=== PATIENT | male | born 1945 | race Caucasian/White ===

== ENCOUNTER → 2016-09-30 | Outpatient (CLI) | payer OTHER ==
[~2016-09-30] MED LIST: ACET-1311 PO; ALBU1.257 NEB; ALBU2SYP9 INH; AMPI500C9 PO; ASCO10003 PO; ATOR-26 PO; CETI10TA84 PO; CIPR1TAB11 PO; CLOP1TAB15 PO; CYAN500T13 PO; FINA5TAB PO; HYT/2 PO; KFL500 PO; LISI-461 PO; METO25TA56 PO; NITR1CAP32 PO; OXYC-57 PO; PYRI100T4 PO; SPRIN/30 INH; SULF800T23 PO; SYMIN/8045 INH; SYMIN160 INH; VNTHFA/IN INH
== END | disposition home or self-care (01) ==
LOC: C.LABSPEC 17:16
PROVIDERS: ATTEND Urology
DX: C67.9 Malignant neoplasm of bladder, unspecified (principal)

== ENCOUNTER 2016-11-27 04:55 | Observation (INO) | payer OTHER ==
[2016-11-17 11:00] VITALS: BMI 39.0
--- NOTE | 2016-11-17 11:49 | PAT Medication Instructions ---
Service Date Nov 17, 2016. Current Home Medication List Albuterol Sulf (Ventolin), 2 PUFF INH Q4 PRN for Shortness of Breath Ascorbic Acid (Vitamin C), 1 TAB PO QAM Atorvastatin (Lipitor), 80 MG PO QPM Budesonide/Formoterol Fumarate (Symbicort 80/4.5 Inhaler), 1 PUFFS INH BID Cetirizine (Zyrtec), 10 MG PO QAM Clopidogrel (Plavix), 75 MG PO QAM Cyanocobalamin (Vitamin B12 500MCG), 500 MCG PO QAM Finasteride (Proscar), 5 MG PO QAM Lisinopril (Zestril), 10 MG PO QAM Metoprolol Tartrate (Lopressor) (Lopressor), 12.5 MG PO BID Pyridoxine (Vitamin B6), 100 MG PO QAM Terazosin Hcl (Hytrin), 2 MG PO QPM Tiotropium [place] (Spiriva Handihaler), 1 CAP INH QAM Medication Instructions For Your Scheduled Surgery - Check with surgeon/prescribing physician for instructions; Clopidogrel (Plavix), 75 MG PO QAM - Hold the following medications the morning of surgery: Pyridoxine (Vitamin B6), 100 MG PO QAM Lisinopril (Zestril), 10 MG PO QAM Cyanocobalamin (Vitamin B12 500MCG), 500 MCG PO QAM Finasteride (Proscar), 5 MG PO QAM Cetirizine (Zyrtec), 10 MG PO QAM Ascorbic Acid (Vitamin C), 1 TAB PO QAM - Take the following medications the morning of surgery with a sip of water: Tiotropium [place] (Spiriva Handihaler), 1 CAP INH QAM Metoprolol Tartrate (Lopressor) (Lopressor), 12.5 MG PO BID Budesonide/Formoterol Fumarate (Symbicort 80/4.5 Inhaler), 1 PUFFS INH BID Albuterol Sulf (Ventolin), 2 PUFF INH Q4 PRN for Shortness of Breath (if needed) - Take the following medications as scheduled the night before surgery: Terazosin Hcl (Hytrin), 2 MG PO QPM Metoprolol Tartrate (Lopressor) (Lopressor), 12.5 MG PO BID Budesonide/Formoterol Fumarate (Symbicort 80/4.5 Inhaler), 1 PUFFS INH BID Albuterol Sulf (Ventolin), 2 PUFF INH Q4 PRN for Shortness of Breath (if needed ) Atorvastatin (Lipitor), 80 MG PO QPM If you have any questions please call us at [phone] or [phone] or [phone]
--- NOTE | 2016-11-17 12:20 | DIAGNOSTIC IMAGING REPORT ---
CHEST 2 VIEWS ROUTINE HISTORY: 71-year-old male resents for preoperative exam. History of COPD. COMPARISON: PET CT 07/18/2015. TECHNIQUE: Frontal and lateral views of the chest FINDINGS: The cardiac silhouette is within normal limits. Calcified granuloma of the right upper lobe laterally is unchanged. There is no pneumothorax or pleural effusion. Lungs are hyperinflated and hyper lucent with diaphragmatic flattening. Masslike opacity of the lingula measures 2.8 x 2.7 cm, likely correlating with the previously described hypermetabolic nodule seen on PET/CT dated 07/18/2015 at which time it measured approximately 2.0 x 2.1 cm. Additionally, there is an ill-defined opacity overlying the spine on lateral view which may correlate with the previously described right lower lobe nodule. Multiple remote appearing right lateral rib fractures are seen. IMPRESSION: 1. Masslike opacity of the lingula likely represents the previously described hypermetabolic nodule seen on PET/CT dated 07/18/2015. Further evaluation with CT of the chest is recommended to assess for progression of disease. 2. Masslike opacity overlying the spine on the lateral view may represent the previously described suspicious nodule of the right lower lobe. 3. Emphysema. 4. Prior granulomatous disease. Electronically signed by: Mauricio Andre 11/17/2016 12:19 PM Dictated Date/Time: 11/17/2016 12:13 PM
[2016-11-17 12:33] LABS: BASO % 0.2 %; BASO ABS # 0.03 K/uL (0-0.2); COMPLETE YES; EOS % 0.8 %; HEMATOCRIT 44.6 % (42-52); LYMPH % 15.8 %; LYMPH ABS # 2.19 K/uL (1.2-3.4); MEAN CELL VOLUME 94.5 fL (80-100); MEAN CORPUSCULAR HEMOGLOBIN 31.6 pg (25-34); MEAN CORPUSCULAR HGB CONC 33.4 g/dl (32-36); MEAN PLATELET VOLUME 10.2 fL (7.4-10.4); MONO % 8.4 %; NEUT % 73.8 %; PLATELET COUNT 255 K/uL (130-400); RED BLOOD COUNT 4.72 M/uL (4.7-6.1); WHITE BLOOD COUNT 13.83 K/uL (4.8-10.8)
[2016-11-17 12:34] LABS: URINE APPEARANCE CLEAR (CLEAR); URINE BILIRUBIN NEG (NEG); URINE COLOR YELLOW; URINE EPITHELIAL CELL AUTO 20-30 /lpf (0-5); URINE NITRITE NEG (NEG); URINE PH 5.5 (4.5-7.5); URINE SPECIFIC GRAVITY 1.009 (1.000-1.030); UROBILINOGEN NEG (NEG)
[2016-11-17 12:37] LABS: MANUAL MICROSCOPIC REQUIRED? NO; REVIEW REQ? NO
[2016-11-17 13:44] LABS: BUN/CREATININE RATIO 11.4 (10-20); CALCIUM 9.5 mg/dl (8.5-10.1); CREATININE 1.1 mg/dl (0.60-1.40); POTASSIUM 4.6 mmol/L (3.5-5.1)
[~2016-11-27] VITALS: Ht 172.7 cm; Wt 114.9 kg
[2016-11-27] VITALS (9 sets, daily range): BP systolic 113–153; BP diastolic 64–94; PULSE 67–95; TEMP 36.6–37; O2SAT 92–97; Ht 172.7 cm; Wt 114.9 kg
[~2016-11-27 04:55] MED LIST changes: -ACET-1311 PO; -ALBU1.257 NEB; -AMPI500C9 PO; -CIPR1TAB11 PO; -KFL500 PO; -NITR1CAP32 PO; -OXYC-57 PO; -SULF800T23 PO; -SYMIN160 INH; -VNTHFA/IN INH
[2016-11-27] MEDS ORDERED: LACTATED RINGER'S 1000ML 1,000 ML IV SCH (06:00)
[2016-11-27] MEDS ORDERED: CIPROFLOXACIN / D5W 400 MG IV SCH (06:00)
[2016-11-27] MEDS ORDERED: CIPR1TAB11 PO (06:10)
[2016-11-27] MEDS ORDERED: PROPOFOL IV EMULSION 10 MG/ML 20 ML VIAL IV ONE (06:55)
[2016-11-27] MEDS ORDERED: LIDOCAINE HCL 2% 2 ML VIAL (20MG/ML) ONE (06:55)
[2016-11-27] MEDS ORDERED: ONDANSETRON INJ 2 MG/ML 2 ML VIAL ONE (06:55)
[2016-11-27] MEDS ORDERED: DEXAMETHASONE SOD INJ 4 MG/ML VIAL ONE (06:55)
[2016-11-27] MEDS ORDERED: FENTANYL CITRATE INJ 50 MCG/1 ML 2 ML VIAL ONE (06:56)
[2016-11-27] MEDS ORDERED: MIDAZOLAM HCL 1 MG/ML 2ML VIAL ONE (06:56)
[2016-11-27] MEDS ORDERED: ATROPINE SULFATE 0.1 MG/ML 5ML SYR IV PRN (07:00)
[2016-11-27] MEDS ORDERED: EpHEDrine SULFATE INJ 50 MG/ML AMP IV PRN (07:00)
[2016-11-27] MEDS ORDERED: FENTANYL CITRATE INJ 50 MCG/1 ML 2 ML VIAL IV PRN (07:00)
[2016-11-27] MEDS ORDERED: ONDANSETRON INJ 2 MG/ML 2 ML VIAL IV PRN (07:00)
--- NOTE | 2016-11-27 07:15 | History & Physical Bridge Note ---
H&P Re-Evaluation Bridge Note: I have examined the patient, reviewed the History & Physical and in the interval since the performance of the History & Physical I have noted the following changes of clinical significance: No changes noted
--- NOTE | 2016-11-27 09:51 | [facility] Post Operative Brief Note ---
Immediate Operative Summary Operative Date Nov 27, 2016. Pre-Operative Diagnosis Bladder Tumor, Elevated Prostatic Specific Antigen Post-Operative Diagnosis Bladder Tumor, Elevated Prostatic Specific Antigen Procedure(s) Performed Transuretheral Resection Bladder Tumor, Prostatic Needle Biopsy, Partial Resection of Prostate Surgeon Dr. Paula Roof Cement And Paint Maker Helper Surgeon(s) none Estimated Blood Loss 50 cc Findings large obstructing prostae w large median lobe that reqired partial resction to access r bladder neck bladder tumor 4 cm tumor r bladder neck l lateral wall several smaller superficial tumorws several small tumors 1 cm or less posterior wall behind trigone Specimens A: Left Lateral Wall Bladder Biopsy B: Right Anterior Wall Bladder Biopsy C: Median Lobe of Prostate/ Right Lateral Lobe at Base D: Large Bladder Tumor Right Bladder Neck E: Base of Bladder Tumor F: Base of Right Prostate Biopsy G: Mid Prostate Biopsy Right H: [place] of Right Prostate Biopsy I: Anterior Prostate Biopsy Right J: Base of Left Prostate Biopsy K: Mid Prostate Biopsy Left L: [place] of Prostate Biopsy Left Complication(s) None
[2016-11-27] MEDS ORDERED: OXYCODONE/ACETAMINOPHEN 5-325 TAB PO PRN (10:00)
[2016-11-27] MEDS ORDERED: MoRPHine SULFATE 2 MG/ML CARP IV PRN (10:00)
--- NOTE | 2016-11-27 10:13 | [facility] Operative Report ---
Operative Report Operative Date Nov 27, 2016. Pre-Operative Diagnosis Bladder Tumor, Elevated Prostatic Specific Antigen Post-Operative Diagnosis Bladder Tumor, Elevated Prostatic Specific Antigen Procedure(s) Performed Transuretheral Resection Bladder Tumor, Prostatic Needle Biopsy, Partial Resection of Prostate Surgeon Dr. Paula Training Program Developer Surgeon(s) none Estimated Blood Loss 50 cc Findings Patient had a large prostate with a large median lobe which made access to the largest bladder tumor at the right bladder neck impossible. Resection was necessary of the right base prostate and median lobe to get access to the bladder tumor. Patient had several 1 cm or less bladder tumors on the posterior wall Patient had some superficial tumors lateral and posterior to the left ureteral orifice that was biopsied and fulgurated Specimens A: Left Lateral Wall Bladder Biopsy B: Right Anterior Wall Bladder Biopsy C: Median Lobe of Prostate/ Right Lateral Lobe at Base D: Large Bladder Tumor Right Bladder Neck E: Base of Bladder Tumor F: Base of Right Prostate Biopsy G: Mid Prostate Biopsy Right H: [place] of Right Prostate Biopsy I: Anterior Prostate Biopsy Right J: Base of Left Prostate Biopsy K: Mid Prostate Biopsy Left L: [place] of Prostate Biopsy Left Description of Procedure The patient was taken to the cystoscopy suite he being given preoperative antibiotics he been off Plavix for 5 days. He had Venodyne stockings on. He was placed in the dorsal lithotomy position and prepped and draped in the usual sterile fashion. A 22 Portuguese cystoscope was passed with a 30 mL lens and the bladder was carefully examined with the 30 and the 7910 lens. Patient had a large median lobe and a large obstructing prostate which made access to the largest tumor which was inferior lateral to the right ureteral orifice difficult. Patient also had several smaller 1 cm or less tumors on the posterior wall behind the trigone and on the left lateral wall posterior lateral to the trigone. Initially the tumors were resected with cup biopsy forceps and the Bovie catheter on the left side and the smaller tumors were biopsied with the cup biopsy forceps and fulgurated with the Bugbee as well. At this juncture I was unable to access the 45 cm tumor near the bladder neck inferior to the right ureteral orifice without resecting part of the prostate and this was done. Approximately 5-6 g of tissue was resected at the median lobe and the right entrance to the bladder. At this point was able to access the large 4-5 cm bladder tumor with the resectoscope and it was resected down to the base. 2 cup biopsy of the base of the tumor were taken. The base of the tumor was broadly fulgurated. At this point the scope was removed. There was no evidence of bleeding from the prostate of the bladder prior to this. The ultrasound was taken from the operative field and a probe was placed in the rectum. Images were taken and the prostate was well over 60-70 g. Biopsies were taken from right base to the right middle part of the prostate to the right apex 2 and the right anterior portion 1. Moderate bleeding this point the left gail prostate tissue were taken at the base to taken from the mid aspect of the prostate in 2 taken from the apex. The patient was then transferred to the recovery room after Sharma catheter was placed in stable condition this. Again operative report on Maikol Shetty. I attest to the content of the Intraoperative Record and any orders documented therein. Any exceptions are noted below.
[2016-11-27] MEDS ORDERED: ALBUT/IPRATROP 3MG/0.5MG NEB 3 ML VIAL INH PRN (11:45)
[2016-11-27] MEDS: D5W AND 1/2NSS 1,000 ML IV SCH ×2 (11:47→23:22)
--- NOTE | 2016-11-27 11:51 | Anesthesiology Progress Note ---
Anesthesia Post Op Note Date & Time Nov 27, 2016 at 11:51 Vital Signs Pain Intensity: 0.0 Vital Signs Past 12 Hours Date Time Temp Pulse Resp B/P (MAP) Pulse Ox O2 Delivery O2 Flow Rate FiO2 11/27/16 10:45 Nasal Cannula 2.0 11/27/16 10:45 36.7 80 16 153/81 (105) 97 Nasal Cannula 2.0 11/27/16 10:45 Nasal Cannula 2.0 11/27/16 10:25 36.1 72 18 128/83 95 Nasal Cannula 2 11/27/16 10:15 77 18 146/82 94 Nasal Cannula 2 11/27/16 10:05 76 20 159/89 95 Nasal Cannula 2 11/27/16 09:55 85 20 159/81 98 Oxymask 10 11/27/16 09:45 94 20 173/82 98 Oxymask 10 11/27/16 09:34 36 106 24 133/70 98 Oxymask 10 11/27/16 05:51 36.7 88 22 131/65 (87) 94 Room Air Notes Mental Status: alert / awake / arousable, participated in evaluation Pt Amnestic to Procedure: Yes Nausea / Vomiting: adequately controlled Pain: adequately controlled Airway Patency, RR, SpO2: stable & adequate BP & HR: stable & adequate Hydration State: stable & adequate Anesthetic Complications: no major complications apparent
--- NOTE | 2016-11-27 12:28 | Medical Consult ---
Consultation Date of Consultation: Nov 27, 2016. Attending Physician: Richard Paula M.D. History of Present Illness This is a 71 year old male with a PMH of a L occipital CVA, COPD and ongoing tobacco abuse, HTN, hx. of non-invasive bladder CA s/p BCG immunotherapy, presents for a TURBT procedure. States he goes to the [facility] in [place] - had a routine cystoscopy and they mentioned that he had recurrence of bladder tumors - recommended to go to [place], but patient refused and is now here for TURBT procedure. No issues after the procedure, denies any symptoms. Social History Smoking Status: Current Every Day Smoker Allergies Coded Allergies: Aspirin (Verified Allergy, Unknown, ITCHY, 11/27/16) Uncoded Allergies: ADHESUVE TAPE (Allergy, Unknown, RASH, 11/17/16) YELLOW MUSTARD (Allergy, Unknown, HIVES, SOB, ITCHY, 11/17/16) Current Inpatient Medications Current Inpatient Medications Medications (Trade) Dose Ordered Sig/Mckenna Route Start Time Stop Time Status Last Admin Dose Admin Ciprofloxacin/ Dextrose 200 ml @ 100 mls/hr PREOP IV 11/27/16 06:00 11/27/16 18:00 11/27/16 07:16 100 MLS/HR Fentanyl Citrate (Fentanyl Inj) 50 mcg Q5M PRN IV 11/27/16 07:00 11/27/16 12:00 11/27/16 10:08 50 MCG Ondansetron HCl (Zofran Inj) 4 mg ONE PRN IV 11/27/16 07:00 11/27/16 12:00 Ephedrine Sulfate (EpHEDrine SULFATE INJ) 5 mg Q5M PRN IV 11/27/16 07:00 11/27/16 12:00 Atropine Sulfate (Atropine Sulfate 0.1MG/Ml Inj) 0.5 mg Q1M PRN IV 11/27/16 07:00 11/27/16 12:00 Dextrose/Sodium Chloride 1,000 ml @ 75 mls/hr [id number] IV 11/27/16 09:51 12/27/16 09:50 Morphine Sulfate (MoRPHine SULFATE INJ) 2 mg Q1H PRN IV 11/27/16 10:00 12/11/16 09:59 Oxycodone/ Acetaminophen (Percocet 5-325mg Tab) 1 tab Q4H PRN PO 11/27/16 10:00 12/11/16 09:59 Albuterol Sulfate (Ventolin Syrup) 4 mg Q4 PRN PO 11/27/16 10:00 12/27/16 09:59 UNV Atorvastatin Calcium (Lipitor Tab) 80 mg QPM PO 11/27/16 21:00 12/27/16 20:59 Budesonide/ Formoterol Fumarate (Symbicort 80/ 4.5 Inh) 1 puffs BID INH 11/27/16 21:00 12/27/16 20:59 Cetirizine HCl (zyrTEC TAB) 10 mg QAM PO 11/28/16 09:00 12/28/16 08:59 Ciprofloxacin (Ciprofloxacin Tab) 500 mg BID PO 11/27/16 21:00 12/07/16 20:59 Finasteride (Proscar Tab) 5 mg QAM PO 11/28/16 09:00 12/28/16 08:59 Lisinopril (Zestril Tab) 10 mg QAM PO 11/28/16 09:00 12/28/16 08:59 Metoprolol Tartrate (Lopressor Tab) 12.5 mg BID PO 11/27/16 21:00 12/27/16 20:59 Pyridoxine HCl (Vitamin B-6 Tab) 100 mg QAM PO 11/28/16 09:00 12/28/16 08:59 Terazosin HCl (Hytrin Cap) 2 mg QPM PO 11/27/16 21:00 12/27/16 20:59 Tiotropium [place] (Spiriva Handihaler Inhaler) 1 puff QAM INH 11/28/16 09:00 12/28/16 08:59 Review of Systems Constitutional: No fever, No chills, No weakness Eyes: + problem reported (chronic R peripheral vision issues) Respiratory: No cough, No sputum, No wheezing, No shortness of breath, No dyspnea on exertion Cardiovascular: No chest pain Abdomen: No pain, No nausea, No vomiting, No diarrhea Genitourinary - Male: + urinary frequency, + urinary hesitancy, No hematuria, No dysuria, No urinary urgency, No urinary retention, No urinary incontinence Neurologic: No weakness, No vertigo, No balance problems Psychiatric: No depression symptoms, No anxiety, No insomnia Endocrine: No fatigue Hematologic / Lymphatic: No abnormal bleeding/bruising Integumentary: No rash Allergic / Immunologic: No environmental allergies, No seasonal allergies Physical Exam Date Time Temp Pulse Resp B/P (MAP) Pulse Ox O2 Delivery O2 Flow Rate FiO2 11/27/16 10:45 Nasal Cannula 2.0 11/27/16 10:45 36.7 80 16 153/81 (105) 97 Nasal Cannula 2.0 11/27/16 10:45 Nasal Cannula 2.0 11/27/16 10:25 36.1 72 18 128/83 95 Nasal Cannula 2 11/27/16 10:15 77 18 146/82 94 Nasal Cannula 2 11/27/16 10:05 76 20 159/89 95 Nasal Cannula 2 11/27/16 09:55 85 20 159/81 98 Oxymask 10 11/27/16 09:45 94 20 173/82 98 Oxymask 10 11/27/16 09:34 36 106 24 133/70 98 Oxymask 10 11/27/16 05:51 36.7 88 22 131/65 (87) 94 Room Air General Appearance: no apparent distress, + obese Head: normocephalic, atraumatic Eyes: normal inspection ENT: hearing grossly normal Respiratory/Chest: chest non-tender, lungs clear, normal breath sounds, no respiratory distress, no accessory muscle use Cardiovascular: regular rate, rhythm, no edema, no murmur Abdomen/GI: normal bowel sounds, non tender, soft, + hernia (reducible, non- tender inguinal hernia) Extremities/Musculoskelatal: normal capillary refill, no pedal edema Neurologic/Psych: no motor/sensory deficits, alert, normal mood/affect Skin: normal color Lymphatic: no adenopathy Assessment & Plan This is a 71 year old male with a PMH of a L occipital CVA, COPD and ongoing tobacco abuse, HTN, hx. of non-invasive bladder CA s/p BCG immunotherapy presents for TURP procedure Bladder Tumor s/p TURBT resected bladder tumor, prostate biopsy secondary to elevated PSA management as per urology, including Cipro, Proscar doing well post-operatively check CBC and PRP Hx. of L occipital CVA hold Plavix for now, restart 5-7 days after procedure, when okay with urology continue high-intensity statin therapy COPD continue inhalers nebs as needed wean O2 as tolerated, does not use oxygen at home ambulation Lung Masses in the setting of Ongoing Tobacco Use patient has had multiple lung masses states he's had a biopsy of R lung, but was not sure of the results; resulted in R pneumothorax at that time CXR on 11/17 suggests multiple masses including lingula and R lower lobe recommend outpatient CT or PET scan HTN blood pressure stable continue Lisinopril and metoprolol DVT ppx as per urology FULL CODE
[2016-11-27 12:49] LABS: HEMATOCRIT 42.7 % (42-52); MEAN CELL VOLUME 94.9 fL (80-100); MEAN CORPUSCULAR HEMOGLOBIN 31.6 pg (25-34); MEAN CORPUSCULAR HGB CONC 33.3 g/dl (32-36); MEAN PLATELET VOLUME 10.4 fL (7.4-10.4); PLATELET COUNT 198 K/uL (130-400); WHITE BLOOD COUNT 10.02 K/uL (4.8-10.8)
[2016-11-27] MEDS ORDERED: IV FLUIDS COMPLETED PRN (13:00)
[2016-11-27 13:16] LABS: BUN/CREATININE RATIO 15.1 (10-20); CALCIUM 8.6 mg/dl (8.5-10.1); CREATININE 1.1 mg/dl (0.60-1.40); POTASSIUM 4.4 mmol/L (3.5-5.1)
[2016-11-27] MEDS: BUDESONIDE/FORMOTEROL FUMARATE 80/4.5 60 PUFFS/INHALER INH SCH (20:45)
[2016-11-27] MEDS: METOPROLOL TARTRATE 25 MG TAB PO SCH (20:47)
[2016-11-27] MEDS: CIPROFLOXACIN 250 MG TAB PO SCH (20:48)
[2016-11-27] MEDS ORDERED: ATORVASTATIN 40 MG TAB PO SCH (21:00)
[2016-11-28 03:00] VITALS: BP 115/78; PULSE 68; TEMP 36.6; O2SAT 93
[2016-11-28 07:15] VITALS: BP 130/74; PULSE 72; TEMP 36.6; O2SAT 92
--- NOTE | 2016-11-28 07:57 | Anesthesiology Progress Note ---
Anesthesia Post Op Note Date & Time Nov 28, 2016 at 07:56 Vital Signs Vital Signs Past 12 Hours Date Time Temp Pulse Resp B/P (MAP) Pulse Ox O2 Delivery O2 Flow Rate FiO2 11/28/16 07:15 36.6 72 16 130/74 (92) 92 Room Air 11/28/16 07:15 Room Air 11/28/16 03:00 36.6 68 16 115/78 (90) 93 Room Air 11/27/16 23:25 Room Air 11/27/16 22:50 36.6 77 16 118/64 (82) 92 Room Air 11/27/16 20:25 37.0 81 19 113/69 (84) 92 Room Air Notes Mental Status: alert / awake / arousable, participated in evaluation Pt Amnestic to Procedure: Yes Nausea / Vomiting: adequately controlled Pain: adequately controlled Airway Patency, RR, SpO2: stable & adequate BP & HR: stable & adequate Hydration State: stable & adequate Anesthetic Complications: no major complications apparent
--- NOTE | 2016-11-28 08:07 | Progress Note ---
Subjective Date of Service: Nov 28, 2016. Subjective Pt evaluation today including: conversation w/ patient, physical exam, chart review, lab review, review of studies Pain: none Voiding: luis catheter in place Objective Vital Signs Date Time Temp Pulse Resp B/P (MAP) Pulse Ox O2 Delivery O2 Flow Rate FiO2 11/28/16 07:15 36.6 72 16 130/74 (92) 92 Room Air 11/28/16 07:15 Room Air 11/28/16 03:00 36.6 68 16 115/78 (90) 93 Room Air 11/27/16 23:25 Room Air 11/27/16 22:50 36.6 77 16 118/64 (82) 92 Room Air 11/27/16 20:25 37.0 81 19 113/69 (84) 92 Room Air 11/27/16 15:20 Nasal Cannula 2.0 11/27/16 15:17 36.8 91 19 132/94 (107) 94 Nasal Cannula 3.0 11/27/16 13:47 95 16 147/71 (96) 92 Room Air 11/27/16 12:45 87 17 137/82 (100) 95 Nasal Cannula 2.0 11/27/16 12:10 67 16 152/75 (100) 97 11/27/16 11:15 36.7 72 16 150/80 (103) 97 Nasal Cannula 2.0 11/27/16 10:45 Nasal Cannula 2.0 11/27/16 10:45 36.7 80 16 153/81 (105) 97 Nasal Cannula 2.0 11/27/16 10:45 Nasal Cannula 2.0 11/27/16 10:25 36.1 72 18 128/83 95 Nasal Cannula 2 11/27/16 10:15 77 18 146/82 94 Nasal Cannula 2 11/27/16 10:05 76 20 159/89 95 Nasal Cannula 2 11/27/16 09:55 85 20 159/81 98 Oxymask 10 11/27/16 09:45 94 20 173/82 98 Oxymask 10 11/27/16 09:34 36 106 24 133/70 98 Oxymask 10 Physical Exam Comments: urine pink Laboratory Results Last 24 Hours Test 11/27/16 12:27 White Blood Count 10.02 K/uL Red Blood Count 4.50 M/uL Hemoglobin 14.2 g/dL Hematocrit 42.7 % Mean Corpuscular Volume 94.9 fL Mean Corpuscular Hemoglobin 31.6 pg Mean Corpuscular Hemoglobin Concent 33.3 g/dl RDW Standard Deviation 46.3 fL RDW Coefficient of Variation 13.3 % Platelet Count 198 K/uL Mean Platelet Volume 10.4 fL Sodium Level 137 mmol/L Potassium Level 4.4 mmol/L Chloride Level 104 mmol/L Carbon Dioxide Level 25 mmol/L Anion Gap 8.0 mmol/L Blood Urea Nitrogen 17 mg/dl Creatinine 1.10 mg/dl Est Creatinine Clear Calc Drug Dose 78.0 ml/min Estimated GFR () 79.0 Estimated GFR (Non- 68.1 BUN/Creatinine Ratio 15.1 Random Glucose 158 mg/dl Calcium Level 8.6 mg/dl Assessment and Plan Catheter removed voiding trial ok to d/c to home if able to void and urine remains pink or clear Pt understands to finish cipro he has at home Pt has f/u with a pulmonary doctor in [place] Pt to start plavix after hematuria resolves f/u as needed
--- NOTE | 2016-11-28 08:11 | Discharge Instructions ---
Discharge Instructions Date of Service Nov 28, 2016. Admission Reason for Admission: Bladder Tumor, Elevated Psa Discharge Discharge Diagnosis / Problem: s/p turbt and partial turp Discharge Goals Goal(s): Decrease discomfort, Increase independence, Improve disease control Activity Recommendations Activity Limitations: per Instructions/Follow-up section (light activity) Exercise/Sports Limitations: gradually increase as tolerated . Current Hospital Diet Patient's current hospital diet: Regular Diet Discharge Diet Recommended Diet: Regular Diet Procedures Procedures Performed: Transuretheral Resection Bladder Tumor, Prostatic Needle Biopsy, Partial Resection of Prostate Pending Studies Studies pending at discharge: no Medical Emergencies . Who to Call and When: Medical Emergencies: If at any time you feel your situation is an emergency, please call 911 immediately. . Non-Emergent Contact Non-Emergency issues call your: Neurologist, Urologist Call Non-Emergent contact if: your pain is not controlled you are having blood with clots in urine and difficuly voiding go to ER for symptoms of stroke . . "Provider Documentation" section prepared by Richard Paula. . VTE Core Measure Inpt VTE Proph given/why not?: SCD's
[2016-11-28] MEDS: BUDESONIDE/FORMOTEROL FUMARATE 80/4.5 60 PUFFS/INHALER INH SCH (08:14)
[2016-11-28] MEDS: METOPROLOL TARTRATE 25 MG TAB PO SCH (08:16)
[2016-11-28] MEDS: CIPROFLOXACIN 250 MG TAB PO SCH (08:16)
[2016-11-28] MEDS ORDERED: PYRIDOXINE HCL 50 MG TAB PO SCH (09:00)
[2016-11-28] MEDS ORDERED: FINASTERIDE 5 MG TAB PO SCH (09:00)
[2016-11-28] MEDS ORDERED: CETIRIZINE HCL 10 MG TAB PO SCH (09:00)
[2016-11-28] MEDS ORDERED: TIOTROPIUM BROMIDE 5 PUFF/90 MCG INH INH SCH (09:00)
[2016-11-28] MEDS ORDERED: LISINOPRIL 10 MG TAB PO SCH (09:00)
[2016-11-28 10:04] VITALS: BP 130/74; PULSE 72; TEMP 36.6; O2SAT 92
--- NOTE | 2016-11-28 14:43 | Progress Note ---
Medicine Progress Note Date & Time of Visit: Nov 28, 2016 at 14:13. (Tabitha Kothari, P.A.-C.) Subjective Pt is doing well on POD#1s/p transurethral resection of bladder tumor. States that his catheter had been removed earlier that same morning and that he was experiencing minimal pain with urination. Was told by urology that as long as he did not pass any blood clots through urine, that he could be discharged home. No urinary hesitancy or mary blood in urine. Denied fever, chills, nausea or vomiting. (Tabitha Kothari, P.A.-C.) Objective Last 8 Hrs Date Time Temp Pulse Resp B/P (MAP) Pulse Ox O2 Delivery O2 Flow Rate FiO2 11/28/16 10:04 36.6 72 16 92 Room Air 11/28/16 07:15 36.6 72 16 130/74 (92) 92 Room Air 11/28/16 07:15 Room Air Physical Exam: General-alert, no apparent distress, conversational Eyes-normal inspection Neck-supple, no adenopathy Lungs-clear breath sounds bilaterally. No wheezing, rales or rhonchi. Heart-Regular rate and rhythm. No murmur. Abdomen-normoactive bowel sounds. Soft, non-tender to palpation. Extremities- Normal capillary refill. No edema observed in extremities. Neuro- A&Ox3; motor/sensory function intact. Skin- warm and dry. (Tabitha Kothari, P.A.-C.) Assessment & Plan This is a 71 year old male with a PMH of non-invasive bladder CA (s/p BCG immunotherapy), L occipital CVA, COPD and HTN who is POD#1 s/p transurethral resection of a bladder tumor (TURBT). Bladder Tumor s/p TURBT: -Resected bladder tumor; doing well in postop -Vital signs and CBC WNL following procedure -Prostate biopsy secondary to elevated PSA; pathology is pending -Management per Dr. Paula, including Cipro, Proscar -Per Dr. Paula's note, pt is to be discharged after catheter removal test as long has he does not pass blood clots Hx. of L occipital CVA: -Continue holding Plavix for now with plans to restart in a few days once pt is no longer experiencing pink urine -Will follow up with urology -Continue high-intensity statin therapy COPD: -Plan to continue home meds (inhalers and nebs as needed) -Is satting well on RA (92%). Does not use oxygen at home -To follow up with out-patient truck packer later this month Lung Masses: -Patient has had multiple lung masses in the setting of ongoing tobacco use. CXR on 11/17 suggests multiple masses including lingula and R lower lobe. -Discussed hx of these masses and pt expressed that his last lung biopsy resulted in complication of a R pneumothorax and therefore he has no interest in further investigation of lung masses. Recommend outpatient CT or PET scan. HTN: stable -Continue Lisinopril and metoprolol DVT ppx: as per urology Dispo: per urology (Tabitha Kothari, P.A.-C.) patient was discharged before I was able to evaluated him. Pantera Carlos MD (Pantera Carlos MD)
--- NOTE | 2016-12-16 23:26 | DISCHARGE SUMMARY ---
REASON FOR THE ADMISSION: The patient had a history of bladder cancer and an elevated PSA. The patient has been followed by the [facility], previously had BCG and many years ago, presented to me after being diagnosed with bladder cancer earlier in the fall, but did not want to go to [place] for his treatment. It took quite some time for him to be referred to me and then after was referred, for him to come back and be scheduled, also, for a transrectal ultrasound and biopsy at the same time, because he has history of an elevated PSA. The patient was taken and admitted on the November 27. Please refer to the operative report for a description of this procedure. Postoperatively, he had a Sharma catheter placed. He did well. The next morning he had relatively clear urine. Because of his medical problems, a medical consultation was obtained, but nothing was added at that time. He was discharged to home without a Sharma catheter, able to void, the following day, with antibiotics and instructions to follow up in my office. YASEMIN
== END 2016-11-28 11:22 | disposition home or self-care (01) ==
LOC: C.ACU 04:55 → C.MSW 09:57 → ENRESERV 10:17
PROVIDERS: ADMIT Urology; ATTEND Urology
DX: C67.5 Malignant neoplasm of bladder neck (principal); C61 Malignant neoplasm of prostate; J44.9 Chronic obstructive pulmonary disease, unspecified; E66.9 Obesity, unspecified; F17.200 Nicotine dependence, unspecified, uncomplicated; I10 Essential (primary) hypertension; Z87.440 Personal history of urinary (tract) infections; E78.5 Hyperlipidemia, unspecified; Z86.73 Personal history of transient ischemic attack (TIA), and cerebral infarction without residual deficits; Z82.49 Family history of ischemic heart disease and other diseases of the circulatory system; Z83.3 Family history of diabetes mellitus; Z80.8 Family history of malignant neoplasm of other organs or systems; Z80.1 Family history of malignant neoplasm of trachea, bronchus and lung; Z80.6 Family history of leukemia

== ENCOUNTER → 2016-12-09 | Outpatient (CLI) | payer OTHER ==
[~2016-12-09] MED LIST changes: +CIPR1TAB11 PO; -CLOP1TAB15 PO
== END | disposition home or self-care (01) ==
LOC: C.LABSPEC 16:50
PROVIDERS: ATTEND Urology
DX: C67.9 Malignant neoplasm of bladder, unspecified (principal); D49.4 Neoplasm of unspecified behavior of bladder

== ENCOUNTER → 2017-03-16 | Outpatient (CLI) | payer OTHER ==
[~2017-03-16] MED LIST changes: +ACET-1311 PO; -ALBU2SYP9 INH; +AMPI500C9 PO; -CIPR1TAB11 PO; +CLOP1TAB15 PO; +NITR1CAP32 PO; +OPTIRAY 320 IV PRN; +OXYC-57 PO; -SYMIN/8045 INH; +SYMIN160 INH; +VNTHFA/IN INH
--- NOTE | 2017-03-16 11:55 | DIAGNOSTIC IMAGING REPORT ---
CT SCAN OF THE CHEST WITH IV CONTRAST CLINICAL HISTORY: Metastatic bladder cancer. COMPARISON STUDY: Chest x-ray dated 11/17/2016 and PET/CT dated 07/18/15/ TECHNIQUE: Following the IV administration of 93 cc of Optiray 320, CT scan of the thorax was performed from the thoracic inlet to the upper abdomen. Images are reviewed in the axial, sagittal, and coronal planes. IV contrast was administered without complication. A dose lowering technique was utilized adhering to the principles of ALARA. CT DOSE: 537.62 mGycm FINDINGS: Thyroid: Imaged portions of the thyroid gland are normal in size and attenuation. A subcentimeter low-attenuation nodule is suggested in the right lobe. Thoracic aorta: There is mild atherosclerotic calcification of the thoracic aorta, which is normal in caliber and demonstrates 5-vessel variant arch anatomy. 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 No dissection is seen. Pulmonary vasculature: The pulmonary trunk is normal in caliber. There are no filling defects identified in the central pulmonary vessels to indicate pulmonary embolus. Note that this examination was not protocoled for evaluation of the pulmonary arteries. Heart: The heart is normal in size and there is trace pericardial effusion. The coronary arteries are densely calcified. Lungs and pleural spaces: Advanced emphysema is observed. There is no airspace consolidation typical for pneumonia or pleural effusion. Pulmonary metastases are again seen and have enlarged from 07/18/2015. The largest lesion is present in the superior segment of the right lower lobe on image #134 and measuring 4.5 x 2.9 cm (previously measuring 2.3 x 1.5 cm on 07/18/2015). A lesion in the lingula on image #181 measures 3.4 x 2.6 cm (previously measuring 2.1 x 2.0 cm). Large calcified lesions/granuloma in the right upper lobe seen image #121 the the paramediastinal right lower lobe on image #133 are unchanged. A lesion in the right lung base image #204 is also now densely calcified. An indeterminant 3 mm pulmonary nodules at the left lung base image #194. This was not clearly seen previously. Layering secretions are noted in the trachea. Mediastinum: There are numerous subcentimeter prominent mediastinal lymph nodes. These were FDG avid on the 2016 PET examination. The largest nodes are present in the AP window and measure up to 10 mm short axis. Jasmina: Clear. Axillae: There is no axillary lymphadenopathy. Upper abdomen: Numerous cysts are present in the upper poles of the partially imaged kidneys. A subcentimeter hypodensity in the right lobe of the liver seen on image #221 likely represents a cyst but is too small for definitive characterization. There is glandular atrophy of the partially visualized pancreas. Skeletal structures: The skeletal structures are osteopenic. There are healed bilateral rib fractures. There are mild and age indeterminant superior endplate compression deformities of T5 and T6. No lytic or blastic bony lesions are seen. IMPRESSION: 1. Advanced emphysema. 2. Large pulmonary metastases are again seen. These have increased in size from 07/18/2015. 3. Large calcified granulomas are similar to previous. 4. Mildly enlarged mediastinal lymph nodes are similar to previous. These likely represent metastatic disease as these were FDG avid by PET on 07/18/2015. 5. There is no airspace consolidation typical for pneumonia or pleural effusion. Electronically signed by: Reinaldo Monge M.D. 03/16/2017 11:54 AM Dictated Date/Time: 03/16/2017 11:43 AM
== END | disposition home or self-care (01) ==
LOC: C.CTS 03-13 11:43
PROVIDERS: ATTEND Urology
DX: C67.9 Malignant neoplasm of bladder, unspecified (principal); C78.00 Secondary malignant neoplasm of unspecified lung; J43.9 Emphysema, unspecified; J84.10 Pulmonary fibrosis, unspecified

== ENCOUNTER → 2017-04-06 | Outpatient (CLI) | payer OTHER ==
[~2017-04-06] MED LIST changes: -AMPI500C9 PO; -CLOP1TAB15 PO; -NITR1CAP32 PO; -OPTIRAY 320 IV PRN; -OXYC-57 PO; +SULF800T23 PO
--- NOTE | 2017-04-06 15:27 | DIAGNOSTIC IMAGING REPORT ---
PET/CT CLINICAL HISTORY: Bladder cancer. TECHNIQUE: A PET/CT was performed from the skull base through the upper thighs following intravenous injection of 11.13 mCi of F 18 FDG IV. The injection was performed at 11:39 AM on April 06, 2017 and imaging began at 12:34 PM on April 06, 2017. Unenhanced CT was performed for attenuation correction purposes and anatomic localization. COMPARISON STUDY: PET/CT July 18, 2015, CT of the abdomen and pelvis January 08, [address] January 14, 2017. FINDINGS: Head and neck: No abnormal FDG uptake is identified within the neck. There is no cervical lymphadenopathy. Chest: Mildly enlarged mediastinal lymph nodes shown on PET/CT of July 18, 2015 have slightly decreased in size. AP window lymph node shown on image 89 measures 9 mm. SUV max for this lymph node is now 3. The SUV max previously measured 4. Moderate emphysema is noted. There are several calcified granulomas within the lungs. A irregular subpleural mass within the right lower lobe measures 4.5 x 2.9 cm. It previously measured 2.3 x 1.5 cm on PET/CT of July 18, 2015. This is similar in size to chest CT of March 16, 2017. The SUV max of this mass is 12.6. A 3.4 x 2.4 cm spiculated lingular nodule has increased in size since CT of July 18, 2015 when it measured 2.1 x 2 cm. The SUV max of this lesion is 3. This is unchanged since prior chest CT. Abdomen and Pelvis: A right ureteral stent is in place. Mild right collecting system dilatation is noted. The extensive urothelial lesion within the right collecting system is better depicted on CT of January 08, 2017. Water attenuation bilateral renal lesions reflect cysts. No enlarged abdominal or pelvic lymph nodes are present. Nonobstructing right renal calculi are present. Bladder wall thickening is noted. Prostate is moderately enlarged. Musculoskeletal: Mild multifocal radiotracer uptake is identified, most evident within the thoracic and lumbar spines. No corresponding abnormality is identified by CT. IMPRESSION: 1. Moderate increase in size of the FDG avid right lower lobe and lingular lesions since PET/CT of July 18, 2015 consistent with a neoplastic process. The imaging appearance favors primary lung malignancy and these could reflect synchronous lung carcinomas. However, metastatic disease could appear similar. 2. Mild decrease in size and FDG activity of the previously described mediastinal lymph nodes since PET/CT of July 18, 2015. These remain indeterminate. 3. No evidence of metastatic disease within the abdomen or pelvis. The known extensive urothelial malignancy within the right collecting system is better depicted on contrast-enhanced CT of January 08, 2017 and is obscured on this PET/CT. 4. Mild multifocal uptake within the thoracic and lumbar spine without CT correlate. This uptake is nonspecific although likely benign. This should be assessed on subsequent imaging studies. Electronically signed by: Giovanny Milian M.D. 04/06/2017 3:25 PM Dictated Date/Time: 04/06/2017 2:32 PM
== END | disposition home or self-care (01) ==
LOC: C.PET 10:12
PROVIDERS: ATTEND Physician Assistant
DX: C67.9 Malignant neoplasm of bladder, unspecified (principal); J98.4 Other disorders of lung

== ENCOUNTER → 2017-04-08 | Outpatient (CLI) | payer OTHER ==
[~2017-04-08] MED LIST changes: +KFL500 PO
== END | disposition home or self-care (01) ==
LOC: C.LABSPEC 17:22
PROVIDERS: ATTEND Urology
DX: N39.0 Urinary tract infection, site not specified (principal)

== ENCOUNTER 2017-04-10 13:22 | Observation (INO) | payer OTHER ==
[~2017-04-10] VITALS: Ht 170.2 cm; Wt 108.4 kg
[~2017-04-10 13:22] MED LIST changes: -KFL500 PO; -SULF800T23 PO
[2017-04-10] MEDS ORDERED: METHYLPREDNISOLONE 125 MG VIAL IV STA (14:00)
[2017-04-10] MEDS ORDERED: FAMOTIDINE 20MG/5ML IV PUSH IV STA (14:00)
[2017-04-10] MEDS ORDERED: DiphenhydrAMINE HCL 50 MG/ML VIAL IV STA (14:00)
[2017-04-10 14:20] LABS: BASO % 0.3 %; BASO ABS # 0.04 K/uL (0-0.2); COMPLETE YES; EOS % 2.1 %; HEMATOCRIT 38.9 % (42-52); IG% 4.1 %; LYMPH % 16.5 %; LYMPH ABS # 2.56 K/uL (1.2-3.4); MEAN CELL VOLUME 95.6 fL (80-100); MEAN CORPUSCULAR HEMOGLOBIN 31.4 pg (25-34); MEAN CORPUSCULAR HGB CONC 32.9 g/dl (32-36); MEAN PLATELET VOLUME 9.7 fL (7.4-10.4); PLATELET COUNT 421 K/uL (130-400); RED BLOOD COUNT 4.07 M/uL (4.7-6.1); WHITE BLOOD COUNT 15.47 K/uL (4.8-10.8)
[2017-04-10 14:27] LABS: BLOOD UREA NITROGEN 17 mg/dl (7-18); BUN/CREATININE RATIO 13.7 (10-20); CALCIUM 9.1 mg/dl (8.5-10.1); CARBON DIOXIDE 21 mmol/L (21-32); CHLORIDE 104 mmol/L (98-107); CREATININE 1.21 mg/dl (0.60-1.40); GLUCOSE 104 mg/dl (70-99); POTASSIUM 3.9 mmol/L (3.5-5.1); SODIUM 135 mmol/L (136-145)
[2017-04-10 14:30] LABS: ALKALINE PHOSPHATASE 101 U/L (45-117); ALT/SGPT 37 U/L (12-78); AST/SGOT 21 U/L (15-37)
[2017-04-10] MEDS ORDERED: SULF800T23 PO (15:23)
[2017-04-10] MEDS ORDERED: HydrALAZINE HCL 20 MG/ML VIAL IV. PRN (18:15)
[2017-04-10] MEDS ORDERED: ALBUTEROL HFA 8 GM INHALER INH PRN (18:15)
[2017-04-10] MEDS ORDERED: CETIRIZINE HCL 10 MG TAB PO PRN (18:15)
[2017-04-10] MEDS ORDERED: ACETAMINOPHEN 325 MG TAB PO PRN (18:15)
--- NOTE | 2017-04-10 18:58 | History and Physical ---
History & Physical Date & Time of Service: Apr 10, 2017 at 18:26 Chief Complaint: Swollen Tongue Headache Primary Care Physician: Kathy Del Cid History of Present Illness Source: patient Patient is a 72-year-old male that presents with a one-day history of left sided tongue swelling. The patient woke up this morning and took his morning medications and went to sleep, and when he woke up at approximately 9:30 AM he noticed that the left side of his tongue was significantly enlarged. The patient has a past medical history of hypertension, hyperlipidemia, latter cancer, metastases to the lungs, BPH, COPD. The patient was recently treated with Bactrim starting 2 days ago when a urinary tract infection was discovered after his stent removal from his right side. The patient follows with Dr. Paula for his bladder cancer, and it was recently discovered that he has metastasis to the right kidney and may require kidney removal. He also follows with Dr. Dodge for the lung metastasis, and will be undergoing a bronchoscopy on the 14 of April. The patient denies any previous history of allergic reactions to any of his current medications, or any previous history of tongue swelling. The patient has been on his lisinopril since 2008. The patient states that his tongue has not changed in size since he first noticed the swelling this morning. He also states that there is discomfort in his tongue that feels like he bit down on it. He currently denies any fever, chills, shortness of breath, difficulty breathing, difficulty swallowing, difficulty drinking, or any other acute complaints other than the acute tongue swelling. Past Medical/Surgical History Medical Problems: (1) Bladder cancer Status: Chronic (2) Essential (primary) hypertension Status: Chronic Surgical Problems: (1) History of ureter stent Status: Resolved Family History Cancer Diabetes mellitus Social History Smoking Status: Former Smoker Housing status: lives alone Allergies Coded Allergies: Iodinated Diagnostic Agents (Verified Allergy, Severe, HIVES, 03/31/17) PT REQUIRES PRE-MEDICATION Sulfamethoxazole w/Trimethoprim (Verified Allergy, Severe, TONGUE SWELLS/ FONG, 04/10/17) Lisinopril (Verified Allergy, Intermediate, Tongue Swelling, 04/10/17) Mustard (Verified Allergy, Intermediate, Hives, SOB, Itchy, 03/31/17) Adhesives (Verified Allergy, Unknown, Tape - Rash, 03/31/17) Aspirin (Verified Allergy, Unknown, ITCHY, 03/31/17) Home Medications Scheduled Acetaminophen (Tylenol), 325 MG PO PRN Ascorbic Acid (Vitamin C), 1 TAB PO QAM Atorvastatin (Lipitor), 80 MG PO QPM Budesonide/Formoterol Fumarate (Symbicort 160/4.5 Inhaler ), 2 PUFFS INH BID Cyanocobalamin (Vitamin B12 500MCG), 500 MCG PO QAM Finasteride (Proscar), 5 MG PO QAM Lisinopril (Zestril), 10 MG PO QAM Metoprolol Tartrate (Lopressor) (Lopressor), 12.5 MG PO BID Pyridoxine (Vitamin B6), 100 MG PO QAM Sulfa/Trimethoprim (Bactrim Ds 800MG/160MG), 1 TAB PO BID Terazosin Hcl (Hytrin), 2 MG PO QPM Tiotropium [place] (Spiriva [place]), 1 CAP INH QAM Scheduled PRN Albuterol Hfa (Ventolin Hfa), 1-2 PUFFS INH Q4H PRN for RN Cetirizine (Zyrtec), 10 MG PO QAM PRN for PRN Review of Systems Constitutional: + fatigue, No fever, No chills Respiratory: No cough, No shortness of breath Cardiovascular: No chest pain, No palpitations Abdomen: No pain, No nausea, No vomiting, No diarrhea Genitourinary - Male: No dysuria Neurologic: No paralysis, No weakness, No numbness/tingling Physical Exam Vital Signs Date Time Temp Pulse Resp B/P (MAP) Pulse Ox O2 Delivery O2 Flow Rate FiO2 04/10/17 17:48 76 04/10/17 17:39 80 26 128/76 92 Room Air 04/10/17 16:31 131/90 04/10/17 16:30 74 16 92 Room Air 04/10/17 16:00 78 17 142/88 94 Room Air 04/10/17 15:30 67 19 133/75 93 Room Air 04/10/17 15:00 77 19 141/91 92 Room Air 04/10/17 14:30 79 18 135/83 94 Room Air 04/10/17 14:12 93 Room Air 04/10/17 14:02 76 21 116/74 92 Room Air 04/10/17 13:55 92 Room Air 04/10/17 13:48 89 04/10/17 13:26 36.9 96 18 93/58 92 Room Air General Appearance: WD/WN, no apparent distress Head: normocephalic, atraumatic Eyes: normal inspection, PERRL, EOMI, sclerae normal ENT: pharynx normal, + pertinent finding (Patient voice unaffected, able to move tongue without difficulty, left side of tongue is moderately swollen, no change in color of the tongue, normal papillae and pink color, no trauma to the tongue, pharynx appears unobstructed, breathing unlabored) Neck: supple, no carotid bruits Respiratory/Chest: chest non-tender, lungs clear, normal breath sounds, no respiratory distress, no accessory muscle use Cardiovascular: regular rate, rhythm, no edema, no gallop Abdomen/GI: normal bowel sounds, non tender, soft Neurologic/Psych: group director experience II-XII nml as tested, no motor/sensory deficits, alert, oriented x 3 Diagnostics Laboratory Results Results Past 24 Hours Test 04/10/17 13:45 Range/Units White Blood Count 15.47 4.8-10.8 K/uL Red Blood Count 4.07 4.7-6.1 M/uL Hemoglobin 12.8 14.0-18.0 g/dL Hematocrit 38.9 42-52 % Mean Corpuscular Volume 95.6 80-100 fL Mean Corpuscular Hemoglobin 31.4 25-34 pg Mean Corpuscular Hemoglobin Concent 32.9 32-36 g/dl Platelet Count 421 130-400 K/uL Mean Platelet Volume 9.7 7.4-10.4 fL Neutrophils (%) (Auto) 71.0 % Lymphocytes (%) (Auto) 16.5 % Monocytes (%) (Auto) 6.0 % Eosinophils (%) (Auto) 2.1 % Basophils (%) (Auto) 0.3 % Neutrophils # (Auto) 10.98 1.4-6.5 K/uL Lymphocytes # (Auto) 2.56 1.2-3.4 K/uL Monocytes # (Auto) 0.93 0.11-0.59 K/uL Eosinophils # (Auto) 0.33 0-0.5 K/uL Basophils # (Auto) 0.04 0-0.2 K/uL RDW Standard Deviation 47.2 36.4-46.3 fL RDW Coefficient of Variation 13.6 11.5-14.5 % Immature Granulocyte % (Auto) 4.1 % Immature Granulocyte # (Auto) 0.63 0.00-0.02 K/uL Sodium Level 135 136-145 mmol/L Potassium Level 3.9 3.5-5.1 mmol/L Chloride Level 104 98-107 mmol/L Carbon Dioxide Level 21 21-32 mmol/L Anion Gap 10.0 3-11 mmol/L Blood Urea Nitrogen 17 7-18 mg/dl Creatinine 1.21 0.60-1.40 mg/dl Est Creatinine Clear Calc Drug Dose 66.7 ml/min Estimated GFR () 69.9 Estimated GFR (Non- 60.3 BUN/Creatinine Ratio 13.7 10-20 Random Glucose 104 70-99 mg/dl Calcium Level 9.1 8.5-10.1 mg/dl Total Bilirubin 0.1 0.2-1 mg/dl Direct Bilirubin < 0.1 0-0.2 mg/dl Aspartate Amino Transf (AST/SGOT) 21 15-37 U/L Alanine Aminotransferase (ALT/SGPT) 37 12-78 U/L Alkaline Phosphatase 101 45-117 U/L Total Protein 7.4 6.4-8.2 gm/dl Albumin 2.8 3.4-5.0 gm/dl Normal EKG Impression Assessment and Plan Patient is a 72-year-old male that presents with a 1 day history of allergic reaction with tongue swelling secondary to perceived allergic reaction 1) Allergic Reaction with tongue swelling - Improved with dose of methylprednisolone and Benadryl in the ED - Believed to be secondary to either Lisinopril or recent Bactrim use - Prednisone 40mg BID - Make sure on discharge patient provided with EpiPen - Leukocytosis of 15.47 (Recent records show chronic leukocytosis in 13 range) 2) UTI - Awaiting Urine Cultures --> Currently growing Strep but awaiting sensitivities - Holding Bactrim at this time due to concerns over allergic reaction - Keflex 500mg QID - Recent removal of stent from right kidney due to hematuria 3) HTN - Hold home Lisinopril - Resume home Lopressor - Hydralazine 20mg Q8H PRN for SBP > 180 4) Bladder Cancer - Recent PET scan evaluated due to new onset right sided head pain --> significant for enlarging lung masses that may be a primary lung neoplasm - Following with Dr. Paula and Dr. Anand - Ongoing hematuria was reason for stent removal so already holding home Plavix - Decrease in Hgb over last few days based on records from 14.6-12.8 - No anticoagulation at this time due to acute bleed 5) Hyperlipidemia - Lipitor 6) COPD - Well controlled at this time on current regimen of inhalers - Continue home Symbicort, Spiriva, and Ventolin 7) BPH - Continue home Terazosin and Proscar 8) DVT Prophylaxis -SCD 9) Code Status - Full Resuscitation Level of Care Med/Surg Advanced Directives Existing Advance Directive: No Existing Living Will: No Existing Power of Patroller: No Existing Health Care Proxy: No Resuscitation Status FULL RESUSCITATION VTE Prophylaxis VTE Risk Assessment Done? Y/N: Yes Risk Level: Moderate Given or contraindicated: SCD's Resident Tracking Resident Involvement: Resident Care Provided Care Provided: Adult Hospital Medicine
[2017-04-10] MEDS ORDERED: IV FLUIDS COMPLETED PRN (19:30)
[2017-04-10 20:46] VITALS: BP 105/66; PULSE 94; TEMP 36.4; O2SAT 93
--- NOTE | 2017-04-10 20:49 | EMERGENCY ROOM VISIT NOTE ---
History Report prepared by Gabriel: Norma Delgado Under the Supervision of: Dr. Abhinav Yanez M.D. First contact with patient: 13:53 Chief Complaint: HEADACHE Stated Complaint: SWOLLEN TONGUE HEADACHE History of Present Illness The patient is a 72 year old male who presents to the Emergency Room with complaints of an episode of a left sided headache beginning this morning. The patient states the left side of his tongue began to swell up around the same time his headache began. He reports pain with swallowing but denies any difficulty breathing. The patient has a history of renal cancer. The patient had kidney stents taken out two days ago and was put on antibiotics. He reports he has never taken these specific antibiotics before. Pt denies LOC, fevers, chills, diaphoresis, visual changes, neck pain, chest pain, breathing difficulties, nausea, vomiting, lymphadenopathy, rash, or other complaints. The patient takes Lisinopril. Source of History: patient Onset: this morning Position: head Quality: ache Timing: other (episode) Modifying Factors (Worsening): other (swallowing) Associated Symptoms: + headache Note: The patient notes left sided tongue swelling Review of Systems See HPI for pertinent positives and negatives. A total of ten systems were reviewed and were otherwise negative. Past Medical & Surgical Medical Problems: (1) Bladder cancer (2) Essential (primary) hypertension (3) Macroglossia Surgical Problems: (1) History of ureter stent Family History Cancer Diabetes mellitus Social History Smoking Status: Former Smoker Marital Status: Current/Historical Medications Scheduled Acetaminophen (Tylenol), 325 MG PO PRN Ascorbic Acid (Vitamin C), 1 TAB PO QAM Atorvastatin (Lipitor), 80 MG PO QPM Budesonide/Formoterol Fumarate (Symbicort 160/4.5 Inhaler ), 2 PUFFS INH BID Cyanocobalamin (Vitamin B12 500MCG), 500 MCG PO QAM Finasteride (Proscar), 5 MG PO QAM Lisinopril (Zestril), 10 MG PO QAM Metoprolol Tartrate (Lopressor) (Lopressor), 12.5 MG PO BID Pyridoxine (Vitamin B6), 100 MG PO QAM Sulfa/Trimethoprim (Bactrim Ds 800MG/160MG), 1 TAB PO BID Terazosin Hcl (Hytrin), 2 MG PO QPM Tiotropium Aurora (Spiriva Handihaler), 1 CAP INH QAM Scheduled PRN Albuterol Hfa (Ventolin Hfa), 1-2 PUFFS INH Q4H PRN for RN Cetirizine (Zyrtec), 10 MG PO QAM PRN for PRN Allergies Coded Allergies: Iodinated Diagnostic Agents (Verified Allergy, Severe, HIVES, 03/31/17) PT REQUIRES PRE-MEDICATION Sulfamethoxazole w/Trimethoprim (Verified Allergy, Severe, TONGUE SWELLS/ FONG, 04/10/17) Lisinopril (Verified Allergy, Intermediate, Tongue Swelling, 04/10/17) Mustard (Verified Allergy, Intermediate, Hives, SOB, Itchy, 03/31/17) Adhesives (Verified Allergy, Unknown, Tape - Rash, 03/31/17) Aspirin (Verified Allergy, Unknown, ITCHY, 03/31/17) Physical Exam Vital Signs Date Time Temp Pulse Resp B/P (MAP) Pulse Ox O2 Delivery O2 Flow Rate FiO2 04/10/17 18:01 83 15 138/75 04/10/17 17:48 76 04/10/17 17:39 80 26 128/76 92 Room Air 04/10/17 16:31 131/90 04/10/17 16:30 74 16 92 Room Air 04/10/17 16:00 78 17 142/88 94 Room Air 04/10/17 15:30 67 19 133/75 93 Room Air 04/10/17 15:00 77 19 141/91 92 Room Air 04/10/17 14:30 79 18 135/83 94 Room Air 04/10/17 14:12 93 Room Air 04/10/17 14:02 76 21 116/74 92 Room Air 04/10/17 13:55 92 Room Air 04/10/17 13:48 89 04/10/17 13:26 36.9 96 18 93/58 92 Room Air Physical Exam GENERAL: Awake, alert, well-appearing, in no distress HENT: Normocephalic, atraumatic. Left side of tongue edematous, right side of tongue appears normal, posterior oropharynx appears normal. EYES: Normal conjunctiva. Sclera non-icteric. NECK: Supple. No nuchal rigidity. FROM. No JVD. RESPIRATORY: Clear to auscultation. CARDIAC: Regular rate, normal rhythm. Extremities warm and well perfused. Pulses equal. ABDOMEN: Soft, non-distended. No tenderness to palpation. No rebound or guarding. No masses. RECTAL: Deferred. MUSCULOSKELETAL: Chest examination reveals no tenderness. The back is symmetrical on inspection without obvious abnormality. There is no CVA tenderness to palpation. No joint edema. LOWER EXTREMITIES: Calves are equal size bilaterally and non-tender. No edema. No discoloration. NEURO: Normal sensorium. No sensory or motor deficits noted. SKIN: No rash or jaundice noted. Medical Decision & Procedures Laboratory Results 04/10/17 13:45 Red Blood Count 4.07, Mean Corpuscular Volume 95.6, Mean Corpuscular Hemoglobin 31.4, Mean Corpuscular Hemoglobin Concent 32.9, Mean Platelet Volume 9.7, Neutrophils (%) (Auto) 71.0, Lymphocytes (%) (Auto) 16.5, Monocytes (%) (Auto) 6.0, Eosinophils (%) (Auto) 2.1, Basophils (%) (Auto) 0.3, Neutrophils # (Auto) 10.98, Lymphocytes # (Auto) 2.56, Monocytes # (Auto) 0.93, Eosinophils # (Auto) 0.33, Basophils # (Auto) 0.04 04/10/17 13:45 Test 04/10/17 13:45 White Blood Count 15.47 K/uL (4.8-10.8) Red Blood Count 4.07 M/uL (4.7-6.1) Hemoglobin 12.8 g/dL (14.0-18.0) Hematocrit 38.9 % (42-52) Mean Corpuscular Volume 95.6 fL (80-100) Mean Corpuscular Hemoglobin 31.4 pg (25-34) Mean Corpuscular Hemoglobin Concent 32.9 g/dl (32-36) Platelet Count 421 K/uL (130-400) Mean Platelet Volume 9.7 fL (7.4-10.4) Neutrophils (%) (Auto) 71.0 % Lymphocytes (%) (Auto) 16.5 % Monocytes (%) (Auto) 6.0 % Eosinophils (%) (Auto) 2.1 % Basophils (%) (Auto) 0.3 % Neutrophils # (Auto) 10.98 K/uL (1.4-6.5) Lymphocytes # (Auto) 2.56 K/uL (1.2-3.4) Monocytes # (Auto) 0.93 K/uL (0.11-0.59) Eosinophils # (Auto) 0.33 K/uL (0-0.5) Basophils # (Auto) 0.04 K/uL (0-0.2) RDW Standard Deviation 47.2 fL (36.4-46.3) RDW Coefficient of Variation 13.6 % (11.5-14.5) Immature Granulocyte % (Auto) 4.1 % Immature Granulocyte # (Auto) 0.63 K/uL (0.00-0.02) Anion Gap 10.0 mmol/L (3-11) Est Creatinine Clear Calc Drug Dose 66.7 ml/min Estimated GFR () 69.9 Estimated GFR (Non- 60.3 BUN/Creatinine Ratio 13.7 (10-20) Calcium Level 9.1 mg/dl (8.5-10.1) Total Bilirubin 0.1 mg/dl (0.2-1) Direct Bilirubin < 0.1 mg/dl (0-0.2) Aspartate Amino Transf (AST/SGOT) 21 U/L (15-37) Alanine Aminotransferase (ALT/SGPT) 37 U/L (12-78) Alkaline Phosphatase 101 U/L (45-117) Total Protein 7.4 gm/dl (6.4-8.2) Albumin 2.8 gm/dl (3.4-5.0) Laboratory results reviewed by me Medications Administered Medications (Trade) Dose Ordered Sig/Mckenna Route Start Time Stop Time Status Last Admin Dose Admin Methylprednisolone Sodium Succinate (Solu-Medrol IV) 125 mg NOW STAT IV 04/10/17 14:00 04/10/17 14:02 DC 04/10/17 14:10 125 MG Diphenhydramine HCl (Benadryl Inj) 25 mg NOW STAT IV 04/10/17 14:00 04/10/17 14:02 DC 04/10/17 14:10 25 MG Famotidine (Pepcid 20mg Iv Push) 20 mg ONE STAT IV 04/10/17 14:00 04/10/17 14:02 DC 04/10/17 14:10 20 MG ECG Indication: other (headache) Rate (beats per minute): 80 Rhythm: normal sinus Findings: no ectopy, other (early repolarization) Comparison ECG Date: 11/17/16 Change: Early repolarization more present in new. ED Course 1356: The patient was evaluated in room A11A. A complete history and physical exam was performed. 1400: Ordered Famotidine 20 mg IV, Benadryl Inj 25 mg IV, Solu-Medrol IV 125 mg IV. 1553: The patient is feeling better but still has swelling to his left tongue. 1637: The patient's tongue is still swollen. 1705: Discussed the patient's case Dr. Singh. The patient will be evaluated for further treatment and disposition. Medical Decision Triage Nursing notes reviewed. The patient's presentation and history were concerning for tongue swelling. Etiologies such as injury edema, allergic reaction, metabolic, infection, toxicologic, airway issues, as well as others were entertained. The patient was evaluated. He had what appeared to be angioedema of the left side of his tongue and floor of the mouth. There was no gum issues or lip swelling. His posterior oropharynx and airway appeared normal. The patient was recently started on Bactrim but has been on lisinopril for many years. He notes no prior history of the same. He was treated with IV Solu-Medrol, Pepcid , and Benadryl. On reassessment he was doing well as far symptoms however his swelling was about the same. He was noted to have a mild leukocytosis. Chemistries unremarkable. The patient was observed for an extended period and due to the left-sided oral edema he will need to be observed in the hospital in order to monitor his airway closely. I did discuss the case with the patient as well as the hospitalist service. The patient was evaluated in the Emergency Room for further management. Blood Pressure Screening Patient's blood pressure: Elevated blood pressure Blood pressure disposition: Referred to PCP (evaluated by hospitalist) Consults Time Called: 1704 Consulting Physician: Dr. Singh Returned Call: [phone] Discussed the patient's case Dr. Singh. The patient will be evaluated for further treatment and disposition. Impression Primary Impression: Angioedema Scribe Attestation The scribe's documentation has been prepared under my direction and personally reviewed by me in its entirety. I confirm that the note above accurately reflects all work, treatment, procedures, and medical decision making performed by me. Departure Information Dispostion Being Evaluated By Hospitalist Referrals Kathy Del Cid (PCP) Patient Instructions My [facility]
[2017-04-10] MEDS ORDERED: ENOXAPARIN 30 MG/0.3 ML SYR SQ SCH (21:00)
[2017-04-10] MEDS ORDERED: ATORVASTATIN 40 MG TAB PO SCH (21:00)
[2017-04-10] MEDS: BUDESONIDE/FORMOTEROL FUMARATE 160/4.5 60 PUFFS/INHALER INH SCH (21:55)
[2017-04-10] MEDS: CEPHALEXIN MONOHYDRATE 500 MG CAP PO SCH (21:56)
[2017-04-10] MEDS: METOPROLOL TARTRATE 25 MG TAB PO SCH (21:59)
[2017-04-10 23:19] VITALS: BP 104/65; PULSE 91; TEMP 36.3; O2SAT 95
[2017-04-11 02:16] VITALS: BP 104/65; PULSE 91; TEMP 36.3; Ht 170.2 cm; Wt 108.4 kg
[2017-04-11 07:22] VITALS: BP 118/69; PULSE 90; TEMP 36.3; O2SAT 93
[2017-04-11] MEDS: METOPROLOL TARTRATE 25 MG TAB PO SCH (07:52)
[2017-04-11] MEDS: CEPHALEXIN MONOHYDRATE 500 MG CAP PO SCH ×2 (07:54→11:41)
[2017-04-11] MEDS: BUDESONIDE/FORMOTEROL FUMARATE 160/4.5 60 PUFFS/INHALER INH SCH (07:55)
[2017-04-11 08:00] VITALS: O2SAT 93
[2017-04-11] MEDS ORDERED: PYRIDOXINE HCL 50 MG TAB PO SCH (08:00)
[2017-04-11] MEDS ORDERED: CYANOCOBALAMIN 500 MCG TAB (VIT B-12) PO SCH (08:00)
[2017-04-11] MEDS ORDERED: TIOTROPIUM BROMIDE 5 PUFF/90 MCG INH INH SCH (08:00)
[2017-04-11] MEDS ORDERED: FINASTERIDE 5 MG TAB PO SCH (08:00)
[2017-04-11 09:28] LABS: BASO ABS # 0.01 K/uL (0-0.2); COMPLETE YES; IG% 2.1 %; LYMPH % 6.8 %; LYMPH ABS # 1.38 K/uL (1.2-3.4); MEAN CELL VOLUME 94.4 fL (80-100); MEAN CORPUSCULAR HEMOGLOBIN 31.7 pg (25-34); MEAN CORPUSCULAR HGB CONC 33.6 g/dl (32-36); MEAN PLATELET VOLUME 10.1 fL (7.4-10.4); MONO % 1.3 %; NEUT % 89.8 %; PLATELET COUNT 337 K/uL (130-400); RED BLOOD COUNT 4.13 M/uL (4.7-6.1); WHITE BLOOD COUNT 20.44 K/uL (4.8-10.8)
[2017-04-11] MEDS ORDERED: KFL500 PO (11:35)
--- NOTE | 2017-04-11 11:42 | Discharge Instructions ---
Discharge Instructions Date of Service Apr 11, 2017. Admission Reason for Admission: Macroglossia Discharge Discharge Diagnosis / Problem: Allergic Reaction Discharge Goals Goal(s): Decrease discomfort, Therapeutic intervention Activity Recommendations Activity Limitations: resume your previous activity Lifting Limitations: none Exercise/Sports Limitations: none Shower/Bathe: no limitations Driving or Machine Use: no limitations . Instructions / Follow-Up Instructions / Follow-Up You were treated in the hospital for a presumed allergic reaction that resulted in an enlarged tongue and discomfort to the tongue. The 2 medications that we are concerned to have cause the allergy are Lisinopril (Zesteril) and Bactrim. Both of these medications have caused these symptoms so we plan to have you stop taking them. Your symptoms completely resolved in the hospital after treatment with steroids and Benadryl. We will change the antibiotic you are taking to Cephalexin that you will take for another 5 days. Medications: - STOP TAKING Bactrim and Lisinopril (Zesteril) - Take Cephalexin 500mg tablet - 1 tablet by mouth four times per day - This is an antibiotic for your urinary tract infection Follow Ups: - Please follow up with your primary care doctor in 2-3 days for follow up and blood pressure check If you present with any concerning symptoms including difficulty breath, difficulty swallowing, worsening tongue enlargement or pain, rash, or any other symptoms concerning for worsening fo your condition or allergic reaction please return to the hospital or be evaluated by a doctor immediately. Current Hospital Diet Patient's current hospital diet: Regular Diet Discharge Diet Recommended Diet: AHA Diet (Heart Healthy) Pending Studies Studies pending at discharge: no Medical Emergencies . Who to Call and When: Medical Emergencies: If at any time you feel your situation is an emergency, please call 911 immediately. . Non-Emergent Contact Non-Emergency issues call your: Primary Care Provider . . "Provider Documentation" section prepared by Vinayak Chan. . VTE Core Measure Inpt VTE Proph given/why not?: SCD's Resident Tracking Resident Involvement: Resident Care Provided Care Provided: Adult Hospital Medicine
[2017-04-11 11:47] VITALS: BP 118/69; PULSE 90; TEMP 36.3; O2SAT 93
--- NOTE | 2017-04-11 16:22 | Discharge Summary ---
Discharge Summary Date of Service Apr 11, 2017. (Vinayak Chan MD) Discharge Summary Admission Date: Apr 10, 2017 at 18:26 Discharge Date: Apr 11, 2017 Discharge Disposition: Home Principal Diagnosis: acute allergic reaction Problems/Secondary Diagnoses: Macroglossia, UTI, bladder cancer, hypertension (Vinayak Chan MD) Medication Reconciliation New Medications: Cephalexin Monohydrate (Cephalexin) 500 Mg Cap 500 MG PO QID for 5 Days, #20 CAP Continued Medications: Acetaminophen (Tylenol) 325 Mg Tab 325 MG PO PRN, TAB Albuterol Hfa (Ventolin Hfa) 200 Puffs/31689 Mcg Aers 1-2 PUFFS INH Q4H PRN for RN, #1 INHALER Ascorbic Acid (Vitamin C) 1,000 Mg Tab 1 TAB PO QAM Atorvastatin (Lipitor) 80 Mg Tab 80 MG PO QPM, TAB Budesonide/Formoterol Fumarate (Symbicort 160/4.5 Inhaler ) Aero 2 PUFFS INH BID, INHALER Cetirizine (Zyrtec) 10 Mg Tab 10 MG PO QAM PRN for PRN, TAB Cyanocobalamin (Vitamin B12 500MCG) 500 Mcg Tab 500 MCG PO QAM, TAB Finasteride (Proscar) 5 Mg Tab 5 MG PO QAM, TAB Metoprolol Tartrate (Lopressor) (Lopressor) 25 Mg Tab 12.5 MG PO BID, TAB Pyridoxine (Vitamin B6) 100 Mg Tab 100 MG PO QAM, TAB Terazosin Hcl (Hytrin) 2 Mg Cap 2 MG PO QPM, CAP Tiotropium Success (Spiriva Handihaler) 30 Puff/540 Mcg Aerp 1 CAP INH QAM Discontinued Medications: Lisinopril (Zestril) 10 Mg Tab 10 MG PO QAM, TAB Sulfa/Trimethoprim (Bactrim Ds 800MG/160MG) Tab 1 TAB PO BID, #6 TAB Discharge Exam Review of Systems: Constitutional: No fever, No chills, No sweats, No weight loss Eyes: No eye pain, No redness ENT: No sore throat, No trouble swallowing Respiratory: No cough, No wheezing, No shortness of breath Abdomen: No pain, No nausea, No vomiting, No diarrhea Musculoskeletal: No muscle pain, No swelling Neurologic: No numbness/tingling Integumentary: No rash, No new/changing skin lesions Physical Exam: General Appearance: WD/WN, no apparent distress Eyes: normal inspection, sclerae normal ENT: normal ENT inspection, pharynx normal, + pertinent finding (normal papillae over the tongue, light pink color of the tongue. No macroglossia visualized with good inspection of the pharynx.) Neck: supple Respiratory/Chest: chest non-tender, lungs clear, normal breath sounds Cardiovascular: regular rate, rhythm, no edema, no gallop Abdomen / GI: normal bowel sounds, non tender, soft Neurologic/Psychiatric: alert, normal mood/affect, oriented x 3 Skin: no rash (Vinayak Chan MD) Hospital Course The patient is a 72-year-old male that presents with a one-day history of tongue swelling believed to be due to medications. The patient was taking Bactrim that was prescribed 2 days prior for a UTI that was described erred on urine culture. The patient is also taking lisinopril, and despite its prolonged used has been known to cause similar symptoms. For this reason both of the Bactrim and the lisinopril were held in ED. The patient was also given IV Benadryl and methylprednisolone that caused minor improvement in the size of his tongue and therefore was admitted to the hospital. The patient denied any other acute complaints at that time including rash, wheezing, shortness of breath, abdominal pain, difficulty swallowing, or any other acute complaints. The patient was also started on 40 mg of prednisone by mouth daily. Overnight the patient experienced no other acute events. This morning the patient woke up and stated that he would no longer had any tongue swelling and was at his baseline. We changed the patient's medication to Keflex 500 mg 4 times a day that he will complete for his urinary tract infection for a total of 7 days of antibiotic treatment. At the some we will also hold the patient's lisinopril, although his blood pressure has been stable and we will not start another blood pressure medication on discharge. We encourage the patient to follow-up with his PCP in the next 2-3 days in order to recheck his blood pressure and consider starting another blood pressure medication. Total Time Spent: Greater than 30 minutes This includes examination of the patient, discharge planning, medication reconciliation, and communication with other providers. (Vinayak Chan MD) I agree with resident assessment and plan and have seen and examined pt myself VSS Labs reviewed Pt allergic rxn, unknown if related to lisinopril or bactrim UTI - switch to keflex No worsening sob, tongue swelling OK to DC (Ang Holden D.O.) Discharge Instructions Please refer to the electronic Patient Visit Report (Discharge Instructions) for additional information. (Vinayak Chan MD) Additional Copies To Kathy Del Cid Resident Tracking Resident Involvement: Resident Care Provided Care Provided: Adult Hospital Medicine (Vinayak Chan MD)
== END 2017-04-11 13:23 | disposition home or self-care (01) ==
LOC: C.EDB 13:23 → C.4E 18:26 → ENRESERV 19:00
PROVIDERS: ADMIT Student in an Organized Health Care Education/Training Program; ATTEND Hospitalist
DX: T78.3XXA Angioneurotic edema, initial encounter (principal); I10 Essential (primary) hypertension; Q38.2 Macroglossia; N39.0 Urinary tract infection, site not specified; C67.9 Malignant neoplasm of bladder, unspecified; Z87.891 Personal history of nicotine dependence; Z79.899 Other long term (current) drug therapy; X58.XXXA Exposure to other specified factors, initial encounter

== ENCOUNTER 2017-04-14 04:59 | Day surgery (SDC) | payer OTHER ==
[2017-03-31 08:18] VITALS: BMI 38.0
[~2017-04-14] VITALS: Ht 170.2 cm; Wt 112.2 kg
[~2017-04-14 04:59] MED LIST changes: +KFL500 PO; -LISI-461 PO
[2017-04-14 05:38] VITALS: BMI 38.0
[2017-04-14 05:39] VITALS: BP 141/80; PULSE 83; TEMP 36.7; O2SAT 96; Ht 170.2 cm; Wt 112.2 kg
[2017-04-14] MEDS ORDERED: LACTATED RINGER'S 1000ML 1,000 ML IV SCH (06:00)
[2017-04-14] MEDS ORDERED: LIDOCAINE HCL 2% 2 ML VIAL (20MG/ML) ONE (06:52)
[2017-04-14] MEDS ORDERED: GLYCOPYRROLATE INJ 0.2 MG/ML VIAL ONE (06:52)
[2017-04-14] MEDS ORDERED: DEXAMETHASONE SOD INJ 4 MG/ML VIAL ONE (06:52)
[2017-04-14] MEDS ORDERED: ONDANSETRON INJ 2 MG/ML 2 ML VIAL ONE (06:52)
[2017-04-14] MEDS ORDERED: PROPOFOL IV EMULSION 10 MG/ML 20 ML VIAL IV ONE (06:52)
[2017-04-14] MEDS ORDERED: MIDAZOLAM HCL 1 MG/ML 2ML VIAL ONE (06:52)
[2017-04-14] MEDS ORDERED: NEOSTIGMINE METHYLSULFATE 5 MG/5 ML SYR ONE (06:52)
[2017-04-14] MEDS ORDERED: FENTANYL CITRATE INJ 50 MCG/1 ML 2 ML VIAL ONE (06:52)
--- NOTE | 2017-04-14 07:02 | History and Physical ---
History & Physical Date of Service Apr 14, 2017. History & Physical Reason for visit: EBUS w/ENB History of present illness: Patient is a 72-year-old male presenting to the hospital today for EBUS w/ENB. The patient initially saw Dr. Dodge as an outpatient for concerns of a lung mass. The patient follows with Dr. Paula for bladder cancer. He moved back from [place] to [place] in 2014 to be with his family. The patient recently had a TURBTby Dr. 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 When the patient lived in [place], he had instillation of BCG into the bladder for presumptively carcinoma in situ. He also underwent percutaneous needle biopsy of a lesion of the lung and developed a pneumothorax requiring closed tube thoracostomy at that time. Neoplasm was not discovered at that time. 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 At that time, he also had a chest x-ray which suggested a mass in July 2015. Patient followed up with a puncher in [place] who prescribed him Symbicort, but did not comment on the lung mass. He had no further workup at that time. More recently, the patient was recommended to have a CT scan of the chest and pulmonary evaluation for concerns of possible lung mass. It is uncertain at this time whether the patient has metastatic disease to his lungs from his bladder carcinoma or lung primary disease. The patient does have history of long standing tobacco smoking. He continues to smoke approximately 1 and half packs per day. When he was younger, he smoked 2-1/2 to [address] scan of the chest on 03/16/2017 was reviewed and showed signs of advanced emphysema. Calcified granulomas were noted with enlarged mediastinal lymph nodes as there were PET avid on 07/18/2015 no airspace consolidation or pleural effusion was seen and comparison from 07/18/2015 the superior segment right lower lobe shows a mass measuring 4.5 x 2.9 centimeters(previously 2.3 x 1.5 centimeters on 07/18/2015) and a lesion in the lingula now measuring 3.4 x 2.6 centimeters(previously measuring 2.1 x 2 centimeters) 3 millimeter pulmonary nodule at the left lower lobe and secretions in the trachea were noted. There are numerous subcentimeter prominent mediastinal lymph nodes. The largest measures 10 millimeters in the AP window. The PET scan from July of 2015 showed that the right lower lobe nodule/mass was markedly FDG avid in the lingular nodule was moderately FDG avid. The mediastinal lymph nodes were mildly FDG avid. PFTs on 03/06/2016 revealed a forced vital capacity 4.27 liters or 107 percent of predicted with an FEV1 of 0.92 liters with 34 percent of predicted with a ratio of 22 percent there was a good response to bronchodilator. Marked reduction in diffusion capacity noted. The patient does also have history of a was felt to be a left occipital stroke on 07/11/2009 at which time he was started on Plavix 75 mg p.o. daily. Past medical history: Bladder cancer metastasized to pelvic region, BPH, COPD, elevated PSA, hyperlipidemia, hypertension, lung mass, obesity, UTI, stroke Past surgical history: Bladder surgery, hand surgery, hernia repair, prostate biopsy Family Hx: Cardiac disorder, hypertension, diabetes, malignant neoplasm of the kidney, basal cell carcinoma, lung cancer, leukemia Social history: Alcohol use, current every day smoker, , retired Allergies: Aspirin, ionized contrast Current medications: Albuterol nebulizer p.r.n., ampicillin 500 mg, atorvastatin 80 mg, cetirizine 10 mg, finasteride 5 mg, lisinopril 10 mg, metoprolol 25 mg, Spiriva 1.25, Symbicort 160/4.5, terazosin 2 mg, vitamin-B, vitamin-C, vitamin B6 Physical exam: General: Patient is awake, alert, cooperative, and in no acute distress. Head: Normocephalic, Atraumatic. ENT: PERRLA, No discharge, EOMI, Sclera normal Neck: Normal ROM. Trachea midline. No stridor Respiratory: No respiratory distress. No accessory muscle use. Cardiovascular: Regular rate and rhythm. Extremities: Normal ROM Neuro: Alert, Oriented x 3. CN II-XII grossly intact. Sensation and motor function grossly intact. Psych: Mood and affect are normal. Assessment and plan: Multiple lung masses, metastatic bladder cancer Plan for evaluation with EBUS w/ENB to diagnose whether this is metastatic bladder cancer or primary bronchogenic carcinoma.
[2017-04-14] MEDS ORDERED: FENTANYL CITRATE INJ 50 MCG/1 ML 2 ML VIAL IV PRN (08:30)
[2017-04-14] MEDS ORDERED: EpHEDrine SULFATE INJ 50 MG/ML AMP IV PRN (08:30)
[2017-04-14] MEDS ORDERED: ATROPINE SULFATE 0.1 MG/ML 5ML SYR IV PRN (08:30)
[2017-04-14] MEDS ORDERED: ONDANSETRON INJ 2 MG/ML 2 ML VIAL IV PRN (08:30)
[2017-04-14] MEDS ORDERED: ROCURONIUM BROMIDE 10 MG/ML 5 ML VIAL IV ONE (08:31)
--- NOTE | 2017-04-14 09:26 | Bronchoscopy Procedure Note ---
Bronchoscopy Procedure Note Procedure: Flexible-Bronchoscopy, EBUS, ENB, FNA, Tbbx, Cytology Brushing, BAL Consent: Obtained through the patient placed into the chart Pre-Procedural Dx: RLL mass & Lingular nodule Post-Procedural Dx: RLL mass & Lingular nodule (NSCLCa) Analgesia: GETA Sedation: GETA Procedure: The Olympus video bronchoscope and EBUS scope were used for this procedure Initially the flexible bronchoscope was used for evaluation of the airways. The ET tube was notably 4cm above the level of the uma. Trachea: Visualized portion of the trachea was anatomically within normal limits Uma: Anatomically within normal limits Right bronchial tree: Right mainstem bronchus: Anatomically within normal limits Right upper lobe: Anatomically within normal limits Bronchus intermedius: Anatomically within normal limits Right middle lobe: Anatomically within normal limits Right lower lobe: Anatomically within normal limits Findings: No significant findings noted Left bronchial tree: Left mainstem bronchus: Anatomically within normal limits Left upper lobe: Anatomically within normal limits Lingula: Anatomically within normal limits Left lower lobe: Anatomically within normal limits Findings: No significant findings noted EBUS/SHYAM: FNA Good Stations: 7: # of passes 3 11R: # of passes 4 12L: # of passes ENB: RLL (RB6): FNA, Tbbx, Cytology brushing, BAL Lingula : FNA, Tbbx, BAL EBL: none Complications: None Follow-up: PACU
--- NOTE | 2017-04-14 09:27 | DIAGNOSTIC IMAGING REPORT ---
CHEST 1 VIEW FRONTAL HISTORY: 72 years-old Male NAVIGATIONAL BRONCH pulmonary nodules COMPARISON: PET CT 04/06/2017 TECHNIQUE: 2 spot fluoroscopic images of the chest were obtained during navigational bronchoscopy utilizing 479.1 seconds fluoroscopy time FINDINGS: First image demonstrates a bronchoscope within the region of the right mainstem bronchus with catheter sheath extending into the right upper lobe bronchus. Second image demonstrates a bronchoscope in the left mainstem bronchus with distal catheter sheath within the distribution of the inferior segment lingula. IMPRESSION: Fluoroscopic assistance as above. Please see procedural report for further details. The above report was generated using voice recognition software. It may contain grammatical, syntax or spelling errors. Electronically signed by: Mauricio Andre M.D. 04/14/2017 9:25 AM Dictated Date/Time: 04/14/2017 9:23 AM
--- NOTE | 2017-04-14 09:52 | Anesthesiology Progress Note ---
Anesthesia Post Op Note Date & Time Apr 14, 2017 at 09:51 Vital Signs Pain Intensity: 0 Vital Signs Past 12 Hours Date Time Temp Pulse Resp B/P (MAP) Pulse Ox O2 Delivery O2 Flow Rate FiO2 04/14/17 09:40 81 17 148/80 100 Oxymask 10 04/14/17 09:32 36.5 95 16 180/79 98 Oxymask 10 04/14/17 05:39 36.7 83 24 141/80 (100) 96 Room Air Notes Mental Status: alert / awake / arousable, participated in evaluation Pt Amnestic to Procedure: Yes Nausea / Vomiting: adequately controlled Pain: adequately controlled Airway Patency, RR, SpO2: stable & adequate BP & HR: stable & adequate Hydration State: stable & adequate Anesthetic Complications: no major complications apparent
--- NOTE | 2017-04-14 10:03 | DIAGNOSTIC IMAGING REPORT ---
CHEST ONE VIEW PORTABLE HISTORY: Status post bronchoscopy. Lung mass. COMPARISON: Chest CT 03/16/2017. FINDINGS: No pneumothorax. No pleural effusions. Left basilar linear densities favor scarring or atelectasis. The heart is normal in size. Old, healed bilateral rib fractures. Emphysema. Calcified granuloma within the right midlung zone. Bilateral lower lobe pulmonary masses are again noted. IMPRESSION: 1. No pneumothorax. 2. Bilateral lower lobe pulmonary masses are again noted. 3. Emphysema. Electronically signed by: Cameron Lee M.D. 04/14/2017 10:01 AM Dictated Date/Time: 04/14/2017 9:59 AM
[2017-04-14 10:15] VITALS: BP 175/82; PULSE 77; TEMP 36.5; O2SAT 96
--- NOTE | 2017-04-14 10:21 | Discharge Instructions ---
Discharge Instructions Date of Service Apr 14, 2017. Admission Reason for Admission: Lung Mass Discharge Discharge Diagnosis / Problem: Lung mass in the right lower lobe and a lung nodule in the Lingula Discharge Goals Goal(s): Diagnostic testing Activity Recommendations Activity Limitations: resume your previous activity . Instructions / Follow-Up Instructions / Follow-Up With the [facility] Current Hospital Diet Patient's current hospital diet: Regular Diet Discharge Diet Recommended Diet: Regular Diet Procedures Procedures Performed: Flexible Bronchoscopy Endobronchial ultrasound, Electronavigational bronchoscopy, Trans-Tracheal/bronchial Needle Aspiratin, Transbronchial Forcep-Biopsy, Bronchial Lavage, Cytology Brushing, Flouroscopy Pending Studies Studies pending at discharge: no Medical Emergencies . Who to Call and When: Medical Emergencies: If at any time you feel your situation is an emergency, please call 911 immediately. . Non-Emergent Contact Non-Emergency issues call your: Reservoir Caretaker . . "Provider Documentation" section prepared by Jayro Obrien. . VTE Core Measure Inpt VTE Proph given/why not?: Other Anticoagulation
[2017-04-14 10:43] VITALS: BP 175/82; PULSE 75; O2SAT 95
[2017-04-14 11:15] VITALS: BP 162/80; PULSE 76; TEMP 36.3; O2SAT 95
== END 2017-04-14 11:19 | disposition home or self-care (01) ==
LOC: C.ACU 04:59
PROVIDERS: ATTEND Internal Medicine Critical Care Medicine
DX: C34.12 Malignant neoplasm of upper lobe, left bronchus or lung (principal); I10 Essential (primary) hypertension; E78.5 Hyperlipidemia, unspecified; J44.9 Chronic obstructive pulmonary disease, unspecified; C67.9 Malignant neoplasm of bladder, unspecified; N40.0 Benign prostatic hyperplasia without lower urinary tract symptoms; E66.9 Obesity, unspecified; F17.200 Nicotine dependence, unspecified, uncomplicated; Z86.73 Personal history of transient ischemic attack (TIA), and cerebral infarction without residual deficits; Z87.440 Personal history of urinary (tract) infections; Z79.899 Other long term (current) drug therapy

== ENCOUNTER → 2017-04-22 | Outpatient (CLI) | payer OTHER ==
[~2017-04-22] MED LIST changes: -KFL500 PO
== END | disposition home or self-care (01) ==
LOC: C.LABSPEC 17:03
PROVIDERS: ATTEND Urology
DX: C67.9 Malignant neoplasm of bladder, unspecified (principal); N39.0 Urinary tract infection, site not specified

== ENCOUNTER → 2017-06-04 | Outpatient (CLI) | payer OTHER | END | disposition home or self-care (01) | LOC: C.LABSPEC 17:07 | DX: R31.9 Hematuria, unspecified (principal) ==

== ENCOUNTER → 2017-06-11 | Outpatient (CLI) | payer OTHER ==
--- NOTE | 2017-06-12 11:54 | PULMONARY FUNCTION TEST ---
Pre-bronchodilator spirometry reveals a severe obstructive ventilatory defect. There was an excellent response to bronchodilator suggesting a reversible airways component. Lung volumes demonstrate evidence for significant hyperinflation and air trapping. Diffusion capacity was significantly reduced. Clinical correlation is needed.
== END | disposition home or self-care (01) ==
LOC: C.RC 10:41
PROVIDERS: ATTEND Internal Medicine Pulmonary Disease
DX: R91.8 Other nonspecific abnormal finding of lung field (principal)

== ENCOUNTER 2017-06-25 08:40 | Day surgery (SDC) | payer OTHER ==
[2017-06-23 08:21] VITALS: BMI 38.0
[~2017-06-25] VITALS: Ht 170.2 cm; Wt 110.5 kg
[~2017-06-25 08:40] MED LIST changes: +BCTCR/30 EXT; +CEFAZOLIN 2000MG IV PUSH 15 ML IV SCH; +CLOP1TAB15 PO; +LACTATED RINGER'S 1000ML 1,000 ML IV SCH
[2017-06-25] MEDS ORDERED: BUPIVACAINE 0.5 % 5 MG/1 ML MPF 30ML VIAL ONE (08:52)
[2017-06-25] MEDS ORDERED: HEPARIN SOD (PORCINE) 1000 UNIT/ML 10 ML VIAL ONE (08:53)
[2017-06-25 09:21] VITALS: BP_SYST 70; PULSE 67; TEMP 36.4; O2SAT 94; Ht 170.2 cm; Wt 110.5 kg
[2017-06-25 09:39] LABS: PTT PATIENT 23.3 SECONDS (21.0-31.0)
[2017-06-25] MEDS ORDERED: FENTANYL CITRATE INJ 50 MCG/1 ML 2 ML VIAL ONE (09:39)
[2017-06-25] MEDS ORDERED: MIDAZOLAM HCL 1 MG/ML 2ML VIAL ONE (09:39)
--- NOTE | 2017-06-25 09:59 | History & Physical Bridge Note ---
H&P Re-Evaluation Bridge Note: I have examined the patient, reviewed the History & Physical and in the interval since the performance of the History & Physical I have noted the following changes of clinical significance: Plan for placement of mediport with fluoroscopy, also known as port placement. coags normal, No other changes noted
[2017-06-25] MEDS ORDERED: PROPOFOL IV EMULSION 10 MG/ML 20 ML VIAL IV ONE (10:43)
[2017-06-25] MEDS ORDERED: LIDOCAINE HCL 2% 2 ML VIAL (20MG/ML) ONE (10:43)
[2017-06-25] MEDS ORDERED: KETOROLAC TROMETHAMINE 30 MG/ML VIAL ONE (10:43)
--- NOTE | 2017-06-25 10:56 | [facility] Post Operative Brief Note ---
Immediate Operative Summary Operative Date Jun 25, 2017. Pre-Operative Diagnosis needed for IV access use, cancer Post-Operative Diagnosis needed for IV access use, cancer Procedure(s) Performed Insertion of Mediport with Fluoroscopy Left Internal Jugular Vein Surgeon Dr. Domenico Lindsay Leather Colorer Surgeon(s) Carissa Barraza PA-C Estimated Blood Loss 4ml Findings Consistent with Post-Op Diagnosis LIJ, good placement on fluoroscopy Specimens no specimens as per surgeon Drains None Anesthesia Type MAC Complication(s) none Disposition Accompanied Pt To Recover: no Disposition: Recovery Room / PACU
[2017-06-25] MEDS ORDERED: SODIUM CHLORIDE 0.9% 1000ML 1,000 ML IV SCH (11:03)
--- NOTE | 2017-06-25 11:07 | [facility] Operative Report ---
Operative Report Operative Date Jun 25, 2017. Pre-Operative Diagnosis needed for IV access use, cancer Post-Operative Diagnosis same Procedure(s) Performed Insertion of Left internal jugular vein port with fluoroscopy Surgeon Dr. Domenico Lindsay Bindery Operator Surgeon(s) Carissa Barraza PA-C Estimated Blood Loss 4ml Findings Left internal jugular vein accessed on first attempt using real-time ultrasound guidance. Left internal jugular vein power port placed, good placement on fluoroscopy. Draws and flushes easily. Specimens no specimens as per surgeon Drains none Anesthesia MAC/local Complication(s) None Disposition Recovery Room / PACU Indications 72-year-old male with bladder and lung cancer, he has need for permanent IV access for chemotherapy. Plan for insertion of Mediport with fluoroscopy. The risks of the procedure were discussed, all questions were answered, and the patient agreed to proceed with surgery as planned. Description of Procedure The patient was properly identified, consented, and taken to the operating room where he was placed in the supine position with both arms tucked and a shoulder roll placed vertically. Monitored anesthesia care was induced. SCDs and a safety belt were placed. Preoperative antibiotics were administered. The patient's chest and neck was prepped and draped in the standard sterile fashion. Surgical timeout was performed and all parties were in agreement that this was the correct patient and procedure to be performed and we continued as planned. The patient was placed in Trendelenburg position. Local anesthetic was injected along the skin incision. Using real-time ultrasound guidance, the left internal jugular vein was accessed on the first attempt using the access needle. The wire was placed the needle was removed. Fluoroscopy confirmed placement into the subclavian vein extending into the superior vena cava. A transverse skin incision was made in the left chest and a pocket was created for the port. The tunneling device was used to bring the catheter through the chest incision and into the neck incision. The dilator and peel-away sheath were inserted over the wire. The catheter was then inserted through the peel- away sheath and fluoroscopy confirmed placement into the superior vena cava. The catheter was cut at the 14 cm nahum and attached to the port. The port was secured into place with 3-0 Prolene sutures. A final fluoroscopic image revealed good placement of the port. The wound was irrigated and hemostasis was confirmed. The skin was closed with interrupted 3-0 Vicryl deep dermal sutures, followed by 4-0 Monocryl running subcuticular suture. Dermabond was placed over the wounds. The port was accessed and hilary blood easily and flushed easily. It was flushed with heparinized saline. The patient taken to the PACU where he recovered without apparent incident. All sponge, instrument and needle counts were correct at the conclusion of the procedure. The patient tolerated the procedure well. The physician's compounding assistant was present and scrubbed for the entire case. She was essential in positioning the patient, prepping and draping, retraction and exposure, closure of the skin, and placement of the dressings. I attest to the content of the Intraoperative Record and any orders documented therein. Any exceptions are noted below.
[2017-06-25] MEDS ORDERED: OXYC-57 PO (11:10)
--- NOTE | 2017-06-25 11:13 | Discharge Instructions ---
Discharge Instructions Date of Service Jun 25, 2017. Admission Reason for Admission: Bladder Cancer, Bronchogenic Cancer Discharge Discharge Diagnosis / Problem: Bladder Cancer, Bronchogenic Cancer Discharge Goals Goal(s): Decrease discomfort, Improve function Activity Recommendations Activity Limitations: as noted below Lifting Limitations: no more than 10 pounds Exercise/Sports Limitations: until after follow-up appointment May Resume Sexual Activity: after follow-up appointment Shower/Bathe: tomorrow Driving or Machine Use: resume 1 day after discharge . Instructions / Follow-Up Instructions / Follow-Up Please follow-up with Dr. Lindsay in 1-2 weeks for wound check. Please call the office at [phone] to make an appointment if you do not have one already. Please call the office with any questions or concerns. Current Hospital Diet Patient's current hospital diet: Discharge Diet Recommended Diet: Regular Diet Procedures Procedures Performed: Insertion of Mediport with Fluoroscopy Left Internal Jugular Vein Pending Studies Studies pending at discharge: no Medical Emergencies . Who to Call and When: Medical Emergencies: If at any time you feel your situation is an emergency, please call 911 immediately. . Non-Emergent Contact Non-Emergency issues call your: Primary Care Provider, Surgeon Call Non-Emergent contact if: temperature is above 101.5, your pain is not controlled, wound has increased drainage, wound has increased redness . "Provider Documentation" section prepared by Carissa Barraza. . VTE Core Measure Inpt VTE Proph given/why not?: SCD's [place] Drug Monitoring Program Search Results: patient reviewed within database, no issues identified
[2017-06-25] MEDS ORDERED: ONDANSETRON INJ 2 MG/ML 2 ML VIAL IV PRN ×2 (11:15→11:30)
[2017-06-25] MEDS ORDERED: OXYCODONE/ACETAMINOPHEN 5-325 TAB PO PRN ×2 (11:15)
--- NOTE | 2017-06-25 11:29 | DIAGNOSTIC IMAGING REPORT ---
CHEST ONE VIEW PORTABLE CLINICAL HISTORY: s/p port placement COMPARISON STUDY: 04/14/2017 FINDINGS: The heart is mildly enlarged. There is a left-sided A-Port catheter. The tip projects at the superior vena cava. No pneumothorax is visualized. There are multiple old rib fractures. Bilateral residual thickening persists. There is no lobar consolidation. A left lower lobe pulmonary nodule is again suspected. The previously identified right lower lobe pulmonary mass is not clearly visualized[ IMPRESSION: No evidence of pneumothorax status post placement of a left-sided A-Port catheter Electronically signed by: Shen Orona M.D. 06/25/2017 11:27 AM Dictated Date/Time: 06/25/2017 11:26 AM
[2017-06-25] MEDS ORDERED: FENTANYL CITRATE INJ 50 MCG/1 ML 2 ML VIAL IV PRN (11:30)
[2017-06-25] MEDS ORDERED: ATROPINE SULFATE 0.1 MG/ML 5ML SYR IV PRN (11:30)
[2017-06-25] MEDS ORDERED: EpHEDrine SULFATE INJ 50 MG/ML AMP IV PRN (11:30)
[2017-06-25 11:35] VITALS: BP 134/74; PULSE 59; TEMP 36.4; O2SAT 98
--- NOTE | 2017-06-25 11:41 | [facility] Operative Report ---
Operative Report Operative Date Jun 25, 2017. Pre-Operative Diagnosis needed for IV access use, cancer Surgeon Dr. Domenico Lindsay Findings Real-time ultrasound guidance was used for accessing the left internal jugular vein and interpreted by the surgeon. Fluoroscopy was utilized and interpreted by the surgeon for placement of the port. A total of 13 seconds of fluoroscopy time was utilized during this procedure. I attest to the content of the Intraoperative Record and any orders documented therein. Any exceptions are noted below.
[2017-06-25 12:07] VITALS: BP 123/68; PULSE 58; TEMP 36.3; O2SAT 97
--- NOTE | 2017-06-25 13:44 | Anesthesiology Progress Note ---
Anesthesia Post Op Note Date & Time Jun 25, 2017 at 13:44 Vital Signs Pain Intensity: 0 Vital Signs Past 12 Hours Date Time Temp Pulse Resp B/P (MAP) Pulse Ox O2 Delivery O2 Flow Rate FiO2 06/25/17 12:07 36.3 58 18 123/68 97 Room Air 06/25/17 11:35 36.4 59 18 134/74 98 Room Air 06/25/17 11:30 36.1 55 12 145/76 96 Room Air 06/25/17 11:20 54 16 138/79 100 Room Air 06/25/17 11:10 57 13 143/80 100 Oxymask 10 06/25/17 11:04 36.3 64 16 148/85 100 Oxymask 10 06/25/17 09:21 36.4 67 20 70/ (23) 94 Room Air Notes Mental Status: alert / awake / arousable, participated in evaluation Pt Amnestic to Procedure: Yes Nausea / Vomiting: adequately controlled Pain: adequately controlled Airway Patency, RR, SpO2: stable & adequate BP & HR: stable & adequate Hydration State: stable & adequate Anesthetic Complications: no major complications apparent
== END 2017-06-25 12:22 | disposition home or self-care (01) ==
LOC: C.ACU 08:40
PROVIDERS: ATTEND Surgery
DX: C67.9 Malignant neoplasm of bladder, unspecified (principal); C34.90 Malignant neoplasm of unspecified part of unspecified bronchus or lung; C79.89 Secondary malignant neoplasm of other specified sites; J44.9 Chronic obstructive pulmonary disease, unspecified; I10 Essential (primary) hypertension; N40.1 Benign prostatic hyperplasia with lower urinary tract symptoms; N13.8 Other obstructive and reflux uropathy; E78.5 Hyperlipidemia, unspecified; E66.9 Obesity, unspecified; F17.200 Nicotine dependence, unspecified, uncomplicated; Z88.6 Allergy status to analgesic agent; Z91.041 Radiographic dye allergy status; Z86.73 Personal history of transient ischemic attack (TIA), and cerebral infarction without residual deficits; Z82.49 Family history of ischemic heart disease and other diseases of the circulatory system; Z83.3 Family history of diabetes mellitus; Z80.51 Family history of malignant neoplasm of kidney; Z80.8 Family history of malignant neoplasm of other organs or systems; Z80.6 Family history of leukemia

== ENCOUNTER → 2017-07-28 | Outpatient (CLI) | payer OTHER ==
[~2017-07-28] MED LIST changes: -CEFAZOLIN 2000MG IV PUSH 15 ML IV SCH; -LACTATED RINGER'S 1000ML 1,000 ML IV SCH
== END | disposition home or self-care (01) ==
LOC: C.LABSPEC 17:19
PROVIDERS: ATTEND Urology
DX: C68.9 Malignant neoplasm of urinary organ, unspecified (principal)

== ENCOUNTER → 2017-08-12 | Outpatient (CLI) | payer OTHER ==
--- NOTE | 2017-08-12 14:44 | DIAGNOSTIC IMAGING REPORT ---
L SHOULDER MIN 2 VIEWS ROUTINE CLINICAL HISTORY: NEOPLASM OF BLADDER, NON SMALL CELL CA pain COMPARISON: None. DISCUSSION: Moderate degenerative change of the acromioclavicular as well as glenohumeral joint. No evidence for a true lytic lytic or blastic process. No evidence for fracture or dislocation. There is no evidence for soft tissue swelling. IMPRESSION: Moderate degenerative change. No acute process. The above report was generated using voice recognition software. It may contain grammatical, syntax or spelling errors. Electronically signed by: Amaury Sanchez M.D. 08/12/2017 2:43 PM Dictated Date/Time: 08/12/2017 2:41 PM
--- NOTE | 2017-08-12 14:56 | DIAGNOSTIC IMAGING REPORT ---
LEFT HUMERUS 2 VIEWS CLINICAL HISTORY: Left arm pain. FINDINGS: AP and lateral views of the left humerus are obtained. No prior studies are available for comparison at the time of dictation. The skeletal structures are osteopenic. There is no radiographic evidence of left humeral fracture. No destructive bony lesion is suggested. The shoulder and elbow joints are grossly maintained. There are healed left-sided rib fractures. The partially imaged left lung parenchyma appears clear. The hub of an infusion port is noted in the left chest wall. IMPRESSION: Osteopenia with no acute bony abnormality seen in the left humerus. Electronically signed by: Reinaldo Monge M.D. 08/12/2017 2:55 PM Dictated Date/Time: 08/12/2017 2:54 PM
== END | disposition home or self-care (01) ==
LOC: C.RAD 14:00
PROVIDERS: ATTEND Nurse Practitioner Family
DX: M85.822 Other specified disorders of bone density and structure, left upper arm (principal); M79.602 Pain in left arm; C67.9 Malignant neoplasm of bladder, unspecified

== ENCOUNTER → 2017-08-27 | Outpatient (CLI) | payer OTHER ==
[~2017-08-27] MED LIST changes: +OPTIRAY 320 IV PRN
--- NOTE | 2017-08-27 17:25 | DIAGNOSTIC IMAGING REPORT ---
ABDOMEN AND PELVIS CT WITH IV AND ORAL CONTRAST CT DOSE: 2350.33 mGy.cm HISTORY: Lung cancer. Bladder cancer. TECHNIQUE: Multiaxial CT images of the abdomen and pelvis were performed following the use of intravenous and oral contrast. A dose lowering technique was utilized adhering to the principles of ALARA. COMPARISON STUDY: PET CT 04/06/2017. Abdomen and pelvis CT 01/08/2017 outside hospital. FINDINGS: Emphysema. Spiculated mass within the lingula is better appreciated on the same day chest CT. No pleural effusions. No pneumothorax. Old, healed bilateral rib fractures. No suspicious lytic or blastic osseous lesions. Stable 6 mm hypodense lesion within the right hepatic dome. This is too small to characterize. The gallbladder, adrenal glands, and spleen are unremarkable. There are few punctate calcified granulomas within the pancreas consistent with chronic pancreatitis. No retroperitoneal lymphadenopathy. Mildly ectatic abdominal aorta, unchanged. Multiple stable bilateral renal hypodense lesions. Right-sided nephrolithiasis, unchanged. No hydronephrosis. Stable 8 mm exophytic hyperdense lesion within the lower pole the right kidney. This is incompletely characterize on this single phase study. Urothelial thickening within the right upper pole collecting system, right renal pelvis, and proximal right ureter has improved compared to the [address] The bladder is mildly distended. The prostate is enlarged. Bilateral fat-containing inguinal hernias, right greater than left. No pelvic lymphadenopathy. Fat-containing right lateral abdominal wall intramuscular mass is again noted. This measures tiny fat-containing umbilical hernia. No bowel wall thickening or obstruction. Normal appendix. IMPRESSION: 1. The spiculated lingular mass is better appreciated on the same day chest CT. 2. Interval improvement in the abnormal urothelial thickening within the right renal collecting system, right renal pelvis, and proximal right ureter. This is consistent with improvement in the patient's known urothelial malignancy. No hydronephrosis. 3. No new sites of metastatic disease within the abdomen or pelvis. 4. Additional findings as described above. Electronically signed by: Cameron Lee M.D. 08/27/2017 5:24 PM Dictated Date/Time: 08/27/2017 5:11 PM
--- NOTE | 2017-08-27 18:45 | DIAGNOSTIC IMAGING REPORT ---
CT OF THE CHEST WITH IV CONTRAST CLINICAL HISTORY: Non-small cell lung cancer. Bladder neoplasm. COMPARISON STUDY: Chest CT March 16, 2017 and PET/CT April 06, 2017. TECHNIQUE: Following IV administration of 115 mL of Optiray-320, helical axial images of the chest were obtained. Sagittal and coronal reconstructions were viewed as well as maximal intensity projections on an independent 3-D workstation. A dose lowering technique was utilized adhering to the principles of ALARA. FINDINGS: A few prominent mediastinal lymph nodes are similar to prior PET/CT of April 06, 2017. The size of the heart is normal. There is no pericardial effusion. A left sided Hgzefp-k-Denu is in place. There is no pneumothorax or pleural effusion. There is severe emphysema. A few calcified pulmonary nodules are noted. These are benign. A 2.2 x 2 cm spiculated lingular lesion has decreased in size since PET/CT of April 06, 2017 when it measured 3.4 x 2.4 cm. A 3.4 x 2.4 cm subpleural mass within the superior segment of the right lower lobe decreased in size since prior PET/CT when it measured 4.5 x 2.9 cm. There are no new lung lesions. No suspicious osseous lesions are present. There are multiple old rib fractures. There is an old sternal fracture. The abdomen and pelvis will be reported separately. IMPRESSION: 1. Moderate decrease in size of the right lower lobe and lingular lesions since PET/CT of April 06, 2017 consistent with a partial treatment response. The appearance favors synchronous bilateral lung cancers. Metastatic disease could appear similar although is considered less likely. 2. No evidence for progressive metastatic disease within the chest. 3. Severe emphysema. Electronically signed by: Giovanny Milian M.D. 08/27/2017 6:43 PM Dictated Date/Time: 08/27/2017 5:10 PM
== END | disposition home or self-care (01) ==
LOC: C.CTS 15:57
PROVIDERS: ATTEND Nurse Practitioner Family
DX: C67.9 Malignant neoplasm of bladder, unspecified (principal); C34.90 Malignant neoplasm of unspecified part of unspecified bronchus or lung; J43.9 Emphysema, unspecified

== ENCOUNTER → 2017-09-02 | Outpatient (CLI) | payer OTHER ==
[~2017-09-02] MED LIST changes: -OPTIRAY 320 IV PRN
== END | disposition home or self-care (01) ==
LOC: C.LABSPEC 16:58
PROVIDERS: ATTEND Urology
DX: N39.0 Urinary tract infection, site not specified (principal); C68.9 Malignant neoplasm of urinary organ, unspecified

== ENCOUNTER → 2017-09-15 | Outpatient (CLI) | payer OTHER | END | disposition home or self-care (01) | LOC: C.LAB 17:19 | PROVIDERS: ATTEND Urology | DX: R97.20 Elevated prostate specific antigen [PSA] (principal) ==

== ENCOUNTER → 2017-12-18 | Day surgery (SDC) | payer OTHER ==
[2017-12-02 08:23] VITALS: BMI 33.0
[~2017-12-18] VITALS: Ht 170.2 cm; Wt 95.9 kg
[~2017-12-18] MED LIST changes: -ACET-1311 PO; -ASCO10003 PO; +ASCO500T16 PO; +ATROPINE SULFATE 0.1 MG/ML 5ML SYR IV PRN; -BCTCR/30 EXT; +CEFAZOLIN 2000MG IV PUSH 15 ML IV SCH; +CHOL400T PO; +CLC100 PO; -CLOP1TAB15 PO; +EpHEDrine SULFATE INJ 50 MG/ML AMP IV PRN; +FENTANYL CITRATE INJ 50 MCG/1 ML 2 ML VIAL IV PRN; +FENTANYL CITRATE INJ 50 MCG/1 ML 2 ML VIAL ONE; +FLR/1 PO; +IPRA-64 INH; +IPRA1AER2 INH; +LACTATED RINGER'S 1000ML 1,000 ML IV SCH; +LIDOCAINE/EPINEPHRINE 1% 20 ML VIAL ONE; -METO25TA56 PO; +MGNO400 PO; +MIDAZOLAM HCL 1 MG/ML 2ML VIAL ONE; +MoRPHine SULFATE 2 MG/ML CARP IV PRN; +ONDA-170 PO; +ONDANSETRON INJ 2 MG/ML 2 ML VIAL IV PRN; +OXYC-57 PO; +OXYCODONE/ACETAMINOPHEN 5-325 TAB ONE; +OXYCODONE/ACETAMINOPHEN 5-325 TAB PO PRN; +PHENYLEPHRINE 100MCG/ML 5ML SYR IV PRN; +PROMETHAZINE HCL INJ 12.5 MG in SODIUM CHLORIDE 0.9% 50ML 50 ML IV PRN; +PROPOFOL IV EMULSION 10 MG/ML 20 ML VIAL ONE; +SENN-61 PO
[2017-12-18 06:30] VITALS: BP 170/87; PULSE 71; TEMP 36.7; O2SAT 94; Ht 170.2 cm; Wt 95.9 kg
--- NOTE | 2017-12-18 08:52 | Discharge Instructions ---
Discharge Instructions Date of Service Dec 18, 2017. Visit Reason for Visit: Bladder Cancer, Dehiscence Of Operative Wound Discharge Discharge Diagnosis / Problem: A-port removal Discharge Goals Goal(s): Specific goals Activity Recommendations Activity Limitations: as noted below Shower/Bathe: no limitations Driving or Machine Use: resume 1 day after discharge Anesthesia . Post Anesthesia Instructions: If you have had General Anesthesia or IV Sedation: * Do not drive today. * Resume driving when surgeon permits. * Do not make important decisions or sign legal documents today. * Call surgeon for: 1. Temperature elevations greater than 101 degrees F. 2. Uncontrollable pain. 3. Excessive bleeding. 4. Persistent nausea and vomiting. 5. Medication intolerance (nausea, vomiting or rash). * For nausea and vomiting use only clear liquids such as: tea, soda, bouillon until nausea subsides, then gradually increase diet as tolerated. * If you have any concerns or questions, call your surgeon's office. If physician is unavailable and it is an emergency, call 911 or go to the nearest emergency room. . Instructions / Follow-Up Instructions / Follow-Up Dr. Lindsay in 1-2 weeks as planned, call [phone] if you have any questions Diet Recommendations Recommended Home Diet: no limitations Procedures Procedures Performed: Removal of Mediport Pending Studies Studies pending at discharge: no Medical Emergencies . Who to Call and When: Medical Emergencies: If at any time you feel your situation is an emergency, please call 911 immediately. . Non-Emergent Contact Non-Emergency issues call your: Surgeon Call Non-Emergent contact if: you have a fever, temperature is above 101.5, your pain is not controlled, wound has increased drainage, wound has increased redness . . "Provider Documentation" section prepared by Dain Chino. .
--- NOTE | 2017-12-18 08:55 | [facility] Post Operative Brief Note ---
Immediate Operative Summary Operative Date Dec 18, 2017. Pre-Operative Diagnosis metastatic bladder cancer, Unwanted Mediport Post-Operative Diagnosis metastatic bladder Cancer, Unwanted Mediport Procedure(s) Performed Removal of Mediport Surgeon Dr Lindsay Associate Quality Engineer Surgeon(s) None Estimated Blood Loss 2CC Findings Consistent with Post-Op Diagnosis Specimens A: Explanted Mediport Drains None Anesthesia Type MAC Complication(s) none Disposition Accompanied Pt To Recover: no Disposition: Recovery Room / PACU
--- NOTE | 2017-12-18 09:02 | [facility] Operative Report ---
Operative Report Operative Date Dec 18, 2017. Pre-Operative Diagnosis metastatic bladder cancer, Unwanted Mediport Post-Operative Diagnosis Same Procedure(s) Performed Removal of Mediport with wound debridement and closure Surgeon Dr Lindsay Automotive Production Worker Surgeon(s) None Estimated Blood Loss 2CC Findings Mediport removed intact without issue. Capsule excised. Skin debrided to clean edges, closed in layers. Specimens A: Explanted Mediport Drains None Anesthesia MAC/local Complication(s) None Disposition Recovery Room / PACU Indications 72-year-old male with metastatic bladder cancer status post port placement several months ago. He is on Avastin and his wound broke down and his port is exposed, therefore plan for port removal. The risks of the procedure were discussed, all questions were answered, and the patient agreed to proceed with surgery as planned. Description of Procedure The patient was properly identified, consented, and taken to the operating room where he was placed in the supine position. Monitored anesthesia care was induced. SCDs and a safety belt were placed. Preoperative antibiotics were administered. The patient's left chest was prepped and draped in the standard sterile fashion. Surgical timeout was performed and all parties were in agreement that this was the correct patient and procedure to be performed and we continued as planned. Local anesthetic was injected along the skin incision and around the port. A incision was made through the old incision overlying the port and deepened down through the subcutaneous tissue with electrocautery. The sutures holding the port in place were removed and the port was removed and pressure held on his neck for several minutes. Hemostasis appeared good. The capsule surrounding the port was excised. The wound was irrigated and hemostasis was confirmed. The skin edges were debrided back to healthy skin. The skin was closed in layers with interrupted 3-0 Vicryl deep dermal sutures, followed by 3-0 nylon interrupted simple sutures. A sterile dressing was placed over the wound. The patient was extubated in the operating room and taken to the PACU where he recovered without apparent incident. All sponge, instrument and needle counts were correct at the conclusion of the procedure. The patient tolerated the procedure well. I attest to the content of the Intraoperative Record and any orders documented therein. Any exceptions are noted below.
[2017-12-18 09:39] VITALS: BP 162/83; PULSE 89; TEMP 37.3; O2SAT 97
--- NOTE | 2017-12-18 09:47 | Anesthesiology Progress Note ---
Anesthesia Post Op Note Date & Time Dec 18, 2017 at 09:47 Vital Signs Pain Intensity: 4 Vital Signs Past 12 Hours Date Time Temp Pulse Resp B/P (MAP) Pulse Ox O2 Delivery O2 Flow Rate FiO2 12/18/17 09:25 37.4 90 18 138/95 96 Room Air 12/18/17 09:15 94 16 141/85 96 Room Air 12/18/17 09:05 92 16 161/83 100 Mask 10 12/18/17 08:59 36 90 20 155/83 99 Mask 10 12/18/17 06:30 36.7 71 24 170/87 (114) 94 Room Air Notes Mental Status: alert / awake / arousable, participated in evaluation Pt Amnestic to Procedure: Yes Nausea / Vomiting: adequately controlled Pain: adequately controlled Airway Patency, RR, SpO2: stable & adequate BP & HR: stable & adequate Hydration State: stable & adequate Anesthetic Complications: no major complications apparent
[2017-12-18 10:09] VITALS: BP 160/78; PULSE 80; TEMP 37; O2SAT 98
== END | disposition home or self-care (01) ==
LOC: C.ACU 05:49
PROVIDERS: ATTEND Surgery
DX: T81.31XD Disruption of external operation (surgical) wound, not elsewhere classified, subsequent encounter (principal); Y83.8 Other surgical procedures as the cause of abnormal reaction of the patient, or of later complication, without mention of misadventure at the time of the procedure; C67.9 Malignant neoplasm of bladder, unspecified; C79.89 Secondary malignant neoplasm of other specified sites; J44.9 Chronic obstructive pulmonary disease, unspecified; I10 Essential (primary) hypertension; E11.9 Type 2 diabetes mellitus without complications; F17.200 Nicotine dependence, unspecified, uncomplicated; E66.9 Obesity, unspecified; Z68.33 Body mass index [BMI] 33.0-33.9, adult; Z86.73 Personal history of transient ischemic attack (TIA), and cerebral infarction without residual deficits

== ENCOUNTER → 2018-01-05 | Outpatient (CLI) | payer OTHER ==
[~2018-01-05] MED LIST changes: -ATROPINE SULFATE 0.1 MG/ML 5ML SYR IV PRN; -CEFAZOLIN 2000MG IV PUSH 15 ML IV SCH; -EpHEDrine SULFATE INJ 50 MG/ML AMP IV PRN; -FENTANYL CITRATE INJ 50 MCG/1 ML 2 ML VIAL IV PRN; -FENTANYL CITRATE INJ 50 MCG/1 ML 2 ML VIAL ONE; -LACTATED RINGER'S 1000ML 1,000 ML IV SCH; -LIDOCAINE/EPINEPHRINE 1% 20 ML VIAL ONE; -MIDAZOLAM HCL 1 MG/ML 2ML VIAL ONE; -MoRPHine SULFATE 2 MG/ML CARP IV PRN; -ONDANSETRON INJ 2 MG/ML 2 ML VIAL IV PRN; -OXYCODONE/ACETAMINOPHEN 5-325 TAB ONE; -OXYCODONE/ACETAMINOPHEN 5-325 TAB PO PRN; -PHENYLEPHRINE 100MCG/ML 5ML SYR IV PRN; -PROMETHAZINE HCL INJ 12.5 MG in SODIUM CHLORIDE 0.9% 50ML 50 ML IV PRN; -PROPOFOL IV EMULSION 10 MG/ML 20 ML VIAL ONE
[2018-01-05 14:01] LABS: BASO % 0.1 %; BASO ABS # 0.01 K/uL (0-0.2); EOS % 0.9 %; EOS ABS # 0.08 K/uL (0-0.5); HEMATOCRIT 42.1 % (42-52); HEMOGLOBIN 13.6 g/dL (14.0-18.0); IG# 0.02 K/uL (0.00-0.02); LYMPH % 25.2 %; LYMPH ABS # 2.17 K/uL (1.2-3.4); MEAN CORPUSCULAR HEMOGLOBIN 31.3 pg (25-34); MEAN CORPUSCULAR HGB CONC 32.3 g/dl (32-36); MEAN PLATELET VOLUME 9.9 fL (7.4-10.4); MONO % 7.9 %; MONO ABS # 0.68 K/uL (0.11-0.59); NEUT % 65.7 %; NEUT ABS # 5.65 K/uL (1.4-6.5); PLATELET COUNT 193 K/uL (130-400); RED CELL DISTRIBUTION WIDTH CV 18.8 % (11.5-14.5); RED CELL DISTRIBUTION WIDTH SD 67.9 fL (36.4-46.3); WHITE BLOOD COUNT 8.61 K/uL (4.8-10.8)
[2018-01-05 14:27] LABS: ALKALINE PHOSPHATASE 113 U/L (45-117); ALT/SGPT 21 U/L (12-78); AST/SGOT 24 U/L (15-37); BLOOD UREA NITROGEN 7 mg/dl (7-18); CALCIUM 10.3 mg/dl (8.5-10.1); CARBON DIOXIDE 26 mmol/L (21-32); CREATININE 0.86 mg/dl (0.60-1.40); GLUCOSE 111 mg/dl (70-99); POTASSIUM 3.9 mmol/L (3.5-5.1); SODIUM 137 mmol/L (136-145); TOTAL PROTEIN 7.9 gm/dl (6.4-8.2)
== END | disposition home or self-care (01) ==
LOC: C.LABSPEC 13:34
PROVIDERS: ATTEND Nurse Practitioner Family
DX: D49.4 Neoplasm of unspecified behavior of bladder (principal)

== ENCOUNTER 2018-06-16 04:47 | Inpatient (IN) ==
[2018-06-16] MEDS ORDERED: MoRPHine SULFATE 10 MG/ML CARP/VIAL IV STA ×2 (04:53→05:56)
[2018-06-16] MEDS ORDERED: ALBUT/IPRATROP 3MG/0.5MG NEB 3 ML VIAL NEB STA ×2 (04:53→05:56)
[2018-06-16] MEDS ORDERED: ONDANSETRON INJ 2 MG/ML 2 ML VIAL IV STA ×2 (04:53→05:56)
--- NOTE | 2018-06-16 04:56 | Emergency Department Note ---
ED Provider Note Name: Maikol Shetty Age: 73 M Arrives Via: EMS Informant: Pt, EMS CC: Shortness of Breath HPI: 73 male arrives for evaluation of shortness of breath. Notes gradually worsening over last few hours shob. Associated with wet productive cough as well as nausea, body aches and left chest pain. Admits several days increasing leg edema as well. Notes chest pain started over last half hour, worse with movement. Notes chronic pain from cancer and is on methadone. Ran out of medications a few days ago and worsening symptoms since then. Has been using inhaler with mild improvement. He has chronic left neck/arm pain and chronic diffuse abdominal pain of which these are unchanged. He has known Lung CA as well as Bladder CA for which he is chemo. He denies syncope, headache, fevers, vomiting, urinary/bowel changes, nor other symptoms. Exertion makes symptoms worse, rest makes better. Notes normal BM earlier this evening. ROS: See above HPI for pertinent positives & negatives. A total of 10 systems reviewed and were otherwise negative. 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 EYES: No scleral icterus, unremarkable pupils. ENT: Mucous membranes moist, no nasal congestion. NECK: No masses appreciated, no meningismus, trachea is midline. RESPIRATORY: Junky cough, Wet bilaterally with wheezing. Equal bilaterally CARDIOVASCULAR: Regular rate and rhythm. No murmurs, rubs, gallops appreciated. GASTROINTESTINAL: Vague diffuse TTP (states this is normal), no peritonitis. Bowel sounds positive. No masses appreciated. BACK: No midline tenderness, no CVA tenderness EXTREMITIES: Normal motion all extremities, no cyanosis. 2+ bilateral lower leg edema. Tatoos bilateral arms NEUROLOGIC: Alert and oriented, no acute motor or sensory deficits, no focal weakness, cranial nerves grossly intact. SKIN: No rash, no jaundice, no diaphoresis. ED Course: Prior Medical Record, Triage/Nursing Notes, Medications, Allergies reviewed by Me Vital Signs: reviewed and remarkable for HTN Labs: Reviewed and remarkable for Elevated Ph, low mag, mild wbc elevation Interventions: Saline lock, duoneb x 2, solumedrol 80mg IV, Zofran 4mg IV x 2, Hydralazine 10mg IV x 2, Doxy 100mg IV, Mag 1 gm IV Imaging: X ray results are stated below per my interpretation: Chest: 1 view: No infiltrate, no effusion, normal cardiac border. Multiple opacities similar to previous cxr consistent with lung ca nodules. Aortic ectasia similar EKG: Per my interpretation: NSR without ectopy nor ischemia. 82 bpm. qtc 446. No previous for comparison Consults: Hospitalist 6:20am Reassessments/Times: 04:50 - Initial Evaluation 05:30: Lungs clear, coughing up yellow/green sputum. Notes improved pain though still short of breath 05:50: Notes shob worsening again. Persistent cough, mild wheeze noted. SBP 188. Nausea returned. 06:15: Mild improvement. Continued SHOB. 06:20: Hospitalist paged 06:45: Mild hypoxia now on NC o2. Notes symptoms starting to resolve. Blood pressure: Elevated - Referred to hospitalist Disposition: Hospitalization. Prescriptions: none. Differentials: Pna, acs, pe, chf, flu, gi related, copd amongst other pathologies. Medical Decision Making: Unwell 73 yr old male with worsening shortness of breath and associated nausea and chest pains. He does have left chest chest pain on arrival which resolved with morphine and with normal trop/ekg I doubt this is acs though he is clearly increased risk. He is allergic to asa. BP is quite elevated requiring 2 rounds hydralazine before improvement. He was given multiple duonebs with only mild improvement in shob. Given history he was given empiric solu-medrol though wheezing is not very impressive. For lung coverage will start doxy though no evidence of sepsis/bactermia thus I do not feel that Blood Cultures indicated. Prolonged time to return of labs revealing elevated pH though pCO2 actually a bit low. Suspect that much of his symptoms may be attributable to narcotic withdrawal as well given off methadone a few days and symptoms improving with morphine. His abdominal discomfort he notes as chronic and given soft abdomen without peritonitis I do not feel that emergent imaging acutely indicated. Flu negative. CXR without clear evidence of pneumonia. Mag low consistent with his weakness issue and thus 1 gm IV ordered. Eventually patient improving though mildly hypoxic. With fact he has no meds at home, has had chest pains, and his severe HTN on arrival seems reasonable consulting hospitalist for further management. Impression: Hypertensive Emergency Left Sided Chest Pain Hypomagnesemia Generalized weakness Ubaldo Duong MD Impression & Plan Hypertensive emergency, Left sided chest pain, Hypomagnesemia, Generalized weakness, Acute narcotic withdrawal Past Med/Surg History Social History marital status: marital status details: 1 son and 3 daughters Current Living Situation: Alone Current Living Situation Comment: lives in [place] current occupational status: retired current occupation: [employer] Feels Safe at Home: Yes Safety Concerns: Feels Safe At This Time Smoking Status: Current some day smoker Tobacco Type: cigarettes Cigarettes per Day: 1 ppd x 60 years; quit 1 month ago Hx Alcohol Use: Yes (quit 2017) Hx Substance Use: No Beliefs That Will Affect Care: None Preferred Language: Maltese Communication Ability: Effective well-balanced diet: other caffeine: Yes (3 cups/day) during the past year weight has: decreased > 10 lbs Results & Data Vital Signs Vital Signs - 24 hr 06/16/18 04:56 06/16/18 05:26 06/16/18 05:44 Temperature 36.5 C Temperature Source Oral Sepsis Recent Fever Within 48 Hours No Sepsis New/Unexplained Change in Mental Status No Sepsis Action Taken by Nursing No Action Required Pulse Rate 83 Pulse Rate [Right Finger] 80 80 Pulse Rhythm [Right Finger] Pulse Strength [Right Finger] Respiratory Rate 20 20 20 Respiratory Effort / Characteristics Non-Labored Spontaneous Non-Labored Spontaneous Non-Labored Spontaneous Respiratory Depth Normal Normal Normal Respiratory Pattern Regular Blood Pressure 222/104 H Blood Pressure [Left Arm] 184/93 H 188/88 H Blood Pressure Mean 143 Blood Pressure Mean [Left Arm] 123 121 Blood Pressure Position [Left Arm] Pulse Oximetry 94 96 97 Oxygen Delivery Method Room Air Room Air Room Air Oxygen Flow Rate 06/16/18 06:24 06/16/18 06:40 06/16/18 07:00 Temperature Temperature Source Sepsis Recent Fever Within 48 Hours Sepsis New/Unexplained Change in Mental Status Sepsis Action Taken by Nursing Pulse Rate Pulse Rate [Right Finger] 75 80 Pulse Rhythm [Right Finger] Pulse Strength [Right Finger] Respiratory Rate 20 Respiratory Effort / Characteristics Respiratory Depth Respiratory Pattern Blood Pressure Blood Pressure [Left Arm] 166/81 H 146/72 H Blood Pressure Mean Blood Pressure Mean [Left Arm] 109 96 Blood Pressure Position [Left Arm] Pulse Oximetry 97 88 L 96 Oxygen Delivery Method Room Air Room Air Nasal Cannula Oxygen Flow Rate 0 2 06/16/18 07:25 06/16/18 07:31 06/16/18 08:01 Temperature Temperature Source Sepsis Recent Fever Within 48 Hours Sepsis New/Unexplained Change in Mental Status Sepsis Action Taken by Nursing Pulse Rate 77 80 Pulse Rate [Right Finger] Pulse Rhythm [Right Finger] Pulse Strength [Right Finger] Respiratory Rate 26 H 21 Respiratory Effort / Characteristics Short of Breath SOB on Exertion Respiratory Depth Shallow Respiratory Pattern Irregular Blood Pressure 156/81 H 134/75 Blood Pressure [Left Arm] Blood Pressure Mean 106 94 Blood Pressure Mean [Left Arm] Blood Pressure Position [Left Arm] Pulse Oximetry 97 97 Oxygen Delivery Method Nasal Cannula Oxygen Flow Rate 2 06/16/18 08:31 06/16/18 09:20 06/16/18 09:31 Temperature Temperature Source Sepsis Recent Fever Within 48 Hours Sepsis New/Unexplained Change in Mental Status Sepsis Action Taken by Nursing Pulse Rate 82 90 96 H Pulse Rate [Right Finger] Pulse Rhythm [Right Finger] Pulse Strength [Right Finger] Respiratory Rate 27 H 30 H 24 Respiratory Effort / Characteristics Respiratory Depth Respiratory Pattern Blood Pressure 159/75 H 153/77 H 150/75 H Blood Pressure [Left Arm] Blood Pressure Mean 103 102 100 Blood Pressure Mean [Left Arm] Blood Pressure Position [Left Arm] Pulse Oximetry 94 92 94 Oxygen Delivery Method Oxygen Flow Rate 06/16/18 09:50 06/16/18 11:01 06/16/18 11:06 Temperature 36.6 C 36.4 C L Temperature Source Oral Oral Sepsis Recent Fever Within 48 Hours Sepsis New/Unexplained Change in Mental Status Sepsis Action Taken by Nursing Pulse Rate 83 Pulse Rate [Right Finger] 80 93 H 91 H Pulse Rhythm [Right Finger] Regular Pulse Strength [Right Finger] Normal Respiratory Rate 18 20 18 Respiratory Effort / Characteristics Non-Labored Spontaneous Non-Labored Spontaneous Respiratory Depth Normal Respiratory Pattern Regular Blood Pressure Blood Pressure [Left Arm] 171/78 H 163/84 H Blood Pressure Mean Blood Pressure Mean [Left Arm] 109 110 Blood Pressure Position [Left Arm] Lying Sitting Pulse Oximetry 98 98 98 Oxygen Delivery Method Nasal Cannula Nasal Cannula Nasal Cannula Oxygen Flow Rate 2 2 2 06/16/18 12:00 Temperature Temperature Source Sepsis Recent Fever Within 48 Hours Sepsis New/Unexplained Change in Mental Status Sepsis Action Taken by Nursing Pulse Rate Pulse Rate [Right Finger] Pulse Rhythm [Right Finger] Pulse Strength [Right Finger] Respiratory Rate Respiratory Effort / Characteristics Non-Labored Spontaneous Respiratory Depth Normal Respiratory Pattern Regular Blood Pressure Blood Pressure [Left Arm] Blood Pressure Mean Blood Pressure Mean [Left Arm] Blood Pressure Position [Left Arm] Pulse Oximetry Oxygen Delivery Method Nasal Cannula Oxygen Flow Rate 2 Laboratory Data Result diagrams: 06/16/18 05:41 06/16/18 05:41 Lab Results 06/16/18 06/16/18 06/16/18 Range/Units 05:24 05:41 05:41 WBC 12.87 H (4.8-10.8) K/uL RBC 4.91 (4.7-6.1) M/uL Hgb 13.9 L (14.0-18.0) g/dL Hct 42.4 (42-52) % MCV 86.4 (80-100) fL MCH 28.3 (25-34) pg MCHC 32.8 (32-36) g/dL RDW Std Deviation 64.5 H (36.4-46.3) fL RDW Coeff of James 20.5 H (11.5-14.5) % Plt Count 168 (130-400) K/uL MPV 9.2 (7.4-10.4) fL Immature Gran % (Auto) 0.5 % Neut % (Auto) 78.6 % Lymph % (Auto) 13.8 % Nolan % (Auto) 6.6 % Eos % (Auto) 0.4 % Baso % (Auto) 0.1 % Immature Gran # (Auto) 0.06 H (0.00-0.02) K/uL Neut # (Auto) 10.12 H (1.4-6.5) K/uL Lymph # (Auto) 1.78 (1.2-3.4) K/uL Nolan # (Auto) 0.85 H (0.11-0.59) K/uL Eos # (Auto) 0.05 (0-0.5) K/uL Baso # (Auto) 0.01 (0-0.2) K/uL RBC Morphology Unremarkable PT (9.0-12.0) Seconds INR (0.9-1.1) ABG pH 7.53 H* (7.35-7.45) ABG pCO2 29 L (35-46) mmHg ABG pO2 76 L (80-95) mm/Hg ABG HCO3 24 (19-24) mmol/L ABG O2 Saturation 96.5 H (90-95) % ABG Base Excess 2.0 H (-9-1.8) mEq/L Doe Test Pos (Pos) Barometric Pressure 726.8 mm/Hg Oxygen Given RA Sodium (136-145) mmol/L Potassium (3.5-5.1) mmol/L Chloride (98-107) mmol/L Carbon Dioxide (21-32) mmol/L Anion Gap (3-11) BUN (7-18) mg/dl Creatinine (0.6-1.4) mg/dl Est Cr Clr Drug Dosing ml/min Est GFR ( Amer) Est GFR (Non-Af Amer) BUN/Creatinine Ratio (10-20) Glucose (70-99) mg/dl Calcium (8.5-10.1) mg/dl Magnesium (1.8-2.4) mg/dl Total Bilirubin (0.2-1) mg/dl Direct Bilirubin (0-0.2) mg/dl AST (15-37) U/L ALT (12-78) U/L Alkaline Phosphatase (45-117) U/L Troponin I (0-0.045) ng/ml NT-Pro-B Natriuret Pep (0-900) pg/ml Total Protein (6.4-8.2) gm/dl Albumin (3.4-5.0) gm/dl Lipase (73-393) U/L Influenza Type A (PCR) Neg for Influ A (Neg) Influenza Type B (PCR) Neg for Influ B (Neg) 06/16/18 06/16/18 06/16/18 Range/Units 05:41 11:29 11:29 WBC (4.8-10.8) K/uL RBC (4.7-6.1) M/uL Hgb (14.0-18.0) g/dL Hct (42-52) % MCV (80-100) fL MCH (25-34) pg MCHC (32-36) g/dL RDW Std Deviation (36.4-46.3) fL RDW Coeff of James (11.5-14.5) % Plt Count (130-400) K/uL MPV (7.4-10.4) fL Immature Gran % (Auto) % Neut % (Auto) % Lymph % (Auto) % Nolan % (Auto) % Eos % (Auto) % Baso % (Auto) % Immature Gran # (Auto) (0.00-0.02) K/uL Neut # (Auto) (1.4-6.5) K/uL Lymph # (Auto) (1.2-3.4) K/uL Nolan # (Auto) (0.11-0.59) K/uL Eos # (Auto) (0-0.5) K/uL Baso # (Auto) (0-0.2) K/uL RBC Morphology PT 10.7 (9.0-12.0) Seconds INR 1.1 (0.9-1.1) ABG pH (7.35-7.45) ABG pCO2 (35-46) mmHg ABG pO2 (80-95) mm/Hg ABG HCO3 (19-24) mmol/L ABG O2 Saturation (90-95) % ABG Base Excess (-9-1.8) mEq/L Doe Test (Pos) Barometric Pressure mm/Hg Oxygen Given Sodium 136 (136-145) mmol/L Potassium 3.5 (3.5-5.1) mmol/L Chloride 103 (98-107) mmol/L Carbon Dioxide 26 (21-32) mmol/L Anion Gap 7.0 (3-11) BUN 13 (7-18) mg/dl Creatinine 0.85 (0.6-1.4) mg/dl Est Cr Clr Drug Dosing 89.9 ml/min Est GFR ( Amer) 101.6 Est GFR (Non-Af Amer) 87.7 BUN/Creatinine Ratio 15.3 (10-20) Glucose 142 H (70-99) mg/dl Calcium 9.1 (8.5-10.1) mg/dl Magnesium 1.6 L (1.8-2.4) mg/dl Total Bilirubin 0.5 (0.2-1) mg/dl Direct Bilirubin 0.2 (0-0.2) mg/dl AST 22 (15-37) U/L ALT 39 (12-78) U/L Alkaline Phosphatase 86 (45-117) U/L Troponin I < 0.015 < 0.015 (0-0.045) ng/ml NT-Pro-B Natriuret Pep 91 (0-900) pg/ml Total Protein 6.9 (6.4-8.2) gm/dl Albumin 3.2 L (3.4-5.0) gm/dl Lipase 156 (73-393) U/L Influenza Type A (PCR) (Neg) Influenza Type B (PCR) (Neg) Administered Medications Albuterol (Duoneb) 3 ml NEB QIDR [facility] Stop: 07/16/18 11:59 Last Admin: 06/16/18 11:04 Dose: 3 ml Ascorbic Acid (Vitamin C) [facility] [place]: 07/16/18 09:50 Last Admin: 06/16/18 11:47 Dose: 1,000 mg Budesonide/Formoterol Fumarate (Symbicort 160mcg/4.5mcg) 2 puffs INH BID [facility] Stop: 07/16/18 09:50 Last Admin: 06/16/18 11:49 Dose: 2 puffs Cetirizine HCl (Zyrtec) 5 mg PO QAM [facility] Stop: 07/16/18 09:50 Last Admin: 06/16/18 11:47 Dose: 5 mg Cyanocobalamin (Vitamin B-12) 100 mcg PO QAM [facility] Stop: 07/16/18 09:50 Last Admin: 06/16/18 11:48 Dose: 100 mcg Docusate Sodium (Colace) 100 mg PO BID [facility] Stop: 07/16/18 09:50 Last Admin: 06/16/18 11:42 Dose: Not Given Enoxaparin Sodium (Lovenox) 40 mg SQ Q24H [facility] Stop: 07/16/18 12:59 Last Admin: 06/16/18 13:37 Dose: 40 mg Finasteride (Proscar) 5 mg PO QAM [facility] Stop: 07/16/18 09:50 Last Admin: 06/16/18 11:46 Dose: 5 mg Fludrocortisone Acetate (Florinef) 0.1 mg PO QAM [facility] Stop: 07/16/18 09:50 Last Admin: 06/16/18 11:47 Dose: 0.1 mg Sodium Chloride (Nss 1000ml) 1,000 mls @ 100 mls/hr IV .Q10H [facility] Stop: 06/16/18 19:50 Last Admin: 06/16/18 11:28 Dose: 100 mls/hr Magnesium Oxide (Mag-Ox) 400 mg PO BID [facility] Stop: 07/16/18 09:50 Last Admin: 06/16/18 11:50 Dose: 400 mg Methadone HCl (Dolophine) 10 mg PO QID [facility] Stop: 06/30/18 12:59 Last Admin: 06/16/18 12:54 Dose: 10 mg Ondansetron HCl (Zofran) 4 mg IV Q6H PRN PRN Reason: Nausea Stop: 07/16/18 09:50 Last Admin: 06/16/18 11:44 Dose: 4 mg Potassium Chloride (Klor-Con M20) 20 meq PO DAILY [facility] Stop: 07/16/18 09:50 Last Admin: 06/16/18 11:49 Dose: 20 meq Prednisone (Prednisone) 50 mg PO Q6H [facility] Stop: 06/16/18 18:01 Last Admin: 06/16/18 12:54 Dose: 50 mg Pyridoxine HCl (Vitamin B-6) 100 mg PO QAM [facility] Stop: 07/16/18 09:50 Last Admin: 06/16/18 11:49 Dose: 100 mg Sennosides (Senokot) 17.2 mg PO BID [facility] Stop: 07/16/18 09:50 Last Admin: 06/16/18 11:42 Dose: Not Given Tiotropium [place] (Spiriva) 1 puffs INH [facility] Stop: 07/16/18 09:50 Last Admin: 06/16/18 11:51 Dose: 1 puffs Vitamin D (Vitamin D3) 400 units PO QAM [facility] Stop: 07/16/18 09:50 Last Admin: 06/16/18 11:47 Dose: 400 units Discontinued Medications Albuterol (Duoneb) 3 ml NEB NOW STA Stop: 06/16/18 04:54 Last Admin: 06/16/18 05:11 Dose: 3 ml Albuterol (Duoneb) 3 ml NEB NOW STA Stop: 06/16/18 05:57 Last Admin: 06/16/18 06:13 Dose: 3 ml Hydralazine HCl (Hydralazine Hcl) 10 mg IV NOW STA Stop: 06/16/18 05:08 Last Admin: 06/16/18 05:18 Dose: 10 mg Hydralazine HCl (Hydralazine Hcl) 10 mg IV NOW STA Stop: 06/16/18 05:57 Last Admin: 06/16/18 06:05 Dose: 10 mg Magnesium Sulfate/Dextrose (Magnesium Sulfate / D5w) 1 gm in 100 mls @ 100 mls/ hr IV ONE ONE Stop: 06/16/18 07:42 Last Infusion: 06/16/18 07:55 Dose: 0 mls/hr Admin: 06/16/18 06:55 Dose: 100 mls/hr Doxycycline Hyclate 100 mg/ (Dextrose) 110 mls @ 50 mls/hr IV NOW STA Stop: 06/16/18 08:54 Last Infusion: 06/16/18 09:19 Dose: 0 mls/hr Admin: 06/16/18 07:07 Dose: 50 mls/hr Magnesium Sulfate/Dextrose (Magnesium Sulfate / D5w) 1 gm in 100 mls @ 100 mls/ hr IV ONE ONE Stop: 06/16/18 08:45 Last Infusion: 06/16/18 09:20 Dose: 0 mls/hr Admin: 06/16/18 08:20 Dose: 100 mls/hr Methadone HCl (Dolophine) 10 mg PO NOW STA Stop: 06/16/18 08:37 Last Admin: 06/16/18 09:06 Dose: 10 mg Methylprednisolone (Solumedrol) 80 mg IV NOW STA Stop: 06/16/18 05:57 Last Admin: 06/16/18 06:04 Dose: 80 mg Morphine Sulfate (Morphine Sulfate) 6 mg IV NOW STA Stop: 06/16/18 04:54 Last Admin: 06/16/18 05:11 Dose: 6 mg Morphine Sulfate (Morphine Sulfate) 8 mg IV NOW STA Stop: 06/16/18 05:57 Last Admin: 06/16/18 06:04 Dose: 8 mg Ondansetron HCl (Zofran) 4 mg IV NOW STA Stop: 06/16/18 04:54 Last Admin: 06/16/18 05:11 Dose: 4 mg Ondansetron HCl (Zofran) 4 mg IV NOW STA Stop: 06/16/18 05:57 Last Admin: 06/16/18 06:13 Dose: 4 mg Discharge Plan Visit Data *Final* Discharge Date/Time: 06/16/18 09:39 Chief Complaint: Shortness of Breath/Dyspnea ED Provider: Ubaldo Duong Discharge Problem: Hypertensive emergency, Left sided chest pain, Hypomagnesemia, Generalized weakness, Acute narcotic withdrawal Patient Disposition: Admitted As Inpatient Discharge Instructions Interventions: ED Discharge Assessment Last Done: 06/16/18 09:39
[2018-06-16] MEDS ORDERED: HydrALAZINE HCL 20 MG/ML VIAL IV STA ×2 (05:07→05:56)
[2018-06-16 05:53] LABS: Basophils # (auto) 0.01 K/uL (0-0.2); Basophils % (auto) 0.1 %; Eosinophils # (auto) 0.05 K/uL (0-0.5); Eosinophils % (auto) 0.4 %; Hematocrit (blood only) 42.4 % (42-52); Hemoglobin 13.9 g/dL (14.0-18.0); Immature Granulocytes # (auto) 0.06 K/uL (0.00-0.02); Immature Granulocytes % (auto) 0.5 %; Lymphocytes # (auto) 1.78 K/uL (1.2-3.4); Lymphocytes % (auto) 13.8 %; Mean Corpuscular Hgb Conc 32.8 g/dL (32-36); Mean Corpuscular Volume 86.4 fL (80-100); Mean Platelet Volume 9.2 fL (7.4-10.4); Monocytes # (auto) 0.85 K/uL (0.11-0.59); Monocytes % (auto) 6.6 %; Neutrophils # (auto) 10.12 K/uL (1.4-6.5); Neutrophils % (auto) 78.6 %; Platelet Count 168 K/uL (130-400); RDW Coefficient of Variation 20.5 % (11.5-14.5); RDW Standard Deviation 64.5 fL (36.4-46.3); Red Blood Count 4.91 M/uL (4.7-6.1); White Blood Count 12.87 K/uL (4.8-10.8)
[2018-06-16] MEDS ORDERED: methylPREDNISolone 125 MG/2 ML VIAL IV STA (05:56)
[2018-06-16 06:08] LABS: HCO3 ABG 24 mmol/L (19-24); Oxygen Saturation ABG 96.5 % (90-95); PCO2 ABG 29 mmHg (35-46); PO2 ABG 76 mm/Hg (80-95)
[2018-06-16 06:09] LABS: Allen Test Pos (Pos)
[2018-06-16 06:10] LABS: Alanine Aminotransferase 39 U/L (12-78); Albumin Level 3.2 gm/dl (3.4-5.0); BUN Creatinine Ratio 15.3 (10-20); Bilirubin Direct 0.2 mg/dl (0-0.2); Blood Urea Nitrogen 13 mg/dl (7-18); Calcium 9.1 mg/dl (8.5-10.1); Carbon Dioxide 26 mmol/L (21-32); Chloride 103 mmol/L (98-107); Creatinine Clr Calc Pharmacy 89.9 ml/min; Est GFR (African American) 101.6; Est GFR (Non-African American) 87.7; Glucose 142 mg/dl (70-99); Magnesium 1.6 mg/dl (1.8-2.4); Potassium 3.5 mmol/L (3.5-5.1); Sodium 136 mmol/L (136-145)
[2018-06-16 06:12] LABS: pH ABG 7.53 (7.35-7.45)
[2018-06-16 06:15] LABS: Influenza A virus by PCR Neg for Influ A (Neg); Influenza B virus by PCR Neg for Influ B (Neg)
[2018-06-16 06:16] LABS: Alkaline Phosphatase 86 U/L (45-117); Aspartate Aminotransferase 22 U/L (15-37); Bilirubin,Total 0.5 mg/dl (0.2-1); NT Pro B Type Natriuretic Pept 91 pg/ml (0-900); Total Protein 6.9 gm/dl (6.4-8.2); Troponin I < 0.015 ng/ml (0-0.045)
[2018-06-16] MEDS ORDERED: DOXYCYCLINE HYCLATE 100 MG in DEXTROSE 5% 100 ML IV STA (06:43)
[2018-06-16] MEDS ORDERED: MAGNESIUM SULFATE / D5W 1 GM/100 ML BAG IV ONE ×2 (06:43→07:46)
--- NOTE | 2018-06-16 07:01 | XRay Report ---
XR chest 1V portable CLINICAL HISTORY: 73 years-old Male presenting with Worsening SHOB/Cough. TECHNIQUE: Portable upright AP view of the chest was obtained. COMPARISON: 11/08/[address] from 08/27/2017. FINDINGS: The left internal jugular Mediport has been removed. Atherosclerosis and tortuosity of the thoracic a chepe. Cardiac silhouette normal in size. Calcified granuloma in the periphery of the right mid lung a gain noted. Left basilar nodule remains present. The known nodule in the superior segment of the righ t lower lobe in a paramediastinal location is also noted. No new focal opacity. Heterogeneity of lung parenchyma with mild hyperinflation. No large effusion or pneumothorax. Degenerative changes of the thoracic spine. Multiple old right rib fractures evident. IMPRESSION: 1. Findings suggest emphysema. No focal infiltrate to suggest pneumonia. 2. Redemonstration of the paramediastinal right lower lobe and left lingular nodules consistent with the known sites of treated disease. Electronically signed by: Bobby Luna M.D. 06/16/2018 7:00 AM
[2018-06-16 07:14] LABS: RBC Morphology Unremarkable
--- NOTE | 2018-06-16 07:47 | History & Physical Report ---
Date of Service June 16, 2018 Assessment & Plan (1) Acute narcotic withdrawal: Patient was taking his methadone 4 times/day up until about 1 week ago, then cut it to once daily as his supply was running low. He did not call the heme/onc office because of lack of finances to get a refill. He then completely ran out 3 days ago. I believe some of his symptoms are likely due to narcotic withdrawal. He has received IV morphine in the ER. Will give him a dose of his methadone NOW, then resume QID dosing as previous. Allow oxycodone q4h prn for breakthrough; adjust as needed. He denies diarrhea thus will defer on immodium therapy for now. Present on Admission?: Yes (2) Generalized weakness: Unclear if he is coming down with an illness, if this is due to his narcotic withdrawal, if low magnesium is contributing, or a combination of factors. * place back on methadone for narcotic withdrawal * check blood cultures * check u/a and urine culture * flu PCR noted to be negative * replace low magnesium * CT chest/abd/pelvis to r/o PE, advancing lung ca, etc * if any fever consider empiric treatment of influenza despite negative testing Patient also seems depressed - consider Rx of such. Present on Admission?: Yes (3) Hypertensive urgency: BPs already improved s/p hydralazine in the ER as well as pain meds. Place on telemetry. Serial troponins due to chest pain. EKG is stable. High BPs could be due to pain, withdrawal from narcotics, etc. Present on Admission?: Yes (4) Left sided chest pain: No known h/o CAD. No prior h/o VTE but at high risk of such. Has had LE edema. Check dopplers of legs, r/o DVT. CT PE protocol TONIGHT AT 1900 after prednisone/benadryl pre-contrast protocol. Serial troponins. Telemetry. Some pain could be narcotic withdrawal as well. Present on Admission?: Yes (5) Hypomagnesemia: Give additional IV magnesium now. BMP with mag levels in AM tomorrow. Likely due to poor oral intake at home. Present on Admission?: Yes (6) Essential (primary) hypertension: This is in his medical record but he is not on meds for such, perhaps due to severe weight loss. With that said he presented markedly hypertensive. Follow BPs carefully. (7) COPD (chronic obstructive pulmonary disease): Does not appear to be in exacerbation. Lungs are quite clear at time of my exam although he did receive bronchodilators prior to my arrival. Follow for now. Cont symbicort, spiriva, and he will be receiving prednisone but this is mainly for the pre-CT contrast protocol. (8) Stage 4 lung cancer: Followed by Dr. Anand, receiving Opdivo treatment. Last PET/CT in Jan 2018 showed progressive stage 4 disease. He has continued to lose weight since then suggesting advancing disease. CTs later today. Present on Admission?: Yes (9) Bladder cancer: history of such s/p TURBT multiple times. check u/a and urine cx, r/o UTI. (10) Severe protein-calorie malnutrition: 50+ pound weight loss in the last few months due to stage 4 cancer MVI, boost, etc (11) Abdominal pain: could be constipation-related OR due to metastatic disease. LFTs, lipase normal. check u/a and urine cx. CT abd/pelvis with po/IV contrast for further delineation. (12) DVT prophylaxis: lovenox daily total time spent on admission activities - 75 minutes History of Present Illness Chief Complaint: nausea, emesis, illness Primary Care Provider: Aylin Broderick PA-C 73yo male with history of lung cancer, currently on Opdivo therapy, as well as bladder cancer and COPD - presents with acute onset of nausea, emesis, subjective fever, chills, and shortness of breath beginning about 0230 this am. Feels very tired/fatigued. No myalgias. Minimal cough. Reports chronic abdominal pain and b/l shoulder pain. He is on methadone for chronic pain related to his cancer and ran out of it on 06/13/18. He typically takes it QID but started "rationing" it on 06/08/18 by taking it just once daily. No sick contacts. No recent travel. Last chemo was on 06/08/18. He denies any dyspnea earlier this week at home. Denies any pain in his legs. When asked what his main complaint(s) is/are he states "my throat" then says it is chest and his breathing. Allergies Allergy/AdvReac Type Severity Reaction Status Date / Time Bactrim Allergy Severe TONGUE Verified 12/02/17 08:11 SWELLS/FONG mupirocin Allergy Severe ANAPHYLAXIS Verified 06/16/18 06:02 sulfamethoxazole Allergy Severe TONGUE Verified 06/16/18 06:02 SWELLS/FONG trimethoprim Allergy Severe TONGUE Verified 06/16/18 06:02 SWELLS/FONG Iodinated Contrast- Oral and Allergy Intermediate HIVES/ITCHI Verified 06/16/18 06:02 IV Dye NG lisinopril Allergy Intermediate Tongue Verified 06/16/18 06:02 Swelling mustard Allergy Intermediate Hives, Verified 06/16/18 06:02 SOB, Itchy aspirin Allergy Mild ITCHY Verified 06/16/18 06:02 adhesive AdvReac Intermediate Tape - Rash Verified 06/16/18 06:02 Home Medications Home Medications Medication Instructions Recorded Confirmed Type Nebulizer Treatments 1 dose INHALATION QID 03/30/18 06/16/18 History albuterol sulfate 2 puff INHALATION Q4H PRN 03/30/18 06/16/18 History ascorbic acid (vitamin C) [Vitamin 1 g PO QAM 03/30/18 06/16/18 History C] atorvastatin 80 mg PO PM 03/30/18 06/16/18 History budesonide-formoterol [Symbicort] 2 puff INHALATION BID 03/30/18 06/16/18 History cetirizine 5 mg PO QAM 03/30/18 06/16/18 History cholecalciferol (vitamin D3) 400 unit PO QAM 03/30/18 06/16/18 History [Vitamin D3] cyanocobalamin (vitamin B-12) 100 mcg PO QAM 03/30/18 06/16/18 History [Vitamin B-12] docusate sodium 100 mg PO BID 03/30/18 06/16/18 History finasteride 5 mg PO QAM 03/30/18 06/16/18 History fludrocortisone 0.1 mg PO QAM 03/30/18 06/16/18 History magnesium oxide 420 mg PO BID 03/30/18 06/16/18 History methadone 10 mg PO QID 03/30/18 06/16/18 History pyridoxine (vitamin B6) [Vitamin 100 mg PO QAM 03/30/18 06/16/18 History B-6] sennosides 2 tabs PO BID PRN 03/30/18 06/16/18 History terazosin 2 mg PO QPM 03/30/18 06/16/18 History tiotropium bromide [Spiriva with 1 cap INHALATION QAM 03/30/18 06/16/18 History HandiHaler] potassium chloride 20 meq PO DAILY 06/16/18 06/16/18 History Past Med/Surg History Social History marital status: marital status details: 1 son and 3 daughters Current Living Situation: Alone Current Living Situation Comment: lives in [place] current occupational status: retired current occupation: [employer] Feels Safe at Home: Yes Safety Concerns: Feels Safe At This Time Smoking Status: Current some day smoker Tobacco Type: cigarettes Cigarettes per Day: 1 ppd x 60 years; quit 1 month ago Hx Alcohol Use: Yes (quit 2017) Hx Substance Use: No Beliefs That Will Affect Care: None Preferred Language: [place] Communication Ability: Effective well-balanced diet: other caffeine: Yes (3 cups/day) during the past year weight has: decreased > 10 lbs Review of Systems Constitutional: + fever, + chills, + fatigue, + malaise, + weakness, + anorexia and + weight loss (65 pounds over several months ); no body aches Eyes: no worsening vision Ear, Nose, Mouth, Throat: + nasal congestion and + dry mouth; no dysphagia Respiratory: + pain on inspiration (started this AM); no hemoptysis and no wheezing Cardiovascular: + chest pain and + edema (x 1 week); no orthopnea and no paroxysmal nocturnal dyspnea Gastrointestinal: + abdominal pain, + nausea, + vomiting and + constipation; no diarrhea/loose stools Genitourinary (Male): + hematuria (occasional/ "great while"); no dysuria Musculoskeletal: + back pain and + joint pain Integumentary: no rash Neurologic: no numbness Psychiatric: no depression no diabetes Hematologic / Lymphatic: no easy bleeding and no easy bruising Physical Exam 2 Vital Signs (Past 24 Hours): Last Vital Signs Temp 36.5 C 06/16/18 04:56 Pulse 80 06/16/18 07:00 Resp 20 06/16/18 07:00 BP 146/72 H 06/16/18 07:00 Pulse Ox 96 06/16/18 07:00 Constitutional: + ill appearing and average body habitus; no acute distress and no altered mental status Eyes: PERRL ENMT: Ears: + external ear abnormality (deformed right ear but TM is wnl; left TM also wnl) Mouth: + oral mucosal abnormality (MM very dry) Throat: no posterior oropharynx abnormality Neck: trachea midline, no thyromegaly Respiratory: normal respiratory effort, lungs clear to auscultation no respiratory distress Cardiovascular: Rate/Rhythm: regular rate and regular rhythm Heart Sounds: normal S1 and normal S2; no murmur Vessels: posterior tibial pulses present and dorsalis pedis pulses present; no JVD Extremities: + edema (trace b/l ) Gastrointestinal (Abdomen): Inspection/Auscultation: + abdomen distended and normal bowel sounds Percussion/Palpation: + abdomen tender (mild, mainly right side of abdomen); no guarding, abdomen not rigid, no hepatosplenomegaly and no abdominal mass Musculoskeletal: Extremities: strength 5/5 throughout and + clubbing ( fingernails); no cyanosis Skin: no rashes, warm and dry tattoos on arms Neurologic: deep tendon reflexes 2+ bilaterally and moves all extremities; no focal motor deficits Psychiatric: Orientation: alert and oriented x 3 Affect: + depressed affect Lymphatic: no cervical lymphadenopathy Results & Data Laboratory Results Laboratory Results - last 24 hr 06/16/18 06/16/18 06/16/18 05:24 05:41 05:41 WBC 12.87 H RBC 4.91 Hgb 13.9 L Hct 42.4 MCV 86.4 MCH 28.3 MCHC 32.8 RDW Std Deviation 64.5 H RDW Coeff of James 20.5 H Plt Count 168 MPV 9.2 Immature Gran % (Auto) 0.5 Neut % (Auto) 78.6 Lymph % (Auto) 13.8 [place] % (Auto) 6.6 Eos % (Auto) 0.4 Baso % (Auto) 0.1 Immature Gran # (Auto) 0.06 H Neut # (Auto) 10.12 H Lymph # (Auto) 1.78 [place] # (Auto) 0.85 H Eos # (Auto) 0.05 Baso # (Auto) 0.01 RBC Morphology Unremarkable ABG pH 7.53 H* ABG pCO2 29 L ABG pO2 76 L ABG HCO3 24 ABG O2 Saturation 96.5 H ABG Base Excess 2.0 H Doe Test Pos Barometric Pressure 726.8 Oxygen Given RA Sodium Potassium Chloride Carbon Dioxide Anion Gap BUN Creatinine Est Cr Clr Drug Dosing Est GFR ( Amer) Est GFR (Non-Af Amer) BUN/Creatinine Ratio Glucose Calcium Magnesium Total Bilirubin Direct Bilirubin AST ALT Alkaline Phosphatase Troponin I NT-Pro-B Natriuret Pep Total Protein Albumin Lipase Influenza Type A (PCR) Neg for Influ A Influenza Type B (PCR) Neg for Influ B 06/16/18 05:41 WBC RBC Hgb Hct MCV MCH MCHC RDW Std Deviation RDW Coeff of James Plt Count MPV Immature Gran % (Auto) Neut % (Auto) Lymph % (Auto) [place] % (Auto) Eos % (Auto) Baso % (Auto) Immature Gran # (Auto) Neut # (Auto) Lymph # (Auto) [place] # (Auto) Eos # (Auto) Baso # (Auto) RBC Morphology ABG pH ABG pCO2 ABG pO2 ABG HCO3 ABG O2 Saturation ABG Base Excess Doe Test Barometric Pressure Oxygen Given Sodium 136 Potassium 3.5 Chloride 103 Carbon Dioxide 26 Anion Gap 7.0 BUN 13 Creatinine 0.85 Est Cr Clr Drug Dosing 89.9 Est GFR ( Amer) 101.6 Est GFR (Non-Af Amer) 87.7 BUN/Creatinine Ratio 15.3 Glucose 142 H Calcium 9.1 Magnesium 1.6 L Total Bilirubin 0.5 Direct Bilirubin 0.2 AST 22 ALT 39 Alkaline Phosphatase 86 Troponin I < 0.015 NT-Pro-B Natriuret Pep 91 Total Protein 6.9 Albumin 3.2 L Lipase 156 Influenza Type A (PCR) Influenza Type B (PCR) Diagnostic Findings cxr - IMPRESSION: 1. Findings suggest emphysema. No focal infiltrate to suggest pneumonia. 2. Redemonstration of the paramediastinal right lower lobe and left lingular nodules consistent with the known sites of treated disease. EKG - my reading - NSR, no ST changes Code Status & VTE Plan Code Status level 1 full code VTE Prophylaxis Plan VTE Prophylaxis will be ordered: Yes _ (1) COPD (chronic obstructive pulmonary disease) COPD type: unspecified COPD Qualified Code(s): J44.9 - Chronic obstructive pulmonary disease, unspecified (2) Stage 4 lung cancer Laterality: unspecified laterality Qualified Code(s): C34.90 - Malignant neoplasm of unspecified part of unspecified bronchus or lung (3) Bladder cancer Bladder location: unspecified site Qualified Code(s): C67.9 - Malignant neoplasm of bladder, unspecified (4) Abdominal pain Abdominal location: lower abdomen, unspecified Qualified Code(s): R10.30 - Lower abdominal pain, unspecified
[2018-06-16] MEDS ORDERED: METHADONE HCL 5 MG TAB PO STA (08:36)
[2018-06-16] MEDS ORDERED: SODIUM CHLORIDE 0.9% 1000ML 1,000 ML IV SCH (09:51)
[2018-06-16] MEDS ORDERED: ALBUTEROL HFA 8 GM INHALER INH PRN (09:51)
[2018-06-16] MEDS ORDERED: OXYCODONE HCL IR 5 MG TAB (IMMEDIATE RELEASE) PO PRN (09:51)
[2018-06-16] MEDS ORDERED: POLYETHYLENE (MIRALAX) 17 GM PACK PO PRN (09:51)
[2018-06-16] MEDS ORDERED: NITROGLYCERIN SL 0.4 MG/TAB TAB SL PRN (09:51)
[2018-06-16] MEDS ORDERED: ACETAMINOPHEN 325 MG TAB PO PRN (09:51)
[2018-06-16] MEDS: ALBUT/IPRATROP 3MG/0.5MG NEB 3 ML VIAL NEB SCH ×3 (11:04→19:39)
[2018-06-16] MEDS: SENNA 8.6 MG TAB PO SCH ×2 (11:42→20:26)
[2018-06-16] MEDS: DOCUSATE SODIUM 100 MG CAP PO SCH ×2 (11:42→20:27)
[2018-06-16] MEDS: ONDANSETRON INJ 2 MG/ML 2 ML VIAL IV PRN (11:44)
[2018-06-16] MEDS: FINASTERIDE 5 MG TAB PO SCH (11:46)
[2018-06-16] MEDS: FLUDROCORTISONE ACETATE 0.1 MG TAB PO SCH (11:47)
[2018-06-16] MEDS: ASCORBIC ACID 500 MG TAB PO SCH (11:47)
[2018-06-16] MEDS: CHOLECALCIFEROL (VITAMIN D) 400 UNITS TABLET PO SCH (11:47)
[2018-06-16] MEDS: CETIRIZINE HCL 10 MG TABLET PO SCH (11:47)
[2018-06-16] MEDS: CYANOCOBALAMIN (VITAMIN B-12) 100 MCG TABLET PO SCH (11:48)
[2018-06-16] MEDS: BUDESONIDE/FORMOTEROL FUMARATE 160/4.5 60 PUFFS/INHALER INH SCH ×2 (11:49→20:27)
[2018-06-16] MEDS: POTASSIUM CHLORIDE 20 MEQ TABCR PO SCH (11:49)
[2018-06-16] MEDS: PYRIDOXINE HCL 50 MG TAB PO SCH (11:49)
[2018-06-16] MEDS: MAGNESIUM OXIDE 400 MG TAB PO SCH ×2 (11:50→20:27)
[2018-06-16] MEDS: TIOTROPIUM BROMIDE 5 PUFF/90 MCG INH INH SCH (11:51)
[2018-06-16 11:59] LABS: INR 1.1 (0.9-1.1); Prothrombin Time 10.7 Seconds (9.0-12.0)
[2018-06-16] MEDS: METHADONE HCL 10 MG TAB PO SCH ×3 (12:54→20:26)
[2018-06-16] MEDS: predniSONE 50 MG TAB PO SCH ×2 (12:54→17:35)
[2018-06-16] MEDS: ENOXAPARIN INJ 40 MG/0.4 ML SYR SQ SCH (13:37)
[2018-06-16] MEDS ORDERED: AMLODIPINE BESYLATE 5 MG TAB PO ONE (16:00)
[2018-06-16 16:16] LABS: Appearance Urine Cloudy (Clear); Bacteria Urine Automated Negative (Negative); Bilirubin Urine Negative (Negative); Color Urine Yellow; Epithelial Cell Urine Auto 20-30 /lpf (0-5); Glucose Urine UA Negative (Negative); Ketones Urine Negative (Negative); Leukocyte Esterase Urine Trace (Negative); Nitrite Urine Negative (Negative); Protein Urine Negative (Negative); Specific Gravity Urine 1.018 (1.000-1.030); Urobilinogen Urine Negative (Negative); pH Urine 7.5 (4.5-7.5)
[2018-06-16] MEDS ORDERED: IOVERSOL 100ml IV PRN (19:10)
--- NOTE | 2018-06-16 19:17 | Ultrasound Report ---
US venous doppler LE BI HISTORY: Pain. Edema. lung ca, bladder ca; edema; r/o DVT COMPARISON STUDY: None. FINDINGS: There is normal compressibility, flow, and augmentation within the bilateral lower extremit y deep venous systems. IMPRESSION: No DVT within the right or left lower extremity. The above report was generated using voice recognition software. It may contain grammatical, syntax or spelling errors. Electronically signed by: Amaury Sanchez M.D. 06/16/2018 7:16 PM
--- NOTE | 2018-06-16 19:39 | CT Scan Report ---
CT angio chest PE protocol CT DOSE: 1848.73 mGy.cm HISTORY: Dyspnea. Lung carcinoma. PE TECHNIQUE: Multiaxial CT images of the chest were performed following the intravenous administration of contrast to evaluate the pulmonary arteries. Maximal intensity projection images were also obtaine d. A dose lowering technique was utilized adhering to the principles of ALARA. COMPARISON STUDY: 08/27/2017 FINDINGS: The study specifically performed for pulmonary arterial vasculature evaluation. Atheroscler otic chronic change thoracic aorta. No evidence for aneurysm or focal dissection. The pulmonary vasculature enhances appropriately. There are no significant filling defects. Mildly pr ogressive mediastinal and hilar nodes with nodes in the aortopulmonary window measuring up to 1 cm an d in the pretracheal region measuring up to 1.1 cm. It is somewhat progressive from the prior exam. S lightly progressive sub uma adenopathy. Baseline emphysematous change of both hemithoraces is similar. Progressive masslike process considere d pleural-based medial aspect right base. This shows progressive destructive changes involving the T7 vertebral body as well as several posterior ribs on the right. There are also progressive masslike c hanges involving the left lung base at the level of the left major fissure. This exam again extends t o the pericardium as well as left pleural surface. Mild bibasilar atelectasis. There are several healing and/or healed rib fractures bilaterally which h ave been described previously. Bony metastatic change is slightly progressive primarily at T7. Compre ssion deformity of a midthoracic vertebral body is slightly progressive. Emphysematous change is stab le. IMPRESSION: 1. No evidence for pulmonary embolus. 2. Mildly progressive pulmonary metastatic disease as described. 3. Progressive erosive changes of the T7 vertebral body with slightly progressive compression deformi ty of T7. 4. In general, moderately progressive metastatic change throughout the chest as discussed. The above report was generated using voice recognition software. It may contain grammatical, syntax or spelling errors. Electronically signed by: Amaury Sanchez M.D. 06/16/2018 7:37 PM
--- NOTE | 2018-06-16 19:58 | CT Scan Report ---
CT abd pelvis oral and IV con CT DOSE: HISTORY: Pain lung ca, bladder ca, abd pain TECHNIQUE: Multiaxial CT images of the abdomen and pelvis were performed following the use of intrave nous and oral contrast. A dose lowering technique was utilized adhering to the principles of ALARA. COMPARISON STUDY: 09/06/2017. PET CT 9 12/02/2017. FINDINGS: Progressive metastatic and or neoplastic change of the lung bases which has been described previously. The thickening over the right hemidiaphragm is perhaps improved in visibility as compared to the chest CT again consistent with that of developing multifocal metastatic change. Liver is grossly unremarkable in terms of overall morphology. Spleen is unremarkable. No significant gastric distention. Bilateral renal cysts as well as parapelvic cysts are similar. The uroepithelial thickening produces described is again noted and is considered nonprogressive. 3 mm nonobstructing calcification lower aspect right kidney as well as a vascular calcification left mid kidney unchanged. Moderate infiltrative change of the perinephric fat bilaterally is perhaps slightly progressive. Sign ificance is difficult to ascertain given the patient's age category. Bowel pattern is considered nonobstructive. Suggestion of mild wall thickening of components of the t ransverse and descending colon. Mild pancreatic atrophy. Atherosclerotic change abdominal aorta as we ll as iliac vasculature unchanged. Mild chronic sigmoid diverticulosis with no evidence for acute div erticulitis. Stable prosthetic enlargement. Small bilateral fat-containing inguinal hernias. Right fl ank lipoma unchanged. Bowel pattern overall is nonobstructive. IMPRESSION: 1. Moderately progressive basilar pulmonary metastatic change as has been described previously. 2. Technical lack of distention of the colon due to minimal to no significant oral contrast versus mi ld colitis. 3. Additional incidental findings stable compared to the prior study. 4. Nonobstructive bowel pattern. 5. Stable bilateral renal cysts. The above report was generated using voice recognition software. It may contain grammatical, syntax or spelling errors. Electronically signed by: Amaury Sanchez M.D. 06/16/2018 7:56 PM
[2018-06-16] MEDS: ATORVASTATIN 40 MG TAB PO SCH (20:27)
[2018-06-16] MEDS: TERAZOSIN HCL 1 MG CAP PO SCH (20:27)
[2018-06-16] MEDS: OSELTAMIVIR PHOSPHATE 75 MG CAP PO SCH (20:55)
[2018-06-17 05:55] LABS: Hematocrit (blood only) 41.1 % (42-52); Hemoglobin 13.5 g/dL (14.0-18.0); Mean Corpuscular Hgb Conc 32.8 g/dL (32-36); Mean Corpuscular Volume 87.6 fL (80-100); Mean Platelet Volume 9.2 fL (7.4-10.4); Platelet Count 183 K/uL (130-400); RDW Standard Deviation 67.5 fL (36.4-46.3); Red Blood Count 4.69 M/uL (4.7-6.1)
[2018-06-17 06:27] LABS: BUN Creatinine Ratio 16.7 (10-20); Calcium 9.3 mg/dl (8.5-10.1); Creatinine Clr Calc Pharmacy 100.5 ml/min; Est GFR (African American) 106.4; Est GFR (Non-African American) 91.8; Magnesium 2.2 mg/dl (1.8-2.4); Potassium 3.9 mmol/L (3.5-5.1)
[2018-06-17] MEDS: ALBUT/IPRATROP 3MG/0.5MG NEB 3 ML VIAL NEB SCH ×2 (07:07→11:23)
[2018-06-17] MEDS: ONDANSETRON INJ 2 MG/ML 2 ML VIAL IV PRN ×2 (07:53→13:33)
[2018-06-17] MEDS ORDERED: PROMETHAZINE HCL 12.5 MG in SODIUM CHLORIDE 0.9% 50 ML IV PRN (08:14)
--- NOTE | 2018-06-17 08:58 | XRay Report ---
KUB HISTORY: vomiting; eval ileus, impaction, etc COMPARISON: Abdomen and pelvis CT 06/16/2018. FINDINGS: Distended loops of small bowel within the left side the abdomen. Some of the loops contain oral contrast which is not significantly changed. These measure up to 4 cm in diameter and favor a pa rtial small bowel obstruction. There is moderate well-formed stool seen within the colon. Contrast wi thin the bladder is noted. No renal calculi. No ureteral calculi. No pneumoperitoneum or pneumatosis . IMPRESSION: No significant change in the mildly distended loops of small bowel within the left side of the abdome n. This may represent a partial small bowel obstruction. Electronically signed by: Cameron Lee M.D. 06/17/2018 8:57 AM
[2018-06-17] MEDS: FINASTERIDE 5 MG TAB PO SCH (09:43)
[2018-06-17] MEDS: DOCUSATE SODIUM 100 MG CAP PO SCH ×2 (09:43→21:49)
[2018-06-17] MEDS: SENNA 8.6 MG TAB PO SCH ×2 (09:43→21:45)
[2018-06-17] MEDS: TIOTROPIUM BROMIDE 5 PUFF/90 MCG INH INH SCH (09:43)
[2018-06-17] MEDS: BUDESONIDE/FORMOTEROL FUMARATE 160/4.5 60 PUFFS/INHALER INH SCH ×2 (09:43→21:44)
[2018-06-17] MEDS: METHADONE HCL 10 MG TAB PO SCH ×4 (09:43→21:42)
[2018-06-17] MEDS: POTASSIUM CHLORIDE 20 MEQ TABCR PO SCH (09:43)
[2018-06-17] MEDS: FLUDROCORTISONE ACETATE 0.1 MG TAB PO SCH (09:43)
[2018-06-17] MEDS: MAGNESIUM OXIDE 400 MG TAB PO SCH ×2 (09:43→21:45)
[2018-06-17] MEDS: CETIRIZINE HCL 10 MG TABLET PO SCH (09:44)
[2018-06-17] MEDS: CYANOCOBALAMIN (VITAMIN B-12) 100 MCG TABLET PO SCH (09:44)
[2018-06-17] MEDS: CHOLECALCIFEROL (VITAMIN D) 400 UNITS TABLET PO SCH (09:44)
[2018-06-17] MEDS: ASCORBIC ACID 500 MG TAB PO SCH (09:44)
[2018-06-17] MEDS: PYRIDOXINE HCL 50 MG TAB PO SCH (09:44)
[2018-06-17] MEDS: OSELTAMIVIR PHOSPHATE 75 MG CAP PO SCH ×2 (09:44→21:44)
[2018-06-17] MEDS: ENOXAPARIN INJ 40 MG/0.4 ML SYR SQ SCH (13:32)
[2018-06-17] MEDS ORDERED: SODIUM CHLORIDE 0.9% 1000ML 1,000 ML IV ONE (14:58)
--- NOTE | 2018-06-17 15:29 | Gastrointestinal Consultation ---
Date of Consultation June 17, 2018 Assessment & Plan (1) Abdominal pain: 73 year old with metastatic lung CA, bladder CA on chronic methadone admitted w/ subjective fever/chills, abdominal pain, N/V and constipation. CT without evidence of obstruction, KUB w/ moderate stool and distended loops of small bowel. He had trial of PO this AM, but noted vomiting following. He was started on Tamiflu given presentation in the ED. DDX discussed: viral gastroenteritis vs partial SBO vs constipation in the setting of chronic narcotic usage. - Obtain old GI records and colonoscopy reports - Continue conservative measures - NPO --> clear liquids as tolerated - IVF maintenance - Antiemetics PRN - Analgesia PRN - Bentyl 10 mg TID PRN - Would recommend bowel regimen - Miralax 1 capful one to two times daily - Consider using Linzess or Movantik to combat narcotic effect on the bowel if symptoms persist - Thank you for allowing us to participate in the care of this patient. Please call with any acute changes, questions or concerns. Please see addendum below with additional recommendation from my supervising physician. Present on Admission?: Yes Supervising Physician Co-Signing Physician Notes I performed a history and physical examination of the patient, including specifically on physical exam - soft, nontender abdomen. I have discussed the patient's management with Rakel. Please refer to the nurse practitioner's note for the documented findings and plan of care. Opioid induced constipation, recommend laxatives and Movantik as needed. Recall GI if needed. History of Present Illness Reason for Consultation: abd pain Requesting Physician: Nuris Attending Physician: Sherif Lawler History of Present Illness 73 year old male with history of metastatic lung CA on Opdivo, high-grade urothelial carcinoma s/p TURBT, HTN, dyslipidemia, COPD, stroke who presents to the ED for evaluation of fever, chills, N/V, abdominal pain and constipation - GI was asked to evaluate the pt for his GI symptoms. Pt was seen and evaluated, chart reviewed. No family at bedside. He notes that he was in his typical state of health doing well on methadone and Opdivo. Recently, financial issues had lead to compliance issues with methadone. Suggests he ran out of medication on . Notes his pain had returned as expected. Yesterday AM he woke up from sleep with generalized abdominal pain, terrible nausea and vomiting. Notes his pain is generalized, worse in lower quadrants. Pain comes in waves. Sharp and cramping when occurs. Associated w/ nausea and vomiting. Bile. No black/bloody emesis. Endorses constipation. Which is typical. Will move bowels once every other day w/ straining. Denies any black/bloody stools. Has chills, fatigue. No fever. No body aches. No sick contacts. No CP, SOB. Lipase non elevated LFTs normal Flu A/B negative KUB: No significant change in the mildly distended loops of small bowel within the left side of the abdomen. This may represent a partial small bowel obstruction. CTA: No evidence for pulmonary embolus. Mildly progressive pulmonary metastatic disease as described. Progressive erosive changes of the T7 vertebral body with slightly progressive compression deformity of T7. 4. In general, moderately progressive metastatic change throughout the chest as discussed. CT: Moderately progressive basilar pulmonary metastatic change as has been described previously. Technical lack of distention of the colon due to minimal to no significant oral contrast versus mild colitis. Additional incidental findings stable compared to the prior study. Nonobstructive bowel pattern. Stable bilateral renal cysts. Colonoscopy 2014: per patient 3 polyps Colonoscopy 2009: per patient 9 polyps Allergies Allergy/AdvReac Type Severity Reaction Status Date / Time Bactrim Allergy Severe TONGUE Verified 12/02/17 08:11 SWELLS/FONG mupirocin Allergy Severe ANAPHYLAXIS Verified 06/16/18 06:02 sulfamethoxazole Allergy Severe TONGUE Verified 06/16/18 06:02 SWELLS/FONG trimethoprim Allergy Severe TONGUE Verified 06/16/18 06:02 SWELLS/FONG Iodinated Contrast- Oral and Allergy Intermediate HIVES/ITCHI Verified 06/16/18 06:02 IV Dye NG lisinopril Allergy Intermediate Tongue Verified 06/16/18 06:02 Swelling mustard Allergy Intermediate Hives, Verified 06/16/18 06:02 SOB, Itchy aspirin Allergy Mild ITCHY Verified 06/16/18 06:02 adhesive AdvReac Intermediate Tape - Rash Verified 06/16/18 06:02 Home Medications Home Medications Medication Instructions Recorded Confirmed Type Nebulizer Treatments 1 dose INHALATION QID 03/30/18 06/16/18 History albuterol sulfate 2 puff INHALATION Q4H PRN 03/30/18 06/16/18 History ascorbic acid (vitamin C) [Vitamin 1 g PO QAM 03/30/18 06/16/18 History C] atorvastatin 80 mg PO PM 03/30/18 06/16/18 History budesonide-formoterol [Symbicort] 2 puff INHALATION BID 03/30/18 06/16/18 History cetirizine 5 mg PO QAM 03/30/18 06/16/18 History cholecalciferol (vitamin D3) 400 unit PO QAM 03/30/18 06/16/18 History [Vitamin D3] cyanocobalamin (vitamin B-12) 100 mcg PO QAM 03/30/18 06/16/18 History [Vitamin B-12] docusate sodium 100 mg PO BID 03/30/18 06/16/18 History finasteride 5 mg PO QAM 03/30/18 06/16/18 History fludrocortisone 0.1 mg PO QAM 03/30/18 06/16/18 History magnesium oxide 420 mg PO BID 03/30/18 06/16/18 History methadone 10 mg PO QID 03/30/18 06/16/18 History pyridoxine (vitamin B6) [Vitamin 100 mg PO QAM 03/30/18 06/16/18 History B-6] sennosides 2 tabs PO BID PRN 03/30/18 06/16/18 History terazosin 2 mg PO QPM 03/30/18 06/16/18 History tiotropium bromide [Spiriva with 1 cap INHALATION QAM 03/30/18 06/16/18 History HandiHaler] potassium chloride 20 meq PO DAILY 06/16/18 06/16/18 History Patient History Social History marital status: marital status details: 1 son and 3 daughters Current Living Situation: Alone Current Living Situation Comment: lives in [place] current occupational status: retired current occupation: [employer] Feels Safe at Home: Yes Safety Concerns: Feels Safe At This Time Smoking Status: Current some day smoker Tobacco Type: cigarettes Cigarettes per Day: 1 ppd x 60 years; quit 1 month ago Hx Alcohol Use: Yes (quit 2017) Hx Substance Use: No Beliefs That Will Affect Care: None Communication Ability: Effective well-balanced diet: other caffeine: Yes (3 cups/day) during the past year weight has: decreased > 10 lbs Review of Systems Constitutional: + chills, + fatigue, + malaise and + weakness; no fever, no sweats, no body aches, no weight loss and no weight gain Respiratory: no cough, no chest congestion, no dyspnea, no dyspnea on exertion and no pain on inspiration Cardiovascular: no chest pain, no chest pain at rest, no dyspnea, no dyspnea on exertion and no palpitations Gastrointestinal: + abdominal pain, + bloating, + nausea, + vomiting, + cramping and + constipation (chronic); no belching, no early satiety, no heartburn, no coffee ground emesis, no hematemesis, no pain with swallowing, no dysphagia, no excessive flatulence, no change in bowel habits, no change in stools, no diarrhea/loose stools, no fecal incontinence, no constant urge to pass stools, no blood in stools and no melena Physical Exam 2 Vital Signs (Past 24 Hours): Last Vital Signs Temp 36.8 C 06/17/18 11:09 Pulse 112 H 06/17/18 11:09 Resp 17 06/17/18 11:09 BP 182/86 H 06/17/18 11:09 Pulse Ox 91 06/17/18 11:09 Constitutional: cooperative and comfortable; no acute distress Respiratory: normal respiratory effort, lungs clear to auscultation no respiratory distress Cardiovascular: RRR, no murmur, no edema Gastrointestinal (Abdomen): Inspection/Auscultation: + abdomen distended (mild , soft distention) and normal bowel sounds Percussion/Palpation: + abdomen tender and abdomen soft; no guarding and abdomen not rigid Skin: no rashes, warm and dry Results & Data Laboratory Results 06/17/18 06/17/18 06/16/18 Range/Units 05:27 05:27 17:57 WBC 14.20 H (4.8-10.8) K/uL RBC 4.69 L (4.7-6.1) M/uL Hgb 13.5 L (14.0-18.0) g/dL Hct 41.1 L (42-52) % MCV 87.6 (80-100) fL MCH 28.8 (25-34) pg MCHC 32.8 (32-36) g/dL RDW Std Deviation 67.5 H (36.4-46.3) fL RDW Coeff of James 21.0 H (11.5-14.5) % Plt Count 183 (130-400) K/uL MPV 9.2 (7.4-10.4) fL Sodium 137 (136-145) mmol/L Potassium 3.9 (3.5-5.1) mmol/L Chloride 103 (98-107) mmol/L Carbon Dioxide 29 (21-32) mmol/L Anion Gap 5.0 (3-11) BUN 13 (7-18) mg/dl Creatinine 0.76 (0.6-1.4) mg/dl Est Cr Clr Drug Dosing 100.5 ml/min Est GFR ( Amer) 106.4 Est GFR (Non-Af Amer) 91.8 BUN/Creatinine Ratio 16.7 (10-20) Glucose 127 H (70-99) mg/dl Calcium 9.3 (8.5-10.1) mg/dl Magnesium 2.2 (1.8-2.4) mg/dl Troponin I < 0.015 (0-0.045) ng/ml Urine Color Urine Appearance (Clear) Urine pH (4.5-7.5) Ur Specific [place] (1.000-1.030) Urine Protein (Negative) Urine Glucose (UA) (Negative) Urine Ketones (Negative) Urine Blood (Negative) Urine Nitrite (Negative) Urine Bilirubin (Negative) Urine Urobilinogen (Negative) Ur Leukocyte Esterase (Negative) Urine WBC (Auto) (0-5) /hpf Urine RBC (Auto) (0-4) /hpf U Hyaline Cast (Auto) (0-5) /lpf U Epithel Cells (Auto) (0-5) /lpf Urine Bacteria (Auto) (Negative) 06/16/18 Range/Units 15:45 WBC (4.8-10.8) K/uL RBC (4.7-6.1) M/uL Hgb (14.0-18.0) g/dL Hct (42-52) % MCV (80-100) fL MCH (25-34) pg MCHC (32-36) g/dL RDW Std Deviation (36.4-46.3) fL RDW Coeff of James (11.5-14.5) % Plt Count (130-400) K/uL MPV (7.4-10.4) fL Sodium (136-145) mmol/L Potassium (3.5-5.1) mmol/L Chloride (98-107) mmol/L Carbon Dioxide (21-32) mmol/L Anion Gap (3-11) BUN (7-18) mg/dl Creatinine (0.6-1.4) mg/dl Est Cr Clr Drug Dosing ml/min Est GFR ( Amer) Est GFR (Non-Af Amer) BUN/Creatinine Ratio (10-20) Glucose (70-99) mg/dl Calcium (8.5-10.1) mg/dl Magnesium (1.8-2.4) mg/dl Troponin I (0-0.045) ng/ml Urine Color Yellow Urine Appearance Cloudy H (Clear) Urine pH 7.5 (4.5-7.5) Ur Specific [place] 1.018 (1.000-1.030) Urine Protein Negative (Negative) Urine Glucose (UA) Negative (Negative) Urine Ketones Negative (Negative) Urine Blood Negative (Negative) Urine Nitrite Negative (Negative) Urine Bilirubin Negative (Negative) Urine Urobilinogen Negative (Negative) Ur Leukocyte Esterase Trace H (Negative) Urine WBC (Auto) 5-10 H (0-5) /hpf Urine RBC (Auto) 5-10 H (0-4) /hpf U Hyaline Cast (Auto) 1-5 (0-5) /lpf U Epithel Cells (Auto) 20-30 H (0-5) /lpf Urine Bacteria (Auto) Negative (Negative) _ (1) Abdominal pain Abdominal location: lower abdomen, unspecified Qualified Code(s): R10.30 - Lower abdominal pain, unspecified
[2018-06-17] MEDS: NSS + 20MEQ KCL 20 MEQ/1,000 ML BAG IV SCH (17:11)
--- NOTE | 2018-06-17 18:17 | Hospitalist Progress Note ---
Date of Service June 17, 2018 Assessment & Plan (1) Vomiting: Patient with ongoing vomiting. CT abd/pelvis yesterday without obstructive process. KUB x-rays today with ?pSBO? and moderate constipation. Will make NPO, continue IV fluids, and ask GI to see in consult for additional recommendations. Anti-emetics. Labs in am. Repeat x-rays in the AM as well. His overall clinical picture seems to be one of an infectious process ( subjective fevers, chills, headache, fatigue, lack of appetite, nausea, etc). viral gastroenteritis? (2) Abdominal pain: CT abd/pelvis without significant acute pathology. Repeat x-rays today with constipation and ?early partial SBO however the latter seems unlikely. GI consult requested for their opinion. NPO. IVF. Anti-emetics. Treat the constipation which is opiate-related. LFTs/lipase normal. Urine cx thus far negative. Some of his early symptoms could have been narcotic withdrawal but at this point , now that he has had 24+ hours of reinstitution of his narcotics, any ongoing symptoms are unlikely to be withdrawal. (3) Acute narcotic withdrawal: Patient was taking his methadone 4 times/day up until about 1 week ago, then cut it to once daily as his supply was running low. He did not call the heme/onc office because of lack of finances to get a refill. He then completely ran out 3 days prior to admission. I believe some of his symptoms were likely due to narcotic withdrawal but this should not be an issue at this point. (4) Generalized weakness: Clinical picture seems to be most c/w an infectious process. CT chest/abd/pelvis without a specific source for infection (no pneumonia, no gall bladder issue, no kidney stones, etc). Blood/urine cx's thus far neg. Flu PCR was negative, but many of his symptoms seem flu-like in nature, and thus we are empirically covering for flu with tamiflu. Complete 5 days of such. (5) Hypertensive urgency: BPs improved with one dose of amlodipine only. (6) Left sided chest pain: No known h/o CAD. Trops neg x 3. CTA chest neg for PE or pneumonia. Pain related to narcotic withdrawal? GI in origin? other? (7) Hypomagnesemia: resolved (8) Essential (primary) hypertension: This is in his medical record but he was not on meds for such at home. Given amlodipine x 1 with improved BPs. Follow- may need standing amlodipine. (9) COPD (chronic obstructive pulmonary disease): Does not appear to be in exacerbation. Cont symbicort, spiriva. (10) Stage 4 lung cancer: Followed by Dr. Anand, receiving Opdivo treatment. Last PET/CT in Jan 2018 showed progressive stage 4 disease. He has continued to lose weight since then suggesting advancing disease. CTs this admission with some progression of tumor burden. (11) Bladder cancer: history of such s/p TURBT multiple times. urine cx neg to date. (12) Severe protein-calorie malnutrition: 50+ pound weight loss in the last few months due to stage 4 cancer MVI, boost, etc once able to take PO (13) DVT prophylaxis: lovenox daily will need PT, OT Subjective patient continues to feel very poorly. still with chills, fatigue, headache, nausea, emesis. has had at least 2 episodes of emesis this AM/early afternoon after attempting to eat. he had not vomited overnight. emesis was ?bilious in nature? some flatus, no diarrhea or stool. last BM was just prior to coming to the hospital. no significant cough or pulmonary symptoms. tele stable overnight. Constitutional: + fever (subjective), + chills, + fatigue, + malaise and + weakness Ear, Nose, Mouth, Throat: no sore throat Respiratory: no cough and no dyspnea Cardiovascular: no chest pain Gastrointestinal: + abdominal pain, + nausea, + vomiting and + constipation; no diarrhea/loose stools Physical Exam 2 Vital Signs (Past 24 Hours): Last Vital Signs Temp 36.6 C 06/17/18 15:24 Pulse 97 H 06/17/18 15:24 Resp 20 06/17/18 15:24 BP 160/84 H 06/17/18 15:24 Pulse Ox 91 06/17/18 15:24 Constitutional: + ill appearing and average body habitus; no acute distress ENMT: Mouth: + oral mucosal abnormality (mucous membranes dry) Respiratory: normal respiratory effort, lungs clear to auscultation Cardiovascular: RRR, no murmur, no edema Heart Sounds: normal S1 and normal S2 Vessels: posterior tibial pulses present and dorsalis pedis pulses present; no JVD Gastrointestinal (Abdomen): Inspection/Auscultation: abdomen normal to inspection, + abdomen distended (minimal ) and normal bowel sounds Percussion /Palpation: + abdomen tender (right side of abdomen - minimal ); no guarding, abdomen not rigid and no hepatosplenomegaly Psychiatric: Orientation: alert and oriented x 3 Affect: + flat affect Results & Data Laboratory Results Laboratory Results - last 24 hr 06/16/18 06/17/18 06/17/18 17:57 05:27 05:27 WBC 14.20 H RBC 4.69 L Hgb 13.5 L Hct 41.1 L MCV 87.6 MCH 28.8 MCHC 32.8 RDW Std Deviation 67.5 H RDW Coeff of James 21.0 H Plt Count 183 MPV 9.2 Sodium 137 Potassium 3.9 Chloride 103 Carbon Dioxide 29 Anion Gap 5.0 BUN 13 Creatinine 0.76 Est Cr Clr Drug Dosing 100.5 Est GFR ( Amer) 106.4 Est GFR (Non-Af Amer) 91.8 BUN/Creatinine Ratio 16.7 Glucose 127 H Calcium 9.3 Magnesium 2.2 Troponin I < 0.015 _ (1) Bladder cancer Bladder location: unspecified site Qualified Code(s): C67.9 - Malignant neoplasm of bladder, unspecified (2) Stage 4 lung cancer Laterality: unspecified laterality Qualified Code(s): C34.90 - Malignant neoplasm of unspecified part of unspecified bronchus or lung (3) COPD (chronic obstructive pulmonary disease) COPD type: unspecified COPD Chronic bronchitis type: Emphysema type: Qualified Code(s): J44.9 - Chronic obstructive pulmonary disease, unspecified (4) Abdominal pain Abdominal location: lower abdomen, unspecified Qualified Code(s): R10.30 - Lower abdominal pain, unspecified (5) Vomiting Vomiting type: unspecified Vomiting Intractability: non-intractable Nausea presence: with nausea Qualified Code(s): R11.2 - Nausea with vomiting, unspecified
[2018-06-17] MEDS: ALBUTEROL 0.083% NEBU SOLN 3 ML VIAL NEB SCH (19:19)
[2018-06-17] MEDS: TERAZOSIN HCL 1 MG CAP PO SCH (21:43)
[2018-06-17] MEDS: ATORVASTATIN 40 MG TAB PO SCH (21:43)
[2018-06-18] MEDS: NSS + 20MEQ KCL 20 MEQ/1,000 ML BAG IV SCH ×3 (00:36→17:09)
[2018-06-18 06:56] LABS: Eosinophils # (auto) 0.01 K/uL (0-0.5); Eosinophils % (auto) 0.1 %; Hematocrit (blood only) 40.2 % (42-52); Hemoglobin 12.6 g/dL (14.0-18.0); Immature Granulocytes # (auto) 0.03 K/uL (0.00-0.02); Immature Granulocytes % (auto) 0.2 %; Lymphocytes # (auto) 2.08 K/uL (1.2-3.4); Lymphocytes % (auto) 16.7 %; Mean Corpuscular Hgb Conc 31.3 g/dL (32-36); Mean Corpuscular Volume 89.5 fL (80-100); Mean Platelet Volume 8.9 fL (7.4-10.4); Monocytes # (auto) 1.05 K/uL (0.11-0.59); Monocytes % (auto) 8.5 %; Neutrophils # (auto) 9.25 K/uL (1.4-6.5); Neutrophils % (auto) 74.5 %; Platelet Count 158 K/uL (130-400); RDW Coefficient of Variation 21.5 % (11.5-14.5); Red Blood Count 4.49 M/uL (4.7-6.1); White Blood Count 12.42 K/uL (4.8-10.8)
[2018-06-18] MEDS: ALBUTEROL 0.083% NEBU SOLN 3 ML VIAL NEB SCH ×2 (07:09→19:39)
[2018-06-18 07:16] LABS: Anisocytosis Present
[2018-06-18 07:25] LABS: BUN Creatinine Ratio 21.4 (10-20); Calcium 8.3 mg/dl (8.5-10.1); Creatinine Clr Calc Pharmacy 87.5 ml/min; Est GFR (African American) 102.1; Est GFR (Non-African American) 88.1; Potassium 3.6 mmol/L (3.5-5.1)
--- NOTE | 2018-06-18 08:19 | XRay Report ---
XR abdomen min 2V CLINICAL HISTORY: Constipation, possible bowel obstruction COMPARISON STUDY: 06/17/2018 FINDINGS: There is gas present with multiple small bowel loops which are the upper limits of normal i n size. There is no conventional radiographic evidence of a high-grade bowel obstruction. There is sc attered stool within the colon. IMPRESSION: Mildly prominent small bowel loops. No conventional radiographic evidence of a high-grad e bowel obstruction. Electronically signed by: Shen Orona M.D. 06/18/2018 8:18 AM
[2018-06-18] MEDS: METHADONE HCL 10 MG TAB PO SCH ×4 (08:58→20:46)
[2018-06-18] MEDS: OSELTAMIVIR PHOSPHATE 75 MG CAP PO SCH ×2 (09:01→20:46)
[2018-06-18] MEDS: POTASSIUM CHLORIDE 20 MEQ TABCR PO SCH (09:01)
[2018-06-18] MEDS: CETIRIZINE HCL 10 MG TABLET PO SCH (09:03)
[2018-06-18] MEDS: SENNA 8.6 MG TAB PO SCH ×2 (09:05→20:45)
[2018-06-18] MEDS: PYRIDOXINE HCL 50 MG TAB PO SCH (09:08)
[2018-06-18] MEDS: FINASTERIDE 5 MG TAB PO SCH (09:08)
[2018-06-18] MEDS: CYANOCOBALAMIN (VITAMIN B-12) 100 MCG TABLET PO SCH (09:09)
[2018-06-18] MEDS: CHOLECALCIFEROL (VITAMIN D) 400 UNITS TABLET PO SCH (09:09)
[2018-06-18] MEDS: ASCORBIC ACID 500 MG TAB PO SCH (09:09)
[2018-06-18] MEDS: MAGNESIUM OXIDE 400 MG TAB PO SCH ×2 (09:10→20:46)
[2018-06-18] MEDS: FLUDROCORTISONE ACETATE 0.1 MG TAB PO SCH (09:10)
[2018-06-18] MEDS: BUDESONIDE/FORMOTEROL FUMARATE 160/4.5 60 PUFFS/INHALER INH SCH ×2 (09:10→20:45)
[2018-06-18] MEDS: TIOTROPIUM BROMIDE 5 PUFF/90 MCG INH INH SCH (09:11)
[2018-06-18] MEDS: DOCUSATE SODIUM 100 MG CAP PO SCH ×2 (09:14→20:47)
[2018-06-18] MEDS: ENOXAPARIN INJ 40 MG/0.4 ML SYR SQ SCH (12:51)
--- NOTE | 2018-06-18 20:18 | Hospitalist Progress Note ---
Date of Service June 18, 2018 Assessment & Plan (1) Vomiting: Resolved. Uncertain etiology. This could have been due to a viral gastroenteritis. Alternatively some of the vomiting could have been from narcotic withdrawal. Lastly constipation from chronic narcotic use could have contributed. Either way it is resolved. X-rays today are acceptable. Clears were started this am and will advance to full liquids w/ dinner if tolerating. Cut fluid rate to 50cc/hr. (2) Abdominal pain: CT abd/pelvis without significant acute pathology. LFTs, u/a, and lipase all wnl. Uncertain if related to a viral GI illness vs influenza vs constipation vs ileus vs other. Either way this, too, is improved. x-rays today stable. (3) Acute narcotic withdrawal: Patient was taking his methadone 4 times/day up until about 1 week ago, then cut it to once daily as his supply was running low. He did not call the heme/onc office because of lack of finances to get a refill. He then completely ran out 3 days prior to admission. I believe some of his symptoms at admission were likely due to narcotic withdrawal.. The withdrawal has resolved. (4) Generalized weakness: Clinical picture seems to be most c/w an infectious process. CT chest/abd/pelvis without a specific source for infection (no pneumonia, no gall bladder issue, no kidney stones, etc). Blood/urine cx's thus far neg. Flu PCR was negative, but many of his symptoms seem flu-like in nature, and thus we are empirically covering for flu with tamiflu. Complete 5 days of such. Day #3 today. Continue droplet precautions. (5) Hypertensive urgency: BPs improved/stable. He never had end-organ symptoms that would have been c/w hypertensive emergency. His chest pain was likely due to narcotic withdrawal. (6) Left sided chest pain: No known h/o CAD. Trops neg x 3. CTA chest neg for PE or pneumonia. Pain was either related to his GI illness or due to narcotic withdrawal. No recurrent symptoms since. (7) Hypomagnesemia: resolved (8) Essential (primary) hypertension: Will continue amlodipine 5mg daily. (9) COPD (chronic obstructive pulmonary disease): Controlled. Cont symbicort, spiriva. (10) Stage 4 lung cancer: Followed by Dr. Anand, receiving Opdivo treatment. Last PET/CT in Jan 2018 showed progressive stage 4 disease. He has continued to lose weight since then suggesting advancing disease. CTs this admission with some progression of tumor burden. (11) Bladder cancer: history of such s/p TURBT multiple times. urine cx neg to date. (12) Severe protein-calorie malnutrition: 50+ pound weight loss in the last few months due to stage 4 cancer Start MVI and boost. (13) DVT prophylaxis: lovenox daily PT, OT I am pleased w/ his progress Subjective patient feels "MUCH BETTER!" no headache, cp, dyspnea, cough no abd pain nausea/vomiting have stopped tolerating clears this am much more energy overall his chronic pain is improved Constitutional: no fever, no chills, no body aches, no fatigue and no anorexia Respiratory: no cough and no dyspnea Cardiovascular: no chest pain Gastrointestinal: + constipation; no abdominal pain, no nausea, no vomiting and no diarrhea/loose stools Physical Exam 2 Vital Signs (Past 24 Hours): Last Vital Signs Temp 36.3 C L 06/18/18 19:47 Pulse 70 06/18/18 19:47 Resp 16 06/18/18 19:47 BP 155/81 H 06/18/18 19:47 Pulse Ox 95 06/18/18 19:47 Constitutional: well developed and well nourished; no acute distress looks much better today ENMT: external ear and nose normal, oropharynx normal Respiratory: normal respiratory effort, lungs clear to auscultation Cardiovascular: RRR, no murmur, no edema Heart Sounds: normal S1 and normal S2 Vessels: posterior tibial pulses present and dorsalis pedis pulses present; no JVD Gastrointestinal (Abdomen): normal bowel sounds, soft, nontender, no hepatosplenomegaly Skin: no rashes, warm and dry numerous tattoos Psychiatric: A+Ox3, euthymic affect Results & Data Laboratory Results Laboratory Results - last 24 hr 06/18/18 06/18/18 06:31 06:31 WBC 12.42 H RBC 4.49 L Hgb 12.6 L Hct 40.2 L MCV 89.5 MCH 28.1 MCHC 31.3 L RDW Std Deviation 71.0 H RDW Coeff of James 21.5 H Plt Count 158 MPV 8.9 Immature Gran % (Auto) 0.2 Neut % (Auto) 74.5 Lymph % (Auto) 16.7 [place] % (Auto) 8.5 Eos % (Auto) 0.1 Baso % (Auto) 0.0 Immature Gran # (Auto) 0.03 H Neut # (Auto) 9.25 H Lymph # (Auto) 2.08 [place] # (Auto) 1.05 H Eos # (Auto) 0.01 Baso # (Auto) 0.00 Anisocytosis Present Sodium 140 Potassium 3.6 Chloride 108 H Carbon Dioxide 26 Anion Gap 6.0 BUN 18 Creatinine 0.84 Est Cr Clr Drug Dosing 87.5 Est GFR ( Amer) 102.1 Est GFR (Non-Af Amer) 88.1 BUN/Creatinine Ratio 21.4 H Glucose 81 Calcium 8.3 L _ (1) Vomiting Vomiting type: unspecified Vomiting Intractability: non-intractable Nausea presence: with nausea Qualified Code(s): R11.2 - Nausea with vomiting, unspecified (2) Abdominal pain Abdominal location: lower abdomen, unspecified Qualified Code(s): R10.30 - Lower abdominal pain, unspecified (3) COPD (chronic obstructive pulmonary disease) COPD type: unspecified COPD Chronic bronchitis type: Emphysema type: Qualified Code(s): J44.9 - Chronic obstructive pulmonary disease, unspecified (4) Stage 4 lung cancer Laterality: unspecified laterality Qualified Code(s): C34.90 - Malignant neoplasm of unspecified part of unspecified bronchus or lung (5) Bladder cancer Bladder location: unspecified site Qualified Code(s): C67.9 - Malignant neoplasm of bladder, unspecified
[2018-06-18] MEDS: ATORVASTATIN 40 MG TAB PO SCH (20:45)
[2018-06-18] MEDS: TERAZOSIN HCL 1 MG CAP PO SCH (20:46)
[2018-06-19] MEDS: AMLODIPINE BESYLATE 5 MG TAB PO SCH ×2 (01:23→21:14)
[2018-06-19 06:02] LABS: Hematocrit (blood only) 39.9 % (42-52); Hemoglobin 12.6 g/dL (14.0-18.0); Mean Corpuscular Hgb Conc 31.6 g/dL (32-36); Mean Corpuscular Volume 88.9 fL (80-100); Mean Platelet Volume 9.3 fL (7.4-10.4); Platelet Count 146 K/uL (130-400); RDW Coefficient of Variation 20.9 % (11.5-14.5); RDW Standard Deviation 68.4 fL (36.4-46.3); Red Blood Count 4.49 M/uL (4.7-6.1); White Blood Count 7.59 K/uL (4.8-10.8)
[2018-06-19 06:39] LABS: BUN Creatinine Ratio 16.1 (10-20); Calcium 8.2 mg/dl (8.5-10.1); Est GFR (African American) 108.8; Est GFR (Non-African American) 93.9; Potassium 3.5 mmol/L (3.5-5.1)
[2018-06-19] MEDS: ALBUTEROL 0.083% NEBU SOLN 3 ML VIAL NEB SCH ×2 (07:11→19:05)
[2018-06-19] MEDS: CEROVITE ADV FORMULA TAB PO SCH (08:52)
[2018-06-19] MEDS: BUDESONIDE/FORMOTEROL FUMARATE 160/4.5 60 PUFFS/INHALER INH SCH ×2 (08:52→21:15)
[2018-06-19] MEDS: MAGNESIUM OXIDE 400 MG TAB PO SCH ×2 (08:53→21:15)
[2018-06-19] MEDS: ASCORBIC ACID 500 MG TAB PO SCH (08:53)
[2018-06-19] MEDS: CHOLECALCIFEROL (VITAMIN D) 400 UNITS TABLET PO SCH (08:53)
[2018-06-19] MEDS: FLUDROCORTISONE ACETATE 0.1 MG TAB PO SCH (08:53)
[2018-06-19] MEDS: OSELTAMIVIR PHOSPHATE 75 MG CAP PO SCH ×2 (08:53→21:16)
[2018-06-19] MEDS: TIOTROPIUM BROMIDE 5 PUFF/90 MCG INH INH SCH (08:53)
[2018-06-19] MEDS: FINASTERIDE 5 MG TAB PO SCH (08:53)
[2018-06-19] MEDS: PYRIDOXINE HCL 50 MG TAB PO SCH (08:53)
[2018-06-19] MEDS: POTASSIUM CHLORIDE 20 MEQ TABCR PO SCH (08:54)
[2018-06-19] MEDS: CETIRIZINE HCL 10 MG TABLET PO SCH (08:54)
[2018-06-19] MEDS: SENNA 8.6 MG TAB PO SCH ×2 (08:54→21:15)
[2018-06-19] MEDS: CYANOCOBALAMIN (VITAMIN B-12) 100 MCG TABLET PO SCH (08:55)
[2018-06-19] MEDS: METHADONE HCL 10 MG TAB PO SCH ×4 (08:57→21:14)
[2018-06-19] MEDS: DOCUSATE SODIUM 100 MG CAP PO SCH ×2 (08:57→21:14)
[2018-06-19] MEDS: NSS + 20MEQ KCL 20 MEQ/1,000 ML BAG IV SCH (12:38)
[2018-06-19] MEDS: ENOXAPARIN INJ 40 MG/0.4 ML SYR SQ SCH (12:38)
[2018-06-19] MEDS: ATORVASTATIN 40 MG TAB PO SCH (21:14)
[2018-06-19] MEDS: TERAZOSIN HCL 1 MG CAP PO SCH (21:14)
--- NOTE | 2018-06-19 21:52 | Hospitalist Progress Note ---
Date of Service June 19, 2018 Assessment & Plan (1) Vomiting: Resolved. This could have been due to a viral gastroenteritis. Alternatively some of the vomiting could have been from narcotic withdrawal. Lastly constipation from chronic narcotic use could have contributed. Tolerating full liquids; advance to regular diet today. Can stop fluids. (2) Abdominal pain: CT abd/pelvis without significant acute pathology. LFTs, u/a, and lipase all wnl. Uncertain if related to a viral GI illness vs influenza vs constipation vs ileus vs other. Acute pain is resolved. Has LUQ abd pain - he reports it is chronic - could be due to lung mets. Cont chronic methadone therapy. (3) Acute narcotic withdrawal: Resolved. Cont methadone 10mg qid as previous. This is prescribed by his primary oncologist for cancer pain (Dr. Anand). (4) Generalized weakness: Clinical picture at admission was most c/w an infectious process. CT chest/abd/pelvis without a specific source for infection (no pneumonia, no gall bladder issue, no kidney stones, etc) however. Blood/urine cx's negative. Flu PCR was negative, but many of his symptoms seemed flu-like in nature, and thus we have empirically covered for flu with tamiflu. Complete 5 days of such. Day #4 today. Continue droplet precautions. (5) Hypertensive urgency: BPs improved/stable. He never had end-organ symptoms that would have been c/w hypertensive emergency. His chest pain was likely due to narcotic withdrawal. (6) Left sided chest pain: No known h/o CAD. Trops neg x 3. CTA chest neg for PE or pneumonia. Pain was either related to his GI illness or due to narcotic withdrawal. No recurrent symptoms since. (7) Hypomagnesemia: resolved (8) Essential (primary) hypertension: Will continue amlodipine 5mg daily. (9) COPD (chronic obstructive pulmonary disease): Controlled. Cont symbicort, spiriva. (10) Stage 4 lung cancer: Followed by Dr. Anand, receiving Opdivo treatment. Last PET/CT in Jan 2018 showed progressive stage 4 disease. He has continued to lose weight since then suggesting advancing disease. CTs this admission with some progression of tumor burden. Will need f/u with Dr. Anand shortly after discharge. (11) Bladder cancer: history of such s/p TURBT multiple times. urine cx negative. (12) Severe protein-calorie malnutrition: 50+ pound weight loss in the last few months due to stage 4 cancer MVI and boost. 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 I spoke with social work about possibility of securing him a ride/taxi at discharge due to lack of transportation hopefully d/c home on Thursday Subjective patient feels well tele normal overnight had stool this am - some of it was loose, rest was formed also had 2 BMs yesterday ate 100% of breakfast this am no nausea no emesis no sweats or chills reports he will not be able to secure a ride home his only relative is his sister - she does live local but doesn't drive he also believes his [facility] check has been sent to his home and this will allow him to purchase his methadone prescription Constitutional: no fever, no chills, no fatigue and no anorexia Respiratory: no cough and no dyspnea Cardiovascular: no chest pain Gastrointestinal: + abdominal pain (LUQ - chronic) Physical Exam 2 Vital Signs (Past 24 Hours): Last Vital Signs Temp 36.6 C 06/19/18 19:34 Pulse 79 06/19/18 19:34 Resp 16 06/19/18 19:34 BP 112/74 06/19/18 19:34 Pulse Ox 94 06/19/18 19:34 Constitutional: well developed, well nourished and average body habitus; no acute distress ENMT: Ears: + external ear abnormality (right ear) Mouth: no oropharynx abnormality and no oral mucosal abnormality Neck: trachea midline, no thyromegaly Respiratory: normal respiratory effort, lungs clear to auscultation no respiratory distress Cardiovascular: RRR, no murmur, no edema Heart Sounds: normal S1 and normal S2; no murmur Vessels: posterior tibial pulses present and dorsalis pedis pulses present; no JVD Extremities: no edema Gastrointestinal (Abdomen): normal bowel sounds, soft, nontender, no hepatosplenomegaly Inspection/Auscultation: + abdomen distended (minimal ) Musculoskeletal: Extremities: strength 5/5 throughout and + clubbing ( fingernails); no cyanosis Skin: no rashes, warm and dry Neurologic: no focal motor deficits Psychiatric: A+Ox3, euthymic affect Results & Data Laboratory Results Laboratory Results - last 24 hr 06/19/18 06/19/18 06/19/18 05:30 05:30 08:53 WBC 7.59 RBC 4.49 L Hgb 12.6 L Hct 39.9 L MCV 88.9 MCH 28.1 MCHC 31.6 L RDW Std Deviation 68.4 H RDW Coeff of James 20.9 H Plt Count 146 MPV 9.3 Sodium 141 Potassium 3.5 Chloride 108 H Carbon Dioxide 29 Anion Gap 4.0 BUN 12 Creatinine 0.72 Est Cr Clr Drug Dosing 102.0 Est GFR ( Amer) 108.8 Est GFR (Non-Af Amer) 93.9 BUN/Creatinine Ratio 16.1 Glucose 69 L Calcium 8.2 L Random Cortisol 8.91 _ (1) Bladder cancer Bladder location: unspecified site Qualified Code(s): C67.9 - Malignant neoplasm of bladder, unspecified (2) Stage 4 lung cancer Laterality: unspecified laterality Qualified Code(s): C34.90 - Malignant neoplasm of unspecified part of unspecified bronchus or lung (3) COPD (chronic obstructive pulmonary disease) COPD type: unspecified COPD Chronic bronchitis type: Emphysema type: Qualified Code(s): J44.9 - Chronic obstructive pulmonary disease, unspecified (4) Abdominal pain Abdominal location: lower abdomen, unspecified Qualified Code(s): R10.30 - Lower abdominal pain, unspecified (5) Vomiting Nausea presence: with nausea Vomiting Intractability: non-intractable Vomiting type: unspecified Qualified Code(s): R11.2 - Nausea with vomiting, unspecified
[2018-06-20] MEDS: ALBUTEROL 0.083% NEBU SOLN 3 ML VIAL NEB SCH (07:11)
[2018-06-20] MEDS: BUDESONIDE/FORMOTEROL FUMARATE 160/4.5 60 PUFFS/INHALER INH SCH (08:43)
[2018-06-20] MEDS: DOCUSATE SODIUM 100 MG CAP PO SCH (08:43)
[2018-06-20] MEDS: MAGNESIUM OXIDE 400 MG TAB PO SCH (08:44)
[2018-06-20] MEDS: CETIRIZINE HCL 10 MG TABLET PO SCH (08:44)
[2018-06-20] MEDS: CHOLECALCIFEROL (VITAMIN D) 400 UNITS TABLET PO SCH (08:44)
[2018-06-20] MEDS: FINASTERIDE 5 MG TAB PO SCH (08:44)
[2018-06-20] MEDS: CEROVITE ADV FORMULA TAB PO SCH (08:44)
[2018-06-20] MEDS: PYRIDOXINE HCL 50 MG TAB PO SCH (08:45)
[2018-06-20] MEDS: POTASSIUM CHLORIDE 20 MEQ TABCR PO SCH (08:45)
[2018-06-20] MEDS: OSELTAMIVIR PHOSPHATE 75 MG CAP PO SCH (08:45)
[2018-06-20] MEDS: SENNA 8.6 MG TAB PO SCH (08:45)
[2018-06-20] MEDS: CYANOCOBALAMIN (VITAMIN B-12) 100 MCG TABLET PO SCH (08:45)
[2018-06-20] MEDS: ASCORBIC ACID 500 MG TAB PO SCH (08:46)
[2018-06-20] MEDS: TIOTROPIUM BROMIDE 5 PUFF/90 MCG INH INH SCH (08:46)
[2018-06-20] MEDS: FLUDROCORTISONE ACETATE 0.1 MG TAB PO SCH (08:47)
[2018-06-20] MEDS: METHADONE HCL 10 MG TAB PO SCH (08:52)
--- NOTE | 2018-06-20 10:26 | Discharge Summary ---
Date of Service June 20, 2018 Admission HPI Per Admitting Provider 73yo male with history of lung cancer, currently on Opdivo therapy, as well as bladder cancer and COPD - presents with acute onset of nausea, emesis, subjective fever, chills, and shortness of breath beginning about 0230 this am. Feels very tired/fatigued. No myalgias. Minimal cough. Reports chronic abdominal pain and b/l shoulder pain. He is on methadone for chronic pain related to his cancer and ran out of it on 06/13/18. He typically takes it QID but started "rationing" it on 06/08/18 by taking it just once daily. No sick contacts. No recent travel. Last chemo was on 06/08/18. He denies any dyspnea earlier this week at home. Denies any pain in his legs. When asked what his main complaint(s) is/are he states "my throat" then says it is chest and his breathing. Principal Diagnosis Flulike symptoms, narcotic withdrawal Discharge Exam Constitutional WD/WN, vitals as above Eyes PERRL, conjunctivae normal, anicteric sclerae ENMT external ear and nose normal, oropharynx normal Neck trachea midline, no thyromegaly Respiratory normal respiratory effort, lungs clear to auscultation Cardiovascular RRR, no murmur, no edema Gastrointestinal (Abdomen) normal bowel sounds, soft, nontender, no hepatosplenomegaly Inspection/Auscultation: + abdomen abnormal to inspection (Large lipoma palpated on the right flank; positive diastases recti) Musculoskeletal Extremities: extremities normal to inspection; no cyanosis and no clubbing Skin no rashes, warm and dry Neurologic moves all extremities and awake; no focal motor deficits Psychiatric A+Ox3, euthymic affect Discharge Data Allergies Allergy/AdvReac Type Severity Reaction Status Date / Time Bactrim Allergy Severe TONGUE Verified 12/02/17 08:11 SWELLS/FONG mupirocin Allergy Severe ANAPHYLAXIS Verified 06/16/18 06:02 sulfamethoxazole Allergy Severe TONGUE Verified 06/16/18 06:02 SWELLS/FONG trimethoprim Allergy Severe TONGUE Verified 06/16/18 06:02 SWELLS/FONG Iodinated Contrast- Oral and Allergy Intermediate HIVES/ITCHI Verified 06/16/18 06:02 IV Dye NG lisinopril Allergy Intermediate Tongue Verified 06/16/18 06:02 Swelling mustard Allergy Intermediate Hives, Verified 06/16/18 06:02 SOB, Itchy aspirin Allergy Mild ITCHY Verified 06/16/18 06:02 adhesive AdvReac Intermediate Tape - Rash Verified 06/16/18 06:02 Consultations 06/16/18 07:23 ED Decision to Admit Stat 06/17/18 15:03 Consult Gastroenterology Routine Ordered Studies 06/16/18 08:36 US venous doppler LE BI Stat 06/16/18 19:00 CT abd pelvis oral and IV con Routine CT angio chest PE protocol Routine KUB Abdomen series x-ray Chest x-ray x2 Hospital Course (1) Vomiting: Resolved. This could have been due to a viral gastroenteritis. Alternatively some of the vomiting could have been from narcotic withdrawal. Lastly constipation from chronic narcotic use could have contributed. Constipation now resolved Tolerating a regular diet by the time of discharge IV fluids were stopped His methadone was restarted and he is doing well Stable for discharge to home (2) Abdominal pain: CT abd/pelvis without significant acute pathology. LFTs, u/a, and lipase all wnl. Uncertain if related to a viral GI illness vs influenza vs constipation vs ileus vs other. Acute pain is resolved. Has LUQ abd pain - he reports it is chronic - could be due to lung mets. Cont chronic methadone therapy. (3) Acute narcotic withdrawal: Resolved. Cont methadone 10mg qid as previous. This is prescribed by his primary oncologist for cancer pain (Dr. Anand). He was given 4 tablets from the hospital pharmacy prior to discharge to bridge him until he can get his usual methadone prescription filled tomorrow. (4) Generalized weakness: Clinical picture at admission was most c/w an infectious process. CT chest/abd/pelvis without a specific source for infection (no pneumonia, no gall bladder issue, no kidney stones, etc) however. Blood/urine cx's negative. Flu PCR was negative, but many of his symptoms seemed flu-like in nature, and thus we have empirically covered for flu with tamiflu. Complete 5 days of such. Needs 1 more day after discharge Symptoms completely resolved (5) Hypertensive urgency: BPs improved/stable. Was started on amlodipine 5 mg p.o. nightly He never had end-organ symptoms that would have been c/w hypertensive emergency. His chest pain was likely due to narcotic withdrawal. (6) Left sided chest pain: No known h/o CAD. Trops neg x 3. CTA chest neg for PE or pneumonia. Pain was either related to his GI illness or due to narcotic withdrawal. No recurrent symptoms since. (7) Hypomagnesemia: resolved -Continue p.o. magnesium at home (8) Essential (primary) hypertension: Will continue amlodipine 5mg daily. (9) COPD (chronic obstructive pulmonary disease): Controlled. Cont symbicort, spiriva. (10) Stage 4 lung cancer: Followed by Dr. Anand, receiving Opdivo treatment. Last PET/CT in Jan 2018 showed progressive stage 4 disease. He has continued to lose weight since then suggesting advancing disease. CTs this admission with some progression of tumor burden. Will need f/u with Dr. Anand shortly after discharge. (11) Bladder cancer: history of such s/p TURBT multiple times. urine cx negative. Continues on finasteride and terazosin (12) Severe protein-calorie malnutrition: 50+ pound weight loss in the last few months due to stage 4 cancer MVI and boost were provided. 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 There is no need for surgical intervention at this time especially as he is undergoing chemotherapy (14) DVT prophylaxis: lovenox daily was provided Disposition-stable for discharge to home today with home health care plan in place Total Time Total Time Spent Total Time Spent (In Minutes): Greater than 30 minutes Total Time Includes: Examination of the Patient, Discharge Planning and Medication Reconciliation Discharge Plan Discharge Items Patient Disposition: Home - Home Health Services Reason For Visit: NARCOTIC WITHDRAWL, CHEST PAIN Discharge Diagnosis: Narcotic withdrawal, chest pain Condition: Good Discharge Goals: Decrease discomfort, Diagnostic testing, Improve disease control, Learn about illness and Therapeutic intervention Activity: Resume your previous activity Lifting: Gradually increase as tolerated Bathing: No limitations Exercise/Sports: Gradually increase as tolerated Driving/Machine Use: No limitations Non-emergency contact: Primary Care Provider and Oncologist Call non-emergency contact if: you have any medication questions, your symptoms worsen, your pain is not controlled, your pain is worsening, your pain is unusual for you, your pain is concerning for you, you have a fever and your temperature is above 100.5 Diet: Heart Healthy Add Provider Instructions: You were admitted with flulike symptoms which may have been due to withdrawal from being off of your methadone due to you running out of the medication. You were also treated for the flu just in case. You should finish out 1 more days worth of the Tamiflu for this. He was restarted on her methadone and you should continue this as prescribed. Your blood pressure was very high and he was started on a new medication for this called amlodipine. Please continue taking this once daily in the evening. Please follow-up with your primary care provider at the [facility] and your oncologist as scheduled for you within 2 weeks. Prescriptions: New oseltamivir [Tamiflu] 75 mg Capsule 75 mg PO BID Qty: 2 RF: 0 amlodipine [Norvasc] 5 mg Tablet 5 mg PO HS Qty: 30 RF: 0 Continue atorvastatin 80 mg Tablet 80 mg PO PM RF: 0 ascorbic acid (vitamin C) [Vitamin C] 1,000 mg Tablet 1 g PO QAM RF: 0 magnesium oxide 420 mg Tablet 420 mg PO BID RF: 0 cyanocobalamin (vitamin B-12) [Vitamin B-12] 100 mcg Tablet 100 mcg PO QAM RF: 0 cetirizine 10 mg Tablet 5 mg PO QAM RF: 0 methadone 10 mg Tablet 10 mg PO QID RF: 0 terazosin 2 mg Capsule 2 mg PO QPM RF: 0 docusate sodium 100 mg Capsule 100 mg PO BID RF: 0 pyridoxine (vitamin B6) [Vitamin B-6] 100 mg Tablet 100 mg PO QAM RF: 0 albuterol sulfate 90 mcg/actuation Hfa Aerosol Inhaler 2 puff INHALATION Q4H PRN (Reason: Shortness Of Breath) RF: 0 fludrocortisone 0.1 mg Tablet 0.1 mg PO QAM RF: 0 cholecalciferol (vitamin D3) [Vitamin D3] 400 unit Tablet 400 unit PO QAM RF: 0 finasteride 5 mg Tablet 5 mg PO QAM RF: 0 tiotropium bromide [Spiriva with HandiHaler] 18 mcg Capsule, W/Inhalation Device 1 cap INHALATION QAM RF: 0 budesonide-formoterol [Symbicort] 160-4.5 mcg/actuation Hfa Aerosol Inhaler 2 puff INHALATION BID RF: 0 Nebulizer Treatments 1 dose Inhalation QID RF: 0 potassium chloride 20 mEq Tablet Extended Release 20 meq PO DAILY RF: 0 Stand-Alone Forms: [facility]charge Orders: Discharge Order (Routine); Ordered 06/20/18 Ordered By: Arabella Forrest Admission Data Admit Date/Time: 06/16/18 08:53 Attending Provider: Arabella Forrest Admit Provider: Sherif Lawler Primary Care Provider: Aylin Broderick Other Providers: Kike Marcum Molham Service: Telemetry Other Pending Studies at Discharge: No
[2018-06-20] MEDS ORDERED: METHADONE HCL 10 MG TAB PO SCH ×2 (11:00→11:15)
== END 2018-06-20 11:59 | disposition home health service (06) | DRG 896 ==
LOC: ED 04:47 → SUATTDRO 08:53 → 2S 08:53 → 2N 22:20

== ENCOUNTER 2018-06-28 12:10 | Inpatient (IN) ==
[2018-06-28] MEDS ORDERED: ALBUT/IPRATROP 3MG/0.5MG NEB 3 ML VIAL NEB STA ×2 (12:24→15:16)
--- NOTE | 2018-06-28 12:48 | XRay Report ---
XR chest 1V portable CLINICAL HISTORY: Dyspnea COMPARISON STUDY: 06/16/2018 FINDINGS: The heart is normal in size. There is aortic tortuosity. There is radiographic evidence of pulmonary emphysema. There are old rib fractures. There is a right midlung zone nodule likely represe nting a calcified granuloma. Linear opacities the left lung base are likely atelectatic. There is ruby nting of the right lateral costophrenic angle. The destructive paraspinal mass visualized on the rece nt CT scan is not delineated on conventional radiographic evaluation.[ IMPRESSION: 1. Severe pulmonary emphysema 2. No evidence of acute parenchymal consolidation Electronically signed by: Shen Orona M.D. 06/28/2018 12:46 PM
[2018-06-28 14:04] LABS: Basophils # (auto) 0.02 K/uL (0-0.2); Basophils % (auto) 0.2 %; Eosinophils # (auto) 0.05 K/uL (0-0.5); Eosinophils % (auto) 0.5 %; Hematocrit (blood only) 37.4 % (42-52); Hemoglobin 12.1 g/dL (14.0-18.0); Immature Granulocytes # (auto) 0.03 K/uL (0.00-0.02); Immature Granulocytes % (auto) 0.3 %; Lymphocytes % (auto) 9.9 %; Mean Corpuscular Hgb Conc 32.4 g/dL (32-36); Mean Corpuscular Volume 88.8 fL (80-100); Mean Platelet Volume 9.6 fL (7.4-10.4); Monocytes # (auto) 0.95 K/uL (0.11-0.59); Monocytes % (auto) 9.4 %; Neutrophils # (auto) 8.01 K/uL (1.4-6.5); Neutrophils % (auto) 79.7 %; Platelet Count 146 K/uL (130-400); RDW Coefficient of Variation 20.6 % (11.5-14.5); RDW Standard Deviation 67.5 fL (36.4-46.3); Red Blood Count 4.21 M/uL (4.7-6.1); White Blood Count 10.06 K/uL (4.8-10.8)
[2018-06-28 14:14] LABS: Influenza A virus by PCR Neg for Influ A (Neg); Influenza B virus by PCR Neg for Influ B (Neg)
[2018-06-28 14:18] LABS: INR 1.1 (0.9-1.1); Partial Thromboplastin Ratio 1.1; Partial Thromboplastin Time 28.2 Seconds (21.0-31.0); Prothrombin Time 10.7 Seconds (9.0-12.0)
[2018-06-28 14:22] LABS: Alanine Aminotransferase 23 U/L (12-78); Albumin Level 2.8 gm/dl (3.4-5.0); Aspartate Aminotransferase 11 U/L (15-37); BUN Creatinine Ratio 7.7 (10-20); Blood Urea Nitrogen 6 mg/dl (7-18); Calcium 8.3 mg/dl (8.5-10.1); Carbon Dioxide 30 mmol/L (21-32); Chloride 99 mmol/L (98-107); Creatinine Clr Calc Pharmacy 95.9 ml/min; Est GFR (African American) 106.4; Est GFR (Non-African American) 91.8; Glucose 105 mg/dl (70-99); Magnesium 1.7 mg/dl (1.8-2.4); Potassium 4.1 mmol/L (3.5-5.1); Sodium 136 mmol/L (136-145)
[2018-06-28 14:27] LABS: Albumin Globulin Ratio 0.8 (0.9-2); Alkaline Phosphatase 83 U/L (45-117); Bilirubin,Total 0.4 mg/dl (0.2-1); Globulin 3.6 gm/dl (2.5-4.0); Total Protein 6.4 gm/dl (6.4-8.2); Troponin I < 0.015 ng/ml (0-0.045)
[2018-06-28 14:52] LABS: Anisocytosis Present
[2018-06-28] MEDS ORDERED: methylPREDNISolone 125 MG/2 ML VIAL IV STA (14:52)
[2018-06-28] MEDS ORDERED: LEVOFLOXACIN/D5W 750 MG/150 ML BAG IV STA (14:52)
[2018-06-28 15:02] LABS: Appearance Urine Clear (Clear); Bacteria Urine Automated Negative (Negative); Bilirubin Urine Negative (Negative); Cast Urine Automated 0 /lpf (0-5); Color Urine Yellow; Glucose Urine UA Negative (Negative); Ketones Urine Negative (Negative); Leukocyte Esterase Urine Trace (Negative); Nitrite Urine Negative (Negative); Protein Urine Negative (Negative); Specific Gravity Urine 1.009 (1.000-1.030); Urobilinogen Urine Negative (Negative)
--- NOTE | 2018-06-28 17:34 | History & Physical Report ---
Date of Service June 28, 2018 Assessment & Plan (1) COPD exacerbation: - Presented with SOB on exertion; has been requiring 2-3L via NC since admission. - CXR: severe pulmonary emphysema, no consolidation. - Influenza by PCR and blood cultures are pending. - Droplet precautions ordered. - Received Solu-medrol 125 mg IV x 1 dose; start 40 mg IV q8hr. - Start Levaquin 750 mg IV q24hr for empiric coverage. - Duonebs scheduled QID with albuterol nebulizers prn. - Continue home Symbicort and Spiriva as prescribed. (2) Acute respiratory failure with hypoxia: - Currently requiring 2-3L via NC as noted above. - Likely related to COPD exacerbation. 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 Consider CT of chest for further evaluation if no improvement with IV antibiotics/nebulizers. (3) Stage 4 lung cancer: - Follows with Dr. Anand. - Has progression of disease, is losing weight. - Receiving Opdivo treatment; has appt with oncology scheduled on 07/06/18. - Consider inpatient consult if there is concern for immunotherapy induced pneumonitis. - Continue home Methadone 10 mg QID for chronic pain control. (4) Bladder cancer: - H/o multiple TURBT procedures. (5) Essential (primary) hypertension: - Continue Amlodipine 5 mg PO daily. (6) Hyperlipidemia: - Continue Atorvastatin 80 mg qPM. (7) BPH (benign prostatic hyperplasia): - Continue Finasteride 5 mg qAM and Terazosin as prescribed. (8) Lipoma: - No need for acute intervention, will monitor. (9) Severe protein-calorie malnutrition: - 50+ pound weight loss due to stage 4 lung cancer. - Encourage heart healthy diet. (10) Electrolyte abnormality: - Continue home KCl 20 mEq daily and Mag Oxide 400 mg BID. - Mag level 1.7 - will order additional mag sulfate 2 gm IV. - K level WNL --- no replacement required. - Monitor levels qAM. (11) DVT prophylaxis: - SCDs and Lovenox 40 mg subQ q24hr. Dispo: Med surg with telemetry for IV abx and IV steroids. History of Present Illness Primary Care Provider: NO PCP Mr. Shetty is a 73 year old male with history of lung cancer currently receiving immunotherapy with Opdivo, bladder scan, COPD, HTN, HLD who presented with dypsnea on exertion x 12 hours. Pt. states he woke up this morning around 5 am. He developed significant shortness of breath after ambulating to the bathroom. He had to rest for a few minutes before he started to walk again. Shortness of breath with exertion persisted throughout the morning with ambulation. Pt. used his albuterol inhaler with minimal relief. Has chest pressure, located in the sternal area. Denies radiation of pain into jaw or arm , nausea or vomiting. Complains of a non-productive cough, onset was less than 12 hours ago. Denies nasal congestion, sinus pressure, headaches, pharyngitis, LE edema. Denies abdominal pain, N/V, constipation or diarrhea, dysuria or hematuria. Pt. was admitted from 06/16-06/20 for nausea/vomiting and flulike symptoms. Influenza by PCR was negative; symptoms were thought to be related to a viral gastroenteritis vs. methadone withdrawal as pt. was not taking his Methadone at home correctly. CXR showed severe pulmonary emphysema, no evidence of acute consolidation. He received Solu-medrol 125 mg IV, Levaquin 750 mg IV in the ED. Will admit for further IV antibiotics, IV steroids and Duo-nebs. Allergies Allergy/AdvReac Type Severity Reaction Status Date / Time Bactrim Allergy Severe TONGUE Verified 12/02/17 08:11 SWELLS/FONG mupirocin Allergy Severe ANAPHYLAXIS Verified 06/16/18 06:02 sulfamethoxazole Allergy Severe TONGUE Verified 06/28/18 14:28 SWELLS/FONG trimethoprim Allergy Severe TONGUE Verified 06/28/18 14:28 SWELLS/FONG Iodinated Contrast- Oral and Allergy Intermediate HIVES/ITCHI Verified 06/28/18 14:28 IV Dye NG lisinopril Allergy Intermediate Tongue Verified 06/28/18 14:28 Swelling mustard Allergy Intermediate Hives, Verified 06/28/18 14:28 SOB, Itchy aspirin Allergy Mild ITCHY Verified 06/28/18 14:28 adhesive AdvReac Intermediate Tape - Rash Verified 06/28/18 14:28 Home Medications Home Medications Medication Instructions Recorded Confirmed Type Nebulizer Treatments 1 dose INHALATION QID 03/30/18 06/28/18 History albuterol sulfate 2 puff INHALATION Q4H PRN 03/30/18 06/28/18 History ascorbic acid (vitamin C) [Vitamin 1 g PO QAM 03/30/18 06/28/18 History C] atorvastatin 80 mg PO PM 03/30/18 06/28/18 History budesonide-formoterol [Symbicort] 2 puff INHALATION BID 03/30/18 06/28/18 History cetirizine 5 mg PO QAM 03/30/18 06/28/18 History cyanocobalamin (vitamin B-12) 100 mcg PO QAM 03/30/18 06/28/18 History [Vitamin B-12] docusate sodium 100 mg PO BID 03/30/18 06/28/18 History finasteride 5 mg PO QAM 03/30/18 06/28/18 History fludrocortisone 0.1 mg PO QAM 03/30/18 06/28/18 History magnesium oxide 420 mg PO BID 03/30/18 06/28/18 History methadone 10 mg PO QID 03/30/18 06/28/18 History pyridoxine (vitamin B6) [Vitamin 100 mg PO QAM 03/30/18 06/28/18 History B-6] terazosin 2 mg PO QPM 03/30/18 06/28/18 History tiotropium bromide [Spiriva with 1 cap INHALATION QAM 03/30/18 06/28/18 History HandiHaler] potassium chloride 20 meq PO DAILY 06/16/18 06/28/18 History amlodipine [Norvasc] 5 mg PO HS #30 tab 06/20/18 06/28/18 Rx oseltamivir [Tamiflu] 75 mg PO BID #2 cap 06/20/18 06/28/18 Rx sennosides 2 tabs PO BID PRN #0 tab 06/20/18 06/28/18 Rx Past Med/Surg History Medical History BPH (benign prostatic hyperplasia) (Chronic) COPD (chronic obstructive pulmonary disease) (Chronic) Elevated PSA (Chronic) H/O malignant neoplasm of skin (Chronic) Hyperlipidemia (Chronic) Non-small cell lung cancer (Chronic) CURRENTLY BEING TREATED W/ CHEMOTHERAPY Stroke (Chronic) 2009 - NO PERIPHERAL VISION RT SIDE - NO NEUROLOGIST Urothelial carcinoma (Chronic) H/O hematuria (Resolved) Hypertension (Resolved) Bladder cancer CURRENTLY BEING TREATED W/ CHEMOTHERAPY Chronic back pain Constipation Inguinal hernia BL Osteoarthritis Umbilical hernia Surgical History H/O prostate biopsy (Acute) H/O Moh's micrographic surgery for skin cancer (Resolved) H/O hand surgery (Resolved) H/O prostatectomy History of bronchoscopy W/ BIOPSY History of colonoscopy History of surgery TRANSURETHRAL RESECTION OF BLADDER TUMOR X 3 History of surgery PLACEMENT OF MEDIPORT W/ REMOVAL History of ureter stent W/ REMOVAL Family History Father , 69yo [place], DM, arthritis, HTN No problems noted. Mother , age 84 from stroke No problems noted. Social History marital status: marital status details: 1 son and 3 daughters Current Living Situation: Alone Current Living Situation Comment: lives in [place] current occupational status: retired current occupation: [employer] Other Information That Helps Us Care for You: No Feels Safe at Home: Yes Safety Concerns: Feels Safe At This Time Smoking Status: Current every day smoker Tobacco Type: cigarettes Do You Dip or Chew Tobacco: No Second Hand Exposure: No Tobacco Cessation Education Requested by Patient: No Hx Alcohol Use: No Hx Substance Use: No Beliefs That Will Affect Care: None Preferred Language: Wolof Communication Ability: Effective 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: No well-balanced diet: other caffeine: Yes (3 cups/day) during the past year weight has: decreased > 10 lbs Review of Systems All systems reviewed & are unremarkable except as noted in HPI & below Constitutional: + weakness, + anorexia and + weight loss; no fever and no chills Ear, Nose, Mouth, Throat: no nasal discharge, no post nasal drip, no facial pain , no sinus pain/pressure, no sore throat and no dysphagia Respiratory: + cough, + dyspnea on exertion and + sputum production; no chest congestion, no dyspnea and no wheezing Cardiovascular: + chest pain; no radiating jaw, neck or arm pain, no palpitations, no syncope and no edema Gastrointestinal: no abdominal pain, no nausea, no vomiting, no constipation and no diarrhea/loose stools Genitourinary (Male): no dysuria, no difficulty urinating and no hematuria Musculoskeletal: no joint pain Integumentary: no rash Hematologic / Lymphatic: no easy bleeding, no easy bruising and no night sweats Allergy / Immunological: no rash Physical Exam 2 Vital Signs (Past 24 Hours): Last Vital Signs Temp 38.3 C H 06/28/18 12:24 Pulse 90 06/28/18 16:00 Resp 23 06/28/18 16:00 BP 130/69 06/28/18 16:00 Pulse Ox 98 06/28/18 16:00 Physical Exam: General: Resting comfortably in no apparent distress HEENT: NC/AT; PERRLA with EOMI; [place] conjunctiva, MMM. Neck: Supple and nontender Cardiac: RRR Lungs: on 3L via NC; diminished throughout all lung kan Abdomen: Bowel normoactive X 4; Nontender to palpation Extremities: Warm. No edema present Neuro: No focal weakness Skin: No rash Results & Data Laboratory Results 06/28/18 06/28/18 06/28/18 Range/Units 14:35 13:40 13:40 WBC (4.8-10.8) K/uL RBC (4.7-6.1) M/uL Hgb (14.0-18.0) g/dL Hct (42-52) % MCV (80-100) fL MCH (25-34) pg MCHC (32-36) g/dL RDW Std Deviation (36.4-46.3) fL RDW Coeff of James (11.5-14.5) % Plt Count (130-400) K/uL MPV (7.4-10.4) fL Immature Gran % (Auto) % Neut % (Auto) % Lymph % (Auto) % [place] % (Auto) % Eos % (Auto) % Baso % (Auto) % Immature Gran # (Auto) (0.00-0.02) K/uL Neut # (Auto) (1.4-6.5) K/uL Lymph # (Auto) (1.2-3.4) K/uL [place] # (Auto) (0.11-0.59) K/uL Eos # (Auto) (0-0.5) K/uL Baso # (Auto) (0-0.2) K/uL Anisocytosis PT 10.7 (9.0-12.0) Seconds INR 1.1 (0.9-1.1) APTT 28.2 (21.0-31.0) Seconds PTT Ratio 1.1 Sodium 136 (136-145) mmol/L Potassium 4.1 (3.5-5.1) mmol/L Chloride 99 (98-107) mmol/L Carbon Dioxide 30 (21-32) mmol/L Anion Gap 7.0 (3-11) BUN 6 L (7-18) mg/dl Creatinine 0.76 (0.6-1.4) mg/dl Est Cr Clr Drug Dosing 95.9 ml/min Est GFR ( Amer) 106.4 Est GFR (Non-Af Amer) 91.8 BUN/Creatinine Ratio 7.7 L (10-20) Glucose 105 H (70-99) mg/dl Calcium 8.3 L (8.5-10.1) mg/dl Magnesium 1.7 L (1.8-2.4) mg/dl Total Bilirubin 0.4 (0.2-1) mg/dl AST 11 L (15-37) U/L ALT 23 (12-78) U/L Alkaline Phosphatase 83 (45-117) U/L Troponin I < 0.015 (0-0.045) ng/ml Total Protein 6.4 (6.4-8.2) gm/dl Albumin 2.8 L (3.4-5.0) gm/dl Globulin 3.6 (2.5-4.0) gm/dl Albumin/Globulin Ratio 0.8 L (0.9-2) Urine Color Yellow Urine Appearance Clear (Clear) Urine pH 6.0 (4.5-7.5) Ur Specific [place] 1.009 (1.000-1.030) Urine Protein Negative (Negative) Urine Glucose (UA) Negative (Negative) Urine Ketones Negative (Negative) Urine Blood Negative (Negative) Urine Nitrite Negative (Negative) Urine Bilirubin Negative (Negative) Urine Urobilinogen Negative (Negative) Ur Leukocyte Esterase Trace H (Negative) Urine WBC (Auto) 1-5 (0-5) /hpf Urine RBC (Auto) 0-4 (0-4) /hpf U Hyaline Cast (Auto) 0 (0-5) /lpf U Epithel Cells (Auto) 10-20 H (0-5) /lpf Urine Bacteria (Auto) Negative (Negative) Influenza Type A (PCR) (Neg) Influenza Type B (PCR) (Neg) 06/28/18 06/28/18 Range/Units 13:40 12:50 WBC 10.06 (4.8-10.8) K/uL RBC 4.21 L (4.7-6.1) M/uL Hgb 12.1 L (14.0-18.0) g/dL Hct 37.4 L (42-52) % MCV 88.8 (80-100) fL MCH 28.7 (25-34) pg MCHC 32.4 (32-36) g/dL RDW Std Deviation 67.5 H (36.4-46.3) fL RDW Coeff of James 20.6 H (11.5-14.5) % Plt Count 146 (130-400) K/uL MPV 9.6 (7.4-10.4) fL Immature Gran % (Auto) 0.3 % Neut % (Auto) 79.7 % Lymph % (Auto) 9.9 % [place] % (Auto) 9.4 % Eos % (Auto) 0.5 % Baso % (Auto) 0.2 % Immature Gran # (Auto) 0.03 H (0.00-0.02) K/uL Neut # (Auto) 8.01 H (1.4-6.5) K/uL Lymph # (Auto) 1.00 L (1.2-3.4) K/uL [place] # (Auto) 0.95 H (0.11-0.59) K/uL Eos # (Auto) 0.05 (0-0.5) K/uL Baso # (Auto) 0.02 (0-0.2) K/uL Anisocytosis Present PT (9.0-12.0) Seconds INR (0.9-1.1) APTT (21.0-31.0) Seconds PTT Ratio Sodium (136-145) mmol/L Potassium (3.5-5.1) mmol/L Chloride (98-107) mmol/L Carbon Dioxide (21-32) mmol/L Anion Gap (3-11) BUN (7-18) mg/dl Creatinine (0.6-1.4) mg/dl Est Cr Clr Drug Dosing ml/min Est GFR ( Amer) Est GFR (Non-Af Amer) BUN/Creatinine Ratio (10-20) Glucose (70-99) mg/dl Calcium (8.5-10.1) mg/dl Magnesium (1.8-2.4) mg/dl Total Bilirubin (0.2-1) mg/dl AST (15-37) U/L ALT (12-78) U/L Alkaline Phosphatase (45-117) U/L Troponin I (0-0.045) ng/ml Total Protein (6.4-8.2) gm/dl Albumin (3.4-5.0) gm/dl Globulin (2.5-4.0) gm/dl Albumin/Globulin Ratio (0.9-2) Urine Color Urine Appearance (Clear) Urine pH (4.5-7.5) Ur Specific [place] (1.000-1.030) Urine Protein (Negative) Urine Glucose (UA) (Negative) Urine Ketones (Negative) Urine Blood (Negative) Urine Nitrite (Negative) Urine Bilirubin (Negative) Urine Urobilinogen (Negative) Ur Leukocyte Esterase (Negative) Urine WBC (Auto) (0-5) /hpf Urine RBC (Auto) (0-4) /hpf U Hyaline Cast (Auto) (0-5) /lpf U Epithel Cells (Auto) (0-5) /lpf Urine Bacteria (Auto) (Negative) Influenza Type A (PCR) Neg for Influ A (Neg) Influenza Type B (PCR) Neg for Influ B (Neg) Diagnostic Findings XR chest 1V portable CLINICAL HISTORY: Dyspnea COMPARISON STUDY: 06/16/2018 FINDINGS: The heart is normal in size. There is aortic tortuosity. There is radiographic evidence of pulmonary emphysema. There are old rib fractures. There is a right midlung zone nodule likely representing a calcified granuloma. Linear opacities the left lung base are likely atelectatic. There is blunting of the right lateral costophrenic angle. The destructive paraspinal mass visualized on the recent CT scan is not delineated on conventional radiographic evaluation.[ IMPRESSION: 1. Severe pulmonary emphysema 2. No evidence of acute parenchymal consolidation ECG Additional Comments: Normal Sinus Rhythm Code Status & VTE Plan Code Status FULL CODE Supervising Physician Co-Signing Physician Notes Attending Admission Note & Attestation - Pt seen/examined, chart reviewed, care plan d/w NICHO Reed. I agree w/ the tam components of her admission documentation. 73yo male with severe COPD and known stage 4 lung ca on opdivo therapy - well known to me from his recent prior hospital stay - presenting with COPD exacerbation. Symptoms began early this am. Requiring NC O2. Flu neg. Chest x-ray w/o infiltrates. Also w/ chronic pain syndrome on chronic methadone Rx 4 times a day. PMH, PSH, allergies, meds, sochx, famhx, ros - reviewed gen - ill-appearing, coughing, audible wheezing, a/o x 3 mouth - MMM; no thrush neck - no JVD heart - RRR, s1, s2, no obvious murmur lungs - diffuse wheezes all segments; poor air flow; mild tachypnea and scant retractions; barrel chest abd - mild distension (baseline); BS+, tender LUQ (chronic - had this last admission); no HSM ext - no edema skin - numerous tattoos labs reviewed CBC, BMP acceptable flu PCR neg cxr - no infiltrates A/P: 1. acute hypoxic resp failure 2nd to COPD exacerbation 2. stage 4 lung ca 3. chronic pain syndrome 4. recent admission for flu-like illness and methadone withdrawal 5. h/o bladder ca 6. ongoing tobacco dependence agree with IV steroids, abx, nebs, inhalers add incentive kecia add mucinex NC O2 as needed cont chronic methadone needs to quit smoking - offer nicoderm if desired telemetry Sherif Lawler MD _ (1) Bladder cancer Bladder location: unspecified site Qualified Code(s): C67.9 - Malignant neoplasm of bladder, unspecified (2) Stage 4 lung cancer Laterality: unspecified laterality Qualified Code(s): C34.90 - Malignant neoplasm of unspecified part of unspecified bronchus or lung
[2018-06-28] MEDS ORDERED: POLYETHYLENE (MIRALAX) 17 GM PACK PO PRN (19:12)
[2018-06-28] MEDS ORDERED: ALBUTEROL 0.5% NEB SOLN 2.5 MG/0.5 ML VIAL NEB PRN (19:12)
[2018-06-28] MEDS ORDERED: ACETAMINOPHEN 325 MG TAB PO PRN (19:12)
--- NOTE | 2018-06-28 19:44 | Emergency Department Note ---
Entered by Reggie Jenkins acting as a scribe for History of Present Illness General Chief complaint: Shortness of Breath/Dyspnea Time Seen by Provider: 06/28/18 12:18 Source: patient Limitations: no limitations History of Present Illness Provider complaint: SOB/Fever Onset (ago): hour(s) Location: chest (SOB) Pain Consistency: + other (worsening) Quality: + other (SOB) Associated symptoms: + fever/chills Treatments prior to arrival: other (Nasal cannula oxygen) The patient is a 73 year old male who presents to the Emergency Room with complaints of worsening shortness of breath that he noticed earlier this morning. The patient states that he was just discharged from the hospital one week ago yesterday after an inpatient stay for shortness of breath. He adds that he had a chest x-ray, CT of the chest, and blood work performed on this inpatient stay. He notes that he was never given a reason for why he was short of breath and was not started on any antibiotics. The patient woke up at 0500 this morning and noticed significant shortness of breath as he tried to walk from his bedroom to the kitchen. He waited for his home health nurse to arrive, who stated that he did have a fever today as well. 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 He has had a DVT in the past, but is no longer on Plavix. He does mention that he was told that he may have been having methadone withdrawals on his inpatient stay as he had run out of the prescription. The patient has noted some worsening lower extremity swelling recently. He is not on oxygen at home. Home Medications Home Medications Medication Instructions Recorded Confirmed Type Nebulizer Treatments 1 dose INHALATION QID 03/30/18 06/28/18 History albuterol sulfate 2 puff INHALATION Q4H PRN 03/30/18 06/28/18 History ascorbic acid (vitamin C) [Vitamin 1 g PO QAM 03/30/18 06/28/18 History C] atorvastatin 80 mg PO PM 03/30/18 06/28/18 History budesonide-formoterol [Symbicort] 2 puff INHALATION BID 03/30/18 06/28/18 History cetirizine 5 mg PO QAM 03/30/18 06/28/18 History cyanocobalamin (vitamin B-12) 100 mcg PO QAM 03/30/18 06/28/18 History [Vitamin B-12] docusate sodium 100 mg PO BID 03/30/18 06/28/18 History finasteride 5 mg PO QAM 03/30/18 06/28/18 History fludrocortisone 0.1 mg PO QAM 03/30/18 06/28/18 History magnesium oxide 420 mg PO BID 03/30/18 06/28/18 History methadone 10 mg PO QID 03/30/18 06/28/18 History pyridoxine (vitamin B6) [Vitamin 100 mg PO QAM 03/30/18 06/28/18 History B-6] terazosin 2 mg PO QPM 03/30/18 06/28/18 History tiotropium bromide [Spiriva with 1 cap INHALATION QAM 03/30/18 06/28/18 History HandiHaler] potassium chloride 20 meq PO DAILY 06/16/18 06/28/18 History amlodipine [Norvasc] 5 mg PO HS #30 tab 06/20/18 06/28/18 Rx oseltamivir [Tamiflu] 75 mg PO BID #2 cap 06/20/18 06/28/18 Rx sennosides 2 tabs PO BID PRN #0 tab 06/20/18 06/28/18 Rx Allergies Allergy/AdvReac Type Severity Reaction Status Date / Time Bactrim Allergy Severe TONGUE Verified 12/02/17 08:11 SWELLS/FONG mupirocin Allergy Severe ANAPHYLAXIS Verified 06/16/18 06:02 sulfamethoxazole Allergy Severe TONGUE Verified 06/28/18 14:28 SWELLS/FONG trimethoprim Allergy Severe TONGUE Verified 06/28/18 14:28 SWELLS/FONG Iodinated Contrast- Oral and Allergy Intermediate HIVES/ITCHI Verified 06/28/18 14:28 IV Dye NG lisinopril Allergy Intermediate Tongue Verified 06/28/18 14:28 Swelling mustard Allergy Intermediate Hives, Verified 06/28/18 14:28 SOB, Itchy aspirin Allergy Mild ITCHY Verified 06/28/18 14:28 adhesive AdvReac Intermediate Tape - Rash Verified 06/28/18 14:28 Past Med/Surg History Medical History BPH (benign prostatic hyperplasia) (Chronic) COPD (chronic obstructive pulmonary disease) (Chronic) Elevated PSA (Chronic) H/O malignant neoplasm of skin (Chronic) Hyperlipidemia (Chronic) Non-small cell lung cancer (Chronic) CURRENTLY BEING TREATED W/ CHEMOTHERAPY Stroke (Chronic) 2009 - NO PERIPHERAL VISION RT SIDE - NO NEUROLOGIST Urothelial carcinoma (Chronic) H/O hematuria (Resolved) Hypertension (Resolved) Bladder cancer CURRENTLY BEING TREATED W/ CHEMOTHERAPY Chronic back pain Constipation Inguinal hernia BL Osteoarthritis Umbilical hernia Surgical History H/O prostate biopsy (Acute) H/O Moh's micrographic surgery for skin cancer (Resolved) H/O hand surgery (Resolved) H/O prostatectomy History of bronchoscopy W/ BIOPSY History of colonoscopy History of surgery TRANSURETHRAL RESECTION OF BLADDER TUMOR X 3 History of surgery PLACEMENT OF MEDIPORT W/ REMOVAL History of ureter stent W/ REMOVAL Family History Father , 69yo [place], DM, arthritis, HTN No problems noted. Mother , age 84 from stroke No problems noted. 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 and A total of 10 systems reviewed and were otherwise negative Physical Exam Vital Signs Vital Signs - 24 hr 06/28/18 12:24 06/28/18 13:36 06/28/18 14:41 Temperature 38.3 C H Temperature Source Oral Sepsis Recent Fever Within 48 Hours Yes Sepsis New/Unexplained Change in Mental Status No Sepsis Action Taken by Nursing No Action Required Pulse Rate 100 H Pulse Rate [Left Apical] Pulse Rate [Left Finger] 92 H 93 H Pulse Rhythm [Left Apical] Pulse Strength [Left Apical] Respiratory Rate 16 20 22 Respiratory Effort / Characteristics Respiratory Depth Respiratory Pattern Blood Pressure 145/73 H Blood Pressure [Left Arm] 127/66 129/63 Blood Pressure Mean 97 Blood Pressure Mean [Left Arm] 86 85 Blood Pressure Position [Left Arm] Pulse Oximetry 96 100 96 Oxygen Delivery Method Nasal Cannula Nebulizer Nasal Cannula Oxygen Flow Rate 4 2 Fraction of Inspired Oxygen SaO2/FiO2 Ratio 06/28/18 16:00 06/28/18 18:15 06/28/18 18:41 Temperature Temperature Source Sepsis Recent Fever Within 48 Hours Sepsis New/Unexplained Change in Mental Status Sepsis Action Taken by Nursing Pulse Rate Pulse Rate [Left Apical] 90 87 Pulse Rate [Left Finger] Pulse Rhythm [Left Apical] Regular Regular Pulse Strength [Left Apical] Normal Normal Respiratory Rate 23 25 H Respiratory Effort / Characteristics Non-Labored Spontaneous SOB on Exertion Respiratory Depth Normal Respiratory Pattern Regular Blood Pressure Blood Pressure [Left Arm] 130/69 128/72 Blood Pressure Mean Blood Pressure Mean [Left Arm] 89 90 Blood Pressure Position [Left Arm] Lying Sitting Pulse Oximetry 98 94 Oxygen Delivery Method Nasal Cannula Nasal Cannula Nasal Cannula Oxygen Flow Rate 2 2 Fraction of Inspired Oxygen 2 SaO2/FiO2 Ratio 4700 GENERAL: Patient is awake, alert, and mildly anxious appearing and uncomfortable. EYES: The conjunctivae are clear. The pupils are round and reactive. EARS, NOSE, MOUTH AND THROAT: The nose is without any evidence of any deformity. Mucous membranes are moist.Tongue is midline NECK: The neck is nontender and supple. RESPIRATORY: There are diminished breath sounds throughout with expiratory wheezing in all lung kan. Mild tachypnea was noted. There is no evidence rhonchi or rales to auscultation. CARDIOVASCULAR: Regular rate and rhythm noted. There no murmurs rubs or gallops normal S1 normal S2 GASTROINTESTINAL: The abdomen is soft. Bowel sounds are present in all quadrants. Abdomen is nontender. MUSCULOSKELETAL/EXTREMITIES: There is no evidence of gross deformity. Full range of motion is noted in the hips and shoulders. SKIN: There is no obvious evidence of any rash. There are no petechiae, pallor or cyanosis noted. Trace pedal edema bilaterally. NEUROLOGIC: Patient is awake alert and oriented x3. Course 1223: Past medical records reviewed. The patient was evaluated in room B12B, and a complete history and physical examination were performed. 1447: I updated the patient at this time. 1516: I reviewed the patient's case with Dr. Jaxson NAVARRETE Hospitalist. She will evaluate the patient for further management. Consultations Consultation #1: 1516: I reviewed the patient's case with Dr. Jaxson NAVARRETE Hospitalist. She will evaluate the patient for further management. Administered Medications Discontinued Medications Albuterol (Duoneb) 3 ml NEB NOW STA Stop: 06/28/18 12:25 Last Admin: 06/28/18 13:35 Dose: 3 ml Albuterol (Duoneb) 3 ml NEB NOW STA Stop: 06/28/18 15:17 Last Admin: 06/28/18 15:30 Dose: 3 ml Levofloxacin/Dextrose (Levaquin/D5w) 750 mg in 150 mls @ 100 mls/hr IV NOW STA Stop: 06/28/18 16:21 Last Infusion: 06/28/18 16:50 Dose: 0 mls/hr Admin: 06/28/18 15:17 Dose: 100 mls/hr Methylprednisolone (Solumedrol) 125 mg IV NOW STA Stop: 06/28/18 14:53 Last Admin: 06/28/18 15:18 Dose: 125 mg Medical Decision Making Differential Diagnosis Differential diagnosis: Etiologies such as infections, reactive airway disease, COPD, pneumonia, pleural effusion, pulmonary edema, ARDS, pneumothorax, CHF, cardiac ischemia, cardiac tamponade, dysrhythmia, anemia, pulmonary embolism, musculoskeletal, gastrointestinal process, as well as others were entertained. Medical Records Attestation: I reviewed the patient's medical records. Home Medications Current Medication List: was personally reviewed by me Laboratory Data Attestation: I reviewed the patient's lab results. Result diagrams: 06/28/18 13:40 06/28/18 13:40 Lab Results 06/28/18 06/28/18 06/28/18 Range/Units 12:50 13:40 13:40 WBC 10.06 (4.8-10.8) K/uL RBC 4.21 L (4.7-6.1) M/uL Hgb 12.1 L (14.0-18.0) g/dL Hct 37.4 L (42-52) % MCV 88.8 (80-100) fL MCH 28.7 (25-34) pg MCHC 32.4 (32-36) g/dL RDW Std Deviation 67.5 H (36.4-46.3) fL RDW Coeff of James 20.6 H (11.5-14.5) % Plt Count 146 (130-400) K/uL MPV 9.6 (7.4-10.4) fL Immature Gran % (Auto) 0.3 % Neut % (Auto) 79.7 % Lymph % (Auto) 9.9 % Summers % (Auto) 9.4 % Eos % (Auto) 0.5 % Baso % (Auto) 0.2 % Immature Gran # (Auto) 0.03 H (0.00-0.02) K/uL Neut # (Auto) 8.01 H (1.4-6.5) K/uL Lymph # (Auto) 1.00 L (1.2-3.4) K/uL Summers # (Auto) 0.95 H (0.11-0.59) K/uL Eos # (Auto) 0.05 (0-0.5) K/uL Baso # (Auto) 0.02 (0-0.2) K/uL Anisocytosis Present PT 10.7 (9.0-12.0) Seconds INR 1.1 (0.9-1.1) APTT 28.2 (21.0-31.0) Seconds PTT Ratio 1.1 Sodium (136-145) mmol/L Potassium (3.5-5.1) mmol/L Chloride (98-107) mmol/L Carbon Dioxide (21-32) mmol/L Anion Gap (3-11) BUN (7-18) mg/dl Creatinine (0.6-1.4) mg/dl Est Cr Clr Drug Dosing ml/min Est GFR ( Amer) Est GFR (Non-Af Amer) BUN/Creatinine Ratio (10-20) Glucose (70-99) mg/dl Calcium (8.5-10.1) mg/dl Magnesium (1.8-2.4) mg/dl Total Bilirubin (0.2-1) mg/dl AST (15-37) U/L ALT (12-78) U/L Alkaline Phosphatase (45-117) U/L Troponin I (0-0.045) ng/ml Total Protein (6.4-8.2) gm/dl Albumin (3.4-5.0) gm/dl Globulin (2.5-4.0) gm/dl Albumin/Globulin Ratio (0.9-2) Urine Color Urine Appearance (Clear) Urine pH (4.5-7.5) Ur Specific [place] (1.000-1.030) Urine Protein (Negative) Urine Glucose (UA) (Negative) Urine Ketones (Negative) Urine Blood (Negative) Urine Nitrite (Negative) Urine Bilirubin (Negative) Urine Urobilinogen (Negative) Ur Leukocyte Esterase (Negative) Urine WBC (Auto) (0-5) /hpf Urine RBC (Auto) (0-4) /hpf U Hyaline Cast (Auto) (0-5) /lpf U Epithel Cells (Auto) (0-5) /lpf Urine Bacteria (Auto) (Negative) Influenza Type A (PCR) Neg for Influ A (Neg) Influenza Type B (PCR) Neg for Influ B (Neg) 06/28/18 06/28/18 Range/Units 13:40 14:35 WBC (4.8-10.8) K/uL RBC (4.7-6.1) M/uL Hgb (14.0-18.0) g/dL Hct (42-52) % MCV (80-100) fL MCH (25-34) pg MCHC (32-36) g/dL RDW Std Deviation (36.4-46.3) fL RDW Coeff of James (11.5-14.5) % Plt Count (130-400) K/uL MPV (7.4-10.4) fL Immature Gran % (Auto) % Neut % (Auto) % Lymph % (Auto) % Summers % (Auto) % Eos % (Auto) % Baso % (Auto) % Immature Gran # (Auto) (0.00-0.02) K/uL Neut # (Auto) (1.4-6.5) K/uL Lymph # (Auto) (1.2-3.4) K/uL Summers # (Auto) (0.11-0.59) K/uL Eos # (Auto) (0-0.5) K/uL Baso # (Auto) (0-0.2) K/uL Anisocytosis PT (9.0-12.0) Seconds INR (0.9-1.1) APTT (21.0-31.0) Seconds PTT Ratio Sodium 136 (136-145) mmol/L Potassium 4.1 (3.5-5.1) mmol/L Chloride 99 (98-107) mmol/L Carbon Dioxide 30 (21-32) mmol/L Anion Gap 7.0 (3-11) BUN 6 L (7-18) mg/dl Creatinine 0.76 (0.6-1.4) mg/dl Est Cr Clr Drug Dosing 95.9 ml/min Est GFR ( Amer) 106.4 Est GFR (Non-Af Amer) 91.8 BUN/Creatinine Ratio 7.7 L (10-20) Glucose 105 H (70-99) mg/dl Calcium 8.3 L (8.5-10.1) mg/dl Magnesium 1.7 L (1.8-2.4) mg/dl Total Bilirubin 0.4 (0.2-1) mg/dl AST 11 L (15-37) U/L ALT 23 (12-78) U/L Alkaline Phosphatase 83 (45-117) U/L Troponin I < 0.015 (0-0.045) ng/ml Total Protein 6.4 (6.4-8.2) gm/dl Albumin 2.8 L (3.4-5.0) gm/dl Globulin 3.6 (2.5-4.0) gm/dl Albumin/Globulin Ratio 0.8 L (0.9-2) Urine Color Yellow Urine Appearance Clear (Clear) Urine pH 6.0 (4.5-7.5) Ur Specific [place] 1.009 (1.000-1.030) Urine Protein Negative (Negative) Urine Glucose (UA) Negative (Negative) Urine Ketones Negative (Negative) Urine Blood Negative (Negative) Urine Nitrite Negative (Negative) Urine Bilirubin Negative (Negative) Urine Urobilinogen Negative (Negative) Ur Leukocyte Esterase Trace H (Negative) Urine WBC (Auto) 1-5 (0-5) /hpf Urine RBC (Auto) 0-4 (0-4) /hpf U Hyaline Cast (Auto) 0 (0-5) /lpf U Epithel Cells (Auto) 10-20 H (0-5) /lpf Urine Bacteria (Auto) Negative (Negative) Influenza Type A (PCR) (Neg) Influenza Type B (PCR) (Neg) Imaging Data Attestation: I personally reviewed and interpreted this imaging study as follows : Radiologist's Impression: XR chest 1V portable CLINICAL HISTORY: Dyspnea COMPARISON STUDY: 06/16/2018 FINDINGS: The heart is normal in size. There is aortic tortuosity. There is radiographic evidence of pulmonary emphysema. There are old rib fractures. There is a right midlung zone nodule likely representing a calcified granuloma. Linear opacities the left lung base are likely atelectatic. There is blunting of the right lateral costophrenic angle. The destructive paraspinal mass visualized on the recent CT scan is not delineated on conventional radiographic evaluation.[ IMPRESSION: 1. Severe pulmonary emphysema 2. No evidence of acute parenchymal consolidation Electronically signed by: Shen Orona M.D. 06/28/2018 12:46 PM ECG Data Attestation: I personally reviewed and interpreted this ECG as follows: Indication: SOB/dyspnea Rate (beats per minute): 94 Rhythm: normal sinus Findings: no acute ischemic change and no ectopy Change: no significant change Blood Pressure Blood Pressure Findings: Elevated blood pressure Blood Pressure Disposition: further management by hospitalist JENNIFER Narrative The patient is a 73-year-old male who presented to the emergency department for an evaluation of breath. The patient has a productive cough as well as shortness of breath. He continues to smoke cigarettes. The patient's history and physical exam appear to be consistent with COPD but given his increased sputum production this may be consistent with a bronchitis. The patient was treated with IV fluids and bronchodilator therapy. He was also given antibiotics and steroids. The patient was found to have fever as well as hypoxia. He was also found to have a positive flu swab. I discussed the patient's condition with him. I also discussed his case with the on-call [facility] hospitalist. They have agreed to evaluate the patient in the emergency department for further management and disposition. Impression & Plan COPD exacerbation, Fever, Bronchitis, Hypoxia Discharge Plan Visit Data *Final* Discharge Date/Time: 06/28/18 18:41 Chief Complaint: Shortness of Breath/Dyspnea ED Provider: Jhonathan Gibson Discharge Problem: COPD exacerbation, Fever, Bronchitis, Hypoxia Patient Disposition: Admitted As Inpatient Discharge Instructions Interventions: ED Discharge Assessment Last Done: 06/28/18 18:41 The scribe's documentation has been prepared under my direction and personally reviewed by me in its entirety. I confirm that the note above accurately reflects all work, treatment, procedures, and medical decision making performed by me.
[2018-06-28] MEDS: MAGNESIUM SULFATE / D5W 1 GM/100 ML BAG IV SCH ×2 (20:24→21:22)
[2018-06-28] MEDS: ENOXAPARIN INJ 40 MG/0.4 ML SYR SQ SCH (20:25)
[2018-06-28] MEDS: BUDESONIDE/FORMOTEROL FUMARATE 160/4.5 60 PUFFS/INHALER INH SCH (20:26)
[2018-06-28] MEDS: NICOTINE 14 MG/24 HR PATCH TD SCH (20:27)
[2018-06-28] MEDS: DOCUSATE SODIUM 100 MG CAP PO SCH (20:28)
[2018-06-28] MEDS: TERAZOSIN HCL 1 MG CAP PO SCH (20:29)
[2018-06-28] MEDS: MAGNESIUM OXIDE 400 MG TAB PO SCH (20:30)
[2018-06-28] MEDS: AMLODIPINE BESYLATE 5 MG TAB PO SCH (20:30)
[2018-06-28] MEDS: ATORVASTATIN 40 MG TAB PO SCH (20:30)
[2018-06-28] MEDS: ALBUT/IPRATROP 3MG/0.5MG NEB 3 ML VIAL NEB SCH (20:32)
[2018-06-28] MEDS: guaiFENesin 600 MG TABCR PO SCH (21:22)
[2018-06-28] MEDS: methylPREDNISolone 40 MG in SYRINGE 0 ML IV SCH (21:22)
[2018-06-28] MEDS: METHADONE HCL 10 MG TAB PO SCH (22:33)
[2018-06-29 02:19] LABS: Mean Corpuscular Hgb Conc 32.4 g/dL (32-36); Mean Corpuscular Volume 89.4 fL (80-100); Mean Platelet Volume 9.2 fL (7.4-10.4); Platelet Count 142 K/uL (130-400); RDW Coefficient of Variation 20.3 % (11.5-14.5); RDW Standard Deviation 67.3 fL (36.4-46.3); Red Blood Count 4.14 M/uL (4.7-6.1); White Blood Count 6.43 K/uL (4.8-10.8)
[2018-06-29 02:40] LABS: BUN Creatinine Ratio 13.6 (10-20); Blood Urea Nitrogen 13 mg/dl (7-18); Calcium 8.7 mg/dl (8.5-10.1); Carbon Dioxide 32 mmol/L (21-32); Chloride 100 mmol/L (98-107); Creatinine Clr Calc Pharmacy 76.7 ml/min; Est GFR (Non-African American) 80.2; Glucose 176 mg/dl (70-99); Magnesium 2.3 mg/dl (1.8-2.4); Potassium 4.6 mmol/L (3.5-5.1); Sodium 136 mmol/L (136-145)
[2018-06-29 02:48] LABS: Troponin I < 0.015 ng/ml (0-0.045)
[2018-06-29] MEDS: METHADONE HCL 10 MG TAB PO SCH ×4 (05:40→22:43)
[2018-06-29] MEDS: methylPREDNISolone 40 MG in SYRINGE 0 ML IV SCH ×3 (05:40→21:58)
[2018-06-29] MEDS: ALBUT/IPRATROP 3MG/0.5MG NEB 3 ML VIAL NEB SCH ×4 (06:59→19:07)
[2018-06-29] MEDS: TIOTROPIUM BROMIDE 5 PUFF/90 MCG INH INH SCH (07:55)
[2018-06-29] MEDS: BUDESONIDE/FORMOTEROL FUMARATE 160/4.5 60 PUFFS/INHALER INH SCH ×2 (07:55→20:22)
[2018-06-29] MEDS: ASCORBIC ACID 500 MG TAB PO SCH (07:56)
[2018-06-29] MEDS: PYRIDOXINE HCL 50 MG TAB PO SCH (07:56)
[2018-06-29] MEDS: PANTOprazole 40 MG TAB PO SCH (07:56)
[2018-06-29] MEDS: POTASSIUM CHLORIDE 20 MEQ TABCR PO SCH (07:56)
[2018-06-29] MEDS: guaiFENesin 600 MG TABCR PO SCH ×2 (07:56→20:22)
[2018-06-29] MEDS: CYANOCOBALAMIN (VITAMIN B-12) 100 MCG TABLET PO SCH (07:56)
[2018-06-29] MEDS: MAGNESIUM OXIDE 400 MG TAB PO SCH ×2 (07:57→20:20)
[2018-06-29] MEDS: DOCUSATE SODIUM 100 MG CAP PO SCH ×2 (07:57→20:20)
[2018-06-29] MEDS: NICOTINE 14 MG/24 HR PATCH TD SCH (07:57)
[2018-06-29] MEDS: FINASTERIDE 5 MG TAB PO SCH (07:57)
--- NOTE | 2018-06-29 12:10 | Hospitalist Progress Note ---
Date of Service June 29, 2018 Assessment & Plan (1) COPD exacerbation: - Presented with SOB on exertion; has been requiring 3L via NC since admission. - CXR: severe pulmonary emphysema, no consolidation. - Influenza by PCR negative; blood cultures pending. - Droplet precautions ordered. - Continue Solu-medrol 40 mg IV q8hr. - Levaquin 750 mg IV q24hr for empiric coverage. - Duonebs scheduled QID with albuterol nebulizers prn. - Continue home Symbicort and Spiriva as prescribed. - Mucinex 1200 mg q12hr scheduled for cough. - Pro-calcitonin level pending. (2) Acute respiratory failure with hypoxia: - Currently requiring 3L via NC as noted above; tachypnea at admission with mild respiratory distress on exertion. - Likely related to COPD exacerbation. 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 Consider CT of chest for further evaluation. (3) Stage 4 lung cancer: - Follows with Dr. Anand. - Has progression of disease, has lost ~50 lbs. - Receiving Opdivo treatment; has appt with oncology scheduled on 07/06/18. - Consider heme/onc consult if there is concern for immunotherapy induced pneumonitis. - Continue home Methadone 10 mg QID for chronic pain control. (4) Bladder cancer: - H/o multiple TURBT procedures. (5) Essential (primary) hypertension: - Continue Amlodipine 5 mg PO daily. (6) Hyperlipidemia: - Continue Atorvastatin 80 mg qPM. (7) BPH (benign prostatic hyperplasia): - Continue Finasteride 5 mg qAM and Terazosin as prescribed. (8) Lipoma: - No need for acute intervention, will monitor. (9) Tobacco abuse: - Encourage tobacco cessation. - Nicotine patch ordered. (10) Severe protein-calorie malnutrition: - 50+ pound weight loss due to stage 4 lung cancer. - Encourage heart healthy diet. (11) Electrolyte abnormality: - Continue home KCl 20 mEq daily and Mag Oxide 400 mg BID. - No additional replacement required. - Monitor levels qAM. (12) DVT prophylaxis: - SCDs; Lovenox 40 mg subQ q24hr. Dispo: Med surg with telemetry for IV abx and IV steroids. Supervising Physician Co-Signing Physician Notes Attending Attestation - Chart reviewed in detail, and care plan d/w PA Yareli Reed. I agree w/ the tam components of her documentation. Patient continues with NC O2 requirement for COPD exacerbation. Cont IV steroids and abx along w/ supportive care. Agree w/ Ms. Reed - would have low threshold for CT chest but suspect this was an infection-induced COPD exacerbation. Sherif Lawler MD Subjective Pt. is unchanged overall, complains of SOB with very minimal exertion. He has SOB with sitting up in bed. Is requiring 2-3L via NC -- on room air at home. Has not walked far distances due to symptoms. Has cough with minimal sputum production -- on Mucinex scheduled q12hr for expectorant relief. Denies chest pain, nasal congestion, sore throat, LE edema, constipation or diarrhea, nausea or vomiting. Review of Systems All systems reviewed & are unremarkable except as noted in HPI & below Constitutional: + fatigue and + weakness; no fever and no chills Respiratory: + cough, + dyspnea and + dyspnea on exertion; no change in sputum and no wheezing Cardiovascular: + dyspnea on exertion; no chest pain, no palpitations, no syncope and no edema Gastrointestinal: no abdominal pain, no nausea and no constipation Genitourinary (Male): no difficulty urinating Musculoskeletal: no joint pain Allergy / Immunological: no rash Physical Exam 2 Vital Signs (Past 24 Hours): Last Vital Signs Temp 36.4 C L 06/29/18 11:35 Pulse 100 H 06/29/18 11:35 Resp 18 06/29/18 11:35 BP 120/68 06/29/18 11:35 Pulse Ox 95 06/29/18 11:35 Physical Exam: General: Resting comfortably in no apparent distress HEENT: NC/AT; PERRLA with EOMI; [place] conjunctiva, MMM. Neck: Supple and nontender Cardiac: RRR Lungs: on 3L via NC; coarse breath sounds throughout, wheezing in bilat lower lung kan. Abdomen: Bowel normoactive X 4; Nontender to palpation Extremities: Warm. No edema present Neuro: No focal weakness Skin: No rash Results & Data Laboratory Results 06/29/18 06/29/18 06/29/18 Range/Units 08:55 02:04 02:04 WBC 6.43 (4.8-10.8) K/uL RBC 4.14 L (4.7-6.1) M/uL Hgb 12.0 L (14.0-18.0) g/dL Hct 37.0 L (42-52) % MCV 89.4 (80-100) fL MCH 29.0 (25-34) pg MCHC 32.4 (32-36) g/dL RDW Std Deviation 67.3 H (36.4-46.3) fL RDW Coeff of James 20.3 H (11.5-14.5) % Plt Count 142 (130-400) K/uL MPV 9.2 (7.4-10.4) fL Immature Gran % (Auto) % Neut % (Auto) % Lymph % (Auto) % [place] % (Auto) % Eos % (Auto) % Baso % (Auto) % Immature Gran # (Auto) (0.00-0.02) K/uL Neut # (Auto) (1.4-6.5) K/uL Lymph # (Auto) (1.2-3.4) K/uL [place] # (Auto) (0.11-0.59) K/uL Eos # (Auto) (0-0.5) K/uL Baso # (Auto) (0-0.2) K/uL Anisocytosis PT (9.0-12.0) Seconds INR (0.9-1.1) APTT (21.0-31.0) Seconds PTT Ratio Sodium 136 (136-145) mmol/L Potassium 4.6 (3.5-5.1) mmol/L Chloride 100 (98-107) mmol/L Carbon Dioxide 32 (21-32) mmol/L Anion Gap 4.0 (3-11) BUN 13 D (7-18) mg/dl Creatinine 0.95 (0.6-1.4) mg/dl Est Cr Clr Drug Dosing 76.7 ml/min Est GFR ( Amer) 93.0 Est GFR (Non-Af Amer) 80.2 BUN/Creatinine Ratio 13.6 (10-20) Glucose 176 H (70-99) mg/dl Calcium 8.7 (8.5-10.1) mg/dl Magnesium 2.3 (1.8-2.4) mg/dl Total Bilirubin (0.2-1) mg/dl AST (15-37) U/L ALT (12-78) U/L Alkaline Phosphatase (45-117) U/L Troponin I < 0.015 (0-0.045) ng/ml Total Protein (6.4-8.2) gm/dl Albumin (3.4-5.0) gm/dl Globulin (2.5-4.0) gm/dl Albumin/Globulin Ratio (0.9-2) Urine Color Urine Appearance (Clear) Urine pH (4.5-7.5) Ur Specific [place] (1.000-1.030) Urine Protein (Negative) Urine Glucose (UA) (Negative) Urine Ketones (Negative) Urine Blood (Negative) Urine Nitrite (Negative) Urine Bilirubin (Negative) Urine Urobilinogen (Negative) Ur Leukocyte Esterase (Negative) Urine WBC (Auto) (0-5) /hpf Urine RBC (Auto) (0-4) /hpf U Hyaline Cast (Auto) (0-5) /lpf U Epithel Cells (Auto) (0-5) /lpf Urine Bacteria (Auto) (Negative) Nasal Screen MRSA (PCR) Negative (Negative) Influenza Type A (PCR) (Neg) Influenza Type B (PCR) (Neg) 06/28/18 06/28/18 06/28/18 Range/Units 19:44 14:35 13:40 WBC (4.8-10.8) K/uL RBC (4.7-6.1) M/uL Hgb (14.0-18.0) g/dL Hct (42-52) % MCV (80-100) fL MCH (25-34) pg MCHC (32-36) g/dL RDW Std Deviation (36.4-46.3) fL RDW Coeff of James (11.5-14.5) % Plt Count (130-400) K/uL MPV (7.4-10.4) fL Immature Gran % (Auto) % Neut % (Auto) % Lymph % (Auto) % [place] % (Auto) % Eos % (Auto) % Baso % (Auto) % Immature Gran # (Auto) (0.00-0.02) K/uL Neut # (Auto) (1.4-6.5) K/uL Lymph # (Auto) (1.2-3.4) K/uL [place] # (Auto) (0.11-0.59) K/uL Eos # (Auto) (0-0.5) K/uL Baso # (Auto) (0-0.2) K/uL Anisocytosis PT (9.0-12.0) Seconds INR (0.9-1.1) APTT (21.0-31.0) Seconds PTT Ratio Sodium 136 (136-145) mmol/L Potassium 4.1 (3.5-5.1) mmol/L Chloride 99 (98-107) mmol/L Carbon Dioxide 30 (21-32) mmol/L Anion Gap 7.0 (3-11) BUN 6 L (7-18) mg/dl Creatinine 0.76 (0.6-1.4) mg/dl Est Cr Clr Drug Dosing 95.9 ml/min Est GFR ( Amer) 106.4 Est GFR (Non-Af Amer) 91.8 BUN/Creatinine Ratio 7.7 L (10-20) Glucose 105 H (70-99) mg/dl Calcium 8.3 L (8.5-10.1) mg/dl Magnesium 1.7 L (1.8-2.4) mg/dl Total Bilirubin 0.4 (0.2-1) mg/dl AST 11 L (15-37) U/L ALT 23 (12-78) U/L Alkaline Phosphatase 83 (45-117) U/L Troponin I < 0.015 < 0.015 (0-0.045) ng/ml Total Protein 6.4 (6.4-8.2) gm/dl Albumin 2.8 L (3.4-5.0) gm/dl Globulin 3.6 (2.5-4.0) gm/dl Albumin/Globulin Ratio 0.8 L (0.9-2) Urine Color Yellow Urine Appearance Clear (Clear) Urine pH 6.0 (4.5-7.5) Ur Specific [place] 1.009 (1.000-1.030) Urine Protein Negative (Negative) Urine Glucose (UA) Negative (Negative) Urine Ketones Negative (Negative) Urine Blood Negative (Negative) Urine Nitrite Negative (Negative) Urine Bilirubin Negative (Negative) Urine Urobilinogen Negative (Negative) Ur Leukocyte Esterase Trace H (Negative) Urine WBC (Auto) 1-5 (0-5) /hpf Urine RBC (Auto) 0-4 (0-4) /hpf U Hyaline Cast (Auto) 0 (0-5) /lpf U Epithel Cells (Auto) 10-20 H (0-5) /lpf Urine Bacteria (Auto) Negative (Negative) Nasal Screen MRSA (PCR) (Negative) Influenza Type A (PCR) (Neg) Influenza Type B (PCR) (Neg) 06/28/18 06/28/18 06/28/18 Range/Units 13:40 13:40 12:50 WBC 10.06 (4.8-10.8) K/uL RBC 4.21 L (4.7-6.1) M/uL Hgb 12.1 L (14.0-18.0) g/dL Hct 37.4 L (42-52) % MCV 88.8 (80-100) fL MCH 28.7 (25-34) pg MCHC 32.4 (32-36) g/dL RDW Std Deviation 67.5 H (36.4-46.3) fL RDW Coeff of James 20.6 H (11.5-14.5) % Plt Count 146 (130-400) K/uL MPV 9.6 (7.4-10.4) fL Immature Gran % (Auto) 0.3 % Neut % (Auto) 79.7 % Lymph % (Auto) 9.9 % [place] % (Auto) 9.4 % Eos % (Auto) 0.5 % Baso % (Auto) 0.2 % Immature Gran # (Auto) 0.03 H (0.00-0.02) K/uL Neut # (Auto) 8.01 H (1.4-6.5) K/uL Lymph # (Auto) 1.00 L (1.2-3.4) K/uL [place] # (Auto) 0.95 H (0.11-0.59) K/uL Eos # (Auto) 0.05 (0-0.5) K/uL Baso # (Auto) 0.02 (0-0.2) K/uL Anisocytosis Present PT 10.7 (9.0-12.0) Seconds INR 1.1 (0.9-1.1) APTT 28.2 (21.0-31.0) Seconds PTT Ratio 1.1 Sodium (136-145) mmol/L Potassium (3.5-5.1) mmol/L Chloride (98-107) mmol/L Carbon Dioxide (21-32) mmol/L Anion Gap (3-11) BUN (7-18) mg/dl Creatinine (0.6-1.4) mg/dl Est Cr Clr Drug Dosing ml/min Est GFR ( Amer) Est GFR (Non-Af Amer) BUN/Creatinine Ratio (10-20) Glucose (70-99) mg/dl Calcium (8.5-10.1) mg/dl Magnesium (1.8-2.4) mg/dl Total Bilirubin (0.2-1) mg/dl AST (15-37) U/L ALT (12-78) U/L Alkaline Phosphatase (45-117) U/L Troponin I (0-0.045) ng/ml Total Protein (6.4-8.2) gm/dl Albumin (3.4-5.0) gm/dl Globulin (2.5-4.0) gm/dl Albumin/Globulin Ratio (0.9-2) Urine Color Urine Appearance (Clear) Urine pH (4.5-7.5) Ur Specific [place] (1.000-1.030) Urine Protein (Negative) Urine Glucose (UA) (Negative) Urine Ketones (Negative) Urine Blood (Negative) Urine Nitrite (Negative) Urine Bilirubin (Negative) Urine Urobilinogen (Negative) Ur Leukocyte Esterase (Negative) Urine WBC (Auto) (0-5) /hpf Urine RBC (Auto) (0-4) /hpf U Hyaline Cast (Auto) (0-5) /lpf U Epithel Cells (Auto) (0-5) /lpf Urine Bacteria (Auto) (Negative) Nasal Screen MRSA (PCR) (Negative) Influenza Type A (PCR) Neg for Influ A (Neg) Influenza Type B (PCR) Neg for Influ B (Neg) _ (1) Bladder cancer Bladder location: unspecified site Qualified Code(s): C67.9 - Malignant neoplasm of bladder, unspecified (2) Stage 4 lung cancer Laterality: unspecified laterality Qualified Code(s): C34.90 - Malignant neoplasm of unspecified part of unspecified bronchus or lung
[2018-06-29] MEDS: LEVOFLOXACIN/D5W 750 MG/150 ML BAG IV SCH (14:05)
[2018-06-29] MEDS: ENOXAPARIN INJ 40 MG/0.4 ML SYR SQ SCH (20:19)
[2018-06-29] MEDS: TERAZOSIN HCL 1 MG CAP PO SCH (20:21)
[2018-06-29] MEDS: AMLODIPINE BESYLATE 5 MG TAB PO SCH (20:21)
[2018-06-29] MEDS: ATORVASTATIN 40 MG TAB PO SCH (20:21)
[2018-06-29] MEDS ORDERED: SODIUM CHLORIDE 0.65% NA SOLN 45 ML (OCEAN) PRN ×2 (21:36→21:46)
[2018-06-30] MEDS: ALBUT/IPRATROP 3MG/0.5MG NEB 3 ML VIAL NEB SCH ×5 (03:07→19:35)
[2018-06-30] MEDS: METHADONE HCL 10 MG TAB PO SCH ×4 (05:29→23:17)
[2018-06-30] MEDS: methylPREDNISolone 40 MG in SYRINGE 0 ML IV SCH ×3 (05:30→21:00)
[2018-06-30] MEDS: DOCUSATE SODIUM 100 MG CAP PO SCH ×2 (07:37→20:52)
[2018-06-30] MEDS: ASCORBIC ACID 500 MG TAB PO SCH (07:37)
[2018-06-30] MEDS: FINASTERIDE 5 MG TAB PO SCH (07:37)
[2018-06-30] MEDS: guaiFENesin 600 MG TABCR PO SCH ×2 (07:37→20:52)
[2018-06-30] MEDS: CYANOCOBALAMIN (VITAMIN B-12) 100 MCG TABLET PO SCH (07:37)
[2018-06-30] MEDS: PYRIDOXINE HCL 50 MG TAB PO SCH (07:37)
[2018-06-30] MEDS: TIOTROPIUM BROMIDE 5 PUFF/90 MCG INH INH SCH (07:38)
[2018-06-30] MEDS: POTASSIUM CHLORIDE 20 MEQ TABCR PO SCH (07:38)
[2018-06-30] MEDS: PANTOprazole 40 MG TAB PO SCH (07:38)
[2018-06-30] MEDS: MAGNESIUM OXIDE 400 MG TAB PO SCH ×2 (07:38→20:54)
[2018-06-30] MEDS: BUDESONIDE/FORMOTEROL FUMARATE 160/4.5 60 PUFFS/INHALER INH SCH ×2 (07:39→20:54)
[2018-06-30 08:06] LABS: BUN Creatinine Ratio 21.8 (10-20); Calcium 8.8 mg/dl (8.5-10.1); Creatinine Clr Calc Pharmacy 90.3 ml/min; Est GFR (African American) 104.7; Est GFR (Non-African American) 90.3; Magnesium 2.3 mg/dl (1.8-2.4); Potassium 4.7 mmol/L (3.5-5.1)
[2018-06-30 08:22] LABS: Hematocrit (blood only) 39.2 % (42-52); Hemoglobin 12.5 g/dL (14.0-18.0); Mean Corpuscular Hgb Conc 31.9 g/dL (32-36); Mean Corpuscular Volume 89.5 fL (80-100); Mean Platelet Volume 9.7 fL (7.4-10.4); Platelet Count 166 K/uL (130-400); RDW Coefficient of Variation 20.6 % (11.5-14.5); RDW Standard Deviation 68.4 fL (36.4-46.3); Red Blood Count 4.38 M/uL (4.7-6.1); White Blood Count 16.51 K/uL (4.8-10.8)
[2018-06-30] MEDS: NICOTINE 14 MG/24 HR PATCH TD SCH (09:14)
[2018-06-30] MEDS ORDERED: OPTIRAY 320 125ml IV PRN (10:28)
--- NOTE | 2018-06-30 10:49 | CT Scan Report ---
CT ANGIOGRAM OF THE CHEST CLINICAL HISTORY: Dyspnea. Lung cancer. COMPARISON STUDY: Chest x-ray dated 06/28/2018. Chest CT scans dated 06/16/2018 and 03/16/2017. PET/CT dated 07/18/2015. TECHNIQUE: Following the IV administration of 114 cc of Optiray 320, CT angiogram of the chest was pe rformed from the upper abdomen to the thoracic inlet utilizing the pulmonary embolus protocol. Images are reviewed in the axial, sagittal, and coronal planes. 3-D MIPS images are created and assessed. I V contrast was administered without complication. A dose lowering technique was utilized adhering to the principles of ALARA. The examination is degraded by motion artifact, as well as by streak artifa ct from the arms which could not elevated above the chest. The examination is also degraded by subopt imal contrast opacification of the pulmonary arteries. CT DOSE: 927.59 mGy.cm FINDINGS: Thyroid: Imaged portions of the thyroid gland are normal in size and attenuation. Thoracic aorta: There is atherosclerotic calcification of the thoracic aorta, which is normal in tyson tigist and demonstrates standard 5-vessel variant arch anatomy. 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 No dissection is seen. Pulmonary vasculature: The pulmonary trunk is normal in caliber. There are no filling defects identif ied in main or lobar pulmonary branches to suggest pulmonary embolus. Evaluation of the segmental and subsegmental branches is severely degraded by motion artifact and suboptimal contrast opacification. Heart: The heart is normal in size and without pericardial effusion. The coronary arteries are densel y calcified. Lungs and pleural spaces: Evaluation of the lung parenchyma is degraded by motion artifact. Advanced and edematous change is noted. Large calcified granulomas in the right upper lobe and right lower lob e are similar to previous. There is no airspace consolidation typical for pneumonia or pleural effusi on. The trachea and central airways are clear. A spiculated lesion in the lingula is unchanged as see n on image #105. This measures 3.0 x 1.4 cm and tents the adjacent major fissure. A paraspinous lesio n the right lower lobe on image #215 and measures 3.1 x 2.3 cm. There is likely surrounding rounded a telectasis. Mediastinum: There are numerous mildly enlarged mediastinal lymph nodes. AP window nodes measure up t o 10 mm in short axis. A subcarinal node measures 12 mm short axis. Jasmina: Mildly enlarged hilar lymph nodes measure up to 15 mm in short axis. Axillae: There is no axillary lymphadenopathy. Upper abdomen: The partially visualized kidneys demonstrate cortical atrophy. Upper pole renal cysts measure up to 4.0 cm. No adrenal lesion is identified. Skeletal structures: The skeletal structures are osteopenic. There is a severe compression deformity of T7. Mild compression deformities are seen involving T5 and T6. Hyperkyphosis is noted in the thora cic spine. Chronic posttraumatic deformity is noted in the sternum. There are healed right posterior rib fractures. Degenerative change is noted in the shoulders. No lytic or blastic bony lesions are se en. IMPRESSION: 1. Streak and motion compromised examination. 2. There is no evidence of central pulmonary embolus in the main or lobar pulmonary arteries. Evaluat ion of the peripheral branches is significantly degraded by streak and motion artifact, as well as ingram boptimal contrast opacification. 3. Advanced emphysema. 4. There is no airspace consolidation or pleural effusion. 5. Pulmonary lesions are again seen in the lingula and right lower lobe. The right lower lobe lesion has modestly decreased in size from 06/16/2018. 6. A severe compression deformity of T7 is unchanged and may be pathologic. No retropulsed fragments are identified. 7. Additional findings as above. Electronically signed by: Reinaldo Monge M.D. 06/30/2018 10:48 AM
[2018-06-30] MEDS: LEVOFLOXACIN/D5W 750 MG/150 ML BAG IV SCH (13:36)
--- NOTE | 2018-06-30 14:52 | Hospitalist Progress Note ---
Date of Service June 30, 2018 Assessment & Plan (1) COPD exacerbation: - Requiring 2-3L since admission, mild improvement in symptoms. - CXR: severe pulmonary emphysema, no consolidation. - Chest CT: advanced emphysema, no consolidation or effusion noted. - Influenza by PCR and BC negative. - Continue Solu-medrol 40 mg IV q8hr. - Levaquin 750 mg IV q24hr for empiric coverage. - Duonebs scheduled QID with albuterol nebulizers prn. - Continue home Symbicort and Spiriva as prescribed. - Mucinex 1200 mg q12hr for cough. - Pro-calcitonin level was <0.05. (2) Acute respiratory failure with hypoxia: - Requiring 3L via NC as noted above; tachypnea at admission with mild respiratory distress on exertion. - Likely related to COPD exacerbation. - CT chest: negative for PE but was suboptimal visualization. - No evidence of immunotherapy induced pneumonitis on imaging. (3) Stage 4 lung cancer: - Follows with Dr. Anand. - Has had recent progression of disease, lost ~50 lbs. - Receiving Opdivo treatment; has appt with oncology scheduled on 07/06/18. - CT chest showed pulm lesions in lingula and RLL; RLL lesion decreased compared to May 2018. Also has severe compression deformity of T7. - Continue home Methadone 10 mg QID for chronic pain control. (4) Bladder cancer: - H/o multiple TURBT procedures. (5) Essential (primary) hypertension: - Continue Amlodipine 5 mg PO daily. (6) Hyperlipidemia: - Continue Atorvastatin 80 mg qPM. (7) BPH (benign prostatic hyperplasia): - Continue Finasteride 5 mg qAM and Terazosin as prescribed. (8) Lipoma: - On right side of abdomen. No need for acute intervention, will monitor. (9) Tobacco abuse: - Encourage tobacco cessation. - Nicotine patch ordered. (10) Severe protein-calorie malnutrition: - 50+ pound weight loss due to stage 4 lung cancer. - Encourage heart healthy diet. (11) Electrolyte abnormality: - Continue home KCl 20 mEq daily and Mag Oxide 400 mg BID. - No additional replacement required. - Monitor levels qAM. (12) DVT prophylaxis: - SCDs; Lovenox 40 mg subQ q24hr. FEN/GI: Protonix in setting of steroids. Heart healthy diet. No IVFs indicated. Dispo: Med surg for IV abx and IV steroids. Discharge pending improvement in dyspnea. Supervising Physician Co-Signing Physician Notes PA Supervision Note: I did not personally see or examine the patient today, but I verified all tam points of NICHO Zee's assessment and plan with the following exceptions/ additions: None Subjective Pt. is stable overall. He is requiring 3L via NC, cannot wean oxygen further down today. Has SOB with exertion but SOB at rest is improved. Cough also resolved but pt. complains of dry mouth. Last BM was yesterday; he feels bloated but is passin gas. Has been urinating frequently overnight, denies dysuria. CT PE this morning showed advanced emphysema, no evidence of PE but was suboptimal visualization, known pulmonary lesions and compression deformity at T7. Review of Systems All systems reviewed & are unremarkable except as noted in HPI & below Constitutional: + fatigue and + weakness; no fever and no chills Respiratory: + dyspnea on exertion; no cough, no change in sputum, no dyspnea and no wheezing Cardiovascular: no chest pain, no palpitations, no syncope and no edema Gastrointestinal: + constipation; no abdominal pain, no nausea and no vomiting Genitourinary (Male): + urinary frequency; no dysuria Musculoskeletal: no joint pain Allergy / Immunological: no rash Physical Exam 2 Vital Signs (Past 24 Hours): Last Vital Signs Temp 36.6 C 06/30/18 07:10 Pulse 102 H 06/30/18 11:16 Resp 24 06/30/18 11:16 BP 112/68 06/30/18 07:10 Pulse Ox 93 06/30/18 11:16 Physical Exam: General: Resting comfortably in no apparent distress HEENT: NC/AT; PERRLA with EOMI; [place] conjunctiva, MMM. Neck: Supple and nontender Cardiac: RRR Lungs: on 3L via NC; wheezing and rhonchi scattered throughout all lung kan. Abdomen: Bowel normoactive X 4; Large lipoma on right flank; Tenderness to palpation over left side of abdomen. Extremities: Warm. No edema present Neuro: No focal weakness Skin: No rash Results & Data Laboratory Results 06/30/18 06/30/18 06/29/18 Range/Units 07:01 07:01 15:32 WBC 16.51 H (4.8-10.8) K/uL RBC 4.38 L (4.7-6.1) M/uL Hgb 12.5 L (14.0-18.0) g/dL Hct 39.2 L (42-52) % MCV 89.5 (80-100) fL MCH 28.5 (25-34) pg MCHC 31.9 L (32-36) g/dL RDW Std Deviation 68.4 H (36.4-46.3) fL RDW Coeff of James 20.6 H (11.5-14.5) % Plt Count 166 (130-400) K/uL MPV 9.7 (7.4-10.4) fL Sodium 139 (136-145) mmol/L Potassium 4.7 (3.5-5.1) mmol/L Chloride 102 (98-107) mmol/L Carbon Dioxide 31 (21-32) mmol/L Anion Gap 6.0 (3-11) BUN 17 (7-18) mg/dl Creatinine 0.79 (0.6-1.4) mg/dl Est Cr Clr Drug Dosing 90.3 ml/min Est GFR ( Amer) 104.7 Est GFR (Non-Af Amer) 90.3 BUN/Creatinine Ratio 21.8 H (10-20) Glucose 151 H (70-99) mg/dl Calcium 8.8 (8.5-10.1) mg/dl Magnesium 2.3 (1.8-2.4) mg/dl Procalcitonin < 0.05 (0-0.5) ng/ml _ (1) Bladder cancer Bladder location: unspecified site Qualified Code(s): C67.9 - Malignant neoplasm of bladder, unspecified (2) Stage 4 lung cancer Laterality: unspecified laterality Qualified Code(s): C34.90 - Malignant neoplasm of unspecified part of unspecified bronchus or lung
[2018-06-30] MEDS: ENOXAPARIN INJ 40 MG/0.4 ML SYR SQ SCH (20:51)
[2018-06-30] MEDS: AMLODIPINE BESYLATE 5 MG TAB PO SCH (20:53)
[2018-06-30] MEDS: ATORVASTATIN 40 MG TAB PO SCH (20:53)
[2018-06-30] MEDS: TERAZOSIN HCL 1 MG CAP PO SCH (20:53)
[2018-07-01] MEDS: METHADONE HCL 10 MG TAB PO SCH ×4 (05:14→23:28)
[2018-07-01] MEDS: methylPREDNISolone 40 MG in SYRINGE 0 ML IV SCH ×2 (05:14→13:09)
[2018-07-01 06:59] LABS: Hemoglobin 13.2 g/dL (14.0-18.0); Mean Corpuscular Hgb Conc 31.4 g/dL (32-36); Mean Corpuscular Volume 90.9 fL (80-100); Mean Platelet Volume 9.3 fL (7.4-10.4); Platelet Count 175 K/uL (130-400); RDW Coefficient of Variation 20.8 % (11.5-14.5); RDW Standard Deviation 69.1 fL (36.4-46.3); Red Blood Count 4.62 M/uL (4.7-6.1); White Blood Count 16.01 K/uL (4.8-10.8)
[2018-07-01] MEDS: ALBUT/IPRATROP 3MG/0.5MG NEB 3 ML VIAL NEB SCH ×4 (07:24→19:48)
[2018-07-01 07:37] LABS: BUN Creatinine Ratio 22.7 (10-20); Calcium 8.8 mg/dl (8.5-10.1); Creatinine Clr Calc Pharmacy 86.9 ml/min; Est GFR (African American) 103.1; Magnesium 2.1 mg/dl (1.8-2.4); Potassium 4.7 mmol/L (3.5-5.1)
[2018-07-01] MEDS: BUDESONIDE/FORMOTEROL FUMARATE 160/4.5 60 PUFFS/INHALER INH SCH ×2 (07:55→20:47)
[2018-07-01] MEDS: TIOTROPIUM BROMIDE 5 PUFF/90 MCG INH INH SCH (07:55)
[2018-07-01] MEDS: guaiFENesin 600 MG TABCR PO SCH ×2 (07:56→20:46)
[2018-07-01] MEDS: PANTOprazole 40 MG TAB PO SCH (07:56)
[2018-07-01] MEDS: CYANOCOBALAMIN (VITAMIN B-12) 100 MCG TABLET PO SCH (07:57)
[2018-07-01] MEDS: DOCUSATE SODIUM 100 MG CAP PO SCH ×2 (07:57→20:45)
[2018-07-01] MEDS: PYRIDOXINE HCL 50 MG TAB PO SCH (07:57)
[2018-07-01] MEDS: POTASSIUM CHLORIDE 20 MEQ TABCR PO SCH (07:57)
[2018-07-01] MEDS: MAGNESIUM OXIDE 400 MG TAB PO SCH ×2 (07:58→20:43)
[2018-07-01] MEDS: ASCORBIC ACID 500 MG TAB PO SCH (07:58)
[2018-07-01] MEDS: NICOTINE 14 MG/24 HR PATCH TD SCH (07:58)
[2018-07-01] MEDS: FINASTERIDE 5 MG TAB PO SCH (07:58)
[2018-07-01] MEDS: levoFLOXacin 500 MG TAB PO SCH (11:22)
--- NOTE | 2018-07-01 13:27 | Hospitalist Progress Note ---
Date of Service July 01, 2018 Assessment & Plan (1) COPD exacerbation: - Requiring 3L via oxymask, no improvement in SOB over last 24 hours. - CXR: severe pulmonary emphysema, no consolidation. - Chest CT: advanced emphysema, no consolidation or effusion noted. - Influenza by PCR and BC negative. - Continue Solu-medrol - will increase to 60 mg IV q8hr. - Levaquin 750 mg IV q24hr for empiric coverage; consider addition of MRSA coverage. - Duonebs scheduled QID with albuterol nebulizers prn. - Continue home Symbicort as prescribed; hold Spiriva. - Mucinex 1200 mg q12hr for cough. - Pro-calcitonin level was <0.05; will continue abx in setting of acute hypoxia/ immunocompromised state. (2) Acute respiratory failure with hypoxia: - Requiring 3L via oxymask; in mild distress secondary to SOB, has tachypnea on exam. - Likely related to COPD exacerbation. - CT chest: negative for PE but was suboptimal visualization. - No evidence of immunotherapy induced pneumonitis on imaging. - Will order ABG in setting of ongoing respiratory failure. (3) Stage 4 lung cancer: - Follows with Dr. Anand. - Has had recent progression of disease, lost ~50 lbs. - Receiving Opdivo treatment; has appt with oncology scheduled on 07/06/18. - CT chest showed pulm lesions in lingula and RLL; RLL lesion decreased compared to May 2018. Also has severe compression deformity of T7. - Continue home Methadone 10 mg QID for chronic pain control. (4) Bladder cancer: - H/o multiple TURBT procedures. (5) Leukocytosis: - WBC was trending down but started to increase, likely related to IV steroids. - Continue current treatment with abx/steroids. - Monitor CBC qAM. (6) Essential (primary) hypertension: - Continue Amlodipine 5 mg PO daily. (7) Hyperlipidemia: - Continue Atorvastatin 80 mg qPM. (8) BPH (benign prostatic hyperplasia): - Continue Finasteride 5 mg qAM and Terazosin as prescribed. (9) Lipoma: - On right side of abdomen. No need for acute intervention, will monitor. (10) Tobacco abuse: - Encourage tobacco cessation. - Nicotine patch ordered. (11) Severe protein-calorie malnutrition: - 50+ pound weight loss due to stage 4 lung cancer. - Encourage heart healthy diet. (12) Electrolyte abnormality: - Continue home KCl 20 mEq daily and Mag Oxide 400 mg BID. - No additional replacement required. - Monitor levels qAM. (13) DVT prophylaxis: - SCDs; Lovenox 40 mg subQ q24hr. FEN/GI: Protonix in setting of steroids. Heart healthy diet. No IVFs indicated. Dispo: Med surg for IV abx and IV steroids. Discharge pending improvement in dyspnea. Supervising Physician Co-Signing Physician Notes PA Supervision Note: I did not personally see or examine the patient today, but I verified all tam points of NICHO Zee's assessment and plan with the following exceptions/ additions: None Subjective Pt. has ongoing shortness of breath at rest and with exertion. He has been requiring 3L via Oxymask. Pt. cannot remove oxymask for long periods of time due to development of severe SOB. He has a productive cough, increased sputum production after receiving Duonebs and using flutter valve. He has sinus congestion with post nasal drip. Denies chest pain, sinus pressure or headache, pharyngitis, LE edema. Has right sided rib pain -- h/o rib fractures, were healing on CT of chest yesterday. Review of Systems All systems reviewed & are unremarkable except as noted in HPI & below Constitutional: + fatigue and + weakness; no fever and no chills Ear, Nose, Mouth, Throat: + nasal congestion and + post nasal drip; no sinus pain/pressure Respiratory: + cough, + dyspnea, + dyspnea on exertion and + sputum production Cardiovascular: no chest pain, no palpitations and no edema Gastrointestinal: no abdominal pain, no nausea and no constipation Genitourinary (Male): no difficulty urinating Musculoskeletal: no joint pain Allergy / Immunological: no rash Physical Exam 2 Vital Signs (Past 24 Hours): Last Vital Signs Temp 36.5 C 07/01/18 11:23 Pulse 92 H 07/01/18 11:23 Resp 18 07/01/18 11:23 BP 135/69 07/01/18 11:23 Pulse Ox 92 07/01/18 11:23 Physical Exam: General: In mild distress 2/2 SOB, sitting on side of bed attempting to eat lunch. HEENT: NC/AT; PERRLA with EOMI; [place] conjunctiva, MMM. Neck: Supple and nontender Cardiac: RRR Lungs: oxymask at 3L; diminished breath sounds with faint wheezing noted in all lung kan. Abdomen: Bowel normoactive X 4; Large lipoma on right flank; no tenderness to palpation. Extremities: Warm. No edema present Neuro: No focal weakness Skin: No rash Results & Data Laboratory Results 07/01/18 07/01/18 Range/Units 06:43 06:43 WBC 16.01 H (4.8-10.8) K/uL RBC 4.62 L (4.7-6.1) M/uL Hgb 13.2 L (14.0-18.0) g/dL Hct 42.0 (42-52) % MCV 90.9 (80-100) fL MCH 28.6 (25-34) pg MCHC 31.4 L (32-36) g/dL RDW Std Deviation 69.1 H (36.4-46.3) fL RDW Coeff of James 20.8 H (11.5-14.5) % Plt Count 175 (130-400) K/uL MPV 9.3 (7.4-10.4) fL Sodium 136 (136-145) mmol/L Potassium 4.7 (3.5-5.1) mmol/L Chloride 101 (98-107) mmol/L Carbon Dioxide 31 (21-32) mmol/L Anion Gap 4.0 (3-11) BUN 18 (7-18) mg/dl Creatinine 0.82 (0.6-1.4) mg/dl Est Cr Clr Drug Dosing 86.9 ml/min Est GFR ( Amer) 103.1 Est GFR (Non-Af Amer) 89.0 BUN/Creatinine Ratio 22.7 H (10-20) Glucose 131 H (70-99) mg/dl Calcium 8.8 (8.5-10.1) mg/dl Magnesium 2.1 (1.8-2.4) mg/dl _ (1) Bladder cancer Bladder location: unspecified site Qualified Code(s): C67.9 - Malignant neoplasm of bladder, unspecified (2) Stage 4 lung cancer Laterality: unspecified laterality Qualified Code(s): C34.90 - Malignant neoplasm of unspecified part of unspecified bronchus or lung
[2018-07-01 17:50] LABS: Allen Test POS (Pos); HCO3 ABG 34 mmol/L (19-24); Oxygen Saturation ABG 89.3 % (90-95); PCO2 ABG 55 mmHg (35-46); PO2 ABG 58 mm/Hg (80-95)
[2018-07-01] MEDS: methylPREDNISolone 60 MG in SYRINGE 0 ML IV SCH (20:42)
[2018-07-01] MEDS: ENOXAPARIN INJ 40 MG/0.4 ML SYR SQ SCH (20:43)
[2018-07-01] MEDS: TERAZOSIN HCL 1 MG CAP PO SCH (20:44)
[2018-07-01] MEDS: AMLODIPINE BESYLATE 5 MG TAB PO SCH (20:45)
[2018-07-01] MEDS: ATORVASTATIN 40 MG TAB PO SCH (20:45)
[2018-07-02] MEDS: METHADONE HCL 10 MG TAB PO SCH ×4 (05:04→22:33)
[2018-07-02] MEDS: methylPREDNISolone 60 MG in SYRINGE 0 ML IV SCH ×3 (05:10→20:56)
[2018-07-02 05:53] LABS: Hematocrit (blood only) 41.7 % (42-52); Mean Corpuscular Hgb Conc 31.2 g/dL (32-36); Mean Corpuscular Volume 90.8 fL (80-100); Mean Platelet Volume 9.3 fL (7.4-10.4); Platelet Count 180 K/uL (130-400); RDW Coefficient of Variation 20.5 % (11.5-14.5); RDW Standard Deviation 68.5 fL (36.4-46.3); Red Blood Count 4.59 M/uL (4.7-6.1); White Blood Count 10.68 K/uL (4.8-10.8)
[2018-07-02 06:31] LABS: BUN Creatinine Ratio 22.2 (10-20); Calcium 8.9 mg/dl (8.5-10.1); Creatinine Clr Calc Pharmacy 86.5 ml/min; Est GFR (African American) 103.1; Potassium 4.6 mmol/L (3.5-5.1)
[2018-07-02] MEDS: ALBUT/IPRATROP 3MG/0.5MG NEB 3 ML VIAL NEB SCH ×4 (07:01→19:40)
[2018-07-02] MEDS: DOCUSATE SODIUM 100 MG CAP PO SCH ×2 (08:01→20:53)
[2018-07-02] MEDS: guaiFENesin 600 MG TABCR PO SCH ×2 (08:01→20:55)
[2018-07-02] MEDS: PANTOprazole 40 MG TAB PO SCH (08:02)
[2018-07-02] MEDS: POTASSIUM CHLORIDE 20 MEQ TABCR PO SCH (08:02)
[2018-07-02] MEDS: BUDESONIDE/FORMOTEROL FUMARATE 160/4.5 60 PUFFS/INHALER INH SCH ×2 (08:02→20:56)
[2018-07-02] MEDS: MAGNESIUM OXIDE 400 MG TAB PO SCH ×2 (08:02→20:55)
[2018-07-02] MEDS: CYANOCOBALAMIN (VITAMIN B-12) 100 MCG TABLET PO SCH (08:02)
[2018-07-02] MEDS: FINASTERIDE 5 MG TAB PO SCH (08:03)
[2018-07-02] MEDS: NICOTINE 14 MG/24 HR PATCH TD SCH (08:03)
[2018-07-02] MEDS: ASCORBIC ACID 500 MG TAB PO SCH (08:03)
[2018-07-02] MEDS: PYRIDOXINE HCL 50 MG TAB PO SCH (08:03)
[2018-07-02 08:04] LABS: Base Excess VBG 9.5 mEq/L; Oxygen Saturation VBG 68.3 %; pH VBG 7.39 (7.36-7.41)
[2018-07-02] MEDS: levoFLOXacin 500 MG TAB PO SCH (11:26)
--- NOTE | 2018-07-02 14:37 | Hospitalist Progress Note ---
Date of Service July 02, 2018 Assessment & Plan (1) COPD exacerbation: - Requiring 2L via oxymask with BiPAP at night; no significant improvement. - CXR: severe pulmonary emphysema, no consolidation. - Chest CT: advanced emphysema, no consolidation or effusion noted. - Influenza by PCR; BC negative. - Continue Solu-medrol - increased to 60 mg IV q8hr on 07/01. - Levaquin 750 mg IV q24hr (Day 5) - Duonebs scheduled QID with albuterol nebulizers prn. - Continue home Symbicort as prescribed; holding Spiriva. - Mucinex 1200 mg q12hr for cough. - Pro-calcitonin level was <0.05; plan to continue abx in setting of immunocompromised state. (2) Acute respiratory failure with hypoxia and hypercapnia: - Ongoing SOB at rest and with exertion related to COPD exacerbation; has been requiring Oxymask during the day, used BiPAP overnight. - ABG 07/01 showed hypercapnia (likely chronic CO2 retainer) and hypoxia. - Used BiPAP overnight with improvement, will continue qhs; will likely need overnight oximetry study prior to discharge (RT recommended ABG at bedtime and in morning to qualify for BiPAP qhs at home) - VBG this morning showed mild hypercapnia, overall improved. - CT chest: negative for PE but was suboptimal visualization. - No evidence of immunotherapy induced pneumonitis on imaging. (3) Stage 4 lung cancer: - Follows with Dr. Anand. - Has had recent progression of disease, lost ~50 lbs. - Receiving Opdivo treatment; has appt with oncology scheduled on 07/06/18. - CT chest showed pulm lesions in lingula and RLL; RLL lesion decreased compared to May 2018. Also has severe compression deformity of T7. - Continue home Methadone 10 mg QID for chronic pain control. (4) Bladder cancer: - H/o multiple TURBT procedures. (5) Leukocytosis: - WBC now improved, likely steroid induced. - Monitor CBC qAM. (6) Essential (primary) hypertension: - Continue Amlodipine 5 mg PO daily. - Has been hypertensive over last 24 hours, may be steroid induced -- continue to monitor. (7) Hyperlipidemia: - Continue Atorvastatin 80 mg qPM. (8) BPH (benign prostatic hyperplasia): - Continue Finasteride 5 mg qAM and Terazosin as prescribed. (9) Lipoma: - On right side of abdomen. No need for acute intervention, will monitor. (10) Tobacco abuse: - Encourage tobacco cessation. - Nicotine patch ordered. (11) Severe protein-calorie malnutrition: - 50+ pound weight loss due to stage 4 lung cancer. - Encourage heart healthy diet. (12) Electrolyte abnormality: - Continue home KCl 20 mEq daily and Mag Oxide 400 mg BID. - No additional replacement required. - Monitor levels qAM. (13) DVT prophylaxis: - SCDs; Lovenox 40 mg subQ q24hr. FEN/GI: Protonix in setting of steroids. Heart healthy diet. No IVFs indicated. Dispo: Med surg for acute respiratory failure. Will likely need overnight oximetry study and walking O2 test prior to discharge. Supervising Physician Co-Signing Physician Notes PA Supervision Note: I did not personally see or examine the patient today, but I verified all tam points of NICHO Zee's assessment and plan with the following exceptions/ additions: None Subjective Pt. is stable overall. He has severe SOB yesterday, ABG last evening showed hypercapnia (likely chronic) and hypoxia. BiPAP was applied overnight. Pt. states he slept very well overall and tolerated mask without issues. He has SOB this morning at rest and with exertion, is on oxymask at 2L. Has a cough, non- productive. Plan to continue BiPAP qhs to monitor for improvement. Pt. will need PT/OT for evaluation pending improvement in SOB. Review of Systems All systems reviewed & are unremarkable except as noted in HPI & below Constitutional: + fatigue and + weakness; no fever and no chills Respiratory: + cough, + dyspnea, + dyspnea on exertion and + wheezing; no change in sputum and no sputum production Cardiovascular: no chest pain, no palpitations and no edema Gastrointestinal: no abdominal pain, no nausea and no constipation Genitourinary (Male): no difficulty urinating Musculoskeletal: no joint pain Allergy / Immunological: no rash Physical Exam 2 Vital Signs (Past 24 Hours): Last Vital Signs Temp 36.7 C 07/02/18 11:26 Pulse 88 07/02/18 11:26 Resp 18 07/02/18 11:26 BP 153/81 H 07/02/18 11:26 Pulse Ox 96 07/02/18 11:26 Physical Exam: General: In no acute distress. HEENT: NC/AT; PERRLA with EOMI; [place] conjunctiva, MMM. Neck: Supple and nontender Cardiac: RRR Lungs: oxymask at 2L; wheezing throughout all lung kan. Abdomen: Bowel normoactive X 4; Large lipoma on right flank; no tenderness to palpation. Extremities: Warm. No edema present Neuro: No focal weakness Skin: No rash Results & Data Laboratory Results 07/02/18 07/02/18 07/02/18 Range/Units 07:55 05:23 05:23 WBC 10.68 (4.8-10.8) K/uL RBC 4.59 L (4.7-6.1) M/uL Hgb 13.0 L (14.0-18.0) g/dL Hct 41.7 L (42-52) % MCV 90.8 (80-100) fL MCH 28.3 (25-34) pg MCHC 31.2 L (32-36) g/dL RDW Std Deviation 68.5 H (36.4-46.3) fL RDW Coeff of James 20.5 H (11.5-14.5) % Plt Count 180 (130-400) K/uL MPV 9.3 (7.4-10.4) fL ABG pH (7.35-7.45) ABG pCO2 (35-46) mmHg ABG pO2 (80-95) mm/Hg ABG HCO3 (19-24) mmol/L ABG O2 Saturation (90-95) % ABG Base Excess (-9-1.8) mEq/L Doe Test (Pos) VBG pH 7.39 (7.36-7.41) VBG pCO2 63 H (38-50) mmHg VBG pO2 37 mmHg VBG HCO3 37 mmol/L VBG O2 Saturation 68.3 % VBG Base Excess 9.5 mEq/L Barometric Pressure 722.6 mm/Hg Oxygen Given Sodium 137 (136-145) mmol/L Potassium 4.6 (3.5-5.1) mmol/L Chloride 99 (98-107) mmol/L Carbon Dioxide 33 H (21-32) mmol/L Anion Gap 5.0 (3-11) BUN 18 (7-18) mg/dl Creatinine 0.82 (0.6-1.4) mg/dl Est Cr Clr Drug Dosing 86.5 ml/min Est GFR ( Amer) 103.1 Est GFR (Non-Af Amer) 89.0 BUN/Creatinine Ratio 22.2 H (10-20) Glucose 121 H (70-99) mg/dl Calcium 8.9 (8.5-10.1) mg/dl 07/01/18 Range/Units 17:37 WBC (4.8-10.8) K/uL RBC (4.7-6.1) M/uL Hgb (14.0-18.0) g/dL Hct (42-52) % MCV (80-100) fL MCH (25-34) pg MCHC (32-36) g/dL RDW Std Deviation (36.4-46.3) fL RDW Coeff of James (11.5-14.5) % Plt Count (130-400) K/uL MPV (7.4-10.4) fL ABG pH 7.40 (7.35-7.45) ABG pCO2 55 H (35-46) mmHg ABG pO2 58 L (80-95) mm/Hg ABG HCO3 34 H (19-24) mmol/L ABG O2 Saturation 89.3 L (90-95) % ABG Base Excess 7.2 H (-9-1.8) mEq/L Doe Test POS (Pos) VBG pH (7.36-7.41) VBG pCO2 (38-50) mmHg VBG pO2 mmHg VBG HCO3 mmol/L VBG O2 Saturation % VBG Base Excess mEq/L Barometric Pressure 728.7 mm/Hg Oxygen Given ROOM AIR Sodium (136-145) mmol/L Potassium (3.5-5.1) mmol/L Chloride (98-107) mmol/L Carbon Dioxide (21-32) mmol/L Anion Gap (3-11) BUN (7-18) mg/dl Creatinine (0.6-1.4) mg/dl Est Cr Clr Drug Dosing ml/min Est GFR ( Amer) Est GFR (Non-Af Amer) BUN/Creatinine Ratio (10-20) Glucose (70-99) mg/dl Calcium (8.5-10.1) mg/dl _ (1) Bladder cancer Bladder location: unspecified site Qualified Code(s): C67.9 - Malignant neoplasm of bladder, unspecified (2) Stage 4 lung cancer Laterality: unspecified laterality Qualified Code(s): C34.90 - Malignant neoplasm of unspecified part of unspecified bronchus or lung
[2018-07-02] MEDS: ENOXAPARIN INJ 40 MG/0.4 ML SYR SQ SCH (20:51)
[2018-07-02] MEDS: TERAZOSIN HCL 1 MG CAP PO SCH (20:53)
[2018-07-02] MEDS: ATORVASTATIN 40 MG TAB PO SCH (20:54)
[2018-07-02] MEDS: AMLODIPINE BESYLATE 5 MG TAB PO SCH (20:56)
[2018-07-03] MEDS: METHADONE HCL 10 MG TAB PO SCH ×4 (05:00→22:19)
[2018-07-03] MEDS: methylPREDNISolone 60 MG in SYRINGE 0 ML IV SCH ×3 (05:00→21:02)
[2018-07-03 05:49] LABS: Hematocrit (blood only) 42.1 % (42-52); Hemoglobin 13.7 g/dL (14.0-18.0); Mean Corpuscular Hgb Conc 32.5 g/dL (32-36); Mean Corpuscular Volume 89.2 fL (80-100); Mean Platelet Volume 9.5 fL (7.4-10.4); Platelet Count 181 K/uL (130-400); RDW Coefficient of Variation 20.1 % (11.5-14.5); RDW Standard Deviation 66.7 fL (36.4-46.3); Red Blood Count 4.72 M/uL (4.7-6.1); White Blood Count 9.96 K/uL (4.8-10.8)
[2018-07-03 06:13] LABS: BUN Creatinine Ratio 23.7 (10-20); Calcium 8.8 mg/dl (8.5-10.1); Creatinine Clr Calc Pharmacy 79.7 ml/min; Est GFR (African American) 99.7; Potassium 4.5 mmol/L (3.5-5.1)
[2018-07-03] MEDS: ALBUT/IPRATROP 3MG/0.5MG NEB 3 ML VIAL NEB SCH ×4 (07:22→19:35)
[2018-07-03] MEDS: CYANOCOBALAMIN (VITAMIN B-12) 100 MCG TABLET PO SCH (07:41)
[2018-07-03] MEDS: FINASTERIDE 5 MG TAB PO SCH (07:41)
[2018-07-03] MEDS: PYRIDOXINE HCL 50 MG TAB PO SCH (07:41)
[2018-07-03] MEDS: MAGNESIUM OXIDE 400 MG TAB PO SCH ×2 (07:41→21:01)
[2018-07-03] MEDS: POTASSIUM CHLORIDE 20 MEQ TABCR PO SCH (07:41)
[2018-07-03] MEDS: ASCORBIC ACID 500 MG TAB PO SCH (07:41)
[2018-07-03] MEDS: BUDESONIDE/FORMOTEROL FUMARATE 160/4.5 60 PUFFS/INHALER INH SCH ×2 (07:42→21:02)
[2018-07-03] MEDS: NICOTINE 14 MG/24 HR PATCH TD SCH (07:42)
[2018-07-03] MEDS: PANTOprazole 40 MG TAB PO SCH (07:43)
[2018-07-03] MEDS: guaiFENesin 600 MG TABCR PO SCH ×2 (07:43→21:01)
[2018-07-03] MEDS: DOCUSATE SODIUM 100 MG CAP PO SCH ×2 (07:47→20:59)
[2018-07-03] MEDS: levoFLOXacin 500 MG TAB PO SCH (11:05)
--- NOTE | 2018-07-03 17:46 | Hospitalist Progress Note ---
Date of Service July 03, 2018 Assessment & Plan (1) COPD exacerbation: - O2 requirements and SOB now improved. - CXR: severe pulmonary emphysema, no consolidation. - Chest CT: advanced emphysema, no consolidation or effusion noted. - Influenza by PCR; BC negative. - Continue Solu-medrol 60 mg IV q8hr. - Levaquin 500 mg q24hr (Day 6) - Duonebs scheduled QID with albuterol nebulizers prn. - Continue home Symbicort as prescribed; holding Spiriva. - Mucinex 1200 mg q12hr for cough. - Pro-calcitonin level was <0.05; plan to continue abx in setting of immunocompromised state. (2) Acute respiratory failure with hypoxia and hypercapnia: - SOB related to COPD exacerbation; now weaned to room air, maintain O2 sat ~90%. - ABG 07/01 showed hypercapnia (likely chronic CO2 retainer) and hypoxia. - Pt. refused BiPAP overnight due to lesion on forehead, encouraged use of BiPAP this evening. - BMP showed increased CO2 this morning -- likely retaining CO2 due to over oxygenation leading to decreased ventilatory drive. - CT chest: negative for PE but was suboptimal visualization. - No evidence of immunotherapy induced pneumonitis on imaging. (3) Stage 4 lung cancer: - Follows with Dr. Anand. - Has had recent progression of disease, lost ~50 lbs. - Receiving Opdivo treatment; has appt with oncology scheduled on 07/06/18. - CT chest showed pulm lesions in lingula and RLL; RLL lesion decreased compared to May 2018. Also has severe compression deformity of T7. - Continue home Methadone 10 mg QID for chronic pain control. (4) Bladder cancer: - H/o multiple TURBT procedures. (5) Leukocytosis: - WBC now WNL, was likely steroid induced. - Monitor CBC qAM. (6) Essential (primary) hypertension: - Continue Amlodipine 5 mg PO daily. (7) Hyperlipidemia: - Continue Atorvastatin 80 mg qPM. (8) BPH (benign prostatic hyperplasia): - Continue Finasteride 5 mg qAM and Terazosin as prescribed. (9) Lipoma: - On right side of abdomen. No need for acute intervention, will monitor. (10) Tobacco abuse: - Encourage tobacco cessation. - Nicotine patch ordered. (11) Severe protein-calorie malnutrition: - 50+ pound weight loss due to stage 4 lung cancer. - Encourage heart healthy diet. (12) Electrolyte abnormality: - Continue home KCl 20 mEq daily and Mag Oxide 400 mg BID. - No additional replacement required. - Monitor levels qAM. (13) DVT prophylaxis: - SCDs; Lovenox 40 mg subQ q24hr. FEN/GI: Protonix in setting of steroids. Heart healthy diet. No IVFs indicated. Dispo: Med surg for acute respiratory failure. Supervising Physician Co-Signing Physician Notes PA Supervision Note: I did not personally see or examine the patient today, but I verified all tam points of NICHO Zee's assessment and plan with the following exceptions/ additions: None Subjective Pt. is improved overall. Was on room air during afternoon rounds, O2 sat was 90% . Will continue room air as long as O2 sats remain ~90%. He states SOB is improved, denies SOB at rest. Does have SOB with mild exertion. Is eating/ drinking, denies nausea/vomiting, constipation. Ordered PT/OT as pt. is not ambulating often. Review of Systems All systems reviewed & are unremarkable except as noted in HPI & below Constitutional: + weakness; no fever and no chills Respiratory: + cough, + dyspnea on exertion and + wheezing; no dyspnea Cardiovascular: no chest pain, no palpitations and no edema Gastrointestinal: no abdominal pain, no nausea and no constipation Genitourinary (Male): no difficulty urinating Musculoskeletal: no joint pain Allergy / Immunological: no rash Physical Exam 2 Vital Signs (Past 24 Hours): Last Vital Signs Temp 36.7 C 07/03/18 15:00 Pulse 97 H 07/03/18 15:57 Resp 18 07/03/18 15:23 BP 134/89 07/03/18 15:00 Pulse Ox 99 07/03/18 15:23 Physical Exam: General: In no acute distress. HEENT: NC/AT; PERRLA with EOMI; [place] conjunctiva, MMM. Neck: Supple and nontender Cardiac: RRR Lungs: on room air; expiratory wheezing in all lung kan. Abdomen: Bowel normoactive X 4; Large lipoma on right flank; no tenderness to palpation. Extremities: Warm. No edema present Neuro: No focal weakness Skin: No rash Results & Data Laboratory Results 02/16/19 02/16/19 Range/Units 05:14 05:14 WBC 9.96 (4.8-10.8) K/uL RBC 4.72 (4.7-6.1) M/uL Hgb 13.7 L (14.0-18.0) g/dL Hct 42.1 (42-52) % MCV 89.2 (80-100) fL MCH 29.0 (25-34) pg MCHC 32.5 (32-36) g/dL RDW Std Deviation 66.7 H (36.4-46.3) fL RDW Coeff of James 20.1 H (11.5-14.5) % Plt Count 181 (130-400) K/uL MPV 9.5 (7.4-10.4) fL Sodium 138 (136-145) mmol/L Potassium 4.5 (3.5-5.1) mmol/L Chloride 98 (98-107) mmol/L Carbon Dioxide 36 H (21-32) mmol/L Anion Gap 4.0 (3-11) BUN 21 H (7-18) mg/dl Creatinine 0.89 (0.6-1.4) mg/dl Est Cr Clr Drug Dosing 79.7 ml/min Est GFR ( Amer) 99.7 Est GFR (Non-Af Amer) 86.0 BUN/Creatinine Ratio 23.7 H (10-20) Glucose 127 H (70-99) mg/dl Calcium 8.8 (8.5-10.1) mg/dl _ (1) Bladder cancer Bladder location: unspecified site Qualified Code(s): C67.9 - Malignant neoplasm of bladder, unspecified (2) Stage 4 lung cancer Laterality: unspecified laterality Qualified Code(s): C34.90 - Malignant neoplasm of unspecified part of unspecified bronchus or lung
[2018-07-03] MEDS: ENOXAPARIN INJ 40 MG/0.4 ML SYR SQ SCH (20:58)
[2018-07-03] MEDS: ATORVASTATIN 40 MG TAB PO SCH (21:00)
[2018-07-03] MEDS: TERAZOSIN HCL 1 MG CAP PO SCH (21:00)
[2018-07-03] MEDS: AMLODIPINE BESYLATE 5 MG TAB PO SCH (21:05)
[2018-07-04] MEDS: METHADONE HCL 10 MG TAB PO SCH ×4 (04:29→23:13)
[2018-07-04] MEDS: methylPREDNISolone 60 MG in SYRINGE 0 ML IV SCH (04:30)
[2018-07-04] MEDS: ALBUT/IPRATROP 3MG/0.5MG NEB 3 ML VIAL NEB SCH ×5 (05:14→19:30)
[2018-07-04 06:58] LABS: Hematocrit (blood only) 41.2 % (42-52); Hemoglobin 13.4 g/dL (14.0-18.0); Mean Corpuscular Hgb Conc 32.5 g/dL (32-36); Mean Platelet Volume 9.1 fL (7.4-10.4); Platelet Count 194 K/uL (130-400); RDW Coefficient of Variation 20.3 % (11.5-14.5); Red Blood Count 4.63 M/uL (4.7-6.1); White Blood Count 10.28 K/uL (4.8-10.8)
[2018-07-04 07:32] LABS: BUN Creatinine Ratio 30.4 (10-20); Calcium 8.7 mg/dl (8.5-10.1); Creatinine Clr Calc Pharmacy 79.9 ml/min; Est GFR (African American) 100.2; Est GFR (Non-African American) 86.4; Potassium 4.3 mmol/L (3.5-5.1)
[2018-07-04 07:34] LABS: Albumin Globulin Ratio 0.8 (0.9-2); Bilirubin,Total 0.4 mg/dl (0.2-1); Globulin 3.5 gm/dl (2.5-4.0); Total Protein 6.5 gm/dl (6.4-8.2)
[2018-07-04] MEDS: DOCUSATE SODIUM 100 MG CAP PO SCH ×2 (07:44→21:12)
[2018-07-04] MEDS: BUDESONIDE/FORMOTEROL FUMARATE 160/4.5 60 PUFFS/INHALER INH SCH ×2 (07:44→21:13)
[2018-07-04] MEDS: CYANOCOBALAMIN (VITAMIN B-12) 100 MCG TABLET PO SCH (07:45)
[2018-07-04] MEDS: PANTOprazole 40 MG TAB PO SCH (07:45)
[2018-07-04] MEDS: guaiFENesin 600 MG TABCR PO SCH ×2 (07:45→21:10)
[2018-07-04] MEDS: PYRIDOXINE HCL 50 MG TAB PO SCH (07:45)
[2018-07-04] MEDS: ASCORBIC ACID 500 MG TAB PO SCH (07:45)
[2018-07-04] MEDS: FINASTERIDE 5 MG TAB PO SCH (07:46)
[2018-07-04] MEDS: POTASSIUM CHLORIDE 20 MEQ TABCR PO SCH (07:46)
[2018-07-04] MEDS: MAGNESIUM OXIDE 400 MG TAB PO SCH ×2 (07:47→21:12)
[2018-07-04] MEDS: NICOTINE 14 MG/24 HR PATCH TD SCH (07:47)
[2018-07-04] MEDS: levoFLOXacin 500 MG TAB PO SCH (11:28)
[2018-07-04] MEDS ORDERED: levoFLOXacin 500 MG TAB PO SCH (12:04)
[2018-07-04] MEDS: methylPREDNISolone 40 MG in SYRINGE 0 ML IV SCH ×2 (12:26→21:10)
--- NOTE | 2018-07-04 14:33 | Hospitalist Progress Note ---
Date of Service July 04, 2018 Assessment & Plan (1) COPD exacerbation: - Now weaned to room air; SOB at rest resolved. - CXR: severe pulmonary emphysema, no consolidation. - Chest CT: advanced emphysema, no consolidation or effusion noted. - Influenza by PCR; BC negative. - Continue Solu-medrol- decrease to 40 mg IV q8hr. - Levaquin 500 mg q24hr (Day 7 of 7) - Duonebs scheduled QID with albuterol nebulizers prn. - Continue home Symbicort as prescribed; holding Spiriva. - Mucinex 1200 mg q12hr for cough. - Pro-calcitonin level was <0.05; plan to continue abx in setting of immunocompromised state. (2) Acute respiratory failure with hypoxia and hypercapnia: - SOB related to COPD exacerbation; now weaned to room air, maintain O2 sat ~90%. - ABG 07/01 showed hypercapnia (likely chronic CO2 retainer) and hypoxia. - Pt. refused BiPAP last two evenings. - BMP this morning showed downtrending CO2 -- is likely retaining CO2 due to over oxygenation leading to decreased ventilatory drive. - CT chest: negative for PE but was suboptimal visualization. - No evidence of immunotherapy induced pneumonitis on imaging. (3) Stage 4 lung cancer: - Follows with Dr. Anand. - Has had recent progression of disease, lost ~50 lbs. - Receiving Opdivo treatment; has appt with oncology scheduled on 07/06/18. - CT chest showed pulm lesions in lingula and RLL; RLL lesion decreased compared to May 2018. Also has severe compression deformity of T7. - Continue home Methadone 10 mg QID for chronic pain control. (4) Bladder cancer: - H/o multiple TURBT procedures. (5) Leukocytosis: - WBC now WNL, was likely steroid induced. - Monitor CBC qAM. (6) Essential (primary) hypertension: - Continue Amlodipine 5 mg PO daily. (7) Hyperlipidemia: - Continue Atorvastatin 80 mg qPM. (8) BPH (benign prostatic hyperplasia): - Continue Finasteride 5 mg qAM and Terazosin as prescribed. (9) Lipoma: - On right side of abdomen. No need for acute intervention, will monitor. (10) Tobacco abuse: - Encourage tobacco cessation. - Nicotine patch ordered. (11) Severe protein-calorie malnutrition: - 50+ pound weight loss due to stage 4 lung cancer. - Encourage heart healthy diet. (12) Electrolyte abnormality: - Continue home KCl 20 mEq daily and Mag Oxide 400 mg BID. - No additional replacement required. - Monitor levels qAM. (13) DVT prophylaxis: - SCDs; Lovenox 40 mg subQ q24hr. FEN/GI: Protonix in setting of steroids. Dispo: Med surg. PT/OT recommending home health, will need arranged. Discharge likely over next 48 hours pending increased ambulation, improvement in SOB. 2- step walking test ordered in the AM. Supervising Physician Co-Signing Physician Notes PA Supervision Note: I did not personally see or examine the patient today, but I verified all tam points of NICHO Zee's assessment and plan with the following exceptions/additions: None Subjective Pt. is doing well overall today. Has been stable on room air with O2 sats ~90%. He denies SOB at rest. Has not ambulated long distances to evaluate for SOB with exertion. Refused BiPAP last night due to pain/irritation on nose. He has a productive cough, thick white sputum. PT/OT ordered -- discharge pending evaluation. Will also need walking test to determine need for O2. Review of Systems All systems reviewed & are unremarkable except as noted in HPI & below Constitutional: + weakness; no fever and no chills Respiratory: + cough, + sputum production and + wheezing; no change in sputum, no dyspnea and no dyspnea on exertion Cardiovascular: no chest pain, no palpitations, no syncope and no edema Gastrointestinal: no abdominal pain, no nausea and no constipation Genitourinary (Male): no difficulty urinating Musculoskeletal: no joint pain Allergy / Immunological: no rash Physical Exam Vital Signs (Past 24 Hours): Last Vital Signs Temp 36.7 C 07/04/18 11:00 Pulse 102 H 07/04/18 11:08 Resp 18 07/04/18 11:08 BP 142/81 H 07/04/18 11:00 Pulse Ox 94 07/04/18 11:14 Physical Exam: General: In no acute distress. HEENT: NC/AT; PERRLA with EOMI; [place] conjunctiva, MMM. Neck: Supple and nontender Cardiac: RRR Lungs: on room air; diminished throughout, mild wheezing in all lung kan. Abdomen: Bowel normoactive X 4; Large lipoma on right flank; no tenderness to palpation. Extremities: Warm. No edema present Neuro: No focal weakness Skin: No rash Results & Data Laboratory Results 07/04/18 07/04/18 Range/Units 06:24 06:24 WBC 10.28 (4.8-10.8) K/uL RBC 4.63 L (4.7-6.1) M/uL Hgb 13.4 L (14.0-18.0) g/dL Hct 41.2 L (42-52) % MCV 89.0 (80-100) fL MCH 28.9 (25-34) pg MCHC 32.5 (32-36) g/dL RDW Std Deviation 67.0 H (36.4-46.3) fL RDW Coeff of James 20.3 H (11.5-14.5) % Plt Count 194 (130-400) K/uL MPV 9.1 (7.4-10.4) fL Sodium 136 (136-145) mmol/L Potassium 4.3 (3.5-5.1) mmol/L Chloride 97 L (98-107) mmol/L Carbon Dioxide 33 H (21-32) mmol/L Anion Gap 6.0 (3-11) BUN 27 H (7-18) mg/dl Creatinine 0.88 (0.6-1.4) mg/dl Est Cr Clr Drug Dosing 79.9 ml/min Est GFR ( Amer) 100.2 Est GFR (Non-Af Amer) 86.4 BUN/Creatinine Ratio 30.4 H (10-20) Glucose 134 H (70-99) mg/dl Calcium 8.7 (8.5-10.1) mg/dl Total Bilirubin 0.4 (0.2-1) mg/dl AST 19 (15-37) U/L ALT 32 (12-78) U/L Alkaline Phosphatase 69 (45-117) U/L Total Protein 6.5 (6.4-8.2) gm/dl Albumin 3.0 L (3.4-5.0) gm/dl Globulin 3.5 (2.5-4.0) gm/dl Albumin/Globulin Ratio 0.8 L (0.9-2) (1) Bladder cancer Bladder location: unspecified site Qualified Code(s): C67.9 - Malignant neoplasm of bladder, unspecified (2) Stage 4 lung cancer Laterality: unspecified laterality Qualified Code(s): C34.90 - Malignant neoplasm of unspecified part of unspecified bronchus or lung
[2018-07-04] MEDS: ENOXAPARIN INJ 40 MG/0.4 ML SYR SQ SCH (19:58)
[2018-07-04] MEDS: ATORVASTATIN 40 MG TAB PO SCH (21:11)
[2018-07-04] MEDS: TERAZOSIN HCL 1 MG CAP PO SCH (21:11)
[2018-07-04] MEDS: AMLODIPINE BESYLATE 5 MG TAB PO SCH (21:15)
[2018-07-05] MEDS: METHADONE HCL 10 MG TAB PO SCH ×4 (05:08→22:38)
[2018-07-05] MEDS: methylPREDNISolone 40 MG in SYRINGE 0 ML IV SCH ×2 (05:19→17:39)
[2018-07-05 05:59] LABS: Hematocrit (blood only) 44.8 % (42-52); Hemoglobin 14.3 g/dL (14.0-18.0); Mean Corpuscular Hgb Conc 31.9 g/dL (32-36); Mean Corpuscular Volume 89.8 fL (80-100); Mean Platelet Volume 9.1 fL (7.4-10.4); Platelet Count 194 K/uL (130-400); RDW Coefficient of Variation 20.4 % (11.5-14.5); RDW Standard Deviation 67.2 fL (36.4-46.3); Red Blood Count 4.99 M/uL (4.7-6.1); White Blood Count 12.55 K/uL (4.8-10.8)
[2018-07-05 06:30] LABS: Calcium 8.8 mg/dl (8.5-10.1); Creatinine Clr Calc Pharmacy 76.4 ml/min; Est GFR (African American) 96.6; Est GFR (Non-African American) 83.4; Magnesium 2.3 mg/dl (1.8-2.4); Potassium 4.6 mmol/L (3.5-5.1)
[2018-07-05] MEDS: ALBUT/IPRATROP 3MG/0.5MG NEB 3 ML VIAL NEB SCH ×4 (07:06→19:21)
[2018-07-05] MEDS: POTASSIUM CHLORIDE 20 MEQ TABCR PO SCH (08:16)
[2018-07-05] MEDS: FINASTERIDE 5 MG TAB PO SCH (08:16)
[2018-07-05] MEDS: NICOTINE 14 MG/24 HR PATCH TD SCH (08:16)
[2018-07-05] MEDS: PANTOprazole 40 MG TAB PO SCH (08:16)
[2018-07-05] MEDS: BUDESONIDE/FORMOTEROL FUMARATE 160/4.5 60 PUFFS/INHALER INH SCH ×2 (08:16→21:29)
[2018-07-05] MEDS: MAGNESIUM OXIDE 400 MG TAB PO SCH ×2 (08:16→23:00)
[2018-07-05] MEDS: guaiFENesin 600 MG TABCR PO SCH ×2 (08:16→21:32)
[2018-07-05] MEDS: CYANOCOBALAMIN (VITAMIN B-12) 100 MCG TABLET PO SCH (08:16)
[2018-07-05] MEDS: DOCUSATE SODIUM 100 MG CAP PO SCH ×2 (08:16→21:31)
[2018-07-05] MEDS: PYRIDOXINE HCL 50 MG TAB PO SCH (08:17)
[2018-07-05] MEDS: ASCORBIC ACID 500 MG TAB PO SCH (08:17)
--- NOTE | 2018-07-05 13:50 | XRay Report ---
XR chest 2V routine CLINICAL HISTORY: COPD exacerbation, purulent sputum COMPARISON STUDY: 06/28/2018, CT angiography dated 06/30/2018 . FINDINGS: the cardiac images so contours remain stable. There is radiographic evidence of underlying pulmonary emphysema. There is no acute parenchymal consolidation. There are old bilateral rib fractur es. There is stable blunting of the right lateral costophrenic angle. There is a right middle lobe gr anuloma. There is a stable indeterminate 2 cm lingular nodule. There is a persistent severe midthorac ic compression fracture[ IMPRESSION: 1. Pulmonary emphysema 2. Old bilateral rib fractures 3. No evidence of acute rectal consolidation 4. Stable indeterminate 19 mm pulmonary nodule within the lingula Electronically signed by: Shen Orona M.D. 07/05/2018 1:48 PM
--- NOTE | 2018-07-05 18:26 | Hospitalist Progress Note ---
Date of Service July 05, 2018 Assessment & Plan (1) COPD exacerbation: Improving. Wean steroids to 40mg q12h, then plan for oral prednisone in AM. He finished his levaquin course yesterday. Continue inhalers and nebs. Continue mucinex. Add tesalon q8h. 2-step today demonstrates no need for ambulatory oxygen. Will repeat the cxr today to ensure he did not develop pneumonia in the midst of the COPD flare. Present on Admission?: Yes (2) Acute respiratory failure with hypoxia and hypercapnia: 2nd to COPD exacerbation - resolved. Present on Admission?: Yes (3) Stage 4 lung cancer: CT chest showed pulm lesions in lingula and RLL; RLL lesion decreased compared to May 2018. Also has severe compression deformity of T7. It is possible this is a metastatic/pathologic fracture. Takes opdivo chemo for the cancer. Managed by Dr. Anand. Continue Methadone 10 mg QID for chronic pain syndome. (4) Bladder cancer: s/p multiple TURBT procedures in the past. NO urinary symptoms at this time. (5) Essential (primary) hypertension: Controlled at this time. (6) Hyperlipidemia: Statin. (7) BPH (benign prostatic hyperplasia): Finasteride 5 mg qAM and Terazosin. (8) Tobacco abuse: Nicoderm. Counseled to quit. (9) Severe protein-calorie malnutrition: 50+ pound weight loss due to stage 4 lung cancer. Patient is eating well at this time - likely due to steroids. (10) Electrolyte abnormality: Lytes stable at this time. (11) DVT prophylaxis: lovenox. anticipate d/c home tomorrow. social work aware of possible transportation issues. Subjective patient feels "a world better" with respect to his breathing. however, he continues with cough/congestion. coughing up copious amounts of white sputum. eating well. no fevers. tele stable. Constitutional: no fever, no chills, no body aches, no fatigue and no anorexia Respiratory: no hemoptysis Cardiovascular: no chest pain Gastrointestinal: + constipation (finally had bowel movement earlier today ); no abdominal pain, no nausea and no vomiting Physical Exam 2 Vital Signs (Past 24 Hours): Last Vital Signs Temp 36.7 C 07/05/18 15:31 Pulse 93 H 07/05/18 15:48 Resp 18 07/05/18 15:48 BP 111/72 07/05/18 15:31 Pulse Ox 96 07/05/18 15:48 Constitutional: well developed and well nourished; no acute distress coughing ENMT: external ear and nose normal, oropharynx normal Respiratory: normal respiratory effort; no labored breathing Auscultation: + wheezes (minimal b/l ); no rales Cardiovascular: Rate/Rhythm: regular rhythm and + tachycardic Heart Sounds : normal S1 and normal S2; no murmur Vessels: posterior tibial pulses present and dorsalis pedis pulses present; no JVD Extremities: no edema Gastrointestinal (Abdomen): normal bowel sounds, soft, nontender, no hepatosplenomegaly Psychiatric: A+Ox3, euthymic affect Results & Data Laboratory Results Laboratory Results - last 24 hr 07/05/18 07/05/18 05:36 05:36 WBC 12.55 H RBC 4.99 Hgb 14.3 Hct 44.8 MCV 89.8 MCH 28.7 MCHC 31.9 L RDW Std Deviation 67.2 H RDW Coeff of James 20.4 H Plt Count 194 MPV 9.1 Sodium 138 Potassium 4.6 Chloride 101 Carbon Dioxide 33 H Anion Gap 4.0 BUN 26 H Creatinine 0.92 Est Cr Clr Drug Dosing 76.4 Est GFR ( Amer) 96.6 Est GFR (Non-Af Amer) 83.4 BUN/Creatinine Ratio 28.0 H Glucose 114 H Calcium 8.8 Magnesium 2.3 _ (1) Stage 4 lung cancer Laterality: unspecified laterality Qualified Code(s): C34.90 - Malignant neoplasm of unspecified part of unspecified bronchus or lung (2) Bladder cancer Bladder location: unspecified site Qualified Code(s): C67.9 - Malignant neoplasm of bladder, unspecified (3) Hyperlipidemia Hyperlipidemia type: mixed hyperlipidemia Qualified Code(s): E78.2 - Mixed hyperlipidemia (4) BPH (benign prostatic hyperplasia) Lower urinary tract symptom presence: symptoms absent Qualified Code(s): N40.0 - Benign prostatic hyperplasia without lower urinary tract symptoms
[2018-07-05] MEDS: ENOXAPARIN INJ 40 MG/0.4 ML SYR SQ SCH (21:28)
[2018-07-05] MEDS: BENZONATATE 100 MG CAPSULE PO SCH (21:28)
[2018-07-05] MEDS: TERAZOSIN HCL 1 MG CAP PO SCH (21:30)
[2018-07-05] MEDS: ATORVASTATIN 40 MG TAB PO SCH (21:31)
[2018-07-05] MEDS: AMLODIPINE BESYLATE 5 MG TAB PO SCH (21:32)
[2018-07-06] MEDS ORDERED: ALBUTEROL HFA 8 GM INHALER INH PRN (00:01)
[2018-07-06] MEDS: METHADONE HCL 10 MG TAB PO SCH ×2 (05:25→10:57)
[2018-07-06] MEDS: methylPREDNISolone 40 MG in SYRINGE 0 ML IV SCH (05:25)
[2018-07-06] MEDS: ALBUT/IPRATROP 3MG/0.5MG NEB 3 ML VIAL NEB SCH ×2 (07:05→10:59)
[2018-07-06] MEDS: DOCUSATE SODIUM 100 MG CAP PO SCH (09:15)
[2018-07-06] MEDS: MAGNESIUM OXIDE 400 MG TAB PO SCH (09:15)
[2018-07-06] MEDS: POTASSIUM CHLORIDE 20 MEQ TABCR PO SCH (09:15)
[2018-07-06] MEDS: guaiFENesin 600 MG TABCR PO SCH (09:15)
[2018-07-06] MEDS: NICOTINE 14 MG/24 HR PATCH TD SCH (09:15)
[2018-07-06] MEDS: CYANOCOBALAMIN (VITAMIN B-12) 100 MCG TABLET PO SCH (09:16)
[2018-07-06] MEDS: BUDESONIDE/FORMOTEROL FUMARATE 160/4.5 60 PUFFS/INHALER INH SCH (09:16)
[2018-07-06] MEDS: PYRIDOXINE HCL 50 MG TAB PO SCH (09:16)
[2018-07-06] MEDS: ASCORBIC ACID 500 MG TAB PO SCH (09:16)
[2018-07-06] MEDS: BENZONATATE 100 MG CAPSULE PO SCH ×2 (09:16→13:19)
[2018-07-06] MEDS: PANTOprazole 40 MG TAB PO SCH (09:16)
[2018-07-06] MEDS: FINASTERIDE 5 MG TAB PO SCH (09:16)
[2018-07-06] MEDS ORDERED: FLUTICASONE PROPIONATE NA SPR 16 GM BTL SCH (09:45)
[2018-07-06] MEDS ORDERED: FEXOFENADINE HCL 180 MG TAB PO SCH (09:45)
--- NOTE | 2018-07-06 10:22 | CT Scan Report ---
CT head/brain wo con CLINICAL HISTORY: Tenoner Operator numbness, known lung carcinoma. Evaluate for metastatic disease. COMPARISON STUDY: No previous studies for comparison. TECHNIQUE: Axial CT of the brain is performed from the vertex to the skull base. IV contrast was not administered for this examination. A dose lowering technique was utilized adhering to the principles of ALARA. CT DOSE: 1132.15 mGy.cm FINDINGS: No intra or extra-axial mass lesions are visualized. There is no CT evidence of acute cortical infarc tion. There is no evidence of midline shift. There is no acute hemorrhage. No calvarial fractures ar e visualized. There are patchy white matter hypodensities likely on a small vessel basis. There is an old left occi pital lobe infarct There is no evidence of pathologic ventricular dilatation. There is no evidence of acute sinusitis IMPRESSION: 1. No acute intracranial findings 2. Old left occipital lobe infarct 3. No evidence of metastatic disease given the limitations of a noncontrast study. Electronically signed by: Shen Orona M.D. 07/06/2018 10:20 AM
--- NOTE | 2018-07-06 10:33 | CT Scan Report ---
CT cervical spine wo con CLINICAL HISTORY: 73 years-old Male presenting with lung cancer; eval for c-spine mets. TECHNIQUE: Multidetector CT of the cervical spine was performed without the use of intravenous contra st. IV contrast: None. One or more dose lowering techniques were used consistent with the principles of ALARA (as low as reasonably achievable), including automatic exposure control, mA or kV adjustment to individual patient size, and/or use of iterative reconstruction. COMPARISON: PET/CT from 02/01/2018. CT DOSE (mGy.cm): The estimated cumulative dose is 1132.15. 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 Vertebral bodies maintain normal height and alignment. Intervertebral disc heights preserved. Small disc osteophyte complexes noted at C3-4, C5-6, and C6-7. No posterior bony s purring. No osseous spinal canal and neural foraminal narrowing. No acute fracture or subluxation. Mi ld degenerative changes at the atlantodental articulation. 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 Visualized portion of the skull base intact. Lung apices demonstrate advanced centri lobular emphysema. Atherosclerosis. IMPRESSION: 1. No acute osseous injury of the cervical spine. 2. Mild multilevel degenerative changes. 3. Emphysema. Electronically signed by: Bobby Luna M.D. 07/06/2018 10:32 AM
--- NOTE | 2018-07-12 22:08 | Discharge Summary ---
Date of Service date of admission - June 28, 2018 date of discharge - July 06, 2018 Admission HPI Per Admitting Provider Mr. Shetty is a 73 year old male with history of lung cancer currently receiving immunotherapy with Opdivo, bladder cancer, COPD, HTN, and chronic pain syndrome on methadone who presented with dyspsnea on exertion for less than 1 day. Pt. states he woke up this morning around 5 am. He developed significant shortness of breath after ambulating to the bathroom. He had to rest for a few minutes before he started to walk again. Shortness of breath with exertion persisted throughout the morning with ambulation. Pt. used his albuterol inhaler with minimal relief. Has chest pressure, located in the sternal area. Denies radiation of pain into jaw or arm, nausea or vomiting. Complains of a non-productive cough, onset was less than 12 hours ago. Denies nasal congestion, sinus pressure, headaches, pharyngitis, LE edema. Denies abdominal pain, N/V, constipation or diarrhea, dysuria or hematuria. Pt. was admitted from 06/16-06/20 for nausea/vomiting and flulike symptoms. Influenza by PCR was negative; symptoms were thought to be related to a viral gastroenteritis vs. methadone withdrawal as pt. was not taking his Methadone at home correctly. CXR on day of admission showed severe pulmonary emphysema but no evidence of acute consolidation. He received Solu-medrol 125 mg IV and Levaquin 750 mg IV in the ED. Principal Diagnosis COPD with exacerbation Discharge Exam Constitutional well developed and well nourished; no acute distress ENMT Ears: + external ear abnormality (right; normal left ear) Mouth: no oropharynx abnormality and no oral mucosal abnormality Respiratory normal respiratory effort; no labored breathing Auscultation: + wheezes (minimal b/l ); no rales Cardiovascular Rate/Rhythm: regular rhythm and + tachycardic Heart Sounds: normal S1 and normal S2; no murmur Vessels: posterior tibial pulses present and dorsalis pedis pulses present; no JVD Extremities: no edema Gastrointestinal (Abdomen) normal bowel sounds, soft, nontender, no hepatosplenomegaly Psychiatric A+Ox3, euthymic affect Discharge Data Allergies Allergy/AdvReac Type Severity Reaction Status Date / Time Bactrim Allergy Severe TONGUE Verified 12/02/17 08:11 SWELLS/FONG mupirocin Allergy Severe ANAPHYLAXIS Verified 06/16/18 06:02 sulfamethoxazole Allergy Severe TONGUE Verified 06/28/18 14:28 SWELLS/FONG trimethoprim Allergy Severe TONGUE Verified 06/28/18 14:28 SWELLS/FONG Iodinated Contrast- Oral and Allergy Intermediate HIVES/ITCHI Verified 06/28/18 14:28 IV Dye NG lisinopril Allergy Intermediate Tongue Verified 06/28/18 14:28 Swelling mustard Allergy Intermediate Hives, Verified 06/28/18 14:28 SOB, Itchy aspirin Allergy Mild ITCHY Verified 06/28/18 14:28 adhesive AdvReac Intermediate Tape - Rash Verified 06/28/18 14:28 Consultations PT OT Ordered Studies 1. CTA chest - IMPRESSION: 1. Streak and motion compromised examination. 2. There is no evidence of central pulmonary embolus in the main or lobar pulmonary arteries. Evaluation of the peripheral branches is significantly degraded by streak and motion artifact, as well as suboptimal contrast opacification. 3. Advanced emphysema. 4. There is no airspace consolidation or pleural effusion. 5. Pulmonary lesions are again seen in the lingula and right lower lobe. The right lower lobe lesion has modestly decreased in size from 06/16/2018. 6. A severe compression deformity of T7 is unchanged and may be pathologic. No retropulsed fragments are identified. 2. CT head - no evidence of intra-cranial mass or acute findings. 3. CT cervical spine - no evidence of metastatic disease; DJD only. Hospital Course (1) COPD exacerbation: Patient was treated in the customary fashion [facility] IV steroids, antibiotics, nebs, mucolytics, NC o2, and pulmonary toilet. He made gradual improvement over a fairly lengthy hospitalization. He completed his entire antibiotic course while hospitalized. A 2-step oxygen test did NOT reveal a need for ambulatory oxygen. He will complete a prednisone taper after discharge. Fortunately his course was not complicated by pneumonia or CHF. He was advised to continue being smoke-free/tobacco-free. (2) Acute respiratory failure with hypoxia and hypercapnia: 2nd to COPD exacerbation - resolved with the treatment measures noted above. (3) Stage 4 lung cancer: CT chest showed pulmonary lesions in the lingula and RLL; RLL lesion was decreased in comparison to May 2018 imaging. Also has severe compression deformity of T7. It is possible this is a metastatic/pathologic fracture. Takes opdivo chemotherapy for the cancer. Managed by Dr. Anand. Continue Methadone 10 mg QID for chronic pain syndrome. (4) Bladder cancer: s/p multiple TURBT procedures in the past. NO urinary symptoms at this time. (5) Essential (primary) hypertension: Controlled during the stay. (6) Hyperlipidemia: Continue statin. (7) BPH (benign prostatic hyperplasia): Finasteride 5 mg qAM and Terazosin. (8) Tobacco abuse: Counseled to quit. (9) Severe protein-calorie malnutrition: 50+ pound weight loss due to stage 4 lung cancer. Patient did eat well during the stay likely due to steroids. (10) Chronic pain syndrome: He will remain on methadone post-discharge. He takes this four times a day. Total Time Total Time Spent Total Time Spent (In Minutes): 40 Discharge Plan Discharge Items Patient Disposition: Home - Home Health Services Reason For Visit: ACUTE COPD EXACERBATION Discharge Diagnosis: COPD exacerbation - improving Discharge Goals: Diagnostic testing and Therapeutic intervention Activity: As commented below Activity Comment: please take it easy the next few days then gradually increase as tolerated Non-emergency contact: Primary Care Provider and Oncologist Call non-emergency contact if: you have any medication questions, your symptoms worsen, your pain is not controlled, your pain is worsening, your pain is unusual for you, your pain is concerning for you and your temperature is above 100.5 Diet: Heart Healthy Addtl Provider Instructions: From Sherif Lawler - hospitalist - You were treated for a COPD exacerbation with antibiotics, steroids, and nebulizer treatments. You gradually improved and your oxygen was weaned off. You did not have evidence of influenza (the flu) or pneumonia. At this time we recommend the following - 1. prednisone taper - start 07/07/18. Take with food for 10 days. 2. tessalon perles - take 100mg capsule every 8 hours as needed for cough. 3. can take hhlz-zlz-dtiwxzo mucinex up to 1200mg twice a day as needed for cough. 4. can take fnyv-avj-uwyinxp zyrtec 5-10 mg once daily for nasal congestion. 5. can take phde-jdm-[id number] flonase 2 sprays each nostril once a day for nasal congestion. 6. can use the nicoderm patch and change once a day to help with smoking cessation. If you go back to using cigarettes please stop the patch right away. 7. continue to use your inhalers and nebs as previous. 8. stop smoking if possible. 9. follow-up - * see your family doctor within 1 week * see Dr. Anand within 1 week * see urology within 1-2 weeks 10. Return to [facility] if - * you have fevers over 100.5 degrees * you have worsening shortness of breath, chest pain or cough * your pain is uncontrolled * any other concerns Prescriptions: New nicotine [Nicoderm CQ] 14 mg/24 hr Patch 24 Hour 14 mg Transdermal QAM Qty: 30 RF: 0 benzonatate [Tessalon Perles] 100 mg Capsule 100 mg PO TID PRN (Reason: cough) Qty: 30 RF: 0 fluticasone 50 mcg/actuation Peerless,Suspension 2 spry NA DAILY Qty: 1 RF: 0 guaifenesin [Mucinex] 600 mg Tablet Extended Release 12hr 1,200 mg PO Q12 Qty: 30 RF: 0 prednisone 10 mg tablet 10 mg PO DIRECTED Qty: 25 RF: 0 Continue atorvastatin 80 mg Tablet 80 mg PO PM RF: 0 ascorbic acid (vitamin C) [Vitamin C] 1,000 mg Tablet 1 g PO QAM RF: 0 magnesium oxide 420 mg Tablet 420 mg PO BID RF: 0 cyanocobalamin (vitamin B-12) [Vitamin B-12] 100 mcg Tablet 100 mcg PO QAM RF: 0 methadone 10 mg Tablet 10 mg PO QID RF: 0 terazosin 2 mg Capsule 2 mg PO QPM RF: 0 docusate sodium 100 mg Capsule 100 mg PO BID RF: 0 pyridoxine (vitamin B6) [Vitamin B-6] 100 mg Tablet 100 mg PO QAM RF: 0 albuterol sulfate 90 mcg/actuation Hfa Aerosol Inhaler 2 puff INHALATION Q4H PRN (Reason: Shortness Of Breath) RF: 0 finasteride 5 mg Tablet 5 mg PO QAM RF: 0 tiotropium bromide [Spiriva with HandiHaler] 18 mcg Capsule, W/Inhalation Device 1 cap INHALATION QAM RF: 0 budesonide-formoterol [Symbicort] 160-4.5 mcg/actuation Hfa Aerosol Inhaler 2 puff INHALATION BID RF: 0 Nebulizer Treatments 1 dose Inhalation QID RF: 0 potassium chloride 20 mEq Tablet Extended Release 20 meq PO DAILY RF: 0 amlodipine [Norvasc] 5 mg Tablet 5 mg PO HS Qty: 30 RF: 0 sennosides 8.6 mg Tablet 2 tabs PO BID PRN (Reason: Constipation) Qty: 0 RF: 0 cetirizine 10 mg Tablet 5 mg PO QAM Qty: 0 RF: 0 Discontinued fludrocortisone 0.1 mg Tablet 0.1 mg PO QAM RF: 0 oseltamivir [Tamiflu] 75 mg Capsule 75 mg PO BID Qty: 2 RF: 0 Stand-Alone Forms: [facility] Discharge Orders: Discharge Order (Routine); Ordered 07/06/18 Ordered By: Sherif Lawler Admission Data Admit Date/Time: 06/28/18 17:26 Attending Provider: Sherif Lawler Admit Provider: Sherif Lawler Primary Care Provider: PCP,NO Other Providers: Kandice Puri Service: Telemetry Other Interventions: Discharge Summary Assessment (RN) Last Done: 07/06/18 13:50 Studies:: CAT scan of the brain - no evidence of cancer in the brain. CAT scan of the cervical spine (neck) - no evidence of cancer in the bones of the neck. DC Date/Time DO NOT enter until pt leaves facility: 07/06/18 14:35
== END 2018-07-06 14:35 | disposition home health service (06) | DRG 190 ==
LOC: ED 12:10 → SUATTDRO 17:26 → 2N 17:26
DX: C67.9 Malignant neoplasm of bladder, unspecified; I25.10 Atherosclerotic heart disease of native coronary artery without angina pectoris; E87.8 Other disorders of electrolyte and fluid balance, not elsewhere classified; E43 Unspecified severe protein-calorie malnutrition; Z88.6 Allergy status to analgesic agent; C34.90 Malignant neoplasm of unspecified part of unspecified bronchus or lung; Z88.2 Allergy status to sulfonamides; J44.1 Chronic obstructive pulmonary disease with (acute) exacerbation

== ENCOUNTER 2018-12-07 11:40 | Inpatient (IN) ==
[2018-12-07] MEDS ORDERED: ALBUT/IPRATROP 3MG/0.5MG NEB 3 ML VIAL NEB STA (12:18)
[2018-12-07 12:47] LABS: Basophils # (auto) 0.02 K/uL (0-0.2); Basophils % (auto) 0.2 %; Hematocrit (blood only) 36.3 % (42-52); Hemoglobin 12.2 g/dL (14.0-18.0); Immature Granulocytes # (auto) 0.06 K/uL (0.00-0.02); Immature Granulocytes % (auto) 0.6 %; Lymphocytes # (auto) 1.14 K/uL (1.2-3.4); Lymphocytes % (auto) 11.4 %; Mean Corpuscular Hgb Conc 33.6 g/dL (32-36); Mean Corpuscular Volume 89.6 fL (80-100); Mean Platelet Volume 9.8 fL (7.4-10.4); Monocytes # (auto) 1.28 K/uL (0.11-0.59); Monocytes % (auto) 12.9 %; Neutrophils # (auto) 7.36 K/uL (1.4-6.5); Neutrophils % (auto) 73.9 %; Platelet Count 177 K/uL (130-400); RDW Coefficient of Variation 13.7 % (11.5-14.5); RDW Standard Deviation 44.9 fL (36.4-46.3); Red Blood Count 4.05 M/uL (4.7-6.1); White Blood Count 9.96 K/uL (4.8-10.8)
--- NOTE | 2018-12-07 12:57 | XRay Report ---
XR chest 1V portable HISTORY: 73 years-old Male weakness acute weakness. History of bladder cancer. COMPARISON: Chest radiograph 07/05/2018, PET CT 09/20/2018. TECHNIQUE: Portable AP view of the chest FINDINGS: Cardiomediastinal and hilar silhouettes appear unchanged. No pneumothorax. Chronic blunting of the co stophrenic angles. Calcified granuloma of the right midlung redemonstrated. Emphysema with chronic in terstitial coarsening. Ill-defined lingular opacity redemonstrated. Subsegmental left basilar opaciti es. Chronic right-sided rib fractures. Degenerative changes of the shoulders and spine. IMPRESSION: 1. Subsegmental left basilar opacities suggest atelectasis/scarring. 2. Previously described lingular nodule is better seen on comparison PET/CT. 3. Emphysema with chronic interstitial coarsening. The above report was generated using voice recognition software. It may contain grammatical, syntax o r spelling errors. Electronically signed by: Mauricio Andre M.D. 12/07/2018 12:56 PM
[2018-12-07 13:07] LABS: Alanine Aminotransferase 23 U/L (12-78); Albumin Level 2.8 gm/dl (3.4-5.0); Aspartate Aminotransferase 19 U/L (15-37); BUN Creatinine Ratio 20.3 (10-20); Blood Urea Nitrogen 19 mg/dl (7-18); Calcium 8.9 mg/dl (8.5-10.1); Carbon Dioxide 29 mmol/L (21-32); Chloride 102 mmol/L (98-107); Creatinine Clr Calc Pharmacy 83.7 ml/min; Est GFR (Non-African American) 80.2; Glucose 114 mg/dl (70-99); Magnesium 2.2 mg/dl (1.8-2.4); Potassium 4.1 mmol/L (3.5-5.1); Sodium 138 mmol/L (136-145)
[2018-12-07 13:17] LABS: Bilirubin,Total 0.5 mg/dl (0.2-1); Troponin I < 0.015 ng/ml (0-0.045)
[2018-12-07 13:18] LABS: Albumin Globulin Ratio 0.7 (0.9-2); Alkaline Phosphatase 82 U/L (45-117); Globulin 3.9 gm/dl (2.5-4.0); Total Protein 6.7 gm/dl (6.4-8.2)
--- NOTE | 2018-12-07 13:29 | Ultrasound Report ---
US venous doppler LE LT CLINICAL HISTORY: increased swelling PAIN. EDEMA. COMPARISON STUDY: No previous studies for comparison. FINDINGS: Real-time and color flow Doppler imaging were performed. Flow was seen within the femoral, popliteal and calf veins with no intraluminal thrombus demonstrated. The saphenous vein is patent. IMPRESSION: No evidence of deep venous thrombosis. Small popliteal cysts. The above report was generated using voice recognition software. It may contain grammatical, syntax or spelling errors. Electronically signed by: Amaury Sanchez M.D. 12/07/2018 1:28 PM
[2018-12-07 14:23] LABS: Appearance Urine Clear (Clear); Bacteria Urine Automated Negative (Negative); Bilirubin Urine Negative (Negative); Blood Urine Trace (Negative); Color Urine Yellow; Epithelial Cell Urine Auto >30 /lpf (0-5); Glucose Urine UA Negative (Negative); Ketones Urine Negative (Negative); Leukocyte Esterase Urine 3+ (Negative); Nitrite Urine Negative (Negative); Protein Urine Trace (Negative); RBC Urine Automated 0-4 /hpf (0-4); Specific Gravity Urine 1.014 (1.000-1.030); Urobilinogen Urine Negative (Negative); WBC Urine Automated >30 /hpf (0-5); pH Urine 6.5 (4.5-7.5)
[2018-12-07] MEDS ORDERED: cefTRIAXone SODIUM 2,000 MG/70 ML BAG IV STA (15:04)
--- NOTE | 2018-12-07 15:19 | Emergency Department Note ---
Entered by Ada Jaffe acting as a scribe for History of Present Illness General Chief complaint: Knee Injury/Pain Time Seen by Provider: 12/07/18 12:08 Source: patient History of Present Illness Onset (ago): hour(s) (this morning) Location: chest and lower extremity (left leg) Pain Consistency: + constant Maximum Pain Intensity: 4 Quality: + other (shortness of breath) Associated symptoms: + other (Two Bakers cyst on left leg) The patient is a 73 year old male who presents to the Emergency Room with complaints of breathing issues and constant left leg pain that started this morning. The patient was advised to come to the ED following a phone call with his primary care provider. The patient states that he can not catch his breath after exertion. The patient denies fever. The patient reports using 2 L of oxygen at home at rest and 4 L of oxygen during physical activities. The patient also reports two Bakers cyst on back of left knee. The patient notes that his left leg has been swollen for a few days which causes pain and difficulty walking. The patient denies ever having physical therapy. The patient states that he used to have a port for cancer treatment but now infusions are given intravenously. The patient reports history of blood clots, stroke, bladder cancer, lung cancer, and COPD on chronic oxygen. Also, the patient notes his next chemo treatment is tomorrow. Home Medications Home Medications Medication Instructions Recorded Confirmed Type Nebulizer Treatments 1 dose INHALATION QID 03/30/18 12/07/18 History Spiriva with HandiHaler 1 cap INHALATION QAM 03/30/18 12/07/18 History Symbicort 2 puff INHALATION BID 03/30/18 12/07/18 History albuterol sulfate 2 puff INHALATION Q4H PRN 03/30/18 12/07/18 History ascorbic acid (vitamin C) [Vitamin 1 g PO QAM 03/30/18 12/07/18 History C] atorvastatin 80 mg PO PM 03/30/18 12/07/18 History cyanocobalamin (vitamin B-12) 100 mcg PO QAM 03/30/18 12/07/18 History [Vitamin B-12] docusate sodium 100 mg PO BID 03/30/18 12/07/18 History finasteride 5 mg PO QAM 03/30/18 12/07/18 History methadone 10 mg PO QID 03/30/18 12/07/18 History pyridoxine (vitamin B6) [Vitamin 100 mg PO QAM 03/30/18 12/07/18 History B-6] terazosin 2 mg PO QPM 03/30/18 12/07/18 History sennosides 2 tabs PO BID PRN #0 tab 06/20/18 12/07/18 Rx cholecalciferol (vitamin D3) 400 400 unit PO DAILY cap 12/01/18 12/07/18 History unit capsule magnesium oxide 400 mg PO BID 12/03/18 12/07/18 History amlodipine [Norvasc] 5 mg PO HS 12/07/18 12/07/18 History cetirizine [Zyrtec] 5 mg PO QAM 12/07/18 12/07/18 History sennosides 17.2 mg PO BID PRN 12/07/18 12/07/18 History Allergies Allergy/AdvReac Type Severity Reaction Status Date / Time Bactrim Allergy Severe TONGUE Verified 12/02/17 08:11 SWELLS/FONG mupirocin Allergy Severe ANAPHYLAXIS Verified 12/07/18 14:12 sulfamethoxazole Allergy Severe TONGUE Verified 12/07/18 14:12 SWELLS/FONG trimethoprim Allergy Severe TONGUE Verified 12/07/18 14:12 SWELLS/FONG Iodinated Contrast- Oral and Allergy Intermediate HIVES/ITCHI Verified 12/07/18 14:12 IV Dye NG lisinopril Allergy Intermediate Tongue Verified 12/07/18 14:12 Swelling mustard Allergy Intermediate Hives, Verified 12/07/18 14:12 SOB, Itchy aspirin Allergy Mild ITCHY Verified 12/07/18 14:12 adhesive AdvReac Intermediate Tape - Rash Verified 12/07/18 14:12 Past Med/Surg History Medical History Chronic respiratory failure (Chronic) COPD (chronic obstructive pulmonary disease) (Chronic) Opioid dependence (Chronic) Acute leg pain (Acute) Left leg swelling (Acute) Bladder cancer metastasized to pelvic region (Acute) BPH (benign prostatic hyperplasia) (Chronic) COPD (chronic obstructive pulmonary disease) (Chronic) Elevated PSA (Chronic) H/O malignant neoplasm of skin (Chronic) Hyperlipidemia (Chronic) Non-small cell lung cancer (Chronic) CURRENTLY BEING TREATED W/ CHEMOTHERAPY Stroke (Chronic) 2009 - NO PERIPHERAL VISION RT SIDE - NO NEUROLOGIST Urothelial carcinoma (Chronic) H/O hematuria (Resolved) Hypertension (Resolved) Bladder cancer CURRENTLY BEING TREATED W/ CHEMOTHERAPY Chronic back pain Constipation Inguinal hernia BL Osteoarthritis Umbilical hernia Surgical History H/O prostate biopsy (Acute) H/O Moh's micrographic surgery for skin cancer (Resolved) H/O hand surgery (Resolved) H/O prostatectomy History of bronchoscopy W/ BIOPSY History of colonoscopy History of surgery TRANSURETHRAL RESECTION OF BLADDER TUMOR X 3 History of surgery PLACEMENT OF MEDIPORT W/ REMOVAL History of ureter stent W/ REMOVAL Family History Father , 69yo [place], DM, arthritis, HTN Diabetes Cardiac disorder Hypertension Mother , age 84 from stroke Cardiac disorder Hypertension Brother Diabetes Cardiac disorder Hypertension Cancer, face Sister History of kidney cancer Hypertension Unknown Lung cancer Leukemia Basal cell carcinoma Social History Preferred Language: Setswana Communication Ability: Effective Visual Impairment: No Limitations Hearing Ability: Deaf Beliefs That Will Affect Care: None marital status: marital status details: 1 son and 3 daughters Current Living Situation: Alone Current Living Situation Comment: lives in [place] current occupational status: retired current occupation: [employer] Feels Safe at Home: Yes Smoking Status: Never smoker Tobacco Type: cigarettes Cigarettes Per Day: 1 ppd x 60 years; quit 1 month ago Second Hand Exposure: No Hx Alcohol Use: No Hx Substance Use: No caffeine: Yes (3 cups/day) during the past year weight has: decreased > 10 lbs Review of Systems See HPI for pertinent positives & negatives. and A total of 10 systems reviewed and were otherwise negative Physical Exam Vital Signs Vital Signs - 24 hr 12/07/18 11:45 12/07/18 11:49 12/07/18 11:50 Temperature Temperature Source Sepsis Recent Fever Within 48 Hours Sepsis New/Unexplained Change in Mental Status Sepsis Action Taken by Nursing Pulse Rate 80 81 79 Pulse Rate [Apical] Pulse Rate from SpO2 Sensor 80 80 79 Respiratory Rate 15 13 16 Respiratory Effort / Characteristics Blood Pressure 148/68 H Blood Pressure [Right Arm] Blood Pressure Mean 94 Blood Pressure Mean [Right Arm] Blood Pressure Position Blood Pressure Position [Right Arm] Pulse Oximetry 95 94 95 Oxygen Delivery Method Oxygen Flow Rate 12/07/18 11:59 12/07/18 12:00 12/07/18 12:10 Temperature 37.2 C Temperature Source Oral Sepsis Recent Fever Within 48 Hours No Sepsis New/Unexplained Change in Mental Status No Sepsis Action Taken by Nursing No Action Required Pulse Rate 93 H 84 Pulse Rate [Apical] Pulse Rate from SpO2 Sensor 85 77 Respiratory Rate 20 18 18 Respiratory Effort / Characteristics Non-Labored Spontaneous Blood Pressure 148/68 H 136/68 Blood Pressure [Right Arm] Blood Pressure Mean 94 90 Blood Pressure Mean [Right Arm] Blood Pressure Position Lying Blood Pressure Position [Right Arm] Pulse Oximetry 93 92 92 Oxygen Delivery Method Nasal Cannula Oxygen Flow Rate 2 12/07/18 12:20 12/07/18 12:22 12/07/18 12:29 Temperature Temperature Source Sepsis Recent Fever Within 48 Hours Sepsis New/Unexplained Change in Mental Status Sepsis Action Taken by Nursing Pulse Rate Pulse Rate [Apical] 77 Pulse Rate from SpO2 Sensor 81 Respiratory Rate 16 Respiratory Effort / Characteristics Non-Labored Spontaneous Blood Pressure Blood Pressure [Right Arm] Blood Pressure Mean Blood Pressure Mean [Right Arm] Blood Pressure Position Blood Pressure Position [Right Arm] Pulse Oximetry 95 94 95 Oxygen Delivery Method Nasal Cannula Nasal Cannula Oxygen Flow Rate 2 2 12/07/18 12:30 12/07/18 12:40 12/07/18 12:47 Temperature Temperature Source Sepsis Recent Fever Within 48 Hours Sepsis New/Unexplained Change in Mental Status Sepsis Action Taken by Nursing Pulse Rate 74 81 80 Pulse Rate [Apical] Pulse Rate from SpO2 Sensor 82 80 Respiratory Rate 14 17 17 Respiratory Effort / Characteristics Blood Pressure 136/68 Blood Pressure [Right Arm] Blood Pressure Mean 90 Blood Pressure Mean [Right Arm] Blood Pressure Position Blood Pressure Position [Right Arm] Pulse Oximetry 93 95 Oxygen Delivery Method Oxygen Flow Rate 12/07/18 13:40 12/07/18 13:50 12/07/18 13:51 Temperature Temperature Source Sepsis Recent Fever Within 48 Hours Sepsis New/Unexplained Change in Mental Status Sepsis Action Taken by Nursing Pulse Rate 75 75 75 Pulse Rate [Apical] Pulse Rate from SpO2 Sensor 75 75 Respiratory Rate 17 20 15 Respiratory Effort / Characteristics Blood Pressure 125/70 125/70 Blood Pressure [Right Arm] Blood Pressure Mean 88 88 Blood Pressure Mean [Right Arm] Blood Pressure Position Blood Pressure Position [Right Arm] Pulse Oximetry 94 95 95 Oxygen Delivery Method Oxygen Flow Rate 12/07/18 14:00 12/07/18 14:10 12/07/18 14:20 Temperature Temperature Source Sepsis Recent Fever Within 48 Hours Sepsis New/Unexplained Change in Mental Status Sepsis Action Taken by Nursing Pulse Rate 73 73 85 Pulse Rate [Apical] Pulse Rate from SpO2 Sensor 73 74 84 Respiratory Rate 15 19 13 Respiratory Effort / Characteristics Blood Pressure Blood Pressure [Right Arm] Blood Pressure Mean Blood Pressure Mean [Right Arm] Blood Pressure Position Blood Pressure Position [Right Arm] Pulse Oximetry 95 96 95 Oxygen Delivery Method Oxygen Flow Rate 12/07/18 14:30 12/07/18 15:21 12/07/18 16:14 Temperature Temperature Source Sepsis Recent Fever Within 48 Hours Sepsis New/Unexplained Change in Mental Status Sepsis Action Taken by Nursing Pulse Rate 73 78 Pulse Rate [Apical] 69 Pulse Rate from SpO2 Sensor 74 Respiratory Rate 16 20 14 Respiratory Effort / Characteristics Non-Labored Spontaneous Blood Pressure 140/69 Blood Pressure [Right Arm] 140/69 Blood Pressure Mean 92 Blood Pressure Mean [Right Arm] 92 Blood Pressure Position Blood Pressure Position [Right Arm] Lying Pulse Oximetry 96 96 95 Oxygen Delivery Method Nasal Cannula Nasal Cannula Oxygen Flow Rate 2 12/07/18 17:10 Temperature Temperature Source Sepsis Recent Fever Within 48 Hours Sepsis New/Unexplained Change in Mental Status Sepsis Action Taken by Nursing Pulse Rate Pulse Rate [Apical] 72 Pulse Rate from SpO2 Sensor Respiratory Rate 20 Respiratory Effort / Characteristics Non-Labored Spontaneous Blood Pressure Blood Pressure [Right Arm] 124/66 Blood Pressure Mean Blood Pressure Mean [Right Arm] 85 Blood Pressure Position Blood Pressure Position [Right Arm] Lying Pulse Oximetry 97 Oxygen Delivery Method Nasal Cannula Oxygen Flow Rate 2 GENERAL: Patient is in no acute distress. HEENT: No acute trauma, normocephalic atraumatic, mucous membranes moist, no nasal congestion, no scleral icterus. NECK: No stridor, no adenopathy, no meningismus, trachea is midline. LUNGS: Diminished breath sounds, equal breath sound, no respiratory distress, scattered wheezing. HEART: Without murmurs gallops or rubs, regular rate and rhythm. ABDOMEN: Soft, nontender, bowel sounds positive, no hernias, no peritonitis. EXTREMITIES: Moderate left lower extremity edema. Full range of motion of all the joints without pain or difficulty, no signs for acute trauma. NEUROLOGIC: Oriented x 3, no acute motor or sensory deficits, no focal weakness. SKIN: No rash, no jaundice, no diaphoresis. Course 1212: Past medical records reviewed. The patient was evaluated in room C5. A complete history and physical exam was performed. 1550: Upon further evaluation of the patient, I will try to transfer the patient to [facility] for further evaluation. 1618: I spoke with the [facility]. [facility] has informed me that they can not do anything for the patient today because it is after hours. They can start the rehab process tomorrow. 1628: I updated the patient's case with the human services case manager. 1652: I discussed the case with Dr. Fall-[facility] Hospitalist. Dr. Fall will further evaluate the patient. Administered Medications Methadone HCl (Dolophine) 10 mg PO 0500,1100,1700,2300 BELKIS Stop: 12/21/18 18:12 Last Admin: 12/07/18 19:14 Dose: 10 mg Documented by: [id number] Discontinued Medications Albuterol (Duoneb) 3 ml NEB NOW STA Stop: 12/07/18 12:19 Last Admin: 12/07/18 12:29 Dose: 3 ml Documented by: [id number] Ceftriaxone Sodium (Rocephin) 2,000 mg in 70 mls @ 140 mls/hr IV NOW STA Stop: 12/07/18 15:33 Last Infusion: 12/07/18 15:52 Dose: 0 mls/hr Documented by: [id number] Admin: 12/07/18 15:20 Dose: 140 mls/hr Documented by: [id number] Medical Decision Making Differential Diagnosis Differential diagnoses include exacerbation of COPD, congestive heart failure, anemia, myocardial infarction, electrolyte imbalance, deep vein thrombosis, fluid overload, Bakers cyst. Medical Records Attestation: I reviewed the patient's medical records. Home Medications Current Medication List: was personally reviewed by me Laboratory Data Attestation: I reviewed the patient's lab results. Result diagrams: 12/07/18 12:37 12/07/18 12:37 Lab Results 12/07/18 12/07/18 12/07/18 Range/Units 12:37 12:37 13:50 WBC 9.96 (4.8-10.8) K/uL RBC 4.05 L (4.7-6.1) M/uL Hgb 12.2 L (14.0-18.0) g/dL Hct 36.3 L (42-52) % MCV 89.6 (80-100) fL MCH 30.1 (25-34) pg MCHC 33.6 (32-36) g/dL RDW Std Deviation 44.9 (36.4-46.3) fL RDW Coeff of James 13.7 (11.5-14.5) % Plt Count 177 (130-400) K/uL MPV 9.8 (7.4-10.4) fL Immature Gran % (Auto) 0.6 % Neut % (Auto) 73.9 % Lymph % (Auto) 11.4 % Barren % (Auto) 12.9 % Eos % (Auto) 1.0 % Baso % (Auto) 0.2 % Immature Gran # (Auto) 0.06 H (0.00-0.02) K/uL Neut # (Auto) 7.36 H (1.4-6.5) K/uL Lymph # (Auto) 1.14 L (1.2-3.4) K/uL Barren # (Auto) 1.28 H (0.11-0.59) K/uL Eos # (Auto) 0.10 (0-0.5) K/uL Baso # (Auto) 0.02 (0-0.2) K/uL Sodium 138 (136-145) mmol/L Potassium 4.1 (3.5-5.1) mmol/L Chloride 102 (98-107) mmol/L Carbon Dioxide 29 (21-32) mmol/L Anion Gap 7.0 (3-11) BUN 19 H (7-18) mg/dl Creatinine 0.95 (0.6-1.4) mg/dl Est Cr Clr Drug Dosing 83.7 ml/min Est GFR ( Amer) 93.0 Est GFR (Non-Af Amer) 80.2 BUN/Creatinine Ratio 20.3 H (10-20) Glucose 114 H (70-99) mg/dl Calcium 8.9 (8.5-10.1) mg/dl Magnesium 2.2 (1.8-2.4) mg/dl Total Bilirubin 0.5 (0.2-1) mg/dl AST 19 (15-37) U/L ALT 23 (12-78) U/L Alkaline Phosphatase 82 (45-117) U/L Troponin I < 0.015 (0-0.045) ng/ml Total Protein 6.7 (6.4-8.2) gm/dl Albumin 2.8 L (3.4-5.0) gm/dl Globulin 3.9 (2.5-4.0) gm/dl Albumin/Globulin Ratio 0.7 L (0.9-2) TSH 0.441 (0.300-4.500) uIu/ml Urine Color Yellow Urine Appearance Clear (Clear) Urine pH 6.5 (4.5-7.5) Ur Specific [place] 1.014 (1.000-1.030) Urine Protein Trace H (Negative) Urine Glucose (UA) Negative (Negative) Urine Ketones Negative (Negative) Urine Blood Trace H (Negative) Urine Nitrite Negative (Negative) Urine Bilirubin Negative (Negative) Urine Urobilinogen Negative (Negative) Ur Leukocyte Esterase 3+ H (Negative) Urine WBC (Auto) >30 H (0-5) /hpf Urine RBC (Auto) 0-4 (0-4) /hpf U Hyaline Cast (Auto) 1-5 (0-5) /lpf U Epithel Cells (Auto) >30 H (0-5) /lpf Urine Bacteria (Auto) Negative (Negative) Ur Renal Epithelial Cell Not Reportable Imaging Data Radiologist's Impression: Radiology results as stated below per my review and the radiologist's interpretation: US venous doppler LE LT CLINICAL HISTORY: increased swelling PAIN. EDEMA. COMPARISON STUDY: No previous studies for comparison. FINDINGS: Real-time and color flow Doppler imaging were performed. Flow was seen within the femoral, popliteal and calf veins with no intraluminal thrombus demonstrated. The saphenous vein is patent. IMPRESSION: No evidence of deep venous thrombosis. Small popliteal cysts. The above report was generated using voice recognition software. It may contain grammatical, syntax or spelling errors. Electronically signed by: Amaury Sanchez M.D. 12/07/2018 1:28 PM XR chest 1V portable HISTORY: 73 years-old Male weakness acute weakness. History of bladder cancer. COMPARISON: Chest radiograph 07/05/2018, PET CT 09/20/2018. TECHNIQUE: Portable AP view of the chest FINDINGS: Cardiomediastinal and hilar silhouettes appear unchanged. No pneumothorax. Chronic blunting of the costophrenic angles. Calcified granuloma of the right midlung redemonstrated. Emphysema with chronic interstitial coarsening. Ill- defined lingular opacity redemonstrated. Subsegmental left basilar opacities. Chronic right-sided rib fractures. Degenerative changes of the shoulders and spine. IMPRESSION: 1. Subsegmental left basilar opacities suggest atelectasis/scarring. 2. Previously described lingular nodule is better seen on comparison PET/CT. 3. Emphysema with chronic interstitial coarsening. The above report was generated using voice recognition software. It may contain grammatical, syntax or spelling errors. Electronically signed by: Mauricio Andre M.D. 12/07/2018 12:56 PM ECG Data Attestation: I personally reviewed and interpreted this ECG as follows: Indication: SOB/dyspnea Rate (beats per minute): 75 Rhythm: normal sinus Findings: no PVC and no ST elevation Blood Pressure Blood Pressure Findings: Elevated blood pressure Blood Pressure Disposition: further management by hospitalist JENNIFER Narrative There is no leukocytosis or worrisome anemia. No significant electrolyte abnormality or kidney failure. No worrisome liver enzyme elevation. EKG shows a sinus rhythm, no acute ischemia. Cardiac enzyme testing x1 is not consistent with acute cardiac injury. The patient appeared to be in a euthyroid state. Urinalysis shows possible infection with over 30 white blood cells per high- power field. Urine culture is pending. Left leg ultrasound does not show DVT, a small popliteal cyst was seen. Chest film shows some atelectasis, no pneumonia or CHF. The patient received a DuoNeb as he was due for this type of treatment. He was given IV ceftriaxone as antibiotic coverage for the potential UTI. The patient is in no condition to be discharged home. He is not able to care for himself with his dyspnea and left leg pain and swelling. I did speak to the [facility], the patient will need to be hospitalized at our facility tonight as the center for rehab is closed for the day. The cause for the entire presentation is not clear. This is the patient's second visit though for his complaints and things are worsening. He has lung and bladder cancer. He does have COPD, he is on chronic O2 therapy. He is in need of a hospital stay and possibly even rehab. Further work-up may be warranted for the leg edema. I spoke to case management, the on-call hospitalist was consulted. The patient is aware of all his findings. Impression & Plan Weakness, Left leg swelling, Shortness of breath, Left leg pain Discharge Plan Visit Data *Final* Discharge Date/Time: 12/07/18 17:52 Chief Complaint: Knee Injury/Pain ED Provider: Reinaldo Tristan Discharge Problem: Weakness, Left leg swelling, Shortness of breath, Left leg pain Patient Disposition: Admitted As Inpatient Discharge Instructions Interventions: ED Discharge Assessment Last Done: 12/07/18 17:52 The vivianeibe's documentation has been prepared under my direction and personally reviewed by me in its entirety. I confirm that the note above accurately reflects all work, treatment, procedures, and medical decision making performed by me.
--- NOTE | 2018-12-07 17:11 | History & Physical Report ---
Date of Service December 07, 2018 Assessment & Plan (1) Acute leg pain: With swelling and erythema. Rule out cellulitis. Rule out lymphatic obstruction. History of bladder cancer. Venous Doppler negative for DVT. Obtain abdominal pelvic CT scan. Continue intravenous Rocephin Present on Admission?: Yes (2) Left leg swelling: See above. Continue intravenous Rocephin Present on Admission?: Yes (3) Bladder cancer metastasized to pelvic region: Obtain abdominal pelvic CT scan to rule out lymphadenopathy causing left lower extremity lymphedema Present on Admission?: Yes (4) Opioid dependence: Continue methadone therapy Present on Admission?: Yes (5) COPD (chronic obstructive pulmonary disease): Stable. Continue current inhaler treatment Present on Admission?: Yes (6) Chronic respiratory failure: Stable. Continue oxygen at 2 L/min Present on Admission?: Yes (7) DVT prophylaxis: Lovenox subcu Present on Admission?: Yes (8) UTI (urinary tract infection): Await urine culture results. Continue intravenous Rocephin. Present on Admission?: Yes History of Present Illness Chief Complaint: Left leg swelling and tenderness with ambulatory dysfunction Primary Care Provider: NO PCP 73-year-old male with COPD and chronic respiratory failure on chronic home oxygen. For the past several days he has had worsening swelling and discomfort of the entire left lower extremity which is limiting his ambulatory capacity. He came to the ED today for evaluation. Venous Doppler is negative for DVT. He does have a history of bladder cancer and there may be some lymphadenopathy in the pelvic region causing obstruction and swelling of the left lower extremity. Venous Doppler is negative for DVT. There is some evidence of UTI also. He has been started on Rocephin in the ED. He is placed in observation status for further evaluation and treatment. He denies any fever. There is no current leukocytosis. Respiratory status is stable. He is chronic opioid dependent for chronic pain syndrome and takes methadone daily. Allergies Allergy/AdvReac Type Severity Reaction Status Date / Time Bactrim Allergy Severe TONGUE Verified 12/02/17 08:11 SWELLS/FONG mupirocin Allergy Severe ANAPHYLAXIS Verified 12/07/18 14:12 sulfamethoxazole Allergy Severe TONGUE Verified 12/07/18 14:12 SWELLS/FONG trimethoprim Allergy Severe TONGUE Verified 12/07/18 14:12 SWELLS/FONG Iodinated Contrast- Oral and Allergy Intermediate HIVES/ITCHI Verified 12/07/18 14:12 IV Dye NG lisinopril Allergy Intermediate Tongue Verified 12/07/18 14:12 Swelling mustard Allergy Intermediate Hives, Verified 12/07/18 14:12 SOB, Itchy aspirin Allergy Mild ITCHY Verified 12/07/18 14:12 adhesive AdvReac Intermediate Tape - Rash Verified 12/07/18 14:12 Home Medications Home Medications Medication Instructions Recorded Confirmed Type Nebulizer Treatments 1 dose INHALATION QID 03/30/18 12/07/18 History Spiriva with HandiHaler 1 cap INHALATION QAM 03/30/18 12/07/18 History Symbicort 2 puff INHALATION BID 03/30/18 12/07/18 History albuterol sulfate 2 puff INHALATION Q4H PRN 03/30/18 12/07/18 History ascorbic acid (vitamin C) [Vitamin 1 g PO QAM 03/30/18 12/07/18 History C] atorvastatin 80 mg PO PM 03/30/18 12/07/18 History cyanocobalamin (vitamin B-12) 100 mcg PO QAM 03/30/18 12/07/18 History [Vitamin B-12] docusate sodium 100 mg PO BID 03/30/18 12/07/18 History finasteride 5 mg PO QAM 03/30/18 12/07/18 History methadone 10 mg PO QID 03/30/18 12/07/18 History pyridoxine (vitamin B6) [Vitamin 100 mg PO QAM 03/30/18 12/07/18 History B-6] terazosin 2 mg PO QPM 03/30/18 12/07/18 History sennosides 2 tabs PO BID PRN #0 tab 06/20/18 12/07/18 Rx cholecalciferol (vitamin D3) 400 400 unit PO DAILY cap 12/01/18 12/07/18 History unit capsule magnesium oxide 400 mg PO BID 12/03/18 12/07/18 History amlodipine [Norvasc] 5 mg PO HS 12/07/18 12/07/18 History cetirizine [Zyrtec] 5 mg PO QAM 12/07/18 12/07/18 History sennosides 17.2 mg PO BID PRN 12/07/18 12/07/18 History Past Med/Surg History Medical History BPH (benign prostatic hyperplasia) (Chronic) COPD (chronic obstructive pulmonary disease) (Chronic) Elevated PSA (Chronic) H/O malignant neoplasm of skin (Chronic) Hyperlipidemia (Chronic) Non-small cell lung cancer (Chronic) CURRENTLY BEING TREATED W/ CHEMOTHERAPY Stroke (Chronic) 2009 - NO PERIPHERAL VISION RT SIDE - NO NEUROLOGIST Urothelial carcinoma (Chronic) H/O hematuria (Resolved) Hypertension (Resolved) Bladder cancer CURRENTLY BEING TREATED W/ CHEMOTHERAPY Chronic back pain Constipation Inguinal hernia BL Osteoarthritis Umbilical hernia Surgical History H/O prostate biopsy (Acute) H/O Moh's micrographic surgery for skin cancer (Resolved) H/O hand surgery (Resolved) H/O prostatectomy History of bronchoscopy W/ BIOPSY History of colonoscopy History of surgery TRANSURETHRAL RESECTION OF BLADDER TUMOR X 3 History of surgery PLACEMENT OF MEDIPORT W/ REMOVAL History of ureter stent W/ REMOVAL Family History Father , 69yo [place], DM, arthritis, HTN Diabetes Cardiac disorder Hypertension Mother , age 84 from stroke Cardiac disorder Hypertension Brother Diabetes Cardiac disorder Hypertension Cancer, face Sister History of kidney cancer Hypertension Unknown Lung cancer Leukemia Basal cell carcinoma Social History Preferred Language: [place] Communication Ability: Effective Visual Impairment: No Limitations Hearing Ability: Deaf Beliefs That Will Affect Care: None marital status: marital status details: 1 son and 3 daughters Current Living Situation: Alone Current Living Situation Comment: lives in [place] current occupational status: retired current occupation: [employer] Feels Safe at Home: Yes Smoking Status: Never smoker Tobacco Type: cigarettes Cigarettes Per Day: 1 ppd x 60 years; quit 1 month ago Second Hand Exposure: No Hx Alcohol Use: No Hx Substance Use: No caffeine: Yes (3 cups/day) during the past year weight has: decreased > 10 lbs Review of Systems Review of Systems: Constitutional-no fever or chills ENT-no blurred vision, no double vision, no epistaxis, no sore throat Respiratory-no cough, no wheezing, no shortness of breath Cardiac-no palpitations, no chest pain, no syncope GI-no nausea, vomiting, diarrhea, melena, hematochezia -no urinary retention, no urinary incontinence, no dysuria, no hematuria Musculoskeletal-worsening swelling and tenderness of the entire left leg for the past several days. Increased pain with weightbearing left leg Skin-no bruising, no rashes, no pruritus Neuro-no isolated weakness, no paresthesia, no weakness Psych-no depression, no anxiety Physical Exam Physical Exam: General-alert and oriented x3, no fevers, no chills. Morbidly obese male HEENT-head atraumatic and normocephalic, TMs intact bilaterally, pupils equal and reactive to light, extraocular muscles intact Neck-no lymphadenopathy or thyromegaly, trachea midline Chest-diminished breath sounds bilaterally. No audible rales wheezing or rho nchi Cardiac-regular rate and rhythm, normal S1 and S2, no JVD Abdomen-normal bowel sounds, nontender, no hepatosplenomegaly Extremities-chronic venous stasis changes bilateral lower extremities. He does have pitting edema and induration throughout the entire left leg from the groin down to the foot. There is some erythema on the medial and posterior aspect of the right leg and thigh. Limited range of motion. Neuro-cranial nerves II through XII intact, motor and sensory function within normal limits, strength symmetrical , no focal deficits Psych-normal affect, normal mood Results & Data Vital Signs (Past 12 Hours) Vital Signs Temp Pulse Pulse Resp BP BP Pulse Ox 12/07/18 16:14 69 14 140/69 95 12/07/18 15:21 78 20 140/69 96 12/07/18 14:30 73 16 96 12/07/18 14:20 85 13 95 12/07/18 14:10 73 19 96 12/07/18 14:00 73 15 95 12/07/18 13:51 75 15 125/70 95 12/07/18 13:50 75 20 95 12/07/18 13:40 75 17 125/70 94 12/07/18 12:47 80 17 136/68 95 12/07/18 12:40 81 17 93 12/07/18 12:30 74 14 12/07/18 12:29 77 16 95 12/07/18 12:22 94 12/07/18 12:20 95 12/07/18 12:10 18 136/68 92 12/07/18 12:00 84 18 92 12/07/18 11:59 37.2 C 93 H 20 148/68 H 93 12/07/18 11:50 79 16 95 12/07/18 11:49 81 13 94 12/07/18 11:45 80 15 148/68 H 95 Laboratory Results 12/07/18 12:37 12/07/18 12:37 PG Care Time/CCT Total # of Minutes Spent Total Time Spent with Patient: Total time spent is greater than 50% in coordination of care (as documented) at patient's floor/unit and/or counseling patient: (1) Acute leg pain Laterality: left Qualified Code(s): M79.605 - Pain in left leg
[2018-12-07] MEDS ORDERED: ACETAMINOPHEN 325 MG TAB PO PRN (18:13)
[2018-12-07] MEDS ORDERED: ALBUTEROL HFA 8 GM INHALER INH PRN (18:13)
[2018-12-07] MEDS ORDERED: SENNA 8.6 MG TAB PO PRN (18:13)
[2018-12-07] MEDS ORDERED: ALUMINUM/MAGNESIUM SUSP 30 ML UDC PO PRN (18:13)
[2018-12-07] MEDS ORDERED: ONDANSETRON INJ 2 MG/ML 2 ML VIAL IV PRN (18:13)
[2018-12-07] MEDS: METHADONE HCL 10 MG TAB PO SCH ×2 (19:14→23:16)
[2018-12-07 19:39] LABS: INR 1.1 (0.9-1.1); Prothrombin Time 11.3 Seconds (9.0-12.0)
--- NOTE | 2018-12-07 20:24 | Progress Note ---
Date of Service December 07, 2018 Subjective Notified by nursing that pt is allergic to contrast. He is to have CT a/p with con for lymph nodes. Pt gave verbal consent to nursing to proceed with imaging as written WITH added premedication to avoid allergic reaction. Spoke with Pharmacy and testing and regulating technician. Scan to be done at 10:00 am tomorrow December 08 Orders placed for: Three doses of 50 mg oral prednisone administered 13, 7, and 1 hour prior to contrast administration, plus 50 mg oral diphenhydramine administered 1 hour prior to contrast administration A Katherine VANG PGY 3 [facility] resident. Results & Data Vital Signs (Past 12 Hours) Vital Signs Temp Pulse Pulse Resp BP BP Pulse Ox 12/07/18 17:52 74 18 146/73 H 95 12/07/18 17:10 72 20 124/66 97 12/07/18 16:14 69 14 140/69 95 12/07/18 15:21 78 20 140/69 96 12/07/18 14:30 73 16 96 12/07/18 14:20 85 13 95 12/07/18 14:10 73 19 96 12/07/18 14:00 73 15 95 12/07/18 13:51 75 15 125/70 95 12/07/18 13:50 75 20 95 12/07/18 13:40 75 17 125/70 94 12/07/18 12:47 80 17 136/68 95 12/07/18 12:40 81 17 93 12/07/18 12:30 74 14 12/07/18 12:29 77 16 95 12/07/18 12:22 94 12/07/18 12:20 95 12/07/18 12:10 18 136/68 92 12/07/18 12:00 84 18 92 12/07/18 11:59 37.2 C 93 H 20 148/68 H 93 12/07/18 11:50 79 16 95 12/07/18 11:49 81 13 94 12/07/18 11:45 80 15 148/68 H 95 Resident Activity Tracking Resident Involvement: Resident Care Provided Care Provided: Adult Hospital Medicine
[2018-12-07] MEDS: predniSONE 50 MG TAB PO SCH (21:10)
[2018-12-07] MEDS: TERAZOSIN HCL 1 MG CAP PO SCH (21:11)
[2018-12-07] MEDS: DOCUSATE SODIUM 100 MG CAP PO SCH (21:11)
[2018-12-07] MEDS: MAGNESIUM OXIDE 400 MG TAB PO SCH (21:11)
[2018-12-07] MEDS: ATORVASTATIN 40 MG TAB PO SCH (21:11)
[2018-12-07] MEDS: AMLODIPINE BESYLATE 5 MG TAB PO SCH (21:12)
[2018-12-07] MEDS: BUDESONIDE/FORMOTEROL FUMARATE 160/4.5 60 PUFFS/INHALER INH SCH (21:12)
[2018-12-07] MEDS: ENOXAPARIN INJ 40 MG/0.4 ML SYR SQ SCH (21:13)
[2018-12-07] MEDS ORDERED: SODIUM CHLORIDE 0.65% NA SOLN 45 ML (OCEAN) PRN (21:25)
[2018-12-08] MEDS: predniSONE 50 MG TAB PO SCH ×2 (03:26→09:07)
[2018-12-08] MEDS: METHADONE HCL 10 MG TAB PO SCH ×3 (05:51→16:38)
[2018-12-08 07:22] LABS: Hematocrit (blood only) 37.9 % (42-52); Hemoglobin 12.7 g/dL (14.0-18.0); Immature Granulocytes # (auto) 0.05 K/uL (0.00-0.02); Immature Granulocytes % (auto) 0.6 %; Lymphocytes # (auto) 0.77 K/uL (1.2-3.4); Lymphocytes % (auto) 9.5 %; Mean Corpuscular Hgb Conc 33.5 g/dL (32-36); Mean Corpuscular Volume 91.3 fL (80-100); Mean Platelet Volume 9.8 fL (7.4-10.4); Monocytes # (auto) 0.16 K/uL (0.11-0.59); Neutrophils % (auto) 87.9 %; Platelet Count 202 K/uL (130-400); RDW Coefficient of Variation 13.5 % (11.5-14.5); RDW Standard Deviation 44.4 fL (36.4-46.3); Red Blood Count 4.15 M/uL (4.7-6.1); White Blood Count 8.08 K/uL (4.8-10.8)
[2018-12-08] MEDS: DOCUSATE SODIUM 100 MG CAP PO SCH ×2 (07:31→20:56)
[2018-12-08] MEDS: CYANOCOBALAMIN (VITAMIN B-12) 100 MCG TABLET PO SCH (07:31)
[2018-12-08] MEDS: FINASTERIDE 5 MG TAB PO SCH (07:31)
[2018-12-08] MEDS: CHOLECALCIFEROL (VITAMIN D) 400 UNITS TABLET PO SCH (07:32)
[2018-12-08] MEDS: ASCORBIC ACID 500 MG TAB PO SCH (07:32)
[2018-12-08] MEDS: PYRIDOXINE HCL 50 MG TAB PO SCH (07:32)
[2018-12-08] MEDS: CETIRIZINE HCL 10 MG TABLET PO SCH (07:32)
[2018-12-08] MEDS: MAGNESIUM OXIDE 400 MG TAB PO SCH ×2 (07:33→20:57)
[2018-12-08] MEDS: BUDESONIDE/FORMOTEROL FUMARATE 160/4.5 60 PUFFS/INHALER INH SCH ×2 (07:33→21:00)
[2018-12-08] MEDS: TIOTROPIUM BROMIDE 5 PUFF/90 MCG INH INH SCH (07:33)
[2018-12-08 07:54] LABS: BUN Creatinine Ratio 19.7 (10-20); Calcium 9.4 mg/dl (8.5-10.1); Creatinine Clr Calc Pharmacy 77.2 ml/min; Est GFR (African American) 83.3; Est GFR (Non-African American) 71.9; Potassium 4.3 mmol/L (3.5-5.1)
[2018-12-08] MEDS ORDERED: IOVERSOL 100ml IV PRN (10:51)
--- NOTE | 2018-12-08 11:14 | CT Scan Report ---
CT SCAN OF THE ABDOMEN AND PELVIS WITH IV CONTRAST CLINICAL HISTORY: Lower extremity edema. History of bladder cancer. COMPARISON STUDY: Abdominal CT dated 06/16/2018. PET/CT dated 09/20/2018. TECHNIQUE: Following the IV administration of 93 cc of Optiray 320, CT scan of the abdomen and pelvi s is performed from the lung bases to the proximal femora. Images are reviewed in the axial, sagittal , and coronal planes. IV contrast was administered without complication. Oral contrast was utilized. A dose lowering technique was utilized adhering to the principles of ALARA. The examination is degrad ed by large body habitus, and by streak artifact from the body wall abutting the CT gantry. There is also streak artifact from the right arm which could not be elevated above the abdomen. CT DOSE: 1338.49 mGy.cm FINDINGS: Lung bases: The heart is mildly enlarged and without pericardial effusion. Advanced emphysematous and bullous change is noted at the lung bases. No airspace consolidation is seen typical for pneumonia a nd there is no pleural effusion. A fat-containing Bochdalek hernia is noted at the right lung base. A linear pleural-based 3.3 cm calcification containing lesion at the medial right lung base is similar in appearance to the 09/20/2018 PET examination as seen on image #13. A small portion of the lingular lesion is partially imaged at the left lung base image #1. No new lesion is seen at the lung bases. Liver: Evaluation of the liver is degraded by streak artifact. The contrast-enhanced liver is mildly enlarged, measuring 18.4 cm in length. The liver demonstrates diffusely diminished attenuation consis tent with hepatic steatosis. There is no intrahepatic biliary ductal dilatation. The hepatic veins an d portal veins are patent. Gallbladder: Unremarkable. Spleen: Normal in size and attenuation. Pancreas: Atrophic and grossly unremarkable. Adrenal glands: Unremarkable. Kidneys: The contrast enhanced kidneys demonstrate cortical atrophy and are without hydronephrosis. T he kidneys enhance symmetrically. Bilateral cortical and parapelvic cysts measure up to 4.3 cm. Addit ional subcentimeter cortical hypodensities also likely represent cysts but are too small for definiti ve characterization. A 5 mm nonobstructing calculus is seen in the lower pole of the right kidney. Ur othelial thickening is again suggested within the right renal pelvis. Abdominal vasculature: There is moderate to advanced atherosclerotic calcification and mild ectasia o f the abdominal aorta. A small aneurysm of the distal abdominal aorta measures up to 3.1 cm. Bowel: There are scattered colonic diverticula without CT evidence of acute diverticulitis. No bowel obstruction is seen. Mild colonic fecal retention is observed. Enteric contrast reaches the distal sm all bowel. The appendix is well-visualized and normal. Peritoneum: There is no intraperitoneal free air or abdominal ascites. There is an 11 mm lipoma withi n the right abdominal wall musculature seen on image #212. There is a fat-containing umbilical hernia . Lymphadenopathy: None. Pelvic viscera: The prostate gland is markedly enlarged and heterogeneous, noting median lobe hypertr ophy. The bladder wall is thickened and trabeculated indicating chronic outlet obstruction. There is a fat-containing right inguinal hernia. Skeletal structures: The skeletal structures are osteopenic. There is mild to moderate lumbosacral sp ondylosis. Degenerative change is also seen in the sacroiliac joints. No lytic or blastic lesions are seen. There are healed bilateral rib fractures. IMPRESSION: 1. No acute infectious or inflammatory findings are identified in the abdomen or pelvis. 2. A pleural-based lesion at the medial right lung base has not appreciably changed from the 09/20/2018 PET examination. 3. Mild cardiac enlargement and advanced emphysema. 4. Urothelial thickening is again suggested in the right renal pelvis. 5. There is no evidence of progressive metastatic disease in the abdomen or pelvis. 6. Right-sided nephrolithiasis. 7. Hepatomegaly and hepatic steatosis. 8. Additional findings as above. Electronically signed by: Reinaldo Monge M.D. 12/08/2018 11:13 AM
--- NOTE | 2018-12-08 13:00 | Hospitalist Progress Note ---
Date of Service December 08, 2018 Assessment & Plan (1) Acute leg pain: With swelling and erythema - possibly cellulitis however patient does have two small popliteal cysts on left knee. He reports that the swelling was mostly centered around his knee which was difficult to bend due to all the edema but is much better today. He had been wearing D[place] hose on that leg for four days as he was unable to bend down to remove them. They were clearly very tight as he has red nguyen from where the tops of the stockings were digging into his leg. It's possible that removal of the hose is more responsible for the improvement in his symptoms than the antibiotics. Given that he is immunosuppressed due to chemo I will continue antibiotics as he is improving. It may additionally help to heal his draining ear surgical site that is bothering him - No mets in the abd or pelvis on CT to suggest lymphatic obstruction - Venous Doppler negative for DVT - Continue intravenous Rocephin (2) Left leg swelling: See above. 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 Continue current inhaler treatment (5) Chronic respiratory failure: Stable. Continue home oxygen at 2 L/min (6) UTI (urinary tract infection): Urine culture with mixed mercedes. (7) Aortic aneurysm: On CT - A small aneurysm of the distal abdominal aorta measures up to 3.1 cm. Will need to follow outpatient (8) Chronic pain: Continue home methadone (9) Abdominal pain: left upper quadrant burning about half hour after eating. Will add ppi. Follow up with GI outpatient, may benefit from endoscopy (10) DVT prophylaxis: Lovenox subcu Dispo: PT/OT jw - would like to go to [facility] Subjective Mr. Maldonado reports numbness over his right ribs, pain half hour after eating in his left upper quadrant. Denies nausea or vomiting. Left leg erythema and edema improving. Right ear with foul smelling drainage (per patient) since June following removal of a cyst. Review of Systems Review of Systems: All systems reviewed & are unremarkable except as noted in HPI & below Physical Exam Physical Exam: General: no distress Eyes: normal inspection, PERLL Respiratory: chest non tender, clear to auscultation, normal breath sounds, no respiratory distress, no accessory muscle use Cardiac: regular rate and rhythm, no rub or gallop, no murmur, palpable pedal pulses GI/: active bowel sounds, no abd pain or tenderness, soft, non distended Extremities: normal range of motion, normal strength, tender left rogers, erythema on left lower extremity resolved, left leg edema > right Neuro/Psych: alert and oriented x 3, normal mood and affect Skin: normal color, dry, red lines from top of D[place] hose on left leg Results & Data Vital Signs (Past 12 Hours) Vital Signs Temp Pulse Resp BP Pulse Ox 12/08/18 07:44 36.7 C 64 18 125/72 93 PG Care Time/CCT Total # of Minutes Spent Total Time Spent with Patient: Total time spent is greater than 50% in coordination of care (as documented) at patient's floor/unit and/or counseling patient: (1) Acute leg pain Laterality: left Qualified Code(s): M79.605 - Pain in left leg
[2018-12-08] MEDS: cefTRIAXone SODIUM 2,000 MG in DEXTROSE 5% 50 ML IV SCH (15:48)
[2018-12-08] MEDS: TERAZOSIN HCL 1 MG CAP PO SCH (20:56)
[2018-12-08] MEDS: ENOXAPARIN INJ 40 MG/0.4 ML SYR SQ SCH (20:57)
[2018-12-08] MEDS: ATORVASTATIN 40 MG TAB PO SCH (20:57)
[2018-12-08] MEDS: AMLODIPINE BESYLATE 5 MG TAB PO SCH (20:59)
[2018-12-08] MEDS: PANTOprazole 40 MG TAB PO SCH (21:00)
[2018-12-09] MEDS: METHADONE HCL 10 MG TAB PO SCH ×5 (00:23→23:36)
[2018-12-09 08:06] LABS: Basophils # (auto) 0.01 K/uL (0-0.2); Basophils % (auto) 0.1 %; Eosinophils # (auto) 0.02 K/uL (0-0.5); Eosinophils % (auto) 0.2 %; Hematocrit (blood only) 37.5 % (42-52); Hemoglobin 12.6 g/dL (14.0-18.0); Immature Granulocytes # (auto) 0.08 K/uL (0.00-0.02); Immature Granulocytes % (auto) 0.7 %; Lymphocytes % (auto) 13.6 %; Mean Corpuscular Hgb Conc 33.6 g/dL (32-36); Mean Corpuscular Volume 90.4 fL (80-100); Mean Platelet Volume 9.6 fL (7.4-10.4); Monocytes % (auto) 7.6 %; Neutrophils # (auto) 9.17 K/uL (1.4-6.5); Neutrophils % (auto) 77.8 %; Platelet Count 211 K/uL (130-400); RDW Coefficient of Variation 13.5 % (11.5-14.5); RDW Standard Deviation 44.4 fL (36.4-46.3); Red Blood Count 4.15 M/uL (4.7-6.1); White Blood Count 11.78 K/uL (4.8-10.8)
[2018-12-09] MEDS: MAGNESIUM OXIDE 400 MG TAB PO SCH ×2 (08:10→21:57)
[2018-12-09] MEDS: ASCORBIC ACID 500 MG TAB PO SCH (08:10)
[2018-12-09] MEDS: CHOLECALCIFEROL (VITAMIN D) 400 UNITS TABLET PO SCH (08:10)
[2018-12-09] MEDS: DOCUSATE SODIUM 100 MG CAP PO SCH ×2 (08:10→21:55)
[2018-12-09] MEDS: CYANOCOBALAMIN (VITAMIN B-12) 100 MCG TABLET PO SCH (08:11)
[2018-12-09] MEDS: PANTOprazole 40 MG TAB PO SCH ×2 (08:11→21:57)
[2018-12-09] MEDS: PYRIDOXINE HCL 50 MG TAB PO SCH (08:11)
[2018-12-09] MEDS: BUDESONIDE/FORMOTEROL FUMARATE 160/4.5 60 PUFFS/INHALER INH SCH ×2 (08:12→21:57)
[2018-12-09] MEDS: TIOTROPIUM BROMIDE 5 PUFF/90 MCG INH INH SCH (08:13)
[2018-12-09] MEDS: CETIRIZINE HCL 10 MG TABLET PO SCH (08:14)
[2018-12-09 08:23] LABS: BUN Creatinine Ratio 19.1 (10-20); Calcium 9.4 mg/dl (8.5-10.1); Est GFR (African American) 77.9; Est GFR (Non-African American) 67.2
--- NOTE | 2018-12-09 08:42 | Hospitalist Progress Note ---
Date of Service December 09, 2018 Assessment & Plan (1) Acute leg pain: With swelling and erythema - possibly cellulitis however patient does have two small popliteal cysts on left knee. He reports that the swelling was mostly centered around his knee which was difficult to bend due to all the edema but has improved. He had been wearing D[place] hose on that leg for four days as he was unable to bend down to remove them. They were clearly very tight as he has red nguyen from where the tops of the stockings were digging into his leg. It's possible that removal of the hose is more responsible for the improvement in his symptoms than the antibiotics. Given that he is immunosuppressed due to chemo I will continue antibiotics as he is improving. It may additionally help to heal his draining ear surgical site that is bothering him - No mets in the abd or pelvis on CT to suggest lymphatic obstruction - Venous Doppler negative for DVT - Continue intravenous Rocephin (2) Left leg swelling: See above. 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 Continue current inhaler treatment (5) Chronic respiratory failure: Stable. Continue home oxygen at 2 L/min (6) UTI (urinary tract infection): Urine culture with mixed mercedes. (7) Aortic aneurysm: On CT - A small aneurysm of the distal abdominal aorta measures up to 3.1 cm. Will need to follow outpatient (8) Chronic pain: Continue home methadone (9) Abdominal pain: appears to be musculoskeletal - left lower ribs/luq - reproducible on palpation. No acute changes see on CT abd/pelvis 12/07 (10) Lung cancer: stage [address] Anand, hold Opdivo infusion scheduled for this week and reschedule next week. (11) DVT prophylaxis: Lovenox subcu Dispo: PT/OT jw - would like to go to [facility] Subjective Mr. Shetty reports continued left lower rib pain which he can palpate. He thought it felt better after a bowel movement today but the pain returned which he described as burning. He otherwise does not have complaints, left leg continues to improve Review of Systems Review of Systems: All systems reviewed & are unremarkable except as noted in HPI & below Physical Exam Physical Exam: General: no distress Eyes: normal inspection, PERLL Respiratory: chest non tender, clear to auscultation, normal breath sounds, no respiratory distress, no accessory muscle use Cardiac: regular rate and rhythm, no rub or gallop, no murmur, left lower extremity edema from the knee down GI/: active bowel sounds, no abd pain or tenderness, soft, non distended Extremities: normal range of motion, normal strength, non tender Neuro/Psych: alert and oriented x 3, normal mood and affect Skin: normal color, dry Results & Data Vital Signs (Past 12 Hours) Vital Signs Temp Pulse Resp BP BP Pulse Ox 12/09/18 07:46 36.8 C 99 H 18 137/89 96 12/09/18 00:18 36.4 C L 75 18 152/70 H 95 PG Care Time/CCT Total # of Minutes Spent Total Time Spent with Patient: Total time spent is greater than 50% in coordination of care (as documented) at patient's floor/unit and/or counseling patient: (1) Acute leg pain Laterality: left Qualified Code(s): M79.605 - Pain in left leg
[2018-12-09] MEDS: FINASTERIDE 5 MG TAB PO SCH (08:55)
[2018-12-09] MEDS: cefTRIAXone SODIUM 2,000 MG in DEXTROSE 5% 50 ML IV SCH (15:58)
[2018-12-09] MEDS: TERAZOSIN HCL 1 MG CAP PO SCH (21:55)
[2018-12-09] MEDS: ATORVASTATIN 40 MG TAB PO SCH (21:56)
[2018-12-09] MEDS: ENOXAPARIN INJ 40 MG/0.4 ML SYR SQ SCH (21:57)
[2018-12-09] MEDS: AMLODIPINE BESYLATE 5 MG TAB PO SCH (21:57)
[2018-12-10] MEDS: METHADONE HCL 10 MG TAB PO SCH ×4 (05:02→22:47)
[2018-12-10 05:59] LABS: Basophils # (auto) 0.02 K/uL (0-0.2); Basophils % (auto) 0.2 %; Eosinophils # (auto) 0.24 K/uL (0-0.5); Eosinophils % (auto) 2.9 %; Hematocrit (blood only) 35.4 % (42-52); Hemoglobin 11.5 g/dL (14.0-18.0); Immature Granulocytes # (auto) 0.09 K/uL (0.00-0.02); Immature Granulocytes % (auto) 1.1 %; Lymphocytes # (auto) 1.86 K/uL (1.2-3.4); Lymphocytes % (auto) 22.4 %; Mean Corpuscular Hgb Conc 32.5 g/dL (32-36); Mean Platelet Volume 9.4 fL (7.4-10.4); Monocytes # (auto) 1.14 K/uL (0.11-0.59); Monocytes % (auto) 13.7 %; Neutrophils # (auto) 4.97 K/uL (1.4-6.5); Neutrophils % (auto) 59.7 %; Platelet Count 189 K/uL (130-400); RDW Coefficient of Variation 13.8 % (11.5-14.5); RDW Standard Deviation 45.5 fL (36.4-46.3); Red Blood Count 3.89 M/uL (4.7-6.1); White Blood Count 8.32 K/uL (4.8-10.8)
[2018-12-10 06:29] LABS: Calcium 8.4 mg/dl (8.5-10.1); Creatinine Clr Calc Pharmacy 73.6 ml/min; Est GFR (African American) 78.7; Est GFR (Non-African American) 67.9
[2018-12-10] MEDS: BUDESONIDE/FORMOTEROL FUMARATE 160/4.5 60 PUFFS/INHALER INH SCH ×2 (07:51→20:30)
[2018-12-10] MEDS: TIOTROPIUM BROMIDE 5 PUFF/90 MCG INH INH SCH (07:53)
[2018-12-10] MEDS: DOCUSATE SODIUM 100 MG CAP PO SCH ×2 (09:07→20:30)
[2018-12-10] MEDS: CHOLECALCIFEROL (VITAMIN D) 400 UNITS TABLET PO SCH (09:07)
[2018-12-10] MEDS: CETIRIZINE HCL 10 MG TABLET PO SCH (09:07)
[2018-12-10] MEDS: CYANOCOBALAMIN (VITAMIN B-12) 100 MCG TABLET PO SCH (09:09)
[2018-12-10] MEDS: FINASTERIDE 5 MG TAB PO SCH (09:09)
[2018-12-10] MEDS: PANTOprazole 40 MG TAB PO SCH ×2 (09:09→20:30)
[2018-12-10] MEDS: ASCORBIC ACID 500 MG TAB PO SCH (09:09)
[2018-12-10] MEDS: PYRIDOXINE HCL 50 MG TAB PO SCH (09:09)
[2018-12-10] MEDS: MAGNESIUM OXIDE 400 MG TAB PO SCH ×2 (09:10→20:30)
--- NOTE | 2018-12-10 11:38 | XRay Report ---
KUB HISTORY: Abdominal distention. Left-sided flank pain. COMPARISON: Abdomen and pelvis CT 12/08/2018. FINDINGS: The bowel gas pattern is unremarkable. There are no dilated loops of small bowel to suggest an obstruction. There is residual oral contrast throughout the colon from the recent CT examination . Linear calcification overlying the left kidney is demonstrated to be vascular on the prior study. N o renal or ureteral calculi identified. No pneumoperitoneum or pneumatosis. IMPRESSION: 1. No renal or ureteral stones. 2. No evidence for bowel obstruction. Electronically signed by: Cameron Lee M.D. 12/10/2018 11:37 AM
[2018-12-10] MEDS: SENNA 8.6 MG TAB PO SCH ×2 (12:05→20:30)
[2018-12-10] MEDS: LIDOCAINE 5% 1 PATCH TD SCH (13:13)
[2018-12-10] MEDS: cefTRIAXone SODIUM 2,000 MG in DEXTROSE 5% 50 ML IV SCH (17:17)
--- NOTE | 2018-12-10 18:26 | Hospitalist Progress Note ---
Date of Service December 10, 2018 Assessment & Plan (1) Acute leg pain: With swelling and erythema - possibly cellulitis however patient does have two small popliteal cysts on left knee. He reports that the swelling was mostly centered around his knee which was difficult to bend due to all the edema but has improved. He had been wearing [place] hose on that leg for four days as he was unable to bend down to remove them. They were clearly very tight as he has red nguyen from where the tops of the stockings were digging into his leg. It's possible that removal of the hose is more responsible for the improvement in his symptoms than the antibiotics. Given that he is immunosuppressed due to chemo I will continue antibiotics as he is improving. It may additionally help to heal his draining ear surgical site that is bothering him - No mets in the abd or pelvis on CT to suggest lymphatic obstruction - Venous Doppler negative for DVT - Continue intravenous Rocephin (2) Left leg swelling: See above. 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 Continue current inhaler treatment (5) Chronic respiratory failure: Stable. Continue home oxygen at 2 L/min (6) UTI (urinary tract infection): Urine culture with mixed mercedes. (7) Aortic aneurysm: On CT - A small aneurysm of the distal abdominal aorta measures up to 3.1 cm. Will need to follow outpatient (8) Chronic pain: Continue home methadone (9) Abdominal pain: appears to be musculoskeletal - left lower ribs/luq - reproducible on palpation. No acute changes see on CT abd/pelvis 12/07 Lidoderm for left musculoskeletal pain KUB for abdominal distention with no obstruction (10) Lung cancer: stage [address] Anand, hold Opdivo infusion scheduled for this week and reschedule next week. (11) DVT prophylaxis: Lovenox subcu Dispo: PT/OT jw - will return home with HH Subjective Mr. Shetty still complains of left rib/muscle pain. Leg edema is improving. Review of Systems Review of Systems: All systems reviewed & are unremarkable except as noted in HPI & below Physical Exam Physical Exam: General: no distress Eyes: normal inspection, PERLL Respiratory: chest non tender, clear to auscultation, normal breath sounds, no respiratory distress, no accessory muscle use Cardiac: regular rate and rhythm, no rub or gallop, no murmur, no edema, no jvd GI/: active bowel sounds, no abd pain or tenderness, soft, distended Extremities: normal range of motion, normal strength, non tender Neuro/Psych: alert and oriented x 3, normal mood and affect Skin: normal color, dry Results & Data Vital Signs (Past 12 Hours) Vital Signs Temp Pulse Resp BP Pulse Ox 12/10/18 15:41 36.4 C L 78 20 151/69 H 93 12/10/18 08:38 74 18 91 12/10/18 07:39 88 20 127/67 95 PG Care Time/CCT Total # of Minutes Spent Total Time Spent with Patient: Total time spent is greater than 50% in coordination of care (as documented) at patient's floor/unit and/or counseling patient: (1) Acute leg pain Laterality: left Qualified Code(s): M79.605 - Pain in left leg
[2018-12-10] MEDS: AMLODIPINE BESYLATE 5 MG TAB PO SCH (20:30)
[2018-12-10] MEDS: ATORVASTATIN 40 MG TAB PO SCH (20:30)
[2018-12-10] MEDS: ENOXAPARIN INJ 40 MG/0.4 ML SYR SQ SCH (20:30)
[2018-12-10] MEDS: TERAZOSIN HCL 1 MG CAP PO SCH (20:30)
[2018-12-11] MEDS: METHADONE HCL 10 MG TAB PO SCH ×2 (05:21→12:47)
[2018-12-11] MEDS: DOCUSATE SODIUM 100 MG CAP PO SCH (08:48)
[2018-12-11] MEDS: LIDOCAINE 5% 1 PATCH TD SCH (08:48)
[2018-12-11] MEDS: FINASTERIDE 5 MG TAB PO SCH (08:52)
[2018-12-11] MEDS: MAGNESIUM OXIDE 400 MG TAB PO SCH (08:52)
[2018-12-11] MEDS: PANTOprazole 40 MG TAB PO SCH (08:53)
[2018-12-11] MEDS: CHOLECALCIFEROL (VITAMIN D) 400 UNITS TABLET PO SCH (08:53)
[2018-12-11] MEDS: SENNA 8.6 MG TAB PO SCH (08:54)
[2018-12-11] MEDS: TIOTROPIUM BROMIDE 5 PUFF/90 MCG INH INH SCH (08:54)
[2018-12-11] MEDS: CYANOCOBALAMIN (VITAMIN B-12) 100 MCG TABLET PO SCH (08:55)
[2018-12-11] MEDS: BUDESONIDE/FORMOTEROL FUMARATE 160/4.5 60 PUFFS/INHALER INH SCH (08:55)
[2018-12-11] MEDS: PYRIDOXINE HCL 50 MG TAB PO SCH (08:56)
[2018-12-11] MEDS: ASCORBIC ACID 500 MG TAB PO SCH (08:57)
[2018-12-11] MEDS: CETIRIZINE HCL 10 MG TABLET PO SCH (09:00)
--- NOTE | 2018-12-11 13:03 | Discharge Summary ---
Date of Service December 11, 2018 Admission HPI Per Admitting Provider 73-year-old male with COPD and chronic respiratory failure on chronic home oxygen. For the past several days he has had worsening swelling and discomfort of the entire left lower extremity which is limiting his ambulatory capacity. He came to the ED today for evaluation. Venous Doppler is negative for DVT. He does have a history of bladder cancer and there may be some lymphadenopathy in the pelvic region causing obstruction and swelling of the left lower extremity. Venous Doppler is negative for DVT. There is some evidence of UTI also. He has been started on Rocephin in the ED. He is placed in observation status for further evaluation and treatment. He denies any fever. There is no current leukocytosis. Respiratory status is stable. He is chronic opioid dependent for chronic pain syndrome and takes methadone daily. Principal Diagnosis left leg cellulitis Discharge Exam Constitutional WD/WN, vitals as above Respiratory normal respiratory effort, lungs clear to auscultation Cardiovascular Rate/Rhythm: regular rate and regular rhythm Extremities: + edema left leg edema > right Gastrointestinal (Abdomen) normal bowel sounds, soft, nontender, no hepatosplenomegaly Musculoskeletal no cyanosis or clubbing, extremities motor strength 5/5 Neurologic moves all extremities and awake Psychiatric A+Ox3, euthymic affect Discharge Data Allergies Allergy/AdvReac Type Severity Reaction Status Date / Time Bactrim Allergy Severe TONGUE Verified 12/02/17 08:11 SWELLS/FONG mupirocin Allergy Severe ANAPHYLAXIS Verified 12/07/18 14:12 sulfamethoxazole Allergy Severe TONGUE Verified 12/07/18 14:12 SWELLS/FONG trimethoprim Allergy Severe TONGUE Verified 12/07/18 14:12 SWELLS/FONG Iodinated Contrast- Oral and Allergy Intermediate HIVES/ITCHI Verified 12/07/18 14:12 IV Dye NG lisinopril Allergy Intermediate Tongue Verified 12/07/18 14:12 Swelling mustard Allergy Intermediate Hives, Verified 12/07/18 14:12 SOB, Itchy aspirin Allergy Mild ITCHY Verified 12/07/18 14:12 adhesive AdvReac Intermediate Tape - Rash Verified 12/07/18 14:12 Consultations 12/07/18 16:31 ED Decision to Admit Stat Ordered Studies 12/07/18 12:18 US venous doppler LE LT Stat 12/07/18 18:13 CT abd pelvis oral and IV con Routine Hospital Course (1) Acute leg pain: With swelling and erythema - possibly cellulitis however patient does have two small popliteal cysts on left knee. He reports that the swelling was mostly centered around his knee which was difficult to bend due to edema but has improved. He had been wearing D[place] hose on that leg for four days as he was unable to bend down to remove them. They were clearly very tight as he has red nguyen from where the tops of the stockings were digging into his leg. It's possible that removal of the hose is more responsible for the improvement in his symptoms than the antibiotics. Given that he is immunosuppressed due to chemo I will continue antibiotics as he is improving. It may additionally help to heal his draining ear surgical site that is bothering him and UTI - No mets in the abd or pelvis on CT to suggest lymphatic obstruction - Venous Doppler negative for DVT - intravenous Rocephin - Keflex for home - left knee joint does not appear septic though patient complains of decreased range of motion and stiffness. No erythema or warmth to touch, no obvious effusion though he does have general swelling from knee to foot. Xrays 12/03 of left femur, tib/fib, ankle at the time of his initial complaint of leg swelling and presentation to the ED did not show any fractures. (2) Left leg swelling: See above. (3) Bladder cancer metastasized to pelvic region: No s/s of lymphadenopathy on CT (4) COPD (chronic obstructive pulmonary disease): Stable. Continue current inhaler treatment (5) Chronic respiratory failure: Stable. Continue home oxygen at 2 L/min (6) UTI (urinary tract infection): Urine growing gram positive bacteria - sensitivities pending - three days of ceftriaxone IV and will have Keflex for home (7) Aortic aneurysm: On CT - A small aneurysm of the distal abdominal aorta measures up to 3.1 cm. Will need to follow outpatient (8) Chronic pain: Continue home methadone (9) Abdominal pain: appears to be musculoskeletal vs possible pre-rash herpetic neuralgia - left lower ribs/luq - reproducible on palpation, skin acutely sensitive. No acute changes see on CT abd/pelvis 12/07 to suggest abdominal/pulm source Lidoderm for left musculoskeletal pain without much relief KUB for abdominal distention with no obstruction Will give 100 mg po gabapentin at bedtime, can titrate up with home pcp as needed (10) Lung cancer: stage [address] Anand, hold Opdivo infusion scheduled for this week and reschedule next week. (11) DVT prophylaxis: Lovenox subcu in patient Dispo: PT/OT evals - will return home with HH Total Time Total Time Spent Total Time Spent (In Minutes): >30 minutes Discharge Plan Discharge Items Patient Disposition: Home - Home Health Services Reason For Visit: LEFT LEG SWELLING,AMBULATORY DYSFUNCTION Discharge Diagnosis: left leg swelling Discharge Goals: Decrease discomfort and Improve function Activity: Resume your previous activity Non-emergency contact: Primary Care Provider Call non-emergency contact if: you have any medication questions, your symptoms worsen and you have a fever Follow-up/Referrals: Shania Jaramillo CRNP [Nurse Practitioner] - 12/16/18 1:50 pm (Please, follow up at [facility] with Shania HERNANDEZ on December 16 at 1:50 pm. *If you need to change this appointment, call the office at [phone].) Diet: Regular Addtl Provider Instructions: Please follow up with your primary care provider next week. You may also consider following up with orthopedics regarding your knee stiffness and Garcia's cyst. I have started you on gabapentin for the pain in your left side. This can be titrated up with your doctor if it is not providing adequate relief You will recieve your next Opdivo infusion next week as listed above. Home Health can wrap your left leg with GALI wrap to help with the swelling. Elevate your leg as much as possible. Prescriptions: New cephalexin [Keflex] 500 mg capsule 500 mg PO QID Qty: 16 RF: 0 gabapentin 100 mg capsule 100 mg PO HS Qty: 7 RF: 0 Continued cholecalciferol (vitamin D3) 400 unit capsule 400 unit PO DAILY RF: 0 atorvastatin 80 mg Tablet 80 mg PO PM RF: 0 ascorbic acid (vitamin C) [Vitamin C] 1,000 mg Tablet 1 g PO QAM RF: 0 cyanocobalamin (vitamin B-12) [Vitamin B-12] 100 mcg Tablet 100 mcg PO QAM RF: 0 methadone 10 mg Tablet 10 mg PO QID RF: 0 terazosin 2 mg Capsule 2 mg PO QPM RF: 0 docusate sodium 100 mg Capsule 100 mg PO BID RF: 0 pyridoxine (vitamin B6) [Vitamin B-6] 100 mg Tablet 100 mg PO QAM RF: 0 albuterol sulfate 90 mcg/actuation Hfa Aerosol Inhaler 2 puff INHALATION Q4H PRN (Reason: Shortness Of Breath) RF: 0 finasteride 5 mg Tablet 5 mg PO QAM RF: 0 Spiriva with HandiHaler 18 mcg Capsule, W/Inhalation Device 1 cap INHALATION QAM RF: 0 Symbicort 160-4.5 mcg/actuation Hfa Aerosol Inhaler 2 puff INHALATION BID RF: 0 Nebulizer Treatments 1 dose Inhalation QID RF: 0 magnesium oxide 400 mg magnesium Capsule 400 mg PO BID RF: 0 sennosides 8.6 mg Tablet 2 tabs PO BID PRN (Reason: Constipation) Qty: 0 RF: 0 sennosides 8.6 mg Tablet 17.2 mg PO BID PRN (Reason: Constipation) RF: 0 amlodipine [Norvasc] 5 mg tablet 5 mg PO HS RF: 0 cetirizine [Zyrtec] 10 mg tablet 5 mg PO QAM RF: 0 Stand-Alone Forms: [facility] Discharge Orders: Discharge Order (Routine); Ordered 12/11/18 Ordered By: Carey Burris Admission Data Admit Date/Time: 12/09/18 11:36 Attending Provider: Jayro Nash Admit Provider: Jay Fall Primary Care Provider: PCP,NO Other Providers: Jay Fall Service: Medical Other Pending Studies at Discharge: Yes Studies:: sensitivities on urine culture
== END 2018-12-11 17:05 | disposition home health service (06) | DRG 603 ==
LOC: ED 11:40 → 4W 11:40 → SUATTDRO 17:16 → 4W 17:52

== ENCOUNTER 2019-01-09 12:16 | Inpatient (IN) ==
--- NOTE | 2019-01-09 13:30 | Emergency Department Note ---
Entered by Katrina Rojas acting as a scribe for Jhonathan Gibson DO History of Present Illness General Chief complaint: Swelling/Edema to Extremity Stated complaint: FOOT AND LEG SWELLED UP, FATIGUE Time Seen by Provider: 01/09/19 12:53 Source: patient History of Present Illness Onset (ago): month(s) 1 Location: lower extremity and left Pain Consistency: + other (persistent) Maximum Pain Intensity: 7 Current Pain Intensity: 7 Associated symptoms: + fever/chills (negative fever) and + other (swelling in left leg); no shortness of breath Treatments prior to arrival: other (tylenol) The patient is a 73 year old male who presents to the Emergency Room with complaints of persistent left leg pain that has been ongoing for over a month. He was at the hospital about a month ago, was discharged, and the problem is still present and worsening. Last hospital visit he was found to have no DVTs. The patient reports his swelling and pain is constant, and worsens when he moves around. He reports chills this morning, and denies SOB. The patient has a history of lung cancer, COPD, and bladder cancer. He wears oxygen and is on Methadone 10mg, 4 a day. He took 2 Tylenol at 5:30 this morning as well. Home Medications Home Medications Medication Instructions Recorded Confirmed Type Spiriva with HandiHaler 1 cap INHALATION QAM 03/30/18 01/09/19 History Symbicort 2 puff INHALATION BID 03/30/18 01/09/19 History albuterol sulfate 2 puff INHALATION Q4H PRN 03/30/18 01/09/19 History ascorbic acid (vitamin C) [Vitamin 1 g PO QAM 03/30/18 01/09/19 History C] atorvastatin 80 mg PO PM 03/30/18 01/09/19 History cyanocobalamin (vitamin B-12) 100 mcg PO QAM 03/30/18 01/09/19 History [Vitamin B-12] docusate sodium 100 mg PO BID 03/30/18 01/09/19 History finasteride 5 mg PO QAM 03/30/18 01/09/19 History methadone 10 mg PO QID 03/30/18 01/09/19 History pyridoxine (vitamin B6) [Vitamin 100 mg PO QAM 03/30/18 01/09/19 History B-6] terazosin 2 mg PO QPM 03/30/18 01/09/19 History cholecalciferol (vitamin D3) 400 400 unit PO DAILY cap 12/01/18 01/09/19 History unit capsule magnesium oxide 400 mg PO BID 12/03/18 01/09/19 History amlodipine [Norvasc] 5 mg PO HS 12/07/18 01/09/19 History sennosides 17.2 mg PO BID PRN 12/07/18 01/09/19 History albuterol sulfate 1.25 mg INHALATION QID 12/28/18 01/09/19 History lidocaine [Lidoderm] 1 patch TOP DAILY PRN #15 ea 12/28/18 01/09/19 Rx cetirizine 5 mg PO DAILY 01/09/19 01/09/19 History Allergies Allergy/AdvReac Type Severity Reaction Status Date / Time Bactrim Allergy Severe TONGUE Verified 12/02/17 08:11 SWELLS/FONG mupirocin Allergy Severe ANAPHYLAXIS Verified 01/09/19 16:05 sulfamethoxazole Allergy Severe TONGUE Verified 01/09/19 16:05 SWELLS/FONG trimethoprim Allergy Severe TONGUE Verified 01/09/19 16:05 SWELLS/FONG Iodinated Contrast- Oral and Allergy Intermediate HIVES/ITCHI Verified 01/09/19 16:05 IV Dye NG lisinopril Allergy Intermediate Tongue Verified 01/09/19 16:05 Swelling mustard Allergy Intermediate Hives, Verified 01/09/19 16:05 SOB, Itchy aspirin Allergy Mild ITCHY Verified 01/09/19 16:05 adhesive AdvReac Intermediate Tape - Rash Verified 01/09/19 16:05 Past Med/Surg History Medical History Chronic respiratory failure (Chronic) COPD (chronic obstructive pulmonary disease) (Chronic) Opioid dependence (Chronic) Bladder cancer metastasized to pelvic region (Acute) BPH (benign prostatic hyperplasia) (Chronic) COPD (chronic obstructive pulmonary disease) (Chronic) Elevated PSA (Chronic) H/O malignant neoplasm of skin (Chronic) Hyperlipidemia (Chronic) Non-small cell lung cancer (Chronic) CURRENTLY BEING TREATED W/ CHEMOTHERAPY Stroke (Chronic) 2009 - NO PERIPHERAL VISION RT SIDE - NO NEUROLOGIST Urothelial carcinoma (Chronic) H/O hematuria (Resolved) Hypertension (Resolved) Acute leg pain (Inactive) Left leg swelling (Inactive) Bladder cancer CURRENTLY BEING TREATED W/ CHEMOTHERAPY Chronic back pain Constipation Inguinal hernia BL Osteoarthritis Umbilical hernia Surgical History H/O prostate biopsy (Acute) H/O Moh's micrographic surgery for skin cancer (Resolved) H/O hand surgery (Resolved) H/O prostatectomy History of bronchoscopy W/ BIOPSY History of colonoscopy History of surgery TRANSURETHRAL RESECTION OF BLADDER TUMOR X 3 History of surgery PLACEMENT OF MEDIPORT W/ REMOVAL History of ureter stent W/ REMOVAL Family History Father , 69yo [place], DM, arthritis, HTN Diabetes Cardiac disorder Hypertension Mother , age 84 from stroke Cardiac disorder Hypertension Brother Diabetes Cardiac disorder Hypertension Cancer, face Sister History of kidney cancer Hypertension Unknown Lung cancer Leukemia Basal cell carcinoma Social History Preferred Language: Peruvian Communication Ability: Effective Visual Impairment: No Limitations Hearing Ability: Professional Skater Required: Yes Beliefs That Will Affect Care: None marital status: marital status details: 1 son and 3 daughters Current Living Situation: Alone Current Living Situation Comment: lives in [place] current occupational status: 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 and A total of 10 systems reviewed and were otherwise negative Physical Exam Vital Signs Vital Signs - 24 hr 01/09/19 12:39 01/09/19 13:53 01/09/19 14:00 Temperature 36.9 C Temperature Source Oral Sepsis Recent Fever Within 48 Hours No Sepsis New/Unexplained Change in Mental Status No Sepsis Action Taken by Nursing No Action Required Pulse Rate 91 H 85 81 Pulse Rate [Apical] Pulse Rate from SpO2 Sensor Respiratory Rate 20 20 19 Blood Pressure 107/54 L Blood Pressure [Right Arm] Blood Pressure Mean 71 Blood Pressure Mean [Right Arm] Pulse Oximetry 97 Oxygen Delivery Method Nasal Cannula Oxygen Flow Rate 2 01/09/19 14:30 01/09/19 15:00 01/09/19 16:38 Temperature Temperature Source Sepsis Recent Fever Within 48 Hours Sepsis New/Unexplained Change in Mental Status Sepsis Action Taken by Nursing Pulse Rate 79 78 83 Pulse Rate [Apical] 82 Pulse Rate from SpO2 Sensor 82 Respiratory Rate 17 18 22 Blood Pressure 110/64 Blood Pressure [Right Arm] 110/64 Blood Pressure Mean 79 Blood Pressure Mean [Right Arm] 79 Pulse Oximetry 97 Oxygen Delivery Method Nasal Cannula Oxygen Flow Rate 2 01/09/19 16:40 01/09/19 17:00 01/09/19 17:08 Temperature Temperature Source Sepsis Recent Fever Within 48 Hours Sepsis New/Unexplained Change in Mental Status Sepsis Action Taken by Nursing Pulse Rate 80 83 90 Pulse Rate [Apical] Pulse Rate from SpO2 Sensor 80 84 91 H Respiratory Rate 20 22 29 H Blood Pressure 134/73 134/73 Blood Pressure [Right Arm] Blood Pressure Mean 93 93 Blood Pressure Mean [Right Arm] Pulse Oximetry 97 96 97 Oxygen Delivery Method Oxygen Flow Rate 01/09/19 17:30 Temperature Temperature Source Sepsis Recent Fever Within 48 Hours Sepsis New/Unexplained Change in Mental Status Sepsis Action Taken by Nursing Pulse Rate 86 Pulse Rate [Apical] Pulse Rate from SpO2 Sensor 112 H Respiratory Rate 22 Blood Pressure 128/67 Blood Pressure [Right Arm] Blood Pressure Mean 87 Blood Pressure Mean [Right Arm] Pulse Oximetry 81 L Oxygen Delivery Method Oxygen Flow Rate GENERAL: Patient is awake alert in no acute distress patient is resting comfortably and showing no signs of anxiety EYES: The conjunctivae are clear. The pupils are round and reactive. EARS, NOSE, MOUTH AND THROAT: The nose is without any evidence of any deformity. Mucous membranes are moist tongue is midline NECK: The neck is nontender and supple. RESPIRATORY: Diminished breath sounds are noted throughout. There are no rales rhonchi or wheezing. There is no tachypnea or conversational dyspnea. CARDIOVASCULAR: Regular rate and rhythm noted there no murmurs rubs or gallops normal S1 normal S2 GASTROINTESTINAL: The abdomen is soft. Bowel sounds are present in all quadrants. Abdomen is nontender MUSCULOSKELETAL/EXTREMITIES: There is no evidence of gross deformity full range of motion is noted in the hips and shoulders SKIN: There is edema noted to the left lower extremity compared to the right. Erythema is noted over the distal left foot. There is no lymphangitic streaking. NEUROLOGIC: Patient is awake alert and oriented x3. Course 1300: Past medical records reviewed. The patient was evaluated in room B05. A complete history and physical exam was performed. 1723: I spoke to SUMIT Diaz, about furthering care for the patient. I updated the patient who agreed with the treatment plan. Administered Medications Amlodipine Besylate (Norvasc) 5 mg PO HS [facility] Stop: 02/08/19 20:59 Last Admin: 01/10/19 21:51 Dose: 5 mg Documented by: [id number] Admin: 01/09/19 22:09 Dose: 5 mg Documented by: [id number] Atorvastatin Calcium (Lipitor) 80 mg PO PM [facility]KIS Stop: 02/08/19 20:59 Last Admin: 01/09/19 22:11 Dose: Not Given Documented by: [id number] Budesonide/Formoterol Fumarate (Symbicort 160mcg/4.5mcg) 2 puffs INH BID [facility] Stop: 02/08/19 20:59 Last Admin: 01/11/19 08:24 Dose: 2 puffs Documented by: [id number] Admin: 01/10/19 21:42 Dose: 2 puffs Documented by: [id number] Admin: 01/10/19 08:06 Dose: 2 puffs Documented by: [id number] Admin: 01/09/19 22:09 Dose: 2 puffs Documented by: [id number] Cetirizine HCl (Zyrtec) 5 mg PO DAILY [facility] Stop: 02/09/19 08:59 Last Admin: 01/11/19 08:23 Dose: 5 mg Documented by: [id number] Admin: 01/10/19 08:06 Dose: 5 mg Documented by: [id number] Diclofenac Sodium (Voltaren 1% Top) 4 appln EXT QID [facility] Stop: 02/09/19 17:04 Last Admin: 01/11/19 13:50 Dose: 4 appln Documented by: [id number] Admin: 01/11/19 08:25 Dose: 4 appln Documented by: [id number] Admin: 01/10/19 21:42 Dose: 4 appln Documented by: [id number] Admin: 01/10/19 17:51 Dose: 4 appln Documented by: [id number] Docusate Sodium (Colace) 100 mg PO BID [facility] Stop: 02/08/19 20:59 Last Admin: 01/11/19 08:29 Dose: 100 mg Documented by: [id number] Admin: 01/10/19 21:51 Dose: 100 mg Documented by: [id number] Admin: 01/10/19 08:04 Dose: 100 mg Documented by: [id number] Admin: 01/09/19 22:08 Dose: 100 mg Documented by: [id number] Finasteride (Proscar) 5 mg PO QAM [facility] Stop: 02/09/19 08:59 Last Admin: 01/11/19 08:29 Dose: 5 mg Documented by: [id number] Admin: 01/10/19 08:04 Dose: 5 mg Documented by: [id number] Heparin Sodium (Porcine) (Heparin Sodium (Porcine)) 5,000 units SQ Q8 [facility] Stop: 02/08/19 21:59 Last Admin: 01/11/19 13:50 Dose: 5,000 units Documented by: [id number] Cosigned by: [id number] Admin: 01/11/19 05:21 Dose: 5,000 units Documented by: [id number] Cosigned by: [id number] Admin: 01/10/19 21:43 Dose: 5,000 units Documented by: [id number] Cosigned by: [id number] Admin: 01/10/19 14:05 Dose: 5,000 units Documented by: [id number] Cosigned by: [id number] Admin: 01/10/19 05:19 Dose: 5,000 units Documented by: [id number] Cosigned by: [id number] Admin: 01/09/19 22:15 Dose: 5,000 units Documented by: [id number] Cosigned by: [id number] Daptomycin 450 mg/ Syringe 9 mls @ 3.25 mls/min IV Q24H [facility]; Protocol Stop: 01/19/19 20:59 Last Admin: 01/10/19 21:51 Dose: 3.25 mls/min Documented by: [id number] Admin: 01/09/19 22:02 Dose: 3.25 mls/min Documented by: [id number] Ioversol (Optiray 320 100ml) 89 ml IV ONCE PRN PRN Reason: Interaction Checking Stop: 01/13/19 22:35 Last Admin: 01/09/19 22:37 Dose: 89 ml Documented by: [id number] Magnesium Oxide (Mag-Ox) 400 mg PO BID [facility] Stop: 02/08/19 20:59 Last Admin: 01/11/19 08:22 Dose: 400 mg Documented by: [id number] Admin: 01/10/19 21:51 Dose: 400 mg Documented by: [id number] Admin: 01/10/19 08:04 Dose: 400 mg Documented by: [id number] Admin: 01/09/19 22:08 Dose: 400 mg Documented by: [id number] Methadone HCl (Dolophine) 10 mg PO 0500,1100,1700,2300 [facility] Stop: 01/23/19 20:59 Last Admin: 01/11/19 11:33 Dose: 10 mg Documented by: [id number] Pyridoxine HCl (Vitamin B-6) 100 mg PO QAM [facility] Stop: 02/09/19 08:59 Last Admin: 01/11/19 08:23 Dose: 100 mg Documented by: [id number] Admin: 01/10/19 08:06 Dose: 100 mg Documented by: [id number] Terazosin HCl (Hytrin) 2 mg PO QPM [facility] Stop: 02/08/19 20:59 Last Admin: 01/10/19 21:51 Dose: 2 mg Documented by: [id number] Admin: 01/09/19 22:11 Dose: 2 mg Documented by: [id number] Tiotropium [place] (Spiriva) 1 puffs INH QAM [facility] Stop: 02/09/19 08:59 Last Admin: 01/11/19 08:24 Dose: 1 puffs Documented by: [id number] Admin: 01/10/19 08:05 Dose: 1 puffs Documented by: [id number] Discontinued Medications Diphenhydramine HCl (Benadryl) 25 mg IV ONE ONE Stop: 01/09/19 20:15 Last Admin: 01/09/19 21:50 Dose: 25 mg Documented by: [id number] Ceftriaxone Sodium (Rocephin) 1,000 mg in 50 mls @ 100 mls/hr IV NOW STA Stop: 01/09/19 17:40 Last Infusion: 01/09/19 18:17 Dose: 0 mls/hr Documented by: [id number] Admin: 01/09/19 17:47 Dose: 100 mls/hr Documented by: [id number] Sodium Chloride (Nss 1000ml) 1,000 mls @ 80 mls/hr IV .[id number] [facility] Stop: 02/08/19 20:13 Last Infusion: 01/10/19 17:49 Dose: 0 mls/hr Documented by: [id number] Admin: 01/10/19 08:08 Dose: 80 mls/hr Documented by: [id number] Infusion: 01/10/19 08:08 Dose: 80 mls/hr Documented by: [id number] Admin: 01/09/19 22:00 Dose: 80 mls/hr Documented by: [id number] Methylprednisolone 60 mg/ (Syringe) 0.96 mls @ 1.5 mls/min IV TODAY@2115 [facility] Stop: 01/09/19 23:00 Last Admin: 01/09/19 21:50 Dose: 1.5 mls/min Documented by: [id number] Methadone HCl (Dolophine) 10 mg PO 0500,1100,1700,2100 [facility] Stop: 01/23/19 20:59 Last Admin: 01/11/19 05:17 Dose: 10 mg Documented by: [id number] Admin: 01/10/19 21:51 Dose: 10 mg Documented by: [id number] Admin: 01/10/19 18:02 Dose: 10 mg Documented by: [id number] Admin: 01/10/19 10:56 Dose: 10 mg Documented by: [id number] Admin: 01/10/19 05:19 Dose: 10 mg Documented by: [id number] Admin: 01/09/19 22:14 Dose: 10 mg Documented by: [id number] Medical Decision Making Differential Diagnosis Differential diagnosis includes: cellulitis, abscess, MRSA infection, DVT, necrotizing fasciitis, dermatitis, drug eruption, as well as others were entertained. Medical Records Attestation: I reviewed the patient's medical records. Home Medications Current Medication List: was personally reviewed by me Laboratory Data Attestation: I reviewed the patient's lab results. Result diagrams: 01/10/19 05:23 01/11/19 04:46 Lab Results 01/09/19 01/09/19 01/09/19 Range/Units 13:55 13:55 13:55 WBC 15.24 H (4.8-10.8) K/uL RBC 3.58 L (4.7-6.1) M/uL Hgb 10.5 L (14.0-18.0) g/dL Hct 31.8 L (42-52) % MCV 88.8 (80-100) fL MCH 29.3 (25-34) pg MCHC 33.0 (32-36) g/dL RDW Std Deviation 48.0 H (36.4-46.3) fL RDW Coeff of James 14.6 H (11.5-14.5) % Plt Count 373 (130-400) K/uL MPV 9.0 (7.4-10.4) fL Immature Gran % (Auto) 0.9 % Neut % (Auto) 75.9 % Lymph % (Auto) 9.9 % Fountain % (Auto) 12.4 % Eos % (Auto) 0.7 % Baso % (Auto) 0.2 % Immature Gran # (Auto) 0.14 H (0.00-0.02) K/uL Neut # (Auto) 11.57 H (1.4-6.5) K/uL Lymph # (Auto) 1.51 (1.2-3.4) K/uL Fountain # (Auto) 1.89 H (0.11-0.59) K/uL Eos # (Auto) 0.10 (0-0.5) K/uL Baso # (Auto) 0.03 (0-0.2) K/uL ESR > 90 H (0-14) mm/hr PT 12.1 H (9.0-12.0) Seconds INR 1.2 H (0.9-1.1) APTT 28.8 (21.0-31.0) Seconds PTT Ratio 1.1 Sodium (136-145) mmol/L Potassium (3.5-5.1) mmol/L Chloride (98-107) mmol/L Carbon Dioxide (21-32) mmol/L Anion Gap (3-11) BUN (7-18) mg/dl Creatinine (0.6-1.4) mg/dl Est Cr Clr Drug Dosing ml/min Est GFR ( Amer) Est GFR (Non-Af Amer) BUN/Creatinine Ratio (10-20) Glucose (70-99) mg/dl Calcium (8.5-10.1) mg/dl Total Bilirubin (0.2-1) mg/dl AST (15-37) U/L ALT (12-78) U/L Alkaline Phosphatase (45-117) U/L Troponin I (0-0.045) ng/ml C-Reactive Protein (0-0.29) mg/dl Total Protein (6.4-8.2) gm/dl Albumin (3.4-5.0) gm/dl Globulin (2.5-4.0) gm/dl Albumin/Globulin Ratio (0.9-2) Lipase (73-393) U/L Procalcitonin (0-0.5) ng/ml 01/09/19 01/09/19 Range/Units 13:55 14:23 WBC (4.8-10.8) K/uL RBC (4.7-6.1) M/uL Hgb (14.0-18.0) g/dL Hct (42-52) % MCV (80-100) fL MCH (25-34) pg MCHC (32-36) g/dL RDW Std Deviation (36.4-46.3) fL RDW Coeff of James (11.5-14.5) % Plt Count (130-400) K/uL MPV (7.4-10.4) fL Immature Gran % (Auto) % Neut % (Auto) % Lymph % (Auto) % [place]ountain % (Auto) % Eos % (Auto) % Baso % (Auto) % Immature Gran # (Auto) (0.00-0.02) K/uL Neut # (Auto) (1.4-6.5) K/uL Lymph # (Auto) (1.2-3.4) K/uL Fountain # (Auto) (0.11-0.59) K/uL Eos # (Auto) (0-0.5) K/uL Baso # (Auto) (0-0.2) K/uL ESR (0-14) mm/hr PT (9.0-12.0) Seconds INR (0.9-1.1) APTT (21.0-31.0) Seconds PTT Ratio Sodium 138 (136-145) mmol/L Potassium 3.9 (3.5-5.1) mmol/L Chloride 101 (98-107) mmol/L Carbon Dioxide 30 (21-32) mmol/L Anion Gap 7.0 (3-11) BUN 18 (7-18) mg/dl Creatinine 0.91 (0.6-1.4) mg/dl Est Cr Clr Drug Dosing 88.1 ml/min Est GFR ( Amer) 97.9 Est GFR (Non-Af Amer) 84.5 BUN/Creatinine Ratio 20.2 H (10-20) Glucose 141 H (70-99) mg/dl Calcium 9.6 (8.5-10.1) mg/dl Total Bilirubin 0.3 (0.2-1) mg/dl AST 21 (15-37) U/L ALT 31 (12-78) U/L Alkaline Phosphatase 88 (45-117) U/L Troponin I 0.115 H* (0-0.045) ng/ml C-Reactive Protein 25.20 H (0-0.29) mg/dl Total Protein 7.4 (6.4-8.2) gm/dl Albumin 2.2 L (3.4-5.0) gm/dl Globulin 5.2 H (2.5-4.0) gm/dl Albumin/Globulin Ratio 0.4 L (0.9-2) Lipase 144 (73-393) U/L Procalcitonin 0.22 (0-0.5) ng/ml Imaging Data Radiologist's Impression: Radiology results as stated below per my review and the radiologist's interpretation: XR chest 1V portable HISTORY: 73 years-old Male swelling acute swelling with concern for edema COMPARISON: Chest radiograph 12/07/2018, CT abdomen and pelvis 12/08/2018. TECHNIQUE: Portable AP view of the chest FINDINGS: Cardiac silhouette is enlarged, unchanged. No overt pulmonary edema. Calcific granuloma of the right lateral midlung redemonstrated. Linear subsegmental left basilar opacities. Emphysema. Chronic blunting of the costophrenic angles with hyperinflation. No pneumothorax or large pleural effusion. Healed remote right- sided rib fractures. Degenerative changes of the shoulders and spine. IMPRESSION: 1. Cardiomegaly without overt pulmonary edema. 2. Left basilar opacities suggest atelectasis or scarring. 3. Emphysema. The above report was generated using voice recognition software. It may contain grammatical, syntax or spelling errors. Electronically signed by: Mauricio Andre M.D. 01/09/2019 1:44 PM ECG Data Attestation: I personally reviewed and interpreted this ECG as follows: Indication: other (lower extremity swelling) Rate (beats per minute): 80 Rhythm: normal sinus Findings: no ST depression, no ST elevation and no ectopy Comparison ECG Date: from (12/07/18) Change: no significant change Blood Pressure Blood Pressure Findings: Normal blood pressure Blood Pressure Disposition: did not require urgent referral MDM Narrative The patient is a 73-year-old male who presented to the emergency department for an evaluation of lower extreme the swelling. The patient has had lower extremely swelling for many months he was admitted to our facility and had a work-up but no DVT could be found and was felt to be due to cellulitis. The patient presents today with continued swelling. He also has inflammatory markers are elevated and an elevated troponin. The patient was started on IV antibiotic in the emergency department but I would be concerned this could represent an underlying infection otherwise and given his elevated troponin I do feel that further inpatient work-up would be indicated. I discussed his case with the on-call [facility] hospitalist group. They have agreed to evaluate the patient in the emergency department for further management disposition. The patient was agreeable to 2 evaluation by the hospitalist. He was feeling somewhat better on reevaluation. Impression & Plan Cellulitis, Bilateral edema of lower extremity, Anemia, Elevated troponin Discharge Plan Visit Data *Final* Discharge Date/Time: 01/09/19 19:00 Chief Complaint: Swelling/Edema to Extremity Stated Complaint: FOOT AND LEG SWELLED UP, FATIGUE ED Provider: Jhonathan Gibson Discharge Problem: Cellulitis, Bilateral edema of lower extremity, Anemia, Elevated troponin Patient Disposition: Admitted As Inpatient Discharge Instructions Interventions: ED Discharge Assessment Last Done: 01/09/19 19:00 Discharge Problem: Cellulitis Qualifiers: Site of cellulitis: unspecified site Qualified Code(s): L03.90 - Cellulitis, unspecified Anemia Qualifiers: Anemia type: unspecified type Qualified Code(s): D64.9 - Anemia, unspecified The scribe's documentation has been prepared under my direction and personally reviewed by me in its entirety. I confirm that the note above accurately reflects all work, treatment, procedures, and medical decision making performed by me.
--- NOTE | 2019-01-09 13:46 | XRay Report ---
XR chest 1V portable HISTORY: 73 years-old Male swelling acute swelling with concern for edema COMPARISON: Chest radiograph 12/07/2018, CT abdomen and pelvis 12/08/2018. TECHNIQUE: Portable AP view of the chest FINDINGS: Cardiac silhouette is enlarged, unchanged. No overt pulmonary edema. Calcific granuloma of the right lateral midlung redemonstrated. Linear subsegmental left basilar opacities. Emphysema. Chronic blunti ng of the costophrenic angles with hyperinflation. No pneumothorax or large pleural effusion. Healed remote right-sided rib fractures. Degenerative changes of the shoulders and spine. IMPRESSION: 1. Cardiomegaly without overt pulmonary edema. 2. Left basilar opacities suggest atelectasis or scarring. 3. Emphysema. The above report was generated using voice recognition software. It may contain grammatical, syntax o r spelling errors. Electronically signed by: Mauricio Andre M.D. 01/09/2019 1:44 PM
[2019-01-09 14:14] LABS: Basophils # (auto) 0.03 K/uL (0-0.2); Basophils % (auto) 0.2 %; Eosinophils % (auto) 0.7 %; Hematocrit (blood only) 31.8 % (42-52); Hemoglobin 10.5 g/dL (14.0-18.0); Immature Granulocytes # (auto) 0.14 K/uL (0.00-0.02); Immature Granulocytes % (auto) 0.9 %; Lymphocytes # (auto) 1.51 K/uL (1.2-3.4); Lymphocytes % (auto) 9.9 %; Mean Corpuscular Hemoglobin 29.3 pg (25-34); Mean Corpuscular Volume 88.8 fL (80-100); Monocytes # (auto) 1.89 K/uL (0.11-0.59); Monocytes % (auto) 12.4 %; Neutrophils # (auto) 11.57 K/uL (1.4-6.5); Neutrophils % (auto) 75.9 %; Platelet Count 373 K/uL (130-400); RDW Coefficient of Variation 14.6 % (11.5-14.5); Red Blood Count 3.58 M/uL (4.7-6.1); White Blood Count 15.24 K/uL (4.8-10.8)
[2019-01-09 14:22] LABS: INR 1.2 (0.9-1.1); Partial Thromboplastin Ratio 1.1; Partial Thromboplastin Time 28.8 Seconds (21.0-31.0); Prothrombin Time 12.1 Seconds (9.0-12.0)
[2019-01-09 14:27] LABS: Albumin Level 2.2 gm/dl (3.4-5.0); BUN Creatinine Ratio 20.2 (10-20); Calcium 9.6 mg/dl (8.5-10.1); Creatinine Clr Calc Pharmacy 88.1 ml/min; Est GFR (African American) 97.9; Est GFR (Non-African American) 84.5; Potassium 3.9 mmol/L (3.5-5.1)
[2019-01-09 14:41] LABS: Albumin Globulin Ratio 0.4 (0.9-2); Bilirubin,Total 0.3 mg/dl (0.2-1); C Reactive Protein 25.2 mg/dl (0-0.29); Globulin 5.2 gm/dl (2.5-4.0); Total Protein 7.4 gm/dl (6.4-8.2); Troponin I 0.115 ng/ml (0-0.045)
--- NOTE | 2019-01-09 16:18 | Ultrasound Report ---
LEFT LOWER EXTREMITY VENOUS DOPPLER CLINICAL HISTORY: Left lower extremity swelling. COMPARISON STUDY: Left lower extremity venous Doppler ultrasound December 28, 2018. TECHNIQUE: Sonography of the deep venous system of the left lower extremity was performed. Compressi on and augmentation were evaluated. FINDINGS: The left common femoral, superficial femoral and popliteal veins were compressible. Augmen tation was normal. Flow was shown within the deep calf vessels. A small complex left popliteal cyst i s again noted. IMPRESSION: 1. No evidence of deep venous thrombus within the left lower extremity. 2. Small complex left popliteal cyst. Electronically signed by: Giovanny Milian M.D. 01/09/2019 4:17 PM
[2019-01-09] MEDS ORDERED: cefTRIAXone SODIUM 1,000 MG/50 ML BAG IV STA (17:11)
--- NOTE | 2019-01-09 18:32 | History & Physical Report ---
Date of Service January 09, 2019 Assessment & Plan (1) Ankle pain, left: ongoing for about one month increased pain the past few days fever/chills, poor appetite for a few days extreme pain on palpation, limited range of motion will get CT ankle and foot on left with contrast pre-medicate with Solu Medrol 60mg and Benadryl 25mg IV Daptomycin IV, was treated with Rocephin and cephalexin one month ago could consider gouty arthritis and cellulitis as differential, check uric acid in the AM consult Dr. Garrett for his impression and recommendations (2) Left leg swelling: see above doppler negative for DVT (3) Cellulitis: erythema and tenderness, swelling over left ankle and foot will treat with Daptomycin IV WBC is 15k (4) Elevated troponin I level: no chest pain, no EKG changes incidental finding of troponin of 0.1, has been <0.015 in the past will repeat troponin x 2 more sets, q8 if troponin negative or stable would not perform further work up since he is here for left foot pain likely transfer off tele tomorrow (5) Lung cancer: non small cell follows with Dr. 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 Anand (10) Hypertension: BP stable, no medications (11) Chronic pain syndrome: uses Methadone chronically for cancer related pain History of Present Illness Chief Complaint: "My left foot hurts" Primary Care Provider: Aylin Broderick PA-C 73 yo male with history of non-small cell lung CA, bladder CA with pelvic mets, HTN, chronic pain, COPD and chronic hypoxia on 2-4L presents with pain in left foot as well as swelling and redness. He was hospitalized one month ago for a similar complaint but at that time the pain in swelling was more focused in his left knee. He was treated for presumed cellulitis at that time, treated with Rocephin, d/c home on Keflex. He completed the recommended course of antibiotics but says that his leg never felt that good. Continued to have pain and swelling. Two or three days ago he noticed the pain and swelling in left foot was more intense. Also with pain in left ankle. He says that the worst pain in in the ankle and the top of the foot. Nearly impossible to walk, put any weight on the joint. He has not found anything that helps the pain. No fever but he has experienced chills. His appetite has been poor for three days, no nausea or vomiting or diarrhea. He denies chest pain, cough. He always has some shortness of breath with COPD, wears 2L continuous and 4L on exertion. He denies any injuries to the foot or ankle. His feet are dry and cracked, this is chronic issue. In the ED his vitals are stable, found to have WBC of 15k, ESR is > 90 and CRP > 20. Normal BMP. Doppler left leg negative for DVT. He was given a dose of Rocephin and admission requested for the left foot and ankle pain. Allergies Allergy/AdvReac Type Severity Reaction Status Date / Time Bactrim Allergy Severe TONGUE Verified 12/02/17 08:11 SWELLS/FONG mupirocin Allergy Severe ANAPHYLAXIS Verified 01/09/19 16:05 sulfamethoxazole Allergy Severe TONGUE Verified 01/09/19 16:05 SWELLS/FONG trimethoprim Allergy Severe TONGUE Verified 01/09/19 16:05 SWELLS/FONG Iodinated Contrast- Oral and Allergy Intermediate HIVES/ITCHI Verified 01/09/19 16:05 IV Dye NG lisinopril Allergy Intermediate Tongue Verified 01/09/19 16:05 Swelling mustard Allergy Intermediate Hives, Verified 01/09/19 16:05 SOB, Itchy aspirin Allergy Mild ITCHY Verified 01/09/19 16:05 adhesive AdvReac Intermediate Tape - Rash Verified 01/09/19 16:05 Home Medications Home Medications Medication Instructions Recorded Confirmed Type Spiriva with HandiHaler 1 cap INHALATION QAM 03/30/18 01/09/19 History Symbicort 2 puff INHALATION BID 03/30/18 01/09/19 History albuterol sulfate 2 puff INHALATION Q4H PRN 03/30/18 01/09/19 History ascorbic acid (vitamin C) [Vitamin 1 g PO QAM 03/30/18 01/09/19 History C] atorvastatin 80 mg PO PM 03/30/18 01/09/19 History cyanocobalamin (vitamin B-12) 100 mcg PO QAM 03/30/18 01/09/19 History [Vitamin B-12] docusate sodium 100 mg PO BID 03/30/18 01/09/19 History finasteride 5 mg PO QAM 03/30/18 01/09/19 History methadone 10 mg PO QID 03/30/18 01/09/19 History pyridoxine (vitamin B6) [Vitamin 100 mg PO QAM 03/30/18 01/09/19 History B-6] terazosin 2 mg PO QPM 03/30/18 01/09/19 History cholecalciferol (vitamin D3) 400 400 unit PO DAILY cap 12/01/18 01/09/19 History unit capsule magnesium oxide 400 mg PO BID 12/03/18 01/09/19 History amlodipine [Norvasc] 5 mg PO HS 12/07/18 01/09/19 History sennosides 17.2 mg PO BID PRN 12/07/18 01/09/19 History albuterol sulfate 1.25 mg INHALATION QID 12/28/18 01/09/19 History lidocaine [Lidoderm] 1 patch TOP DAILY PRN #15 ea 12/28/18 01/09/19 Rx cetirizine 5 mg PO DAILY 01/09/19 01/09/19 History Past Med/Surg History Medical History Chronic respiratory failure (Chronic) COPD (chronic obstructive pulmonary disease) (Chronic) Opioid dependence (Chronic) Bladder cancer metastasized to pelvic region (Acute) BPH (benign prostatic hyperplasia) (Chronic) COPD (chronic obstructive pulmonary disease) (Chronic) Elevated PSA (Chronic) H/O malignant neoplasm of skin (Chronic) Hyperlipidemia (Chronic) Non-small cell lung cancer (Chronic) CURRENTLY BEING TREATED W/ CHEMOTHERAPY Stroke (Chronic) 2009 - NO PERIPHERAL VISION RT SIDE - NO NEUROLOGIST Urothelial carcinoma (Chronic) H/O hematuria (Resolved) Hypertension (Resolved) Acute leg pain (Inactive) Left leg swelling (Inactive) Bladder cancer CURRENTLY BEING TREATED W/ CHEMOTHERAPY Chronic back pain Constipation Inguinal hernia BL Osteoarthritis Umbilical hernia Surgical History H/O prostate biopsy (Acute) H/O Moh's micrographic surgery for skin cancer (Resolved) H/O hand surgery (Resolved) H/O prostatectomy History of bronchoscopy W/ BIOPSY History of colonoscopy History of surgery TRANSURETHRAL RESECTION OF BLADDER TUMOR X 3 History of surgery PLACEMENT OF MEDIPORT W/ REMOVAL History of ureter stent W/ REMOVAL Family History Father , 69yo [place], DM, arthritis, HTN Diabetes Cardiac disorder Hypertension Mother , age 84 from stroke Cardiac disorder Hypertension Brother Diabetes Cardiac disorder Hypertension Cancer, face Sister History of kidney cancer Hypertension Unknown Lung cancer Leukemia Basal cell carcinoma Social History Preferred Language: Uzbek Communication Ability: Effective Visual Impairment: No Limitations Hearing Ability: Associate Data Scientist Required: Yes Beliefs That Will Affect Care: None marital status: marital status details: 1 son and 3 daughters Current Living Situation: Alone Current Living Situation Comment: lives in [place] current occupational status: retired current occupation: [employer] Other Information That Helps Us Care for You: No Feels Safe at Home: Yes Smoking Status: Former smoker Tobacco Type: cigarettes ; Cigarettes Per Day: 1 ppd x 60 years; quit 1 month ago ; Second Hand Exposure: No ; Hx Alcohol Use: No Hx Substance Use: No caffeine: Yes (3 cups/day) during the past year weight has: decreased > 10 lbs Review of Systems Review of Systems: All systems reviewed & are unremarkable except as noted in HPI & below Constitutional: + chills, + fatigue, + weakness and + anorexia; no fever and n o sweats Respiratory: + dyspnea on exertion (chronic); no cough, no dyspnea and no wheezing Cardiovascular: + edema (left leg); no chest pain, no palpitations and no syncope Gastrointestinal: no abdominal pain, no nausea, no vomiting, no constipation and no diarrhea/loose stools Genitourinary: no dysuria and no difficulty urinating Musculoskeletal: + joint pain (intense pain in left ankle, left foot), + swelling (left ankle and foot) and + limited range of motion (left ankle joint); no back pain Integumentary: + erythema (left ankle and foot) Physical Exam Constitutional: WD/WN, vitals as above Eyes: PERRL, conjunctivae normal, anicteric sclerae ENMT: external ear and nose normal, oropharynx normal Neck: trachea midline, no thyromegaly Respiratory: normal respiratory effort, lungs clear to auscultation Auscultation: + diminished lung sounds (bilaterally) Cardiovascular: RRR, no murmur, no edema Gastrointestinal (Abdomen): normal bowel sounds, soft, nontender, no hepatosplenomegaly Musculoskeletal: Head/Neck/Chest: normocephalic and head atraumatic Extremities: + limited ROM of extremities (left ankle flexion/extension limited) Gait: + antalgic gait Ankle: + ankle abnormal to inspection (swollen, left), + effusion and + skin erythema Skin: + erythema (left foot and ankle) Neurologic: patellar DTR's 2+ bilat, sensation intact and PERRL, EOMI, accommodation nl, no face palsy, no dysarthria Psychiatric: A+Ox3, euthymic affect Lymphatic: no cervical or axillary lymphadenopathy Results & Data Vital Signs (Past 12 Hours) Vital Signs Temp Pulse Pulse Resp BP BP Pulse Ox 01/09/19 17:30 86 22 128/67 81 L 01/09/19 17:08 90 29 H 134/73 97 01/09/19 17:00 83 22 134/73 96 01/09/19 16:40 80 20 97 01/09/19 16:38 83 82 22 110/64 110/64 97 01/09/19 15:00 78 18 01/09/19 14:30 79 17 01/09/19 14:00 81 19 01/09/19 13:53 85 20 01/09/19 12:39 36.9 C 91 H 20 107/54 L 97 Laboratory Results Laboratory Results - last 24 hr 01/09/19 01/09/19 01/09/19 13:55 13:55 13:55 WBC 15.24 H RBC 3.58 L Hgb 10.5 L Hct 31.8 L MCV 88.8 MCH 29.3 MCHC 33.0 RDW Std Deviation 48.0 H RDW Coeff of James 14.6 H Plt Count 373 MPV 9.0 Immature Gran % (Auto) 0.9 Neut % (Auto) 75.9 Lymph % (Auto) 9.9 Burnet % (Auto) 12.4 Eos % (Auto) 0.7 Baso % (Auto) 0.2 Immature Gran # (Auto) 0.14 H Neut # (Auto) 11.57 H Lymph # (Auto) 1.51 Burnet # (Auto) 1.89 H Eos # (Auto) 0.10 Baso # (Auto) 0.03 ESR > 90 H PT 12.1 H INR 1.2 H APTT 28.8 PTT Ratio 1.1 Sodium Potassium Chloride Carbon Dioxide Anion Gap BUN Creatinine Est Cr Clr Drug Dosing Est GFR ( Amer) Est GFR (Non-Af Amer) BUN/Creatinine Ratio Glucose Calcium Total Bilirubin AST ALT Alkaline Phosphatase Troponin I C-Reactive Protein Total Protein Albumin Globulin Albumin/Globulin Ratio Lipase Procalcitonin 01/09/19 01/09/19 13:55 14:23 WBC RBC Hgb Hct MCV MCH MCHC RDW Std Deviation RDW Coeff of James Plt Count MPV Immature Gran % (Auto) Neut % (Auto) Lymph % (Auto) Burnet % (Auto) Eos % (Auto) Baso % (Auto) Immature Gran # (Auto) Neut # (Auto) Lymph # (Auto) Burnet # (Auto) Eos # (Auto) Baso # (Auto) ESR PT INR APTT PTT Ratio Sodium 138 Potassium 3.9 Chloride 101 Carbon Dioxide 30 Anion Gap 7.0 BUN 18 Creatinine 0.91 Est Cr Clr Drug Dosing 88.1 Est GFR ( Amer) 97.9 Est GFR (Non-Af Amer) 84.5 BUN/Creatinine Ratio 20.2 H Glucose 141 H Calcium 9.6 Total Bilirubin 0.3 AST 21 ALT 31 Alkaline Phosphatase 88 Troponin I 0.115 H* C-Reactive Protein 25.20 H Total Protein 7.4 Albumin 2.2 L Globulin 5.2 H Albumin/Globulin Ratio 0.4 L Lipase 144 Procalcitonin 0.22 Diagnostic Findings LEFT LOWER EXTREMITY VENOUS DOPPLER IMPRESSION: 1. No evidence of deep venous thrombus within the left lower extremity. 2. Small complex left popliteal cyst. XR chest 1V portable IMPRESSION: 1. Cardiomegaly without overt pulmonary edema. 2. Left basilar opacities suggest atelectasis or scarring. 3. Emphysema. Code Status & VTE Plan VTE Prophylaxis Plan VTE Prophylaxis will be ordered: Yes PG Care Time/CCT Total # of Minutes Spent Total Time Spent with Patient: Total time spent is greater than 50% in coordination of care (as documented) at patient's floor/unit and/or counseling patient: (1) Ankle pain, left Chronicity: chronic Qualified Code(s): M25.572 - Pain in left ankle and joints of left foot; G89.29 - Other chronic pain (2) Cellulitis Site of cellulitis: unspecified site Qualified Code(s): L03.90 - Cellulitis, unspecified
[2019-01-09] MEDS ORDERED: ONDANSETRON INJ 2 MG/ML 2 ML VIAL IV PRN (20:14)
[2019-01-09] MEDS ORDERED: HYDROmorphone INJ 1 MG/ML SYRINGE IV PRN (20:14)
[2019-01-09] MEDS ORDERED: methylPREDNISolone 125 MG/2 ML VIAL IV ONE (20:14)
[2019-01-09] MEDS ORDERED: ACETAMINOPHEN 325 MG TAB PO PRN (20:14)
[2019-01-09] MEDS ORDERED: DiphenhydrAMINE HCL 50 MG/ML VIAL IV ONE (20:14)
[2019-01-09] MEDS ORDERED: ALBUTEROL 0.083% NEBU SOLN 3 ML VIAL INH PRN (21:00)
[2019-01-09] MEDS ORDERED: methylPREDNISolone 60 MG in SYRINGE 0 ML IV SCH (21:15)
[2019-01-09] MEDS: SODIUM CHLORIDE 0.9% 1000ML 1,000 ML IV SCH (22:00)
[2019-01-09] MEDS: DAPTOmycin 450 MG in SYRINGE 0 ML IV SCH (22:02)
[2019-01-09] MEDS: DOCUSATE SODIUM 100 MG CAP PO SCH (22:08)
[2019-01-09] MEDS: MAGNESIUM OXIDE 400 MG TAB PO SCH (22:08)
[2019-01-09] MEDS: AMLODIPINE BESYLATE 5 MG TAB PO SCH (22:09)
[2019-01-09] MEDS: BUDESONIDE/FORMOTEROL FUMARATE 160/4.5 60 PUFFS/INHALER INH SCH (22:09)
[2019-01-09] MEDS: TERAZOSIN HCL 1 MG CAP PO SCH (22:11)
[2019-01-09] MEDS: ATORVASTATIN 40 MG TAB PO SCH (22:11)
[2019-01-09] MEDS: METHADONE HCL 10 MG TAB PO SCH (22:14)
[2019-01-09] MEDS: HEPARIN SOD 5,000 UNIT/0.5 ML VIAL SQ SCH (22:15)
[2019-01-09] MEDS ORDERED: IOVERSOL 100ml IV PRN (22:36)
--- NOTE | 2019-01-09 23:06 | CT Scan Report ---
CT ankle LT w con CLINICAL HISTORY: swelling and pain, ESR > 90 COMPARISON STUDY: Left ankle radiographs December 03, 2018. TECHNIQUE: Axial images of the left ankle were obtained following intravenous injection of 89 cc Opti ray 320 IV. Sagittal and coronal reconstructions were viewed. Automated exposure control was utilized for the study. A dose lowering technique was utilized adhering to the principles of ALARA. FINDINGS: Extensive subcutaneous edema of the left ankle is noted. No soft tissue gas. There is no fl uid collection is suggest an abscess. No acute fracture is present. Alignment of the tibiotalar and s ubtalar joints is anatomic. Talar dome is intact. There is no bony destruction to suggest osteomyelit is by CT. IMPRESSION: Extensive subcutaneous edema of the left ankle which may reflect cellulitis. No abscess. No CT eviden ce for osteomyelitis. Electronically signed by: Giovanny Milian M.D. 01/09/2019 11:04 PM
--- NOTE | 2019-01-09 23:08 | CT Scan Report ---
CT foot LT w con CLINICAL HISTORY: Pain and swelling x 1 month, ESR > 90 COMPARISON STUDY: Left ankle radiographs December 03, 2018. TECHNIQUE: Axial images of the left foot were obtained following intravenous injection of 89 cc of Op tiray 320 IV. Sagittal and coronal reconstructions were viewed. Automated exposure control was utiliz ed for the study. A dose lowering technique was utilized adhering to the principles of ALARA. FINDINGS: There is extensive for subtle subcutaneous edema of the left foot. There is no soft tissue gas. No rim-enhancing fluid collection is identified to suggest an abscess. Tarsometatarsal joints ar e intact. No fracture is noted. There is no evidence for osteomyelitis within the left foot. There is mild posterior and plantar calcaneal spurring. IMPRESSION: Extensive edema of the left foot which may reflect cellulitis. No abscess. No CT evidence for osteomyelitis within the left foot. Electronically signed by: Giovanny Milian M.D. 01/09/2019 11:07 PM
[2019-01-10] MEDS: HEPARIN SOD 5,000 UNIT/0.5 ML VIAL SQ SCH ×3 (05:19→21:43)
[2019-01-10] MEDS: METHADONE HCL 10 MG TAB PO SCH ×4 (05:19→21:51)
[2019-01-10 05:52] LABS: Basophils # (auto) 0.01 K/uL (0-0.2); Basophils % (auto) 0.1 %; Hematocrit (blood only) 33.4 % (42-52); Hemoglobin 10.4 g/dL (14.0-18.0); Immature Granulocytes # (auto) 0.06 K/uL (0.00-0.02); Immature Granulocytes % (auto) 0.5 %; Lymphocytes % (auto) 8.4 %; Mean Corpuscular Hemoglobin 27.9 pg (25-34); Mean Corpuscular Hgb Conc 31.1 g/dL (32-36); Mean Corpuscular Volume 89.5 fL (80-100); Monocytes # (auto) 0.27 K/uL (0.11-0.59); Monocytes % (auto) 2.3 %; Neutrophils # (auto) 10.51 K/uL (1.4-6.5); Neutrophils % (auto) 88.7 %; Platelet Count 378 K/uL (130-400); RDW Coefficient of Variation 14.7 % (11.5-14.5); RDW Standard Deviation 48.5 fL (36.4-46.3); Red Blood Count 3.73 M/uL (4.7-6.1); White Blood Count 11.85 K/uL (4.8-10.8)
[2019-01-10 06:20] LABS: BUN Creatinine Ratio 25.7 (10-20); Calcium 9.4 mg/dl (8.5-10.1); Creatinine Clr Calc Pharmacy 96.6 ml/min; Est GFR (African American) 102.6; Est GFR (Non-African American) 88.5; Potassium 4.2 mmol/L (3.5-5.1)
[2019-01-10 06:28] LABS: Troponin I 0.122 ng/ml (0-0.045); Uric Acid 5.2 mg/dl (2.6-7.2)
[2019-01-10] MEDS: FINASTERIDE 5 MG TAB PO SCH (08:04)
[2019-01-10] MEDS: MAGNESIUM OXIDE 400 MG TAB PO SCH ×2 (08:04→21:51)
[2019-01-10] MEDS: DOCUSATE SODIUM 100 MG CAP PO SCH ×2 (08:04→21:51)
[2019-01-10] MEDS: TIOTROPIUM BROMIDE 5 PUFF/90 MCG INH INH SCH (08:05)
[2019-01-10] MEDS: BUDESONIDE/FORMOTEROL FUMARATE 160/4.5 60 PUFFS/INHALER INH SCH ×2 (08:06→21:42)
[2019-01-10] MEDS: PYRIDOXINE HCL 50 MG TAB PO SCH (08:06)
[2019-01-10] MEDS: CETIRIZINE HCL 10 MG TABLET PO SCH (08:06)
[2019-01-10] MEDS: SODIUM CHLORIDE 0.9% 1000ML 1,000 ML IV SCH (08:08)
[2019-01-10 09:05] LABS: Estimated Average Glucose 160 mg/dl; Hemoglobin A1C 7.2 % (4.5-5.6)
--- NOTE | 2019-01-10 10:03 | Orthopedic Consultation ---
Date of Consultation January 10, 2019 Assessment & Plan (1) Cellulitis: Cellulitis left lower extremity/foot/ankle Patient states he feels significantly better today after starting antibiotics last night. White count coming down. Uric acid wnl. CT results showing no abscesses or fluid collections; no evidence of osteomyelitis, etc., will continue to watch for now. Ankle film done end of November wnl. Continue current IV antibiotics. Elevation of the left lower extremity on 1 or 2 pillows when at rest. Consider partial weightbearing at this time and increase to full weightbearing as pain resolves. Grabiel Garrett DO: I reviewed the assessment documented by Fer Shaw PA-C. I agree with his assessment and I agree with his physical exam findings. Recommend continued IV antibiotics and limitation weightbearing left lower extremity. Compression hose bilateral lower extremities would be helpful. If symptoms persist or localize within the foot and ankle I would recommend an MRI of the ankle. Should his left knee become more of an issue would also recommend an MRI of the knee. Thank you for the opportunity to consult in the care of this patient. Grabiel Garrett DO History of Present Illness Reason for Consultation: Painful left foot and ankle Attending Physician: Sherif Lawler History of Present Illness Patient is a 73-year-old white male with history of left ankle and foot pain that was severe over the last 2 to 3 days prior to admission. Patient states that he had been diagnosed with a cellulitis of his left knee approximately 1 month prior and was treated with IV antibiotics and then p.o. antibiotics. He states that the pain in his left knee has never really gone away but is de finitely not as bad as it was prior. He complains of general body aches and pains over the last month. Several days prior to admission he began noticing increased swelling and erythema of his left foot. He got to the point where he was unable to bear weight on the left foot and ankle because of the pain. He states that he was having difficulty getting to the bathroom and felt he needed to be seen. He came into the emergency room and was admitted with cellulitis of his left foot and ankle. Currently, the patient states that he feels much better today after they started him on antibiotics. He no longer has the general body aches he has been having and that his foot and ankle do feel much better today although still somewhat uncomfortable. Allergies Allergy/AdvReac Type Severity Reaction Status Date / Time Bactrim Allergy Severe TONGUE Verified 12/02/17 08:11 SWELLS/FONG mupirocin Allergy Severe ANAPHYLAXIS Verified 01/09/19 16:05 sulfamethoxazole Allergy Severe TONGUE Verified 01/09/19 16:05 SWELLS/FONG trimethoprim Allergy Severe TONGUE Verified 01/09/19 16:05 SWELLS/FONG Iodinated Contrast- Oral and Allergy Intermediate HIVES/ITCHI Verified 01/09/19 16:05 IV Dye NG lisinopril Allergy Intermediate Tongue Verified 01/09/19 16:05 Swelling mustard Allergy Intermediate Hives, Verified 01/09/19 16:05 SOB, Itchy aspirin Allergy Mild ITCHY Verified 01/09/19 16:05 adhesive AdvReac Intermediate Tape - Rash Verified 01/09/19 16:05 Home Medications Home Medications Medication Instructions Recorded Confirmed Type Spiriva with HandiHaler 1 cap INHALATION QAM 03/30/18 01/09/19 History Symbicort 2 puff INHALATION BID 03/30/18 01/09/19 History albuterol sulfate 2 puff INHALATION Q4H PRN 03/30/18 01/09/19 History ascorbic acid (vitamin C) [Vitamin 1 g PO QAM 03/30/18 01/09/19 History C] atorvastatin 80 mg PO PM 03/30/18 01/09/19 History cyanocobalamin (vitamin B-12) 100 mcg PO QAM 03/30/18 01/09/19 History [Vitamin B-12] docusate sodium 100 mg PO BID 03/30/18 01/09/19 History finasteride 5 mg PO QAM 03/30/18 01/09/19 History methadone 10 mg PO QID 03/30/18 01/09/19 History pyridoxine (vitamin B6) [Vitamin 100 mg PO QAM 03/30/18 01/09/19 History B-6] terazosin 2 mg PO QPM 03/30/18 01/09/19 History cholecalciferol (vitamin D3) 400 400 unit PO DAILY cap 12/01/18 01/09/19 History unit capsule magnesium oxide 400 mg PO BID 12/03/18 01/09/19 History amlodipine [Norvasc] 5 mg PO HS 12/07/18 01/09/19 History sennosides 17.2 mg PO BID PRN 12/07/18 01/09/19 History albuterol sulfate 1.25 mg INHALATION QID 12/28/18 01/09/19 History lidocaine [Lidoderm] 1 patch TOP DAILY PRN #15 ea 12/28/18 01/09/19 Rx cetirizine 5 mg PO DAILY 01/09/19 01/09/19 History Patient History Medical History Chronic respiratory failure (Chronic) COPD (chronic obstructive pulmonary disease) (Chronic) Opioid dependence (Chronic) Bladder cancer metastasized to pelvic region (Acute) BPH (benign prostatic hyperplasia) (Chronic) COPD (chronic obstructive pulmonary disease) (Chronic) Elevated PSA (Chronic) H/O malignant neoplasm of skin (Chronic) Hyperlipidemia (Chronic) Non-small cell lung cancer (Chronic) CURRENTLY BEING TREATED W/ CHEMOTHERAPY Stroke (Chronic) 2009 - NO PERIPHERAL VISION RT SIDE - NO NEUROLOGIST Urothelial carcinoma (Chronic) H/O hematuria (Resolved) Hypertension (Resolved) Acute leg pain (Inactive) Left leg swelling (Inactive) Bladder cancer CURRENTLY BEING TREATED W/ CHEMOTHERAPY Chronic back pain Constipation Inguinal hernia BL Osteoarthritis Umbilical hernia Surgical History H/O prostate biopsy (Acute) H/O Moh's micrographic surgery for skin cancer (Resolved) H/O hand surgery (Resolved) H/O prostatectomy History of bronchoscopy W/ BIOPSY History of colonoscopy History of surgery TRANSURETHRAL RESECTION OF BLADDER TUMOR X 3 History of surgery PLACEMENT OF MEDIPORT W/ REMOVAL History of ureter stent W/ REMOVAL Family History Father , 69yo [place], DM, arthritis, HTN Diabetes Cardiac disorder Hypertension Mother , age 84 from stroke Cardiac disorder Hypertension Brother Diabetes Cardiac disorder Hypertension Cancer, face Sister History of kidney cancer Hypertension Unknown Lung cancer Leukemia Basal cell carcinoma Social History Preferred Language: Cuban Communication Ability: Effective Visual Impairment: No Limitations Hearing Ability: 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 Supervisor Required: Yes Beliefs That Will Affect Care: None marital status: marital status details: 1 son and 3 daughters Current Living Situation: Alone Current Living Situation Comment: lives in [place] 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 He appears comfortable. He then gets back into bed supine without difficulty. The sock on the left foot was removed revealing a moderately swollen left foot and ankle. He has no overt erythema noted at this time. He states that when he came in last night, he had moderate erythema of the foot that was starting to go up to the ankle. He states that this is much better today. He is able to go through some gentle range of motion of the left ankle with mild discomfort. Palpation of the left ankle proves to elicit some pain over the medial lateral malleoli. Palpation of the toes and dorsum of the foot is minimally painful. He states that if I had tried to palpate his foot last night, that it would have been excruciating. He has some general tenderness that goes up the left lower extremity to the knee. He appears to have a mild effusion of the left knee compared to the right. The left knee is not overtly warm compared to the right. Range of motion is within normal limits. Overall he does have some increased edema of the left lower extremity below the knee compared to the right lower extremity. I cannot appreciate a dorsalis pedis pulse at this time due to swelling however capillary refill is less than 2 seconds. Sensation is intact. Results & Data Vital Signs (Past 12 Hours) Vital Signs Temp Pulse Pulse Resp BP BP Pulse Ox 01/10/19 07:18 36.4 C L 77 19 116/70 95 01/10/19 05:50 94 H 01/10/19 04:00 36.4 C L 74 19 124/71 90 01/09/19 22:37 37.1 C 98 H 20 155/76 H 91 Laboratory Results Laboratory Results WBC 11.85 K/uL (4.8-10.8) H 01/10/19 05:23 RBC 3.73 M/uL (4.7-6.1) L 01/10/19 05:23 Hgb 10.4 g/dL (14.0-18.0) L 01/10/19 05:23 Hct 33.4 % (42-52) L 01/10/19 05:23 MCV 89.5 fL (80-100) 01/10/19 05:23 MCH 27.9 pg (25-34) 01/10/19 05:23 MCHC 31.1 g/dL (32-36) L 01/10/19 05:23 RDW Std Deviation 48.5 fL (36.4-46.3) H 01/10/19 05:23 RDW Coeff of James 14.7 % (11.5-14.5) H 01/10/19 05:23 Plt Count 378 K/uL (130-400) 01/10/19 05:23 MPV 9.0 fL (7.4-10.4) 01/10/19 05:23 Immature Gran % (Auto) 0.5 % 01/10/19 05:23 Neut % (Auto) 88.7 % 01/10/19 05:23 Lymph % (Auto) 8.4 % 01/10/19 05:23 Roosevelt % (Auto) 2.3 % 01/10/19 05:23 Eos % (Auto) 0.0 % 01/10/19 05:23 Baso % (Auto) 0.1 % 01/10/19 05:23 Immature Gran # (Auto) 0.06 K/uL (0.00-0.02) H 01/10/19 05:23 Neut # (Auto) 10.51 K/uL (1.4-6.5) H 01/10/19 05:23 Lymph # (Auto) 1.00 K/uL (1.2-3.4) L 01/10/19 05:23 Roosevelt # (Auto) 0.27 K/uL (0.11-0.59) 01/10/19 05:23 Eos # (Auto) 0.00 K/uL (0-0.5) 01/10/19 05:23 Baso # (Auto) 0.01 K/uL (0-0.2) 01/10/19 05:23 ESR > 90 mm/hr (0-14) H 01/09/19 13:55 PT 12.1 Seconds (9.0-12.0) H 01/09/19 13:55 INR 1.2 (0.9-1.1) H 01/09/19 13:55 APTT 28.8 Seconds (21.0-31.0) 01/09/19 13:55 PTT Ratio 1.1 01/09/19 13:55 Sodium 139 mmol/L (136-145) 01/10/19 05:23 Potassium 4.2 mmol/L (3.5-5.1) 01/10/19 05:23 Chloride 103 mmol/L (98-107) 01/10/19 05:23 Carbon Dioxide 28 mmol/L (21-32) 01/10/19 05:23 Anion Gap 7.0 (3-11) 01/10/19 05:23 BUN 21 mg/dl (7-18) H 01/10/19 05:23 Creatinine 0.83 mg/dl (0.6-1.4) 01/10/19 05:23 Est Cr Clr Drug Dosing 96.6 ml/min 01/10/19 05:23 Est GFR ( Amer) 102.6 01/10/19 05:23 Est GFR (Non-Af Amer) 88.5 01/10/19 05:23 BUN/Creatinine Ratio 25.7 (10-20) H 01/10/19 05:23 Glucose 171 mg/dl (70-99) H 01/10/19 05:23 Estimat Average Glucose 160 mg/dl 01/10/19 05:23 Hemoglobin A1c 7.2 % (4.5-5.6) H 01/10/19 05:23 Uric Acid 5.2 mg/dl (2.6-7.2) 01/10/19 05:23 Calcium 9.4 mg/dl (8.5-10.1) 01/10/19 05:23 Total Bilirubin 0.3 mg/dl (0.2-1) 01/09/19 13:55 AST 21 U/L (15-37) 01/09/19 13:55 ALT 31 U/L (12-78) 01/09/19 13:55 Alkaline Phosphatase 88 U/L (45-117) 01/09/19 13:55 Troponin I 0.122 ng/ml (0-0.045) H* 01/10/19 05:23 C-Reactive Protein 25.20 mg/dl (0-0.29) H 01/09/19 13:55 Total Protein 7.4 gm/dl (6.4-8.2) 01/09/19 13:55 Albumin 2.2 gm/dl (3.4-5.0) L 01/09/19 13:55 Globulin 5.2 gm/dl (2.5-4.0) H 01/09/19 13:55 Albumin/Globulin Ratio 0.4 (0.9-2) L 01/09/19 13:55 Lipase 144 U/L (73-393) 01/09/19 13:55 Procalcitonin 0.22 ng/ml (0-0.5) 01/09/19 14:23 Diagnostic Findings T ankle LT w con CLINICAL HISTORY: swelling and pain, ESR > 90 COMPARISON STUDY: Left ankle radiographs December 03, 2018. TECHNIQUE: Axial images of the left ankle were obtained following intravenous injection of 89 cc Optiray 320 IV. Sagittal and coronal reconstructions were viewed. Automated exposure control was utilized for the study. A dose lowering technique was utilized adhering to the principles of ALARA. FINDINGS: Extensive subcutaneous edema of the left ankle is noted. No soft tissue gas. There is no fluid collection is suggest an abscess. No acute fracture is present. Alignment of the tibiotalar and subtalar joints is anatomic. Talar dome is intact. There is no bony destruction to suggest osteomyelitis by CT. IMPRESSION: Extensive subcutaneous edema of the left ankle which may reflect cellulitis. No abscess. No CT evidence for osteomyelitis. Electronically signed by: Giovanny Milian M.D. 01/09/2019 11:[address] foot LT w con CLINICAL HISTORY: Pain and swelling x 1 month, ESR > 90 COMPARISON STUDY: Left ankle radiographs December 03, 2018. TECHNIQUE: Axial images of the left foot were obtained following intravenous injection of 89 cc of Optiray 320 IV. Sagittal and coronal reconstructions were viewed. Automated exposure control was utilized for the study. A dose lowering technique was utilized adhering to the principles of ALARA. FINDINGS: There is extensive for subtle subcutaneous edema of the left foot. There is no soft tissue gas. No rim-enhancing fluid collection is identified to suggest an abscess. Tarsometatarsal joints are intact. No fracture is noted. There is no evidence for osteomyelitis within the left foot. There is mild posterior and plantar calcaneal spurring. IMPRESSION: Extensive edema of the left foot which may reflect cellulitis. No abscess. No CT evidence for osteomyelitis within the left foot. Electronically signed by: Giovanny Milian M.D. 01/09/2019 11:07 PM LEFT LOWER EXTREMITY VENOUS DOPPLER CLINICAL HISTORY: Left lower extremity swelling. COMPARISON STUDY: Left lower extremity venous Doppler ultrasound December 28, 2018. TECHNIQUE: Sonography of the deep venous system of the left lower extremity was performed. Compression and augmentation were evaluated. FINDINGS: The left common femoral, superficial femoral and popliteal veins were compressible. Augmentation was normal. Flow was shown within the deep calf vessels. A small complex left popliteal cyst is again noted. IMPRESSION: 1. No evidence of deep venous thrombus within the left lower extremity. 2. Small complex left popliteal cyst. Electronically signed by: Giovanny Milian M.D. 01/09/2019 4:17 PM (1) Cellulitis Site of cellulitis: unspecified site Qualified Code(s): L03.90 - Cellulitis, unspecified
[2019-01-10] MEDS: DICLOFENAC SOD 1% GEL 100 GM TUBE EXT SCH ×2 (17:51→21:42)
--- NOTE | 2019-01-10 19:25 | Hospitalist Progress Note ---
Date of Service January 10, 2019 Assessment & Plan (1) Cellulitis: left leg/foot - improving. continue IV daptomycin; this abx is restricted and requires ID consult; will request. CT ankle without effusion - thus, no evidence of septic arthritis; no evidence of gouty arthritis. (2) Ankle pain, left: improved in <24 hours. imaging without signs of ankle effusion. low suspicion for septic joint or gouty/inflammatory arthritis. appreciate orthopedics consult - pain felt to have been from cellulitis. he had had diffuse arthralgias in other locations (shoulders, knees, etc) - possibly due to systemic effects from infectious process of left leg? (3) Left leg swelling: doppler negative for DVT 2nd to cellulitis of left leg - improving (4) Elevated troponin I level: suspect myocardial demand ischemia in setting of left leg cellulitis doubt ACS (5) Lung cancer: non small cell lung ca follows with Dr. Anand at [facility] currently on Opdivo - continue such (6) COPD (chronic obstructive pulmonary disease): no exacerbation at this time on chronic NC O2 - 2L at rest, 4L with exertion cont inhalers (7) Chronic respiratory failure: as above stable (8) BPH with obstruction/lower urinary tract symptoms: cont alpha dean cont finasteride (9) Bladder cancer metastasized to pelvic region: followed by Dr Anand on chronic methadone for chronic pain syndrome (10) Hypertension: BP stable on CCB (11) Chronic pain syndrome: cont methadone at home doses (12) Osteoarthritis of knees, bilateral: add voltaren gel qid (13) DVT prophylaxis: heparin SC overall improved overnight Subjective patient reports diffuse arthralgias in shoulders, hips, knees , other joints all resolved. pain in left foot /ankle markedly improved today. still has edema and redness of distal left leg and foot but also improved. denies missing methadone doses at home prior to admission. denies any difficulty breathing today. Review of Systems Constitutional: no fever, no chills and no anorexia Respiratory: + cough; no dyspnea Cardiovascular: no chest pain Gastrointestinal: no abdominal pain Physical Exam Constitutional: no acute distress and no altered mental status ENMT: external ear and nose normal, oropharynx normal Respiratory: no respiratory distress Auscultation: + wheezes Cardiovascular: Rate/Rhythm: regular rate and regular rhythm Heart Sounds: normal S1 and normal S2; no murmur Vessels: posterior tibial pulses present and dorsalis pedis pulses present; no JVD Extremities: + edema (left leg - distal - 1/2+) Gastrointestinal (Abdomen): normal bowel sounds, soft, nontender, no hep atosplenomegaly Musculoskeletal: left ankle with edema but passive ROM produces no pain; no tenderness to palpation over the left foot. b/l knees with OA changes; minimal effusion with erythema left knee. Skin: mild erythema of distal left leg extending onto dorsum of left foot Psychiatric: A+Ox3, euthymic affect Results & Data Vital Signs (Past 12 Hours) Vital Signs Temp Pulse Resp BP Pulse Ox 01/10/19 15:02 36.9 C 88 20 153/67 H 97 01/10/19 12:00 36.7 C 79 17 125/69 96 Laboratory Results Laboratory Results - last 24 hr 01/10/19 01/10/19 01/10/19 05:23 05:23 05:23 WBC 11.85 H RBC 3.73 L Hgb 10.4 L Hct 33.4 L MCV 89.5 MCH 27.9 MCHC 31.1 L RDW Std Deviation 48.5 H RDW Coeff of James 14.7 H Plt Count 378 MPV 9.0 Immature Gran % (Auto) 0.5 Neut % (Auto) 88.7 Lymph % (Auto) 8.4 [place] % (Auto) 2.3 Eos % (Auto) 0.0 Baso % (Auto) 0.1 Immature Gran # (Auto) 0.06 H Neut # (Auto) 10.51 H Lymph # (Auto) 1.00 L [place] # (Auto) 0.27 Eos # (Auto) 0.00 Baso # (Auto) 0.01 Sodium 139 Potassium 4.2 Chloride 103 Carbon Dioxide 28 Anion Gap 7.0 BUN 21 H Creatinine 0.83 Est Cr Clr Drug Dosing 96.6 Est GFR ( Amer) 102.6 Est GFR (Non-Af Amer) 88.5 BUN/Creatinine Ratio 25.7 H Glucose 171 H Estimat Average Glucose Hemoglobin A1c Uric Acid 5.2 Calcium 9.4 Troponin I 0.122 H* 01/10/19 05:23 WBC RBC Hgb Hct MCV MCH MCHC RDW Std Deviation RDW Coeff of James Plt Count MPV Immature Gran % (Auto) Neut % (Auto) Lymph % (Auto) [place] % (Auto) Eos % (Auto) Baso % (Auto) Immature Gran # (Auto) Neut # (Auto) Lymph # (Auto) [place] # (Auto) Eos # (Auto) Baso # (Auto) Sodium Potassium Chloride Carbon Dioxide Anion Gap BUN Creatinine Est Cr Clr Drug Dosing Est GFR ( Amer) Est GFR (Non-Af Amer) BUN/Creatinine Ratio Glucose Estimat Average Glucose 160 Hemoglobin A1c 7.2 H Uric Acid Calcium Troponin I PG Care Time/CCT Total # of Minutes Spent Total Time Spent with Patient: Total time spent is greater than 50% in coordination of care (as documented) at patient's floor/unit and/or counseling patient: (1) Ankle pain, left Chronicity: chronic Qualified Code(s): M25.572 - Pain in left ankle and joints of left foot; G89.29 - Other chronic pain (2) Cellulitis Site of cellulitis: unspecified site Qualified Code(s): L03.90 - Cellulitis, unspecified (3) Lung cancer Laterality: unspecified laterality Lung location: unspecified part of lung Qualified Code(s): C34.90 - Malignant neoplasm of unspecified part of unspecified bronchus or lung (4) COPD (chronic obstructive pulmonary disease) COPD type: unspecified COPD Qualified Code(s): J44.9 - Chronic obstructive pulmonary disease, unspecified (5) Chronic respiratory failure Respiratory failure complication: hypoxia Qualified Code(s): J96.11 - Chronic respiratory failure with hypoxia (6) Hypertension Hypertension type: essential hypertension Qualified Code(s): I10 - Essential (primary) hypertension (7) Osteoarthritis of knees, bilateral Osteoarthritis type: primary Qualified Code(s): M17.0 - Bilateral primary osteoarthritis of knee
[2019-01-10] MEDS: TERAZOSIN HCL 1 MG CAP PO SCH (21:51)
[2019-01-10] MEDS: DAPTOmycin 450 MG in SYRINGE 0 ML IV SCH (21:51)
[2019-01-10] MEDS: AMLODIPINE BESYLATE 5 MG TAB PO SCH (21:51)
[2019-01-11] MEDS: METHADONE HCL 10 MG TAB PO SCH ×4 (05:17→22:32)
[2019-01-11] MEDS: HEPARIN SOD 5,000 UNIT/0.5 ML VIAL SQ SCH ×3 (05:21→20:29)
[2019-01-11 05:32] LABS: BUN Creatinine Ratio 33.8 (10-20); Calcium 8.9 mg/dl (8.5-10.1); Est GFR (African American) 108.8; Est GFR (Non-African American) 93.9; Magnesium 2.3 mg/dl (1.8-2.4); Potassium 4.3 mmol/L (3.5-5.1)
[2019-01-11] MEDS: MAGNESIUM OXIDE 400 MG TAB PO SCH ×2 (08:22→20:27)
[2019-01-11] MEDS: PYRIDOXINE HCL 50 MG TAB PO SCH (08:23)
[2019-01-11] MEDS: CETIRIZINE HCL 10 MG TABLET PO SCH (08:23)
[2019-01-11] MEDS: BUDESONIDE/FORMOTEROL FUMARATE 160/4.5 60 PUFFS/INHALER INH SCH ×2 (08:24→20:28)
[2019-01-11] MEDS: TIOTROPIUM BROMIDE 5 PUFF/90 MCG INH INH SCH (08:24)
[2019-01-11] MEDS: DICLOFENAC SOD 1% GEL 100 GM TUBE EXT SCH ×4 (08:25→20:28)
[2019-01-11] MEDS: DOCUSATE SODIUM 100 MG CAP PO SCH ×2 (08:29→20:26)
[2019-01-11] MEDS: FINASTERIDE 5 MG TAB PO SCH (08:29)
--- NOTE | 2019-01-11 10:18 | Orthopedic Progress Note ---
Date of Service January 11, 2019 Assessment & Plan (1) Cellulitis: 73 yo male with improving left ankle/foot pain/cellulitis, on IV Daptomycin 1. Med management 2. Ortho to sign off, please notify if symptoms change/worsen Subjective Pt sitting bedside, denies c/o significant ankle pain Physical Exam Physical Exam: Moderate swelling left lower leg, ankle, and foot. No erythema noted. AROM without pain Results & Data Vital Signs (Past 12 Hours) Vital Signs Temp Pulse Pulse Resp BP BP Pulse Ox 01/11/19 07:37 36.8 C 81 18 132/62 96 01/11/19 07:35 74 01/11/19 04:00 36.6 C 80 22 130/67 94 01/11/19 01:57 63 01/10/19 22:56 36.6 C 20 130/68 95 01/10/19 22:38 93 H (1) Cellulitis Site of cellulitis: unspecified site Qualified Code(s): L03.90 - Cellulitis, unspecified
[2019-01-11] MEDS ORDERED: SODIUM CHLORIDE 0.65% NA SOLN 45 ML (OCEAN) PRN ×2 (14:38→18:53)
[2019-01-11] MEDS ORDERED: FUROSEMIDE 20 MG TAB PO SCH (17:00)
[2019-01-11] MEDS ORDERED: predniSONE 20 MG TAB PO ONE (17:15)
--- NOTE | 2019-01-11 18:01 | XRay Report ---
XR knee LT 2V routine HISTORY: 73 years-old Male effusion, pain; gout?CPPD? Chronic left knee pain COMPARISON: CT left foot and ankle 01/09/2019 TECHNIQUE: 2 views of the left knee FINDINGS: Mild medial and patellofemoral compartment osteoarthritis. Small joint effusion. Diffuse soft tissue prominence of the imaged left lower extremity. No acute fracture, dislocation or opaque foreign body. No erosive changes. IMPRESSION: Soft tissue prominence without acute fracture or dislocation. The above report was generated using voice recognition software. It may contain grammatical, syntax o r spelling errors. Electronically signed by: Mauricio Andre M.D. 01/11/2019 5:59 PM
--- NOTE | 2019-01-11 18:03 | XRay Report ---
XR shoulder LT min 2V routine HISTORY: 73 years-old Male pain, atrophy; rotator cuff tear? Chronic left shoulder pain COMPARISON: Chest radiograph 01/09/2019 TECHNIQUE: 3 views of the left shoulder FINDINGS: Moderate AC joint with mild glenohumeral osteoarthritis. No bony erosive changes. Slightly decreased acromiohumeral interval with spurring of the lateral acromion and greater tuberosity. Subcortical cys tic changes of the greater tuberosity are also noted. No acute fracture or dislocation. Imaged lung f ields appear clear. IMPRESSION: Osteoarthritis without acute fracture or dislocation. The above report was generated using voice recognition software. It may contain grammatical, syntax o r spelling errors. Electronically signed by: Mauricio Andre M.D. 01/11/2019 6:01 PM
[2019-01-11] MEDS ORDERED: SALINE NASAL 225 SPRAYS, GENTAMICIN SULFATE 60 MG, BARCODE IDENTIFIER 0 EA PRN (18:06)
[2019-01-11] MEDS ORDERED: Nursing to Pharmacy Communication ONE (18:44)
[2019-01-11] MEDS: cephALEXin 500 MG CAP PO SCH (20:27)
[2019-01-11] MEDS: TERAZOSIN HCL 1 MG CAP PO SCH (20:27)
[2019-01-11] MEDS: AMLODIPINE BESYLATE 5 MG TAB PO SCH (20:28)
--- NOTE | 2019-01-11 21:37 | Hospitalist Progress Note ---
Date of Service January 11, 2019 Assessment & Plan (1) Cellulitis: left leg/foot - improving/resolved. STOP IV daptomycin. Place on cephalexin TID and complete 7=10 days in total of abx. CT ankle without effusion - thus, no evidence of septic arthritis. (2) Ankle pain, left: received large dose of IV steroids on hospital day #1 and by hospital day #2 his ankle was feeling better. this would argue for some sort of inflammatory process of the foot/ankle. sed rate was indeed >90. no evidence of CPPD on imaging. cannot fully exclude gout even with the normal uric acid level. will place back on prednisone 20mg daily for the left shoulder/knee/ankle as this still could be a polyarticular inflammatory arthritis. (3) Left leg swelling: doppler negative for DVT 2nd to cellulitis of left leg +/- inflammatory arthropathy. lasix 20mg po x 1. prednisone 20mg daily. (4) Elevated troponin I level: suspect myocardial demand ischemia in setting of left leg cellulitis doubt ACS (5) Lung cancer: non small cell lung ca follows with Dr. 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 these areas previously had been doing better. redness in distal left leg is better however. eating fine. having cough with sputum production. dyspnea at baseline. Review of Systems Constitutional: no fever and no chills Respiratory: + sputum production Cardiovascular: no chest pain Gastrointestinal: no nausea and no vomiting Physical Exam Constitutional: no acute distress and no altered mental status ENMT: external ear and nose normal, oropharynx normal Respiratory: no respiratory distress Auscultation: + wheezes (scattered ) Cardiovascular: Rate/Rhythm: regular rate and regular rhythm Heart Sounds: normal S1 and normal S2; no murmur Vessels: posterior tibial pulses present and dorsalis pedis pulses present; no JVD Extremities: + edema (left leg - 2+; right leg <1+) Gastrointestinal (Abdomen): normal bowel sounds, soft, nontender, no hepatosplenomegaly Musculoskeletal: left shoulder: no synovitis or effusion; tender with passive ROM and palpation. Mild periarticular atrophy noted. left knee: mild effusion, scant erythema, tender to palpation and with passive flexion/extension. left ankle: gross edema in the distal left leg and foot. No warmth; no redness. Able to passively flex/extend the ankle without difficulty. Skin: cellulitis - resolved - distal left leg/foot Psychiatric: A+Ox3, euthymic affect Results & Data Vital Signs (Past 12 Hours) Vital Signs Temp Pulse Resp BP BP Pulse Ox 01/11/19 19:32 36.7 C 69 22 109/64 98 01/11/19 15:37 36.5 C 87 23 110/60 96 01/11/19 11:33 36.4 C L 82 18 124/55 L 98 Laboratory Results Laboratory Results - last 24 hr 01/11/19 01/11/19 04:46 20:46 Sodium 142 Potassium 4.3 Chloride 108 H Carbon Dioxide 27 Anion Gap 7.0 BUN 24 H Creatinine 0.72 Est Cr Clr Drug Dosing 113.0 Est GFR ( Amer) 108.8 Est GFR (Non-Af Amer) 93.9 BUN/Creatinine Ratio 33.8 H Glucose 134 H POC Glucose 114 H Calcium 8.9 Magnesium 2.3 PG Care Time/CCT Total # of Minutes Spent Total Time Spent with Patient: Total time spent is greater than 50% in coordination of care (as documented) at patient's floor/unit and/or counseling patient: (1) Osteoarthritis of knees, bilateral Osteoarthritis type: primary Qualified Code(s): M17.0 - Bilateral primary osteoarthritis of knee (2) Chronic respiratory failure Respiratory failure complication: hypoxia Qualified Code(s): J96.11 - Chronic respiratory failure with hypoxia (3) Cellulitis Site of cellulitis: unspecified site Qualified Code(s): L03.90 - Cellulitis, unspecified (4) Lung cancer Laterality: unspecified laterality Lung location: unspecified part of lung Qualified Code(s): C34.90 - Malignant neoplasm of unspecified part of unspecified bronchus or lung (5) Ankle pain, left Chronicity: chronic Qualified Code(s): M25.572 - Pain in left ankle and joints of left foot; G89.29 - Other chronic pain (6) COPD (chronic obstructive pulmonary disease) COPD type: unspecified COPD Qualified Code(s): J44.9 - Chronic obstructive pulmonary disease, unspecified (7) Hypertension Hypertension type: essential hypertension Qualified Code(s): I10 - Essential (primary) hypertension
[2019-01-12] MEDS: METHADONE HCL 10 MG TAB PO SCH ×4 (05:16→22:44)
[2019-01-12] MEDS: HEPARIN SOD 5,000 UNIT/0.5 ML VIAL SQ SCH ×3 (05:16→20:54)
[2019-01-12] MEDS: cephALEXin 500 MG CAP PO SCH ×3 (08:03→20:43)
[2019-01-12] MEDS: BUDESONIDE/FORMOTEROL FUMARATE 160/4.5 60 PUFFS/INHALER INH SCH ×2 (08:03→20:47)
[2019-01-12] MEDS: TIOTROPIUM BROMIDE 5 PUFF/90 MCG INH INH SCH (08:03)
[2019-01-12] MEDS: DOCUSATE SODIUM 100 MG CAP PO SCH ×2 (08:04→20:46)
[2019-01-12] MEDS: FINASTERIDE 5 MG TAB PO SCH (08:04)
[2019-01-12] MEDS: MAGNESIUM OXIDE 400 MG TAB PO SCH ×2 (08:04→20:44)
[2019-01-12] MEDS: CETIRIZINE HCL 10 MG TABLET PO SCH (08:05)
[2019-01-12] MEDS: PYRIDOXINE HCL 50 MG TAB PO SCH (08:05)
[2019-01-12] MEDS: DICLOFENAC SOD 1% GEL 100 GM TUBE EXT SCH ×4 (08:06→20:45)
[2019-01-12] MEDS: predniSONE 20 MG TAB PO SCH (11:48)
[2019-01-12] MEDS ORDERED: BENZOCAINE/TETRACAIN/BUTAM CAN 200 APPLN/20 GM CAN EXT PRN (16:32)
[2019-01-12] MEDS ORDERED: FUROSEMIDE 20 MG TAB PO STA (18:29)
[2019-01-12] MEDS ORDERED: POTASSIUM CHLORIDE 20 MEQ TABCR PO STA (18:29)
--- NOTE | 2019-01-12 20:31 | Hospitalist Progress Note ---
Date of Service January 12, 2019 Assessment & Plan (1) Cellulitis: resolved. distal left leg. finish course of keflex. (2) Osteoarthritis of knees, bilateral: the patient has had knee pain - mainly on left - with associated synovitis since earlier this week. the knee findings - effusion, mild erythema, etc - have improved nicely however with multiple doses of IV/PO steroids. the elevated sed rate (>90) and response to steroids would argue his joint complaints were due to some form of inflammatory process. still believe that polyarticular arthritis from gout is most likely. he wanted a definitive diagnosis since "he had been dealing with this since November." I gave him the option of simply continuing with steroids since he is responding well. However, he wanted to pursue arthrocentesis. I attempted arthrocentesis of the left knee today - there was a small effusion, if anything, and I explained that we may not get anything out on the tap. See my procedure note. Unfortunately I did not get any fluid out on my attempt. [id number] will treat this likely he had gouty arthritis. Cont the prednisone. (3) Ankle pain, left: improved - see prior notes re: this issue see above in "osteoarthritis of knees" (4) Left leg swelling: doppler negative for DVT 2nd to cellulitis of left leg - improving/resolved cannot exclude inflammatory arthropathy lasix 20mg po x 1 again today (5) Elevated troponin I level: suspect myocardial demand ischemia in setting of left leg cellulitis doubt ACS (6) Lung cancer: non small cell lung ca follows with Dr. Anand at [facility] currently on Opdivo - continue such (7) COPD (chronic obstructive pulmonary disease): stable, improved cough/wheezing with steroids being used for arthritis on chronic NC O2 - 2L at rest, 4L with exertion cont inhalers (8) Chronic respiratory failure: as above stable (9) BPH with obstruction/lower urinary tract symptoms: cont alpha dean cont finasteride (10) Bladder cancer metastasized to pelvic region: followed by Dr Anand on chronic methadone for chronic pain syndrome (11) Hypertension: BP stable on CCB (12) Chronic pain syndrome: cont methadone at home doses (13) DVT prophylaxis: heparin SC will obtain PT eval to ensure safe for d/c home Subjective left shoulder a little better today. left knee also improved but not back to baseline. still with edema left distal leg/foot. overall feels better but "wants to know what this is." telemetry stable overnight. Review of Systems Constitutional: no fever and no anorexia Respiratory: + dyspnea on exertion and + sputum production Cardiovascular: no chest pain Gastrointestinal: no abdominal pain, no nausea and no vomiting Physical Exam Constitutional: no acute distress and no altered mental status ENMT: external ear and nose normal, oropharynx normal Respiratory: no respiratory distress Auscultation: no crackles and no wheezes Cardiovascular: Rate/Rhythm: regular rate and regular rhythm Heart Sounds: normal S1 and normal S2; no murmur Vessels: posterior tibial pulses present and dorsalis pedis pulses present; no JVD Extremities: + edema (edema improved b/l; still about 1-2+ on left ) Gastrointestinal (Abdomen): normal bowel sounds, soft, nontender, no hepatosplenomegaly Musculoskeletal: left shoulder - less tender today to palpation. left knee - effusion smaller today; no erythema; no warmth; less tenderness. left ankle - passive ROM without pain. Psychiatric: A+Ox3, euthymic affect Results & Data Vital Signs (Past 12 Hours) Vital Signs Temp Pulse Resp BP BP Pulse Ox 01/12/19 19:00 36.5 C 85 20 133/70 93 01/12/19 15:19 36.6 C 79 20 122/69 95 01/12/19 11:30 36.4 C L 75 18 119/69 96 Laboratory Results Laboratory Results - last 24 hr 01/11/19 01/12/19 01/12/19 20:46 07:28 11:36 POC Glucose 114 H 109 H 80 01/12/19 01/12/19 16:36 19:41 POC Glucose 124 H 140 H PG Care Time/CCT Total # of Minutes Spent Total Time Spent with Patient: Total time spent is greater than 50% in coordination of care (as documented) at patient's floor/unit and/or counseling patient: (1) Osteoarthritis of knees, bilateral Osteoarthritis type: primary Qualified Code(s): M17.0 - Bilateral primary osteoarthritis of knee (2) Chronic respiratory failure Respiratory failure complication: hypoxia Qualified Code(s): J96.11 - Chronic respiratory failure with hypoxia (3) Cellulitis Site of cellulitis: unspecified site Qualified Code(s): L03.90 - Cellulitis, unspecified (4) Lung cancer Laterality: unspecified laterality Lung location: unspecified part of lung Qualified Code(s): C34.90 - Malignant neoplasm of unspecified part of unspecified bronchus or lung (5) Ankle pain, left Chronicity: chronic Qualified Code(s): M25.572 - Pain in left ankle and joints of left foot; G89.29 - Other chronic pain (6) COPD (chronic obstructive pulmonary disease) COPD type: unspecified COPD Qualified Code(s): J44.9 - Chronic obstructive pulmonary disease, unspecified (7) Hypertension Hypertension type: essential hypertension Qualified Code(s): I10 - Essential (primary) hypertension
--- NOTE | 2019-01-12 20:36 | Procedure Note ---
Procedure Note Date of Service January 12, 2019 Procedure: left knee arthrocentesis Indication: left knee pain, effusion, etiology uncertain Consent: signed, in chart Time out: called at 1810 After identification of anatomical landmarks of the left knee, the patient's knee was prepped with betadine in sterile fashion. This was allowed to dry for 5 minutes. Using a medial infra-patellar approach, and following multiple applications of topical cetacaine spray for analgesia, a 20gu needle was used for the arthrocentesis. He did not tolerate this well despite copious cetacaine. The joint was entered following 1 attempt; no joint fluid was obtained however. EBL - <1cc. Band-aid applied. No apparent complications. Sherif Lawler MD Coding
[2019-01-12] MEDS: AMLODIPINE BESYLATE 5 MG TAB PO SCH (20:43)
[2019-01-12] MEDS: TERAZOSIN HCL 1 MG CAP PO SCH (20:46)
[2019-01-13] MEDS: METHADONE HCL 10 MG TAB PO SCH ×4 (05:09→22:40)
[2019-01-13] MEDS: HEPARIN SOD 5,000 UNIT/0.5 ML VIAL SQ SCH ×3 (05:09→20:55)
[2019-01-13 07:06] LABS: Hemoglobin 10.9 g/dL (14.0-18.0); Mean Corpuscular Hemoglobin 29.1 pg (25-34); Mean Corpuscular Hgb Conc 32.1 g/dL (32-36); Mean Corpuscular Volume 90.7 fL (80-100); Mean Platelet Volume 9.1 fL (7.4-10.4); Platelet Count 382 K/uL (130-400); Red Blood Count 3.75 M/uL (4.7-6.1); White Blood Count 12.94 K/uL (4.8-10.8)
[2019-01-13 07:45] LABS: BUN Creatinine Ratio 24.1 (10-20); Calcium 9.3 mg/dl (8.5-10.1); Creatinine Clr Calc Pharmacy 88.1 ml/min; Est GFR (African American) 100.6; Est GFR (Non-African American) 86.8; Potassium 4.1 mmol/L (3.5-5.1)
[2019-01-13] MEDS: CETIRIZINE HCL 10 MG TABLET PO SCH (08:40)
[2019-01-13] MEDS: DICLOFENAC SOD 1% GEL 100 GM TUBE EXT SCH ×4 (08:41→20:54)
[2019-01-13] MEDS: TIOTROPIUM BROMIDE 5 PUFF/90 MCG INH INH SCH (08:41)
[2019-01-13] MEDS: predniSONE 20 MG TAB PO SCH (08:41)
[2019-01-13] MEDS: cephALEXin 500 MG CAP PO SCH ×3 (08:42→20:53)
[2019-01-13] MEDS: MAGNESIUM OXIDE 400 MG TAB PO SCH ×2 (08:42→20:54)
[2019-01-13] MEDS: BUDESONIDE/FORMOTEROL FUMARATE 160/4.5 60 PUFFS/INHALER INH SCH ×2 (08:42→20:54)
[2019-01-13] MEDS: DOCUSATE SODIUM 100 MG CAP PO SCH ×2 (08:43→20:53)
[2019-01-13] MEDS: PYRIDOXINE HCL 50 MG TAB PO SCH (08:43)
[2019-01-13] MEDS: FINASTERIDE 5 MG TAB PO SCH (08:43)
[2019-01-13] MEDS ORDERED: predniSONE 20 MG TAB PO STA (15:29)
--- NOTE | 2019-01-13 15:37 | Hospitalist Progress Note ---
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 mainly large joints - left shoulder, left knee, left ankle, mid-foot on left, and now his right wrist. it was immediately responsive to prednisone early this week. prednisone was tapered to 20mg/day and with such his symptoms worsened. I initially thought that this issue was due to gout but gout should improve quickly with low-dose steroids -- he is not following that type of course. Doubt RA. HepB,C negative. This could be a seronegative inflammatory arthropathy from his Opdivo. The literature well documents this type of adverse side effect from Opdivo. Spoke with Dr Anand and he is ok with stopping the Opdivo. Spoke with Dr Lawler from rheumatology - he agrees this sounds like inflammatory arthritis from the Opdivo. He agrees that this typically requires high-dose steroids for a prolonged period of time along with cessation of the Opdivo. Will increase his prednisone to 60mg/day. Opdivo to be d/c. Will refer to Dr Lawler after discharge. (2) Cellulitis: if he ever had cellulitis of distal left leg it is fully resolved. it is possible that the erythema was due to joint inflammation and not actually skin infection. finish course of keflex - probably 2 more days, then stop. (3) Elevated troponin I level: suspect myocardial demand ischemia rather than ACS (4) Lung cancer: non small cell lung ca follows with Dr. Anand at [facility] currently on Opdivo - to be stopped -- see above (5) COPD (chronic obstructive pulmonary disease): stable, improved cough/wheezing with steroids being used for arthritis on chronic NC O2 - 2L at rest, 4L with exertion cont inhalers (6) Chronic respiratory failure: as above stable (7) BPH with obstruction/lower urinary tract symptoms: cont alpha dean cont finasteride (8) Bladder cancer metastasized to pelvic region: followed by Dr Anand on chronic methadone for chronic pain syndrome (9) Hypertension: BP stable on CCB (10) Chronic pain syndrome: cont methadone (11) DVT prophylaxis: heparin SC cont PT/OT hopefully home soon Subjective patient states that left knee pain/swelling/tenderness is resolved. now having swelling of right wrist - that started this AM. left shoulder pain is fair - no worse than previous. edema both legs ongoing. left ankle/foot pain ongoing - especially the mid-foot. eating well. able to ambulate today but only <20 feet. [place] at baseline. Review of Systems Constitutional: no fever, no chills, no fatigue and no anorexia Respiratory: + cough and + sputum production (white - no change) Cardiovascular: no chest pain Gastrointestinal: no abdominal pain, no nausea and no vomiting Physical Exam Constitutional: no acute distress and no altered mental status ENMT: external ear and nose normal, oropharynx normal Respiratory: no respiratory distress Auscultation: no crackles and no wheezes Cardiovascular: Rate/Rhythm: regular rate and regular rhythm Heart Sounds: normal S1 and normal S2; no murmur Vessels: posterior tibial pulses present and dorsalis pedis pulses present; no JVD Extremities: + edema (edema about 1-2+ on left, <1+ on right) Gastrointestinal (Abdomen): normal bowel sounds, soft, nontender, no hepatosplenomegaly Musculoskeletal: new synovitis/joint swelling of right wrist; no swelling left shoulder; effusion left knee resolved; left ankle no tenderness but gross swelling present; left mid-foot with tenderness to palpation Psychiatric: A+Ox3, euthymic affect Results & Data Vital Signs (Past 12 Hours) Vital Signs Temp Pulse Pulse Resp BP BP Pulse Ox 01/13/19 11:49 36.8 C 99 H 18 122/65 95 01/13/19 07:50 36.9 C 83 18 122/69 97 01/13/19 07:29 77 01/13/19 03:44 36.5 C 63 19 122/71 98 Laboratory Results Laboratory Results - last 24 hr 01/13/19 01/13/19 01/13/19 11:37 15:38 15:38 POC Glucose 149 H C-Reactive Protein 9.78 H Rheumatoid Factor Lyme Disease IgG Ab Lyme IgG (Western Blot) Lyme IgG 18 kDa Band Lyme IgG 23 kDa Band Lyme IgG 28 kDa Band Lyme IgG 30 kDa Band Lyme IgG 39 kDa Band Lyme IgG 41 kDa Band Lyme IgG 45 kDa Band Lyme IgG 58 kDa Band Lyme IgG 66 kDa Band Lyme IgG 93 kDa Band Lyme Disease IgM Ab Lyme IgM (Western Blot) Lyme IgM 23 kDa Band Lyme IgM 39 kDa Band Lyme IgM 41 kDa Band Hepatitis A Ab Total Hep Bs Antigen Neg Hepatitis C Antibody Neg 08/29/19 08/29/19 08/29/19 15:38 15:38 15:38 POC Glucose C-Reactive Protein Rheumatoid Factor Pending Lyme Disease IgG Ab Negative Lyme IgG (Western Blot) Pending Lyme IgG 18 kDa Band Pending Lyme IgG 23 kDa Band Pending Lyme IgG 28 kDa Band Pending Lyme IgG 30 kDa Band Pending Lyme IgG 39 kDa Band Pending Lyme IgG 41 kDa Band Pending Lyme IgG 45 kDa Band Pending Lyme IgG 58 kDa Band Pending Lyme IgG 66 kDa Band Pending Lyme IgG 93 kDa Band Pending Lyme Disease IgM Ab Equivocal A Lyme IgM (Western Blot) Pending Lyme IgM 23 kDa Band Pending Lyme IgM 39 kDa Band Pending Lyme IgM 41 kDa Band Pending Hepatitis A Ab Total Pending Hep Bs Antigen Hepatitis C Antibody 01/13/19 01/13/19 01/14/19 16:20 20:02 07:36 POC Glucose 152 H 166 H 102 H C-Reactive Protein Rheumatoid Factor Lyme Disease IgG Ab Lyme IgG (Western Blot) Lyme IgG 18 kDa Band Lyme IgG 23 kDa Band Lyme IgG 28 kDa Band Lyme IgG 30 kDa Band Lyme IgG 39 kDa Band Lyme IgG 41 kDa Band Lyme IgG 45 kDa Band Lyme IgG 58 kDa Band Lyme IgG 66 kDa Band Lyme IgG 93 kDa Band Lyme Disease IgM Ab Lyme IgM (Western Blot) Lyme IgM 23 kDa Band Lyme IgM 39 kDa Band Lyme IgM 41 kDa Band Hepatitis A Ab Total Hep Bs Antigen Hepatitis C Antibody PG Care Time/CCT Total # of Minutes Spent Total Time Spent with Patient: Total time spent is greater than 50% in coordination of care (as documented) at patient's floor/unit and/or counseling patient: (1) Chronic respiratory failure Respiratory failure complication: hypoxia Qualified Code(s): J96.11 - Chronic respiratory failure with hypoxia (2) Cellulitis Site of cellulitis: unspecified site Qualified Code(s): L03.90 - Cellulitis, unspecified (3) Lung cancer Laterality: unspecified laterality Lung location: unspecified part of lung Qualified Code(s): C34.90 - Malignant neoplasm of unspecified part of unspecified bronchus or lung (4) COPD (chronic obstructive pulmonary disease) COPD type: unspecified COPD Qualified Code(s): J44.9 - Chronic obstructive pulmonary disease, unspecified (5) Hypertension Hypertension type: essential hypertension Qualified Code(s): I10 - Essential (primary) hypertension
[2019-01-13 16:32] LABS: Hepatitis B Surface Antigen Neg (Neg)
[2019-01-13 17:01] LABS: Hepatitis C IgG 13Yrs+Old_Rflx Neg (Neg)
[2019-01-13 17:49] LABS: Lyme Ab IgG w/WB Rflx Negative (Negative)
[2019-01-13 17:55] LABS: Lyme Ab IgM w/WB Rflx Equivocal (Negative)
[2019-01-13] MEDS: AMLODIPINE BESYLATE 5 MG TAB PO SCH (20:53)
[2019-01-13] MEDS: TERAZOSIN HCL 1 MG CAP PO SCH (20:53)
[2019-01-14] MEDS: METHADONE HCL 10 MG TAB PO SCH ×4 (05:36→23:02)
[2019-01-14] MEDS: HEPARIN SOD 5,000 UNIT/0.5 ML VIAL SQ SCH ×4 (05:36→21:02)
[2019-01-14] MEDS: predniSONE 20 MG TAB PO SCH (09:00)
[2019-01-14] MEDS: DOCUSATE SODIUM 100 MG CAP PO SCH ×2 (09:00→20:53)
[2019-01-14] MEDS: PYRIDOXINE HCL 50 MG TAB PO SCH (09:01)
[2019-01-14] MEDS: CETIRIZINE HCL 10 MG TABLET PO SCH (09:01)
[2019-01-14] MEDS: FINASTERIDE 5 MG TAB PO SCH (09:02)
[2019-01-14] MEDS: MAGNESIUM OXIDE 400 MG TAB PO SCH ×2 (09:02→20:45)
[2019-01-14] MEDS: cephALEXin 500 MG CAP PO SCH ×3 (09:02→20:46)
[2019-01-14] MEDS: DICLOFENAC SOD 1% GEL 100 GM TUBE EXT SCH ×4 (09:02→20:46)
[2019-01-14] MEDS: BUDESONIDE/FORMOTEROL FUMARATE 160/4.5 60 PUFFS/INHALER INH SCH ×2 (09:02→20:46)
[2019-01-14] MEDS: TIOTROPIUM BROMIDE 5 PUFF/90 MCG INH INH SCH (09:03)
[2019-01-14] MEDS ORDERED: predniSONE 20 MG TAB PO STA (09:08)
[2019-01-14] MEDS: FUROSEMIDE 20 MG TAB PO SCH (09:27)
--- NOTE | 2019-01-14 15:04 | Medical Student H&P ---
Date of Service January 14, 2019 Assessment & Plan Treatment Plan (1) Joint Pain - Patient endorses joint pain that is now affecting many joints: left ankle, left foot, left knee, left elbow, left shoulder, sternum, cervical spine, and right wrist. This pain seems to be a result of his opdivo therapy. Discontinue opdivo. Consult rheumatology. Increase dose of prednisone. (2) Lung Cancer - Last dose of opdivo in mid-November. Refer back to Dr. Anand. (3) Cellulitis - The lower extremity continues to have some edema but is non- erythematous. Patient has finished his course of antibiotics. Consider dose of lasix to reduce edema. Encourage ambulation. History of Present Illness Chief Complaint: Swelling in left lower extremity and multiple joint pains Primary Care Provider: Aylin Broderick PA-C Mr. Shetty is a 73 year-old male with a history of lung cancer, COPD, bladder cancer, and hypertension and hyperlipidemia who presented to the ED 5 days ago with swelling of the lower left extremity, foot and ankle pain, right lower extremity pallor and difficulty ambulating and performing activities of daily living. He was diagnosed with cellulitis and this was treated with a 7-day course of cefalexin. At this time he also reported some pain in all of his DIPs and PIPs but that pain has since resolved. Since his admission he has developed increasing joint pain. The pain originated in his left foot and ankle but within approximately one day, he also had pain in his left knee. Over the course of the 5 days that he has been here, the joint pain has extended to his left elbow, left shoulder, sternum, cervical spine, right wrist, right elbow and right shoulder. Within the first 3 days of his hospital stay all of the erythema associated with his cellulitis has diminished; however, he has persistent swelling the lower left extremity. In terms of the joint pain, the patient endorses morning accentuation of stiffness and pain and palliation with movement. In addition, the pain in his joint continues to limit his range of motion. The patient does not endorse xerostomia, dry eye, urethritis, or conjunctivitis during his hospital stay nor over the past several months The patient was diagnosed with lung cancer in late 2016 at which time he was placed on chemotherapy. He began taking opdivo in June of 2018 and is currently on a maintenance dose of this medication with his last treatment having taken place in mid-November. Today he states that the pain is worst in his left ankle and the dorsal surface of his foot. The pain in provoked with inversion and eversion of the ankle. His knee does not give him pain at rest; however, when he stands the knee becomes very painful making it difficult to walk. He states that he was able to move his bowels this morning, producing a formed stool which he states alleviated some of his abdominal pain. He feels that the dose of lasix allowed the swelling in his left lower extremity to decrease but is still worried about the swelling. Allergies Allergy/AdvReac Type Severity Reaction Status Date / Time Bactrim Allergy Severe TONGUE Verified 12/02/17 08:11 SWELLS/FONG mupirocin Allergy Severe ANAPHYLAXIS Verified 01/09/19 16:05 sulfamethoxazole Allergy Severe TONGUE Verified 01/09/19 16:05 SWELLS/FONG trimethoprim Allergy Severe TONGUE Verified 01/09/19 16:05 SWELLS/FONG Iodinated Contrast- Oral and Allergy Intermediate HIVES/ITCHI Verified 01/09/19 16:05 IV Dye NG lisinopril Allergy Intermediate Tongue Verified 01/09/19 16:05 Swelling mustard Allergy Intermediate Hives, Verified 01/09/19 16:05 SOB, Itchy aspirin Allergy Mild ITCHY Verified 01/09/19 16:05 adhesive AdvReac Intermediate Tape - Rash Verified 01/09/19 16:05 Home Medications Home Medications Medication Instructions Recorded Confirmed Type Spiriva with HandiHaler 1 cap INHALATION QAM 03/30/18 01/09/19 History Symbicort 2 puff INHALATION BID 03/30/18 01/09/19 History albuterol sulfate 2 puff INHALATION Q4H PRN 03/30/18 01/09/19 History ascorbic acid (vitamin C) [Vitamin 1 g PO QAM 03/30/18 01/09/19 History C] atorvastatin 80 mg PO PM 03/30/18 01/09/19 History cyanocobalamin (vitamin B-12) 100 mcg PO QAM 03/30/18 01/09/19 History [Vitamin B-12] docusate sodium 100 mg PO BID 03/30/18 01/09/19 History finasteride 5 mg PO QAM 03/30/18 01/09/19 History methadone 10 mg PO QID 03/30/18 01/09/19 History pyridoxine (vitamin B6) [Vitamin 100 mg PO QAM 03/30/18 01/09/19 History B-6] terazosin 2 mg PO QPM 03/30/18 01/09/19 History cholecalciferol (vitamin D3) 400 400 unit PO DAILY cap 12/01/18 01/09/19 History unit capsule magnesium oxide 400 mg PO BID 12/03/18 01/09/19 History amlodipine [Norvasc] 5 mg PO HS 12/07/18 01/09/19 History sennosides 17.2 mg PO BID PRN 12/07/18 01/09/19 History albuterol sulfate 1.25 mg INHALATION QID 12/28/18 01/09/19 History lidocaine [Lidoderm] 1 patch TOP DAILY PRN #15 ea 12/28/18 01/09/19 Rx cetirizine 5 mg PO DAILY 01/09/19 01/09/19 History Past Med/Surg History Medical History Chronic respiratory failure (Chronic) COPD (chronic obstructive pulmonary disease) (Chronic) Opioid dependence (Chronic) Bladder cancer metastasized to pelvic region (Acute) BPH (benign prostatic hyperplasia) (Chronic) COPD (chronic obstructive pulmonary disease) (Chronic) Elevated PSA (Chronic) H/O malignant neoplasm of skin (Chronic) Hyperlipidemia (Chronic) Non-small cell lung cancer (Chronic) CURRENTLY BEING TREATED W/ CHEMOTHERAPY Stroke (Chronic) 2009 - NO PERIPHERAL VISION RT SIDE - NO NEUROLOGIST Urothelial carcinoma (Chronic) H/O hematuria (Resolved) Hypertension (Resolved) Acute leg pain (Inactive) Left leg swelling (Inactive) Bladder cancer CURRENTLY BEING TREATED W/ CHEMOTHERAPY Chronic back pain Constipation Inguinal hernia BL Osteoarthritis Umbilical hernia Surgical History H/O prostate biopsy (Acute) H/O Moh's micrographic surgery for skin cancer (Resolved) H/O hand surgery (Resolved) H/O prostatectomy History of bronchoscopy W/ BIOPSY History of colonoscopy History of surgery TRANSURETHRAL RESECTION OF BLADDER TUMOR X 3 History of surgery PLACEMENT OF MEDIPORT W/ REMOVAL History of ureter stent W/ REMOVAL Family History Father , 69yo [place], DM, arthritis, HTN Diabetes Cardiac disorder Hypertension Mother , age 84 from stroke Cardiac disorder Hypertension Brother Diabetes Cardiac disorder Hypertension Cancer, face Sister History of kidney cancer Hypertension Unknown Lung cancer Leukemia Basal cell carcinoma Social History Preferred Language: Croatian Communication Ability: Effective Visual Impairment: No Limitations Hearing Ability: Clerical Methods Analyst Required: Yes Beliefs That Will Affect Care: None marital status: marital status details: 1 son and 3 daughters Current Living Situation: Alone Current Living Situation Comment: lives in [place] 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 Feels Safe at Home: Yes Smoking Status: Former smoker Tobacco Type: cigarettes ; Cigarettes Per Day: 1 ppd x 60 years; quit 1 month ago ; Second Hand Exposure: No ; Hx Alcohol Use: No Hx Substance Use: No caffeine: Yes (3 cups/day) during the past year weight has: decreased > 10 lbs Review of Systems + sweats; no fatigue, no malaise and no insomnia + cough and + dyspnea on exertion; no dyspnea no chest pain no problem reported no problem reported as per Subjective / HPI no problem reported Physical Exam Physical Exam: HEENT Normocephalic atraumatic; no edema, erythema, or white exudate present in the mouth or back of throat. Pulmonary No respiratory distress or increased respiratory effort. Lungs largely clear bilaterally to auscultation with no wheezes or rhonchi. Cardiac Regular rate and rhythm. No rubs, murmurs, or gallops. Pedal pulses appreciated. Peripheral edema in lower left extremity. Abdomen Bowel sounds normal. Abdomen soft, no hepatosplenomegaly. Slight tenderness in distribution of hernia on palpation. Skin Warm, pink, and dry. Neuro A&O x3. Thought pattern clear and organized. Musculoskeletal - Pain elicited on inversion and eversion of left ankle. No pain on palpation of other joints. Results & Data Vital Signs (Past 12 Hours) Vital Signs Temp Pulse Pulse Resp BP BP Pulse Ox 01/14/19 11:48 36.7 C 75 20 114/58 L 92 01/14/19 07:45 36.3 C L 69 18 129/71 98 01/14/19 07:39 59 L 01/14/19 04:00 36.4 C L 72 18 119/76 98 Laboratory Results WBC: 12.94 RBC: 3.75 Hgb: 10.9 Hct: 34.0 RDW: 50 ESR: >90 Code Status & VTE Plan VTE Prophylaxis Plan VTE Prophylaxis will be ordered: Yes
--- NOTE | 2019-01-14 20:17 | Hospitalist Progress Note ---
Date of Service January 14, 2019 Assessment & Plan (1) Polyarticular arthritis: IMPROVING. patient has had such for 6+ weeks. mainly large joints - left shoulder, left knee, left ankle, mid-foot on left, and now his right wrist. it was immediately responsive to prednisone early this week. prednisone was tapered to 20mg/day and with such his symptoms worsened. I initially thought that this issue was due to gout but gout should improve quickly with low-dose steroids -- he is not following that type of course. Doubt RA. RF pending. HepB,C negative. This could be a seronegative inflammatory arthropathy from his Opdivo. The literature well documents this type of adverse side effect from Opdivo. Spoke with Dr Anand and he is ok with stopping the Opdivo. Spoke with Dr Lawler from rheumatology - he agrees this sounds like inflammatory arthritis from the Opdivo. Cont prednisone 60mg/day. Will leave on this dose at discharge. Opdivo has been discontinued. Will refer to Dr Lawler after discharge at [facility] rheumatology. (2) Cellulitis: if he ever had cellulitis of distal left leg it is fully resolved. it is possible that the erythema was due to joint inflammation and not actually skin infection. finish course of keflex - probably another day then d/c. (3) Elevated troponin I level: suspect myocardial demand ischemia rather than ACS (4) Lung cancer: non small cell lung ca follows with Dr. Anand at [facility] currently on Opdivo - to be stopped -- see above in "polyarticular arthritis" (5) COPD (chronic obstructive pulmonary disease): stable, improved cough/wheezing with steroids being used for arthritis on chronic NC O2 - 2L at rest, 4L with exertion cont inhalers (6) Chronic respiratory failure: as above stable (7) BPH with obstruction/lower urinary tract symptoms: cont alpha dean cont finasteride no issues (8) Bladder cancer metastasized to pelvic region: followed by Dr Anand on chronic methadone for chronic pain syndrome (9) Hypertension: BP stable on CCB (10) Chronic pain syndrome: cont methadone (11) Borderline Lyme serology: lyme IgM is equivocal. IgG is negative. doubt he has lyme's causing the joint issues. typically by the time lyme's causes joint inflammation/swelling the IgG is posit tamiko. additionally it would be unusual to cause POLYARTICULAR arthritis (usually monoarticular or oligoarticular). simply follow western blot. (12) DVT prophylaxis: heparin SC cont PT/OT - cleared for home anticipate d/c home tomorrow Subjective right wrist swelling much improved today. no c/o left shoulder pain. left knee pain nearly resolved. main issue is still of left mid-foot pain but also improved relative to yesterday. denies any new areas of pain/swelling. edema of both legs much improved. Review of Systems Constitutional: no fever, no chills, no body aches, no fatigue and no anorexia Respiratory: + cough and + sputum production (still white; no purulence) Cardiovascular: no chest pain Gastrointestinal: no abdominal pain, no nausea, no vomiting, no constipation and no diarrhea/loose stools Physical Exam Constitutional: no acute distress and no altered mental status ENMT: external ear and nose normal, oropharynx normal Respiratory: no respiratory distress Auscultation: no crackles and no wheezes Cardiovascular: Rate/Rhythm: regular rate and regular rhythm Heart Sounds: normal S1 and normal S2; no murmur Vessels: posterior tibial pulses present and dorsalis pedis pulses present; no JVD Extremities: + edema (none on right; <1+ on left --- much improved.) Gastrointestinal (Abdomen): normal bowel sounds, soft, nontender, no hepatosplenomegaly Musculoskeletal: right wrist synovitis resolved; left shoulder w/o effusion; scant effusion without warmth/tenderness left knee; left ankle without pain/tenderness; gross swelling left foot overall improved; minimal tenderness with palpation of left mid-foot. Psychiatric: A+Ox3, euthymic affect Results & Data Vital Signs (Past 12 Hours) Vital Signs Temp Pulse Pulse Resp BP Pulse Ox 01/14/19 19:14 36.7 C 76 18 111/66 96 01/14/19 16:32 71 01/14/19 15:43 36.5 C 71 20 144/72 H 97 01/14/19 11:48 36.7 C 75 20 114/58 L 92 Laboratory Results Laboratory Results - last 24 hr 01/14/19 01/14/19 01/14/19 07:36 16:49 19:57 POC Glucose 102 H 201 H 179 H Laboratory Results - last 24 hr 01/14/19 01/14/19 01/14/19 07:36 16:49 19:57 POC Glucose 102 H 201 H 179 H PG Care Time/CCT Total # of Minutes Spent Total Time Spent with Patient: Total time spent is greater than 50% in coordination of care (as documented) at patient's floor/unit and/or counseling patient: (1) Chronic respiratory failure Respiratory failure complication: hypoxia Qualified Code(s): J96.11 - Chronic respiratory failure with hypoxia (2) Cellulitis Site of cellulitis: unspecified site Qualified Code(s): L03.90 - Cellulitis, unspecified (3) Lung cancer Laterality: unspecified laterality Lung location: unspecified part of lung Qualified Code(s): C34.90 - Malignant neoplasm of unspecified part of unspecified bronchus or lung (4) COPD (chronic obstructive pulmonary disease) COPD type: unspecified COPD Qualified Code(s): J44.9 - Chronic obstructive pulmonary disease, unspecified (5) Hypertension Hypertension type: essential hypertension Qualified Code(s): I10 - Essential (primary) hypertension
[2019-01-14] MEDS: AMLODIPINE BESYLATE 5 MG TAB PO SCH (20:47)
[2019-01-14] MEDS: TERAZOSIN HCL 1 MG CAP PO SCH (21:45)
[2019-01-14] MEDS: ATORVASTATIN 40 MG TAB PO SCH (21:45)
[2019-01-15] MEDS: HEPARIN SOD 5,000 UNIT/0.5 ML VIAL SQ SCH (05:54)
[2019-01-15] MEDS: METHADONE HCL 10 MG TAB PO SCH ×2 (05:54→11:16)
[2019-01-15 07:01] VITALS: BP 104/66; TEMP 98.1; O2SAT 98
[2019-01-15] MEDS: PYRIDOXINE HCL 50 MG TAB PO SCH (07:45)
[2019-01-15] MEDS: CETIRIZINE HCL 10 MG TABLET PO SCH (07:46)
[2019-01-15] MEDS: MAGNESIUM OXIDE 400 MG TAB PO SCH (07:46)
[2019-01-15] MEDS: cephALEXin 500 MG CAP PO SCH (07:46)
[2019-01-15] MEDS: FINASTERIDE 5 MG TAB PO SCH (07:46)
[2019-01-15] MEDS: BUDESONIDE/FORMOTEROL FUMARATE 160/4.5 60 PUFFS/INHALER INH SCH (07:46)
[2019-01-15] MEDS: DOCUSATE SODIUM 100 MG CAP PO SCH (07:47)
[2019-01-15] MEDS: DICLOFENAC SOD 1% GEL 100 GM TUBE EXT SCH (07:47)
[2019-01-15] MEDS: FUROSEMIDE 20 MG TAB PO SCH (07:47)
[2019-01-15 07:48] LABS: BUN Creatinine Ratio 24.7 (10-20); Calcium 9.5 mg/dl (8.5-10.1); Creatinine Clr Calc Pharmacy 88.1 ml/min; Est GFR (African American) 100.6; Est GFR (Non-African American) 86.8; Potassium 4.1 mmol/L (3.5-5.1)
[2019-01-15] MEDS: TIOTROPIUM BROMIDE 5 PUFF/90 MCG INH INH SCH (08:39)
[2019-01-15] MEDS ORDERED: predniSONE 20 MG TAB PO SCH (09:00)
[2019-01-15 11:09] VITALS: PULSE 78
--- NOTE | 2019-01-15 12:22 | XRay Report ---
XR foot LT min 3V routine CLINICAL HISTORY: 73 years-old Male presenting with plantar mid-foot pain. TECHNIQUE: Frontal, oblique, and lateral views of the left foot were obtained. COMPARISON: Correlation made to ankle radiographs from 12/03/2018. FINDINGS: Accessory ossicle along the lateral aspect of the calcaneal cuboid articulation as on prior radiograp hs. No acute fracture or malalignment. No advanced degenerative change. Diffuse soft tissue swelling and subcutaneous edema. Skin thickening along the dorsum of the foot. Swelling extends into the lower leg. IMPRESSION: 1. No acute osseous injury. 2. Nonspecific soft tissue swelling. Electronically signed by: Bobby Luna M.D. 01/15/2019 12:20 PM
[2019-01-18 10:20] LABS: Hepatitis A Antibody Total NON-REACTIVE (NON-REACTIVE); Rheumatoid Factor < 14 IU/ML (<14)
--- NOTE | 2019-01-23 22:45 | Discharge Summary ---
Date of Service date of admission - 01/09/19 date of discharge - 01/15/19 Admission HPI Per Admitting Provider 73 yo male with history of non-small cell lung CA, bladder CA with pelvic mets, HTN, chronic pain, COPD and chronic hypoxic respiratory failure on home O2 2-4L continuously who presents with pain in left foot as well as swelling and redness. He was hospitalized one month ago for a similar complaint but at that time the pain in swelling was more focused in his left knee. He was treated for presumed cellulitis at that time, treated with Rocephin, d/c home on Keflex. He completed the recommended course of antibiotics but says that his leg never felt that good. Continued to have pain and swelling. Two or three days ago he noticed the pain and swelling in left foot was more intense. Also with pain in left ankle. He says that the worst pain in in the ankle and the top of the foot. Nearly impossible to walk, put any weight on the joint. He has not found anything that helps the pain. No fever but he has experienced chills. His appetite has been poor for three days, no nausea or vomiting or diarrhea. He denies chest pain, cough. He always has some shortness of breath with COPD, wears 2L continuous and 4L on exertion. He denies any injuries to the foot or ankle. His feet are dry and cracked, this is chronic issue. In the ED his vitals are stable, found to have WBC of 15k, ESR is > 90 and CRP > 20. Normal BMP. Doppler left leg negative for DVT. He was given a dose of Rocephin and admission requested for the left foot and ankle pain. 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 2nd to OPDIVO chemotherapy for lung cancer Discharge Exam Constitutional no acute distress and no altered mental status ENMT external ear and nose normal, oropharynx normal Respiratory no respiratory distress Auscultation: no crackles and no wheezes Cardiovascular Rate/Rhythm: regular rate and regular rhythm Heart Sounds: normal S1 and normal S2; no murmur Vessels: posterior tibial pulses present and dorsalis pedis pulses present; no JVD Extremities: + edema (none on right; <1+ on left --- much improved.) Gastrointestinal (Abdomen) normal bowel sounds, soft, nontender, no hepatosplenomegaly Musculoskeletal minimal effusion left knee; minimal tenderness over left knee to palpation. minimal left mid-foot tenderness to palpation. minimal tenderness left ankle to palpation. Psychiatric A+Ox3, euthymic affect Discharge Data Allergies Allergy/AdvReac Type Severity Reaction Status Date / Time Bactrim Allergy Severe TONGUE Verified 12/02/17 08:11 SWELLS/FONG mupirocin Allergy Severe ANAPHYLAXIS Verified 01/09/19 16:05 sulfamethoxazole Allergy Severe TONGUE Verified 01/09/19 16:05 SWELLS/FONG trimethoprim Allergy Severe TONGUE Verified 01/09/19 16:05 SWELLS/FONG Iodinated Contrast- Oral and Allergy Intermediate HIVES/ITCHI Verified 01/09/19 16:05 IV Dye NG lisinopril Allergy Intermediate Tongue Verified 01/09/19 16:05 Swelling mustard Allergy Intermediate Hives, Verified 01/09/19 16:05 SOB, Itchy aspirin Allergy Mild ITCHY Verified 01/09/19 16:05 adhesive AdvReac Intermediate Tape - Rash Verified 01/09/19 16:05 Consultations Orthopedic Surgery ([facility]) Physical therapy Ordered Studies 1. Venous doppler left leg - negative for DVT. 2. CT left foot and ankle - no effusion, no fracture, no evidence of metastatic disease. Hospital Course (1) Polyarticular arthritis: Initially it was thought that the patient was suffering from a cellulitis of the distal left leg, foot and ankle. It became more clear that the issue was not of the skin but the patient's joints. The distal left leg redness was due to inflammation of his joints. Patient had had such for 6+ weeks. It was mainly large joints - left shoulder, left knee, left ankle, mid-foot on left, and later in the stay his right wrist. The polyarticular arthritis was immediately responsive to high-dose prednisone early in the hospitalization. However, once the prednisone was tapered to 20mg/day his symptoms quickly worsened. This could be a seronegative inflammatory arthropathy from his Opdivo. The literature well documents this type of adverse side effect from Opdivo. The literature also advised high-dose prednisone for this problem. Spoke with Dr Kieran Anand, the patient's oncologist, and he concurred with stopping the Opdivo. Spoke with Dr Dallin Lawler from rheumatology - he recommended high-dose prednisone for the suspected inflammatory arthritis from the Opdivo and advised follow-up with him in the rheumatology clinic. At discharge he was continued on prednisone 60mg/day. Opdivo has been discontinued. Will refer to Dr Lawler at [facility] rheumatology. Hep A, B, and C titers were negative. Rheumatoid factor was negative. Uric acid level was <6. No imaging study showed CPPD changes. Clinical history was not consistent with lyme's arthritis. Attempts at left knee arthrocentesis were made to rule out any other process however no fluid could be obtained from the knee. (2) Cellulitis: If he ever had cellulitis of distal left leg it fully resolved quicky. Retrospectively it is possible that the erythema was due to joint inflammation and not actually skin infection. He finished a course of IV/PO antibiotics prior to discharge. (3) Elevated troponin I level: suspect myocardial demand ischemia rather than ACS (4) Lung cancer: non small cell lung ca follows with Dr. 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 IgG is negative. doubt he has lyme's causing the joint issues. typically by the time lyme's causes joint inflammation/swelling the IgG is positive. additionally it would be unusual to cause POLYARTICULAR arthritis (usually monoarticular or oligoarticular). simply follow western blot - this was pending at discharge. 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 he received diabetes teaching via the DM educator. THIS IS A NEW DIAGNOSIS FOR HIM. a glucometer was given to him at discharge. in light of prednisone use and the potential for long-term use of such (weeks, perhaps months) I recommended once daily metformin xr for DM control. Total Time Total Time Spent Total Time Spent (In Minutes): 45 Total Time Includes: Examination of the Patient, Discharge Planning, Medication Reconciliation and Communication With Other Providers Discharge Plan Discharge Items Patient Disposition: Home - Home Health Services Reason For Visit: left foot/ankle pain and swelling Discharge Diagnosis: Suspected inflammatory arthritis as a result of your Opdivo chemotherapy. Discharge Goals: Decrease discomfort, Diagnostic testing, Improve disease control, Improve function, Increase independence, Learn about illness, Prevent disease and Therapeutic intervention Activity: As commented below Activity Comment: avoid excessive activities that make your joints feel worse Non-emergency contact: Primary Care Provider and Specialist Call non-emergency contact if: you have any medication questions, your symptoms worsen, your pain is not controlled, your pain is worsening and your temperature is above 100.5 Follow-up/Referrals: Kieran Anand DO [Physician] - (see Dr Anand within 2 weeks) Cristobal Simpson MD, [facility] [Physician] - (see Dr Simpson, ENT, for your right ear; please call his office to schedule an appointment) Dallin Lopez MD [Physician] - (please see Dr Lawler - rheumatology at [facility] - as soon as possible; if you do not hear from his office within the next week please contact them directly) Aylin Broderick PA-C [Primary Care Provider] - (see your family doctor within 5-7 days) Diet: Carb Consistent or DM2 Addtl Provider Instructions: You were admitted for severe left foot and ankle pain along with swelling of your legs. Initially there was concern for cellulitis (skin infection) of your left foot/leg. As your hospital stay went on it became more apparent that you were not suffering from infection but likely a severe form of arthritis (inflammation of your joints). It does not appear to be gout or pseudogout. Your hepatitis B and hepatitis C testing were negative. After looking at all available tests & imaging studies (x-rays, CAT scans, etc), and after speaking with Dr Anand and the color stripper, our suspicion is that your joints are inflamed because of Opdivo. This will require high-dose steroids for several weeks or longer. It also requires that you stop your Opdivo. Dr Anand is aware of this. Recommendations - 1. take prednisone 60mg once daily every morning with breakfast. This is your medication for the inflamed joints. Start this TOMORROW on 01/16/19. 2. may use voltaren gel (diclofenac) 4 grams to your joints every 6 hours as needed/desired. 3. take omeprazole 20mg once every morning on empty stomach to prevent stomach irritation from the prednisone. 4. take furosemide 20mg once daily for 5 days; start this TOMORROW on 01/16/19. This is a water pill to remove fluid/edema from the legs. Take ONLY for 5 days. 5. you have new-onset type 2 diabetes. You met with the consumer educator. The diabetes is mild. However, because you will be on prednisone, your sugars will run high from the steroid. Therefore I am recommending you take metformin xr 500mg once daily with BREAKFAST. The most common side effect from this medication is that of stomach upset, excess gas, etc. 6. continue your oxygen at 2 liters at rest and 4 liters with activity/exertion. 7. follow-up -- * see Dr Lawler from [facility] as soon as possible; his office should be contacting you with an appointment; this is for your joints * see separate section for additional appointment information 8. DO NO TAKE ANY FURTHER OPDIVO. Return to [facility] if - * you have fevers over 100.5 degrees * you cannot walk/bear weight because of worsening joint pains (know that your joints will not fully improve for days/weeks if the Opdivo did indeed cause this problem) * you have worsening shortness of breath * any other concerns Prescriptions: New prednisone 20 mg Tablet 60 mg PO QAM 30 Days Qty: 90 RF: 0 diclofenac sodium [Voltaren] 1 % Gel 4 applic EXT QID PRN (Reason: joint pain) Qty: 1 RF: 0 omeprazole 20 mg capsule,delayed release(DR/EC) 20 mg PO DAILY Qty: 30 RF: 2 metformin 500 mg tablet extended release 24 hr 500 mg PO DAILY Qty: 30 RF: 5 Continued cholecalciferol (vitamin D3) 400 unit capsule 400 unit PO DAILY RF: 0 atorvastatin 80 mg Tablet 80 mg PO PM RF: 0 ascorbic acid (vitamin C) [Vitamin C] 1,000 mg Tablet 1 g PO QAM RF: 0 cyanocobalamin (vitamin B-12) [Vitamin B-12] 100 mcg Tablet 100 mcg PO QAM RF: 0 methadone 10 mg Tablet 10 mg PO QID RF: 0 terazosin 2 mg Capsule 2 mg PO QPM RF: 0 docusate sodium 100 mg Capsule 100 mg PO BID RF: 0 pyridoxine (vitamin B6) [Vitamin B-6] 100 mg Tablet 100 mg PO QAM RF: 0 albuterol sulfate 90 mcg/actuation Hfa Aerosol Inhaler 2 puff INHALATION Q4H PRN (Reason: Shortness Of Breath) RF: 0 finasteride 5 mg Tablet 5 mg PO QAM RF: 0 Spiriva with HandiHaler 18 mcg Capsule, W/Inhalation Device 1 cap INHALATION QAM RF: 0 Symbicort 160-4.5 mcg/actuation Hfa Aerosol Inhaler 2 puff INHALATION BID RF: 0 magnesium oxide 400 mg magnesium Capsule 400 mg PO BID RF: 0 sennosides 8.6 mg Tablet 17.2 mg PO BID PRN (Reason: Constipation) RF: 0 amlodipine [Norvasc] 5 mg tablet 5 mg PO HS RF: 0 albuterol sulfate 1.25 mg/3 mL Solution For Nebulization 1.25 mg INHALATION QID RF: 0 lidocaine [Lidoderm] 5 % adhesive patch,medicated 1 patch TOP DAILY PRN (Reason: pain) Qty: 15 RF: 1 cetirizine 5 mg Tablet 5 mg PO DAILY RF: 0 Stand-Alone Forms: [employer]/Other Patient Handouts: Diabetes Residential Complications, Diabetes Type 2 Coping, Diabetes Type 2 Oral Meds, Diabetes Healthy Meals, Diabetes Carbs, Diabetes Exercise Benefits, Diabetes Exercise Get Started, Diabetes Activity Tips, Diabetes Manage A1C Test Discharge Orders: Discharge Order (Routine); Ordered 01/15/19 Ordered By: Sherif Lawler Admission Data Admit Date/Time: 01/09/19 17:34 Attending Provider: Sherif Lawler Admit Provider: Bronson Dial Primary Care Provider: Aylin Broderick Other Providers: Bronson Dial ; Grabiel Garrett Service: Telemetry Medical Other Interventions: Discharge Summary Assessment (RN) Last Done: 01/15/19 11:08 Pending Studies at Discharge: Yes Studies:: lyme's disease testing, hepatitis testing DC Date/Time DO NOT enter until pt leaves facility: 01/15/19 13:00
[2019-01-24 13:50] LABS: 18KDIGG Band NONREACTIVE (NONREACTIVE); 23KDIGG Band NONREACTIVE (NONREACTIVE); 23KDIGM Band REACTIVE (NONREACTIVE); 28KDIGG Band NONREACTIVE (NONREACTIVE); 30KDIGG Band NONREACTIVE (NONREACTIVE); 39KDIGG Band NONREACTIVE (NONREACTIVE); 39KDIGM Band NONREACTIVE (NONREACTIVE); 41KDIGG Band NONREACTIVE (NONREACTIVE); 41KDIGM Band NONREACTIVE (NONREACTIVE); 45KDIGG Band NONREACTIVE (NONREACTIVE); 58KDIGG Band NONREACTIVE (NONREACTIVE); 66KDIGG Band NONREACTIVE (NONREACTIVE); 93KDIGG Band NONREACTIVE (NONREACTIVE); Lyme Antibodies, WB IgG NEGATIVE (NEGATIVE); Lyme Antibodies, WB IgM NEGATIVE (NEGATIVE)
== END 2019-01-15 13:00 | disposition home health service (06) | DRG 603 ==
LOC: ED 12:16 → 2N 17:34 → SUATTDRO 17:34 → 2N 19:00

== ENCOUNTER 2019-02-08 10:35 | Inpatient (IN) ==
[2019-02-08] MEDS ORDERED: ALBUT/IPRATROP 3MG/0.5MG NEB 3 ML VIAL NEB ONE (11:42)
[2019-02-08] MEDS ORDERED: methylPREDNISolone 60 MG in SYRINGE 1 ML IV STA (11:42)
[2019-02-08 11:53] LABS: Basophils # (auto) 0.02 K/uL (0-0.2); Basophils % (auto) 0.2 %; Eosinophils # (auto) 0.06 K/uL (0-0.5); Eosinophils % (auto) 0.6 %; Hematocrit (blood only) 34.2 % (42-52); Hemoglobin 10.6 g/dL (14.0-18.0); Immature Granulocytes % (auto) 2.8 %; Lymphocytes # (auto) 0.83 K/uL (1.2-3.4); Lymphocytes % (auto) 7.8 %; Mean Corpuscular Hemoglobin 28.1 pg (25-34); Mean Corpuscular Volume 90.7 fL (80-100); Mean Platelet Volume 9.6 fL (7.4-10.4); Monocytes # (auto) 0.67 K/uL (0.11-0.59); Monocytes % (auto) 6.3 %; Neutrophils % (auto) 82.3 %; Platelet Count 171 K/uL (130-400); RDW Coefficient of Variation 17.2 % (11.5-14.5); RDW Standard Deviation 57.5 fL (36.4-46.3); Red Blood Count 3.77 M/uL (4.7-6.1); White Blood Count 10.68 K/uL (4.8-10.8)
--- NOTE | 2019-02-08 11:57 | XRay Report ---
SINGLE VIEW CHEST CLINICAL HISTORY: Atypical chest pain. FINDINGS: An AP, portable, upright chest radiograph is compared to study dated 01/09/2019 and correlat ed with chest CT dated 06/30/2018. The examination is degraded by portable technique and patient rotat ion. The heart is top normal for projection noting atherosclerotic calcification of the thoracic aor ta. Enlargement of the central pulmonary arteries suggests pulmonary artery hypertension. The pulmona ry vascular structures noncongested. Advanced emphysema and chronic interstitial thickening are simil ar to previous. There is bibasilar scarring/atelectasis. No airspace consolidation is seen typical fo r pneumonia and there is no large pleural effusion. A large calcified granuloma is again seen in the right midlung. No pneumothorax is seen. The skeletal structures are osteopenic. There are numerous he aled bilateral rib fractures. A Hill-Sachs deformity is suggested in the right shoulder. IMPRESSION: 1. Advanced emphysematous change with no acute cardiopulmonary abnormality identified. 2. Pulmonary lesions seen by CT on 06/30/2018 cannot be visualized by x-ray. Electronically signed by: Reinaldo Monge M.D. 02/08/2019 11:56 AM
[2019-02-08] MEDS ORDERED: methylPREDNISolone 125 MG/2 ML VIAL ONE (12:06)
[2019-02-08 12:16] LABS: Alanine Aminotransferase 37 U/L (12-78); Albumin Level 2.7 gm/dl (3.4-5.0); Aspartate Aminotransferase 16 U/L (15-37); BUN Creatinine Ratio 28.8 (10-20); Blood Urea Nitrogen 23 mg/dl (7-18); Calcium 8.7 mg/dl (8.5-10.1); Carbon Dioxide 30 mmol/L (21-32); Chloride 100 mmol/L (98-107); Creatinine Clr Calc Pharmacy 98.6 ml/min; Est GFR (African American) 104.2; Est GFR (Non-African American) 89.9; Glucose 147 mg/dl (70-99); Lipase 148 U/L (73-393); Sodium 136 mmol/L (136-145)
[2019-02-08 12:21] LABS: Albumin Globulin Ratio 0.7 (0.9-2); Alkaline Phosphatase 74 U/L (45-117); Bilirubin,Total 0.5 mg/dl (0.2-1); Creatine Kinase 50 U/L (39-308); Creatine Kinase MB 2.5 ng/ml (0.5-3.6); Globulin 3.9 gm/dl (2.5-4.0); Total Protein 6.6 gm/dl (6.4-8.2); Troponin I < 0.015 ng/ml (0-0.045)
--- NOTE | 2019-02-08 17:10 | History & Physical Report ---
Date of Service February 08, 2019 Assessment & Plan (1) COPD exacerbation: - Presented with acute SOB -- possibly related to COPD exacerbation. - CXR showed advanced emphysema, otherwise negative. - Recently started course of Azithromycin -- will complete course this evening, 250 mg x 1 dose; hold further abx. - Solu-Medrol 40 mg IV q6hr. - Duonebs q6hrWA; Albuterol prn wheezing/SOB. - Continue home Spiriva and Symbicort as prescribed. - Low threshold to consider further work up if no improvement in SOB with COPD treatment -- consider pulmonary emboli in setting of lung cancer vs. immunotherapy related interstitial lung disease. (2) Chronic respiratory failure with hypoxia: - Requires 2L at rest, 4L via exertion -- currently using 3L via NC at rest. - Continue to wean as tolerated. (3) Polyarticular arthritis: - Recently admitted at end of December 2018; on tapering course of Prednisone per concrete buster operator. - Will hold Prednisone due to Solu-medrol IV dosing (see above). - On Pred 20 mg daily as outpt prior to admission. (4) DM w/o complication type II: - Hgb A1C was 7.2 in December 2018; holding home Metformin. - SSI with gluc checks ac/hs. - Consider pharmacy consult for steroid induced hyperglycemia. (5) Lung cancer: - Most recently received Opdivo -- follows with Dr. Anand. - Immunotherapy now d/c'ed due to recently diagnosed polyarticular arthritis. - Will need f/u with onc as outpatient. (6) Bladder cancer metastasized to pelvic region: - S/p multiple procedures; currently in remission. (7) BPH with obstruction/lower urinary tract symptoms: - Continue home Terazosin and Finasteride as prescribed. (8) Hypertension: - Continue home Amlodipine 5 mg daily. (9) Hyperlipidemia: - Continue atorvastatin as prescribed. (10) Chronic pain syndrome: - Continue home Methadone 10 mg QID. - Continue Colace 100 mg BID for bowel regimen with Miralax prn. (11) DVT prophylaxis: - SCDs; Heparin 5,000 units q12hr. TEDs. Dispo: Med/surg with tele for treatment of SOB related to COPD exacerbation. FULL CODE -- discussed with pt. at bedside. History of Present Illness Chief Complaint: Shortness of breath Primary Care Provider: NO PCP Mr. Shetty is a 73 year old male with past medical history of COPD, Stage IV Lung Cancer, Bladder cancer, HTN, HLD, BPH who presented with shortness of breath. He was admitted at the end of December for polyarticular arthritis -- pt. is on a tapering dose of Prednisone, currently at 20 mg PO daily. He woke up this morning with acute SOB. He walked to the bathroom and had to use his rescue inhaler after a few steps. Pt. used his rescue inhaler after traveling back from the bathroom as well. He had SOB both at rest and with exertion. Pt. uses ronic supplemental O2 at home -- 2L at rest, 4L with exertion. He had a recently diagnosed cellulitis of lower extremities; wound care has been completed by home health nurses. Redness/wounds now resolved but he has ongoing bilateral edema. Pt. reports he started taking Azithromycin x 5 days and was scheduled to complete his last dose this evening -- he cannot recall who started this med, believes it was his concrete buster operator. Denies headache, lightheadedness, chest pain, pain into jaw or neck, nausea/vomiting, constipation or diarrhea, dysuria or hematuria, abd pain. ER course: CXR showed advanced emphysema, no acute change identified. Received Duoneb x 1 treatment and Solu-medrol 60 mg IV. Will admit for COPD exacerbation. Allergies Allergy/AdvReac Type Severity Reaction Status Date / Time Bactrim Allergy Severe TONGUE Verified 12/02/17 08:11 SWELLS/FONG mupirocin Allergy Severe ANAPHYLAXIS Verified 02/08/19 11:39 sulfamethoxazole Allergy Severe TONGUE Verified 02/08/19 11:39 SWELLS/FONG trimethoprim Allergy Severe TONGUE Verified 02/08/19 11:39 SWELLS/FONG Iodinated Contrast Media Allergy Intermediate HIVES/ITCHI Verified 02/08/19 11:39 NG lisinopril Allergy Intermediate Tongue Verified 02/08/19 11:39 Swelling mustard Allergy Intermediate Hives, Verified 02/08/19 11:39 SOB, Itchy aspirin Allergy Mild ITCHY Verified 02/08/19 11:39 adhesive AdvReac Intermediate Tape - Rash Verified 02/08/19 11:39 Home Medications Home Medications Medication Instructions Recorded Confirmed Type Spiriva with HandiHaler 1 cap INHALATION QAM 03/30/18 02/08/19 History Symbicort 2 puff INHALATION BID 03/30/18 02/08/19 History albuterol sulfate 2 puff INHALATION Q4H PRN 03/30/18 02/08/19 History ascorbic acid (vitamin C) [Vitamin 1 g PO QAM 03/30/18 02/08/19 History C] atorvastatin 80 mg PO PM 03/30/18 02/08/19 History cyanocobalamin (vitamin B-12) 100 mcg PO QAM 03/30/18 02/08/19 History [Vitamin B-12] docusate sodium 100 mg PO BID 03/30/18 02/08/19 History finasteride 5 mg PO QAM 03/30/18 02/08/19 History methadone 10 mg PO QID 03/30/18 02/08/19 History pyridoxine (vitamin B6) [Vitamin 100 mg PO QAM 03/30/18 02/08/19 History B-6] terazosin 2 mg PO QPM 03/30/18 02/08/19 History cholecalciferol (vitamin D3) 400 400 unit PO DAILY cap 12/01/18 02/08/19 History unit capsule magnesium oxide 400 mg PO BID 12/03/18 02/08/19 History amlodipine [Norvasc] 5 mg PO HS 12/07/18 02/08/19 History sennosides 17.2 mg PO BID PRN 12/07/18 02/08/19 History albuterol sulfate 1.25 mg INHALATION QID 12/28/18 02/08/19 History lidocaine [Lidoderm] 1 patch TOP DAILY PRN #15 ea 12/28/18 02/08/19 Rx cetirizine 5 mg PO DAILY 01/09/19 02/08/19 History diclofenac sodium [Voltaren] 4 applic EXT QID PRN #1 tube 01/15/19 02/08/19 Rx metformin 500 mg PO DAILY #30 tab 01/15/19 02/08/19 Rx omeprazole 20 mg PO DAILY #30 cap 01/15/19 02/08/19 Rx prednisone 0 mg PO UD 02/08/19 02/08/19 History Past Med/Surg History Medical History Chronic respiratory failure (Chronic) COPD (chronic obstructive pulmonary disease) (Chronic) Opioid dependence (Chronic) Bladder cancer metastasized to pelvic region (Acute) BPH (benign prostatic hyperplasia) (Chronic) COPD (chronic obstructive pulmonary disease) (Chronic) Elevated PSA (Chronic) H/O malignant neoplasm of skin (Chronic) Hyperlipidemia (Chronic) Non-small cell lung cancer (Chronic) CURRENTLY BEING TREATED W/ CHEMOTHERAPY Stroke (Chronic) 2009 - NO PERIPHERAL VISION RT SIDE - NO NEUROLOGIST Urothelial carcinoma (Chronic) H/O hematuria (Resolved) Hypertension (Resolved) Acute leg pain (Inactive) Left leg swelling (Inactive) Bladder cancer CURRENTLY BEING TREATED W/ CHEMOTHERAPY Chronic back pain Constipation Inguinal hernia BL Osteoarthritis Umbilical hernia Surgical History H/O prostate biopsy (Acute) H/O Moh's micrographic surgery for skin cancer (Resolved) H/O hand surgery (Resolved) H/O prostatectomy History of bronchoscopy W/ BIOPSY History of colonoscopy History of surgery TRANSURETHRAL RESECTION OF BLADDER TUMOR X 3 History of surgery PLACEMENT OF MEDIPORT W/ REMOVAL History of ureter stent W/ REMOVAL Family History Father , 69yo [place], DM, arthritis, HTN Diabetes Cardiac disorder Hypertension Mother , age 84 from stroke Cardiac disorder Hypertension Brother Diabetes Cardiac disorder Hypertension Cancer, face Sister History of kidney cancer Hypertension Unknown Lung cancer Leukemia Basal cell carcinoma Social History Preferred Language: Frisian Communication Ability: Effective Visual Impairment: No Limitations Hearing Ability: Junior Automation Engineer Required: No Beliefs That Will Affect Care: None marital status: marital status details: 1 son and 3 daughters Current Living Situation: Alone Current Living Situation Comment: apartment current occupational status: retired current occupation: [employer] Other Information That Helps Us Care for You: No Feels Safe at Home: Yes Safety Concerns: Feels Safe At This Time Smoking Status: Former smoker Tobacco Type: cigarettes ; Cigarettes Per Day: 1 ppd x 60 years; quit 1 month ago ; Smoking End Date: 2018 ; Second Hand Exposure: No ; Hx Alcohol Use: No Hx Substance Use: No caffeine: Yes (3 cups/day) during the past year weight has: decreased > 10 lbs Review of Systems Review of Systems: All systems reviewed & are unremarkable except as noted in HPI & below Constitutional: + fatigue and + weakness; no fever, no chills and no anorexia Respiratory: + dyspnea, + dyspnea on exertion and + wheezing; no cough Cardiovascular: + edema; no chest pain, no palpitations, no lightheadedness and no syncope Gastrointestinal: no abdominal pain, no nausea, no vomiting, no constipation and no diarrhea/loose stools Genitourinary: no dysuria, no difficulty urinating, no urinary frequency and no hematuria Musculoskeletal: + swelling; no back pain and no joint pain Integumentary: no non-healing lesions Allergy / Immunological: no rash Physical Exam Physical Exam: General: Resting comfortably HEENT: NC/AT; PERRLA with EOMI; [place] conjunctiva, MMM. No erythema of posterior pharynx Neck: Supple and nontender Cardiac: RRR Lungs: on 3L via NC; mild scattered wheezing noted throughout. Abdomen: Bowel normoactive X 4; Nontender to palpation Extremities: Warm. +2 LLE edema, +1-2 RLE edema. Dressing in place on LLE, no wounds were noted underneath. Neuro: No focal weakness Skin: No rash Constitutional: WD/WN, vitals as above Eyes: normal visual kan by confrontation and + anicteric sclerae Neck: normal visual inspection and trachea midline Respiratory: normal respiratory effort (although occasionally slight SOB with prolonged speaking); no respiratory distress Auscultation: + wheezes (diffuse and minimal on expiration only); no crackles Cardiovascular: Rate/Rhythm: regular rate and regular rhythm Gastrointestinal (Abdomen): Inspection/Auscultation: + abdomen distended Percussion/Palpation: + abdomen tender (R lateral wall) and abdomen soft Musculoskeletal: Head/Neck/Chest: normocephalic and head atraumatic b/l 2+ pitting LE edema, + pedal pulses Skin: no rashes, warm and dry Neurologic: awake; not confused Speech / Cognition: normal speech Psychiatric: A+Ox3, euthymic affect Lymphatic: Exam as done by Kandice Puri DO Results & Data Vital Signs (Past 12 Hours) Vital Signs Temp Pulse Pulse Resp BP BP Pulse Ox 02/08/19 14:04 101 H 22 127/63 95 02/08/19 12:12 83 18 127/68 100 02/08/19 11:56 93 H 16 96 02/08/19 11:53 94 02/08/19 11:04 37.2 C 103 H 19 133/73 93 02/08/19 11:03 90 24 94 Laboratory Results 02/08/19 02/08/19 Range/Units 11:11 11:11 WBC 10.68 (4.8-10.8) K/uL RBC 3.77 L (4.7-6.1) M/uL Hgb 10.6 L (14.0-18.0) g/dL Hct 34.2 L (42-52) % MCV 90.7 (80-100) fL MCH 28.1 (25-34) pg MCHC 31.0 L (32-36) g/dL RDW Std Deviation 57.5 H (36.4-46.3) fL RDW Coeff of James 17.2 H (11.5-14.5) % Plt Count 171 (130-400) K/uL MPV 9.6 (7.4-10.4) fL Immature Gran % (Auto) 2.8 % Neut % (Auto) 82.3 % Lymph % (Auto) 7.8 % [place] % (Auto) 6.3 % Eos % (Auto) 0.6 % Baso % (Auto) 0.2 % Immature Gran # (Auto) 0.30 H (0.00-0.02) K/uL Neut # (Auto) 8.80 H (1.4-6.5) K/uL Lymph # (Auto) 0.83 L (1.2-3.4) K/uL [place] # (Auto) 0.67 H (0.11-0.59) K/uL Eos # (Auto) 0.06 (0-0.5) K/uL Baso # (Auto) 0.02 (0-0.2) K/uL Sodium 136 (136-145) mmol/L Potassium 4.0 (3.5-5.1) mmol/L Chloride 100 (98-107) mmol/L Carbon Dioxide 30 (21-32) mmol/L Anion Gap 6.0 (3-11) BUN 23 H (7-18) mg/dl Creatinine 0.80 (0.6-1.4) mg/dl Est Cr Clr Drug Dosing 98.6 ml/min Est GFR ( Amer) 104.2 Est GFR (Non-Af Amer) 89.9 BUN/Creatinine Ratio 28.8 H (10-20) Glucose 147 H (70-99) mg/dl Calcium 8.7 (8.5-10.1) mg/dl Total Bilirubin 0.5 (0.2-1) mg/dl AST 16 (15-37) U/L ALT 37 (12-78) U/L Alkaline Phosphatase 74 (45-117) U/L Total Creatine Kinase 50 (39-308) U/L CK-MB (CK-2) 2.5 (0.5-3.6) ng/ml CK/CKMB % Calc 5.0 H (0-3.0) Troponin I < 0.015 (0-0.045) ng/ml Total Protein 6.6 (6.4-8.2) gm/dl Albumin 2.7 L (3.4-5.0) gm/dl Globulin 3.9 (2.5-4.0) gm/dl Albumin/Globulin Ratio 0.7 L (0.9-2) Lipase 148 (73-393) U/L Code Status & VTE Plan Code Status FULL CODE VTE Prophylaxis Plan VTE Prophylaxis will be ordered: Yes Supervising Physician Co-Signing Physician Notes Pt seen and examined by me. Denies chest pain. Pt has had worsening SOB recently. Has been on steroids for polyarticular arthritis, tapering. Recent zpack use. Initially thought maybe related to cellulitis but starts maybe a URI. He is uncertain but only has one dose left. Abd pain that started in the ED with rolling over and reaching for something. R lateral wall. Has been bloated for several days. No c/d. Tolerating PO without issue. Agree with HPI/ROS as noted by PA See above for my exam in PE section Agree with plan as outlined above COPD exacerbaton, some improvement with ED tx Nebs, steroids Abd pain--seems more abd wall pain, possibly strain given abd girth and exacerbated with pulling movement==monitor for now No abd bowel issues, n/v PG Care Time/CCT Total # of Minutes Spent Total Time Spent with Patient: Total time spent is greater than 50% in coordination of care (as documented) at patient's floor/unit and/or counseling patient: (1) Hyperlipidemia Hyperlipidemia type: mixed hyperlipidemia Qualified Code(s): E78.2 - Mixed hyperlipidemia (2) Lung cancer Laterality: unspecified laterality Lung location: unspecified part of lung Qualified Code(s): C34.90 - Malignant neoplasm of unspecified part of unspecified bronchus or lung (3) Hypertension Hypertension type: essential hypertension Qualified Code(s): I10 - Essential (primary) hypertension
[2019-02-08] MEDS: METHADONE HCL 10 MG TAB PO SCH ×2 (17:55→20:33)
[2019-02-08] MEDS: AZITHROMYCIN 250 MG TAB PO ONE ×2 (17:55→20:43)
[2019-02-08] MEDS ORDERED: ALBUT/IPRATROP 3MG/0.5MG NEB 3 ML VIAL NEB SCH (18:00)
[2019-02-08] MEDS ORDERED: methylPREDNISolone 40 MG in SYRINGE 0 ML IV SCH (18:00)
[2019-02-08] MEDS ORDERED: GLUCAGON FOR INJ 1 MG VIAL SQ PRN (18:46)
[2019-02-08] MEDS ORDERED: CARBOHYDRATES FOR HYPOGLYCEMIA PO PRN (18:46)
[2019-02-08] MEDS ORDERED: DEXTROSE 50% 50 ML SYRINGE IV PRN (18:46)
[2019-02-08] MEDS ORDERED: POLYETHYLENE (MIRALAX) 17 GM PACK PO PRN (18:46)
[2019-02-08] MEDS ORDERED: GLUCOSE 40% GEL 15 GM TUBE PO PRN (18:46)
[2019-02-08] MEDS ORDERED: ALBUTEROL 0.083% NEBU SOLN 3 ML VIAL NEB PRN (18:46)
[2019-02-08] MEDS ORDERED: SENNA 8.6 MG TAB PO PRN (18:46)
[2019-02-08] MEDS ORDERED: GLUCOSE 10 TABS/TUBE PO PRN (18:46)
[2019-02-08] MEDS: ATORVASTATIN 40 MG TAB PO SCH (20:22)
[2019-02-08] MEDS: AMLODIPINE BESYLATE 5 MG TAB PO SCH (20:22)
[2019-02-08] MEDS: TERAZOSIN HCL 1 MG CAP PO SCH (20:23)
[2019-02-08] MEDS: HEPARIN SOD 5,000 UNIT/0.5 ML VIAL SQ SCH (20:24)
[2019-02-08] MEDS: DOCUSATE SODIUM 100 MG CAP PO SCH (20:24)
[2019-02-08] MEDS: ALBUT/IPRATROP 3MG/0.5MG NEB 3 ML VIAL NEB SCH (20:25)
[2019-02-08] MEDS: methylPREDNISolone 40 MG in SYRINGE 0 ML IV SCH (20:36)
[2019-02-08] MEDS: INSULIN ASPART 100 UNITS/ML 3 ML PEN SC SCH (20:38)
[2019-02-08] MEDS: BUDESONIDE/FORMOTEROL FUMARATE 160/4.5 60 PUFFS/INHALER INH SCH (20:40)
[2019-02-09] MEDS: METHADONE HCL 10 MG TAB PO SCH ×5 (00:25→23:15)
[2019-02-09] MEDS: methylPREDNISolone 40 MG in SYRINGE 0 ML IV SCH ×4 (02:10→20:14)
[2019-02-09 05:52] LABS: Hematocrit (blood only) 33.3 % (42-52); Hemoglobin 10.5 g/dL (14.0-18.0); Mean Corpuscular Hemoglobin 28.3 pg (25-34); Mean Corpuscular Hgb Conc 31.5 g/dL (32-36); Mean Corpuscular Volume 89.8 fL (80-100); Mean Platelet Volume 9.1 fL (7.4-10.4); Platelet Count 159 K/uL (130-400); RDW Coefficient of Variation 17.2 % (11.5-14.5); RDW Standard Deviation 56.5 fL (36.4-46.3); Red Blood Count 3.71 M/uL (4.7-6.1); White Blood Count 10.94 K/uL (4.8-10.8)
[2019-02-09 06:01] LABS: Prothrombin Time 10.6 Seconds (9.0-12.0)
[2019-02-09 06:22] LABS: BUN Creatinine Ratio 26.3 (10-20); Calcium 8.9 mg/dl (8.5-10.1); Creatinine Clr Calc Pharmacy 83.9 ml/min; Est GFR (African American) 94.2; Est GFR (Non-African American) 81.2
[2019-02-09] MEDS: ALBUT/IPRATROP 3MG/0.5MG NEB 3 ML VIAL NEB SCH ×3 (07:18→19:44)
[2019-02-09] MEDS: DOCUSATE SODIUM 100 MG CAP PO SCH ×2 (08:22→20:14)
[2019-02-09] MEDS: PANTOprazole 40 MG TAB PO SCH (08:23)
[2019-02-09] MEDS: FINASTERIDE 5 MG TAB PO SCH (08:23)
[2019-02-09] MEDS: TIOTROPIUM BROMIDE 5 PUFF/90 MCG INH INH SCH (08:24)
[2019-02-09] MEDS: BUDESONIDE/FORMOTEROL FUMARATE 160/4.5 60 PUFFS/INHALER INH SCH ×2 (08:25→20:17)
[2019-02-09] MEDS: HEPARIN SOD 5,000 UNIT/0.5 ML VIAL SQ SCH ×2 (08:26→20:15)
[2019-02-09 08:29] LABS: Ferritin 810.4 ng/ml (8-388)
[2019-02-09] MEDS: INSULIN ASPART 100 UNITS/ML 3 ML PEN SC SCH ×4 (08:29→20:27)
--- NOTE | 2019-02-09 12:34 | Hospitalist Progress Note ---
Date of Service February 09, 2019 Assessment & Plan (1) COPD exacerbation: - Presented with acute SOB -- likely related to COPD exacerbation. Breathing is slightly improved today, not back at baseline yet. - CXR showed advanced emphysema, otherwise negative. - Recently started course of Azithromycin -- completed course of abx on 02/08/19. - Solu-Medrol 40 mg IV q6hr - will taper as tolerated. - Duonebs q6hrWA; Albuterol prn wheezing/SOB. - Continue home Spiriva and Symbicort as prescribed. - Consider further work up if no improvement in SOB with conservative COPD treatment -- consider pulmonary emboli in setting of lung cancer vs. immunotherapy related interstitial lung disease. (2) Chronic respiratory failure with hypoxia: - Requires 2L at rest, 4L via exertion -- currently using 4L via NC at rest. - Wean as tolerated. (3) Polyarticular arthritis: - Recently admitted at end of December 2018; on tapering course of Prednisone per adjuster arbitrator. - Will hold Prednisone due to Solu-medrol IV (see above). - On Pred 20 mg daily as outpt prior to admission. (4) DM w/o complication type II: - Hgb A1C was 7.2 in December 2018; holding home Metformin. - SSI with gluc checks ac/hs - will increase due to hyperglycemia, likely steroid induced. - Consider pharmacy consult. (5) Lung cancer: - Most recently received Opdivo -- follows with Dr. Anand. - Immunotherapy now d/c'ed due to recently diagnosed polyarticular arthritis. - Will need f/u with onc as outpatient. (6) Bladder cancer metastasized to pelvic region: - S/p multiple procedures; currently in remission. (7) BPH with obstruction/lower urinary tract symptoms: - Continue home Terazosin and Finasteride as prescribed. (8) Hypertension: - Continue home Amlodipine 5 mg daily. (9) Hyperlipidemia: - Continue Atorvastatin as prescribed. (10) Chronic pain syndrome: - Continue home Methadone 10 mg QID. - Continue Colace 100 mg BID for bowel regimen with Miralax prn. (11) Anemia: - Baseline hgb ~10-11. - Iron studies c/w anemia of chronic disease. (12) DVT prophylaxis: - SCDs; Heparin 5,000 units q12hr. TEDs. Dispo: Treatment of COPD exacerbation. PT/OT evaluation pending. Supervising Physician Co-Signing Physician Notes Chart reviewed, case discussed with Yareli Zee PAC. Agree with decision making and plan. Care as above. Subjective Pt. is doing well overall. He states shortness of breath is improving -- he has increased SOB with exertion but has not had to use rescue inhaler. He denies chest pain, nausea/vomiting, abd pain. Review of Systems Review of Systems: All systems reviewed & are unremarkable except as noted in HPI & below Constitutional: no fever, no chills, no fatigue, no weakness and no anorexia Respiratory: + dyspnea on exertion; no cough, no dyspnea and no wheezing Cardiovascular: no chest pain, no palpitations and no edema Gastrointestinal: no abdominal pain, no nausea and no constipation Genitourinary: no difficulty urinating Musculoskeletal: no back pain and no joint pain Integumentary: no non-healing lesions Physical Exam Physical Exam: General: Resting comfortably HEENT: NC/AT; PERRLA with EOMI; [place] conjunctiva, MMM. No erythema of posterior pharynx Neck: Supple and nontender Cardiac: RRR Lungs: on 4L via NC; diminished throughout. Abdomen: Bowel normoactive X 4; Nontender to palpation Extremities: Warm. +1 bilat LE edema. Neuro: No focal weakness Skin: No rash Results & Data Vital Signs (Past 12 Hours) Vital Signs Temp Pulse Pulse Resp BP Pulse Ox 02/09/19 12:17 36.3 C L 100 H 20 132/69 94 02/09/19 08:45 77 02/09/19 07:38 36.7 C 80 18 132/74 96 02/09/19 07:18 78 18 97 02/09/19 03:42 36.4 C L 84 19 114/69 97 Laboratory Results 02/09/19 02/09/19 02/09/19 Range/Units 12:03 07:38 05:38 WBC (4.8-10.8) K/uL RBC (4.7-6.1) M/uL Hgb (14.0-18.0) g/dL Hct (42-52) % MCV (80-100) fL MCH (25-34) pg MCHC (32-36) g/dL RDW Std Deviation (36.4-46.3) fL RDW Coeff of James (11.5-14.5) % Plt Count (130-400) K/uL MPV (7.4-10.4) fL PT (9.0-12.0) Seconds INR (0.9-1.1) Sodium (136-145) mmol/L Potassium (3.5-5.1) mmol/L Chloride (98-107) mmol/L Carbon Dioxide (21-32) mmol/L Anion Gap (3-11) BUN (7-18) mg/dl Creatinine (0.6-1.4) mg/dl Est Cr Clr Drug Dosing ml/min Est GFR ( Amer) Est GFR (Non-Af Amer) BUN/Creatinine Ratio (10-20) Glucose (70-99) mg/dl POC Glucose 161 H 169 H (70-99) Calcium (8.5-10.1) mg/dl Iron 50 (35-175) mcg/dl TIBC 265 (250-450) mcg/dl Transferrin 218 (200-360) mg/dl Transferrin % Sat 16 L (20-50) % Ferritin 810.4 H (8-388) ng/ml 02/09/19 02/09/19 02/09/19 Range/Units 05:38 05:38 05:38 WBC 10.94 H (4.8-10.8) K/uL RBC 3.71 L (4.7-6.1) M/uL Hgb 10.5 L (14.0-18.0) g/dL Hct 33.3 L (42-52) % MCV 89.8 (80-100) fL MCH 28.3 (25-34) pg MCHC 31.5 L (32-36) g/dL RDW Std Deviation 56.5 H (36.4-46.3) fL RDW Coeff of James 17.2 H (11.5-14.5) % Plt Count 159 (130-400) K/uL MPV 9.1 (7.4-10.4) fL PT 10.6 (9.0-12.0) Seconds INR 1.0 (0.9-1.1) Sodium 137 (136-145) mmol/L Potassium 4.0 (3.5-5.1) mmol/L Chloride 100 (98-107) mmol/L Carbon Dioxide 28 (21-32) mmol/L Anion Gap 9.0 (3-11) BUN 25 H (7-18) mg/dl Creatinine 0.94 (0.6-1.4) mg/dl Est Cr Clr Drug Dosing 83.9 ml/min Est GFR ( Amer) 94.2 Est GFR (Non-Af Amer) 81.2 BUN/Creatinine Ratio 26.3 H (10-20) Glucose 176 H (70-99) mg/dl POC Glucose (70-99) Calcium 8.9 (8.5-10.1) mg/dl Iron (35-175) mcg/dl TIBC (250-450) mcg/dl Transferrin (200-360) mg/dl Transferrin % Sat (20-50) % Ferritin (8-388) ng/ml 02/08/19 Range/Units 20:35 WBC (4.8-10.8) K/uL RBC (4.7-6.1) M/uL Hgb (14.0-18.0) g/dL Hct (42-52) % MCV (80-100) fL MCH (25-34) pg MCHC (32-36) g/dL RDW Std Deviation (36.4-46.3) fL RDW Coeff of James (11.5-14.5) % Plt Count (130-400) K/uL MPV (7.4-10.4) fL PT (9.0-12.0) Seconds INR (0.9-1.1) Sodium (136-145) mmol/L Potassium (3.5-5.1) mmol/L Chloride (98-107) mmol/L Carbon Dioxide (21-32) mmol/L Anion Gap (3-11) BUN (7-18) mg/dl Creatinine (0.6-1.4) mg/dl Est Cr Clr Drug Dosing ml/min Est GFR ( Amer) Est GFR (Non-Af Amer) BUN/Creatinine Ratio (10-20) Glucose (70-99) mg/dl POC Glucose 192 H (70-99) Calcium (8.5-10.1) mg/dl Iron (35-175) mcg/dl TIBC (250-450) mcg/dl Transferrin (200-360) mg/dl Transferrin % Sat (20-50) % Ferritin (8-388) ng/ml PG Care Time/CCT Total # of Minutes Spent Total Time Spent with Patient: Total time spent is greater than 50% in coordination of care (as documented) at patient's floor/unit and/or counseling patient: (1) Hyperlipidemia Hyperlipidemia type: mixed hyperlipidemia Qualified Code(s): E78.2 - Mixed hyperlipidemia (2) Lung cancer Laterality: unspecified laterality Lung location: unspecified part of lung Qualified Code(s): C34.90 - Malignant neoplasm of unspecified part of unspecified bronchus or lung (3) Hypertension Hypertension type: essential hypertension Qualified Code(s): I10 - Essential (primary) hypertension
[2019-02-09] MEDS: CETIRIZINE HCL 10 MG TABLET PO SCH (13:20)
--- NOTE | 2019-02-09 15:26 | Emergency Department Note ---
Entered by Anca Godoy acting as a scribe for Geo Moya MD History of Present Illness General Chief complaint: Shortness of Breath/Dyspnea Stated complaint: sob Time Seen by Provider: 02/08/19 11:02 Source: patient History of Present Illness Provider complaint: shortness of breath Onset (ago): hour(s) (this morning ) Location: chest Severity: similar to prior episodes Pain Consistency: + other (episode ) Relieved By: + other (Oxygen 3L ) Associated symptoms: + other (swelling of bilateral legs ) Treatments prior to arrival: other (breathing treatment ) The patient is a 73 year old male who presents to the ED with complaints of an episode of shortness of breath that began this morning. The patient states that he is unable to catch his breath. The patient states that his side seam machine operator, who he sees for his leg arthritis, referred him to the ED. The patient states that he has a medical history of swelling in his bilaterally legs, COPD, lung cancer, and bladder cancer. The patient states that he has a hernia in his lower abdomen. The patient states that he is normally on 3L of oxygen nasal cannula at home. The patient states that the EMS gave him a breathing treatment on the way to the ED. The patient states that he took 20mg of Prednisone this morning. The patient states that he is on no blood thinners. The patient states that he does breathing treatments every other day at home but was unable to do them today. Home Medications Home Medications Medication Instructions Recorded Confirmed Type Spiriva with HandiHaler 1 cap INHALATION QAM 03/30/18 02/08/19 History Symbicort 2 puff INHALATION BID 03/30/18 02/08/19 History albuterol sulfate 2 puff INHALATION Q4H PRN 03/30/18 02/08/19 History ascorbic acid (vitamin C) [Vitamin 1 g PO QAM 03/30/18 02/08/19 History C] atorvastatin 80 mg PO PM 03/30/18 02/08/19 History cyanocobalamin (vitamin B-12) 100 mcg PO QAM 03/30/18 02/08/19 History [Vitamin B-12] docusate sodium 100 mg PO BID 03/30/18 02/08/19 History finasteride 5 mg PO QAM 03/30/18 02/08/19 History methadone 10 mg PO QID 03/30/18 02/08/19 History pyridoxine (vitamin B6) [Vitamin 100 mg PO QAM 03/30/18 02/08/19 History B-6] terazosin 2 mg PO QPM 03/30/18 02/08/19 History cholecalciferol (vitamin D3) 400 400 unit PO DAILY cap 12/01/18 02/08/19 Histor y unit capsule magnesium oxide 400 mg PO BID 12/03/18 02/08/19 History amlodipine [Norvasc] 5 mg PO HS 12/07/18 02/08/19 History sennosides 17.2 mg PO BID PRN 12/07/18 02/08/19 History albuterol sulfate 1.25 mg INHALATION QID 12/28/18 02/08/19 History lidocaine [Lidoderm] 1 patch TOP DAILY PRN #15 ea 12/28/18 02/08/19 Rx cetirizine 5 mg PO DAILY 01/09/19 02/08/19 History diclofenac sodium [Voltaren] 4 applic EXT QID PRN #1 tube 01/15/19 02/08/19 Rx metformin 500 mg PO DAILY #30 tab 01/15/19 02/08/19 Rx omeprazole 20 mg PO DAILY #30 cap 01/15/19 02/08/19 Rx prednisone 0 mg PO UD 02/08/19 02/08/19 History Allergies Allergy/AdvReac Type Severity Reaction Status Date / Time Bactrim Allergy Severe TONGUE Verified 12/02/17 08:11 SWELLS/FONG mupirocin Allergy Severe ANAPHYLAXIS Verified 02/08/19 11:39 sulfamethoxazole Allergy Severe TONGUE Verified 02/08/19 11:39 SWELLS/FONG trimethoprim Allergy Severe TONGUE Verified 02/08/19 11:39 SWELLS/FONG Iodinated Contrast Media Allergy Intermediate HIVES/ITCHI Verified 02/08/19 11:39 NG lisinopril Allergy Intermediate Tongue Verified 02/08/19 11:39 Swelling mustard Allergy Intermediate Hives, Verified 02/08/19 11:39 SOB, Itchy aspirin Allergy Mild ITCHY Verified 02/08/19 11:39 adhesive AdvReac Intermediate Tape - Rash Verified 02/08/19 11:39 Past Med/Surg History Medical History Chronic respiratory failure (Chronic) COPD (chronic obstructive pulmonary disease) (Chronic) Opioid dependence (Chronic) Bladder cancer metastasized to pelvic region (Acute) BPH (benign prostatic hyperplasia) (Chronic) COPD (chronic obstructive pulmonary disease) (Chronic) Elevated PSA (Chronic) H/O malignant neoplasm of skin (Chronic) Hyperlipidemia (Chronic) Non-small cell lung cancer (Chronic) CURRENTLY BEING TREATED W/ CHEMOTHERAPY Stroke (Chronic) 2009 - NO PERIPHERAL VISION RT SIDE - NO NEUROLOGIST Urothelial carcinoma (Chronic) H/O hematuria (Resolved) Hypertension (Resolved) Acute leg pain (Inactive) Left leg swelling (Inactive) Bladder cancer CURRENTLY BEING TREATED W/ CHEMOTHERAPY Chronic back pain Constipation Inguinal hernia BL Osteoarthritis Umbilical hernia Surgical History H/O prostate biopsy (Acute) H/O Moh's micrographic surgery for skin cancer (Resolved) H/O hand surgery (Resolved) H/O prostatectomy History of bronchoscopy W/ BIOPSY History of colonoscopy History of surgery TRANSURETHRAL RESECTION OF BLADDER TUMOR X 3 History of surgery PLACEMENT OF MEDIPORT W/ REMOVAL History of ureter stent W/ REMOVAL Family History Father , 69yo [place], DM, arthritis, HTN Diabetes Cardiac disorder Hypertension Mother , age 84 from stroke Cardiac disorder Hypertension Brother Diabetes Cardiac disorder Hypertension Cancer, face Sister History of kidney cancer Hypertension Unknown Lung cancer Leukemia Basal cell carcinoma Social History Preferred Language: Bulgarian Communication Ability: Effective Visual Impairment: No Limitations Hearing Ability: Rotary Drier Feeder Required: No Beliefs That Will Affect Care: None marital status: marital status details: 1 son and 3 daughters Current Living Situation: Alone Current Living Situation Comment: apartment 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 and A total of 10 systems reviewed and were otherwise negative Physical Exam Vital Signs Vital Signs - 24 hr 02/08/19 15:30 02/08/19 16:00 02/08/19 16:18 Pulse Rate 102 H Pulse Rate from SpO2 Sensor 101 H Respiratory Rate Blood Pressure 123/71 141/72 H Blood Pressure Mean 88 95 Pulse Oximetry 95 Oxygen Flow Rate 3 02/08/19 16:30 Pulse Rate 89 Pulse Rate from SpO2 Sensor 89 Respiratory Rate 17 Blood Pressure Blood Pressure Mean Pulse Oximetry 98 Oxygen Flow Rate 3 GENERAL: Awake, alert, well-appearing, in no acute distress HENT: Normocephalic, atraumatic. Oropharynx unremarkable. EYES: Normal conjunctiva. Sclera non-icteric. NECK: Supple. No nuchal rigidity. FROM. No JVD. RESPIRATORY: Wheezing bilaterally at the bases. CARDIAC: Regular rate, normal rhythm. Extremities warm and well perfused. Pulses equal. ABDOMEN: Soft, non-distended. No tenderness to palpation. No rebound or guarding. No masses. RECTAL: Deferred. MUSCULOSKELETAL: Chest examination reveals no tenderness. The back is symmetrical on inspection without obvious abnormality. There is no CVA tenderness to palpation. No joint edema. LOWER EXTREMITIES: Left lag wrapped in an taylor wrap, left leg has 1+ pedal edema. No discoloration. NEURO: Normal sensorium. No sensory or motor deficits noted. SKIN: No rash or jaundice noted. Course 1138: Past medical records reviewed. The patient was evaluated in room C9. A co mplete history and physical exam was performed. 1215: I reevaluated the patient at this time and he stated that he has no worsening symptoms. I discussed the test results and treatment plan with the patient. He verbally agreed and understood. 1310: I reevaluated the patient at this time and he stated that he has no worsening symptoms. I discussed the test results and treatment plan with the pat iedee. He verbally agreed and understood. The patient verbalized that he wanted to be evaluated for further management. 1428: I [facility] the [facility] He agreed to evaluate the patient for further management. Consultations Consultation #1: I discussed the patient's case with Dr. Puri, [place]. He agreed to evaluate the patient for further management. Time: 14:28 Administered Medications Albuterol (Duoneb) 3 ml NEB TIDR BELKIS Stop: 03/10/19 18:59 Last Admin: 02/09/19 13:07 Dose: 3 ml Documented by: [id number] Admin: 02/09/19 07:18 Dose: 3 ml Documented by: [id number] Admin: 02/08/19 20:25 Dose: 3 ml Documented by: [id number] Amlodipine Besylate (Norvasc) 5 mg PO HS BELKIS Stop: 03/10/19 20:59 Last Admin: 02/08/19 20:22 Dose: 5 mg Documented by: [id number] Atorvastatin Calcium (Lipitor) 80 mg PO PM BELKIS Stop: 03/10/19 20:59 Last Admin: 02/08/19 20:22 Dose: 80 mg Documented by: [id number] Budesonide/Formoterol Fumarate (Symbicort 160mcg/4.5mcg) 2 puffs INH BID BELKIS Stop: 03/10/19 20:59 Last Admin: 02/09/19 08:25 Dose: 2 puffs Documented by: [id number] Admin: 02/08/19 20:40 Dose: 2 puffs Documented by: [id number] Cetirizine HCl (Zyrtec) 5 mg PO QAM BELKIS Stop: 03/11/19 12:44 Last Admin: 02/09/19 13:20 Dose: 5 mg Documented by: [id number] Docusate Sodium (Colace) 100 mg PO BID BELKIS Stop: 03/10/19 20:59 Last Admin: 02/09/19 08:22 Dose: 100 mg Documented by: [id number] Admin: 02/08/19 20:24 Dose: 100 mg Documented by: [id number] Finasteride (Proscar) 5 mg PO QAM BELKIS Stop: 03/11/19 08:59 Last Admin: 02/09/19 08:23 Dose: 5 mg Documented by: [id number] Heparin Sodium (Porcine) (Heparin Sodium (Porcine)) 5,000 units SQ Q12 BELKIS Stop: 03/10/19 20:59 Last Admin: 02/09/19 08:26 Dose: 5,000 units Documented by: [id number] Cosigned by: [id number] Admin: 02/08/19 20:24 Dose: 5,000 units Documented by: [id number] Cosigned by: [id number] Methylprednisolone 40 mg/ (Syringe) 0.64 mls @ 1.5 mls/min IV Q6H BELKIS Stop: 03/10/19 19:59 Last Admin: 02/09/19 13:20 Dose: 1.5 mls/min Documented by: [id number] Admin: 02/09/19 08:22 Dose: 1.5 mls/min Documented by: [id number] Admin: 02/09/19 02:10 Dose: 1.5 mls/min Documented by: [id number] Admin: 02/08/19 20:36 Dose: 1.5 mls/min Documented by: [id number] Insulin Aspart (Novolog Flexpen) 0 units SC ACHS BELKIS Stop: 03/10/19 20:59 Last Admin: 02/09/19 12:25 Dose: 5 units Documented by: [id number] Cosigned by: [id number] Admin: 02/09/19 08:29 Dose: 5 units Documented by: [id number] Cosigned by: [id number] Admin: 02/08/19 20:38 Dose: 1 units Documented by: [id number] Cosigned by: [id number] Methadone HCl (Dolophine) 10 mg PO 0500,1100,1700,2300 BELKIS Stop: 02/22/19 22:59 Last Admin: 02/09/19 10:58 Dose: 10 mg Documented by: [id number] Admin: 02/09/19 05:09 Dose: 10 mg Documented by: [id number] Admin: 02/09/19 00:25 Dose: 10 mg Documented by: [id number] Pantoprazole Sodium (Protonix) 40 mg PO DAILY BELKIS Stop: 03/11/19 08:59 Last Admin: 02/09/19 08:23 Dose: 40 mg Documented by: [id number] Terazosin HCl (Hytrin) 2 mg PO QPM BELKIS Stop: 03/10/19 20:59 Last Admin: 02/08/19 20:23 Dose: 2 mg Documented by: [id number] Tiotropium [place] (Spiriva) 1 puffs INH QAM BELKIS Stop: 03/11/19 08:59 Last Admin: 02/09/19 08:24 Dose: 1 puffs Documented by: [id number] Discontinued Medications Albuterol (Duoneb) 12 ml NEB ONE ONE Stop: 02/08/19 11:43 Last Admin: 02/08/19 11:55 Dose: 12 ml Documented by: [id number] Azithromycin (Zithromax) 250 mg PO NOW ONE Stop: 02/08/19 17:01 Last Admin: 02/08/19 20:43 Dose: Not Given Documented by: [id number] Methylprednisolone 60 mg/ (Syringe) 1.96 mls @ 1.5 mls/min IV NOW STA Stop: 02/08/19 11:43 Last Admin: 02/08/19 12:09 Dose: Not Given Documented by: [id number] Methylprednisolone 40 mg/ (Syringe) 0.64 mls @ 1.5 mls/min IV Q6H BELKIS Stop: 03/10/19 17:59 Last Admin: 02/08/19 17:55 Dose: 1.5 mls/min Documented by: [id number] Methadone HCl (Dolophine) 10 mg PO QID BELKIS Stop: 02/22/19 16:59 Last Admin: 02/08/19 17:55 Dose: 10 mg Documented by: [id number] Methylprednisolone (Solumedrol) Confirm Administered Dose 125 mg .ROUTE .STK-MED ONE Stop: 02/08/19 12:07 Last Admin: 02/08/19 12:08 Dose: 60 mg Documented by: [id number] Medical Decision Making Differential Diagnosis Differential diagnosis: Etiologies such as infections, reactive airway disease, COPD, pneumonia, pleural effusion, pulmonary edema, ARDS, pneumothorax, CHF, cardiac ischemia, cardiac tamponade, dysrhythmia, anemia, pulmonary embolism, musculoskeletal, gastrointestinal process, as well as others were entertained. Medical Records Attestation: I reviewed the patient's medical records. Home Medications Current Medication List: was personally reviewed by me Laboratory Data Attestation: I reviewed the patient's lab results. Result diagrams: 02/09/19 05:38 02/09/19 05:38 Lab Results 02/08/19 02/08/19 Range/Units 11:11 11:11 WBC 10.68 (4.8-10.8) K/uL RBC 3.77 L (4.7-6.1) M/uL Hgb 10.6 L (14.0-18.0) g/dL Hct 34.2 L (42-52) % MCV 90.7 (80-100) fL MCH 28.1 (25-34) pg MCHC 31.0 L (32-36) g/dL RDW Std Deviation 57.5 H (36.4-46.3) fL RDW Coeff of James 17.2 H (11.5-14.5) % Plt Count 171 (130-400) K/uL MPV 9.6 (7.4-10.4) fL Immature Gran % (Auto) 2.8 % Neut % (Auto) 82.3 % Lymph % (Auto) 7.8 % [place] % (Auto) 6.3 % Eos % (Auto) 0.6 % Baso % (Auto) 0.2 % Immature Gran # (Auto) 0.30 H (0.00-0.02) K/uL Neut # (Auto) 8.80 H (1.4-6.5) K/uL Lymph # (Auto) 0.83 L (1.2-3.4) K/uL [place] # (Auto) 0.67 H (0.11-0.59) K/uL Eos # (Auto) 0.06 (0-0.5) K/uL Baso # (Auto) 0.02 (0-0.2) K/uL Sodium 136 (136-145) mmol/L Potassium 4.0 (3.5-5.1) mmol/L Chloride 100 (98-107) mmol/L Carbon Dioxide 30 (21-32) mmol/L Anion Gap 6.0 (3-11) BUN 23 H (7-18) mg/dl Creatinine 0.80 (0.6-1.4) mg/dl Est Cr Clr Drug Dosing 98.6 ml/min Est GFR ( Amer) 104.2 Est GFR (Non-Af Amer) 89.9 BUN/Creatinine Ratio 28.8 H (10-20) Glucose 147 H (70-99) mg/dl Calcium 8.7 (8.5-10.1) mg/dl Total Bilirubin 0.5 (0.2-1) mg/dl AST 16 (15-37) U/L ALT 37 (12-78) U/L Alkaline Phosphatase 74 (45-117) U/L Total Creatine Kinase 50 (39-308) U/L CK-MB (CK-2) 2.5 (0.5-3.6) ng/ml CK/CKMB % Calc 5.0 H (0-3.0) Troponin I < 0.015 (0-0.045) ng/ml Total Protein 6.6 (6.4-8.2) gm/dl Albumin 2.7 L (3.4-5.0) gm/dl Globulin 3.9 (2.5-4.0) gm/dl Albumin/Globulin Ratio 0.7 L (0.9-2) Lipase 148 (73-393) U/L Imaging Data Radiologist's Impression: Radiology results as stated below per my review and the radiologist's interpretation: SINGLE VIEW CHEST CLINICAL HISTORY: Atypical chest pain. FINDINGS: An AP, portable, upright chest radiograph is compared to study dated 01/09/2019 and correlated with chest CT dated 06/30/2018. The examination is degraded by portable technique and patient rotation. The heart is top normal for projection noting atherosclerotic calcification of the thoracic aorta. Enlargement of the central pulmonary arteries suggests pulmonary artery hypertension. The pulmonary vascular structures noncongested. Advanced emphysema and chronic interstitial thickening are similar to previous. There is bibasilar scarring/atelectasis. No airspace consolidation is seen typical for pneumonia and there is no large pleural effusion. A large calcified granuloma is again seen in the right midlung. No pneumothorax is seen. The skeletal structures are osteopenic. There are numerous healed bilateral rib fractures. A Hill-Sachs deformity is suggested in the right shoulder. IMPRESSION: 1. Advanced emphysematous change with no acute cardiopulmonary abnormality identified. 2. Pulmonary lesions seen by CT on 06/30/2018 cannot be visualized by x-ray. Electronically signed by: Reinaldo Monge M.D. 02/08/2019 11:56 AM ECG Data Attestation: I personally reviewed and interpreted this ECG as follows: Indication: SOB/dyspnea Rate (beats per minute): 88 Rhythm: normal sinus Findings: + other (normal EKG ); no ST depression, no ST elevation and no acute ischemic change Blood Pressure Blood Pressure Findings: Normal blood pressure Blood Pressure Disposition: did not require urgent referral MDM Narrative This is a 73-year-old male who presents emergency department complaining shortness of breath. Using shared medical decision-making with the patient decision was made to obtain chest x-ray and to develop the patient's steroids including Solu-Medrol. He was given hour-long breathing treatment here in the emergency department. Patient did asked that I discussed his case with his aerial gunner. I gave the patient the option of being discharged or being admitted. He would like to be admitted at this point. I did discuss the case with the hospitalist service who agreed to admit the patient. Patient family were in agreement with the treatment plan. Impression & Plan COPD exacerbation Discharge Plan Visit Data *Final* Discharge Date/Time: 02/08/19 18:21 Chief Complaint: Shortness of Breath/Dyspnea Stated Complaint: sob ED Provider: Geo Moya Discharge Problem: COPD exacerbation Patient Disposition: Admitted As Inpatient Discharge Instructions Interventions: ED Discharge Assessment Last Done: 02/08/19 18:21 The scribe's documentation has been prepared under my direction and personally reviewed by me in its entirety. I confirm that the note above accurately reflects all work, treatment, procedures, and medical decision making performed by me.
[2019-02-09] MEDS: AMLODIPINE BESYLATE 5 MG TAB PO SCH (20:14)
[2019-02-09] MEDS: ATORVASTATIN 40 MG TAB PO SCH (20:14)
[2019-02-09] MEDS: TERAZOSIN HCL 1 MG CAP PO SCH (20:16)
[2019-02-09] MEDS: DICLOFENAC SOD 1% GEL 100 GM TUBE EXT PRN (20:20)
[2019-02-09] MEDS ORDERED: ACETAMINOPHEN 325 MG TAB PO PRN (20:53)
[2019-02-10] MEDS: methylPREDNISolone 40 MG in SYRINGE 0 ML IV SCH ×3 (01:39→17:14)
[2019-02-10] MEDS: METHADONE HCL 10 MG TAB PO SCH ×4 (04:50→22:46)
[2019-02-10 06:23] LABS: Hematocrit (blood only) 34.4 % (42-52); Hemoglobin 10.8 g/dL (14.0-18.0); Mean Corpuscular Hemoglobin 28.3 pg (25-34); Mean Corpuscular Hgb Conc 31.4 g/dL (32-36); Mean Corpuscular Volume 90.3 fL (80-100); Mean Platelet Volume 9.2 fL (7.4-10.4); Platelet Count 171 K/uL (130-400); RDW Coefficient of Variation 17.2 % (11.5-14.5); RDW Standard Deviation 56.8 fL (36.4-46.3); Red Blood Count 3.81 M/uL (4.7-6.1); White Blood Count 16.24 K/uL (4.8-10.8)
[2019-02-10 06:53] LABS: BUN Creatinine Ratio 28.3 (10-20); Calcium 9.1 mg/dl (8.5-10.1); Creatinine Clr Calc Pharmacy 80.7 ml/min; Est GFR (African American) 90.7; Est GFR (Non-African American) 78.2; Potassium 4.2 mmol/L (3.5-5.1)
[2019-02-10] MEDS: ALBUT/IPRATROP 3MG/0.5MG NEB 3 ML VIAL NEB SCH ×3 (07:02→19:24)
[2019-02-10] MEDS: INSULIN ASPART 100 UNITS/ML 3 ML PEN SC SCH ×4 (07:58→20:40)
[2019-02-10] MEDS: DOCUSATE SODIUM 100 MG CAP PO SCH ×2 (08:00→20:38)
[2019-02-10] MEDS: PANTOprazole 40 MG TAB PO SCH (08:00)
[2019-02-10] MEDS: CETIRIZINE HCL 10 MG TABLET PO SCH (08:00)
[2019-02-10] MEDS: FINASTERIDE 5 MG TAB PO SCH (08:00)
[2019-02-10] MEDS: HEPARIN SOD 5,000 UNIT/0.5 ML VIAL SQ SCH ×2 (08:00→20:40)
[2019-02-10] MEDS: BUDESONIDE/FORMOTEROL FUMARATE 160/4.5 60 PUFFS/INHALER INH SCH ×2 (08:00→20:39)
[2019-02-10] MEDS: TIOTROPIUM BROMIDE 5 PUFF/90 MCG INH INH SCH (08:01)
[2019-02-10] MEDS: DICLOFENAC SOD 1% GEL 100 GM TUBE EXT PRN (10:56)
--- NOTE | 2019-02-10 13:03 | Hospitalist Progress Note ---
Date of Service February 10, 2019 Assessment & Plan (1) COPD exacerbation: - Acute SOB at admission -- likely related to COPD exacerbation. Breathing is slightly improved, not back at baseline. - CXR showed advanced emphysema, otherwise negative. - Recently started course of Azithromycin -- completed course of abx on 02/08/19. - Solu-Medrol 40 mg IV - will taper to q8hr. - Duonebs q6hrWA; Albuterol prn wheezing/SOB. - Continue home Spiriva and Symbicort as prescribed. - Will require further work up for worsening SOB -- consider PE in setting of lung cancer vs. immunotherapy related interstitial lung disease. (2) Chronic respiratory failure with hypoxia: - Requires 2L at rest, 4L via exertion -- currently using 3L at rest. - Wean as tolerated. (3) Polyarticular arthritis: - Recently admitted at end of December 2018; on tapering course of Prednisone per train caller. - Will hold Prednisone PO due to Solu-medrol IV (see above). (4) DM w/o complication type II: - Hgb A1C was 7.2 in December 2018; holding home Metformin. - SSI with gluc checks ac/hs - has steroid induced hyperglycemia, BG now improved. (5) Lung cancer: - Most recently received Opdivo -- follows with Dr. Anand. - Immunotherapy now d/c'ed due to recently diagnosed polyarticular arthritis. - Will need f/u with onc as outpatient. (6) Bladder cancer metastasized to pelvic region: - S/p multiple procedures; currently in remission. (7) BPH with obstruction/lower urinary tract symptoms: - Continue home Terazosin and Finasteride as prescribed. (8) Hypertension: - Continue home Amlodipine 5 mg daily. (9) Hyperlipidemia: - Continue Atorvastatin as prescribed. (10) Chronic pain syndrome: - Continue home Methadone 10 mg QID. - Continue Colace 100 mg BID for bowel regimen with Miralax prn - is having regular BMs. (11) Anemia: - Baseline hgb ~10-11. - Iron studies c/w anemia of chronic disease. (12) DVT prophylaxis: - SCDs; Heparin 5,000 units q12hr. TEDs. Dispo: Treatment of COPD exacerbation. Discharge likely over next 24-48 hours pending improvement in resp issues. Supervising Physician Co-Signing Physician Notes Chart reviewed, case discussed with Yareli Zee PAC. Agree with decision making and plan. Care as above. Subjective Pt. reports breathing is improving but is not back to baseline yet. He remains on 3L via NC. Denies SOB at rest, has SOB with extended exertion. Denies chest pain, N/V, abd pain. Is having regular BMs. Complains of left knee pain -- had polyarticular arthritis during last admission, advised to use Voltaren gel prn. Review of Systems Review of Systems: All systems reviewed & are unremarkable except as noted in HPI & below Constitutional: + fatigue and + weakness; no fever and no chills Respiratory: + dyspnea on exertion; no cough, no dyspnea and no wheezing Cardiovascular: no chest pain, no palpitations and no edema Gastrointestinal: no abdominal pain, no nausea and no constipation Genitourinary: no difficulty urinating Musculoskeletal: + joint pain (Left leg,knee pain); no back pain Integumentary: no non-healing lesions Physical Exam Physical Exam: General: Resting comfortably HEENT: NC/AT; PERRLA with EOMI; [place] conjunctiva, MMM. No erythema of posterior pharynx Neck: Supple and nontender Cardiac: RRR Lungs: on 3L via NC; wheezing noted in bilat lung bases. Abdomen: Bowel normoactive X 4; Nontender to palpation Extremities: Warm. No LE edema noted. Neuro: No focal weakness Skin: No rash Results & Data Vital Signs (Past 12 Hours) Vital Signs Temp Pulse Pulse Resp BP Pulse Ox 02/10/19 11:00 36.5 C 90 18 122/68 95 02/10/19 07:38 77 02/10/19 07:03 99 H 24 90 02/10/19 07:00 36.4 C L 84 18 115/63 93 02/10/19 04:23 36.4 C L 75 18 115/69 97 02/10/19 01:25 76 Laboratory Results 02/10/19 02/10/19 02/10/19 Range/Units 11:34 07:21 05:59 WBC (4.8-10.8) K/uL RBC (4.7-6.1) M/uL Hgb (14.0-18.0) g/dL Hct (42-52) % MCV (80-100) fL MCH (25-34) pg MCHC (32-36) g/dL RDW Std Deviation (36.4-46.3) fL RDW Coeff of James (11.5-14.5) % Plt Count (130-400) K/uL MPV (7.4-10.4) fL Sodium 137 (136-145) mmol/L Potassium 4.2 (3.5-5.1) mmol/L Chloride 100 (98-107) mmol/L Carbon Dioxide 27 (21-32) mmol/L Anion Gap 10.0 (3-11) BUN 27 H (7-18) mg/dl Creatinine 0.97 (0.6-1.4) mg/dl Est Cr Clr Drug Dosing 80.7 ml/min Est GFR ( Amer) 90.7 Est GFR (Non-Af Amer) 78.2 BUN/Creatinine Ratio 28.3 H (10-20) Glucose 191 H (70-99) mg/dl POC Glucose 168 H 156 H (70-99) Calcium 9.1 (8.5-10.1) mg/dl 02/10/19 02/09/19 02/09/19 Range/Units 05:59 20:10 16:20 WBC 16.24 H (4.8-10.8) K/uL RBC 3.81 L (4.7-6.1) M/uL Hgb 10.8 L (14.0-18.0) g/dL Hct 34.4 L (42-52) % MCV 90.3 (80-100) fL MCH 28.3 (25-34) pg MCHC 31.4 L (32-36) g/dL RDW Std Deviation 56.8 H (36.4-46.3) fL RDW Coeff of James 17.2 H (11.5-14.5) % Plt Count 171 (130-400) K/uL MPV 9.2 (7.4-10.4) fL Sodium (136-145) mmol/L Potassium (3.5-5.1) mmol/L Chloride (98-107) mmol/L Carbon Dioxide (21-32) mmol/L Anion Gap (3-11) BUN (7-18) mg/dl Creatinine (0.6-1.4) mg/dl Est Cr Clr Drug Dosing ml/min Est GFR ( Amer) Est GFR (Non-Af Amer) BUN/Creatinine Ratio (10-20) Glucose (70-99) mg/dl POC Glucose 121 H 181 H (70-99) Calcium (8.5-10.1) mg/dl PG Care Time/CCT Total # of Minutes Spent Total Time Spent with Patient: Total time spent is greater than 50% in coordination of care (as documented) at patient's floor/unit and/or counseling patient: (1) Hyperlipidemia Hyperlipidemia type: mixed hyperlipidemia Qualified Code(s): E78.2 - Mixed hyperlipidemia (2) Lung cancer Laterality: unspecified laterality Lung location: unspecified part of lung Q ualified Code(s): C34.90 - Malignant neoplasm of unspecified part of unspecified bronchus or lung (3) Hypertension Hypertension type: essential hypertension Qualified Code(s): I10 - Essential (primary) hypertension
[2019-02-10 18:52] LABS: Appearance Urine Clear (Clear); Bacteria Urine Automated Negative (Negative); Bilirubin Urine Negative (Negative); Blood Urine 3+ (Negative); Color Urine Orange; Glucose Urine UA Negative (Negative); Ketones Urine Negative (Negative); Leukocyte Esterase Urine Trace (Negative); Nitrite Urine Negative (Negative); Protein Urine Negative (Negative); RBC Urine Automated >30 /hpf (0-4); Specific Gravity Urine 1.014 (1.000-1.030); Urobilinogen Urine Negative (Negative)
[2019-02-10] MEDS: ATORVASTATIN 40 MG TAB PO SCH (20:38)
[2019-02-10] MEDS: AMLODIPINE BESYLATE 5 MG TAB PO SCH (20:38)
[2019-02-10] MEDS: TERAZOSIN HCL 1 MG CAP PO SCH (20:39)
[2019-02-11] MEDS: methylPREDNISolone 40 MG in SYRINGE 0 ML IV SCH ×3 (00:03→17:15)
[2019-02-11] MEDS: METHADONE HCL 10 MG TAB PO SCH ×4 (04:55→22:39)
[2019-02-11 06:06] LABS: Hematocrit (blood only) 36.6 % (42-52); Hemoglobin 11.5 g/dL (14.0-18.0); Mean Corpuscular Hemoglobin 28.5 pg (25-34); Mean Corpuscular Hgb Conc 31.4 g/dL (32-36); Mean Corpuscular Volume 90.8 fL (80-100); Mean Platelet Volume 9.5 fL (7.4-10.4); Platelet Count 174 K/uL (130-400); RDW Coefficient of Variation 17.2 % (11.5-14.5); Red Blood Count 4.03 M/uL (4.7-6.1); White Blood Count 14.59 K/uL (4.8-10.8)
[2019-02-11 06:41] LABS: BUN Creatinine Ratio 32.4 (10-20); Calcium 9.3 mg/dl (8.5-10.1); Est GFR (Non-African American) 80.2; Potassium 4.3 mmol/L (3.5-5.1)
[2019-02-11] MEDS: ALBUT/IPRATROP 3MG/0.5MG NEB 3 ML VIAL NEB SCH ×4 (06:56→19:37)
[2019-02-11] MEDS: INSULIN ASPART 100 UNITS/ML 3 ML PEN SC SCH ×4 (08:29→21:02)
[2019-02-11] MEDS: TIOTROPIUM BROMIDE 5 PUFF/90 MCG INH INH SCH (08:30)
[2019-02-11] MEDS: BUDESONIDE/FORMOTEROL FUMARATE 160/4.5 60 PUFFS/INHALER INH SCH ×2 (08:30→21:04)
[2019-02-11] MEDS: HEPARIN SOD 5,000 UNIT/0.5 ML VIAL SQ SCH (08:31)
[2019-02-11] MEDS: FINASTERIDE 5 MG TAB PO SCH (08:31)
[2019-02-11] MEDS: CETIRIZINE HCL 10 MG TABLET PO SCH (08:31)
[2019-02-11] MEDS: DOCUSATE SODIUM 100 MG CAP PO SCH ×2 (08:32→21:03)
[2019-02-11] MEDS: PANTOprazole 40 MG TAB PO SCH (08:32)
--- NOTE | 2019-02-11 10:30 | Hospitalist Progress Note ---
Date of Service February 11, 2019 Assessment & Plan (1) COPD exacerbation: - Acute SOB at admission -- likely related to COPD exacerbation. Breathing is close to baseline, will monitor over next 24 hours and likely d/c on 02/12. - CXR showed advanced emphysema, otherwise negative. - Completed course of Azithromycin on 02/08/19. - Solu-Medrol 40 mg IV - tapered to q8hr. Will start oral Prednisone 60 mg daily on 02/12. - Duonebs q6hrWA; Albuterol prn wheezing/SOB. - Continue home Spiriva and Symbicort as prescribed. - Consider PE in setting of lung cancer vs. immunotherapy related interstitial lung disease - symptoms improved with conservative treatment of COPD. (2) Chronic respiratory failure with hypoxia: - Requires 2L at rest, 4L via exertion -- currently using 2-4L at rest. (3) Polyarticular arthritis: - Recently admitted at end of December 2018; on tapering course of Prednisone per deportation examiner - most recently on 20 mg PO daily. - Will need long taper of Prednisone at discharge. - ESR and CRP ordered; had lab script from Dr. Lawler as outpt for studies. (4) DM w/o complication type II: - Hgb A1C was 7.2 in December 2018; holding home Metformin. - SSI with gluc checks ac/hs - BG has been well controlled. (5) Lung cancer: - Most recently received Opdivo -- follows with Dr. Anand. - Immunotherapy now d/c'ed due to recently diagnosed polyarticular arthritis. - Will need f/u with onc as outpatient. (6) Hematuria: - Developed hematuria x 2 episodes on 02/10, now resolved. 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 - Did have irregular appearing prostate during procedure; PSA is 5.85 (previously 5.63 in Feb 2018) - Will d/c Heparin ppx in setting of hematuria. - Has not received treatment for bladder cancer and right kidney cancer due to diagnosis of lung cancer. 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 (8) BPH with obstruction/lower urinary tract symptoms: - Continue home Terazosin and Finasteride as prescribed. (9) Hypertension: - Continue home Amlodipine 5 mg daily. (10) Hyperlipidemia: - Continue Atorvastatin as prescribed. (11) Chronic pain syndrome: - Continue home Methadone 10 mg QID. - Continue Colace 100 mg BID for bowel regimen with Miralax prn - having regular BMs. (12) Anemia: - Baseline hgb ~10-11. - Iron studies c/w anemia of chronic disease. (13) DVT prophylaxis: - SCDs; d/c Heparin in setting of hematuria. Dispo: Treatment of COPD exacerbation. Discharge on 02/12 if SOB is improving. Subjective Pt. reports SOB is improving, close to baseline. He is stable on home oxygen requirements. Denies chest pain, cough. He had two episodes of hematuria yesterday, now completely resolved. Denies dysuria, urinary frequency, abd pain. Review of Systems Review of Systems: All systems reviewed & are unremarkable except as noted in HPI & below Constitutional: no fever, no chills, no fatigue, no weakness and no anorexia Respiratory: + dyspnea on exertion; no cough, no dyspnea and no wheezing Cardiovascular: no chest pain, no palpitations and no edema Gastrointestinal: no abdominal pain, no nausea, no constipation and no diarrhea/loose stools Genitourinary: + hematuria; no dysuria, no difficulty urinating and no urinary frequency Musculoskeletal: no back pain and no joint pain Integumentary: no non-healing lesions Physical Exam Physical Exam: General: Resting comfortably HEENT: NC/AT; PERRLA with EOMI; [place] conjunctiva, MMM. No erythema of posterior pharynx Neck: Supple and nontender Cardiac: RRR Lungs: on 3L via NC; diminished in bilat lung bases, otherwise clear throughout. Abdomen: Bowel normoactive X 4; Nontender to palpation Extremities: Warm. No LE edema noted. Neuro: No focal weakness Skin: No rash Results & Data Vital Signs (Past 12 Hours) Vital Signs Temp Pulse Resp BP BP Pulse Ox 02/11/19 07:00 36.5 C 79 20 144/72 H 97 02/11/19 06:57 79 20 97 02/10/19 23:27 36.5 C 75 20 111/68 96 Laboratory Results 02/11/19 02/11/19 02/11/19 Range/Units 07:45 05:46 05:46 WBC 14.59 H (4.8-10.8) K/uL RBC 4.03 L (4.7-6.1) M/uL Hgb 11.5 L (14.0-18.0) g/dL Hct 36.6 L (42-52) % MCV 90.8 (80-100) fL MCH 28.5 (25-34) pg MCHC 31.4 L (32-36) g/dL RDW Std Deviation 58.0 H (36.4-46.3) fL RDW Coeff of James 17.2 H (11.5-14.5) % Plt Count 174 (130-400) K/uL MPV 9.5 (7.4-10.4) fL Sodium 136 (136-145) mmol/L Potassium 4.3 (3.5-5.1) mmol/L Chloride 100 (98-107) mmol/L Carbon Dioxide 29 (21-32) mmol/L Anion Gap 7.0 (3-11) BUN 31 H (7-18) mg/dl Creatinine 0.95 (0.6-1.4) mg/dl Est Cr Clr Drug Dosing 82.0 ml/min Est GFR ( Amer) 93.0 Est GFR (Non-Af Amer) 80.2 BUN/Creatinine Ratio 32.4 H (10-20) Glucose 155 H (70-99) mg/dl POC Glucose 156 H (70-99) Calcium 9.3 (8.5-10.1) mg/dl Urine Color Urine Appearance (Clear) Urine pH (4.5-7.5) Ur Specific [place] (1.000-1.030) Urine Protein (Negative) Urine Glucose (UA) (Negative) Urine Ketones (Negative) Urine Blood (Negative) Urine Nitrite (Negative) Urine Bilirubin (Negative) Urine Urobilinogen (Negative) Ur Leukocyte Esterase (Negative) Urine WBC (Auto) (0-5) /hpf Urine RBC (Auto) (0-4) /hpf U Hyaline Cast (Auto) (0-5) /lpf U Epithel Cells (Auto) (0-5) /lpf Urine Bacteria (Auto) (Negative) 02/10/19 02/10/19 02/10/19 Range/Units 20:06 17:41 16:57 WBC (4.8-10.8) K/uL RBC (4.7-6.1) M/uL Hgb (14.0-18.0) g/dL Hct (42-52) % MCV (80-100) fL MCH (25-34) pg MCHC (32-36) g/dL RDW Std Deviation (36.4-46.3) fL RDW Coeff of James (11.5-14.5) % Plt Count (130-400) K/uL MPV (7.4-10.4) fL Sodium (136-145) mmol/L Potassium (3.5-5.1) mmol/L Chloride (98-107) mmol/L Carbon Dioxide (21-32) mmol/L Anion Gap (3-11) BUN (7-18) mg/dl Creatinine (0.6-1.4) mg/dl Est Cr Clr Drug Dosing ml/min Est GFR ( Amer) Est GFR (Non-Af Amer) BUN/Creatinine Ratio (10-20) Glucose (70-99) mg/dl POC Glucose 134 H 150 H (70-99) Calcium (8.5-10.1) mg/dl Urine Color Ryan Urine Appearance Clear (Clear) Urine pH 7.0 (4.5-7.5) Ur Specific [place] 1.014 (1.000-1.030) Urine Protein Negative (Negative) Urine Glucose (UA) Negative (Negative) Urine Ketones Negative (Negative) Urine Blood 3+ H (Negative) Urine Nitrite Negative (Negative) Urine Bilirubin Negative (Negative) Urine Urobilinogen Negative (Negative) Ur Leukocyte Esterase Trace H (Negative) Urine WBC (Auto) 1-5 (0-5) /hpf Urine RBC (Auto) >30 H (0-4) /hpf U Hyaline Cast (Auto) 1-5 (0-5) /lpf U Epithel Cells (Auto) 10-20 H (0-5) /lpf Urine Bacteria (Auto) Negative (Negative) 02/10/19 Range/Units 11:34 WBC (4.8-10.8) K/uL RBC (4.7-6.1) M/uL Hgb (14.0-18.0) g/dL Hct (42-52) % MCV (80-100) fL MCH (25-34) pg MCHC (32-36) g/dL RDW Std Deviation (36.4-46.3) fL RDW Coeff of James (11.5-14.5) % Plt Count (130-400) K/uL MPV (7.4-10.4) fL Sodium (136-145) mmol/L Potassium (3.5-5.1) mmol/L Chloride (98-107) mmol/L Carbon Dioxide (21-32) mmol/L Anion Gap (3-11) BUN (7-18) mg/dl Creatinine (0.6-1.4) mg/dl Est Cr Clr Drug Dosing ml/min Est GFR ( Amer) Est GFR (Non-Af Amer) BUN/Creatinine Ratio (10-20) Glucose (70-99) mg/dl POC Glucose 168 H (70-99) Calcium (8.5-10.1) mg/dl Urine Color Urine Appearance (Clear) Urine pH (4.5-7.5) Ur Specific [place] (1.000-1.030) Urine Protein (Negative) Urine Glucose (UA) (Negative) Urine Ketones (Negative) Urine Blood (Negative) Urine Nitrite (Negative) Urine Bilirubin (Negative) Urine Urobilinogen (Negative) Ur Leukocyte Esterase (Negative) Urine WBC (Auto) (0-5) /hpf Urine RBC (Auto) (0-4) /hpf U Hyaline Cast (Auto) (0-5) /lpf U Epithel Cells (Auto) (0-5) /lpf Urine Bacteria (Auto) (Negative) PG Care Time/CCT Total # of Minutes Spent Total Time Spent with Patient: Total time spent is greater than 50% in coordination of care (as documented) at patient's floor/unit and/or counseling patient: (1) Hyperlipidemia Hyperlipidemia type: mixed hyperlipidemia Qualified Code(s): E78.2 - Mixed hyperlipidemia (2) Lung cancer Laterality: unspecified laterality Lung location: unspecified part of lung Qualified Code(s): C34.90 - Malignant neoplasm of unspecified part of unspecified bronchus or lung (3) Hypertension Hypertension type: essential hypertension Qualified Code(s): I10 - Essential (primary) hypertension
[2019-02-11 10:55] LABS: C Reactive Protein 1.36 mg/dl (0-0.29); Prostate Specific Antigen 5.85 ng/ml (0-4)
[2019-02-11] MEDS: ATORVASTATIN 40 MG TAB PO SCH (21:03)
[2019-02-11] MEDS: AMLODIPINE BESYLATE 5 MG TAB PO SCH (21:03)
[2019-02-11] MEDS: TERAZOSIN HCL 1 MG CAP PO SCH (21:03)
[2019-02-12] MEDS: METHADONE HCL 10 MG TAB PO SCH ×2 (04:57→11:09)
[2019-02-12 06:58] LABS: Hemoglobin 12.3 g/dL (14.0-18.0); Mean Corpuscular Hemoglobin 28.6 pg (25-34); Mean Corpuscular Hgb Conc 31.5 g/dL (32-36); Mean Corpuscular Volume 90.7 fL (80-100); Nucleated RBC # (auto) 0.08 K/uL (0-0); Nucleated RBC % (auto) 0.6 %; Platelet Count 161 K/uL (130-400); RDW Coefficient of Variation 17.1 % (11.5-14.5); RDW Standard Deviation 57.1 fL (36.4-46.3); White Blood Count 13.25 K/uL (4.8-10.8)
[2019-02-12] MEDS: ALBUT/IPRATROP 3MG/0.5MG NEB 3 ML VIAL NEB SCH (07:24)
[2019-02-12] MEDS: INSULIN ASPART 100 UNITS/ML 3 ML PEN SC SCH ×2 (08:34→12:32)
[2019-02-12] MEDS: BUDESONIDE/FORMOTEROL FUMARATE 160/4.5 60 PUFFS/INHALER INH SCH (08:36)
[2019-02-12] MEDS: TIOTROPIUM BROMIDE 5 PUFF/90 MCG INH INH SCH (08:36)
[2019-02-12] MEDS: PANTOprazole 40 MG TAB PO SCH (08:37)
[2019-02-12] MEDS: FINASTERIDE 5 MG TAB PO SCH (08:37)
[2019-02-12] MEDS: CETIRIZINE HCL 10 MG TABLET PO SCH (08:37)
[2019-02-12] MEDS: DOCUSATE SODIUM 100 MG CAP PO SCH (08:37)
[2019-02-12] MEDS ORDERED: predniSONE 20 MG TAB PO SCH (09:00)
--- NOTE | 2019-02-12 11:49 | Discharge Summary ---
Date of Service February 12, 2019 Admission HPI Per Admitting Provider Mr. Shetty is a 73 year old male with past medical history of COPD, Stage IV Lung Cancer, Bladder cancer, HTN, HLD, BPH who presented with shortness of breath. He was admitted at the end of December for polyarticular arthritis -- pt. is on a tapering dose of Prednisone, currently at 20 mg PO daily. He woke up this morning with acute SOB. He walked to the bathroom and had to use his rescue inhaler after a few steps. Pt. used his rescue inhaler after traveling back from the bathroom as well. He had SOB both at rest and with exertion. Pt. uses chronic supplemental O2 at home -- 2L at rest, 4L with exertion. He had a recently diagnosed cellulitis of lower extremities; wound care has been completed by home health nurses. Redness/wounds now resolved but he has ongoing bilateral edema. Pt. reports he started taking Azithromycin x 5 days and was scheduled to complete his last dose this evening -- he cannot recall who started this med, believes it was his finish cleaner. Denies headache, lightheadedness, chest pain, pain into jaw or neck, nausea/vomiting, constipation or diarrhea, dysuria or hematuria, abd pain. ER course: CXR showed advanced emphysema, no acute change identified. Received Duoneb x 1 treatment and Solu-medrol 60 mg IV. Will admit for COPD exacerbation. Admission Exam Per Admitting Provider General: Resting comfortably HEENT: NC/AT; PERRLA with EOMI; [place] conjunctiva, MMM. No erythema of posterior pharynx Neck: Supple and nontender Cardiac: RRR Lungs: on 3L via NC; mild scattered wheezing noted throughout. Abdomen: Bowel normoactive X 4; Nontender to palpation Extremities: Warm. +2 LLE edema, +1-2 RLE edema. Dressing in place on LLE, no wounds were noted underneath. Neuro: No focal weakness Skin: No rash Principal Diagnosis COPD Exacerbation Discharge Exam General: Resting comfortably HEENT: NC/AT; PERRLA with EOMI; [place] conjunctiva, MMM. No erythema of posterior pharynx Neck: Supple and nontender Cardiac: RRR Lungs: on 3L via NC; CTA throughout Abdomen: Bowel normoactive X 4; Nontender to palpation Extremities: Warm. No LE edema noted. Neuro: No focal weakness Skin: No rash Discharge Data Allergies Allergy/AdvReac Type Severity Reaction Status Date / Time Bactrim Allergy Severe TONGUE Verified 12/02/17 08:11 SWELLS/FONG mupirocin Allergy Severe ANAPHYLAXIS Verified 02/08/19 11:39 sulfamethoxazole Allergy Severe TONGUE Verified 02/08/19 11:39 SWELLS/FONG trimethoprim Allergy Severe TONGUE Verified 02/08/19 11:39 SWELLS/FONG Iodinated Contrast Media Allergy Intermediate HIVES/ITCHI Verified 02/08/19 11:39 NG lisinopril Allergy Intermediate Tongue Verified 02/08/19 11:39 Swelling mustard Allergy Intermediate Hives, Verified 02/08/19 11:39 SOB, Itchy aspirin Allergy Mild ITCHY Verified 02/08/19 11:39 adhesive AdvReac Intermediate Tape - Rash Verified 02/08/19 11:39 Consultations 02/08/19 14:29 ED Decision to Admit Stat Hospital Course (1) COPD exacerbation: Acute SOB at admission -- likely related to COPD exacerbation. Breathing has improved, is at baseline. CXR showed advanced emphysema, otherwise negative. Completed course of Azithromycin on 02/08/19. Solu-Medrol IV was tapered to Prednisone on 02/12. Will complete 12 day taper as outpt then take 20 mg daily until follow up with rheumatology. Duonebs q6hrWA; Albuterol prn wheezing/SOB. Continued home Spiriva and Symbicort as prescribed. Will need to follow up with Dr. Dodge as outpatient along with PCP in 1-2 weeks. (2) Chronic respiratory failure with hypoxia: Requires 2L at rest, 4L via exertion -- currently stable on home requirements. (3) Polyarticular arthritis: Recently admitted at end of December 2018; on tapering course of Prednisone per finish cleaner - most recently on 20 mg PO daily. Will need long taper of Prednisone at discharge. Will need to follow up with finish cleaner. (4) DM w/o complication type II: Hgb A1C was 7.2 in December 2018; held home Metformin. SSI with gluc checks ac/hs - BG has been well controlled. Resume oral agent at discharge. (5) Lung cancer: Most recently received Opdivo -- follows with Dr. Anand. Immunotherapy now d/c'ed due to recently diagnosed polyarticular arthritis. F/u as outpatient. (6) Hematuria: Developed hematuria x 2 episodes on 02/10, now resolved. 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 Did have irregular appearing prostate during procedure; PSA is 5.85 (previously 5.63 in Feb 2018) Held Heparin ppx due to acute bleed. Has not received treatment for bladder cancer and right kidney cancer due to diagnosis of lung cancer. 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 (8) BPH with obstruction/lower urinary tract symptoms: Continued home Terazosin and Finasteride as prescribed. (9) Hypertension: Continued home Amlodipine 5 mg daily. (10) Hyperlipidemia: Continued Atorvastatin as prescribed. (11) Chronic pain syndrome: Continued home Methadone 10 mg QID. Continued Colace 100 mg BID for bowel regimen with Miralax prn. (12) Anemia: Baseline hgb ~10-11. Iron studies c/w anemia of chronic disease. (13) DVT prophylaxis: SCDs; d/c'ed Heparin in setting of hematuria. Stable for discharge to home on 02/12/19. Total Time Total Time Spent Total Time Spent (In Minutes): >30 minutes Total Time Includes: Examination of the Patient, Discharge Planning, Medication Reconciliation, Communication With Other Providers and Other Discharge Plan Discharge Items Patient Disposition: Home - Self-Care Reason For Visit: COPD EXACERBATION Discharge Diagnosis: COPD Exacerbation Condition on Discharge: Good Activity: As commented below Exercise/Sports: Gradually increase as tolerated Non-emergency contact: Primary Care Provider and [employer] Design Engineer Call non-emergency contact if: you have any medication questions, your symptoms worsen, your pain is not controlled, your pain is worsening, your pain is unusual for you, your pain is concerning for you and you have a fever Follow-up/Referrals: Jhonathan Dodge MD [Physician] - 02/17/19 8:30 am (A new follow up appt. has been made for you for 02/17 at 8:30am. Your appt. for Thursday, has been cancelled as Dr. Dodge will not be in the office.) Kathy Del Cid, C.R.N.P. [Primary Care Provider] - (PCP-MARY Quiñonez, office will call you to arrange a hospital follow up appointment.) PCP,NO [Physician] - Diet: Carb Consistent or DM2 Addtl Attending Provider Instructions: 1. COPD Exacerbation * Prednisone taper as follows: - Prednisone 60 mg (3 tablets) daily x 3 days (02/13-02/15) - Prednisone 50 mg (2.5 tablets) daily x 3 days (02/16-02/18) - Prednisone 40 mg (2 tablets) daily x 3 days (02/19-02/21) - Prednisone 30 mg (1.5 tablets) daily x 3 days (02/22-02/24) - Then take Prednisone 20 mg (1 tablet) daily until follow up with rheumato logy. * Please continue Albuterol nebulizers every 6 hours while awake with rescue inhaler as needed. * You will need to follow up with pulmonology as an outpatient. * Continue 2L via NC at rest, 4 L via NC with exertion. 2. Polyarticular Arthritis * Please continue Prednisone taper as noted above. * You will need to follow up with rheumatology as scheduled. 3. Lung Cancer * Please schedule a follow up with Dr. Anand to discuss further treatment. 4. 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 * You will need to schedule an appointment with urology at a closer date if you develop recurrent bleeding. 5. You will need to follow up with primary care provider in 1-2 weeks. Pending Studies at Discharge: No Stand-Alone Forms: My [facility] Medications and DC Order Prescriptions: New prednisone 20 mg tablet 60 mg PO DAILY Qty: 40 RF: 0 Continued cholecalciferol (vitamin D3) 400 unit capsule 400 unit PO DAILY RF: 0 atorvastatin 80 mg Tablet 80 mg PO PM RF: 0 ascorbic acid (vitamin C) [Vitamin C] 1,000 mg Tablet 1 g PO QAM RF: 0 cyanocobalamin (vitamin B-12) [Vitamin B-12] 100 mcg Tablet 100 mcg PO QAM RF: 0 methadone 10 mg Tablet 10 mg PO QID RF: 0 terazosin 2 mg Capsule 2 mg PO QPM RF: 0 docusate sodium 100 mg Capsule 100 mg PO BID RF: 0 pyridoxine (vitamin B6) [Vitamin B-6] 100 mg Tablet 100 mg PO QAM RF: 0 albuterol sulfate 90 mcg/actuation Hfa Aerosol Inhaler 2 puff INHALATION Q4H PRN (Reason: Shortness Of Breath) RF: 0 finasteride 5 mg Tablet 5 mg PO QAM RF: 0 Spiriva with HandiHaler 18 mcg Capsule, W/Inhalation Device 1 cap INHALATION QAM RF: 0 Symbicort 160-4.5 mcg/actuation Hfa Aerosol Inhaler 2 puff INHALATION BID RF: 0 magnesium oxide 400 mg magnesium Capsule 400 mg PO BID RF: 0 sennosides 8.6 mg Tablet 17.2 mg PO BID PRN (Reason: Constipation) RF: 0 amlodipine [Norvasc] 5 mg tablet 5 mg PO HS RF: 0 albuterol sulfate 1.25 mg/3 mL Solution For Nebulization 1.25 mg INHALATION QID RF: 0 cetirizine 5 mg Tablet 5 mg PO DAILY RF: 0 diclofenac sodium [Voltaren] 1 % Gel 4 applic EXT QID PRN (Reason: joint pain) Qty: 1 RF: 0 omeprazole 20 mg capsule,delayed release(DR/EC) 20 mg PO DAILY Qty: 30 RF: 2 metformin 500 mg tablet extended release 24 hr 500 mg PO DAILY Qty: 30 RF: 5 Discontinued prednisone 20 mg tablet PO UD RF: 0 lidocaine [Lidoderm] 5 % adhesive patch,medicated 1 patch TOP DAILY PRN (Reason: pain) Qty: 15 RF: 1 Discharge Orders: Discharge Order (Routine); Ordered 02/12/19 Ordered By: Yareli Goldberg/Other Patient Handouts: Diabetes Interventional Radiologist Complications, Hyperglycemia, Hypoglycemia, Diabetes Resources, Diabetes Type 2 Coping, Diabetes Type 2 Oral Meds, Diabetes Healthy Meals, Diabetes Carbs, Diabetes Exercise Benefits, Diabetes Exercise Get Started, Diabetes Activity Tips, Diabetes Manage A1C Test Admission Data Admit Date/Time: 02/08/19 16:58 Attending Provider: Kike Marcum Admit Provider: Kandice Puri Primary Care Provider: Kathy Del Cid Other Providers: Kandice Puri Other Interventions: Discharge Summary Assessment (RN) Last Done: 02/12/19 11:57 DC Date/Time DO NOT enter until pt leaves facility: 02/12/19 12:54 Supervising Physician Co-Signing Physician Notes During my face to face encounter, I performed a history of his hospital stay and physical examination on the patient. I answered all of the patient s questions and concerns. Discussed discharge plan with patient and APC. Patient here with a COPD exacerbation. Patient will be discharged on a prednisone taper.
== END 2019-02-12 12:54 | disposition home or self-care (01) | DRG 191 ==
LOC: ED 10:35 → 2N 16:58 → SUATTDRO 16:58 → 2N 18:21

== ENCOUNTER 2019-03-28 09:55 | Inpatient (IN) ==
[2019-03-28] MEDS ORDERED: ALBUT/IPRATROP 3MG/0.5MG NEB 3 ML VIAL INH STA (10:53)
[2019-03-28] MEDS ORDERED: methylPREDNISolone 60 MG in SYRINGE 1 ML IV STA (10:53)
[2019-03-28 11:03] LABS: Basophils # (auto) 0.02 K/uL (0-0.2); Basophils % (auto) 0.1 %; Eosinophils # (auto) 0.09 K/uL (0-0.5); Eosinophils % (auto) 0.7 %; Hematocrit (blood only) 39.7 % (42-52); Hemoglobin 12.5 g/dL (14.0-18.0); Immature Granulocytes # (auto) 0.37 K/uL (0.00-0.02); Immature Granulocytes % (auto) 2.7 %; Lymphocytes # (auto) 1.37 K/uL (1.2-3.4); Lymphocytes % (auto) 10.1 %; Mean Corpuscular Hemoglobin 29.6 pg (25-34); Mean Corpuscular Hgb Conc 31.5 g/dL (32-36); Mean Corpuscular Volume 94.1 fL (80-100); Mean Platelet Volume 9.6 fL (7.4-10.4); Monocytes # (auto) 0.95 K/uL (0.11-0.59); Neutrophils # (auto) 10.75 K/uL (1.4-6.5); Neutrophils % (auto) 79.4 %; Platelet Count 129 K/uL (130-400); RDW Coefficient of Variation 18.2 % (11.5-14.5); Red Blood Count 4.22 M/uL (4.7-6.1); White Blood Count 13.55 K/uL (4.8-10.8)
[2019-03-28 11:09] LABS: INR 0.9 (0.9-1.1); Partial Thromboplastin Ratio 0.7; Partial Thromboplastin Time < 20.0 Seconds (21.0-31.0); Prothrombin Time 9.7 Seconds (9.0-12.0)
[2019-03-28 11:20] LABS: Alanine Aminotransferase 40 U/L (12-78); Albumin Level 3.1 gm/dl (3.4-5.0); Aspartate Aminotransferase 18 U/L (15-37); Blood Urea Nitrogen 23 mg/dl (7-18); Calcium 8.8 mg/dl (8.5-10.1); Carbon Dioxide 35 mmol/L (21-32); Chloride 97 mmol/L (98-107); Creatinine Clr Calc Pharmacy 85.1 ml/min; Est GFR (African American) 91.8; Est GFR (Non-African American) 79.2; Glucose 190 mg/dl (70-99); Potassium 3.8 mmol/L (3.5-5.1); Sodium 136 mmol/L (136-145)
[2019-03-28 11:25] LABS: Albumin Globulin Ratio 0.9 (0.9-2); Alkaline Phosphatase 74 U/L (45-117); Bilirubin,Total 0.1 mg/dl (0.2-1); Globulin 3.5 gm/dl (2.5-4.0); NT Pro B Type Natriuretic Pept 184 pg/ml (0-900); Total Protein 6.6 gm/dl (6.4-8.2); Troponin I < 0.015 ng/ml (0-0.045)
--- NOTE | 2019-03-28 11:27 | XRay Report ---
XR chest 1V portable HISTORY: 73 years-old Male SOB acute shortness of breath COMPARISON: Chest radiograph 02/08/2019, PET CT 01/24/2019 TECHNIQUE: Portable AP view of the chest FINDINGS: Cardiac silhouette is enlarged, unchanged. Emphysema with chronic interstitial coarsening. Linear sub segmental left basilar opacities suggest atelectasis. No pneumothorax, large pleural effusion or over t pulmonary edema. Multiple healed remote right-sided rib fractures. Pulmonary lesions compared on co mparison PET/CT are not well evaluated. Calcified granuloma of the right upper lobe redemonstrated. IMPRESSION: 1. Advanced emphysema with chronic interstitial coarsening. 2. Left basilar opacities suggest atelectasis/scarring. 3. Previously noted pulmonary lesions described on PET/CT are not well evaluated The above report was generated using voice recognition software. It may contain grammatical, syntax o r spelling errors. Electronically signed by: Mauricio Andre M.D. 03/28/2019 11:26 AM
[2019-03-28] MEDS ORDERED: methylPREDNISolone 125 MG/2 ML VIAL ONE (11:28)
[2019-03-28] MEDS ORDERED: SENNA 8.6 MG TAB PO PRN (14:34)
[2019-03-28] MEDS ORDERED: DICLOFENAC SOD 1% GEL 100 GM TUBE EXT PRN (14:34)
[2019-03-28] MEDS ORDERED: GLUCOSE 40% GEL 15 GM TUBE PO PRN (15:00)
[2019-03-28] MEDS ORDERED: GLUCAGON FOR INJ 1 MG VIAL IM PRN (15:00)
[2019-03-28] MEDS ORDERED: CARBOHYDRATES FOR HYPOGLYCEMIA PO PRN (15:00)
[2019-03-28] MEDS ORDERED: GLUCOSE 10 TABS/TUBE PO PRN (15:00)
[2019-03-28] MEDS ORDERED: DEXTROSE 50% 50 ML SYRINGE IV PRN (15:00)
--- NOTE | 2019-03-28 15:04 | History & Physical Report ---
Date of Service March 28, 2019 Assessment & Plan (1) Acute and chronic respiratory failure: admit med tele Titrate O2 - patient wears 3L at baseline and is requiring 4L at this time duonebs, solumedrol, home Spiriva CXR without acute process (2) Edema: Patient reporting 85 pound weight gain since the summer Lower extremity edema Doppler bilater LE Echo BNP was 184 (3) COPD exacerbation: Duonebs, solumedrol Continue Spiriva Titrate O2 per protocol (4) DM w/o complication type II: Hold metformin for now Last A1c in December 22.2 SS, bsgs ac & hs (5) BPH (benign prostatic hyperplasia): Continue terazosin, finasteride (6) Stage 4 lung cancer: currently not under treatment - patient with adverse reaction to Opdivo (7) Chronic pain: continue methadone (8) Hypertension: Continue amlodipine (9) Hyperlipidemia: Continue atorvastatin History of Present Illness Mr. Shetty presented to the ED today due to sob which began this morning. He is on 3L NC at baseline but had increased his O2 to 4L. His conversion developer recommended he report to the ED after he called him this morning. Patient reports that he has gained 85 pounds since this summer due to steroid use making him very hungry. His lower extremities have been edematous and he feels his belly is distended. He denies cough, chest pain, n/v/d, or sick contacts. He has a history of lung CA and prostate CA but currently treatments are on hold. Pmhx: COPD, stage IV lung CA, bladder CA, dyslipidemia, htn, bph, Primary Care Provider: Kathy Del Cid Allergies Allergy/AdvReac Type Severity Reaction Status Date / Time Bactrim Allergy Severe TONGUE Verified 12/02/17 08:11 SWELLS/FONG mupirocin Allergy Severe ANAPHYLAXIS Verified 03/28/19 10:36 sulfamethoxazole Allergy Severe TONGUE Verified 03/28/19 10:36 SWELLS/FONG trimethoprim Allergy Severe TONGUE Verified 03/28/19 10:36 SWELLS/FONG Iodinated Contrast Media Allergy Intermediate HIVES/ITCHI Verified 03/28/19 10:36 NG lisinopril Allergy Intermediate Tongue Verified 03/28/19 10:36 Swelling mustard Allergy Intermediate Hives, Verified 03/28/19 10:36 SOB, Itchy aspirin Allergy Mild ITCHY Verified 03/28/19 10:36 adhesive AdvReac Intermediate Tape - Rash Verified 03/28/19 10:36 Home Medications Home Medications Medication Instructions Recorded Confirmed Type albuterol sulfate 2 puff INHALATION Q4H PRN 03/30/18 03/28/19 History ascorbic acid (vitamin C) [Vitamin 1 g PO QAM 03/30/18 03/28/19 History C] atorvastatin 80 mg PO PM 03/30/18 03/28/19 History cyanocobalamin (vitamin B-12) 100 mcg PO QAM 03/30/18 03/28/19 History [Vitamin B-12] docusate sodium 100 mg PO BID 03/30/18 03/28/19 History finasteride 5 mg PO QAM 03/30/18 03/28/19 History methadone 10 mg PO QID 03/30/18 03/28/19 History pyridoxine (vitamin B6) [Vitamin 100 mg PO QAM 03/30/18 03/28/19 History B-6] terazosin 2 mg PO QPM 03/30/18 03/28/19 History cholecalciferol (vitamin D3) 400 400 unit PO DAILY cap 12/01/18 03/28/19 History unit capsule magnesium oxide 400 mg PO BID 12/03/18 03/28/19 History amlodipine [Norvasc] 5 mg PO HS 12/07/18 03/28/19 History sennosides 17.2 mg PO BID PRN 12/07/18 03/28/19 History albuterol sulfate 1.25 mg INHALATION QID 12/28/18 03/28/19 History cetirizine 5 mg PO DAILY 01/09/19 03/28/19 History diclofenac sodium [Voltaren] 4 applic EXT QID PRN #1 tube 01/15/19 03/28/19 Rx metformin 500 mg PO DAILY #30 tab 01/15/19 03/28/19 Rx omeprazole 20 mg PO DAILY #30 cap 01/15/19 03/28/19 Rx furosemide 20 mg tablet 20 mg PO BID tab 03/14/19 03/28/19 History potassium chloride ER 10 mEq 10 meq PO DAILY #30 tab 03/14/19 03/28/19 Rx tablet,extended release prednisone 10 mg tablet 10 mg PO DAILY #100 tab 03/14/19 03/28/19 Rx prednisone 20 mg tablet 20 mg PO BID 03/14/19 03/28/19 History tiotropium bromide 1.25 2 puffs INH DAILY 03/14/19 03/28/19 History mcg/actuation mist for inhalation prednisone 10 mg tablet 10 mg PO DAILY #100 tab 03/16/19 03/28/19 Rx Past Med/Surg History Medical History Chronic respiratory failure (Chronic) COPD (chronic obstructive pulmonary disease) (Chronic) Opioid dependence (Chronic) Bladder cancer metastasized to pelvic region (Acute) BPH (benign prostatic hyperplasia) (Chronic) COPD (chronic obstructive pulmonary disease) (Chronic) Elevated PSA (Chronic) H/O malignant neoplasm of skin (Chronic) Hyperlipidemia (Chronic) Non-small cell lung cancer (Chronic) CURRENTLY BEING TREATED W/ CHEMOTHERAPY Stroke (Chronic) 2009 - NO PERIPHERAL VISION RT SIDE - NO NEUROLOGIST Urothelial carcinoma (Chronic) H/O hematuria (Resolved) Hypertension (Resolved) Acute leg pain (Inactive) Left leg swelling (Inactive) Bladder cancer CURRENTLY BEING TREATED W/ CHEMOTHERAPY Chronic back pain Constipation Inguinal hernia BL Osteoarthritis Umbilical hernia Surgical History H/O prostate biopsy (Acute) H/O Moh's micrographic surgery for skin cancer (Resolved) H/O hand surgery (Resolved) H/O prostatectomy History of bronchoscopy W/ BIOPSY History of colonoscopy History of surgery TRANSURETHRAL RESECTION OF BLADDER TUMOR X 3 History of surgery PLACEMENT OF MEDIPORT W/ REMOVAL History of ureter stent W/ REMOVAL Family History Father , 69yo [place], DM, arthritis, HTN Diabetes Cardiac disorder Hypertension Mother , age 84 from stroke Cardiac disorder Hypertension Brother Diabetes Cardiac disorder Hypertension Cancer, face Sister History of kidney cancer Hypertension Unknown Lung cancer Leukemia Basal cell carcinoma Social History Preferred Language: Citizen Of [place] Communication Ability: Effective Visual Impairment: No Limitations 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 Beliefs That Will Affect Care: None marital status: marital status details: 1 son and 3 daughters Current Living Situation: Alone Current Living Situation Comment: apartment current occupational status: retired current occupation: [employer] Other Information That Helps Us Care for You: No Feels Safe at Home: Yes Safety Concerns: Feels Safe At This Time Smoking Status: Former smoker Tobacco Type: cigarettes ; Cigarettes Per Day: 1 ppd x 60 years; quit 1 month ago ; Second Hand Exposure: No ; Hx Alcohol Use: No Hx Substance Use: No caffeine: Yes (3 cups/day) during the past year weight has: decreased > 10 lbs Review of Systems Review of Systems: All systems reviewed & are unremarkable except as noted in HPI & below Physical Exam Physical Exam: General: no distress Eyes: normal inspection, PERLL Respiratory: chest non tender, bilateral diffuse expiratory wheezes, no respirat ory distress, no accessory muscle use Cardiac: regular rate and rhythm, no rub or gallop, no murmur, + 2 pitting edema lower extremities GI/: active bowel sounds, no abd pain or tenderness, soft, non distended Extremities: normal range of motion, normal strength, non tender Neuro:oriented x 3, moves all extremities Psych: alert, normal mood and affect Skin: normal color, dry Constitutional: WD/WN, vitals as above Eyes: normal visual kan by confrontation and + anicteric sclerae Neck: normal visual inspection and trachea midline Respiratory: normal respiratory effort; no respiratory distress Auscultation: + wheezes (expiratory only, minimal); no crackles Cardiovascular: Rate/Rhythm: regular rate and regular rhythm Gastrointestinal (Abdomen): Inspection/Auscultation: + abdomen distended Percussion/Palpation: abdomen nontender Musculoskeletal: Head/Neck/Chest: normocephalic and head atraumatic b/l 2+ pitting LE edema, + pedal pulses Skin: no rashes, warm and dry Neurologic: awake; not confused Speech / Cognition: normal speech Psychiatric: A+Ox3, euthymic affect Lymphatic: Exam as done by Kandice Puri DO Results & Data Vital Signs (Past 12 Hours) Vital Signs Temp Pulse Pulse Resp BP BP Pulse Ox 03/28/19 14:34 36.6 C 84 20 167/81 H 93 03/28/19 14:16 89 18 146/73 H 99 03/28/19 13:22 82 20 120/63 98 03/28/19 11:30 88 20 134/78 99 11/11/19 11:09 98 H 20 94 03/28/19 10:48 87 18 125/66 99 03/28/19 10:02 36.6 C 90 20 147/73 H 97 Code Status & VTE Plan Code Status full VTE Prophylaxis Plan VTE Prophylaxis will be ordered: Yes Supervising Physician Co-Signing Physician Notes Pt seen and examined by me on floor. 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 States this started abruptly this morning. He states that he had been on symbicort for some time until he recently felt that it had become ineffective. He d/w pulm and was switching to trilogy. He states that seemed to work the first time he used it, but he felt less and less benefit from it after that. He was changed to this around 03/14. He has been using his albuterol inhaler with some help until this AM. He states that his L LE swelling is much better recently but that the R is somewhat worse with some cramping noted the last few days. Swelling started in November. Tolerating PO without issue. Agree with HPI/ROS as noted by VENEER CLIPPER See above for my exam in PE section Agree with plan as outlined above SOB, likely COPD exacerbation given improvement s/p ED interventions Possibly some CHF component as well concerning for PE given LE swelling and onc status--unable to obtain CTA due to contrast allergy LE US pending Will have low threshold for heparin if desats again Will start heparin if US results suggest DVT Requesting gas-x for abd distention. Last bowel movement was this AM and was not constipated PG Care Time/CCT Total # of Minutes Spent Total Time Spent with Patient: Total time spent is greater than 50% in coordination of care (as documented) at patient's floor/unit and/or counseling patient: (1) Edema Edema type: unspecified Qualified Code(s): R60.9 - Edema, unspecified (2) Hyperlipidemia Hyperlipidemia type: mixed hyperlipidemia Qualified Code(s): E78.2 - Mixed hyperlipidemia (3) Stage 4 lung cancer Laterality: unspecified laterality Qualified Code(s): C34.90 - Malignant neoplasm of unspecified part of unspecified bronchus or lung (4) Hypertension Hypertension type: essential hypertension Qualified Code(s): I10 - Essential (primary) hypertension
[2019-03-28] MEDS: METHADONE HCL 10 MG TAB PO SCH ×2 (16:06→22:10)
[2019-03-28] MEDS ORDERED: SIMETHICONE 80 MG CHEW PO PRN (16:30)
[2019-03-28] MEDS ORDERED: SIMETHICONE 80 MG CHEW PO ONE (16:45)
[2019-03-28] MEDS: FUROSEMIDE 40 MG in SYRINGE 0 ML IV SCH ×2 (16:58→18:09)
--- NOTE | 2019-03-28 17:20 | Emergency Department Note ---
Entered by Chasidy Ramsey acting as a scribe for Reinaldo Tristan MD History of Present Illness General Chief complaint: Shortness of Breath/Dyspnea Time Seen by Provider: 03/28/19 10:45 Source: patient History of Present Illness Onset (ago): hour(s) 8 Location: chest Pain Consistency: + constant Quality: + other (shortness of breath) Associated symptoms: + chest pain (slight chest tightness); no cough Treatments prior to arrival: other (2 nebulizer treatments ) The patient is a 73 year old male, with past medical history of COPD, lung cancer, and bladder cancer, who presents to the Emergency Room with complaints of constant shortness of breath over the past 8 hours. The patient arrived via ambulance, and the patient was given 2 nebulizer treatments en route. The patient reports the breathing treatments helped symptoms. The patient states his shortness of breath began in the middle of the night at 0300, but the patient states he did not feel short of breath upon going to bed. The patient reports he currently can not walk more than 10 feet without losing his breath. The patient states he feels slight chest tightness, and he states his chest feels puffed up. The patient denies a cough. The patient states he typically is on oxygen, and he states he recently had his oxygen levels increased to 4 liters. The patient states he had no swelling to his legs yesterday, but he states he has had a history of fluid buildup to his legs in January. The patient states he is on furosemide for fluid buildup, and he states he has doubled up on his dosage amount over the last few days from recommendations from Dr. Dodge. The patient denies wearing a CPAP at night. The patient notes he has been taking prednisone. The patient reports he lives by himself. Home Medications Home Medications Medication Instructions Recorded Confirmed Type albuterol sulfate 2 puff INHALATION Q4H PRN 03/30/18 03/28/19 History ascorbic acid (vitamin C) [Vitamin 1 g PO QAM 03/30/18 03/28/19 History C] atorvastatin 80 mg PO PM 03/30/18 03/28/19 History cyanocobalamin (vitamin B-12) 100 mcg PO QAM 03/30/18 03/28/19 History [Vitamin B-12] docusate sodium 100 mg PO BID 03/30/18 03/28/19 History finasteride 5 mg PO QAM 03/30/18 03/28/19 History methadone 10 mg PO QID 03/30/18 03/28/19 History pyridoxine (vitamin B6) [Vitamin 100 mg PO QAM 03/30/18 03/28/19 History B-6] terazosin 2 mg PO QPM 03/30/18 03/28/19 History cholecalciferol (vitamin D3) 400 400 unit PO DAILY cap 12/01/18 03/28/19 History unit capsule magnesium oxide 400 mg PO BID 12/03/18 03/28/19 History amlodipine [Norvasc] 5 mg PO HS 12/07/18 03/28/19 History sennosides 17.2 mg PO BID PRN 12/07/18 03/28/19 History albuterol sulfate 1.25 mg INHALATION QID 12/28/18 03/28/19 History cetirizine 5 mg PO DAILY 01/09/19 03/28/19 History diclofenac sodium [Voltaren] 4 applic EXT QID PRN #1 tube 01/15/19 03/28/19 Rx metformin 500 mg PO DAILY #30 tab 01/15/19 03/28/19 Rx omeprazole 20 mg PO DAILY #30 cap 01/15/19 03/28/19 Rx furosemide 20 mg tablet 20 mg PO BID tab 03/14/19 03/28/19 History potassium chloride 10 mEq 10 meq PO DAILY #30 tab 03/14/19 03/28/19 Rx tablet,extended release prednisone 10 mg tablet 10 mg PO DAILY #100 tab 03/14/19 03/28/19 Rx prednisone 20 mg tablet 20 mg PO BID 03/14/19 03/28/19 History tiotropium bromide 1.25 2 puffs INH DAILY 03/14/19 03/28/19 History mcg/actuation mist for inhalation prednisone 10 mg tablet 10 mg PO DAILY #100 tab 03/16/19 03/28/19 Rx Allergies Allergy/AdvReac Type Severity Reaction Status Date / Time Bactrim Allergy Severe TONGUE Verified 12/02/17 08:11 SWELLS/FONG mupirocin Allergy Severe ANAPHYLAXIS Verified 03/28/19 10:36 sulfamethoxazole Allergy Severe TONGUE Verified 03/28/19 10:36 SWELLS/FONG trimethoprim Allergy Severe TONGUE Verified 03/28/19 10:36 SWELLS/FONG Iodinated Contrast Media Allergy Intermediate HIVES/ITCHI Verified 03/28/19 10:36 NG lisinopril Allergy Intermediate Tongue Verified 03/28/19 10:36 Swelling mustard Allergy Intermediate Hives, Verified 03/28/19 10:36 SOB, Itchy aspirin Allergy Mild ITCHY Verified 03/28/19 10:36 adhesive AdvReac Intermediate Tape - Rash Verified 03/28/19 10:36 Past Med/Surg History Medical History (Updated 04/02/19 @ 00:02 by Ez Scales) Acute leg pain (Inactive) Bladder cancer CURRENTLY BEING TREATED W/ CHEMOTHERAPY Bladder cancer metastasized to pelvic region (Acute) BPH (benign prostatic hyperplasia) (Chronic) Chronic back pain Chronic respiratory failure (Chronic) Constipation COPD (chronic obstructive pulmonary disease) (Chronic) COPD (chronic obstructive pulmonary disease) (Chronic) DVT prophylaxis Elevated PSA (Chronic) H/O hematuria (Resolved) H/O malignant neoplasm of skin (Chronic) Hyperlipidemia (Chronic) Hypertension (Resolved) Inguinal hernia BL Left leg swelling (Inactive) Non-small cell lung cancer (Chronic) CURRENTLY BEING TREATED W/ CHEMOTHERAPY Opioid dependence (Chronic) Osteoarthritis Stroke (Chronic) 2009 - NO PERIPHERAL VISION RT SIDE - NO NEUROLOGIST Umbilical hernia Urothelial carcinoma (Chronic) Surgical History H/O hand surgery (Resolved) H/O Moh's micrographic surgery for skin cancer (Resolved) H/O prostate biopsy (Acute) H/O prostatectomy History of bronchoscopy W/ BIOPSY History of colonoscopy History of surgery TRANSURETHRAL RESECTION OF BLADDER TUMOR X 3 History of surgery PLACEMENT OF MEDIPORT W/ REMOVAL History of ureter stent W/ REMOVAL Family History Father , 69yo [place], DM, arthritis, HTN Diabetes Cardiac disorder Hypertension Mother , age 84 from stroke Cardiac disorder Hypertension Brother Diabetes Cardiac disorder Hypertension Cancer, face Sister History of kidney cancer Hypertension Unknown Lung cancer Leukemia Basal cell carcinoma Social History Preferred Language: [place] Communication Ability: Effective Visual Impairment: No Limitations Hearing Ability: Bar Tacker Required: No Beliefs That Will Affect Care: None marital status: marital status details: 1 son and 3 daughters Current Living Situation: Alone Current Living Situation Comment: apartment current occupational status: 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 and A total of 10 systems reviewed and were otherwise negative Physical Exam Vital Signs Vital Signs - 24 hr 03/28/19 10:02 03/28/19 10:48 03/28/19 11:09 Temperature 36.6 C Temperature Source Oral Sepsis Recent Fever Within 48 Hours No Sepsis New/Unexplained Change in Mental Status No Sepsis Action Taken by Nursing No Action Required Pulse Rate 90 Pulse Rate [Finger] 87 98 H Respiratory Rate 20 18 20 Respiratory Effort / Characteristics Non-Labored Non-Labored Non-Labored Spontaneous Respiratory Depth Normal Normal Blood Pressure 147/73 H Blood Pressure [Right Arm] 125/66 Blood Pressure Mean 97 Blood Pressure Mean [Right Arm] 85 Pulse Oximetry 97 99 94 Oxygen Delivery Method Nasal Cannula Room Air Nasal Cannula Oxygen Flow Rate 4 4 03/28/19 11:30 Temperature Temperature Source Sepsis Recent Fever Within 48 Hours Sepsis New/Unexplained Change in Mental Status Sepsis Action Taken by Nursing Pulse Rate Pulse Rate [Finger] 88 Respiratory Rate 20 Respiratory Effort / Characteristics Non-Labored Respiratory Depth Normal Blood Pressure Blood Pressure [Right Arm] 134/78 Blood Pressure Mean Blood Pressure Mean [Right Arm] 96 Pulse Oximetry 99 Oxygen Delivery Method Nasal Cannula Oxygen Flow Rate 4 GENERAL: Patient is in no acute distress. HEENT: No acute trauma, normocephalic atraumatic, mucous membranes moist, no nasal congestion, no scleral icterus. NECK: No stridor, no adenopathy, no meningismus, trachea is midline. LUNGS: Markedly diminished breath sounds with wheezing bilaterally. Breath sounds are equal. Few scattered crackles heard. HEART: Without murmurs gallops or rubs, regular rate and rhythm. ABDOMEN: Soft, nontender, bowel sounds positive, no hernias, no peritonitis. EXTREMITIES: No cyanosis. Edema to right lower extremity more so than left lower extremity. Full range of motion of all the joints without pain or difficulty, no signs for acute trauma. NEUROLOGIC: Oriented x 3, no acute motor or sensory deficits, no focal weakness. SKIN: No rash, no jaundice, no diaphoresis. Course 1050: Past medical records reviewed. The patient was evaluated in room C10. A complete history and physical exam was performed. 1129: I discussed the patient's case with Dr. Shukla. Dr. Dodge recommends hospitalization. 1134: I reviewed the patient's case with Dr. Dial-[facility] Hospitalist. Dr. Dial will evaluate the patient for further management. Consultations Consultation #1: I discussed the patient's case with Dr. Shukla. Dr. Dodge recommends hospitalization. Time: 11:29 Consultation #2: I reviewed the patient's case with Dr. Dial-[facility] Hospitalist. Dr. Dial will evaluate the patient for further management. Time: 11:34 Administered Medications Amlodipine Besylate (Norvasc) 5 mg PO HS [facility] Stop: 04/27/19 20:59 Last Admin: 04/01/19 20:33 Dose: 5 mg Documented by: [id number] Admin: 03/31/19 20:56 Dose: 5 mg Documented by: [id number] Admin: 03/30/19 21:05 Dose: 5 mg Documented by: [id number] Admin: 03/29/19 20:32 Dose: 5 mg Documented by: [id number] Admin: 03/28/19 20:35 Dose: 5 mg Documented by: [id number] Atorvastatin Calcium (Lipitor) 80 mg PO PM [facility] Stop: 04/27/19 20:59 Last Admin: 04/01/19 20:31 Dose: 80 mg Documented by: [id number] Admin: 03/31/19 20:56 Dose: 80 mg Documented by: [id number] Admin: 03/30/19 21:05 Dose: 80 mg Documented by: [id number] Admin: 03/29/19 20:33 Dose: 80 mg Documented by: [id number] Admin: 03/28/19 20:36 Dose: 80 mg Documented by: [id number] Azithromycin (Zithromax) 250 mg PO [id number]@0900 [facility] Stop: 04/08/19 08:59 Last Admin: 04/01/19 09:43 Dose: 250 mg Documented by: [id number] Budesonide/Formoterol Fumarate (Symbicort 160mcg/4.5mcg) 2 puffs INH BID [facility] Stop: 04/28/19 20:59 Last Admin: 04/02/19 08:23 Dose: 2 puffs Documented by: [id number] Admin: 04/01/19 20:33 Dose: 2 puffs Documented by: [id number] Admin: 04/01/19 09:09 Dose: 2 puffs Documented by: [id number] Admin: 03/31/19 20:59 Dose: 2 puffs Documented by: [id number] Admin: 03/31/19 09:20 Dose: 2 puffs Documented by: [id number] Admin: 03/30/19 21:07 Dose: 2 puffs Documented by: [id number] Admin: 03/30/19 08:24 Dose: 2 puffs Documented by: [id number] Admin: 03/29/19 20:36 Dose: 2 puffs Documented by: [id number] Cetirizine HCl (Zyrtec) 5 mg PO DAILY [facility] Stop: 04/28/19 08:59 Last Admin: 04/02/19 08:21 Dose: 5 mg Documented by: [id number] Admin: 04/01/19 09:09 Dose: 5 mg Documented by: [id number] Admin: 03/31/19 09:24 Dose: 5 mg Documented by: [id number] Admin: 03/30/19 08:20 Dose: 5 mg Documented by: [id number] Admin: 03/29/19 07:39 Dose: 5 mg Documented by: [id number] Cosigned by: [id number] Cyanocobalamin (Vitamin B-12) 100 mcg PO QAM [facility] Stop: 04/28/19 08:59 Last Admin: 04/02/19 08:22 Dose: 100 mcg Documented by: [id number] Admin: 04/01/19 09:10 Dose: 100 mcg Documented by: [id number] Admin: 03/31/19 09:23 Dose: 100 mcg Documented by: [id number] Admin: 03/30/19 08:24 Dose: 100 mcg Documented by: [id number] Admin: 03/29/19 07:50 Dose: 100 mcg Documented by: [id number] Cosigned by: [id number] Docusate Sodium (Colace) 100 mg PO BID [facility] Stop: 04/27/19 20:59 Last Admin: 04/02/19 08:21 Dose: 100 mg Documented by: [id number] Admin: 04/01/19 20:32 Dose: 100 mg Documented by: [id number] Admin: 04/01/19 09:06 Dose: 100 mg Documented by: [id number] Admin: 03/31/19 20:56 Dose: 100 mg Documented by: [id number] Admin: 03/31/19 09:21 Dose: 100 mg Documented by: [id number] Admin: 03/30/19 21:06 Dose: 100 mg Documented by: [id number] Admin: 03/30/19 08:20 Dose: 100 mg Documented by: [id number] Admin: 03/29/19 20:33 Dose: 100 mg Documented by: [id number] Admin: 03/29/19 07:52 Dose: 100 mg Documented by: [id number] Cosigned by: [id number] Admin: 03/28/19 20:36 Dose: 100 mg Documented by: [id number] Finasteride (Proscar) 5 mg PO QAM [facility] Stop: 04/28/19 08:59 Last Admin: 04/02/19 08:21 Dose: 5 mg Documented by: [id number] Admin: 04/01/19 09:08 Dose: 5 mg Documented by: [id number] Admin: 03/31/19 09:21 Dose: 5 mg Documented by: [id number] Admin: 03/30/19 08:21 Dose: 5 mg Documented by: [id number] Admin: 03/29/19 07:49 Dose: 5 mg Documented by: [id number] Cosigned by: [id number] Furosemide (Lasix) 40 mg PO QAM [facility] Stop: 04/29/19 08:59 Last Admin: 04/02/19 08:23 Dose: 40 mg Documented by: [id number] Admin: 04/01/19 09:07 Dose: 40 mg Documented by: [id number] Admin: 03/31/19 09:23 Dose: 40 mg Documented by: [id number] Admin: 03/30/19 08:19 Dose: 40 mg Documented by: [id number] Heparin Sodium (Porcine) (Heparin Sodium (Porcine)) 5,000 units SQ Q12 [facility] Stop: 04/27/19 20:59 Last Admin: 04/02/19 08:23 Dose: 5,000 units Documented by: [id number] Cosigned by: [id number] Admin: 04/01/19 20:31 Dose: 5,000 units Documented by: [id number] Cosigned by: [id number] Admin: 04/01/19 09:05 Dose: 5,000 units Documented by: [id number] Cosigned by: [id number] Admin: 03/31/19 21:01 Dose: 5,000 units Documented by: [id number] Cosigned by: [id number] Admin: 03/31/19 09:08 Dose: 5,000 units Documented by: [id number] Cosigned by: [id number] Admin: 03/30/19 21:06 Dose: 5,000 units Documented by: [id number] Cosigned by: [id number] Admin: 03/30/19 08:25 Dose: 5,000 units Documented by: [id number] Cosigned by: [id number] Admin: 03/29/19 20:32 Dose: 5,000 units Documented by: [id number] Cosigned by: [id number] Admin: 03/29/19 07:46 Dose: 5,000 units Documented by: [id number] Cosigned by: [id number] Admin: 03/28/19 20:36 Dose: 5,000 units Documented by: [id number] Cosigned by: [id number] Insulin Aspart (Novolog Flexpen) 0 units SC ACHS [facility] Stop: 04/27/19 16:29 Last Admin: 04/02/19 08:24 Dose: Not Given Documented by: [id number] Cosigned by: [id number] Admin: 04/01/19 20:32 Dose: 1 units Documented by: [id number] Cosigned by: [id number] Admin: 04/01/19 17:22 Dose: 4 units Documented by: [id number] Cosigned by: [id number] Admin: 04/01/19 12:25 Dose: 2 units Documented by: [id number] Cosigned by: [id number] Admin: 04/01/19 09:05 Dose: 2 units Documented by: [id number] Cosigned by: [id number] Admin: 03/31/19 20:59 Dose: 1 units Documented by: [id number] Cosigned by: [id number] Admin: 03/31/19 17:59 Dose: 4 units Documented by: [id number] Cosigned by: [id number] Admin: 03/31/19 11:56 Dose: Not Given Documented by: [id number] Cosigned by: [id number] Admin: 03/31/19 09:07 Dose: 2 units Documented by: [id number] Cosigned by: [id number] Admin: 03/30/19 21:07 Dose: 2 units Documented by: [id number] Cosigned by: [id number] Admin: 03/30/19 17:23 Dose: 3 units Documented by: [id number] Cosigned by: [id number] Admin: 03/30/19 12:36 Dose: 2 units Documented by: [id number] Cosigned by: [id number] Admin: 03/30/19 08:19 Dose: 2 units Documented by: [id number] Cosigned by: [id number] Admin: 03/29/19 20:34 Dose: 1 units Documented by: [id number] Cosigned by: [id number] Admin: 03/29/19 17:16 Dose: 3 units Documented by: [id number] Cosigned by: [id number] Admin: 03/29/19 12:44 Dose: 2 units Documented by: [id number] Cosigned by: [id number] Admin: 03/29/19 07:55 Dose: 2 units Documented by: [id number] Cosigned by: [id number] Admin: 03/28/19 20:39 Dose: 3 units Documented by: [id number] Cosigned by: [id number] Admin: 03/28/19 18:10 Dose: 3 units Documented by: [id number] Cosigned by: [id number] Magnesium Oxide (Mag-Ox) 400 mg PO BID [facility] Stop: 04/27/19 20:59 Last Admin: 04/02/19 08:23 Dose: 400 mg Documented by: [id number] Admin: 04/01/19 20:31 Dose: 400 mg Documented by: [id number] Admin: 04/01/19 09:07 Dose: 400 mg Documented by: [id number] Admin: 03/31/19 20:59 Dose: 400 mg Documented by: [id number] Admin: 03/31/19 09:22 Dose: 400 mg Documented by: [id number] Admin: 03/30/19 21:07 Dose: 400 mg Documented by: [id number] Admin: 03/30/19 08:20 Dose: 400 mg Documented by: [id number] Admin: 03/29/19 20:31 Dose: 400 mg Documented by: [id number] Admin: 03/29/19 07:53 Dose: 400 mg Documented by: [id number] Cosigned by: [id number] Admin: 03/28/19 20:35 Dose: 400 mg Documented by: [id number] Methadone HCl (Dolophine) 10 mg PO Q6H [facility] Stop: 04/11/19 16:59 Last Admin: 04/02/19 05:55 Dose: 10 mg Documented by: [id number] Admin: 04/01/19 22:30 Dose: 10 mg Documented by: [id number] Admin: 04/01/19 17:31 Dose: 10 mg Documented by: [id number] Admin: 04/01/19 12:23 Dose: 10 mg Documented by: [id number] Admin: 04/01/19 04:30 Dose: 10 mg Documented by: [id number] Admin: 03/31/19 22:46 Dose: 10 mg Documented by: [id number] Admin: 03/31/19 16:20 Dose: 10 mg Documented by: [id number] Cosigned by: [id number] Admin: 03/31/19 11:50 Dose: 10 mg Documented by: [id number] Cosigned by: [id number] Admin: 03/31/19 05:07 Dose: 10 mg Documented by: [id number] Admin: 03/30/19 22:49 Dose: 10 mg Documented by: [id number] Admin: 03/30/19 17:30 Dose: 10 mg Documented by: [id number] Admin: 03/30/19 11:32 Dose: 10 mg Documented by: [id number] Admin: 03/30/19 04:56 Dose: 10 mg Documented by: [id number] Admin: 03/29/19 22:48 Dose: 10 mg Documented by: [id number] Admin: 03/29/19 17:39 Dose: 10 mg Documented by: [id number] Admin: 03/29/19 11:07 Dose: 10 mg Documented by: [id number] Admin: 03/29/19 06:04 Dose: 10 mg Documented by: [id number] Admin: 03/28/19 22:10 Dose: 10 mg Documented by: [id number] Admin: 03/28/19 16:06 Dose: 10 mg Documented by: [id number] Pantoprazole Sodium (Protonix) 40 mg PO DAILY [facility] Stop: 04/28/19 08:59 Last Admin: 04/02/19 08:21 Dose: 40 mg Documented by: [id number] Admin: 04/01/19 09:08 Dose: 40 mg Documented by: [id number] Admin: 03/31/19 09:21 Dose: 40 mg Documented by: [id number] Admin: 03/30/19 08:20 Dose: 40 mg Documented by: [id number] Admin: 03/29/19 07:41 Dose: 40 mg Documented by: [id number] Cosigned by: [id number] Potassium Chloride (Klor-Con M10) 10 meq PO DAILY [facility] Stop: 04/28/19 08:59 Last Admin: 04/02/19 08:22 Dose: 10 meq Documented by: [id number] Admin: 04/01/19 09:06 Dose: 10 meq Documented by: [id number] Admin: 03/31/19 09:21 Dose: 10 meq Documented by: [id number] Admin: 03/30/19 08:21 Dose: 10 meq Documented by: [id number] Admin: 03/29/19 07:52 Dose: 10 meq Documented by: [id number] Cosigned by: [id number] Prednisone (Prednisone) 40 mg PO DAILY [facility] Stop: 05/02/19 08:59 Last Admin: 04/02/19 08:22 Dose: 40 mg Documented by: [id number] Pyridoxine HCl (Vitamin B-6) 100 mg PO QAM [facility] Stop: 04/28/19 08:59 Last Admin: 04/02/19 08:22 Dose: 100 mg Documented by: [id number] Admin: 04/01/19 09:10 Dose: 100 mg Documented by: [id number] Admin: 03/31/19 09:22 Dose: 100 mg Documented by: [id number] Admin: 03/30/19 08:20 Dose: 100 mg Documented by: [id number] Admin: 03/29/19 07:51 Dose: 100 mg Documented by: [id number] Cosigned by: [id number] Simethicone (Mylicon) 80 mg PO Q6H PRN PRN Reason: distention Stop: 04/27/19 16:29 Last Admin: 03/28/19 23:28 Dose: 80 mg Documented by: [id number] Sodium Chloride (Alfalfa Nasal) 1 sprays NA Q4H PRN PRN Reason: Congestion Stop: 04/28/19 21:44 Last Admin: 03/29/19 22:49 Dose: 1 sprays Documented by: [id number] Terazosin HCl (Hytrin) 2 mg PO QPM [facility] Stop: 04/27/19 20:59 Last Admin: 04/01/19 20:31 Dose: 2 mg Documented by: [id number] Admin: 03/31/19 20:57 Dose: 2 mg Documented by: [id number] Admin: 03/30/19 21:06 Dose: 2 mg Documented by: [id number] Admin: 03/29/19 20:34 Dose: 2 mg Documented by: [id number] Admin: 03/28/19 20:35 Dose: 2 mg Documented by: [id number] Tiotropium [place] (Spiriva) 1 puffs INH DAILY [facility] Stop: 04/28/19 08:59 Last Admin: 04/02/19 08:22 Dose: 1 puffs Documented by: [id number] Admin: 04/01/19 09:09 Dose: 1 puffs Documented by: [id number] Admin: 03/31/19 09:20 Dose: 1 puffs Documented by: [id number] Admin: 03/30/19 08:23 Dose: 1 puffs Documented by: [id number] Admin: 03/29/19 07:48 Dose: 1 puffs Documented by: [id number] Cosigned by: [id number] Vitamin D (Vitamin D3) 1,000 units PO DAILY [facility] Stop: 04/28/19 08:59 Last Admin: 04/02/19 08:21 Dose: 1,000 units Documented by: [id number] Admin: 04/01/19 09:09 Dose: 1,000 units Documented by: [id number] Admin: 03/31/19 09:24 Dose: 1,000 units Documented by: [id number] Admin: 03/30/19 08:21 Dose: 1,000 units Documented by: [id number] Admin: 03/29/19 07:53 Dose: 1,000 units Documented by: [id number] Cosigned by: [id number] Discontinued Medications Albuterol (Duoneb) 3 ml INH NOW STA Stop: 03/28/19 10:54 Last Admin: 03/28/19 11:06 Dose: 3 ml Documented by: [id number] Albuterol (Duoneb) 3 ml NEB Q4R [facility] Stop: 04/27/19 18:59 Last Admin: 04/01/19 11:05 Dose: 3 ml Documented by: [id number] Admin: 04/01/19 06:53 Dose: 3 ml Documented by: [id number] Admin: 04/01/19 03:38 Dose: 3 ml Documented by: [id number] Admin: 03/31/19 23:13 Dose: 3 ml Documented by: [id number] Admin: 03/31/19 18:57 Dose: 3 ml Documented by: [id number] Admin: 03/31/19 15:06 Dose: 3 ml Documented by: [id number] Admin: 03/31/19 11:01 Dose: 3 ml Documented by: [id number] Admin: 03/31/19 06:56 Dose: 3 ml Documented by: [id number] Admin: 03/31/19 02:08 Dose: 3 ml Documented by: [id number] Admin: 03/30/19 22:13 Dose: 3 ml Documented by: [id number] Admin: 03/30/19 19:06 Dose: 3 ml Documented by: [id number] Admin: 03/30/19 15:17 Dose: 3 ml Documented by: [id number] Admin: 03/30/19 10:56 Dose: 3 ml Documented by: [id number] Admin: 03/30/19 07:07 Dose: 3 ml Documented by: [id number] Admin: 03/30/19 03:22 Dose: 3 ml Documented by: [id number] Admin: 03/29/19 23:11 Dose: 3 ml Documented by: [id number] Admin: 03/29/19 18:45 Dose: 3 ml Documented by: [id number] Admin: 03/29/19 14:58 Dose: 3 ml Documented by: [id number] Admin: 03/29/19 11:36 Dose: 3 ml Documented by: [id number] Admin: 03/29/19 07:54 Dose: 3 ml Documented by: [id number] Admin: 03/29/19 01:43 Dose: 3 ml Documented by: [id number] Admin: 03/28/19 22:14 Dose: 3 ml Documented by: [id number] Admin: 03/28/19 18:53 Dose: 3 ml Documented by: [id number] Methylprednisolone 60 mg/ (Syringe) 1.96 mls @ 1.5 mls/min IV NOW STA Stop: 03/28/19 10:54 Last Admin: 03/28/19 11:33 Dose: Not Given Documented by: [id number] Methylprednisolone 40 mg/ (Syringe) 0.64 mls @ 1.5 mls/min IV BID [facility] Stop: 04/27/19 20:59 Last Admin: 04/01/19 09:08 Dose: 1.5 mls/min Documented by: [id number] Admin: 03/31/19 20:55 Dose: 1.5 mls/min Documented by: [id number] Admin: 03/31/19 09:24 Dose: 1.5 mls/min Documented by: [id number] Admin: 03/30/19 21:05 Dose: 1.5 mls/min Documented by: [id number] Admin: 03/30/19 08:22 Dose: 1.5 mls/min Documented by: [id number] Admin: 03/29/19 20:35 Dose: 1.5 mls/min Documented by: [id number] Admin: 03/29/19 07:43 Dose: 1.5 mls/min Documented by: [id number] Cosigned by: [id number] Admin: 03/28/19 20:34 Dose: 1.5 mls/min Documented by: [id number] Furosemide 40 mg/ Syringe 4 mls @ 4 mls/min IV [id number] [facility] Stop: 04/27/19 14:33 Last Admin: 03/29/19 07:46 Dose: 4 mls/min Documented by: [id number] Cosigned by: [id number] Admin: 03/28/19 18:09 Dose: 4 mls/min Documented by: [id number] Admin: 03/28/19 16:58 Dose: Not Given Documented by: [id number] Methylprednisolone (Solumedrol) Confirm Administered Dose 125 mg .ROUTE .STK-MED ONE Stop: 03/28/19 11:29 Last Admin: 03/28/19 11:33 Dose: 60 mg Documented by: [id number] Polyethylene Glycol (Miralax Powder Packet) 17 gm PO ONE ONE Stop: 03/30/19 15:09 Last Admin: 03/30/19 16:40 Dose: 17 gm Documented by: [id number] Simethicone (Mylicon) 80 mg PO ONE ONE Stop: 03/28/19 16:46 Last Admin: 03/28/19 18:09 Dose: 80 mg Documented by: [id number] Impression & Plan COPD exacerbation, Breath shortness, Acute bronchitis, Edema Discharge Plan Visit Data *Final* Discharge Date/Time: 03/28/19 14:19 Chief Complaint: Shortness of Breath/Dyspnea ED Provider: Reinaldo Tristan Discharge Problem: COPD exacerbation, Breath shortness, Acute bronchitis, Edema Patient Disposition: Admitted As Inpatient Discharge Instructions Interventions: ED Discharge Assessment Last Done: 03/28/19 14:19 Medical Decision Making Differential Diagnosis Differential diagnoses include exacerbation of COPD, bronchitis, pneumonia, congestive heart failure, anemia, myocardial infarction, electrolyte imbalance, fluid overload, pulmonary embolism, amongst others were considered. Medical Records Attestation: I reviewed the patient's medical records. Home Medications Current Medication List: was personally reviewed by me Laboratory Data Attestation: I reviewed the patient's lab results. Result diagrams: 04/01/19 07:12 03/31/19 05:46 Lab Results 03/28/19 03/28/19 03/28/19 Range/Units 10:07 10:07 10:07 WBC 13.55 H (4.8-10.8) K/uL RBC 4.22 L (4.7-6.1) M/uL Hgb 12.5 L (14.0-18.0) g/dL Hct 39.7 L (42-52) % MCV 94.1 (80-100) fL MCH 29.6 (25-34) pg MCHC 31.5 L (32-36) g/dL RDW Std Deviation 63.0 H (36.4-46.3) fL RDW Coeff of James 18.2 H (11.5-14.5) % Plt Count 129 L (130-400) K/uL MPV 9.6 (7.4-10.4) fL Immature Gran % (Auto) 2.7 % Neut % (Auto) 79.4 % Lymph % (Auto) 10.1 % Warrick % (Auto) 7.0 % Eos % (Auto) 0.7 % Baso % (Auto) 0.1 % Immature Gran # (Auto) 0.37 H (0.00-0.02) K/uL Neut # (Auto) 10.75 H (1.4-6.5) K/uL Lymph # (Auto) 1.37 (1.2-3.4) K/uL Warrick # (Auto) 0.95 H (0.11-0.59) K/uL Eos # (Auto) 0.09 (0-0.5) K/uL Baso # (Auto) 0.02 (0-0.2) K/uL PT 9.7 (9.0-12.0) Seconds INR 0.9 (0.9-1.1) APTT < 20.0 L (21.0-31.0) Seconds PTT Ratio 0.7 Sodium 136 (136-145) mmol/L Potassium 3.8 (3.5-5.1) mmol/L Chloride 97 L (98-107) mmol/L Carbon Dioxide 35 H (21-32) mmol/L Anion Gap 4.0 (3-11) BUN 23 H (7-18) mg/dl Creatinine 0.96 (0.6-1.4) mg/dl Est Cr Clr Drug Dosing 85.1 ml/min Est GFR ( Amer) 91.8 Est GFR (Non-Af Amer) 79.2 BUN/Creatinine Ratio 24.0 H (10-20) Glucose 190 H (70-99) mg/dl POC Glucose (70-99) Calcium 8.8 (8.5-10.1) mg/dl Magnesium 2.0 (1.8-2.4) mg/dl Total Bilirubin 0.1 L (0.2-1) mg/dl AST 18 (15-37) U/L ALT 40 (12-78) U/L Alkaline Phosphatase 74 (45-117) U/L Troponin I < 0.015 (0-0.045) ng/ml NT-Pro-B Natriuret Pep 184 (0-900) pg/ml Total Protein 6.6 (6.4-8.2) gm/dl Albumin 3.1 L (3.4-5.0) gm/dl Globulin 3.5 (2.5-4.0) gm/dl Albumin/Globulin Ratio 0.9 (0.9-2) Specimen Hemolysis 03/28/19 03/28/19 03/29/19 Range/Units 17:20 20:38 06:14 WBC 15.21 H (4.8-10.8) K/uL RBC 4.04 L (4.7-6.1) M/uL Hgb 12.0 L (14.0-18.0) g/dL Hct 37.1 L (42-52) % MCV 91.8 (80-100) fL MCH 29.7 (25-34) pg MCHC 32.3 (32-36) g/dL RDW Std Deviation 60.9 H (36.4-46.3) fL RDW Coeff of James 17.9 H (11.5-14.5) % Plt Count 142 (130-400) K/uL MPV 9.6 (7.4-10.4) fL Immature Gran % (Auto) % Neut % (Auto) % Lymph % (Auto) % Warrick % (Auto) % Eos % (Auto) % Baso % (Auto) % Immature Gran # (Auto) (0.00-0.02) K/uL Neut # (Auto) (1.4-6.5) K/uL Lymph # (Auto) (1.2-3.4) K/uL Warrick # (Auto) (0.11-0.59) K/uL Eos # (Auto) (0-0.5) K/uL Baso # (Auto) (0-0.2) K/uL PT (9.0-12.0) Seconds INR (0.9-1.1) APTT (21.0-31.0) Seconds PTT Ratio Sodium (136-145) mmol/L Potassium (3.5-5.1) mmol/L Chloride (98-107) mmol/L Carbon Dioxide (21-32) mmol/L Anion Gap (3-11) BUN (7-18) mg/dl Creatinine (0.6-1.4) mg/dl Est Cr Clr Drug Dosing ml/min Est GFR ( Amer) Est GFR (Non-Af Amer) BUN/Creatinine Ratio (10-20) Glucose (70-99) mg/dl POC Glucose 208 H 212 H (70-99) Calcium (8.5-10.1) mg/dl Magnesium (1.8-2.4) mg/dl Total Bilirubin (0.2-1) mg/dl AST (15-37) U/L ALT (12-78) U/L Alkaline Phosphatase (45-117) U/L Troponin I (0-0.045) ng/ml NT-Pro-B Natriuret Pep (0-900) pg/ml Total Protein (6.4-8.2) gm/dl Albumin (3.4-5.0) gm/dl Globulin (2.5-4.0) gm/dl Albumin/Globulin Ratio (0.9-2) Specimen Hemolysis 03/29/19 03/29/19 03/29/19 Range/Units 06:14 07:15 11:09 WBC (4.8-10.8) K/uL RBC (4.7-6.1) M/uL Hgb (14.0-18.0) g/dL Hct (42-52) % MCV (80-100) fL MCH (25-34) pg MCHC (32-36) g/dL RDW Std Deviation (36.4-46.3) fL RDW Coeff of James (11.5-14.5) % Plt Count (130-400) K/uL MPV (7.4-10.4) fL Immature Gran % (Auto) % Neut % (Auto) % Lymph % (Auto) % Warrick % (Auto) % Eos % (Auto) % Baso % (Auto) % Immature Gran # (Auto) (0.00-0.02) K/uL Neut # (Auto) (1.4-6.5) K/uL Lymph # (Auto) (1.2-3.4) K/uL Warrick # (Auto) (0.11-0.59) K/uL Eos # (Auto) (0-0.5) K/uL Baso # (Auto) (0-0.2) K/uL PT (9.0-12.0) Seconds INR (0.9-1.1) APTT (21.0-31.0) Seconds PTT Ratio Sodium 136 (136-145) mmol/L Potassium 4.3 (3.5-5.1) mmol/L Chloride 96 L (98-107) mmol/L Carbon Dioxide 34 H (21-32) mmol/L Anion Gap 6.0 (3-11) BUN 29 H (7-18) mg/dl Creatinine 1.07 (0.6-1.4) mg/dl Est Cr Clr Drug Dosing 75.6 ml/min Est GFR ( Amer) 80.5 Est GFR (Non-Af Amer) 69.5 BUN/Creatinine Ratio 27.3 H (10-20) Glucose 165 H (70-99) mg/dl POC Glucose 183 H 184 H (70-99) Calcium 9.6 (8.5-10.1) mg/dl Magnesium (1.8-2.4) mg/dl Total Bilirubin (0.2-1) mg/dl AST (15-37) U/L ALT (12-78) U/L Alkaline Phosphatase (45-117) U/L Troponin I (0-0.045) ng/ml NT-Pro-B Natriuret Pep (0-900) pg/ml Total Protein (6.4-8.2) gm/dl Albumin (3.4-5.0) gm/dl Globulin (2.5-4.0) gm/dl Albumin/Globulin Ratio (0.9-2) Specimen Hemolysis Imaging Data Radiologist's Impression: Radiology results as stated below per my review and the radiologist's interpretation: XR chest 1V portable HISTORY: 73 years-old Male SOB acute shortness of breath COMPARISON: Chest radiograph 02/08/2019, PET CT 01/24/2019 TECHNIQUE: Portable AP view of the chest FINDINGS: Cardiac silhouette is enlarged, unchanged. Emphysema with chronic interstitial coarsening. Linear subsegmental left basilar opacities suggest atelectasis. No pneumothorax, large pleural effusion or overt pulmonary edema. Multiple healed remote right-sided rib fractures. Pulmonary lesions compared on comparison PET/CT are not well evaluated. Calcified granuloma of the right upper lobe redemonstrated. IMPRESSION: 1. Advanced emphysema with chronic interstitial coarsening. 2. Left basilar opacities suggest atelectasis/scarring. 3. Previously noted pulmonary lesions described on PET/CT are not well evaluated The above report was generated using voice recognition software. It may contain grammatical, syntax or spelling errors. Electronically signed by: Mauricio Andre M.D. 03/28/2019 11:26 AM ECG Data Attestation: I personally reviewed and interpreted this ECG as follows: Indication: + SOB/dyspnea Rate (beats per minute): 89 Rhythm: + normal sinus ECG ST segments: no ST depression and no ST elevation ECG Findings: + Other (QTC 420 ); no PACs and no PVCs Blood Pressure Blood Pressure Findings: Elevated blood pressure Blood Pressure Disposition: further management by hospitalist JENNIFER Narrative There is a mild leukocytosis at 13,000, this could be consistent with infection or his recent steroid use. Hemoglobin somewhat low at 12.5, the lower hemoglobin value is baseline for the patient. No worrisome coagulopathy. Renal panel testing did not show kidney failure or significant electrolyte abnormality. No worrisome liver enzyme elevation. Chest film shows some chronic findings, no pneumonia, no CHF. BNP was not elevated making CHF less likely. The patient was given a DuoNeb. This was his third DuoNeb in just about an hour. He received IV Solu-Medrol. The patient appears to have a bronchitis with a flare of his COPD. Despite multiple attempts as an outpatient to adjust his meds and to treat his situation, he has continued to worsen. I did speak with his youth services specialist. A hospital stay was recommended. He has failed outpatient treatment. Patient was informed of all his results. I did speak with case management. The on-call hospitalist was consulted. Discharge Problem: Acute bronchitis Qualifiers: Bronchitis organism: unspecified organism Qualified Code(s): J20.9 - Acute bronchitis, unspecified Edema Qualifiers: Edema type: unspecified Qualified Code(s): R60.9 - Edema, unspecified The scribe's documentation has been prepared under my direction and personally reviewed by me in its entirety. I confirm that the note above accurately reflects all work, treatment, procedures, and medical decision making performed by me.
--- NOTE | 2019-03-28 17:43 | Ultrasound Report ---
BILATERAL LOWER EXTREMITY VENOUS DOPPLER CLINICAL HISTORY: r/o dvt COMPARISON STUDY: Bilateral lower extremity Doppler June 16, 2018. Left lower extremity ultrasoun d January 09, 2019. TECHNIQUE: Sonography of the deep venous system of the bilateral lower extremities was performed. Co mpression and augmentation were evaluated. FINDINGS: The bilateral common femoral, superficial femoral and popliteal veins were compressible. A ugmentation was normal. Flow was shown within the deep calf vessels. Exam is mildly compromised due t o pain with compression. No thrombus was identified. A small left popliteal cyst is noted. IMPRESSION: No evidence of deep venous thrombus within the bilateral lower extremities. Electronically signed by: Giovanny Milian M.D. 03/28/2019 5:42 PM
[2019-03-28] MEDS: INSULIN ASPART 100 UNITS/ML 3 ML PEN SC SCH ×2 (18:10→20:39)
[2019-03-28] MEDS: ALBUT/IPRATROP 3MG/0.5MG NEB 3 ML VIAL NEB SCH ×2 (18:53→22:14)
[2019-03-28] MEDS: methylPREDNISolone 40 MG in SYRINGE 0 ML IV SCH (20:34)
[2019-03-28] MEDS: TERAZOSIN HCL 1 MG CAP PO SCH (20:35)
[2019-03-28] MEDS: MAGNESIUM OXIDE 400 MG TAB PO SCH (20:35)
[2019-03-28] MEDS: AMLODIPINE BESYLATE 5 MG TAB PO SCH (20:35)
[2019-03-28] MEDS: ATORVASTATIN 40 MG TAB PO SCH (20:36)
[2019-03-28] MEDS: DOCUSATE SODIUM 100 MG CAP PO SCH (20:36)
[2019-03-28] MEDS: HEPARIN SOD 5,000 UNIT/0.5 ML VIAL SQ SCH (20:36)
[2019-03-29] MEDS: ALBUT/IPRATROP 3MG/0.5MG NEB 3 ML VIAL NEB SCH ×6 (01:43→23:11)
[2019-03-29] MEDS: METHADONE HCL 10 MG TAB PO SCH ×4 (06:04→22:48)
[2019-03-29 06:45] LABS: Hematocrit (blood only) 37.1 % (42-52); Mean Corpuscular Hemoglobin 29.7 pg (25-34); Mean Corpuscular Hgb Conc 32.3 g/dL (32-36); Mean Corpuscular Volume 91.8 fL (80-100); Mean Platelet Volume 9.6 fL (7.4-10.4); Platelet Count 142 K/uL (130-400); RDW Coefficient of Variation 17.9 % (11.5-14.5); RDW Standard Deviation 60.9 fL (36.4-46.3); Red Blood Count 4.04 M/uL (4.7-6.1); White Blood Count 15.21 K/uL (4.8-10.8)
[2019-03-29 07:19] LABS: BUN Creatinine Ratio 27.3 (10-20); Calcium 9.6 mg/dl (8.5-10.1); Creatinine Clr Calc Pharmacy 75.6 ml/min; Est GFR (African American) 80.5; Est GFR (Non-African American) 69.5; Potassium 4.3 mmol/L (3.5-5.1)
[2019-03-29] MEDS: CETIRIZINE HCL 10 MG TABLET PO SCH (07:39)
[2019-03-29] MEDS: PANTOprazole 40 MG TAB PO SCH (07:41)
[2019-03-29] MEDS: methylPREDNISolone 40 MG in SYRINGE 0 ML IV SCH ×2 (07:43→20:35)
[2019-03-29] MEDS: HEPARIN SOD 5,000 UNIT/0.5 ML VIAL SQ SCH ×2 (07:46→20:32)
[2019-03-29] MEDS: FUROSEMIDE 40 MG in SYRINGE 0 ML IV SCH (07:46)
[2019-03-29] MEDS: TIOTROPIUM BROMIDE 5 PUFF/90 MCG INH INH SCH (07:48)
[2019-03-29] MEDS: FINASTERIDE 5 MG TAB PO SCH (07:49)
[2019-03-29] MEDS: CYANOCOBALAMIN (VITAMIN B-12) 100 MCG TABLET PO SCH (07:50)
[2019-03-29] MEDS: PYRIDOXINE HCL 50 MG TAB PO SCH (07:51)
[2019-03-29] MEDS: DOCUSATE SODIUM 100 MG CAP PO SCH ×2 (07:52→20:33)
[2019-03-29] MEDS: POTASSIUM CHLORIDE 10 MEQ TABCR PO SCH (07:52)
[2019-03-29] MEDS: CHOLECALCIFEROL 1,000 UNITS TAB PO SCH (07:53)
[2019-03-29] MEDS: MAGNESIUM OXIDE 400 MG TAB PO SCH ×2 (07:53→20:31)
[2019-03-29] MEDS: INSULIN ASPART 100 UNITS/ML 3 ML PEN SC SCH ×4 (07:55→20:34)
--- NOTE | 2019-03-29 13:47 | Hospitalist Progress Note ---
Date of Service March 29, 2019 Assessment & Plan (1) Acute and chronic respiratory failure: Titrate O2 - patient wears 3L at baseline and is requiring 4L at this time though he is saturating mid 90s at this point duonebs, solumedrol, home Spiriva - discontinue Trelegy and resume Symbicort as patient did not feel Trelegy was working for him CXR without acute process Some of patient's dyspnea may be due to deconditioning and weight gain - will order PT/OT (2) Edema: Patient reporting 85 pound weight gain since the summer Lower extremity edema Doppler bilateral LE without dvt Echo without evidence of heart failure BNP was 184 Given IV furosemide x 3 doses - will change to 40 mg po daily (3) COPD exacerbation: Duonebs, solumedrol Continue Spiriva - will add Symbicort and dc Trelegy as patient does not feel this is helping him Titrate O2 per protocol (4) DM w/o complication type II: Hold metformin for now Last A1c in December 22.2 SS, bsgs ac & hs (5) BPH (benign prostatic hyperplasia): Continue terazosin, finasteride (6) Stage 4 lung cancer: currently not under treatment - patient with adverse reaction to Opdivo (7) Chronic pain: continue methadone (8) Hypertension: Continue amlodipine (9) Hyperlipidemia: Continue atorvastatin (10) DVT prophylaxis: heparin subq Subjective Mr. Maldonado continues to feel very dyspneic though his saturations are near his baseline. He has no cough or chest pain. ROS Constitutional: no chills, aches, sweats or fever Respiratory: no sob,cough, sputum, or wheezing Cardiac: no chest pain, palpitations, edema, orthopnea or lightheadedness GI: no abdominal pain, nausea, vomiting, diarrhea or constipation : no dysuria or hesitancy Extremities: no joint pain or weakness Skin: no rash All other systems reviewed and negative Physical Exam Physical Exam: General: no distress Eyes: normal inspection, PERLL Respiratory: chest non tender, clear to auscultation, normal breath sounds, no respiratory distress, no accessory muscle use Cardiac: regular rate and rhythm, no rub or gallop, no murmur, +2 pitting edema lower extremities GI/: active bowel sounds, no abd pain or tenderness, soft, non distended Extremities: normal range of motion, normal strength, non tender Neuro/Psych: alert and oriented x 3, normal mood and affect Skin: normal color, dry Results & Data Vital Signs (Past 12 Hours) Vital Signs Temp Pulse Pulse Resp BP Pulse Ox 03/29/19 11:37 90 18 95 03/29/19 11:14 36.4 C L 98 H 16 138/71 96 03/29/19 08:58 98 H 03/29/19 07:55 87 16 98 03/29/19 07:26 36.7 C 88 14 123/67 98 03/29/19 04:00 36.6 C 96 H 20 126/67 95 PG Care Time/CCT Total # of Minutes Spent Total Time Spent with Patient: Total time spent is greater than 50% in coordination of care (as documented) at patient's floor/unit and/or counseling patient: (1) Edema Edema type: unspecified Qualified Code(s): R60.9 - Edema, unspecified (2) Stage 4 lung cancer Laterality: unspecified laterality Qualified Code(s): C34.90 - Malignant neoplasm of unspecified part of unspecified bronchus or lung (3) Hypertension Hypertension type: essential hypertension Qualified Code(s): I10 - Essential (primary) hypertension (4) Hyperlipidemia Hyperlipidemia type: mixed hyperlipidemia Qualified Code(s): E78.2 - Mixed hyperlipidemia
[2019-03-29] MEDS: AMLODIPINE BESYLATE 5 MG TAB PO SCH (20:32)
[2019-03-29] MEDS: ATORVASTATIN 40 MG TAB PO SCH (20:33)
[2019-03-29] MEDS: TERAZOSIN HCL 1 MG CAP PO SCH (20:34)
[2019-03-29] MEDS: BUDESONIDE/FORMOTEROL FUMARATE 160/4.5 60 PUFFS/INHALER INH SCH (20:36)
[2019-03-29] MEDS ORDERED: SODIUM CHLORIDE 0.65% NA SOLN 45 ML (OCEAN) PRN (21:45)
[2019-03-30] MEDS: ALBUT/IPRATROP 3MG/0.5MG NEB 3 ML VIAL NEB SCH ×6 (03:22→22:13)
[2019-03-30] MEDS: METHADONE HCL 10 MG TAB PO SCH ×4 (04:56→22:49)
[2019-03-30 05:39] LABS: Hematocrit (blood only) 37.3 % (42-52); Hemoglobin 11.9 g/dL (14.0-18.0); Mean Corpuscular Hemoglobin 29.3 pg (25-34); Mean Corpuscular Hgb Conc 31.9 g/dL (32-36); Mean Corpuscular Volume 91.9 fL (80-100); Platelet Count 130 K/uL (130-400); RDW Coefficient of Variation 18.3 % (11.5-14.5); RDW Standard Deviation 62.1 fL (36.4-46.3); Red Blood Count 4.06 M/uL (4.7-6.1); White Blood Count 15.44 K/uL (4.8-10.8)
[2019-03-30 06:12] LABS: BUN Creatinine Ratio 29.2 (10-20); Calcium 9.6 mg/dl (8.5-10.1); Creatinine Clr Calc Pharmacy 68.5 ml/min; Est GFR (African American) 71.5; Est GFR (Non-African American) 61.7; Potassium 4.1 mmol/L (3.5-5.1)
[2019-03-30] MEDS: FUROSEMIDE 40 MG TAB PO SCH (08:19)
[2019-03-30] MEDS: INSULIN ASPART 100 UNITS/ML 3 ML PEN SC SCH ×4 (08:19→21:07)
[2019-03-30] MEDS: MAGNESIUM OXIDE 400 MG TAB PO SCH ×2 (08:20→21:07)
[2019-03-30] MEDS: PANTOprazole 40 MG TAB PO SCH (08:20)
[2019-03-30] MEDS: DOCUSATE SODIUM 100 MG CAP PO SCH ×2 (08:20→21:06)
[2019-03-30] MEDS: CETIRIZINE HCL 10 MG TABLET PO SCH (08:20)
[2019-03-30] MEDS: PYRIDOXINE HCL 50 MG TAB PO SCH (08:20)
[2019-03-30] MEDS: POTASSIUM CHLORIDE 10 MEQ TABCR PO SCH (08:21)
[2019-03-30] MEDS: FINASTERIDE 5 MG TAB PO SCH (08:21)
[2019-03-30] MEDS: CHOLECALCIFEROL 1,000 UNITS TAB PO SCH (08:21)
[2019-03-30] MEDS: methylPREDNISolone 40 MG in SYRINGE 0 ML IV SCH ×2 (08:22→21:05)
[2019-03-30] MEDS: TIOTROPIUM BROMIDE 5 PUFF/90 MCG INH INH SCH (08:23)
[2019-03-30] MEDS: CYANOCOBALAMIN (VITAMIN B-12) 100 MCG TABLET PO SCH (08:24)
[2019-03-30] MEDS: BUDESONIDE/FORMOTEROL FUMARATE 160/4.5 60 PUFFS/INHALER INH SCH ×2 (08:24→21:07)
[2019-03-30] MEDS: HEPARIN SOD 5,000 UNIT/0.5 ML VIAL SQ SCH ×2 (08:25→21:06)
--- NOTE | 2019-03-30 11:30 | Hospitalist Progress Note ---
Date of Service March 30, 2019 Assessment & Plan (1) Acute and chronic respiratory failure: Titrate O2 - patient wears 3L at baseline and is requiring 4L at this time though he is saturating mid 90s at this point duonebs, solumedrol, home Spiriva - discontinued Trelegy and resumed Symbicort as patient did not feel Trelegy was working for him CXR without acute process Some of patient's dyspnea may be due to deconditioning and weight gain - will order PT/OT Dyspnea may also be due to abdominal distention - will order KUB (2) Edema: Patient reporting 85 pound weight gain since the summer Lower extremity edema Doppler bilateral LE without dvt Echo without evidence of heart failure BNP was 184 Given IV furosemide x 3 doses - changed to 40 mg po daily (3) COPD exacerbation: Duonebs, solumedrol Continue Spiriva - added Symbicort and dc'd Trelegy as patient does not feel this is helping him Titrate O2 per protocol (4) DM w/o complication type II: Hold metformin for now Last A1c in December 22.2 SS, bsgs ac & hs (5) BPH (benign prostatic hyperplasia): Continue terazosin, finasteride (6) Stage 4 lung cancer: currently not under treatment - patient with adverse reaction to Opdivo (7) Chronic pain: continue methadone (8) Hypertension: Continue amlodipine (9) Hyperlipidemia: Continue atorvastatin (10) DVT prophylaxis: heparin subq Subjective Mr. Shetty continues to feel dyspneic with minimal exertion. He is not coughing. He is requiring 4L NC, baseline is 3L NC. He has some abdominal discomfort and tenderness. No bowel movement over the last couple of days. ROS Constitutional: no chills, aches, sweats or fever Respiratory: no sob,cough, sputum, or wheezing Cardiac: no chest pain, palpitations, edema, orthopnea or lightheadedness GI: no abdominal pain, nausea, vomiting, diarrhea or constipation : no dysuria or hesitancy Extremities: no joint pain or weakness Skin: no rash All other systems reviewed and negative Physical Exam Physical Exam: General: no distress Eyes: normal inspection, PERLL Respiratory: chest non tender, clear to auscultation, normal breath sounds, no respiratory distress, no accessory muscle use Cardiac: regular rate and rhythm, no rub or gallop, no murmur, +1 pitting edema lower extremities GI/: active bowel sounds, no abd pain, distended and tender abdomen Extremities: normal range of motion, normal strength, non tender Neuro/Psych: alert and oriented x 3, normal mood and affect Skin: normal color, dry Results & Data Vital Signs (Past 12 Hours) Vital Signs Temp Pulse Pulse Resp BP Pulse Ox 03/30/19 10:58 88 16 98 03/30/19 07:50 97 H 20 149/76 H 94 03/30/19 07:10 90 18 96 03/30/19 07:00 89 03/30/19 04:00 36.4 C L 86 20 121/76 99 03/30/19 03:22 83 18 97 03/29/19 23:58 36.5 C 84 20 146/80 H 97 03/29/19 23:45 85 PG Care Time/CCT Total # of Minutes Spent Total Time Spent with Patient: Total time spent is greater than 50% in coordination of care (as documented) at patient's floor/unit and/or counseling patient: (1) Edema Edema type: unspecified Qualified Code(s): R60.9 - Edema, unspecified (2) Stage 4 lung cancer Laterality: unspecified laterality Qualified Code(s): C34.90 - Malignant neoplasm of unspecified part of unspecified bronchus or lung (3) Hypertension Hypertension type: essential hypertension Qualified Code(s): I10 - Essential (primary) hypertension (4) Hyperlipidemia Hyperlipidemia type: mixed hyperlipidemia Qualified Code(s): E78.2 - Mixed hyperlipidemia
--- NOTE | 2019-03-30 12:47 | XRay Report ---
KUB CLINICAL HISTORY: abdominal distention COMPARISON STUDY: CT of the abdomen and pelvis December 08, 2018. KUB December 10, 2018. FINDINGS: Exam is compromised by suboptimal penetration. There is no evidence for a bowel obstruction . A moderate to large amount of stool within the colon is noted. Minimal rectal stool is noted. IMPRESSION: 1. No evidence for a bowel obstruction. 2. Moderate to large amount stool within the colon. Minimal stool within the rectum. Electronically signed by: Giovanny Milian M.D. 03/30/2019 12:46 PM
[2019-03-30] MEDS ORDERED: POLYETHYLENE (MIRALAX) 17 GM PACK PO ONE (15:08)
[2019-03-30] MEDS: AMLODIPINE BESYLATE 5 MG TAB PO SCH (21:05)
[2019-03-30] MEDS: ATORVASTATIN 40 MG TAB PO SCH (21:05)
[2019-03-30] MEDS: TERAZOSIN HCL 1 MG CAP PO SCH (21:06)
[2019-03-31] MEDS: ALBUT/IPRATROP 3MG/0.5MG NEB 3 ML VIAL NEB SCH ×6 (02:08→23:13)
[2019-03-31] MEDS: METHADONE HCL 10 MG TAB PO SCH ×4 (05:07→22:46)
[2019-03-31 06:15] LABS: Hemoglobin 11.9 g/dL (14.0-18.0); Mean Corpuscular Hemoglobin 29.5 pg (25-34); Mean Corpuscular Hgb Conc 32.2 g/dL (32-36); Mean Corpuscular Volume 91.8 fL (80-100); Mean Platelet Volume 8.9 fL (7.4-10.4); Nucleated RBC # (auto) 0.03 K/uL (0-0); Nucleated RBC % (auto) 0.3 %; Platelet Count 127 K/uL (130-400); RDW Coefficient of Variation 18.2 % (11.5-14.5); RDW Standard Deviation 61.7 fL (36.4-46.3); Red Blood Count 4.03 M/uL (4.7-6.1); White Blood Count 12.93 K/uL (4.8-10.8)
[2019-03-31 06:52] LABS: BUN Creatinine Ratio 25.4 (10-20); Calcium 9.4 mg/dl (8.5-10.1); Creatinine Clr Calc Pharmacy 67.2 ml/min; Est GFR (African American) 68.2; Est GFR (Non-African American) 58.9; Potassium 4.4 mmol/L (3.5-5.1)
[2019-03-31] MEDS: INSULIN ASPART 100 UNITS/ML 3 ML PEN SC SCH ×4 (09:07→20:59)
[2019-03-31] MEDS: HEPARIN SOD 5,000 UNIT/0.5 ML VIAL SQ SCH ×2 (09:08→21:01)
[2019-03-31] MEDS: TIOTROPIUM BROMIDE 5 PUFF/90 MCG INH INH SCH (09:20)
[2019-03-31] MEDS: BUDESONIDE/FORMOTEROL FUMARATE 160/4.5 60 PUFFS/INHALER INH SCH ×2 (09:20→20:59)
[2019-03-31] MEDS: PANTOprazole 40 MG TAB PO SCH (09:21)
[2019-03-31] MEDS: POTASSIUM CHLORIDE 10 MEQ TABCR PO SCH (09:21)
[2019-03-31] MEDS: DOCUSATE SODIUM 100 MG CAP PO SCH ×2 (09:21→20:56)
[2019-03-31] MEDS: FINASTERIDE 5 MG TAB PO SCH (09:21)
[2019-03-31] MEDS: MAGNESIUM OXIDE 400 MG TAB PO SCH ×2 (09:22→20:59)
[2019-03-31] MEDS: PYRIDOXINE HCL 50 MG TAB PO SCH (09:22)
[2019-03-31] MEDS: FUROSEMIDE 40 MG TAB PO SCH (09:23)
[2019-03-31] MEDS: CYANOCOBALAMIN (VITAMIN B-12) 100 MCG TABLET PO SCH (09:23)
[2019-03-31] MEDS: CHOLECALCIFEROL 1,000 UNITS TAB PO SCH (09:24)
[2019-03-31] MEDS: methylPREDNISolone 40 MG in SYRINGE 0 ML IV SCH ×2 (09:24→20:55)
[2019-03-31] MEDS: CETIRIZINE HCL 10 MG TABLET PO SCH (09:24)
--- NOTE | 2019-03-31 14:03 | CT Scan Report ---
CT chest wo con CT DOSE: 799.96 mGycm CLINICAL HISTORY: 74 years-old Male with sob. Acute shortness of breath in a patient with history of bladder cancer. TECHNIQUE: Multiaxial CT images of the chest were performed without contrast. A dose lowering techni que was utilized adhering to the principles of ALARA. COMPARISON: PET CT 01/24/2019, CTA chest 06/30/2018 FINDINGS: Unremarkable thyroid. Calcified mediastinal and hilar lymph nodes with calcified pulmonary nodules co mpatible with prior granulomatous disease. Heart is normal in size with trace pericardial effusion. C oronary arterial calcifications. Moderate calcified plaque the thoracic aorta without aneurysm. Tortu osity of the descending thoracic aorta. Aberrant course of the right subclavian artery. Unremarkable unopacified pulmonary artery. Severe emphysema with hyperinflation. No pneumothorax or pleural effusion or overt pulmonary edema. L obular linear area of consolidation within the inferior segment lingula measures 4.6 x 1.7 cm, unchan ged. Mild bilateral bronchial wall thickening suggestive of bronchitis. There is no overt pulmonary e leobardo. Mild pleural-based consolidation adjacent to a subpleural right lower lobe calcified granuloma is unchanged suggestive of scarring with atelectasis. Soft tissue attenuating paraspinal mass at the level of T7 has increased in size now measuring 2.8 x 1.7 cm on image 117 series 4, previously measur ing 1.7 x 1.0 cm on the 01/24/2019 exam. Again, there is mild adjacent bony erosion of the T7 vertebral body. A portion of the mass appears to partially extend into the right neuroforamen on image 113 ser ies 4. Secretions are noted about the tracheobronchial tree. No acute process of the imaged upper abdomen. Lipoma of the left paraspinal musculature measures up t o 2.0 cm in transverse dimension. Degenerative changes of the shoulders and spine. Multiple healed re mote bilateral anterior rib fractures. No new suspicious bone lesions identified. Remote T6 and T7 co mpression deformities appear unchanged. Sclerotic thickening of the mid sternum suggests healed remot e fracture. Convex left curvature of the midthoracic spine. IMPRESSION: 1. Right-sided paraspinal mass adjacent to the right lower lobe at the level of T7 has increased in s ize from comparison now measuring 2.8 x 1.7 cm previously demonstrating hypermetabolic activity. Ther e is mild erosion of the adjacent vertebral body with partial extension of the mass into the right T6 -T7 neuroforamen. 2. Prior granulomatous disease. 3. No adenopathy or new pulmonary lesions identified. 4. Unchanged lobular linear consolidation of the inferior segment lingula, 4.6 cm. 5. Severe emphysema. Electronically signed by: Mauricio Andre M.D. 03/31/2019 2:01 PM
[2019-03-31 14:19] LABS: Base Excess ABG 7.8 mEq/L (-9-1.8); HCO3 ABG 33 mmol/L (19-24); Oxygen Saturation ABG 96.5 % (90-95); PCO2 ABG 46 mmHg (35-46); PO2 ABG 83 mm/Hg (80-95); pH ABG 7.47 (7.35-7.45)
[2019-03-31 14:20] LABS: Allen Test Pos (Pos)
--- NOTE | 2019-03-31 16:25 | Hospitalist Progress Note ---
Date of Service March 31, 2019 Assessment & Plan (1) Acute and chronic respiratory failure: Titrate O2 - patient wears 3L at baseline and is requiring 4L at this time though he is saturating mid 90s at this point duonebs, solumedrol, home Spiriva - discontinued Trelegy and resumed Symbicort as patient did not feel Trelegy was working for him CXR without acute process Some of patient's dyspnea may be due to deconditioning and weight gain - has been unable to participate in PT/OT due to dyspnea CT chest showed stable pleural lesion however he does have a paraspinal mass that has increased in size, no consolidation to suggest pna ABG without CO2 retention, normal PO2 Consulted pulmonology (2) Edema: Patient reporting 85 pound weight gain since the summer Lower extremity edema Doppler bilateral LE without dvt Echo without evidence of heart failure or right heart strain BNP was 184 Given IV furosemide x 3 doses - changed to 40 mg po daily (3) COPD exacerbation: Duonebs, solumedrol Continue Spiriva - added Symbicort and dc'd Trelegy as patient does not feel this is helping him Titrate O2 per protocol (4) DM w/o complication type II: Hold metformin for now Last A1c in December 22.2 SS, bsgs ac & hs (5) BPH (benign prostatic hyperplasia): Continue terazosin, finasteride (6) Stage 4 lung cancer: currently not under treatment - patient with adverse reaction to Opdivo CT chest as above (7) Chronic pain: continue methadone (8) Hypertension: Continue amlodipine (9) Hyperlipidemia: Continue atorvastatin (10) DVT prophylaxis: heparin subq Subjective Mr. Shetty continues to feel quite dyspneic. He is frustrated with his lack of improvement. ROS Constitutional: no chills, aches, sweats or fever Respiratory: no cough, sputum, or wheezing Cardiac: no chest pain, palpitations, edema, orthopnea or lightheadedness GI: no abdominal pain, nausea, vomiting, diarrhea or constipation : no dysuria or hesitancy Extremities: no joint pain or weakness Skin: no rash All other systems reviewed and negative Physical Exam Physical Exam: General: no distress Eyes: normal inspection, PERLL Respiratory: chest non tender, clear to auscultation, normal breath sounds, no respiratory distress, no accessory muscle use Cardiac: regular rate and rhythm, no rub or gallop, no murmur, +2 pitting edema GI/: active bowel sounds, no abd pain or tenderness, soft, non distended Extremities: normal range of motion, normal strength, non tender Neuro/Psych: alert and oriented x 3, normal mood and affect Skin: normal color, dry Results & Data Vital Signs (Past 12 Hours) Vital Signs Temp Pulse Pulse Resp BP BP Pulse Ox 03/31/19 15:13 83 03/31/19 15:08 72 16 96 03/31/19 11:59 36.3 C L 72 16 128/72 97 03/31/19 11:02 83 16 97 03/31/19 07:26 36.5 C 73 18 160/78 H 94 03/31/19 06:56 88 18 98 PG Care Time/CCT Total # of Minutes Spent Total Time Spent with Patient: Total time spent is greater than 50% in coordination of care (as documented) at patient's floor/unit and/or counseling patient: (1) Edema Edema type: unspecified Qualified Code(s): R60.9 - Edema, unspecified (2) Stage 4 lung cancer Laterality: unspecified laterality Qualified Code(s): C34.90 - Malignant neoplasm of unspecified part of unspecified bronchus or lung (3) Hypertension Hypertension type: essential hypertension Qualified Code(s): I10 - Essential (primary) hypertension (4) Hyperlipidemia Hyperlipidemia type: mixed hyperlipidemia Qualified Code(s): E78.2 - Mixed hyperlipidemia
[2019-03-31] MEDS: AMLODIPINE BESYLATE 5 MG TAB PO SCH (20:56)
[2019-03-31] MEDS: ATORVASTATIN 40 MG TAB PO SCH (20:56)
[2019-03-31] MEDS: TERAZOSIN HCL 1 MG CAP PO SCH (20:57)
[2019-04-01] MEDS: ALBUT/IPRATROP 3MG/0.5MG NEB 3 ML VIAL NEB SCH ×3 (03:38→11:05)
[2019-04-01] MEDS: METHADONE HCL 10 MG TAB PO SCH ×4 (04:30→22:30)
[2019-04-01 07:37] LABS: Hematocrit (blood only) 38.1 % (42-52); Hemoglobin 12.2 g/dL (14.0-18.0); Mean Corpuscular Hemoglobin 29.7 pg (25-34); Mean Corpuscular Volume 92.7 fL (80-100); Mean Platelet Volume 9.4 fL (7.4-10.4); Platelet Count 132 K/uL (130-400); RDW Coefficient of Variation 18.1 % (11.5-14.5); RDW Standard Deviation 61.6 fL (36.4-46.3); Red Blood Count 4.11 M/uL (4.7-6.1); White Blood Count 12.87 K/uL (4.8-10.8)
--- NOTE | 2019-04-01 08:49 | Pulmonary Consultation ---
Date of Consultation April 01, 2019 Assessment & Plan (1) Chronic respiratory failure with hypoxia: Impression: 74-year-old male with very severe obstructive lung disease, obesity, and lung and metastatic bladder cancer admitted with progressive shortness of breath. He has evidence of hypercarbic respiratory failure and significant hyperinflation on his PFTs which were performed almost [address] scan does not demonstrate any acute airspace opacity but does show some progression of the paraspinal lesion. Recommendations: 1. COPD: The patient is on an aggressive inhaler regimen currently consisting of Spiriva and Symbicort. He does not appear overtly bronchospastic at this point time and for his lungs. I do think a azithromycin 250 mg every Thursday may be beneficial from an anti-inflammatory perspective. Steroids can be weaned according to his ice skating coach for his arthropathy. Could consider other alternative agents including Daliresp and/or theophylline in the outpatient setting but would not start these acutely. 2. Chronic hypoxemic and hypercarbic respiratory failure: The patient's blood gas continues to demonstrate an elevated PCO2. He may have some degree of obesity hypoventilation syndrome contributing. Recommend outpatient sleep study. We will place him on a trial of nightly BiPAP to see if this is beneficial. If he feels better, consideration for outpatient trilogy may be appropriate. 3. Obesity: Weight loss will definitely be beneficial. I think the patient would benefit from outpatient pulmonary rehabilitation as well. 4. Metastatic adenocarcinoma, lung and uroepithelial. His CT scan demonstrates increased size of the paraspinous lesion concerning for progression of disease. There are notes indicating he was seen and treated by radiation oncology previously. I am unclear if additional radiation may be potentially delivered to this region and recommend consultation with radiation oncology given its p roximity to the spinal cord and potential for neurologic complications. 5. The patient appears to have some disconnect regarding the severity of his underlying obstructive lung disease and medical problems. We spent a considerable amount of time reviewing his advanced obstructive lung disease. In review of outpatient clinical notes it appears that this has been discussed with him previously however it does not appear that he has a full understanding or is willing to accept the severity of his underlying obstructive lung disease. Continued outpatient follow-up with will be essential. (2) Shortness of breath: (3) Lung cancer: Laterality: unspecified laterality Lung location: unspecified part of lung Qualified Code(s): C34.90 - Malignant neoplasm of unspecified part of unspecified bronchus or lung History of Present Illness Attending Physician: Ruy Silveira MD History of Present Illness Asked by hospitalist to assist in management of this patient with hypoxemic respiratory failure and advanced obstructive lung disease with non-small cell lung cancer. History is obtained from review electronic medical record as well as discussion with patient at bedside. Patient is a 74-year-old male who is followed by Dr. Dodge in the outpatient pulmonary clinic for advanced obstructive lung disease and chronic hypoxemic respiratory failure. Is a complicated history including a high-grade urothelial metastatic carcinoma and is been under the care of Dr. Anand with various chemotherapeutic regimens, most recently Opdivo. He also saw a radiation oncology with targeted radiation therapy to a paraspinal mass. The patient was taken off of Opdivo back in November. 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 He was placed on high-dose steroids and has been seen in the outpatient setting by rheumatology. He states that whenever his steroids are tapered below about 25 mg a day he has significant shortness of breath. His last PFTs were performed May 2017 and demonstrated very severe airflow obstruction with a bronchodilator response. The patient was again readmitted from the clinic with shortness of breath. CT scan did demonstrate progression of the paraspinal met but other sites of disease appeared stable. He has had a blood gas which demonstrated hypercarbic respiratory failure. He is not using noninvasive positive pressure ventilation at home. He is never completed pulmonary rehabilitation. Allergies Allergy/AdvReac Type Severity Reaction Status Date / Time Bactrim Allergy Severe TONGUE Verified 12/02/17 08:11 SWELLS/FONG mupirocin Allergy Severe ANAPHYLAXIS Verified 03/28/19 10:36 sulfamethoxazole Allergy Severe TONGUE Verified 03/28/19 10:36 SWELLS/FONG trimethoprim Allergy Severe TONGUE Verified 03/28/19 10:36 SWELLS/FONG Iodinated Contrast Media Allergy Intermediate HIVES/ITCHI Verified 03/28/19 10:36 NG lisinopril Allergy Intermediate Tongue Verified 03/28/19 10:36 Swelling mustard Allergy Intermediate Hives, Verified 03/28/19 10:36 SOB, Itchy aspirin Allergy Mild ITCHY Verified 03/28/19 10:36 adhesive AdvReac Intermediate Tape - Rash Verified 03/28/19 10:36 Home Medications Home Medications Medication Instructions Recorded Confirmed Type albuterol sulfate 2 puff INHALATION Q4H PRN 03/30/18 03/28/19 History ascorbic acid (vitamin C) [Vitamin 1 g PO QAM 03/30/18 03/28/19 History C] atorvastatin 80 mg PO PM 03/30/18 03/28/19 History cyanocobalamin (vitamin B-12) 100 mcg PO QAM 03/30/18 03/28/19 History [Vitamin B-12] docusate sodium 100 mg PO BID 03/30/18 03/28/19 History finasteride 5 mg PO QAM 03/30/18 03/28/19 History methadone 10 mg PO QID 03/30/18 03/28/19 History pyridoxine (vitamin B6) [Vitamin 100 mg PO QAM 03/30/18 03/28/19 History B-6] terazosin 2 mg PO QPM 03/30/18 03/28/19 History cholecalciferol (vitamin D3) 400 400 unit PO DAILY cap 12/01/18 03/28/19 History unit capsule magnesium oxide 400 mg PO BID 12/03/18 03/28/19 History amlodipine [Norvasc] 5 mg PO HS 12/07/18 03/28/19 History sennosides 17.2 mg PO BID PRN 12/07/18 03/28/19 History albuterol sulfate 1.25 mg INHALATION QID 12/28/18 03/28/19 History cetirizine 5 mg PO DAILY 01/09/19 03/28/19 History diclofenac sodium [Voltaren] 4 applic EXT QID PRN #1 tube 01/15/19 03/28/19 Rx metformin 500 mg PO DAILY #30 tab 01/15/19 03/28/19 Rx omeprazole 20 mg PO DAILY #30 cap 01/15/19 03/28/19 Rx furosemide 20 mg tablet 20 mg PO BID tab 03/14/19 03/28/19 History potassium chloride 10 mEq 10 meq PO DAILY #30 tab 03/14/19 03/28/19 Rx tablet,extended release prednisone 10 mg tablet 10 mg PO DAILY #100 tab 03/14/19 03/28/19 Rx prednisone 20 mg tablet 20 mg PO BID 03/14/19 03/28/19 History tiotropium bromide 1.25 2 puffs INH DAILY 03/14/19 03/28/19 History mcg/actuation mist for inhalation prednisone 10 mg tablet 10 mg PO DAILY #100 tab 03/16/19 03/28/19 Rx Patient History Medical History (Updated 04/01/19 @ 00:03 by Ez Scales) Acute leg pain (Inactive) Bladder cancer CURRENTLY BEING TREATED W/ CHEMOTHERAPY Bladder cancer metastasized to pelvic region (Acute) BPH (benign prostatic hyperplasia) (Chronic) Chronic back pain Chronic respiratory failure (Chronic) Constipation COPD (chronic obstructive pulmonary disease) (Chronic) COPD (chronic obstructive pulmonary disease) (Chronic) DVT prophylaxis Elevated PSA (Chronic) H/O hematuria (Resolved) H/O malignant neoplasm of skin (Chronic) Hyperlipidemia (Chronic) Hypertension (Resolved) Inguinal hernia BL Left leg swelling (Inactive) Non-small cell lung cancer (Chronic) CURRENTLY BEING TREATED W/ CHEMOTHERAPY Opioid dependence (Chronic) Osteoarthritis Stroke (Chronic) 2009 - NO PERIPHERAL VISION RT SIDE - NO NEUROLOGIST Umbilical hernia Urothelial carcinoma (Chronic) Surgical History H/O hand surgery (Resolved) H/O Moh's micrographic surgery for skin cancer (Resolved) H/O prostate biopsy (Acute) H/O prostatectomy History of bronchoscopy W/ BIOPSY History of colonoscopy History of surgery TRANSURETHRAL RESECTION OF BLADDER TUMOR X 3 History of surgery PLACEMENT OF MEDIPORT W/ REMOVAL History of ureter stent W/ REMOVAL Family History Father , 69yo ID, DM, arthritis, HTN Diabetes Cardiac disorder Hypertension Mother , age 84 from stroke Cardiac disorder Hypertension Brother Diabetes Cardiac disorder Hypertension Cancer, face Sister History of kidney cancer Hypertension Unknown Lung cancer Leukemia Basal cell carcinoma Social History Preferred Language: Colombian Communication Ability: Effective Visual Impairment: No Limitations Hearing Ability: Towel Distributor Required: No Beliefs That Will Affect Care: None marital status: marital status details: 1 son and 3 daughters Current Living Situation: Alone Current Living Situation Comment: apartment current occupational status: retired 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 I have no additions or deletions Physical Exam Constitutional: WD/WN, vitals as above Morbidly obese. No acute distress Neck: trachea midline, no thyromegaly Respiratory: Breath sounds diminished throughout. No wheezing. Some basilar crackles Cardiovascular: RRR, no murmur, no edema Gastrointestinal (Abdomen): normal bowel sounds, soft, nontender, no hepatosplenomegaly Musculoskeletal: Extremities: extremities normal to inspection Skin: no rashes, warm and dry Neurologic: Nonfocal exam Lymphatic: no cervical lymphadenopathy Results & Data Vital Signs (Past 12 Hours) Vital Signs Temp Pulse Pulse Resp BP BP Pulse Ox 04/01/19 07:14 36.4 C L 87 18 132/69 97 04/01/19 06:53 98 H 18 98 04/01/19 04:39 36.6 C 91 H 20 134/73 95 04/01/19 03:30 88 20 95 04/01/19 00:00 93 H 03/31/19 23:13 87 18 96 03/31/19 22:41 36.4 C L 85 20 167/96 H 95 Laboratory Results 03/31/19 14:08 ABG pH 7.47 H ABG pCO2 46 ABG pO2 83 ABG HCO3 33 H ABG O2 Saturation 96.5 H ABG Base Excess 7.8 H 04/01/19 07:12 03/31/19 05:46 Diagnostic Findings PFTs from June 11, 2017 showed an FEV1 of 0.83 L or 30% predicted with an FVC of 2.63 L or 76% predicted. Ratio is reduced at 31. Bronchodilators were administered with 38% improvement in the FEV1. The FEV1 improved by a total of 310 mL's which is clinically significant. Imaging studies were independently reviewed. CT chest wo con CT DOSE: 799.96 mGycm CLINICAL HISTORY: 74 years-old Male with sob. Acute shortness of breath in a patient with history of bladder cancer. TECHNIQUE: Multiaxial CT images of the chest were performed without contrast. A dose lowering technique was utilized adhering to the principles of ALARA. COMPARISON: PET CT 01/24/2019, CTA chest 06/30/2018 FINDINGS: Unremarkable thyroid. Calcified mediastinal and hilar lymph nodes with calcified pulmonary nodules compatible with prior granulomatous disease. Heart is normal in size with trace pericardial effusion. Coronary arterial calcifications. Moderate calcified plaque the thoracic aorta without aneurysm. Tortuosity of the descending thoracic aorta. Aberrant course of the right subclavian artery. Unremarkable unopacified pulmonary artery. Severe emphysema with hyperinflation. No pneumothorax or pleural effusion or overt pulmonary edema. Lobular linear area of consolidation within the inferior segment lingula measures 4.6 x 1.7 cm, unchanged. Mild bilateral bronchial wall thickening suggestive of bronchitis. There is no overt pulmonary edema. Mild pleural-based consolidation adjacent to a subpleural right lower lobe calcified granuloma is unchanged suggestive of scarring with atelectasis. Soft tissue attenuating paraspinal mass at the level of T7 has increased in size now measuring 2.8 x 1.7 cm on image 117 series 4, previously measuring 1.7 x 1.0 cm on the 01/24/2019 exam. Again, there is mild adjacent bony erosion of the T7 vertebral body. A portion of the mass appears to partially extend into the right neuroforamen on image 113 series 4. Secretions are noted about the tracheobronchial tree. No acute process of the imaged upper abdomen. Lipoma of the left paraspinal musculature measures up to 2.0 cm in transverse dimension. Degenerative changes of the shoulders and spine. Multiple healed remote bilateral anterior rib fractures. No new suspicious bone lesions identified. Remote T6 and T7 compression deformities appear unchanged. Sclerotic thickening of the mid sternum suggests healed remote fracture. Convex left curvature of the midthoracic spine. IMPRESSION: 1. Right-sided paraspinal mass adjacent to the right lower lobe at the level of T7 has increased in size from comparison now measuring 2.8 x 1.7 cm previously demonstrating hypermetabolic activity. There is mild erosion of the adjacent vertebral body with partial extension of the mass into the right T6-T7 neuroforamen. 2. Prior granulomatous disease. 3. No adenopathy or new pulmonary lesions identified. 4. Unchanged lobular linear consolidation of the inferior segment lingula, 4.6 cm. 5. Severe emphysema. Electronically signed by: Mauricio Andre M.D. 03/31/2019 2:01 PM Echocardiogram from 03/28/2019 showed normal systolic and diastolic dysfunction. Right ventricle with normal size and function. No evidence of pulmonary hypertension. No significant valvular abnormalities identified PG Care Time/CCT Total # of Minutes Spent Total Time Spent with Patient: Total time spent is greater than 50% in coordination of care (as documented) at patient's floor/unit and/or counseling patient:
[2019-04-01] MEDS: HEPARIN SOD 5,000 UNIT/0.5 ML VIAL SQ SCH ×2 (09:05→20:31)
[2019-04-01] MEDS: INSULIN ASPART 100 UNITS/ML 3 ML PEN SC SCH ×4 (09:05→20:32)
[2019-04-01] MEDS: POTASSIUM CHLORIDE 10 MEQ TABCR PO SCH (09:06)
[2019-04-01] MEDS: DOCUSATE SODIUM 100 MG CAP PO SCH ×2 (09:06→20:32)
[2019-04-01] MEDS: MAGNESIUM OXIDE 400 MG TAB PO SCH ×2 (09:07→20:31)
[2019-04-01] MEDS: FUROSEMIDE 40 MG TAB PO SCH (09:07)
[2019-04-01] MEDS: FINASTERIDE 5 MG TAB PO SCH (09:08)
[2019-04-01] MEDS: methylPREDNISolone 40 MG in SYRINGE 0 ML IV SCH (09:08)
[2019-04-01] MEDS: PANTOprazole 40 MG TAB PO SCH (09:08)
[2019-04-01] MEDS: BUDESONIDE/FORMOTEROL FUMARATE 160/4.5 60 PUFFS/INHALER INH SCH ×2 (09:09→20:33)
[2019-04-01] MEDS: CHOLECALCIFEROL 1,000 UNITS TAB PO SCH (09:09)
[2019-04-01] MEDS: CETIRIZINE HCL 10 MG TABLET PO SCH (09:09)
[2019-04-01] MEDS: TIOTROPIUM BROMIDE 5 PUFF/90 MCG INH INH SCH (09:09)
[2019-04-01] MEDS: PYRIDOXINE HCL 50 MG TAB PO SCH (09:10)
[2019-04-01] MEDS: CYANOCOBALAMIN (VITAMIN B-12) 100 MCG TABLET PO SCH (09:10)
[2019-04-01] MEDS: AZITHROMYCIN 250 MG TAB PO SCH (09:43)
--- NOTE | 2019-04-01 12:53 | Hospitalist Progress Note ---
Date of Service April 01, 2019 Assessment & Plan (1) Acute and chronic respiratory failure: Titrate O2 - patient requiring 3L - wears 2 -4L at home Will discontinue duonebs and titrate solumedrol, continue home Spiriva - discontinued Trelegy and resumed Symbicort as patient did not feel Trelegy was working for him CXR without acute process Some of patient's dyspnea may be due to deconditioning and weight gain - has been unable to participate in PT/OT due to dyspnea CT chest showed stable pleural lesion however he does have a paraspinal mass that has increased in size, no consolidation to suggest pna - updated his oncologist Dr. Anand who will see him in April outpatient. Patient does not want radiation therapy. ABG without CO2 retention, normal PO2 Consulted pulmonology - recommends azithromycin 3 times per week, cpap trial this evening. Pulmonary rehab after discharge (2) Edema: Patient reporting 85 pound weight gain since the summer Lower extremity edema Doppler bilateral LE without dvt Echo without evidence of heart failure or right heart strain BNP was 184 Given IV furosemide x 3 doses - continue 40 mg po daily (3) COPD exacerbation: discontinue scheduled duonebs, titrate down steroids Continue Spiriva - added Symbicort and dc'd Trelegy as patient does not feel this is helping him Titrate O2 per protocol (4) DM w/o complication type II: Hold metformin for now Last A1c in December 22.2 SS, bsgs ac & hs (5) BPH (benign prostatic hyperplasia): Continue terazosin, finasteride (6) Stage 4 lung cancer: currently not under treatment - patient with adverse reaction to Opdivo CT chest as above Dr. Anand updated on increased size of paraspinal mass. Patient very adamant he does not want radiation therapy (7) Chronic pain: continue methadone (8) Hypertension: Continue amlodipine (9) Hyperlipidemia: Continue atorvastatin (10) DVT prophylaxis: heparin subq Subjective Mr. Shetty is quite frustrated in general today with his health issues. His shortness of breath is somewhat improved and he plans to participate in therapy today. Minimal cough productive of tavarez sputum. ROS Constitutional: no chills, aches, sweats or fever Respiratory: see HPI Cardiac: no chest pain, palpitations, edema, orthopnea or lightheadedness GI: no abdominal pain, nausea, vomiting, diarrhea or constipation : no dysuria or hesitancy Extremities: no joint pain or weakness Skin: no rash All other systems reviewed and negative Physical Exam Physical Exam: General: no distress Eyes: normal inspection, PERLL Respiratory: chest non tender, clear to auscultation, normal breath sounds, no respiratory distress, no accessory muscle use Cardiac: regular rate and rhythm, no rub or gallop, no murmur, +1 pitting edema lower extremities GI/: active bowel sounds, no abd pain or tenderness, soft, non distended Extremities: normal range of motion, normal strength, non tender Neuro/Psych: alert and oriented x 3, normal mood and affect Skin: normal color, dry Results & Data Vital Signs (Past 12 Hours) Vital Signs Temp Pulse Resp BP BP Pulse Ox 04/01/19 11:16 36.3 C L 85 22 154/76 H 95 04/01/19 11:05 97 H 18 97 04/01/19 07:14 36.4 C L 87 18 132/69 97 04/01/19 06:53 98 H 18 98 04/01/19 04:39 36.6 C 91 H 20 134/73 95 04/01/19 03:30 88 20 95 PG Care Time/CCT Total # of Minutes Spent Total Time Spent with Patient: Total time spent is greater than 50% in coordination of care (as documented) at patient's floor/unit and/or counseling patient: (1) Edema Edema type: unspecified Qualified Code(s): R60.9 - Edema, unspecified (2) Hyperlipidemia Hyperlipidemia type: mixed hyperlipidemia Qualified Code(s): E78.2 - Mixed hyperlipidemia (3) Stage 4 lung cancer Laterality: unspecified laterality Qualified Code(s): C34.90 - Malignant neoplasm of unspecified part of unspecified bronchus or lung (4) Hypertension Hypertension type: essential hypertension Qualified Code(s): I10 - Essential (primary) hypertension
[2019-04-01] MEDS: TERAZOSIN HCL 1 MG CAP PO SCH (20:31)
[2019-04-01] MEDS: ATORVASTATIN 40 MG TAB PO SCH (20:31)
[2019-04-01] MEDS: AMLODIPINE BESYLATE 5 MG TAB PO SCH (20:33)
[2019-04-02] MEDS: METHADONE HCL 10 MG TAB PO SCH ×4 (05:55→22:49)
[2019-04-02] MEDS: PANTOprazole 40 MG TAB PO SCH (08:21)
[2019-04-02] MEDS: DOCUSATE SODIUM 100 MG CAP PO SCH ×2 (08:21→21:04)
[2019-04-02] MEDS: CETIRIZINE HCL 10 MG TABLET PO SCH (08:21)
[2019-04-02] MEDS: FINASTERIDE 5 MG TAB PO SCH (08:21)
[2019-04-02] MEDS: CHOLECALCIFEROL 1,000 UNITS TAB PO SCH (08:21)
[2019-04-02] MEDS: POTASSIUM CHLORIDE 10 MEQ TABCR PO SCH (08:22)
[2019-04-02] MEDS: CYANOCOBALAMIN (VITAMIN B-12) 100 MCG TABLET PO SCH (08:22)
[2019-04-02] MEDS: PYRIDOXINE HCL 50 MG TAB PO SCH (08:22)
[2019-04-02] MEDS: TIOTROPIUM BROMIDE 5 PUFF/90 MCG INH INH SCH (08:22)
[2019-04-02] MEDS: predniSONE 20 MG TAB PO SCH (08:22)
[2019-04-02] MEDS: MAGNESIUM OXIDE 400 MG TAB PO SCH ×2 (08:23→21:02)
[2019-04-02] MEDS: FUROSEMIDE 40 MG TAB PO SCH (08:23)
[2019-04-02] MEDS: HEPARIN SOD 5,000 UNIT/0.5 ML VIAL SQ SCH ×2 (08:23→20:59)
[2019-04-02] MEDS: BUDESONIDE/FORMOTEROL FUMARATE 160/4.5 60 PUFFS/INHALER INH SCH ×2 (08:23→21:01)
[2019-04-02] MEDS: INSULIN ASPART 100 UNITS/ML 3 ML PEN SC SCH ×4 (08:24→20:58)
--- NOTE | 2019-04-02 10:13 | Pulmonology Progress Note ---
Date of Service April 02, 2019 Assessment & Plan (1) Chronic respiratory failure with hypoxia: Impression: 74-year-old male with very severe obstructive lung disease, obesity, and lung and metastatic bladder cancer admitted with progressive shortness of breath. He has evidence of hypercarbic respiratory failure and significant hyperinflation on his PFTs which were performed almost [address] scan does not demonstrate any acute airspace opacity but does show some progression of the paraspinal lesion. I suspect he has a significant component of deconditioning contributing as well Recommendations: 1. COPD: The patient is on an aggressive inhaler regimen currently consisting of Spiriva and Symbicort. He does not appear overtly bronchospastic at this point time and for his lungs. I do think a azithromycin 250 mg every Thursday may be beneficial from an anti-inflammatory perspective. 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 Could consider other alternative agents including Daliresp and/or theophylline in the outpatient setting but would not start these acutely. 2. Chronic hypoxemic and hypercarbic respiratory failure: The patient's blood gas continues to demonstrate an elevated PCO2. He may have some degree of obesity hypoventilation syndrome contributing. Recommend outpatient sleep study. We will place him on a trial of nightly BiPAP to see if this is beneficial. If he feels better, consideration for outpatient trilogy may be appropriate. 3. Obesity: Weight loss will definitely be beneficial. I think the patient would benefit from outpatient pulmonary rehabilitation as well. He has a signi ficant component of deconditioning which is likely contributing to his shortness of breath. This will not improve unless he increases his activity level. 4. Metastatic adenocarcinoma, lung and uroepithelial. His CT scan demonstrates increased size of the paraspinous lesion concerning for progression of disease. Discussed with radiation oncology. The lesion has progressed. He declined radiation therapy initially. I advised him that I would strongly reconsider radiation therapy to this lesion as it appears to be extending into the neuroforamina. If it continues to grow, he may develop cord issues which may or may not be treatable. He is taking it under advisement. He should follow-up with his oncologist and radiation oncology in the outpatient setting. If he remains an inpatient wishes to discuss this, radiation oncology would be happy to see him next week. Patient should follow-up with Dr. Dodge in the outpatient setting. (2) Shortness of breath: (3) Lung cancer: Laterality: unspecified laterality Lung location: unspecified part of lung Qualified Code(s): C34.90 - Malignant neoplasm of unspecified part of unspecified bronchus or lung Subjective Patient feels about the same. He was able to use BiPAP last night for a few hours. He is unclear if this offered him the clinical benefit. He felt it was uncomfortable over the bridge of his nose and his forehead. He continues to maintain a very sedentary lifestyle with minimal mobility Review of Systems Review of Systems: Unchanged from prior Physical Exam Constitutional: WD/WN, vitals as above Neck: trachea midline, no thyromegaly Cardiovascular: RRR, no murmur, no edema Gastrointestinal (Abdomen): normal bowel sounds, soft, nontender, no hepatosplenomegaly Musculoskeletal: Extremities: extremities normal to inspection Skin: no rashes, warm and dry Lymphatic: no cervical lymphadenopathy Results & Data Vital Signs (Past 12 Hours) Vital Signs Temp Pulse Pulse Resp BP BP Pulse Ox 04/02/19 07:39 36.1 C L 78 20 165/96 H 97 04/02/19 04:10 36.4 C L 85 20 127/76 96 04/02/19 00:00 71 04/01/19 23:47 36.4 C L 76 20 126/70 99 04/01/19 22:18 75 16 98 PG Care Time/CCT Total # of Minutes Spent Total Time Spent with Patient: Total time spent is greater than 50% in coordination of care (as documented) at patient's floor/unit and/or counseling patient:
[2019-04-02] MEDS ORDERED: POLYETHYLENE (MIRALAX) 17 GM PACK PO PRN (13:08)
--- NOTE | 2019-04-02 13:10 | Hospitalist Progress Note ---
Date of Service April 02, 2019 Assessment & Plan (1) Acute and chronic respiratory failure: Titrate O2 - patient requiring 3L - wears 2 -4L at home Will discontinue duonebs and titrate steroids, continue home Spiriva - discontinued Trelegy and resumed Symbicort as patient did not feel Trelegy was working for him CXR without acute process Some of patient's dyspnea may be due to deconditioning and weight gain CT chest showed stable pleural lesion however he does have a paraspinal mass that has increased in size, no consolidation to suggest pna - updated his oncologist Dr. Anand who will see him in April outpatient. Patient does not want radiation therapy. Risks of future paralysis discussed with patient. Consulted pulmonology - recommends azithromycin 3 times per week, Pulmonary rehab after discharge Pulmonology recommending Trilogy - Due to chronic respiratory failure secondary to severe COPD patient now requires non invasive home ventilator. Patient requires targeted volume mode and bi-level therapy with/without a rate would be ineffective. Ventilation is required to decrease the work of breathing and improve pulmonary status. (2) Edema: Patient reporting 85 pound weight gain since the summer Lower extremity edema Doppler bilateral LE without dvt Echo without evidence of heart failure or right heart strain BNP was 184 Given IV furosemide x 3 doses - continue 40 mg po daily (3) COPD exacerbation: discontinue scheduled duonebs, titrate down steroids Continue Spiriva - added Symbicort and dc'd Trelegy as patient does not feel this is helping him Titrate O2 per protocol (4) DM w/o complication type II: Hold metformin for now Last A1c in December 22.2 SS, bsgs ac & hs (5) BPH (benign prostatic hyperplasia): Continue terazosin, finasteride (6) Stage 4 lung cancer: currently not under treatment - patient with adverse reaction to Opdivo CT chest as above Dr. Anand updated on increased size of paraspinal mass. (7) Chronic pain: continue methadone (8) Hypertension: Continue amlodipine (9) Hyperlipidemia: Continue atorvastatin (10) DVT prophylaxis: heparin subq Dispo: PT/OT recommending home with home health, will transfer off telemetry. Subjective Mr. Maldonado's breathing has improved, he is not as short breath today, continues to be on 4L NC. He tolerated bipap last night until about 0300. He feels that his belly feels tight. He continues to be very frustrated with his situation. ROS Constitutional: no chills, aches, sweats or fever Respiratory: no sob,cough, sputum, or wheezing Cardiac: no chest pain, palpitations, edema, orthopnea or lightheadedness GI: no abdominal pain, nausea, vomiting, diarrhea or constipation : no dysuria or hesitancy Extremities: no joint pain or weakness Skin: no rash All other systems reviewed and negative Physical Exam Physical Exam: General: no distress Eyes: normal inspection, PERLL Respiratory: chest non tender, clear to auscultation, normal breath sounds, no respiratory distress, no accessory muscle use Cardiac: regular rate and rhythm, no rub or gallop, no murmur, no edema, no jvd GI/: active bowel sounds, no abd pain or tenderness, firm, distended Extremities: normal range of motion, normal strength, non tender Neuro/Psych: alert and oriented x 3, normal mood and affect Skin: normal color, dry Results & Data Vital Signs (Past 12 Hours) Vital Signs Temp Pulse Resp BP Pulse Ox 04/02/19 11:41 36.5 C 77 18 190/83 H 95 04/02/19 07:39 36.1 C L 78 20 165/96 H 97 04/02/19 04:10 36.4 C L 85 20 127/76 96 PG Care Time/CCT Total # of Minutes Spent Total Time Spent with Patient: Total time spent is greater than 50% in coordination of care (as documented) at patient's floor/unit and/or counseling patient: (1) Edema Edema type: unspecified Qualified Code(s): R60.9 - Edema, unspecified (2) Stage 4 lung cancer Laterality: unspecified laterality Qualified Code(s): C34.90 - Malignant neoplasm of unspecified part of unspecified bronchus or lung (3) Hypertension Hypertension type: essential hypertension Qualified Code(s): I10 - Essential (primary) hypertension (4) Hyperlipidemia Hyperlipidemia type: mixed hyperlipidemia Qualified Code(s): E78.2 - Mixed hyperlipidemia
[2019-04-02] MEDS: TERAZOSIN HCL 1 MG CAP PO SCH (21:02)
[2019-04-02] MEDS: AMLODIPINE BESYLATE 5 MG TAB PO SCH (21:03)
[2019-04-02] MEDS: ATORVASTATIN 40 MG TAB PO SCH (21:04)
[2019-04-03] MEDS: METHADONE HCL 10 MG TAB PO SCH ×4 (05:15→22:54)
[2019-04-03 06:06] LABS: Hematocrit (blood only) 38.7 % (42-52); Hemoglobin 12.5 g/dL (14.0-18.0); Mean Corpuscular Hemoglobin 29.8 pg (25-34); Mean Corpuscular Hgb Conc 32.3 g/dL (32-36); Mean Corpuscular Volume 92.1 fL (80-100); Mean Platelet Volume 9.7 fL (7.4-10.4); Platelet Count 123 K/uL (130-400); RDW Coefficient of Variation 17.8 % (11.5-14.5); RDW Standard Deviation 59.5 fL (36.4-46.3); White Blood Count 9.54 K/uL (4.8-10.8)
[2019-04-03] MEDS: INSULIN ASPART 100 UNITS/ML 3 ML PEN SC SCH ×4 (08:02→22:02)
[2019-04-03] MEDS: MAGNESIUM OXIDE 400 MG TAB PO SCH ×2 (08:03→22:04)
[2019-04-03] MEDS: POTASSIUM CHLORIDE 10 MEQ TABCR PO SCH (08:03)
[2019-04-03] MEDS: BUDESONIDE/FORMOTEROL FUMARATE 160/4.5 60 PUFFS/INHALER INH SCH ×2 (08:03→22:05)
[2019-04-03] MEDS: DOCUSATE SODIUM 100 MG CAP PO SCH ×2 (08:03→22:05)
[2019-04-03] MEDS: predniSONE 20 MG TAB PO SCH (08:03)
[2019-04-03] MEDS: FINASTERIDE 5 MG TAB PO SCH (08:03)
[2019-04-03] MEDS: CETIRIZINE HCL 10 MG TABLET PO SCH (08:03)
[2019-04-03] MEDS: CYANOCOBALAMIN (VITAMIN B-12) 100 MCG TABLET PO SCH (08:04)
[2019-04-03] MEDS: PYRIDOXINE HCL 50 MG TAB PO SCH (08:04)
[2019-04-03] MEDS: CHOLECALCIFEROL 1,000 UNITS TAB PO SCH (08:04)
[2019-04-03] MEDS: FUROSEMIDE 40 MG TAB PO SCH (08:04)
[2019-04-03] MEDS: PANTOprazole 40 MG TAB PO SCH (08:04)
[2019-04-03] MEDS: HEPARIN SOD 5,000 UNIT/0.5 ML VIAL SQ SCH ×2 (08:04→22:02)
[2019-04-03] MEDS: TIOTROPIUM BROMIDE 5 PUFF/90 MCG INH INH SCH (08:26)
[2019-04-03 08:33] LABS: Albumin Level 3.2 gm/dl (3.4-5.0); Calcium 9.5 mg/dl (8.5-10.1); Creatinine Clr Calc Pharmacy 70.3 ml/min; Est GFR (African American) 73.3; Est GFR (Non-African American) 63.2; Potassium 3.5 mmol/L (3.5-5.1)
[2019-04-03 08:36] LABS: Bilirubin,Total 0.6 mg/dl (0.2-1); Globulin 3.2 gm/dl (2.5-4.0); Total Protein 6.4 gm/dl (6.4-8.2)
--- NOTE | 2019-04-03 10:19 | Hospitalist Progress Note ---
Date of Service April 03, 2019 Assessment & Plan (1) Acute and chronic respiratory failure: Titrate O2 - patient requiring 3L - wears 2 -4L at home Continue to titrate steroids down, continue home Spiriva - discontinued Trelegy and resumed Symbicort as patient did not feel Trelegy was working for him CXR without acute process Some of patient's dyspnea may be due to deconditioning and weight gain CT chest showed stable pleural lesion however he does have a paraspinal mass that has increased in size, no consolidation to suggest pna - updated his oncologist Dr. Anand who will see him in April outpatient. Patient does not want radiation therapy. Risks of future paralysis discussed with patient. Consulted pulmonology - recommends azithromycin 3 times per week, Pulmonary rehab after discharge - [place] [facility] [place] Pul[place] recommending Trilogy - Due to chronic respiratory failure secondary to severe COPD patient now requires non invasive home ventilator. Patient requires targeted volume mode and bi-level therapy with/without a rate would be ineffective. Ventilation is required to decrease the work of breathing and improve pulmonary status. (2) Edema: Patient reporting 85 pound weight gain since the summer Lower extremity edema Doppler bilateral LE without dvt Echo without evidence of heart failure or right heart strain BNP was 184 Given IV furosemide x 3 doses - continue 40 mg po daily (3) COPD exacerbation: discontinue scheduled duonebs, titrate down steroids Continue Spiriva - added Symbicort and dc'd Trelegy as patient does not feel this is helping him Titrate O2 per protocol (4) DM w/o complication type II: Hold metformin for now Last A1c in December 22.2 SS, bsgs ac & hs Blood sugars have been mostly controlled - will likely improve as steroids are reduced (5) BPH (benign prostatic hyperplasia): Continue terazosin, finasteride (6) Stage 4 lung cancer: currently not under treatment - patient with adverse reaction to Opdivo CT chest as above Dr. Anand updated on increased size of paraspinal mass. (7) Chronic pain: continue methadone (8) Hypertension: Continue amlodipine (9) Hyperlipidemia: Continue atorvastatin (10) DVT prophylaxis: heparin subq Dispo: PT/OT recommending home with home health, patient's insurance is closed on the weekend. Will need to have Trilogy set up tomorrow and then patient can be discharged. Subjective Mr. Maldonado continues to feel frustrated with his shortness of breath though at this point he is about at his baseline. He was able to participate in therapy. He does get winded quickly ROS Constitutional: no chills, aches, sweats or fever Respiratory: no cough, sputum, or wheezing Cardiac: no chest pain, palpitations, edema, orthopnea or lightheadedness GI: no abdominal pain, nausea, vomiting, diarrhea or constipation : no dysuria or hesitancy Extremities: no joint pain or weakness Skin: no rash All other systems reviewed and negative Physical Exam Physical Exam: General: no distress Eyes: normal inspection, PERLL Respiratory: chest non tender, clear to auscultation, normal breath sounds, no respiratory distress, no accessory muscle use Cardiac: regular rate and rhythm, no rub or gallop, no murmur, +1 pitting edema lower extremities GI/: active bowel sounds, no abd pain or tenderness, soft, non distended Extremities: normal range of motion, normal strength, non tender Neuro/Psych: alert and oriented x 3, normal mood and affect Skin: normal color, dry Results & Data Vital Signs (Past 12 Hours) Vital Signs Temp Pulse Pulse Resp BP Pulse Ox 04/03/19 07:23 36.7 C 81 18 177/90 H 98 04/03/19 04:50 36.4 C L 79 20 147/80 H 94 04/02/19 22:40 90 18 98 04/02/19 22:38 36.4 C L 88 20 147/77 H 98 PG Care Time/CCT Total # of Minutes Spent Total Time Spent with Patient: Total time spent is greater than 50% in coordination of care (as documented) at patient's floor/unit and/or counseling patient: (1) Edema Edema type: unspecified Qualified Code(s): R60.9 - Edema, unspecified (2) Stage 4 lung cancer Laterality: unspecified laterality Qualified Code(s): C34.90 - Malignant neoplasm of unspecified part of unspecified bronchus or lung (3) Hypertension Hypertension type: essential hypertension Qualified Code(s): I10 - Essential (primary) hypertension (4) Hyperlipidemia Hyperlipidemia type: mixed hyperlipidemia Qualified Code(s): E78.2 - Mixed hyperlipidemia
--- NOTE | 2019-04-03 10:24 | Pulmonology Progress Note ---
Date of Service April 03, 2019 Assessment & Plan (1) Chronic respiratory failure with hypoxia: Impression: 74-year-old male with very severe obstructive lung disease, obesity, and lung and metastatic bladder cancer admitted with progressive shortness of breath. He has evidence of hypercarbic respiratory failure and significant hyperinflation on his PFTs which were performed almost [address] scan does not demonstrate any acute airspace opacity but does show some progression of the paraspinal lesion. I suspect he has a significant component of deconditioning contributing as well Recommendations: 1. COPD: The patient is on an aggressive inhaler regimen currently consisting of Spiriva and Symbicort. Continue azithromycin 3 times a week and wean steroids as tolerated for his arthralgias. Recommend outpatient pulmonary rehab 2. Chronic hypoxemic and hypercarbic respiratory failure: The patient's blood gas continues to demonstrate an elevated PCO2. He may have some degree of obesity hypoventilation syndrome contributing. Recommend outpatient sleep study. Consider trying to get set up for home trilogy 3. Obesity: Weight loss will definitely be beneficial. I think the patient would benefit from outpatient pulmonary rehabilitation as well. He has a sign ificant component of deconditioning which is likely contributing to his shortness of breath. This will not improve unless he increases his activity level. I advised the patient he needs to be up and walking the halls in the hallway. Doubtful he will be compliant 4. Metastatic adenocarcinoma, lung and uroepithelial. He continues to refuse appropriate care for his spinal lesion. I advised him that this may result in irreversible neurological injury. 5. Obesity: This is contributing to the patient's shortness of breath and pulmonary limitation. Exercise and weight loss were recommended. Consultation with a dehairing machine tender may be beneficial. Formal weight loss program such as weight watchers may be appropriate. Patient should follow-up with Dr. Dodge in the outpatient setting. The patient can be dismissed from the hospital when he feels his breathing has improved enough to be managed in the outpatient setting (2) Shortness of breath: (3) Lung cancer: Laterality: unspecified laterality Lung location: unspecified part of lung Qualified Code(s): C34.90 - Malignant neoplasm of unspecified part of unspecified bronchus or lung Subjective Patient again used BiPAP last night. He states he had to take it off around 1:00 in the morning due to discomfort on his nose. He thinks it may be offering him some benefit with regards to his breathing as he feels less short of breath. He is able to walk to the restroom without having uses he remains extremely sedentary. Review of Systems Review of Systems: Unchanged from prior Physical Exam Constitutional: WD/WN, vitals as above Neck: trachea midline, no thyromegaly Respiratory: Decreased breath signs bilaterally with faint expiratory wheezes on the right Cardiovascular: RRR, no murmur, no edema Gastrointestinal (Abdomen): normal bowel sounds, soft, nontender, no hepatosplenomegaly Musculoskeletal: Extremities: extremities normal to inspection Skin: no rashes, warm and dry Lymphatic: no cervical lymphadenopathy Results & Data Vital Signs (Past 12 Hours) Vital Signs Temp Pulse Pulse Resp BP Pulse Ox 04/03/19 07:23 36.7 C 81 18 177/90 H 98 04/03/19 04:50 36.4 C L 79 20 147/80 H 94 04/02/19 22:40 90 18 98 04/02/19 22:38 36.4 C L 88 20 147/77 H 98 PG Care Time/CCT Total # of Minutes Spent Total Time Spent with Patient: Total time spent is greater than 50% in coordination of care (as documented) at patient's floor/unit and/or counseling patient:
[2019-04-03] MEDS: TERAZOSIN HCL 1 MG CAP PO SCH (22:03)
[2019-04-03] MEDS: ATORVASTATIN 40 MG TAB PO SCH (22:03)
[2019-04-03] MEDS: AMLODIPINE BESYLATE 5 MG TAB PO SCH (22:05)
[2019-04-04] MEDS: METHADONE HCL 10 MG TAB PO SCH ×3 (05:06→16:20)
[2019-04-04] MEDS: INSULIN ASPART 100 UNITS/ML 3 ML PEN SC SCH ×4 (07:58→21:39)
[2019-04-04] MEDS: POTASSIUM CHLORIDE 10 MEQ TABCR PO SCH (09:54)
[2019-04-04] MEDS: HEPARIN SOD 5,000 UNIT/0.5 ML VIAL SQ SCH ×2 (09:54→21:41)
[2019-04-04] MEDS: predniSONE 10 MG TABLET PO SCH (09:56)
[2019-04-04] MEDS: CYANOCOBALAMIN (VITAMIN B-12) 100 MCG TABLET PO SCH (09:56)
[2019-04-04] MEDS: CETIRIZINE HCL 10 MG TABLET PO SCH (09:57)
[2019-04-04] MEDS: AZITHROMYCIN 250 MG TAB PO SCH (10:00)
[2019-04-04] MEDS: FINASTERIDE 5 MG TAB PO SCH (10:00)
[2019-04-04] MEDS: FUROSEMIDE 40 MG TAB PO SCH (10:01)
[2019-04-04] MEDS: MAGNESIUM OXIDE 400 MG TAB PO SCH ×2 (10:01→21:40)
[2019-04-04] MEDS: TIOTROPIUM BROMIDE 5 PUFF/90 MCG INH INH SCH (10:02)
[2019-04-04] MEDS: PYRIDOXINE HCL 50 MG TAB PO SCH (10:02)
[2019-04-04] MEDS: DOCUSATE SODIUM 100 MG CAP PO SCH ×2 (10:02→21:39)
[2019-04-04] MEDS: PANTOprazole 40 MG TAB PO SCH (10:03)
[2019-04-04] MEDS: BUDESONIDE/FORMOTEROL FUMARATE 160/4.5 60 PUFFS/INHALER INH SCH ×2 (10:03→21:39)
[2019-04-04] MEDS: CHOLECALCIFEROL 1,000 UNITS TAB PO SCH (10:03)
--- NOTE | 2019-04-04 10:38 | Hospitalist Progress Note ---
Date of Service April 04, 2019 Assessment & Plan (1) Acute and chronic respiratory failure: Patient pulmonary recommendations. Patient will need home trilogy -Case management is working on it. Patient is right now on 4 L of oxygen which he usually supplements at home 08/12 Continue Spiriva and Symbicort. Continue azithromycin 3 times a week and wean steroids as tolerated. Follow-up with Dr. Dodge within 2 weeks. Patient would need appointment with outpatient sleep study. Weight loss would be beneficial. Follow-up with urology for uroepithelial cancer. Follow-up with oncology Dr. Anand for metastatic adenocarcinoma of the lungs. Pulmonary rehabilitation. DVT prophylaxis Heparin 5000 units sq 12h. Full code (2) Edema: Patient reporting 85 pound weight gain since the summer Lower extremity edema Doppler bilateral LE without dvt Echo without evidence of heart failure or right heart strain BNP was 184 Given IV furosemide x 3 doses - continue 40 mg po daily (3) COPD exacerbation: discontinue scheduled duonebs, titrate down steroids Continue Spiriva and Symbicort (4) DM w/o complication type II: Hold metformin for now Last A1c in December 22.2 SS, bsgs ac & hs Blood sugars have been mostly controlled - will likely improve as steroids are reduced (5) BPH (benign prostatic hyperplasia): Continue terazosin, finasteride (6) Stage 4 lung cancer: currently not under treatment - patient with adverse reaction to Opdivo CT chest as above Dr. Anand updated on increased size of paraspinal mass. (7) Chronic pain: continue methadone (8) Hypertension: Continue amlodipine (9) Hyperlipidemia: Continue atorvastatin (10) DVT prophylaxis: heparin subq Dispo: PT/OT recommending home with home health, patient's insurance is closed on the weekend. Will need to have Trilogy set up tomorrow and then patient can be discharged. Subjective Patient seen and examined at the bedside. He is now back to his 4 L of supplemental oxygen that he is using at home. He reports much less shortness of breath at rest. He continues to be short of breath when he is moving around. Patient continues to need the BiPAP at night.patient again used BiPAP last night. Waiting for case management to provide him with home trilogy. Patient lives by himself and only has a dog. Patient reports no discomfort yesterday or this morning. Willing to go home. Patient denies fever, chills, chest pain, shortness of breath, abdominal pain, frequency, urgency. Review of Systems Review of Systems: All systems reviewed & are unremarkable except as noted in HPI & below Physical Exam Constitutional: WD/WN, vitals as above Eyes: normal visual kan by confrontation and + anicteric sclerae Neck: trachea midline, no thyromegaly normal visual inspection and trachea midline Respiratory: normal respiratory effort; no respiratory distress Auscultation: no crackles and no wheezes Distant breath sounds bilaterally. Cardiovascular: RRR, no murmur, no edema Rate/Rhythm: regular rate and regular rhythm Gastrointestinal (Abdomen): normal bowel sounds, soft, nontender, no hepatosplenomegaly Inspection/Auscultation: + abdomen distended Percussion/Palpation: abdomen nontender Musculoskeletal: Head/Neck/Chest: normocephalic and head atraumatic Extremities: extremities normal to inspection Skin: no rashes, warm and dry Neurologic: awake; not confused Speech / Cognition: normal speech Psychiatric: A+Ox3, euthymic affect Lymphatic: no cervical lymphadenopathy Results & Data Vital Signs (Past 12 Hours) Vital Signs Temp Pulse Pulse Resp BP Pulse Ox 04/04/19 03:09 36.6 C 76 18 134/77 97 04/03/19 23:27 75 18 98 04/03/19 23:11 36.3 C L 82 20 134/77 97 PG Care Time/CCT Total # of Minutes Spent Total Time Spent with Patient: Total time spent is greater than 50% in coordination of care (as documented) at patient's floor/unit and/or counseling patient: (1) Edema Edema type: unspecified Qualified Code(s): R60.9 - Edema, unspecified (2) Hyperlipidemia Hyperlipidemia type: mixed hyperlipidemia Qualified Code(s): E78.2 - Mixed hyperlipidemia (3) Stage 4 lung cancer Laterality: unspecified laterality Qualified Code(s): C34.90 - Malignant neoplasm of unspecified part of unspecified bronchus or lung (4) Hypertension Hypertension type: essential hypertension Qualified Code(s): I10 - Essential (primary) hypertension
--- NOTE | 2019-04-04 15:00 | Pulmonology Progress Note ---
Date of Service April 04, 2019 Assessment & Plan (1) Acute and chronic respiratory failure: Patient has chronic emphysema and COPD with home oxygen use requiring an average of 3 L/min via nasal cannula Patient presented with worsening hypercapnia with a PCO2 of 55 Currently patient is back to baseline as far as his supplemental oxygen use Patient is ambulating 250 feet in the hallway with supplemental O2 Patient has no acute fever, chills, sweats, rigors. He has no sputum production or any other acute complaints (2) Chronic respiratory failure with hypoxia and hypercapnia: Patient certainly has elevated PCO2 that has worsened over the last year. Patient currently had ABGs on admission with pH of 7.47 and a PCO2 of 46 representing chronic failure While the patient would benefit from a trilogy noninvasive ventilator, this is not supported by the [facility] Patient would benefit from BiPAP and we will provide a prescription for this on discharge Patient should continue to follow-up with Dr. Dodge in the outpatient setting Patient should continue with supplemental O2 to maintain SaO2 between 88 and 92% (3) COPD (chronic obstructive pulmonary disease): Patient follows Dr. 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 Anand PET CT scan showed a lesion at approximately T7 with FDG uptake 01/24/[address] 03/31/2019 shows that this lesion is enlarging Patient states that he was unaware that he had a lesion at this area of his spine He has no back pain or discomfort Discussed radiation therapy and patient would like to further discuss this with Dr. Anand and Dr. Dodge Thank you for including us in the care of this patient Please refer to Dr. Barba's addendum for further recommendations. We will continue to help with obtaining BiPAP on discharge Supervising Physician Co-Signing Physician Notes Seen and examined. Discussed with SHAISTA. Agree with A/P as noted. Will need close outpatient followup with Dr Dodge at discharge. Subjective Attending: Dr. Barba This is a 74-year-old male who lives at home alone. He has a sister there is close by who offered support. The patient does not have a dog or any one else living with him in the house. He is a [place] vet but is irritated when people ask him to speak about his experience or any complications from that era. The patient is seen at bedside today and I entertained a long discussion about ongoing care from a pulmonary standpoint. The patient does have hypercapnia with chronic elevated pH and a PCO2 on 07/01/2018 of 55 and 46 on 03/31/2019. The plan was to arrange for trilogy noninvasive ventilation at home. Inasmuch as the patient has [facility] benefits, trilogy has been denied. With his hypercapnia, patient will qualify for CPAP/BiPAP with a prescription for starting rates. Patient has been using BiPAP while in the hospital for 4 to 5 hours but complains of pressure and pain to his forehead and bridge of nose. Patient is back to his baseline using 3 L/min of supplemental oxygen via nasal cannula. He states that this is his home rate. The patient denies any fever, chills, sweats, rigors. He has minimal sputum production. He has no hemoptysis. He does have a prior smoking history but quit smoking several years back. He is interested in continuing to follow only with Dr. Dodge from the pulmonary clinic. Review of Systems Review of Systems: All systems reviewed & are unremarkable except as noted in HPI & below Physical Exam Physical Exam: GENERAL : No acute distress EYES: No icterus, gaze conjugate NOSE: No evidence of epistaxis. Nasal cannula is in place MOUTH: No lesions or candidiasis. Tongue is midline. NECK: Supple. No stridor LUNGS: Generally clear to auscultation with no significant rales rhonchi or bronchospasm. Breath sounds are distant. HEART: Regular, rate controlled. No appreciation of murmurs gallops or rubs ABDOMEN: Soft, NT, ND, BS Present. Abdomen is protuberant. EXTREMITIES: No LE edema, pedal pulses intact. NEURO: A&OX3. Results & Data Vital Signs (Past 12 Hours) Vital Signs Temp Pulse Resp BP Pulse Ox 04/04/19 11:27 80 20 148/70 H 95 04/04/19 03:09 36.6 C 76 18 134/77 97 Laboratory Results 04/03/19 05:41 04/03/19 05:[address] chest wo con CT DOSE: 799.96 mGycm CLINICAL HISTORY: 74 years-old Male with sob. Acute shortness of breath in a patient with history of bladder cancer. TECHNIQUE: Multiaxial CT images of the chest were performed without contrast. A dose lowering technique was utilized adhering to the principles of ALARA. COMPARISON: PET CT 01/24/2019, CTA chest 06/30/2018 FINDINGS: Unremarkable thyroid. Calcified mediastinal and hilar lymph nodes with calcified pulmonary nodules compatible with prior granulomatous disease. Heart is normal in size with trace pericardial effusion. Coronary arterial calcifications. Moderate calcified plaque the thoracic aorta without aneurysm. Tortuosity of the descending thoracic aorta. Aberrant course of the right subclavian artery. Unremarkable unopacified pulmonary artery. Severe emphysema with hyperinflation. No pneumothorax or pleural effusion or overt pulmonary edema. Lobular linear area of consolidation within the inferior segment lingula measures 4.6 x 1.7 cm, unchanged. Mild bilateral bronchial wall thickening suggestive of bronchitis. There is no overt pulmonary edema. Mild pleural-based consolidation adjacent to a subpleural right lower lobe calcified granuloma is unchanged suggestive of scarring with atelectasis. Soft tissue attenuating paraspinal mass at the level of T7 has increased in size now measuring 2.8 x 1.7 cm on image 117 series 4, previously measuring 1.7 x 1.0 cm on the 01/24/2019 exam. Again, there is mild adjacent bony erosion of the T7 vertebral body. A portion of the mass appears to partially extend into the right neuroforamen on image 113 series 4. Secretions are noted about the tracheobronchial tree. No acute process of the imaged upper abdomen. Lipoma of the left paraspinal musculature measures up to 2.0 cm in transverse dimension. Degenerative changes of the shoulders and spine. Multiple healed remote bilateral anterior rib fractures. No new suspicious bone lesions identified. Remote T6 and T7 compression deformities appear unchanged. Sclerotic thickening of the mid sternum suggests healed remote fracture. Convex left curvature of the midthoracic spine. IMPRESSION: 1. Right-sided paraspinal mass adjacent to the right lower lobe at the level of T7 has increased in size from comparison now measuring 2.8 x 1.7 cm previously demonstrating hypermetabolic activity. There is mild erosion of the adjacent vertebral body with partial extension of the mass into the right T6-T7 neuroforamen. 2. Prior granulomatous disease. 3. No adenopathy or new pulmonary lesions identified. 4. Unchanged lobular linear consolidation of the inferior segment lingula, 4.6 cm. 5. Severe emphysema. Electronically signed by: Mauricio Andre M.D. 03/31/2019 2:01 PM PG Care Time/CCT Total # of Minutes Spent Total Time Spent with Patient: Total time spent is greater than 50% in coordination of care (as documented) at patient's floor/unit and/or counseling patient:
[2019-04-04] MEDS: ATORVASTATIN 40 MG TAB PO SCH (21:38)
[2019-04-04] MEDS: AMLODIPINE BESYLATE 5 MG TAB PO SCH (21:38)
[2019-04-04] MEDS: TERAZOSIN HCL 1 MG CAP PO SCH (21:39)
[2019-04-05] MEDS: METHADONE HCL 10 MG TAB PO SCH ×3 (00:13→12:26)
[2019-04-05] MEDS: TIOTROPIUM BROMIDE 5 PUFF/90 MCG INH INH SCH (08:23)
[2019-04-05] MEDS: DOCUSATE SODIUM 100 MG CAP PO SCH (08:25)
[2019-04-05] MEDS: predniSONE 10 MG TABLET PO SCH (08:25)
[2019-04-05] MEDS: PANTOprazole 40 MG TAB PO SCH (08:25)
[2019-04-05] MEDS: CYANOCOBALAMIN (VITAMIN B-12) 100 MCG TABLET PO SCH (08:26)
[2019-04-05] MEDS: MAGNESIUM OXIDE 400 MG TAB PO SCH (08:26)
[2019-04-05] MEDS: CHOLECALCIFEROL 1,000 UNITS TAB PO SCH (08:26)
[2019-04-05] MEDS: PYRIDOXINE HCL 50 MG TAB PO SCH (08:26)
[2019-04-05] MEDS: BUDESONIDE/FORMOTEROL FUMARATE 160/4.5 60 PUFFS/INHALER INH SCH (08:27)
[2019-04-05] MEDS: FINASTERIDE 5 MG TAB PO SCH (08:27)
[2019-04-05] MEDS: CETIRIZINE HCL 10 MG TABLET PO SCH (08:27)
[2019-04-05] MEDS: FUROSEMIDE 40 MG TAB PO SCH (08:28)
[2019-04-05] MEDS: POTASSIUM CHLORIDE 10 MEQ TABCR PO SCH (08:28)
[2019-04-05] MEDS: HEPARIN SOD 5,000 UNIT/0.5 ML VIAL SQ SCH (08:28)
[2019-04-05] MEDS: INSULIN ASPART 100 UNITS/ML 3 ML PEN SC SCH ×2 (08:29→12:21)
--- NOTE | 2019-04-05 09:28 | Hospitalist Progress Note ---
Date of Service April 05, 2019 Assessment & Plan (1) Acute and chronic respiratory failure: Appreciate pulmonary recommendations.Patient is an discharge transferred to [facility] where he will have available BiPAP at night and all other services that are needed for his recovery. He will see Dr. Paula neurology for 3+ blood in his urine on Thursday in his office. Patient should follow-up with PCP in 3 days and check CBC and make sure that his H&H is still stable. Patient is right now on 4 L of oxygen which he usually supplements at home 08/12 Continue Spiriva and Symbicort. Continue azithromycin 3 times a week and wean steroids as tolerated. Follow-up with Dr. Dodge within 2 weeks. Patient would need appointment with outpatient sleep study. Weight loss would be beneficial. Follow-up with urology for uroepithelial cancer. Follow-up with oncology Dr. Anand for metastatic adenocarcinoma of the lungs. Pulmonary rehabilitation Full code (2) Edema: Patient reporting 85 pound weight gain since the summer Lower extremity edema Doppler bilateral LE without dvt Echo without evidence of heart failure or right heart strain BNP was 184 Given IV furosemide x 3 doses - continue 40 mg po daily (3) COPD exacerbation: discontinue scheduled duonebs, titrate down steroids Continue Spiriva and Symbicort (4) DM w/o complication type II: Con metformin at [facility] Last A1c in December 22.2 SS, bsgs ac & hs Blood sugars have been mostly controlled - will likely improve as steroids are reduced (5) BPH (benign prostatic hyperplasia): Continue terazosin, finasteride (6) Stage 4 lung cancer: currently not under treatment - patient with adverse reaction to Opdivo CT chest as above Dr. Anand updated on increased size of paraspinal mass. (7) Chronic pain: continue methadone (8) Hypertension: Continue amlodipine (9) Hyperlipidemia: Continue atorvastatin (10) DVT prophylaxis: Dispo: PT/OT at [facility]. Subjective Patient seen and examined at the bedside. He is eager to go to [facility] rather than home because he still does not have trilogy which was recommended by pulmonary. Patient need BiPAP at home at night. He also needs sleep study. Patient agrees to follow-up with Dr. Paula Urology for 3+ blood in urine. Appointment is scheduled for Thursday at 10AM and Dr. Paula's office. Patient will continue to need oxygen about 3 to 4 L to keep his oxygenation above 92%. At night he needs BiPAP if Trilogy is not available. Trilogy.Patient is also going to follow-up with Dr. Anand oncology for his pulmonary cancer within 2 weeks. The patient denies any fever, chills, sweats, rigors. He has minimal sputum production. He has no hemoptysis. He does have a prior smoking history but quit smoking several years back.Follow only with Dr. Dodge from the pulmonary clinic in 2 weeks. Review of Systems Review of Systems: All systems reviewed & are unremarkable except as noted in HPI & below Physical Exam Constitutional: WD/WN, vitals as above Eyes: normal visual kan by confrontation and + anicteric sclerae Neck: trachea midline, no thyromegaly normal visual inspection and trachea midline Respiratory: normal respiratory effort; no respiratory distress Auscultation: no crackles and no wheezes Cardiovascular: RRR, no murmur, no edema Rate/Rhythm: regular rate and regular rhythm Gastrointestinal (Abdomen): normal bowel sounds, soft, nontender, no hepatosplenomegaly Inspection/Auscultation: + abdomen distended Percussion/Palpation: abdomen nontender Musculoskeletal: Head/Neck/Chest: normocephalic and head atraumatic Extremities: extremities normal to inspection Skin: no rashes, warm and dry Neurologic: awake; not confused Speech / Cognition: normal speech Psychiatric: A+Ox3, euthymic affect Lymphatic: no cervical lymphadenopathy Results & Data Vital Signs (Past 12 Hours) Vital Signs Temp Pulse Pulse Resp BP BP Pulse Ox 04/05/19 08:11 36.5 C 99 H 16 143/78 H 97 04/05/19 04:03 36.8 C 75 20 120/70 98 04/04/19 23:44 36.3 C L 80 20 115/70 98 04/04/19 23:25 68 18 98 PG Care Time/CCT Total # of Minutes Spent Total Time Spent with Patient: Total time spent is greater than 50% in coordination of care (as documented) at patient's floor/unit and/or counseling patient: (1) Edema Edema type: unspecified Qualified Code(s): R60.9 - Edema, unspecified (2) Hyperlipidemia Hyperlipidemia type: mixed hyperlipidemia Qualified Code(s): E78.2 - Mixed hyperlipidemia (3) Stage 4 lung cancer Laterality: unspecified laterality Qualified Code(s): C34.90 - Malignant neoplasm of unspecified part of unspecified bronchus or lung (4) Hypertension Hypertension type: essential hypertension Qualified Code(s): I10 - Essential (primary) hypertension
[2019-04-05 10:27] LABS: Appearance Urine Slightly Cloudy (Clear); Bilirubin Urine Negative (Negative); Blood Urine 3+ (Negative); Color Urine Amber; Glucose Urine UA Negative (Negative); Ketones Urine Negative (Negative); Leukocyte Esterase Urine 1+ (Negative); Nitrite Urine Negative (Negative); Protein Urine 2+ (Negative); Specific Gravity Urine 1.015 (1.000-1.030); Urobilinogen Urine Negative (Negative)
[2019-04-05 10:33] LABS: RBC Urine >30 /hpf (0-4)
[2019-04-05 10:37] LABS: Bacteria Urine Negative (Negative)
--- NOTE | 2019-04-05 15:50 | Pulmonology Progress Note ---
Date of Service April 05, 2019 Assessment & Plan (1) Chronic respiratory failure with hypoxia: Impression: 74-year-old male with very severe obstructive lung disease, obesity, and lung and metastatic bladder cancer admitted with progressive shortness of breath. He has evidence of hypercarbic respiratory failure and significant hyperinflation on his PFTs which were performed almost [address] scan does not demonstrate any acute airspace opacity but does show some progression of the paraspinal lesion. I suspect he has a significant component of deconditioning contributing as well Recommendations: 1. COPD: The patient is on an aggressive inhaler regimen currently consisting of Spiriva and Symbicort. Continue azithromycin 3 times a week and wean steroids as tolerated for his arthralgias. Recommend outpatient pulmonary rehab 2. Chronic hypoxemic and hypercarbic respiratory failure: The patient's blood gas continues to demonstrate an elevated PCO2. He may have some degree of obesity hypoventilation syndrome contributing. Recommend outpatient sleep study. For now would continue BiPAP at night. This should be continued pending his sleep study if it can be approved through his insurance 3. Obesity: Weight loss will definitely be beneficial. I think the patient would benefit from outpatient pulmonary rehabilitation as well. He has a significant component of deconditioning which is likely contributing to his shortness of breath. This will not improve unless he increases his activity level. I advised the patient he needs to be up and walking the halls in the hallway. Doubtful he will be compliant 4. Metastatic adenocarcinoma, lung and uroepithelial. Defer to primary care given the spine lesion. Patient was presented at the multidisciplinary cancer conference today with plans to pursue radiation therapy of the paraspinal lesion. 5. Obesity: This is contributing to the patient's shortness of breath and pulmonary limitation. Exercise and weight loss were recommended. Consultation with a lehr stripper may be beneficial. Formal weight loss program such as weight watchers may be appropriate. Patient should follow-up with Dr. Dodge in the outpatient setting. The patient can be dismissed from the hospital when he feels his breathing has improved enough to be managed in the outpatient setting. He may require placement. (2) Shortness of breath: (3) Lung cancer: Laterality: unspecified laterality Lung location: unspecified p art of lung Qualified Code(s): C34.90 - Malignant neoplasm of unspecified part of unspecified bronchus or lung Subjective Patient seen and examined. He feels his breathing may be slightly better. He continues to use BiPAP at night. No cough or sputum production. Review of Systems 2 Review of Systems: Unchanged from prior Physical Exam Constitutional: WD/WN, vitals as above Neck: trachea midline, no thyromegaly Cardiovascular: RRR, no murmur, no edema Gastrointestinal (Abdomen): normal bowel sounds, soft, nontender, no hepatosplenomegaly Musculoskeletal: Extremities: extremities normal to inspection Skin: no rashes, warm and dry Lymphatic: no cervical lymphadenopathy Results & Data Vital Signs (Past 12 Hours) Vital Signs Temp Pulse Resp BP BP Pulse Ox 04/05/19 15:46 36.5 C 83 18 149/78 H 115/70 97 04/05/19 15:44 36.5 C 83 18 149/78 H 115/70 97 04/05/19 15:35 36.5 C 83 18 149/78 H 97 04/05/19 11:56 36.2 C L 82 16 134/72 96 04/05/19 08:11 36.5 C 99 H 16 143/78 H 97 04/05/19 04:03 36.8 C 75 20 120/70 98 Laboratory Results 04/03/19 05:41 04/03/19 05:41 PG Care Time/CCT Total # of Minutes Spent Total Time Spent with Patient: Total time spent is greater than 50% in coordination of care (as documented) at patient's floor/unit and/or counseling patient:
--- NOTE | 2019-04-05 16:00 | Discharge Summary ---
Date of Service April 05, 2019 Admission HPI Per Admitting Provider Mr. Shetty presented to the ED today due to sob which began this morning. He is on 3L NC at baseline but had increased his O2 to 4L. His client reporting associate recommended he report to the ED after he called him this morning. Patient reports that he has gained 85 pounds since this summer due to steroid use making him very hungry. His lower extremities have been edematous and he feels his belly is distended. He denies cough, chest pain, n/v/d, or sick contacts. He has a history of lung CA and prostate CA but currently treatments are on hold. Pmhx: COPD, stage IV lung CA, bladder CA, dyslipidemia, htn, bph, Principal Diagnosis none Discharge Exam Constitutional WD/WN, vitals as above Eyes normal visual kan by confrontation and + anicteric sclerae Neck trachea midline, no thyromegaly normal visual inspection and trachea midline Respiratory normal respiratory effort; no respiratory distress Auscultation: no crackles and no wheezes Cardiovascular RRR, no murmur, no edema Rate/Rhythm: regular rate and regular rhythm Gastrointestinal (Abdomen) normal bowel sounds, soft, nontender, no hepatosplenomegaly Inspection/Auscultation: + abdomen distended Percussion/Palpation: abdomen nontender Musculoskeletal Head/Neck/Chest: normocephalic and head atraumatic Extremities: extremities normal to inspection Skin no rashes, warm and dry Neurologic awake; not confused Speech / Cognition: normal speech Psychiatric A+Ox3, euthymic affect Lymphatic no cervical lymphadenopathy Discharge Data Allergies Allergy/AdvReac Type Severity Reaction Status Date / Time Bactrim Allergy Severe TONGUE Verified 12/02/17 08:11 SWELLS/FONG mupirocin Allergy Severe ANAPHYLAXIS Verified 03/28/19 10:36 sulfamethoxazole Allergy Severe TONGUE Verified 03/28/19 10:36 SWELLS/FONG trimethoprim Allergy Severe TONGUE Verified 03/28/19 10:36 SWELLS/FONG Iodinated Contrast Media Allergy Intermediate HIVES/ITCHI Verified 03/28/19 10:36 NG lisinopril Allergy Intermediate Tongue Verified 03/28/19 10:36 Swelling mustard Allergy Intermediate Hives, Verified 03/28/19 10:36 SOB, Itchy aspirin Allergy Mild ITCHY Verified 03/28/19 10:36 adhesive AdvReac Intermediate Tape - Rash Verified 03/28/19 10:36 Consultations 03/28/19 11:35 ED Decision to Admit Stat 03/31/19 15:41 Consult Pulmonology Routine 04/03/19 10:21 Consult DIAZG meat loiner Routine 04/05/19 12:05 Consult Urology Routine Ordered Studies 03/28/19 14:34 US venous doppler LE BI Routine 03/31/19 13:06 CT chest wo con Routine Hospital Course (1) Acute and chronic respiratory failure: Appreciate pulmonary recommendations.Patient is an discharge transferred to [facility] where he will have available BiPAP at night and all other services that are needed for his recovery. He will see Dr. Paula neurology for 3+ blood in his urine on Thursday in his office. Patient should follow-up with PCP in 3 days and check CBC and make sure that his H&H is still stable. Patient is right now on 4 L of oxygen which he usually supplements at home 08/12 Continue Spiriva and Symbicort. Continue azithromycin 3 times a week and wean steroids as tolerated. Follow-up with Dr. Dodge within 2 weeks. Patient would need appointment with outpatient sleep study. Weight loss would be beneficial. Follow-up with urology for uroepithelial cancer. Follow-up with oncology Dr. Anand for metastatic adenocarcinoma of the lungs. Pulmonary rehabilitation Full code (2) Edema: Patient reporting 85 pound weight gain since the summer Lower extremity edema Doppler bilateral LE without dvt Echo without evidence of heart failure or right heart strain BNP was 184 Given IV furosemide x 3 doses - continue 40 mg po daily (3) COPD exacerbation: discontinue scheduled duonebs, titrate down steroids Continue Spiriva and Symbicort (4) DM w/o complication type II: Con metformin at [facility] Last A1c in December 22.2 SS, bsgs ac & hs Blood sugars have been mostly controlled - will likely improve as steroids are reduced (5) BPH (benign prostatic hyperplasia): Continue terazosin, finasteride (6) Stage 4 lung cancer: currently not under treatment - patient with adverse reaction to Opdivo CT chest as above Dr. Anand updated on increased size of paraspinal mass. (7) Chronic pain: continue methadone (8) Hypertension: Continue amlodipine (9) Hyperlipidemia: Continue atorvastatin (10) DVT prophylaxis: Dispo: PT/OT at [facility]. Total Time Total Time Spent Total Time Spent (In Minutes): over 30 min Discharge Plan Discharge Items Patient Disposition[facility] Reason For Visit: FLUID OVERLOAD Discharge Diagnosis: Fluid Overload, respiratory failure Condition on Discharge: Good Health Concerns: hypercapnia Activity: As commented below Lifting: Gradually increase as tolerated Non-emergency contact: Primary Care Provider, Oncologist, Display Associate and Urologist Follow-up/Referrals: Kathy Del Cid C.R.NNoemiP. [Primary Care Provider] - Diet: Carb Consistent or DM2, Heart Healthy and Low Sodium (2gm) Addtl Attending Provider Instructions: Please follow up with , urology on Thursday at 10 am in his office for microscopic hematuria. Follow up with PCP in 3 days with CBC. Follow up with Oncology within 2 weeks. Follow up with Dr. Dodge within 2 weeks. Use TRILOGY or BIPAP at night. Continue supplemental O2 and keep O2 sats above 92%.NEED to schedule sleep study. Taper down prednisone. Pending Studies at Discharge: No Stand-Alone Forms: [facility], Smoking Cessation Skilled Items Patient informed of condition?: Yes DNR: No Discharge Level of Care: Skilled Communicable Disease: No Discharge Prognosis: Stable Lines: None Urinary Catheter: No Medications and DC Order Prescriptions: New furosemide 40 mg Tablet 40 mg PO QAM Qty: 30 RF: 0 azithromycin [Zithromax] 250 mg Tablet 250 mg PO MoWeFr@0900 Qty: 30 RF: 0 Spiriva with HandiHaler 18 mcg Capsule, W/Inhalation Device 1 puff inhalation DAILY Qty: 1 RF: 0 Symbicort 160-4.5 mcg/actuation Hfa Aerosol Inhaler 2 puff inhalation BID Qty: 1 RF: 0 prednisone 10 mg Tablet 20 mg PO DAILY Qty: 25 RF: 0 sodium chloride [Saline Mist] 0.65 % Aerosol,[place] 1 spray NA Q4H PRN (Reason: nasal congestion) Qty: 1 RF: 0 Continued iphatxjmrbr-yowqcsdhz-waxemgbz [Trelegy Ellipta] 100-62.5-25 mcg blister with device 1 inh inhalation DAILY RF: 0 potassium chloride 10 mEq tablet extended release 10 meq PO DAILY Qty: 30 RF: 2 cholecalciferol (vitamin D3) 400 unit capsule 400 unit PO DAILY RF: 0 atorvastatin 80 mg Tablet 80 mg PO PM RF: 0 ascorbic acid (vitamin C) [Vitamin C] 1,000 mg Tablet 1 g PO QAM RF: 0 cyanocobalamin (vitamin B-12) [Vitamin B-12] 100 mcg Tablet 100 mcg PO QAM RF: 0 methadone 10 mg Tablet 10 mg PO QID RF: 0 terazosin 2 mg Capsule 2 mg PO QPM RF: 0 docusate sodium 100 mg Capsule 100 mg PO BID RF: 0 pyridoxine (vitamin B6) [Vitamin B-6] 100 mg Tablet 100 mg PO QAM RF: 0 albuterol sulfate 90 mcg/actuation Hfa Aerosol Inhaler 2 puff INHALATION Q4H PRN (Reason: Shortness Of Breath) RF: 0 finasteride 5 mg Tablet 5 mg PO QAM RF: 0 magnesium oxide 400 mg magnesium Capsule 400 mg PO BID RF: 0 sennosides 8.6 mg Tablet 17.2 mg PO BID PRN (Reason: Constipation) RF: 0 amlodipine [Norvasc] 5 mg tablet 5 mg PO HS RF: 0 albuterol sulfate 1.25 mg/3 mL Solution For Nebulization 1.25 mg INHALATION QID RF: 0 cetirizine 5 mg Tablet 5 mg PO DAILY RF: 0 diclofenac sodium [Voltaren] 1 % Gel 4 applic EXT QID PRN (Reason: joint pain) Qty: 1 RF: 0 omeprazole 20 mg capsule,delayed release(DR/EC) 20 mg PO DAILY Qty: 30 RF: 2 metformin 500 mg tablet extended release 24 hr 500 mg PO DAILY Qty: 30 RF: 5 Discontinued Spiriva Respimat 1.25 mcg/actuation mist 2 puffs INH DAILY RF: 0 prednisone 20 mg tablet 20 mg PO BID RF: 0 furosemide 20 mg tablet 20 mg PO BID RF: 0 prednisone 10 mg tablet 10 mg PO DAILY Qty: 100 RF: 1 prednisone 10 mg tablet 10 mg PO DAILY Qty: 100 RF: 0 Discharge Orders: Discharge Order (Routine); Ordered 04/05/19 Ordered By: Francy Alford Admission Data Admit Date/Time: 03/29/19 12:55 Attending Provider: Francy Alford Admit Provider: Kandice Puri Primary Care Provider: Kathy Del Cid Other Providers: Ruy Silveira ; Bronson Dial ; Konstantin Barba ; [facility] ; [place] ; Richard Paula.
== END 2019-04-05 16:47 | DRG 190 ==
LOC: ED 09:55 → 2N 09:55 → SUATTDRO 12:54 → 2N 14:19 → SUATTDRO 03-29 12:55

== ENCOUNTER 2019-05-24 11:55 | Inpatient (IN) ==
[2019-05-24 12:40] LABS: Basophils # (auto) 0.01 K/uL (0-0.2); Basophils % (auto) 0.1 %; Eosinophils # (auto) 0.01 K/uL (0-0.5); Eosinophils % (auto) 0.1 %; Hematocrit (blood only) 37.9 % (42-52); Hemoglobin 12.4 g/dL (14.0-18.0); Immature Granulocytes # (auto) 0.21 K/uL (0.00-0.02); Immature Granulocytes % (auto) 2.1 %; Lymphocytes # (auto) 0.91 K/uL (1.2-3.4); Mean Corpuscular Hemoglobin 30.3 pg (25-34); Mean Corpuscular Hgb Conc 32.7 g/dL (32-36); Mean Corpuscular Volume 92.7 fL (80-100); Mean Platelet Volume 9.7 fL (7.4-10.4); Monocytes # (auto) 0.58 K/uL (0.11-0.59); Monocytes % (auto) 5.7 %; Neutrophils # (auto) 8.41 K/uL (1.4-6.5); Platelet Count 145 K/uL (130-400); RDW Coefficient of Variation 15.8 % (11.5-14.5); RDW Standard Deviation 53.3 fL (36.4-46.3); Red Blood Count 4.09 M/uL (4.7-6.1); White Blood Count 10.13 K/uL (4.8-10.8)
[2019-05-24] MEDS ORDERED: ALBUT/IPRATROP 3MG/0.5MG NEB 3 ML VIAL NEB ONE (12:45)
[2019-05-24 12:48] LABS: iSTAT Creatinine 1.1 mg/dl (0.6-1.3); iSTAT Hemoglobin 12.6 g/dl (14.0-18.0); iSTAT Ionized Calcium 1.15 mmol/l (1.12-1.32); iSTAT Potassium 3.2 mEq/L (3.3-5.0)
[2019-05-24 13:02] LABS: Alanine Aminotransferase 40 U/L (12-78); Albumin Level 3.1 gm/dl (3.4-5.0); Aspartate Aminotransferase 19 U/L (15-37); Blood Urea Nitrogen 27 mg/dl (7-18); Calcium 9.5 mg/dl (8.5-10.1); Carbon Dioxide 32 mmol/L (21-32); Chloride 93 mmol/L (98-107); Creatinine Clr Calc Pharmacy 61.2 ml/min; Est GFR (African American) 59.8; Est GFR (Non-African American) 51.6; Glucose 245 mg/dl (70-99); Lipase 54 U/L (73-393); Potassium 3.2 mmol/L (3.5-5.1); Sodium 135 mmol/L (136-145)
[2019-05-24 13:07] LABS: Albumin Globulin Ratio 0.8 (0.9-2); Alkaline Phosphatase 84 U/L (45-117); Bilirubin,Total 0.4 mg/dl (0.2-1); Creatine Kinase 112 U/L (39-308); Globulin 3.8 gm/dl (2.5-4.0); Total Protein 6.9 gm/dl (6.4-8.2); Troponin I < 0.015 ng/ml (0-0.045)
[2019-05-24] MEDS ORDERED: methylPREDNISolone 60 MG in SYRINGE 1 ML IV STA (13:11)
[2019-05-24] MEDS ORDERED: POTASSIUM CHLORIDE 20 MEQ TABCR PO STA (13:11)
[2019-05-24] MEDS ORDERED: FUROSEMIDE 40 MG/4 ML VIAL IV STA (13:11)
--- NOTE | 2019-05-24 13:11 | XRay Report ---
XR chest 1V portable CLINICAL HISTORY: Chest pain. COMPARISON STUDY: Chest CT March 31, 2019. Chest radiograph March 28, 2019. FINDINGS: There is no pneumothorax or pleural effusion. There is a calcified granuloma within the rig ht upper lobe. Severe emphysema is noted. The right paraspinal mass shown on CT of March 31, 2019 is not well visualized given radiographic technique. Mild lower lung opacity favors atelectasis. Mult iple old right rib fractures are noted. IMPRESSION: 1. Severe emphysema. 2. Linear bibasilar opacities which favor atelectasis. An infectious process could appear similar but is considered less likely. ACT 112: Negative or not required by law. Electronically signed by: Giovanny Milian M.D. 05/24/2019 1:10 PM
[2019-05-24] MEDS ORDERED: NovoLIN-R INSULIN PER UNIT CHARGE IV STA (13:12)
[2019-05-24] MEDS ORDERED: MAGNESIUM SULFATE / D5W 1 GM/100 ML BAG IV ONE (13:12)
--- NOTE | 2019-05-24 13:50 | CT Scan Report ---
CT SCAN OF THE ABDOMEN AND PELVIS WITHOUT CONTRAST CLINICAL HISTORY: Diffuse abdominal pain and distention HISTORY OF BLADDER CARCINOMA NON-SMALL CELL L TYLER CARCINOMA. COMPARISON STUDY: December 08, 2018 TECHNIQUE: CT scan of the abdomen and pelvis was performed from the lung bases to the proximal femurs . Images are reviewed in the axial, sagittal, and coronal planes. IV contrast was not administered fo r this examination. A dose lowering technique was utilized adhering to the principles of ALARA. CT DOSE: 1460.26 mGy.cm FINDINGS: Lower chest: There is severe pulmonary emphysema. There is a persistent 47 x 17 mm lingular opacity. There is a stable opacity at the right medial lung base. There is minor right lower lobe mucus pluggi ng. Liver: The unenhanced liver is normal in size, contour, and attenuation. There is no intrahepatic mckinley iary ductal dilatation. Gallbladder: Unremarkable. Spleen: Normal in size and attenuation. Pancreas: Unremarkable. Adrenal glands: Unremarkable. Kidneys: There are bilateral renal cysts. There are bilateral vascular calcifications. There is a non obstructing 2.5 mm lower pole right renal calculus. There is no significant hydronephrosis. Bowel: There are no transition zones to indicate bowel obstruction. There is no evidence of acute div erticulitis. The appendix appears normal. Peritoneum: There is no intraperitoneal free air or abdominal ascites. There are bilateral fat-contai dontae inguinal hernias. There is a fat-containing umbilical hernia. There is a stable lipoma within th e right lateral abdominal wall musculature. Vasculature: The abdominal aorta is normal in course and caliber. Adenopathy: None. Pelvic viscera: The prostate is enlarged. Skeletal structures: No destructive osseous lesions are seen. IMPRESSION: 1. No evidence of bowel obstruction. No evidence of free air 2. Severe pulmonary emphysema. Stable 47 x 17 mm lingular opacity. Stable opacity at the right medial lung base. 3. No acute inflammatory changes. No evidence of diverticulitis. No evidence of acute appendicitis. 4. Stable right-sided nephrolithiasis ACT 112: Negative or not required by law. Electronically signed by: Shen Orona M.D. 05/24/2019 1:49 PM
--- NOTE | 2019-05-24 13:59 | Electrocardiogram Report ---
Test Reason : Blood Pressure : / mmHG Vent. Rate : 098 BPM Atrial Rate : 098 BPM P-R Int : 166 ms QRS Dur : 094 ms QT Int : 344 ms P-R-T Axes : 060 063 053 degrees QTc Int : 439 ms Normal sinus rhythm Normal ECG When compared with ECG of 01-APR-2019 06:36, Nonspecific T wave abnormality now evident in Lateral leads Confirmed by Jhonathan Olvera ([id number]) on 05/24/2019 1:58:48 PM Referred By: Confirmed By:Jhonathan Olvera
[2019-05-24] MEDS ORDERED: methylPREDNISolone 60 MG in SYRINGE 0 ML IV ONE (14:15)
[2019-05-24 14:59] LABS: Appearance Urine Clear (Clear); Bacteria Urine Automated Negative (Negative); Bilirubin Urine Negative (Negative); Blood Urine 3+ (Negative); Color Urine Yellow; Glucose Urine UA Negative (Negative); Ketones Urine Negative (Negative); Leukocyte Esterase Urine Trace (Negative); Nitrite Urine Negative (Negative); Protein Urine Negative (Negative); RBC Urine Automated >30 /hpf (0-4); Specific Gravity Urine 1.009 (1.000-1.030); Urobilinogen Urine Negative (Negative)
--- NOTE | 2019-05-24 17:03 | History & Physical Report ---
Date of Service May 24, 2019 Assessment & Plan (1) Acute and chronic respiratory failure: Likely due to stage IV lung cancer non-small cell carcinoma. Admit to telemetry Vital signs every 4 hours Continue duo nebs, steroids prednisone 30 mg p.o. every morning Supplemental oxygen Consult pulmonary CPAP/BiPAP as needed DVT prophylaxis with heparin 5000 units every 12 hours Full code Present on Admission?: Yes (2) Lung cancer: As the above Per Dr. Gibson note patient is Present on Admission?: Yes (3) COPD (chronic obstructive pulmonary disease): As the above (4) Bronchogenic cancer: As the above.Per Dr. 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 Patient is at the risk of developing paraplegia if patient does not go under radiation oncology treatment. Please follow-up with Dr. Masoud Cruz. Patient also supposed to receive AVAPS with a full facemask with his O2 supplementation. Present on Admission?: Yes (5) Hypertension: Stable continue amlodipine 5 mg p.o. nightly, furosemide 40 mg p.o. every morning, magnesium oxide 400 mg p.o. twice daily, metolazone 5mg po as directed. Present on Admission?: Yes (6) Non-small cell carcinoma of left lung: As discussed above. Present on Admission?: Yes (7) Hyperlipidemia: Continue atorvastatin 80mg p.o. nightly. Present on Admission?: Yes (8) Bladder cancer: Continue following up with oncology Dr. Anand. Present on Admission?: Yes History of Present Illness Chief Complaint: Severe shortness of breath, acute respiratory failure Primary Care Provider: Kathy Del Cid Patient is a 74 years old male with past medical history of chronic respiratory failure, diabetes mellitus type 2 with complications, benign prostatic hypertrophy,, stage IV lung cancer currently not under treatment, patient with adverse reaction to Opdivo, chronic pain on methadone, hypertension, hyperlipidemia who presents to the emergency room with severe shortness of breath and acute respiratory failure. After being placed on BiPAP patient condition improved. Patient received in the emergency room Solu-Medrol 60 mg IV x1 magnesium 1 g IV x1 furosemide 40 mg IV x1 DuoNeb x1. Patient denies fever, chills, chest pain, abdominal pain, frequency, urgency, syncope or near syncope. Patient was recently admitted to the hospital for the similar issue in March. He lives by himself. 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 Patient is at the risk of developing paraplegia if patient does not go under radiation oncology treatment. Patient supposed to receive AVAPS unit with full facemask with his oxygen supplementation. Dr. Dodge who is his grant writer is hopeful that noninvasive positive pressure ventilation will assist him in the future. EKG reviewed shows normal sinus rhythm. There are nonspecific T wave abnormalities now evident in lateral leads. Labs are reviewed WBC is 10.13, hemoglobin 12.4, hematocrit 37.9, platelets 145. Sodium 135, potassium 3.2, chloride 93, BUN 27, creatinine 1.36, GFR 51.6, creatinine 1.36, glucose 169, calcium 9.5, AST 19, ALT 40, CK-MB 4, troponin 0 0.015, Albumin 3.1. Chest x-ray significant for severe emphysema, minor bibasilar opacities which favors atelectasis.An infectious process could appear similar but is considered less likely. CT abdomen pelvis no evidence of bowel obstruction. No evidence of free air. Severe pulmonary emphysema. Stable 47 x 17 mm lingular opacity. Stable opacity in the right medial lung base. No acute inflammatory changes. No evidence of diverticulitis. No evidence of acute appendicitis. Stable right-sided nephrolithiasis. Decision was made to admit patient to telemetry for respiratory acute respiratory failure. Allergies Allergy/AdvReac Type Severity Reaction Status Date / Time Bactrim Allergy Severe TONGUE Verified 12/02/17 08:11 SWELLS/FONG mupirocin Allergy Severe ANAPHYLAXIS Verified 05/24/19 15:05 sulfamethoxazole Allergy Severe TONGUE Verified 05/24/19 15:05 SWELLS/FONG trimethoprim Allergy Severe TONGUE Verified 05/24/19 15:05 SWELLS/FONG Iodinated Contrast Media Allergy Intermediate HIVES/ITCHI Verified 05/24/19 15:05 NG lisinopril Allergy Intermediate Tongue Verified 05/24/19 15:05 Swelling mustard Allergy Intermediate Hives, Verified 05/24/19 15:05 SOB, Itchy aspirin Allergy Mild ITCHY Verified 05/24/19 15:05 adhesive AdvReac Intermediate Tape - Rash Verified 05/24/19 15:05 Home Medications Home Medications Medication Instructions Recorded Confirmed Type albuterol sulfate 2 puff INHALATION Q4H PRN 03/30/18 05/24/19 History atorvastatin 80 mg PO HS 03/30/18 05/24/19 History cyanocobalamin (vitamin B-12) 100 mcg PO QAM 03/30/18 05/24/19 History [Vitamin B-12] docusate sodium 100 mg PO BID 03/30/18 05/24/19 History finasteride 5 mg PO QAM 03/30/18 05/24/19 History pyridoxine (vitamin B6) [Vitamin 100 mg PO QAM 03/30/18 05/24/19 History B-6] terazosin 2 mg PO HS 03/30/18 05/24/19 History cholecalciferol (vitamin D3) 400 400 unit PO QAM cap 12/01/18 05/24/19 History unit capsule magnesium oxide 400 mg PO BID 12/03/18 05/24/19 History amlodipine [Norvasc] 5 mg PO HS 12/07/18 05/24/19 History sennosides 17.2 mg PO BID 12/07/18 05/24/19 History albuterol sulfate 1.25 mg INHALATION QID 12/28/18 05/24/19 History cetirizine 5 mg PO QAM 01/09/19 05/24/19 History diclofenac sodium [Voltaren] 4 applic EXT QID PRN #1 tube 01/15/19 05/24/19 Rx budesonide-formoterol [Symbicort] 2 puff INHALATION BID #1 box 04/05/19 05/24/19 Rx furosemide 40 mg PO QAM #30 tab 04/05/19 05/24/19 Rx methadone 10 mg tablet 10 mg PO QID #12 tab 04/05/19 05/24/19 Rx sodium chloride [Saline Mist] 1 spray NA Q4H PRN #1 btl 04/05/19 05/24/19 Rx azelastine 1 spray INTRANASAL BID 05/24/19 05/24/19 History metformin 500 mg PO QAM 05/24/19 05/24/19 History metolazone 5 mg PO WEFR@0500 05/24/19 05/24/19 History omeprazole 20 mg PO QAM 05/24/19 05/24/19 History potassium chloride 10 meq PO SUMOTU@0500 05/24/19 05/24/19 History potassium chloride 20 meq PO WEFR@0500 05/24/19 05/24/19 History prednisone 30 mg PO QAM 05/24/19 05/24/19 History tiotropium bromide [Spiriva with 1 puff INHALATION QAM 05/24/19 05/24/19 History HandiHaler] Past Med/Surg History Medical History Acute leg pain (Inactive) Bladder cancer CURRENTLY BEING TREATED W/ CHEMOTHERAPY Bladder cancer metastasized to pelvic region (Acute) BPH (benign prostatic hyperplasia) (Chronic) Chronic back pain Chronic respiratory failure (Chronic) Constipation COPD (chronic obstructive pulmonary disease) (Chronic) COPD (chronic obstructive pulmonary disease) (Chronic) DVT prophylaxis Elevated PSA (Chronic) H/O hematuria (Resolved) H/O malignant neoplasm of skin (Chronic) Hyperlipidemia (Chronic) Hypertension (Resolved) Inguinal hernia BL Left leg swelling (Inactive) Non-small cell lung cancer (Chronic) CURRENTLY BEING TREATED W/ CHEMOTHERAPY Opioid dependence (Chronic) Osteoarthritis Stroke (Chronic) 2009 - NO PERIPHERAL VISION RT SIDE - NO NEUROLOGIST Umbilical hernia Urothelial carcinoma (Chronic) Surgical History H/O hand surgery (Resolved) H/O Moh's micrographic surgery for skin cancer (Resolved) H/O prostate biopsy (Acute) H/O prostatectomy History of bronchoscopy W/ BIOPSY History of colonoscopy History of surgery TRANSURETHRAL RESECTION OF BLADDER TUMOR X 3 History of surgery PLACEMENT OF MEDIPORT W/ REMOVAL History of ureter stent W/ REMOVAL Family History Father , 69yo [place], DM, arthritis, HTN Diabetes Cardiac disorder Hypertension Mother , age 84 from stroke Cardiac disorder Hypertension Brother Diabetes Cardiac disorder Hypertension Cancer, face Sister History of kidney cancer Hypertension Unknown Lung cancer Leukemia Basal cell carcinoma Social History Preferred Language: Macedonian Communication Ability: Effective Visual Impairment: No Limitations Hearing Ability: Hard of Hearing Quality Improvement Analyst Required: No Beliefs That Will Affect Care: None marital status: marital status details: 1 son and 3 daughters Current Living Situation: Alone Current Living Situation Comment: apartment current occupational status: retired current occupation: [employer] Feels Safe at Home: Yes Safety Concerns: Feels Safe At This Time Smoking Status: Former smoker Tobacco Type: cigarettes ; Cigarettes Per Day: 20 ; Second Hand Exposure: No ; Hx Alcohol Use: No Hx Substance Use: No caffeine: Yes (3 cups/day) during the past year weight has: decreased > 10 lbs Review of Systems Review of Systems: All systems reviewed & are unremarkable except as noted in HPI & below Physical Exam Constitutional: WD/WN, vitals as above well developed and + morbidly obese Eyes: PERRL, conjunctivae normal, anicteric sclerae ENMT: external ear and nose normal, oropharynx normal Neck: trachea midline, no thyromegaly Respiratory: + respiratory distress, + labored breathing and + tripod positioning Auscultation: + diminished lung sounds, + crackles and + wheezes Cardiovascular: Heart Sounds: normal S1 and normal S2 Vessels: dorsalis pedis pulses present Musculoskeletal: no cyanosis or clubbing, extremities motor strength 5/5 Skin: no rashes, warm and dry Neurologic: patellar DTR's 2+ bilat, sensation intact Psychiatric: A+Ox3, euthymic affect Lymphatic: no cervical or axillary lymphadenopathy Results & Data Vital Signs (Past 12 Hours) Vital Signs Temp Pulse Pulse Resp BP BP Pulse Ox 05/24/19 16:00 102 H 24 161/94 H 95 05/24/19 15:00 108 H 26 H 136/73 91 05/24/19 14:04 92 H 16 153/83 H 98 05/24/19 14:00 88 18 144/83 H 97 05/24/19 13:45 77 20 98 05/24/19 13:00 117 H 16 175/109 H 94 05/24/19 12:36 86 14 138/80 96 05/24/19 12:28 99 05/24/19 12:08 36.8 C 100 H 100 H 28 H 143/88 H 143/88 H 97 Code Status & VTE Plan Code Status Full code VTE Prophylaxis Plan VTE Prophylaxis will be ordered: Yes PG Care Time/CCT Total # of Minutes Spent Total Time Spent with Patient: Total time spent is greater than 50% in coordination of care (as documented) at patient's floor/unit and/or counseling patient: (1) Lung cancer Laterality: unspecified laterality Lung location: unspecified part of lung Qualified Code(s): C34.90 - Malignant neoplasm of unspecified part of unspecified bronchus or lung (2) COPD (chronic obstructive pulmonary disease) COPD type: unspecified COPD Qualified Code(s): J44.9 - Chronic obstructive pulmonary disease, unspecified (3) Hypertension Hypertension type: essential hypertension Qualified Code(s): I10 - Essential (primary) hypertension (4) Hyperlipidemia Hyperlipidemia type: mixed hyperlipidemia Qualified Code(s): E78.2 - Mixed hyperlipidemia (5) Bladder cancer Bladder location: unspecified site Qualified Code(s): C67.9 - Malignant neoplasm of bladder, unspecified
[2019-05-24] MEDS ORDERED: GLUCAGON FOR INJ 1 MG VIAL SQ PRN (21:52)
[2019-05-24] MEDS ORDERED: DICLOFENAC SOD 1% GEL 100 GM TUBE EXT PRN (21:52)
[2019-05-24] MEDS ORDERED: SODIUM CHLORIDE 0.65% NA SOLN 45 ML (OCEAN) PRN (21:52)
[2019-05-24] MEDS ORDERED: ONDANSETRON INJ 2 MG/ML 2 ML VIAL IV PRN (21:52)
[2019-05-24] MEDS ORDERED: ACETAMINOPHEN 325 MG TAB PO PRN (21:52)
[2019-05-24] MEDS ORDERED: POLYETHYLENE (MIRALAX) 17 GM PACK PO PRN (21:52)
[2019-05-24] MEDS ORDERED: GLUCOSE 10 TABS/TUBE PO PRN (21:52)
[2019-05-24] MEDS ORDERED: DEXTROSE 50% 50 ML SYRINGE IV PRN (21:52)
[2019-05-24] MEDS ORDERED: ALUMINUM/MAGNESIUM SUSP 30 ML UDC PO PRN (21:52)
[2019-05-24] MEDS ORDERED: ALBUTEROL HFA 8 GM INHALER INH PRN (21:52)
[2019-05-24] MEDS ORDERED: CARBOHYDRATES FOR HYPOGLYCEMIA PO PRN (21:52)
[2019-05-24] MEDS ORDERED: GLUCOSE 40% GEL 15 GM TUBE PO PRN (21:52)
[2019-05-24] MEDS ORDERED: MAGNESIUM HYDROXIDE SUSP 30 ML UDC PO PRN (21:52)
[2019-05-24] MEDS ORDERED: PHARMACY GLYCEMIC MGMT CONSULT PRN (22:10)
[2019-05-24] MEDS: HEPARIN SOD 5,000 UNIT/0.5 ML VIAL SQ SCH (22:47)
[2019-05-24] MEDS: ATORVASTATIN 40 MG TAB PO SCH (22:47)
[2019-05-24] MEDS: BUDESONIDE/FORMOTEROL FUMARATE 160/4.5 60 PUFFS/INHALER INH SCH (22:49)
[2019-05-24] MEDS: DOCUSATE SODIUM 100 MG CAP PO SCH (22:49)
[2019-05-24] MEDS: AMLODIPINE BESYLATE 5 MG TAB PO SCH (22:49)
[2019-05-24] MEDS: POTASSIUM CHLORIDE 20 MEQ TABCR PO SCH (22:50)
[2019-05-24] MEDS: SENNA 8.6 MG TAB PO SCH (22:51)
[2019-05-24] MEDS: TERAZOSIN HCL 1 MG CAP PO SCH (22:51)
[2019-05-24] MEDS: METHADONE HCL 10 MG TAB PO SCH (23:34)
[2019-05-24] MEDS: INSULIN ASPART 100 UNITS/ML 3 ML PEN SC SCH (23:35)
[2019-05-24] MEDS ORDERED: ALBUT/IPRATROP 3MG/0.5MG NEB 3 ML VIAL NEB PRN (23:36)
[2019-05-25] MEDS ORDERED: INSULIN ASPART 100 UNITS/ML 3 ML PEN SC SCH (02:00)
[2019-05-25] MEDS: METHADONE HCL 10 MG TAB PO SCH ×3 (05:19→17:14)
[2019-05-25] MEDS: metOLazone 5 MG TABLET PO SCH (05:19)
[2019-05-25 07:48] LABS: Basophils # (auto) 0.01 K/uL (0-0.2); Basophils % (auto) 0.1 %; Hematocrit (blood only) 37.3 % (42-52); Hemoglobin 11.8 g/dL (14.0-18.0); Immature Granulocytes # (auto) 0.22 K/uL (0.00-0.02); Immature Granulocytes % (auto) 1.8 %; Lymphocytes # (auto) 1.22 K/uL (1.2-3.4); Lymphocytes % (auto) 10.1 %; Mean Corpuscular Hemoglobin 30.3 pg (25-34); Mean Corpuscular Hgb Conc 31.6 g/dL (32-36); Mean Corpuscular Volume 95.6 fL (80-100); Mean Platelet Volume 9.4 fL (7.4-10.4); Monocytes % (auto) 7.4 %; Neutrophils # (auto) 9.78 K/uL (1.4-6.5); Neutrophils % (auto) 80.6 %; Platelet Count 145 K/uL (130-400); RDW Coefficient of Variation 15.5 % (11.5-14.5); RDW Standard Deviation 54.1 fL (36.4-46.3); White Blood Count 12.13 K/uL (4.8-10.8)
[2019-05-25] MEDS ORDERED: INSULIN HUMAN NPH SC SCH (08:00)
[2019-05-25 08:05] LABS: Estimated Average Glucose 183 mg/dl
[2019-05-25 08:21] LABS: Albumin Level 2.9 gm/dl (3.4-5.0); BUN Creatinine Ratio 26.7 (10-20); Calcium 9.7 mg/dl (8.5-10.1); Creatinine Clr Calc Pharmacy 62.2 ml/min; Est GFR (African American) 66.3; Est GFR (Non-African American) 57.2; Potassium 3.4 mmol/L (3.5-5.1)
[2019-05-25 08:26] LABS: Albumin Globulin Ratio 0.8 (0.9-2); Bilirubin,Total 0.5 mg/dl (0.2-1); Globulin 3.6 gm/dl (2.5-4.0); Total Protein 6.5 gm/dl (6.4-8.2)
[2019-05-25] MEDS: BUDESONIDE/FORMOTEROL FUMARATE 160/4.5 60 PUFFS/INHALER INH SCH ×2 (08:53→21:16)
[2019-05-25] MEDS: CHOLECALCIFEROL 1,000 UNITS TAB PO SCH (08:54)
[2019-05-25] MEDS: PANTOprazole 40 MG TAB PO SCH (08:54)
[2019-05-25] MEDS: POTASSIUM CHLORIDE 20 MEQ TABCR PO SCH (08:54)
[2019-05-25] MEDS: CYANOCOBALAMIN (VITAMIN B-12) 100 MCG TABLET PO SCH (08:55)
[2019-05-25] MEDS: SENNA 8.6 MG TAB PO SCH ×2 (08:56→21:16)
[2019-05-25] MEDS: MAGNESIUM OXIDE 400 MG TAB PO SCH ×2 (08:57→21:15)
[2019-05-25] MEDS: CETIRIZINE HCL 10 MG TABLET PO SCH (08:57)
[2019-05-25] MEDS: FUROSEMIDE 40 MG TAB PO SCH (08:58)
[2019-05-25] MEDS: PYRIDOXINE HCL 50 MG TAB PO SCH (08:58)
[2019-05-25] MEDS: predniSONE 10 MG TABLET PO SCH (08:58)
[2019-05-25] MEDS: HEPARIN SOD 5,000 UNIT/0.5 ML VIAL SQ SCH (08:59)
[2019-05-25] MEDS ORDERED: POTASSIUM CHLORIDE 20 MEQ TABCR PO SCH (09:00)
[2019-05-25] MEDS: DOCUSATE SODIUM 100 MG CAP PO SCH ×2 (09:00→21:11)
[2019-05-25] MEDS: INSULIN ASPART 100 UNITS/ML 3 ML PEN SC SCH ×4 (09:02→21:17)
[2019-05-25] MEDS: FINASTERIDE 5 MG TAB PO SCH (09:03)
[2019-05-25] MEDS: INSULIN HUMAN NPH SC SCH (09:12)
--- NOTE | 2019-05-25 10:18 | Electrocardiogram Report ---
Test Reason : Blood Pressure : / mmHG Vent. Rate : 078 BPM Atrial Rate : 078 BPM P-R Int : 166 ms QRS Dur : 090 ms QT Int : 402 ms P-R-T Axes : 077 049 032 degrees QTc Int : 458 ms Normal sinus rhythm Normal ECG When compared with ECG of 24-MAY-2019 12:08, No significant change was found Confirmed by Jhonathan Olvera ([id number]) on 05/25/2019 10:18:09 AM Referred By: REFERRED SELF Confirmed By:Jhonathan Olvera
--- NOTE | 2019-05-25 11:12 | Pharmacy Report ---
Glycemic Control Consultation - Date of Service May 25, 2019 - Scope Scope: Glycemic Pharmacist consulted by Dr Alford on 05/25/2019 for glycemic control and to write orders per [facility] inpatient glycemic control protocol - Objective Weight: 106.8 kg Accuchecks BSG (last 24hrs): 05/24/19 05/24/19 05/24/19 12:26 12:35 17:52 Glucose 245 H POC Glucose 169 H POC Glucose (other) 249 H 05/24/19 05/25/19 05/25/19 23:30 02:05 07:22 Glucose 170 H POC Glucose 214 H 146 H POC Glucose (other) 05/25/19 07:41 Glucose POC Glucose 175 H POC Glucose (other) Laboratory Data (last 24hrs): 05/24/19 05/25/19 12:26 07:22 Potassium 3.2 L 3.4 L Carbon Dioxide 32 35 H Anion Gap 10.0 8.0 Creatinine 1.36 1.25 Est Cr Clr Drug Dosing 61.2 62.2 HbA1c: Hemoglobin A1c 8.0 % (4.5-5.6) H 05/25/19 07:22 - Recent Pertinent Medications Outpatient Anti-diabetic Regimen: * metformin 500 mg PO qAM * A1c = 8.0 % 05/25/2019 The patient is currently receiving: * Basal insulin: NPH 30 units qAM * Correctional Insulin: Novolog Correction per scale ACHS Goal Range: Low 110 mg/dL - High 140 mg/dL Correction Factor: 18 mg/dL/unit * Prandial insulin: Per carb ratio of 1 unit per 6 grams CHO consumed Risk Factors for Insulin Resistance: * Steroids: Solu-Medrol 60 mg IV x 1 then prednisone 30 mg daily * Diet: T2DM - Assessment & Plan Assessment & Plan: ASSESSMENT: * Mr Maldonado is a 74 y/o M with a PMH of T2DM maintained on metformin as an outpatient. HbA1C unreliable due to steroid use. * Patient given IV Solu-Medrol in ER and subsequent BSGs of 249 mg/dL (received 10 units IV) - 169 mg/dL - 214 mg/dL. He received 1 units of insulin at 0200 for BSG of 146 mg/dL. Fasting is 175 mg/dL. This is falsely elevated due to Solu-Medrol. * Will start with 0.2 units/kg of Lantus. Patient most likely will require some Lantus while inhouse since fasting was trending upwards from 0200 check. Indicates basal needs not being met. * Start with 0.3 units/kg of NPH due to PO prednisone. * Start with weight-based stress of 2-3 Novolog due to steroids. * Hold metformin at this point due to critical illness. PLAN FOR INPATIENT GLYCEMIC CONTROL: * Holding outpatient oral diabetes medications * Basal insulin * Lantus 20 units SQ qAM * Bolus insulin * NovoLog per scale ACHS or Q6hrs while NPO * Goal Range: Low 110 mg/dL - High 140 mg/dL * Correction Factor: 18 mg/dL/unit * Nutritional / Prandial insulin per carb ratio of 1 unit per 6 grams CHO consumed * Please note that the plan above was derived based on current level of insulin resistance and hospital stress. These recommendations are appropriate for inpatient admission only. Plan of care upon discharge will need to be reassessed to avoid potential outpatient hypo/hyperglycemia. Thank you.
[2019-05-25] MEDS ORDERED: INSULIN GLARGINE SOLOSTAR 100 UNITS/ML 3 ML PEN SC SCH (12:00)
--- NOTE | 2019-05-25 12:24 | Emergency Department Note ---
Entered by Jay Segura acting as a scribe for History of Present Illness General Chief complaint: Shortness of Breath/Dyspnea Time Seen by Provider: 05/24/19 12:21 Source: patient History of Present Illness Provider complaint: Shortness of breath Onset (ago): day(s) (Couple of days) Location: chest Severity: similar to prior episodes Pain Consistency: + constant and + other (Worsening) Relieved By: + none Associated symptoms: + other (Abdominal distension) The patient is a 74 year old male who presents to the Emergency Room with complaints of worsening shortness of breath that has been ongoing for the past couple of days. The patient states he has a history of COPD. The patient reports that his shortness of breath is worse with movement. The patient also presents with a severely distended abdomen, which he says is about his baseline. The patient adds that he has been taking all of his medications but his symptoms continue to progress. The patient has never had his abdomen drained before. He also mentioned that he has large hernias present in his abdomen. Home Medications Home Medications Medication Instructions Recorded Confirmed Type albuterol sulfate 2 puff INHALATION Q4H PRN 03/30/18 05/24/19 History atorvastatin 80 mg PO HS 03/30/18 05/24/19 History cyanocobalamin (vitamin B-12) 100 mcg PO QAM 03/30/18 05/24/19 History [Vitamin B-12] docusate sodium 100 mg PO BID 03/30/18 05/24/19 History finasteride 5 mg PO QAM 03/30/18 05/24/19 History pyridoxine (vitamin B6) [Vitamin 100 mg PO QAM 03/30/18 05/24/19 History B-6] terazosin 2 mg PO HS 03/30/18 05/24/19 History cholecalciferol (vitamin D3) 400 400 unit PO QAM cap 12/01/18 05/24/19 History unit capsule magnesium oxide 400 mg PO BID 12/03/18 05/24/19 History amlodipine [Norvasc] 5 mg PO HS 12/07/18 05/24/19 History sennosides 17.2 mg PO BID 12/07/18 05/24/19 History albuterol sulfate 1.25 mg INHALATION QID 12/28/18 05/24/19 History cetirizine 5 mg PO QAM 01/09/19 05/24/19 History diclofenac sodium [Voltaren] 4 applic EXT QID PRN #1 tube 01/15/19 05/24/19 Rx budesonide-formoterol [Symbicort] 2 puff INHALATION BID #1 box 04/05/19 05/24/19 Rx furosemide 40 mg PO QAM #30 tab 04/05/19 05/24/19 Rx methadone 10 mg tablet 10 mg PO QID #12 tab 04/05/19 05/24/19 Rx sodium chloride [Saline Mist] 1 spray NA Q4H PRN #1 btl 04/05/19 05/24/19 Rx azelastine 1 spray INTRANASAL BID 05/24/19 05/24/19 History metformin 500 mg PO QAM 05/24/19 05/24/19 History metolazone 5 mg PO WEFR@0500 05/24/19 05/24/19 History omeprazole 20 mg PO QAM 05/24/19 05/24/19 History potassium chloride 10 meq PO SUMOTU@0500 05/24/19 05/24/19 History potassium chloride 20 meq PO WEFR@0500 05/24/19 05/24/19 History prednisone 30 mg PO QAM 05/24/19 05/24/19 History tiotropium bromide [Spiriva with 1 puff INHALATION QAM 05/24/19 05/24/19 History HandiHaler] Allergies Allergy/AdvReac Type Severity Reaction Status Date / Time Bactrim Allergy Severe TONGUE Verified 12/02/17 08:11 SWELLS/FONG mupirocin Allergy Severe ANAPHYLAXIS Verified 05/24/19 15:05 sulfamethoxazole Allergy Severe TONGUE Verified 05/24/19 15:05 SWELLS/FONG trimethoprim Allergy Severe TONGUE Verified 05/24/19 15:05 SWELLS/FONG Iodinated Contrast Media Allergy Intermediate HIVES/ITCHI Verified 05/24/19 15:05 NG lisinopril Allergy Intermediate Tongue Verified 05/24/19 15:05 Swelling mustard Allergy Intermediate Hives, Verified 05/24/19 15:05 SOB, Itchy aspirin Allergy Mild ITCHY Verified 05/24/19 15:05 adhesive AdvReac Intermediate Tape - Rash Verified 05/24/19 15:05 Past Med/Surg History Medical History Acute leg pain (Inactive) Bladder cancer CURRENTLY BEING TREATED W/ CHEMOTHERAPY Bladder cancer metastasized to pelvic region (Acute) BPH (benign prostatic hyperplasia) (Chronic) Chronic back pain Chronic respiratory failure (Chronic) Constipation COPD (chronic obstructive pulmonary disease) (Chronic) COPD (chronic obstructive pulmonary disease) (Chronic) DVT prophylaxis Elevated PSA (Chronic) H/O hematuria (Resolved) H/O malignant neoplasm of skin (Chronic) Hyperlipidemia (Chronic) Hypertension (Resolved) Inguinal hernia BL Left leg swelling (Inactive) Non-small cell lung cancer (Chronic) CURRENTLY BEING TREATED W/ CHEMOTHERAPY Opioid dependence (Chronic) Osteoarthritis Stroke (Chronic) 2009 - NO PERIPHERAL VISION RT SIDE - NO NEUROLOGIST Umbilical hernia Urothelial carcinoma (Chronic) Surgical History H/O hand surgery (Resolved) H/O Moh's micrographic surgery for skin cancer (Resolved) H/O prostate biopsy (Acute) H/O prostatectomy History of bronchoscopy W/ BIOPSY History of colonoscopy History of surgery TRANSURETHRAL RESECTION OF BLADDER TUMOR X 3 History of surgery PLACEMENT OF MEDIPORT W/ REMOVAL History of ureter stent W/ REMOVAL Family History Father , 69yo [place], DM, arthritis, HTN Diabetes Cardiac disorder Hypertension Mother , age 84 from stroke Cardiac disorder Hypertension Brother Diabetes Cardiac disorder Hypertension Cancer, face Sister History of kidney cancer Hypertension Unknown Lung cancer Leukemia Basal cell carcinoma Social History Preferred Language: Frisian Communication Ability: Effective Visual Impairment: No Limitations Hearing Ability: Hard of Hearing [place] Required: No Beliefs That Will Affect Care: None marital status: marital status details: 1 son and 3 daughters Current Living Situation: Alone Current Living Situation Comment: apartment current occupational status: retired 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 and A total of 10 systems reviewed and were otherwise negative Physical Exam Vital Signs Vital Signs - 24 hr 05/24/19 12:28 05/24/19 12:36 05/24/19 13:00 Pulse Rate 86 117 H Pulse Rate [Finger] Pulse Rate from SpO2 Sensor 86 95 H Respiratory Rate 14 16 Respiratory Effort / Characteristics Respiratory Depth Respiratory Pattern Blood Pressure 138/80 175/109 H Blood Pressure [Right Arm] Blood Pressure Mean 110 134 Blood Pressure Mean [Right Arm] Blood Pressure Position [Right Arm] Pulse Oximetry 99 96 94 Oxygen Delivery Method Nasal Cannula Nasal Cannula Nasal Cannula Oxygen Flow Rate 4 4 4 05/24/19 13:45 05/24/19 14:00 05/24/19 14:04 Pulse Rate 88 92 H Pulse Rate [Finger] 77 Pulse Rate from SpO2 Sensor 88 92 H Respiratory Rate 20 18 16 Respiratory Effort / Characteristics Spontaneous Respiratory Depth Respiratory Pattern Blood Pressure 144/83 H 153/83 H Blood Pressure [Right Arm] Blood Pressure Mean 100 118 Blood Pressure Mean [Right Arm] Blood Pressure Position [Right Arm] Pulse Oximetry 98 97 98 Oxygen Delivery Method Nasal Cannula Nebulizer Nebulizer Oxygen Flow Rate 4 05/24/19 15:00 05/24/19 16:00 Pulse Rate Pulse Rate [Finger] 108 H 102 H Pulse Rate from SpO2 Sensor Respiratory Rate 26 H 24 Respiratory Effort / Characteristics Non-Labored Spontaneous Spontaneous Respiratory Depth Normal Normal Respiratory Pattern Regular Blood Pressure Blood Pressure [Right Arm] 136/73 161/94 H Blood Pressure Mean Blood Pressure Mean [Right Arm] 94 116 Blood Pressure Position [Right Arm] Lying Sitting Pulse Oximetry 91 95 Oxygen Delivery Method Room Air Room Air Oxygen Flow Rate GENERAL: Awake, alert, well-appearing, in no distress HENT: Normocephalic, atraumatic. Oropharynx unremarkable. EYES: Normal conjunctiva. Sclera non-icteric. NECK: Supple. No nuchal rigidity. FROM. No masses. RESPIRATORY: Clear to auscultation but breath sounds are distant. No wheezes. No rales. Normal respiratory effort. CARDIAC: Normal rate. Normal rhythm. No murmurs. No rubs. Extremities warm and well perfused. Pulses equal. No JVD. GI: Distended. No tenderness to palpation. No rebound or guarding. No masses. RECTAL: Deferred. MUSCULOSKELETAL: Atraumatic. Chest examination reveals no tenderness. The back is symmetrical on inspection without obvious abnormality. There is no CVA tenderness to palpation. No joint edema. LOWER EXTREMITIES: Calves are equal size bilaterally and non-tender. No edema. No discoloration. NEURO: Normal sensorium. No sensory or motor deficits noted. Course Course 1224: Past medical records reviewed. The patient was evaluated in room A02, and a complete history and physical examination were performed. 1340: I reevaluated the patient and he is resting in bed. We discussed the treatment plan and he is agreeable. 1416: [facility]. 1434: I spoke to Dr. Alford [facility] Hospitalist about the patient's case. She agreed to accept the patient for further evaluation. Consultations Consultation #1: I spoke [facility] Dr. [facility]ford [facility] the [facility]'s case. She agreed to accept the patient for further evaluation. Time: 14:34 Administered Medications Albuterol (Duoneb) 3 ml NEB Q4R PRN PRN Reason: Shortness Of Breath Stop: 06/24/19 02:59 Last Admin: 05/25/19 05:41 Dose: 3 ml Documented by: [id number] Amlodipine Besylate (Norvasc) 5 mg PO HS [facility] Stop: 06/23/19 21:51 Last Admin: 05/24/19 22:49 Dose: 5 mg Documented by: [id number] Atorvastatin Calcium (Lipitor) 80 mg PO HS [facility] Stop: 06/23/19 21:51 Last Admin: 05/24/19 22:47 Dose: 80 mg Documented by: [id number] Budesonide/Formoterol Fumarate (Symbicort 160mcg/4.5mcg) 2 puffs INH BID [facility] Stop: 06/23/19 21:51 Last Admin: 05/25/19 08:53 Dose: 2 puffs Documented by: [id number] Admin: 05/24/19 22:49 Dose: Not Given Documented by: [id number] Cetirizine HCl (Zyrtec) 5 mg PO QAM [facility] Stop: 06/24/19 08:59 Last Admin: 05/25/19 08:57 Dose: 5 mg Documented by: [id number] Cyanocobalamin (Vitamin B-12) 100 mcg PO QAM [facility] Stop: 06/24/19 08:59 Last Admin: 05/25/19 08:55 Dose: 100 mcg Documented by: [id number] Docusate Sodium (Colace) 100 mg PO BID [facility] Stop: 06/23/19 21:51 Last Admin: 05/25/19 09:00 Dose: 100 mg Documented by: [id number] Admin: 05/24/19 22:49 Dose: 100 mg Documented by: [id number] Finasteride (Proscar) 5 mg PO QAM [facility] Stop: 06/24/19 08:59 Last Admin: 05/25/19 09:03 Dose: 5 mg Documented by: [id number] Furosemide (Lasix) 40 mg PO QAM [facility] Stop: 06/24/19 08:59 Last Admin: 05/25/19 08:58 Dose: 40 mg Documented by: [id number] Heparin Sodium (Porcine) (Heparin Sodium (Porcine)) 5,000 units SQ Q12 [facility] Stop: 06/23/19 21:51 Last Admin: 05/25/19 08:59 Dose: 5,000 units Documented by: [id number] Cosigned by: [id number] Admin: 05/24/19 22:47 Dose: 5,000 units Documented by: [id number] Cosigned by: [id number] Insulin Aspart (Novolog Flexpen) 0 units SC ACHS [facility] Stop: 06/23/19 22:59 Last Admin: 05/25/19 09:02 Dose: 9 units Documented by: [id number] Cosigned by: [id number] Admin: 05/24/19 23:35 Dose: 5 units Documented by: [id number] Cosigned by: [id number] Insulin Human NPH (Novolin N Nph) 30 units SC 0800 [facility] Stop: 06/24/19 07:59 Last Admin: 05/25/19 09:12 Dose: 30 units Documented by: [id number] Cosigned by: [id number] Magnesium Oxide (Mag-Ox) 400 mg PO BID [facility] Stop: 06/24/19 08:59 Last Admin: 05/25/19 08:57 Dose: 400 mg Documented by: [id number] Methadone HCl (Dolophine) 10 mg PO 0500,1100,1700,2300 [facility] Stop: 06/07/19 22:59 Last Admin: 05/25/19 05:19 Dose: 10 mg Documented by: [id number] Admin: 05/24/19 23:34 Dose: 10 mg Documented by: [id number] Metolazone (Zaroxolyn) 5 mg PO WEFR@0500 [facility] Stop: 06/24/19 04:59 Last Admin: 05/25/19 05:19 Dose: 5 mg Documented by: [id number] Miscellaneous (Order Awaiting Action) 1 ea N/A QS [facility] Stop: 06/24/19 00:00 Last Admin: 05/25/19 09:09 Dose: Not Given Documented by: [id number] Admin: 05/24/19 23:53 Dose: Not Given Documented by: [id number] Pantoprazole Sodium (Protonix) 40 mg PO [facility] Stop: 06/24/19 08:59 Last Admin: 05/25/19 08:54 Dose: 40 mg Documented by: [id number] Potassium Chloride (Klor-Con M20) 40 meq PO DAILY [facility] Stop: 06/23/19 21:51 Last Admin: 05/25/19 08:54 Dose: 40 meq Documented by: [id number] Admin: 05/24/19 22:50 Dose: 40 meq Documented by: [id number] Prednisone (Prednisone) 30 mg PO [facility] Stop: 06/24/19 08:59 Last Admin: 05/25/19 08:58 Dose: 30 mg Documented by: [id number] Pyridoxine HCl (Vitamin B-6) 100 mg PO [facility] Stop: 06/24/19 08:59 Last Admin: 05/25/19 08:58 Dose: 100 mg Documented by: [id number] Sennosides (Senokot) 17.2 mg PO BID [facility] Stop: 06/23/19 21:51 Last Admin: 05/25/19 08:56 Dose: 17.2 mg Documented by: [id number] Admin: 05/24/19 22:51 Dose: 17.2 mg Documented by: [id number] Terazosin HCl (Hytrin) 2 mg PO HS [facility] Stop: 06/23/19 21:51 Last Admin: 05/24/19 22:51 Dose: 2 mg Documented by: [id number] Vitamin D (Vitamin D3) [facility] [place]: 06/24/19 08:59 Last Admin: 05/25/19 08:54 Dose: 1,000 units Documented by: [id number] Discontinued Medications Albuterol (Duoneb) 12 ml NEB ONE ONE Stop: 05/24/19 12:46 Last Admin: 05/24/19 13:42 Dose: 12 ml Documented by: [id number] Furosemide (Lasix) 40 mg IV NOW STA Stop: 05/24/19 13:12 Last Admin: 05/24/19 14:03 Dose: 40 mg Documented by: [id number] Magnesium Sulfate/Dextrose (Magnesium Sulfate / D5w) 1 gm in 100 mls @ 100 mls/hr IV ONE ONE Stop: 05/24/19 14:11 Last Infusion: 05/24/19 15:05 Dose: 0 mls/hr Documented by: [id number] Admin: 05/24/19 14:04 Dose: 100 mls/hr Documented by: [id number] Methylprednisolone 60 mg/ (Syringe) 0.96 mls @ 1.5 mls/min IV ONE ONE Stop: 05/24/19 14:16 Last Admin: 05/24/19 14:24 Dose: 1.5 mls/min Documented by: [id number] Insulin Aspart (Novolog Flexpen) 0 units SC 0200 [facility] Stop: 05/25/19 02:01 Last Admin: 05/25/19 02:08 Dose: 1 units Documented by: [id number] Cosigned by: [id number] Insulin Human Regular (Novolin R U-100 Per Unit) 10 units IV NOW STA Stop: 05/24/19 13:13 Last Admin: 05/24/19 14:02 Dose: 10 units Documented by: [id number] Cosigned by: [id number] Potassium Chloride (Klor-Con M20) 40 meq PO NOW STA Stop: 05/24/19 13:12 Last Admin: 05/24/19 14:03 Dose: 40 meq Documented by: [id number] Medical Decision Making Differential Diagnosis Differential: Infectious, Reactive Airway Disease, Pneumonia, Pneumothorax, COPD, CHF, ACS, Pulmonary Embolism,MSK, GI, Dissection, amongst other etiologies entertained. Medical Records Attestation: I reviewed the patient's medical records. Home Medications Current Medication List: was personally reviewed by me Laboratory Data Attestation: I reviewed the patient's lab results. Result diagrams: 05/25/19 07:22 05/25/19 07:22 Lab Results 05/24/19 05/24/19 05/24/19 Range/Units 12:26 12:26 12:35 WBC 10.13 (4.8-10.8) K/uL RBC 4.09 L (4.7-6.1) M/uL Hgb 12.4 L (14.0-18.0) g/dL POC Hgb 12.6 L (14.0-18.0) g/dl Hct 37.9 L (42-52) % POC Hct 37 L (42-52) % MCV 92.7 (80-100) fL MCH 30.3 (25-34) pg MCHC 32.7 (32-36) g/dL RDW Std Deviation 53.3 H (36.4-46.3) fL RDW Coeff of James 15.8 H (11.5-14.5) % Plt Count 145 (130-400) K/uL MPV 9.7 (7.4-10.4) fL Immature Gran % (Auto) 2.1 % Neut % (Auto) 83.0 % Lymph % (Auto) 9.0 % [place] % (Auto) 5.7 % Eos % (Auto) 0.1 % Baso % (Auto) 0.1 % Immature Gran # (Auto) 0.21 H (0.00-0.02) K/uL Neut # (Auto) 8.41 H (1.4-6.5) K/uL Lymph # (Auto) 0.91 L (1.2-3.4) K/uL [place] # (Auto) 0.58 (0.11-0.59) K/uL Eos # (Auto) 0.01 (0-0.5) K/uL Baso # (Auto) 0.01 (0-0.2) K/uL POC Sodium 134 L (135-144) mEq/L Sodium 135 L (136-145) mmol/L POC Potassium 3.2 L (3.3-5.0) mEq/L Potassium 3.2 L (3.5-5.1) mmol/L POC Chloride 89 L (101-112) mEq/L Chloride 93 L (98-107) mmol/L Carbon Dioxide 32 (21-32) mmol/L POC Total CO2 33 H (24-31) mEq/l Anion Gap 10.0 (3-11) POC Anion Gap 16.0 (16-25) mmol/L POC BUN 25 H (7-18) mg/dl BUN 27 H (7-18) mg/dl Creatinine 1.36 (0.6-1.4) mg/dl POC Creatinine 1.1 (0.6-1.3) mg/dl Est Cr Clr Drug Dosing 61.2 ml/min Est GFR ( Amer) 59.8 Est GFR (Non-Af Amer) 51.6 BUN/Creatinine Ratio 20.0 (10-20) Glucose 245 H (70-99) mg/dl POC Glucose (other) 249 H (70-99) mg/dl Calcium 9.5 (8.5-10.1) mg/dl POC Ioniz Calcium Saida 1.15 (1.12-1.32) mmol/l Total Bilirubin 0.4 (0.2-1) mg/dl AST 19 (15-37) U/L ALT 40 (12-78) U/L Alkaline Phosphatase 84 (45-117) U/L Total Creatine Kinase 112 (39-308) U/L CK-MB (CK-2) 4.0 H (0.5-3.6) ng/ml CK/CKMB % Calc 3.6 H (0-3.0) Troponin I < 0.015 (0-0.045) ng/ml Total Protein 6.9 (6.4-8.2) gm/dl Albumin 3.1 L (3.4-5.0) gm/dl Globulin 3.8 (2.5-4.0) gm/dl Albumin/Globulin Ratio 0.8 L (0.9-2) Lipase 54 L (73-393) U/L Urine Color Urine Appearance (Clear) Urine pH (4.5-7.5) Ur Specific [place] (1.000-1.030) Urine Protein (Negative) Urine Glucose (UA) (Negative) Urine Ketones (Negative) Urine Blood (Negative) Urine Nitrite (Negative) Urine Bilirubin (Negative) Urine Urobilinogen (Negative) Ur Leukocyte Esterase (Negative) Urine WBC (Auto) (0-5) /hpf Urine RBC (Auto) (0-4) /hpf U Hyaline Cast (Auto) (0-5) /lpf U Epithel Cells (Auto) (0-5) /lpf Urine Bacteria (Auto) (Negative) 05/24/19 Range/Units 14:36 WBC (4.8-10.8) K/uL RBC (4.7-6.1) M/uL Hgb (14.0-18.0) g/dL POC Hgb (14.0-18.0) g/dl Hct (42-52) % POC Hct (42-52) % MCV (80-100) fL MCH (25-34) pg MCHC (32-36) g/dL RDW Std Deviation (36.4-46.3) fL RDW Coeff of James (11.5-14.5) % Plt Count (130-400) K/uL MPV (7.4-10.4) fL Immature Gran % (Auto) % Neut % (Auto) % Lymph % (Auto) % [place] % (Auto) % Eos % (Auto) % Baso % (Auto) % Immature Gran # (Auto) (0.00-0.02) K/uL Neut # (Auto) (1.4-6.5) K/uL Lymph # (Auto) (1.2-3.4) K/uL [place] # (Auto) (0.11-0.59) K/uL Eos # (Auto) (0-0.5) K/uL Baso # (Auto) (0-0.2) K/uL POC Sodium (135-144) mEq/L Sodium (136-145) mmol/L POC Potassium (3.3-5.0) mEq/L Potassium (3.5-5.1) mmol/L POC Chloride (101-112) mEq/L Chloride (98-107) mmol/L Carbon Dioxide (21-32) mmol/L POC Total CO2 (24-31) mEq/l Anion Gap (3-11) POC Anion Gap (16-25) mmol/L POC BUN (7-18) mg/dl BUN (7-18) mg/dl Creatinine (0.6-1.4) mg/dl POC Creatinine (0.6-1.3) mg/dl Est Cr Clr Drug Dosing ml/min Est GFR ( Amer) Est GFR (Non-Af Amer) BUN/Creatinine Ratio (10-20) Glucose (70-99) mg/dl POC Glucose (other) (70-99) mg/dl Calcium (8.5-10.1) mg/dl POC Ioniz Calcium [place] (1.12-1.32) mmol/l Total Bilirubin (0.2-1) mg/dl AST (15-37) U/L ALT (12-78) U/L Alkaline Phosphatase (45-117) U/L Total Creatine Kinase (39-308) U/L CK-MB (CK-2) (0.5-3.6) ng/ml CK/CKMB % Calc (0-3.0) Troponin I (0-0.045) ng/ml Total Protein (6.4-8.2) gm/dl Albumin (3.4-5.0) gm/dl Globulin (2.5-4.0) gm/dl Albumin/Globulin Ratio (0.9-2) Lipase (73-393) U/L Urine Color Yellow Urine Appearance Clear (Clear) Urine pH 7.0 (4.5-7.5) Ur Specific [place] 1.009 (1.000-1.030) Urine Protein Negative (Negative) Urine Glucose (UA) Negative (Negative) Urine Ketones Negative (Negative) Urine Blood 3+ H (Negative) Urine Nitrite Negative (Negative) Urine Bilirubin Negative (Negative) Urine Urobilinogen Negative (Negative) Ur Leukocyte Esterase Trace H (Negative) Urine WBC (Auto) 1-5 (0-5) /hpf Urine RBC (Auto) >30 H (0-4) /hpf U Hyaline Cast (Auto) 1-5 (0-5) /lpf U Epithel Cells (Auto) 10-20 H (0-5) /lpf Urine Bacteria (Auto) Negative (Negative) Imaging Data Radiologist's Impression: Radiology results as stated below per my review and the radiologist's interpretation: XR chest 1V portable CLINICAL HISTORY: Chest pain. COMPARISON STUDY: Chest CT March 31, 2019. Chest radiograph March 28, 2019. FINDINGS: There is no pneumothorax or pleural effusion. There is a calcified g ranuloma within the right upper lobe. Severe emphysema is noted. The right paraspinal mass shown on CT of March 31, 2019 is not well visualized given radiographic technique. Mild lower lung opacity favors atelectasis. Multiple old right rib fractures are noted. IMPRESSION: 1. Severe emphysema. 2. Linear bibasilar opacities which favor atelectasis. An infectious process could appear similar but is considered less likely. ACT 112: Negative or not required by law. Electronically signed by: Giovanny Milian M.D. 05/24/2019 1:[address] SCAN OF THE ABDOMEN AND PELVIS WITHOUT CONTRAST CLINICAL HISTORY: Diffuse abdominal pain and distention HISTORY OF BLADDER CA RCINOMA NON-SMALL CELL LUNG CARCINOMA. COMPARISON STUDY: December 08, 2018 TECHNIQUE: CT scan of the abdomen and pelvis was performed from the lung bases to the proximal femurs. Images are reviewed in the axial, sagittal, and coronal planes. IV contrast was not administered for this examination. A dose lowering technique was utilized adhering to the principles of ALARA. CT DOSE: 1460.26 mGy.cm FINDINGS: Lower chest: There is severe pulmonary emphysema. There is a persistent 47 x 17 mm lingular opacity. There is a stable opacity at the right medial lung base. There is minor right lower lobe mucus plugging. Liver: The unenhanced liver is normal in size, contour, and attenuation. There is no intrahepatic biliary ductal dilatation. Gallbladder: Unremarkable. Spleen: Normal in size and attenuation. Pancreas: Unremarkable. Adrenal glands: Unremarkable. Kidneys: There are bilateral renal cysts. There are bilateral vascular calcifications. There is a nonobstructing 2.5 mm lower pole right renal calculus. There is no significant hydronephrosis. Bowel: There are no transition zones to indicate bowel obstruction. There is no evidence of acute diverticulitis. The appendix appears normal. Peritoneum: There is no intraperitoneal free air or abdominal ascites. There are bilateral fat-containing inguinal hernias. There is a fat-containing umbilical hernia. There is a stable lipoma within the right lateral abdominal wall musculature. Vasculature: The abdominal aorta is normal in course and caliber. Adenopathy: None. Pelvic viscera: The prostate is enlarged. Skeletal structures: No destructive osseous lesions are seen. IMPRESSION: 1. No evidence of bowel obstruction. No evidence of free air 2. Severe pulmonary emphysema. Stable 47 x 17 mm lingular opacity. Stable opacity at the right medial lung base. 3. No acute inflammatory changes. No evidence of diverticulitis. No evidence of acute appendicitis. 4. Stable right-sided nephrolithiasis ACT 112: Negative or not required by law. Electronically signed by: Shen Orona M.D. 05/24/2019 1:49 PM ECG Data Attestation: I personally reviewed and interpreted this ECG as follows: Indication: + SOB/dyspnea Rate (beats per minute): 98 Rhythm: + normal sinus ECG Intervals/blocks: + Normal QT-c (439) ECG ST segments: no ST depression and no ST elevation ECG Findings: no PACs and no PVCs Blood Pressure Blood Pressure Findings: Elevated blood pressure Blood Pressure Disposition: Referred to patients primary care provider MDM Narrative This is a 75-year-old male who presents emergency department complaining of shortness of breath. Patient has a history of COPD. He was given hour-long breathing treatment here and started on Solu-Medrol. The patient is concerned that his abdomen is distended therefore he was sent for CAT scan of the abdomen pelvis. This did not show any acute process. He does have a slight elevation in his white blood cell count Impression & Plan COPD (chronic obstructive pulmonary disease) Discharge Plan Visit Data *Final* Discharge Date/Time: 05/24/19 20:11 Chief Complaint: Shortness of Breath/Dyspnea ED Provider: Geo Moya Discharge Problem: COPD (chronic obstructive pulmonary disease) Patient Disposition: Admitted As Inpatient Discharge Instructions Interventions: ED Discharge Assessment Last Done: 05/24/19 20:11 Discharge Problem: COPD (chronic obstructive pulmonary disease) Qualifiers: COPD type: unspecified COPD Qualified Code(s): J44.9 - Chronic obstructive pulmonary disease, unspecified The scribe's documentation has been prepared under my direction and personally reviewed by me in its entirety. I confirm that the note above accurately reflects all work, treatment, procedures, and medical decision making performed by me.
--- NOTE | 2019-05-25 13:16 | Hospitalist Progress Note ---
Date of Service May 25, 2019 Assessment & Plan (1) Acute and chronic respiratory failure: Likely due to stage IV lung cancer non-small cell carcinoma. Admit to telemetry Vital signs every 4 hours Continue duo nebs, steroids prednisone 30 mg p.o. every morning Supplemental oxygen Pulm c/s pending CPAP/BiPAP as needed CXR on admission noted for likely atelectesis with severe emphysema CTAP noted for severe emphysema and stable RML opacity Trop neg x1 EKG NSR (2) Lung cancer: As above (3) COPD (chronic obstructive pulmonary disease): As above (4) Bronchogenic cancer: As above.Per Dr. 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 Patient is at the risk of developing paraplegia if patient does not go under radiation oncology treatment. Please follow-up with Dr. Masoud Cruz. Patient also supposed to receive AVAPS with a full facemask with his O2 supplementation. (5) Hypertension: Stable continue amlodipine 5 mg p.o. nightly, furosemide 40 mg p.o. every morning, magnesium oxide 400 mg p.o. twice daily, metolazone 5mg po as directed. (6) Non-small cell carcinoma of left lung: As discussed above. (7) DM w/o complication type II: Holding home metformin SSI PRN A1c 8.0 (8) Hyperlipidemia: Continue atorvastatin 80mg p.o. nightly. LDL 55, HDL 90 (9) Bladder cancer: Continue following up with oncology Dr. Anand. (10) DVT prophylaxis: DVT prophylaxis with heparin 5000 units every 12 hours Full code Subjective Pt states he is SOB with any activity. No SOB at rest. He states his breathing is much better s/p symbicort this AM. No chest pain. He has ongoing issues with LE swelling, R>L. He states he is on steroids for his breathing and that attempts to wean further have not been successful. He does not like to be on steroids as they cause his BS to elevate. He does feel that his joint pain is better since he started them, but that they also cause increased swelling. He is upset with his "heart healthy" diet and fluid restrictions. Pt denies fever, abd pain, n/v/c/d, LE pain. Review of Systems Review of Systems: Pertinent positives and negatives reviewed in HPI--all others negative Physical Exam Constitutional: WD/WN, vitals as above Eyes: normal visual kan by confrontation and + anicteric sclerae Neck: normal visual inspection and trachea midline Respiratory: normal respiratory effort, lungs clear to auscultation Auscultation: + diminished lung sounds Cardiovascular: Rate/Rhythm: regular rate and regular rhythm Gastrointestinal (Abdomen): Inspection/Auscultation: abdomen not distended Percussion/Palpation: abdomen soft; abdomen nontender Musculoskeletal: Head/Neck/Chest: normocephalic and head atraumatic b/l 2+ pitting LE edema, peripheral pulses intact Skin: no rashes, warm and dry Neurologic: awake; not confused Speech / Cognition: normal speech Psychiatric: A+Ox3, euthymic affect Results & Data Vital Signs (Past 12 Hours) Vital Signs Temp Pulse Pulse Resp BP Pulse Ox 05/25/19 11:47 36.8 C 78 18 127/73 100 05/25/19 07:50 36.5 C 83 18 129/80 97 05/25/19 07:33 78 05/25/19 05:43 89 22 99 05/25/19 04:06 36.8 C 83 20 130/81 98 PG Care Time/CCT Total # of Minutes Spent Total Time Spent with Patient: Total time spent is greater than 50% in coordination of care (as documented) at patient's floor/unit and/or counseling patient: (1) Lung cancer Laterality: unspecified laterality Lung location: unspecified part of lung Qualified Code(s): C34.90 - Malignant neoplasm of unspecified part of unspecified bronchus or lung (2) COPD (chronic obstructive pulmonary disease) COPD type: unspecified COPD Qualified Code(s): J44.9 - Chronic obstructive pulmonary disease, unspecified (3) Hypertension Hypertension type: essential hypertension Qualified Code(s): I10 - Essential (primary) hypertension (4) Hyperlipidemia Hyperlipidemia type: mixed hyperlipidemia Qualified Code(s): E78.2 - Mixed hyperlipidemia (5) Bladder cancer Bladder location: unspecified site Qualified Code(s): C67.9 - Malignant neoplasm of bladder, unspecified
--- NOTE | 2019-05-25 14:49 | Pulmonary Consultation ---
Date of Consultation May 25, 2019 Assessment & Plan (1) Acute and chronic respiratory failure: Multifactorial including severe COPD with emphysema Patient on chronic supplemental O2 at home at 3 to 4 L/min via nasal cannula We will continue nebulizer treatments as well as steroids while inpatient We will continue home regimen of bronchodilators No new findings on chest x-ray this admission White count is elevated but this could be secondary to chronic steroid use Check a procalcitonin to trend No clear indication for antibiotics at this time Continue steroid taper as tolerated (2) Metastatic adenocarcinoma: Most recent PET scan January 2019 with slight decrease in size and FDG avidity of the right pleural-based or subpleural lesion mid paraspinal region There is also decreased size and FDG avidity the of the lobar consolidation lingula Continue management with Dr. Anand as an outpatient (3) COPD exacerbation: Continue steroids inpatient and then taper as outlined above in HPI for outpatient taper No clear indication for antibiotics at this time based on presentation No indication of pneumonia on imaging Continue to encourage smoking cessation Patient at baseline supplemental O2 requirements Incentive spirometer Out of bed to chair as tolerated Ambulate in the hallways as tolerated (4) DVT prophylaxis: Agree with Lovenox subcutaneously secondary to patient's known metastatic malignancies Ambulate as tolerated Thank you for including us in the care of this patient. Please refer to Dr. Sanders's addendum and corrections We will follow along with you. Supervising Physician Co-Signing Physician Notes Patient seen and examined with Reinaldo Lee PA-C. I agree with with his assessment and plan aside for any additions or exceptions noted: Patient has essentially end-stage lung disease and stage IV lung cancer. Recommend focusing on comfort at this time. He does have a trilogy at home to prevent exacerbations that he just received. Recommend palliative care consultation as the patient thinks he is supposed to be on hospice. Not unreasonable to continue the 10-day prednisone burst on top of the prednisone that he takes currently. I do not think that he is infected currently. No need for antibiotics at this time. History of Present Illness Attending Physician: Kandice Puri DO History of Present Illness Attending: Dr. Sanders This is a 74-year-old male with severe obstructive lung disease as well as lung and metastatic bladder cancer. The patient has history of hypercarbic respiratory failure and hyperinflation on his PFTs completed 2 years ago. During his last admission he was set up for trilogy noninvasive ventilation. The patient states that the equipment has been delivered to the home but he has not used it yet. The patient is on supplemental O2 at home at 3 L/min via nasal cannula. The patient is on chronic prednisone and indicates he has had significant weight gain secondary to fluid retention which contributes to his shortness of breath. He is on 40 mg p.o. daily of furosemide. He is also on 5 mg of metolazone every Thursday and Thursday. Patient COPD is treated at home with albuterol HFA, albuterol nebs, azelastine, Symbicort, and Spiriva. He follows with Dr. Dodge in the outpatient office and was last seen 04/26/2019. Most recent echocardiogram for this patient is from 03/28/2019 which shows normal left ventricular systolic function and no significant valvular heart disease. There is also no evidence of wall motion abnormalities. Patient states he has a cough but denies fever, significant sputum production, sweats, rigors. The patient is a former smoker with a [id number] smoking history who states that he quit approximately 2 months ago. Regarding his metastatic malignancies, patient follows Dr. Kieran Boykin. He was previously on Opdivo (nivolumab). It was presumed that this caused inflammatory arthritis and patient was referred to rheumatology for consultation and was seen by Dr. Dallin Lawler. Who agreed with discontinuing the Opdivo and prednisone taper to off by 2.5 mg daily every other week as tolerated. If pain continued, patient was to contact Dr. Hinojosa to consider injections to the left knee and left ankle. Patient does have metastatic disease including lesion in the spine. Radiation was proposed to the patient and he refused treatment due to a paranoia of radiation. This was discussed by Dr. Boykin as well as by Dr. Dodge per previous reports. Patient is unclear as to what the current plan is for his malignancy. Patient does have chronic pain from metastatic disease and is on methadone. Serology labs last admission were as follows: Hep A, B, and C titers were negative. Rheumatoid factor was negative. Uric acid level was <6. PFTs from June 11, 2017 showed an FEV1 of 0.83 L or 30% predicted with an FVC of 2.63 L or 76% predicted. Ratio is reduced at 31. Bronchodilators were administered with 38% improvement in the FEV1. The FEV1 improved by a total of 310 mL's Allergies Allergy/AdvReac Type Severity Reaction Status Date / Time Bactrim Allergy Severe TONGUE Verified 12/02/17 08:11 SWELLS/FONG mupirocin Allergy Severe ANAPHYLAXIS Verified 05/24/19 15:05 sulfamethoxazole Allergy Severe TONGUE Verified 05/24/19 15:05 SWELLS/FONG trimethoprim Allergy Severe TONGUE Verified 05/24/19 15:05 SWELLS/FONG Iodinated Contrast Media Allergy Intermediate HIVES/ITCHI Verified 05/24/19 15:05 NG lisinopril Allergy Intermediate Tongue Verified 05/24/19 15:05 Swelling mustard Allergy Intermediate Hives, Verified 05/24/19 15:05 SOB, Itchy aspirin Allergy Mild ITCHY Verified 05/24/19 15:05 adhesive AdvReac Intermediate Tape - Rash Verified 05/24/19 15:05 Home Medications Home Medications Medication Instructions Recorded Confirmed Type albuterol sulfate 2 puff INHALATION Q4H PRN 03/30/18 05/24/19 History atorvastatin 80 mg PO HS 03/30/18 05/24/19 History cyanocobalamin (vitamin B-12) 100 mcg PO QAM 03/30/18 05/24/19 History [Vitamin B-12] docusate sodium 100 mg PO BID 03/30/18 05/24/19 History finasteride 5 mg PO QAM 03/30/18 05/24/19 History pyridoxine (vitamin B6) [Vitamin 100 mg PO QAM 03/30/18 05/24/19 History B-6] terazosin 2 mg PO HS 03/30/18 05/24/19 History cholecalciferol (vitamin D3) 400 400 unit PO QAM cap 12/01/18 05/24/19 History unit capsule magnesium oxide 400 mg PO BID 12/03/18 05/24/19 History amlodipine [Norvasc] 5 mg PO HS 12/07/18 05/24/19 History sennosides 17.2 mg PO BID 12/07/18 05/24/19 History albuterol sulfate 1.25 mg INHALATION QID 12/28/18 05/24/19 History cetirizine 5 mg PO QAM 01/09/19 05/24/19 History diclofenac sodium [Voltaren] 4 applic EXT QID PRN #1 tube 01/15/19 05/24/19 Rx budesonide-formoterol [Symbicort] 2 puff INHALATION BID #1 box 04/05/19 05/24/19 Rx furosemide 40 mg PO QAM #30 tab 04/05/19 05/24/19 Rx methadone 10 mg tablet 10 mg PO QID #12 tab 04/05/19 05/24/19 Rx sodium chloride [Saline Mist] 1 spray NA Q4H PRN #1 btl 04/05/19 05/24/19 Rx azelastine 1 spray INTRANASAL BID 05/24/19 05/24/19 History metformin 500 mg PO QAM 05/24/19 05/24/19 History metolazone 5 mg PO WEFR@0500 05/24/19 05/24/19 History omeprazole 20 mg PO QAM 05/24/19 05/24/19 History potassium chloride 10 meq PO SUMOTU@0500 05/24/19 05/24/19 History potassium chloride 20 meq PO WEFR@0500 05/24/19 05/24/19 History prednisone 30 mg PO QAM 05/24/19 05/24/19 History tiotropium bromide [Spiriva with 1 puff INHALATION QAM 05/24/19 05/24/19 History HandiHaler] Patient History Medical History Acute leg pain (Inactive) Bladder cancer CURRENTLY BEING TREATED W/ CHEMOTHERAPY Bladder cancer metastasized to pelvic region (Acute) BPH (benign prostatic hyperplasia) (Chronic) Chronic back pain Chronic respiratory failure (Chronic) Constipation COPD (chronic obstructive pulmonary disease) (Chronic) COPD (chronic obstructive pulmonary disease) (Chronic) DVT prophylaxis Elevated PSA (Chronic) H/O hematuria (Resolved) H/O malignant neoplasm of skin (Chronic) Hyperlipidemia (Chronic) Hypertension (Resolved) Inguinal hernia BL Left leg swelling (Inactive) Non-small cell lung cancer (Chronic) CURRENTLY BEING TREATED W/ CHEMOTHERAPY Opioid dependence (Chronic) Osteoarthritis Stroke (Chronic) 2009 - NO PERIPHERAL VISION RT SIDE - NO NEUROLOGIST Umbilical hernia Urothelial carcinoma (Chronic) Surgical History H/O hand surgery (Resolved) H/O Moh's micrographic surgery for skin cancer (Resolved) H/O prostate biopsy (Acute) H/O prostatectomy History of bronchoscopy W/ BIOPSY History of colonoscopy History of surgery TRANSURETHRAL RESECTION OF BLADDER TUMOR X 3 History of surgery PLACEMENT OF MEDIPORT W/ REMOVAL History of ureter stent W/ REMOVAL Family History Father , 69yo [place], DM, arthritis, HTN Diabetes Cardiac disorder Hypertension Mother , age 84 from stroke Cardiac disorder Hypertension Brother Diabetes Cardiac disorder Hypertension Cancer, face Sister History of kidney cancer Hypertension Unknown Lung cancer Leukemia Basal cell carcinoma Social History Preferred Language: Lithuanian Communication Ability: Effective Visual Impairment: No Limitations Hearing Ability: Hard of Hearing Salon Receptionist Required: No Beliefs That Will Affect Care: None marital status: marital status details: 1 son and 3 daughters Current Living Situation: Alone Current Living Situation Comment: apartment current occupational status: retired current occupation: [employer] Feels Safe at Home: Yes Safety Concerns: Feels Safe At This Time Smoking Status: Former smoker Tobacco Type: cigarettes ; Cigarettes Per Day: 20 ; Second Hand Exposure: No ; Hx Alcohol Use: No Hx Substance Use: No caffeine: Yes (3 cups/day) during the past year weight has: decreased > 10 lbs Review of Systems Review of Systems: All systems reviewed & are unremarkable except as noted in HPI & below Physical Exam Physical Exam: GENERAL : No acute distress EYES: No icterus, gaze conjugate NOSE: No evidence of epistaxis MOUTH: No lesions or candidiasis NECK: Supple LUNGS: Fine crackles at the bases. No profound wheezes. Distant breath sounds. Good inspiratory effort. HEART: Regular, rate controlled ABDOMEN: Soft, NT, ND, BS Present EXTREMITIES: +3 bilateral LE edema, pedal pulses intact NEURO: A&OX3 Results & Data Vital Signs (Past 12 Hours) Vital Signs Temp Pulse Pulse Resp BP Pulse Ox 05/25/19 11:47 36.8 C 78 18 127/73 100 05/25/19 07:50 36.5 C 83 18 129/80 97 05/25/19 07:33 78 05/25/19 05:43 89 22 99 05/25/19 04:06 36.8 C 83 20 130/81 98 Laboratory Results 05/25/19 07:22 05/25/19 07:22 Diagnostic Findings XR chest 1V portable CLINICAL HISTORY: Chest pain. COMPARISON STUDY: Chest CT March 31, 2019. Chest radiograph March 28, 2019. FINDINGS: There is no pneumothorax or pleural effusion. There is a calcified granuloma within the right upper lobe. Severe emphysema is noted. The right paraspinal mass shown on CT of March 31, 2019 is not well visualized given radiographic technique. Mild lower lung opacity favors atelectasis. Multiple old right rib fractures are noted. IMPRESSION: 1. Severe emphysema. 2. Linear bibasilar opacities which favor atelectasis. An infectious process could appear similar but is considered less likely. ACT 112: Negative or not required by law. Electronically signed by: Giovanny Milian M.D. 05/24/2019 1:10 PM PG Care Time/CCT Total # of Minutes Spent Total Time Spent with Patient: Total time spent is greater than 50% in coordination of care (as documented) at patient's floor/unit and/or counseling patient:
[2019-05-25] MEDS: TERAZOSIN HCL 1 MG CAP PO SCH (21:12)
[2019-05-25] MEDS: ATORVASTATIN 40 MG TAB PO SCH (21:13)
[2019-05-25] MEDS: ENOXAPARIN INJ 40 MG/0.4 ML SYR SQ SCH (21:14)
[2019-05-25] MEDS: AMLODIPINE BESYLATE 5 MG TAB PO SCH (21:15)
[2019-05-26] MEDS: METHADONE HCL 10 MG TAB PO SCH ×5 (00:09→23:46)
[2019-05-26 07:47] LABS: Basophils # (auto) 0.01 K/uL (0-0.2); Basophils % (auto) 0.1 %; Eosinophils # (auto) 0.04 K/uL (0-0.5); Eosinophils % (auto) 0.4 %; Hematocrit (blood only) 36.4 % (42-52); Immature Granulocytes # (auto) 0.18 K/uL (0.00-0.02); Immature Granulocytes % (auto) 1.7 %; Lymphocytes % (auto) 16.9 %; Mean Corpuscular Hemoglobin 30.9 pg (25-34); Mean Corpuscular Volume 93.8 fL (80-100); Mean Platelet Volume 9.4 fL (7.4-10.4); Monocytes # (auto) 1.06 K/uL (0.11-0.59); Neutrophils # (auto) 7.53 K/uL (1.4-6.5); Neutrophils % (auto) 70.9 %; Platelet Count 140 K/uL (130-400); RDW Coefficient of Variation 15.7 % (11.5-14.5); RDW Standard Deviation 53.2 fL (36.4-46.3); Red Blood Count 3.88 M/uL (4.7-6.1); White Blood Count 10.62 K/uL (4.8-10.8)
[2019-05-26 08:26] LABS: Albumin Globulin Ratio 0.9 (0.9-2); BUN Creatinine Ratio 33.5 (10-20); Bilirubin,Total 0.4 mg/dl (0.2-1); Calcium 9.8 mg/dl (8.5-10.1); Creatinine Clr Calc Pharmacy 70.1 ml/min; Est GFR (African American) 71.8; Est GFR (Non-African American) 61.9; Globulin 3.3 gm/dl (2.5-4.0); Potassium 2.7 mmol/L (3.5-5.1); Total Protein 6.3 gm/dl (6.4-8.2)
--- NOTE | 2019-05-26 08:31 | Pharmacy Report ---
Pharmacy Glycemic Short Note 2 - Date of Service May 26, 2019 - Glycemic Short BSG Results (Last 24 hours): 05/25/19 05/25/19 05/25/19 07:41 11:23 16:35 POC Glucose 175 H 135 H 115 H 05/25/19 05/26/19 20:22 07:35 POC Glucose 190 H 86 OUTPATIENT ANTIDIABETIC REGIMEN: * Metformin 500mg PO QAM ASSESSMENT: * Type 2 diabetic, Stage IV lung cancer, palliative care consult * Patient is currently receiving an average of 85 units of insulin per day * 50 units of basal insulin * 35 units of prandial/correctional insulin * BSGs ranging 86-190 over the past 24hrs * Risk factors for insulin resistance are constant over the past 24hrs * Steroid dosing unchanged, 30mg PO daily Prednisone * Anticipating insulin regimen will need decreased for the next 24hrs d/t : * AM Fasting BSG = 86mg/dl therefore Basal insulin needs decrease, will only decrease Lantus, as NPH is covering steroid effects, and loosen CF as the CF given at bedtime last night may also be contributing to lower fasting blood sugar. This blood sugar is at goal, but will make adjustments to prevent hypoglycemia, especially with patient's prognosis and goals. * CR - loosen slightly, as above, to prevent hypoglycemia. PLAN FOR INPATIENT GLYCEMIC CONTROL: * Hold outpatient oral diabetes medications * Basal insulin * DECREASE Lantus to 15 units SQ daily * Continue NPH 30 units SQ daily with Prednisone 30mg daily * Bolus insulin * NovoLog per scale ACHS or Q6hrs while NPO * Goal Range: Low 110 mg/dL - High 140 mg/dL * LOOSEN: Correction Factor: 20 mg/dL/unit * LOOSEN: Nutritional / Prandial insulin per carb ratio of 1 unit per 7 grams CHO consumed PLAN FOR DISCHARGE: * A1c 8.0%, somewhat unreliable d/t steroid use, acceptable for patient's prognosis and goals, continue Metformin at home as prescribed. * If patient goes home on prednisone taper, recommend giving NPH with each prednisone dose, doses to be determined when discharge plans are made.
[2019-05-26] MEDS: predniSONE 10 MG TABLET PO SCH (08:37)
[2019-05-26] MEDS: DOCUSATE SODIUM 100 MG CAP PO SCH ×2 (08:37→20:51)
[2019-05-26] MEDS: POTASSIUM CHLORIDE 20 MEQ TABCR PO SCH (08:37)
[2019-05-26] MEDS: SENNA 8.6 MG TAB PO SCH ×2 (08:37→20:53)
[2019-05-26] MEDS: PANTOprazole 40 MG TAB PO SCH (08:38)
[2019-05-26] MEDS: PYRIDOXINE HCL 50 MG TAB PO SCH (08:38)
[2019-05-26] MEDS: CETIRIZINE HCL 10 MG TABLET PO SCH (08:38)
[2019-05-26] MEDS: BUDESONIDE/FORMOTEROL FUMARATE 160/4.5 60 PUFFS/INHALER INH SCH ×2 (08:41→20:54)
[2019-05-26] MEDS: FUROSEMIDE 40 MG TAB PO SCH (08:42)
[2019-05-26] MEDS: CYANOCOBALAMIN (VITAMIN B-12) 100 MCG TABLET PO SCH (08:42)
[2019-05-26] MEDS: TIOTROPIUM BROMIDE 5 PUFF/90 MCG INH INH SCH (08:43)
[2019-05-26] MEDS: FINASTERIDE 5 MG TAB PO SCH (08:43)
[2019-05-26] MEDS: MAGNESIUM OXIDE 400 MG TAB PO SCH ×2 (08:44→20:53)
[2019-05-26] MEDS: CHOLECALCIFEROL 1,000 UNITS TAB PO SCH (08:47)
[2019-05-26] MEDS: INSULIN HUMAN NPH SC SCH (08:47)
[2019-05-26] MEDS: INSULIN ASPART 100 UNITS/ML 3 ML PEN SC SCH ×4 (08:48→20:55)
[2019-05-26] MEDS ORDERED: INSULIN GLARGINE SOLOSTAR 100 UNITS/ML 3 ML PEN SC SCH (09:00)
[2019-05-26] MEDS ORDERED: POTASSIUM CHLORIDE 20 MEQ TABCR PO STA (10:59)
--- NOTE | 2019-05-26 15:06 | Palliative Care Consultation ---
Date of Consultation May 26, 2019 Assessment & Plan (1) Goals of care, counseling/discussion: -74 year old male patient with PMH chronic respiratory failure on continuous home oxygen at 2-3LPM, DM type 2, benign prostatic hypertrophy, stage IV lung cancer currently not under treatment, chronic pain on methadone, hypertension, hyperlipidemia who presented to the hospice a couple days ago with severe shortness of breath and acute respiratory failure. CXR showed no new findings. This is likely COPD exacerbation. Patient also has history of bladder cancer. He is currently not on any treatment for the lung cancer as he had negative reaction to Opdivo in the past. In review of records, patient's lung cancer and paraspinal mass are actually stable for some time now. And while his COPD is severe, it seems that it has also been stable for years. Patient follows closely with Dr. Dodge for pulmonology. Patient mentioned to the statuary painter yesterday that he has refused XRT for the spinal mass and thought that he was supposed to be on hospice. Palliative care is consulted to discuss goals of care. -Met with patient in room 262-1. Patient is awake, alert and oriented x4. Patient has a somewhat irritable affect-- not necessarily toward me, but just with healthcare in general. -Patient went on for a good 30 minutes about all the things that have gone wrong for him in regards to his health in the last 50 years or so. He is frustrated with having so many health care providers and no one communicates. He is mostly worried about his compounding medical bills at home. -Once we circled back around to goals of care, patient states that he wants to remain at home for as long as possible and wants to live as long as he can. Patient states that he has heard about hospice and thought they were supposed to come into his home to see him, but he never got a call. -We talked at length about what hospice is and what it entails. Patient said, "Well, no, I'm not ready to just lay at home and ." I explained that is not what hospice's goal is, but to it is to keep people comfortable at home and allow nature to take its course. -Patient is insistent on wanting to speak to a hospice account retention representative, but he is still unsure if he wants hospice at this point in his life. I also agree that I'm not sure this is what patient's current goal is. he clearly stated he wants to remain a full code and continue to come to the hospital when he is not feeling well. Patient is chronically, severely ill, but it is unclear to me whether or not he is currently declining. In this situation, I think it would be helpful for patient to continue this conversation with his PCP or physician who knows him well. Certainly, if patient continues to have these readmissions and does in fact seem to be worsening/declining, my team would be happy to see him again in the hospital. -Patient has a sister and three children in the area. He does not have a power of family law attorney, which I encouraged him to have completed. He is unsure who would make medical decisions for him if he is unable. -For now, palliative care will sign off. gis manager is going to find out which hospice agency the [place] would be okay with us making a referral to. -Thanks for this consult. (2) Non-small cell carcinoma of left lung: (3) Acute and chronic respiratory failure: (4) Acute bronchitis: Bronchitis organism: unspecified organism Qualified Code(s): J20.9 - Acute bronchitis, unspecified History of Present Illness Attending Physician: Sherif Lawler History of Present Illness This 74 year old male patient with PMH chronic respiratory failure on continuous home oxygen at 2-3LPM, DM type 2, benign prostatic hypertrophy, stage IV lung cancer currently not under treatment, chronic pain on methadone, hypertension, hyperlipidemia who presented to the hospice a couple days ago with severe shortness of breath and acute respiratory failure. CXR showed no new findings. This is likely COPD exacerbation. Patient also has history of bladder cancer. He is currently not on any treatment for the lung cancer as he had negative reaction to Opdivo in the past. In review of records, patient's lung cancer and paraspinal mass are actually stable for some time now. And while his COPD is severe, it seems that it has also been stable for years. Patient follows closely with Dr. Dodge for pulmonology. Patient mentioned to the statuary painter yesterday that he has refused XRT for the spinal mass and thought that he was supposed to be on hospice. Palliative care is consulted to discuss goals of care. Thank you kindly for this consult. Palliative care team will follow as needed. Allergies Allergy/AdvReac Type Severity Reaction Status Date / Time Bactrim Allergy Severe TONGUE Verified 12/02/17 08:11 SWELLS/FONG mupirocin Allergy Severe ANAPHYLAXIS Verified 05/24/19 15:05 sulfamethoxazole Allergy Severe TONGUE Verified 05/24/19 15:05 SWELLS/FONG trimethoprim Allergy Severe TONGUE Verified 05/24/19 15:05 SWELLS/FONG Iodinated Contrast Media Allergy Intermediate HIVES/ITCHI Verified 05/24/19 15:05 NG lisinopril Allergy Intermediate Tongue Verified 05/24/19 15:05 Swelling mustard Allergy Intermediate Hives, Verified 05/24/19 15:05 SOB, Itchy aspirin Allergy Mild ITCHY Verified 05/24/19 15:05 adhesive AdvReac Intermediate Tape - Rash Verified 05/24/19 15:05 Home Medications Home Medications Medication Instructions Recorded Confirmed Type albuterol sulfate 2 puff INHALATION Q4H PRN 03/30/18 05/24/19 History atorvastatin 80 mg PO HS 03/30/18 05/24/19 History cyanocobalamin (vitamin B-12) 100 mcg PO QAM 03/30/18 05/24/19 History [Vitamin B-12] docusate sodium 100 mg PO BID 03/30/18 05/24/19 History finasteride 5 mg PO QAM 03/30/18 05/24/19 History pyridoxine (vitamin B6) [Vitamin 100 mg PO QAM 03/30/18 05/24/19 History B-6] terazosin 2 mg PO HS 03/30/18 05/24/19 History cholecalciferol (vitamin D3) 400 400 unit PO QAM cap 12/01/18 05/24/19 History unit capsule magnesium oxide 400 mg PO BID 12/03/18 05/24/19 History amlodipine [Norvasc] 5 mg PO HS 12/07/18 05/24/19 History sennosides 17.2 mg PO BID 12/07/18 05/24/19 History albuterol sulfate 1.25 mg INHALATION QID 12/28/18 05/24/19 History cetirizine 5 mg PO QAM 01/09/19 05/24/19 History diclofenac sodium [Voltaren] 4 applic EXT QID PRN #1 tube 08/31/19 01/07/20 Rx budesonide-formoterol [Symbicort] 2 puff INHALATION BID #1 box 04/05/19 05/24/19 Rx furosemide 40 mg PO QAM #30 tab 04/05/19 05/24/19 Rx methadone 10 mg tablet 10 mg PO QID #12 tab 04/05/19 05/24/19 Rx sodium chloride [Saline Mist] 1 spray NA Q4H PRN #1 btl 04/05/19 05/24/19 Rx azelastine 1 spray INTRANASAL BID 05/24/19 05/24/19 History metformin 500 mg PO QAM 05/24/19 05/24/19 History metolazone 5 mg PO WEFR@0500 05/24/19 05/24/19 History omeprazole 20 mg PO QAM 05/24/19 05/24/19 History potassium chloride 10 meq PO SUMOTU@0500 05/24/19 05/24/19 History potassium chloride 20 meq PO WEFR@0500 05/24/19 05/24/19 History prednisone 30 mg PO QAM 05/24/19 05/24/19 History tiotropium bromide [Spiriva with 1 puff INHALATION QAM 05/24/19 05/24/19 History HandiHaler] Patient History Medical History Acute leg pain (Inactive) Bladder cancer CURRENTLY BEING TREATED W/ CHEMOTHERAPY Bladder cancer metastasized to pelvic region (Acute) BPH (benign prostatic hyperplasia) (Chronic) Chronic back pain Chronic respiratory failure (Chronic) Constipation COPD (chronic obstructive pulmonary disease) (Chronic) COPD (chronic obstructive pulmonary disease) (Chronic) DVT prophylaxis Elevated PSA (Chronic) H/O hematuria (Resolved) H/O malignant neoplasm of skin (Chronic) Hyperlipidemia (Chronic) Hypertension (Resolved) Inguinal hernia BL Left leg swelling (Inactive) Non-small cell lung cancer (Chronic) CURRENTLY BEING TREATED W/ CHEMOTHERAPY Opioid dependence (Chronic) Osteoarthritis Stroke (Chronic) 2009 - NO PERIPHERAL VISION RT SIDE - NO NEUROLOGIST Umbilical hernia Urothelial carcinoma (Chronic) Surgical History H/O hand surgery (Resolved) H/O Moh's micrographic surgery for skin cancer (Resolved) H/O prostate biopsy (Acute) H/O prostatectomy History of bronchoscopy W/ BIOPSY History of colonoscopy History of surgery TRANSURETHRAL RESECTION OF BLADDER TUMOR X 3 History of surgery PLACEMENT OF MEDIPORT W/ REMOVAL History of ureter stent W/ REMOVAL Family History Father , 69yo [place], DM, arthritis, HTN Diabetes Cardiac disorder Hypertension Mother , age 84 from stroke Cardiac disorder Hypertension Brother Diabetes Cardiac disorder Hypertension Cancer, face Sister History of kidney cancer Hypertension Unknown Lung cancer Leukemia Basal cell carcinoma Social History Preferred Language: Tajik Communication Ability: Effective Visual Impairment: No Limitations Hearing Ability: Hard of Hearing Audio Tape Librarian Required: No Beliefs That Will Affect Care: None marital status: marital status details: 1 son and 3 daughters Current Living Situation: Alone Current Living Situation Comment: apartment current occupational status: 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 Feels Safe at Home: Yes Safety Concerns: Feels Safe At This Time Smoking Status: Former smoker Tobacco Type: cigarettes ; Cigarettes Per Day: 20 ; Second Hand Exposure: No ; Hx Alcohol Use: No Hx Substance Use: No caffeine: Yes (3 cups/day) during the past year weight has: decreased > 10 lbs Review of Systems Constitutional: + weight gain (in last six months) Ear, Nose, Mouth, Throat: no dysphagia Respiratory: + cough and + dyspnea on exertion Gastrointestinal: no abdominal pain, no nausea and no vomiting Neurologic: no confusion Psychiatric: no anxiety Physical Exam Constitutional: + morbidly obese; no acute distress ENMT: external ear and nose normal, oropharynx normal Respiratory: + labored breathing Auscultation: + diminished lung sounds Cardiovascular: Rate/Rhythm: regular rate and regular rhythm Extremities: + edema (right leg with +2 pitting edema, left leg with trace edema) Gastrointestinal (Abdomen): Inspection/Auscultation: + abdomen distended (obesely distended) and normal bowel sounds Percussion/Palpation: abdomen soft Neurologic: moves all extremities and awake; not confused Psychiatric: Orientation: alert and oriented x 3 Affect: + irritable affect Insight: + limited insight Judgement: good judgement Results & Data Vital Signs (Past 12 Hours) Vital Signs Temp Pulse Pulse Resp BP Pulse Ox Pulse Ox 05/26/19 14:59 36.7 C 89 20 142/70 H 96 05/26/19 14:29 94 05/26/19 11:33 36.4 C L 79 22 138/70 95 05/26/19 10:44 93 05/26/19 07:30 36.3 C L 71 22 130/78 98 05/26/19 07:13 77 05/26/19 04:07 36.3 C L 71 18 144/63 H 96 Pulse Ox 05/26/19 14:59 05/26/19 14:29 91 05/26/19 11:33 05/26/19 10:44 05/26/19 07:30 05/26/19 07:13 05/26/19 04:07 Time Spent Midlevel 70 minutes with >50% of the time spent at bedside with patient discussing condition and GOC.
[2019-05-26] MEDS: POTASSIUM CHLORIDE / WTR 10 MEQ/100 ML PLCT IV SCH ×2 (15:48→17:20)
[2019-05-26] MEDS ORDERED: FUROSEMIDE 40 MG TAB PO ONE (17:01)
[2019-05-26] MEDS: ENOXAPARIN INJ 40 MG/0.4 ML SYR SQ SCH (20:51)
[2019-05-26] MEDS: ATORVASTATIN 40 MG TAB PO SCH (20:52)
[2019-05-26] MEDS: TERAZOSIN HCL 1 MG CAP PO SCH (20:52)
[2019-05-26] MEDS: AMLODIPINE BESYLATE 5 MG TAB PO SCH (20:53)
--- NOTE | 2019-05-26 21:28 | Hospitalist Progress Note ---
Date of Service May 26, 2019 Assessment & Plan (1) Acute and chronic respiratory failure: acute component - COPD exacerbation +/- volume overload (diastolic CHF). seen by pulmonary - continue prednisone, nebs, inhalers, etc. diastolic CHF - diurese. is on home O2 at home - 4 liters continuously. (2) COPD (chronic obstructive pulmonary disease): steroid dependent for many months. follows with Dr Dodge. attempts to wean below 30mg each day have not been successful for some time. he may have an exacerbation - cont nebs, supportive care. 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 Patient has previously refused palliative xrt. He denies any back pain today. He previously was taking immune-modulating palliative chemo but developed immune mediated polyarticular arthritis and it was never resumed. (4) Non-small cell carcinoma of left lung: As discussed above. (5) Hypertension: Stable. continue amlodipine 5 mg p.o. nightly, furosemide 40 mg p.o. every morning, magnesium oxide 400 mg p.o. twice daily, metolazone 5mg po twice a week. (6) DM w/o complication type II: hold metformin cont SC insulin regimen of AM NPH, lantus daily and novolog sliding scale control adequate at this time (7) Hyperlipidemia: remains on statin (8) Bladder cancer: noted both lung and bladder ca followed by Dr Anand (9) Edema: suspect 2nd to chronic prednisone usage which is causing fluid retention cannot rule out acute/chronic diastolic CHF most recent albumin and TSH both acceptable Cr stable edema is not symmetric - right leg worse than left leg last doppler of legs - 03/2019 negative will repeat venous duplex of RLE today just in case giving additional lasix today 40mg po x 1 this afternoon consider BID dosing of lasix until back down to baseline weight (10) Hypokalemia: 2nd to lasix and twice weekly metazolone replace with PO KCL and IV KCL checked mag today - wnl repeat BMP am (11) Morbid obesity with BMI of 40.0-44.9, adult: BMI 40.7 (12) DVT prophylaxis: heparin 5000 units every 12 hours - given CrCL would change to q8h dosing in light of end-stage, steroid dependent lung disease in setting of cancer palliative care was asked to see in consult of note - this is his 7th admission to [facility] in the last 12 calendar months has poor social support, lives alone, etc appreciate palliative care and social work assistance Subjective patient resting comfortably in bed during my visit he complaints of dyspnea, fluid retention/weight gain, and simply not "doing well" he can't tell me exact numbers but thinks his weight is up at least 5-10 pounds with respect to dyspnea he has shortness of breath with simply moving in the bed denies any cough Review of Systems Constitutional: + fatigue; no fever Respiratory: + dyspnea and + dyspnea on exertion Cardiovascular: + orthopnea and + edema (worse right leg); no chest pain, no chest pain with activity and no dyspnea at rest Gastrointestinal: + abdominal pain; no nausea and no vomiting Physical Exam Constitutional: + morbidly obese; no acute distress cushingnoid ENMT: external ear and nose normal, oropharynx normal Respiratory: Auscultation: + diminished lung sounds, + crackles and + wheezes Cardiovascular: Rate/Rhythm: regular rate and regular rhythm Heart Sounds: normal S1 and normal S2; no murmur Vessels: posterior tibial pulses present and dorsalis pedis pulses present; no JVD Extremities: + edema (2+ on right, 1+ on left) Gastrointestinal (Abdomen): normal bowel sounds, soft, nontender, no hepatosplenomegaly Psychiatric: Orientation: alert and oriented x 3 Results & Data Vital Signs (Past 12 Hours) Vital Signs Temp Pulse Pulse Resp BP BP Pulse Ox 05/26/19 20:03 36.4 C L 79 18 111/65 97 05/26/19 16:00 78 05/26/19 14:59 36.7 C 89 20 142/70 H 96 05/26/19 14:29 05/26/19 11:33 36.4 C L 79 22 138/70 95 05/26/19 10:44 93 Pulse Ox Pulse Ox 05/26/19 20:03 05/26/19 16:00 05/26/19 14:59 05/26/19 14:29 94 91 05/26/19 11:33 05/26/19 10:44 Laboratory Results Laboratory Results - last 24 hr 05/26/19 05/26/19 05/26/19 07:27 07:27 07:27 WBC 10.62 RBC 3.88 L Hgb 12.0 L Hct 36.4 L MCV 93.8 MCH 30.9 MCHC 33.0 RDW Std Deviation 53.2 H RDW Coeff of James 15.7 H Plt Count 140 MPV 9.4 Immature Gran % (Auto) 1.7 Neut % (Auto) 70.9 Lymph % (Auto) 16.9 Dillon % (Auto) 10.0 Eos % (Auto) 0.4 Baso % (Auto) 0.1 Immature Gran # (Auto) 0.18 H Neut # (Auto) 7.53 H Lymph # (Auto) 1.80 Dillon # (Auto) 1.06 H Eos # (Auto) 0.04 Baso # (Auto) 0.01 Sodium 139 Potassium 2.7 L D Chloride 96 L Carbon Dioxide 36 H Anion Gap 7.0 BUN 39 H Creatinine 1.17 Est Cr Clr Drug Dosing 70.1 Est GFR ( Amer) 71.8 Est GFR (Non-Af Amer) 61.9 BUN/Creatinine Ratio 33.5 H Glucose 76 POC Glucose Calcium 9.8 Magnesium 2.2 Total Bilirubin 0.4 AST 25 ALT 39 Alkaline Phosphatase 69 Total Protein 6.3 L Albumin 3.0 L Globulin 3.3 Albumin/Globulin Ratio 0.9 05/26/19 05/26/19 05/26/19 07:35 11:41 16:31 WBC RBC Hgb Hct MCV MCH MCHC RDW Std Deviation RDW Coeff of James Plt Count MPV Immature Gran % (Auto) Neut % (Auto) Lymph % (Auto) Dillon % (Auto) Eos % (Auto) Baso % (Auto) Immature Gran # (Auto) Neut # (Auto) Lymph # (Auto) Dillon # (Auto) Eos # (Auto) Baso # (Auto) Sodium Potassium Chloride Carbon Dioxide Anion Gap BUN Creatinine Est Cr Clr Drug Dosing Est GFR ( Amer) Est GFR (Non-Af Amer) BUN/Creatinine Ratio Glucose POC Glucose 86 116 H 84 Calcium Magnesium Total Bilirubin AST ALT Alkaline Phosphatase Total Protein Albumin Globulin Albumin/Globulin Ratio 05/26/19 20:22 WBC RBC Hgb Hct MCV MCH MCHC RDW Std Deviation RDW Coeff of James Plt Count MPV Immature Gran % (Auto) Neut % (Auto) Lymph % (Auto) Dillon % (Auto) Eos % (Auto) Baso % (Auto) Immature Gran # (Auto) Neut # (Auto) Lymph # (Auto) Dillon # (Auto) Eos # (Auto) Baso # (Auto) Sodium Potassium Chloride Carbon Dioxide Anion Gap BUN Creatinine Est Cr Clr Drug Dosing Est GFR ( Amer) Est GFR (Non-Af Amer) BUN/Creatinine Ratio Glucose POC Glucose 164 H Calcium Magnesium Total Bilirubin AST ALT Alkaline Phosphatase Total Protein Albumin Globulin Albumin/Globulin Ratio PG Care Time/CCT Total # of Minutes Spent Total Time Spent with Patient: Total time spent is greater than 50% in coordination of care (as documented) at patient's floor/unit and/or counseling patient: (1) Bladder cancer Bladder location: unspecified site Qualified Code(s): C67.9 - Malignant neoplasm of bladder, unspecified (2) Hyperlipidemia Hyperlipidemia type: mixed hyperlipidemia Qualified Code(s): E78.2 - Mixed hyperlipidemia (3) COPD (chronic obstructive pulmonary disease) COPD type: unspecified COPD Qualified Code(s): J44.9 - Chronic obstructive pulmonary disease, unspecified (4) Hypertension Hypertension type: essential hypertension Qualified Code(s): I10 - Essential (primary) hypertension
--- NOTE | 2019-05-26 22:36 | Ultrasound Report ---
RIGHT LOWER EXTREMITY VENOUS DOPPLER CLINICAL HISTORY: RLE edema, stage 4 cancer; eval for DVT COMPARISON STUDY: Bilateral lower extremity venous Doppler ultrasound March 28, 2019. TECHNIQUE: Sonography of the deep venous system of the right lower extremity was performed. Compress ion and augmentation were evaluated. FINDINGS: The right common femoral, superficial femoral and popliteal veins were compressible. Augme ntation was normal. Flow was shown within the deep calf vessels. IMPRESSION: No evidence of deep venous thrombus within the right lower extremity. ACT 112: Negative or not required by law. Electronically signed by: Giovanny Milian M.D. 05/26/2019 10:35 PM
[2019-05-27] MEDS: metOLazone 5 MG TABLET PO SCH (04:58)
[2019-05-27] MEDS: METHADONE HCL 10 MG TAB PO SCH ×3 (04:58→17:38)
[2019-05-27 07:03] LABS: Basophils # (auto) 0.01 K/uL (0-0.2); Basophils % (auto) 0.1 %; Eosinophils # (auto) 0.04 K/uL (0-0.5); Eosinophils % (auto) 0.4 %; Hemoglobin 11.9 g/dL (14.0-18.0); Immature Granulocytes # (auto) 0.19 K/uL (0.00-0.02); Lymphocytes # (auto) 1.96 K/uL (1.2-3.4); Lymphocytes % (auto) 20.6 %; Mean Corpuscular Hemoglobin 31.4 pg (25-34); Mean Corpuscular Hgb Conc 33.1 g/dL (32-36); Mean Platelet Volume 9.7 fL (7.4-10.4); Monocytes # (auto) 0.98 K/uL (0.11-0.59); Monocytes % (auto) 10.3 %; Neutrophils # (auto) 6.32 K/uL (1.4-6.5); Neutrophils % (auto) 66.6 %; Platelet Count 143 K/uL (130-400); RDW Coefficient of Variation 15.7 % (11.5-14.5); RDW Standard Deviation 54.1 fL (36.4-46.3); Red Blood Count 3.79 M/uL (4.7-6.1)
[2019-05-27 07:32] LABS: Albumin Level 2.9 gm/dl (3.4-5.0); Est GFR (African American) 69.6; Est GFR (Non-African American) 60.1; Potassium 2.7 mmol/L (3.5-5.1)
[2019-05-27 07:35] LABS: Albumin Globulin Ratio 0.9 (0.9-2); Bilirubin,Total 0.5 mg/dl (0.2-1); Globulin 3.2 gm/dl (2.5-4.0); Total Protein 6.1 gm/dl (6.4-8.2)
[2019-05-27] MEDS: TIOTROPIUM BROMIDE 5 PUFF/90 MCG INH INH SCH (08:15)
[2019-05-27] MEDS: MAGNESIUM OXIDE 400 MG TAB PO SCH ×2 (08:16→21:13)
[2019-05-27] MEDS: CETIRIZINE HCL 10 MG TABLET PO SCH (08:16)
[2019-05-27] MEDS: FUROSEMIDE 40 MG TAB PO SCH ×2 (08:16→17:39)
[2019-05-27] MEDS: predniSONE 10 MG TABLET PO SCH (08:17)
[2019-05-27] MEDS: CYANOCOBALAMIN (VITAMIN B-12) 100 MCG TABLET PO SCH (08:17)
[2019-05-27] MEDS: PYRIDOXINE HCL 50 MG TAB PO SCH (08:17)
[2019-05-27] MEDS: SENNA 8.6 MG TAB PO SCH ×2 (08:17→21:13)
[2019-05-27] MEDS: FINASTERIDE 5 MG TAB PO SCH (08:18)
[2019-05-27] MEDS: CHOLECALCIFEROL 1,000 UNITS TAB PO SCH (08:18)
[2019-05-27] MEDS: POTASSIUM CHLORIDE 20 MEQ TABCR PO SCH (08:18)
[2019-05-27] MEDS: PANTOprazole 40 MG TAB PO SCH (08:18)
[2019-05-27] MEDS: DOCUSATE SODIUM 100 MG CAP PO SCH ×2 (08:18→21:09)
[2019-05-27] MEDS: BUDESONIDE/FORMOTEROL FUMARATE 160/4.5 60 PUFFS/INHALER INH SCH ×2 (08:19→21:14)
[2019-05-27] MEDS: INSULIN GLARGINE SOLOSTAR 100 UNITS/ML 3 ML PEN SC SCH (08:20)
[2019-05-27] MEDS: INSULIN HUMAN NPH SC SCH (08:21)
[2019-05-27] MEDS: INSULIN ASPART 100 UNITS/ML 3 ML PEN SC SCH ×4 (08:28→21:15)
[2019-05-27] MEDS ORDERED: INSULIN GLARGINE SOLOSTAR 100 UNITS/ML 3 ML PEN SC SCH (09:00)
--- NOTE | 2019-05-27 09:40 | Pharmacy Report ---
Pharmacy Glycemic Short Note 2 - Date of Service May 27, 2019 - Glycemic Short BSG Results (Last 24 hours): 05/26/19 05/26/19 05/26/19 11:41 16:31 20:22 Glucose POC Glucose 116 H 84 164 H 05/27/19 05/27/19 05/27/19 06:38 07:37 07:39 Glucose 73 POC Glucose 69 L* 76 OUTPATIENT ANTIDIABETIC REGIMEN: * Metformin 500mg PO QAM ASSESSMENT: * Type 2 diabetic, Stage IV lung cancer, palliative care consult * Patient is currently receiving an average of 76 units of insulin per day * 45 units of basal insulin * 31 units of prandial/correctional insulin * BSGs ranging 69-164 over the past 24hrs * Risk factors for insulin resistance are constant over the past 24hrs * Steroid dosing unchanged, 30mg PO daily Prednisone * Anticipating insulin regimen will need decreased for the next 24hrs d/t : * AM Fasting BSG = 73mg/dl, as low as 69m/dl, despite reductions yesterday, therefore Basal insulin needs decreased further, will only decrease Lantus, as NPH is covering steroid effects, and loosen CF and CR further to prevent hypoglycemia, especially with patient's prognosis and goals. PLAN FOR INPATIENT GLYCEMIC CONTROL: * Hold outpatient oral diabetes medications * Basal insulin * DECREASE Lantus to 10 units SQ daily * Continue NPH 30 units SQ daily with Prednisone 30mg daily * Bolus insulin * NovoLog per scale ACHS or Q6hrs while NPO * Goal Range: Low 110 mg/dL - High 140 mg/dL * LOOSEN: Correction Factor: 25 mg/dL/unit * LOOSEN: Nutritional / Prandial insulin per carb ratio of 1 unit per 8 grams CHO consumed PLAN FOR DISCHARGE: * A1c 8.0%, somewhat unreliable d/t steroid use, acceptable for patient's prognosis and goals, continue Metformin at home as prescribed. * If patient goes home on prednisone taper, recommend giving NPH given with each prednisone dose as follows: * Prednisone 30mg - give NPH 30 units * Prednisone 27.5mg - give NPH 27 units * Prednisone 25mg - give NPH 25 units * Prednisone 20mg - give NPH 20 units * Prednisone 17.5mg - give NPH 17 units * Prednisone 15mg - give NPH 15 units * Prednisone 12.5mg - give NPH 12 units * Prednisone 10mg - give NPH 10 units * Prednisone 7.5mg - give NPH 7 units * Prednisone 5mg - give NPH 5 units
[2019-05-27] MEDS ORDERED: POTASSIUM CHLORIDE 20 MEQ TABCR PO ONE (09:45)
[2019-05-27] MEDS ORDERED: SODIUM CHLORIDE 0.65% NA SOLN 45 ML (OCEAN) PRN (10:16)
[2019-05-27] MEDS ORDERED: ALBUT/IPRATROP 3MG/0.5MG NEB 3 ML VIAL NEB PRN (14:55)
--- NOTE | 2019-05-27 15:08 | Hospitalist Progress Note ---
Date of Service May 27, 2019 Assessment & Plan (1) Acute and chronic respiratory failure: - Acute on chronic resp failure, likely related to CHF exacerbation vs. COPD. - CXR with severe emphysema and atelectasis. - Currently requiring 4L via NC -- home requirements but has increased SOB; pt. has not been wearing NC piece in his nose due to nasal congestion. - Diuresis BID as noted below. - Continue home inhalers along with scheduled Duonebs q6hr. (2) COPD (chronic obstructive pulmonary disease): - Has been steroid dependent for many months, cannot taper below 30 mg daily. - Follows with Dr. Dodge. - Continue Pred 30 mg daily, Symbicort BID, Spiriva daily with Duonebs q6hr scheduled. - CXR neg on admission; consider addition of abx coverage for persistent sinus congestion to treat bacterial sinusitis. 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 - Patient has previously refused palliative xrt. 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 - Palliative consulted to discuss goals of care; [facility] (4) Non-small cell carcinoma of left lung: - As discussed above. (5) Acute on chronic diastolic CHF (congestive heart failure): - Most recent echo Mar 2019 showed preserved EF, no significant valvular disease. - May have fluid retention 2/2 chronic prednisone usage. - Monitor net I/Os and daily weights -- weight increased by ~10 kg compared to Jan 2019. - Albumin level was acceptable. - Doppler of RLE negative for DVT. - Increase Lasix to 40 mg PO BID; monitor renal function closely. Also on Metolazone twice weekly. - No indication for ACEI/ARB or beta dean therapy. (6) Nasal congestion: - Possibly related to viral URI. - Mucinex 1200 mg BID; saline nasal spray q4hr. - Consider addition of abx coverage if no improvement for bacterial sinusitis. (7) Hypertension: - Continue Amlodipine 5 mg, Lasix BID and Metolazone 5 mg twice weekly. 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 - Holding home Metformin. - NPH at 8 am daily; SSI coverage with Lantus 10 units daily. - Pharmacy following for steroid induced hyperglycemia. (9) Hyperlipidemia: - Continue statin agent. (10) Bladder cancer: - Follows with Dr. Anand. (11) Chronic pain: - Continue Methadone as prescribed. (12) Hypokalemia: - In setting of diuretic therapy. - K level 2.7 - ordered K 80 mEq PO. - Monitor levels daily. (13) Morbid obesity with BMI of 40.0-44.9, adult: - BMI 40.7. - Encourage weight loss and exercise. (14) DVT prophylaxis: - Lovenox daily. Dispo: Downgrade to med/surg; discharge pending improvement in acute resp failure. Patient is considering hospice. Subjective Pt. has ongoing SOB with exertion, on 4L via NC. He c/o nasal congestion, reports he cannot use nasal cannula due to congestion. Pt. has been placing NC in his mouth for oxygen flow, refused oxymask option when offered. He has had nasal congestion for 1 week, clear-white sputum but denies cough, sore throat, fever/chills. Review of Systems Review of Systems: All systems reviewed & are unremarkable except as noted in HPI & below Constitutional: + fatigue and + weakness; no fever, no chills and no anorexia Ear, Nose, Mouth, Throat: + nasal congestion; no post nasal drip and no sore throat Respiratory: + dyspnea and + dyspnea on exertion; no cough and no wheezing Cardiovascular: no chest pain, no palpitations and no edema Gastrointestinal: no abdominal pain, no nausea, no vomiting and no constipation Genitourinary: no difficulty urinating Musculoskeletal: no back pain and no joint pain Integumentary: no non-healing lesions Physical Exam Physical Exam: General: Chronically ill appearing elderly male. HEENT: NC/AT; PERRLA with EOMI; [place] conjunctiva, MMM. No erythema of posterior pharynx Neck: Supple and nontender Cardiac: RRR Lungs: NC placed in the patients mouth; bibasilar crackles noted. Abdomen: Bowel normoactive X 4; Nontender to palpation Extremities: Warm. Mild +1 pitting edema. Neuro: No focal weakness Skin: No rash Results & Data Vital Signs (Past 12 Hours) Vital Signs Temp Pulse Resp BP BP Pulse Ox 05/27/19 13:20 96 05/27/19 11:52 36.4 C L 72 22 129/74 95 05/27/19 07:10 36.6 C 80 20 145/79 H 94 05/27/19 03:53 36.7 C 83 18 114/72 91 Laboratory Results 05/27/19 05/27/19 05/27/19 Range/Units 11:38 07:39 07:37 WBC (4.8-10.8) K/uL RBC (4.7-6.1) M/uL Hgb (14.0-18.0) g/dL Hct (42-52) % MCV (80-100) fL MCH (25-34) pg MCHC (32-36) g/dL RDW Std Deviation (36.4-46.3) fL RDW Coeff of James (11.5-14.5) % Plt Count (130-400) K/uL MPV (7.4-10.4) fL Immature Gran % (Auto) % Neut % (Auto) % Lymph % (Auto) % [place] % (Auto) % Eos % (Auto) % Baso % (Auto) % Immature Gran # (Auto) (0.00-0.02) K/uL Neut # (Auto) (1.4-6.5) K/uL Lymph # (Auto) (1.2-3.4) K/uL [place] # (Auto) (0.11-0.59) K/uL Eos # (Auto) (0-0.5) K/uL Baso # (Auto) (0-0.2) K/uL Sodium (136-145) mmol/L Potassium (3.5-5.1) mmol/L Chloride (98-107) mmol/L Carbon Dioxide (21-32) mmol/L Anion Gap (3-11) BUN (7-18) mg/dl Creatinine (0.6-1.4) mg/dl Est Cr Clr Drug Dosing ml/min Est GFR ( Amer) Est GFR (Non-Af Amer) BUN/Creatinine Ratio (10-20) Glucose (70-99) mg/dl POC Glucose 213 H 76 69 L* (70-99) Calcium (8.5-10.1) mg/dl Total Bilirubin (0.2-1) mg/dl AST (15-37) U/L ALT (12-78) U/L Alkaline Phosphatase (45-117) U/L Total Protein (6.4-8.2) gm/dl Albumin (3.4-5.0) gm/dl Globulin (2.5-4.0) gm/dl Albumin/Globulin Ratio (0.9-2) 05/27/19 05/27/19 05/26/19 Range/Units 06:38 06:38 20:22 WBC 9.50 (4.8-10.8) K/uL RBC 3.79 L (4.7-6.1) M/uL Hgb 11.9 L (14.0-18.0) g/dL Hct 36.0 L (42-52) % MCV 95.0 (80-100) fL MCH 31.4 (25-34) pg MCHC 33.1 (32-36) g/dL RDW Std Deviation 54.1 H (36.4-46.3) fL RDW Coeff of James 15.7 H (11.5-14.5) % Plt Count 143 (130-400) K/uL MPV 9.7 (7.4-10.4) fL Immature Gran % (Auto) 2.0 % Neut % (Auto) 66.6 % Lymph % (Auto) 20.6 % [place] % (Auto) 10.3 % Eos % (Auto) 0.4 % Baso % (Auto) 0.1 % Immature Gran # (Auto) 0.19 H (0.00-0.02) K/uL Neut # (Auto) 6.32 (1.4-6.5) K/uL Lymph # (Auto) 1.96 (1.2-3.4) K/uL [place] # (Auto) 0.98 H (0.11-0.59) K/uL Eos # (Auto) 0.04 (0-0.5) K/uL Baso # (Auto) 0.01 (0-0.2) K/uL Sodium 140 (136-145) mmol/L Potassium 2.7 L (3.5-5.1) mmol/L Chloride 98 (98-107) mmol/L Carbon Dioxide 35 H (21-32) mmol/L Anion Gap 7.0 (3-11) BUN 38 H (7-18) mg/dl Creatinine 1.20 (0.6-1.4) mg/dl Est Cr Clr Drug Dosing 67.0 ml/min Est GFR ( Amer) 69.6 Est GFR (Non-Af Amer) 60.1 BUN/Creatinine Ratio 32.0 H (10-20) Glucose 73 (70-99) mg/dl POC Glucose 164 H (70-99) Calcium 10.0 (8.5-10.1) mg/dl Total Bilirubin 0.5 (0.2-1) mg/dl AST 22 (15-37) U/L ALT 43 (12-78) U/L Alkaline Phosphatase 67 (45-117) U/L Total Protein 6.1 L (6.4-8.2) gm/dl Albumin 2.9 L (3.4-5.0) gm/dl Globulin 3.2 (2.5-4.0) gm/dl Albumin/Globulin Ratio 0.9 (0.9-2) 05/26/19 Range/Units 16:31 WBC (4.8-10.8) K/uL RBC (4.7-6.1) M/uL Hgb (14.0-18.0) g/dL Hct (42-52) % MCV (80-100) fL MCH (25-34) pg MCHC (32-36) g/dL RDW Std Deviation (36.4-46.3) fL RDW Coeff of James (11.5-14.5) % Plt Count (130-400) K/uL MPV (7.4-10.4) fL Immature Gran % (Auto) % Neut % (Auto) % Lymph % (Auto) % [place] % (Auto) % Eos % (Auto) % Baso % (Auto) % Immature Gran # (Auto) (0.00-0.02) K/uL Neut # (Auto) (1.4-6.5) K/uL Lymph # (Auto) (1.2-3.4) K/uL [place] # (Auto) (0.11-0.59) K/uL Eos # (Auto) (0-0.5) K/uL Baso # (Auto) (0-0.2) K/uL Sodium (136-145) mmol/L Potassium (3.5-5.1) mmol/L Chloride (98-107) mmol/L Carbon Dioxide (21-32) mmol/L Anion Gap (3-11) BUN (7-18) mg/dl Creatinine (0.6-1.4) mg/dl Est Cr Clr Drug Dosing ml/min Est GFR ( Amer) Est GFR (Non-Af Amer) BUN/Creatinine Ratio (10-20) Glucose (70-99) mg/dl POC Glucose 84 (70-99) Calcium (8.5-10.1) mg/dl Total Bilirubin (0.2-1) mg/dl AST (15-37) U/L ALT (12-78) U/L Alkaline Phosphatase (45-117) U/L Total Protein (6.4-8.2) gm/dl Albumin (3.4-5.0) gm/dl Globulin (2.5-4.0) gm/dl Albumin/Globulin Ratio (0.9-2) PG Care Time/CCT Total # of Minutes Spent Total Time Spent with Patient: Total time spent is greater than 50% in coordination of care (as documented) at patient's floor/unit and/or counseling patient: (1) Bladder cancer Bladder location: unspecified site Qualified Code(s): C67.9 - Malignant neoplasm of bladder, unspecified (2) Hyperlipidemia Hyperlipidemia type: mixed hyperlipidemia Qualified Code(s): E78.2 - Mixed hyperlipidemia (3) COPD (chronic obstructive pulmonary disease) COPD type: unspecified COPD Qualified Code(s): J44.9 - Chronic obstructive pulmonary disease, unspecified (4) Hypertension Hypertension type: essential hypertension Qualified Code(s): I10 - Essential (primary) hypertension
[2019-05-27] MEDS: ATORVASTATIN 40 MG TAB PO SCH (21:10)
[2019-05-27] MEDS: TERAZOSIN HCL 1 MG CAP PO SCH (21:10)
[2019-05-27] MEDS: AMLODIPINE BESYLATE 5 MG TAB PO SCH (21:11)
[2019-05-27] MEDS: ENOXAPARIN INJ 40 MG/0.4 ML SYR SQ SCH (21:11)
[2019-05-27] MEDS: guaiFENesin 600 MG TABCR PO SCH (21:12)
[2019-05-28] MEDS: METHADONE HCL 10 MG TAB PO SCH ×5 (00:14→23:01)
[2019-05-28] MEDS: CHOLECALCIFEROL 1,000 UNITS TAB PO SCH (07:33)
[2019-05-28] MEDS: DOCUSATE SODIUM 100 MG CAP PO SCH ×2 (07:33→20:44)
[2019-05-28] MEDS: guaiFENesin 600 MG TABCR PO SCH ×2 (07:33→20:44)
[2019-05-28] MEDS: SENNA 8.6 MG TAB PO SCH ×2 (07:34→20:48)
[2019-05-28] MEDS: POTASSIUM CHLORIDE 20 MEQ TABCR PO SCH (07:34)
[2019-05-28] MEDS: FINASTERIDE 5 MG TAB PO SCH (07:34)
[2019-05-28] MEDS: predniSONE 10 MG TABLET PO SCH (07:34)
[2019-05-28] MEDS: CYANOCOBALAMIN (VITAMIN B-12) 100 MCG TABLET PO SCH (07:34)
[2019-05-28] MEDS: FUROSEMIDE 40 MG TAB PO SCH (07:34)
[2019-05-28] MEDS: MAGNESIUM OXIDE 400 MG TAB PO SCH ×2 (07:34→20:46)
[2019-05-28] MEDS: PYRIDOXINE HCL 50 MG TAB PO SCH (07:35)
[2019-05-28] MEDS: PANTOprazole 40 MG TAB PO SCH (07:35)
[2019-05-28] MEDS: CETIRIZINE HCL 10 MG TABLET PO SCH (07:35)
[2019-05-28] MEDS: BUDESONIDE/FORMOTEROL FUMARATE 160/4.5 60 PUFFS/INHALER INH SCH ×2 (07:36→20:48)
[2019-05-28] MEDS: TIOTROPIUM BROMIDE 5 PUFF/90 MCG INH INH SCH (07:36)
[2019-05-28] MEDS: INSULIN ASPART 100 UNITS/ML 3 ML PEN SC SCH ×4 (07:55→20:49)
[2019-05-28] MEDS: INSULIN GLARGINE SOLOSTAR 100 UNITS/ML 3 ML PEN SC SCH (07:55)
[2019-05-28] MEDS: INSULIN HUMAN NPH SC SCH (07:55)
[2019-05-28 08:47] LABS: BUN Creatinine Ratio 28.1 (10-20); Calcium 10.5 mg/dl (8.5-10.1); Creatinine Clr Calc Pharmacy 57.8 ml/min; Est GFR (African American) 58.3; Est GFR (Non-African American) 50.3; Magnesium 2.1 mg/dl (1.8-2.4); Potassium 2.8 mmol/L (3.5-5.1)
[2019-05-28] MEDS ORDERED: POTASSIUM CHLORIDE 20 MEQ TABCR PO STA (09:08)
--- NOTE | 2019-05-28 10:55 | Pharmacy Report ---
Pharmacy Glycemic Short Note 2 - Date of Service May 28, 2019 - Glycemic Short BSG Results (Last 24 hours): 05/27/19 05/27/19 05/28/19 11:38 20:47 07:31 Glucose POC Glucose 213 H 147 H 88 05/28/19 07:40 Glucose 83 POC Glucose OUTPATIENT ANTIDIABETIC REGIMEN: * Metformin 500mg PO QAM ASSESSMENT: 05/28 * Patient is currently receiving an average of 64 units of insulin per day * 40 units of basal insulin (Lantus + NPH to cover steroids) * 24 units of prandial/correctional insulin * BSGs ranging 83-213 over the past 24hrs * Risk factors for insulin resistance are constant over the past 24hrs * Steroid dosing unchanged - prednisone 30 mg daily * Anticipating insulin regimen will need decreased for the next 24hrs d/t : * AM Fasting BSG = 83 therefore Basal insulin needs decreased 05/27 * Type 2 diabetic, Stage IV lung cancer, palliative care consult * Patient is currently receiving an average of 76 units of insulin per day * 45 units of basal insulin * 31 units of prandial/correctional insulin * BSGs ranging 69-164 over the past 24hrs * Risk factors for insulin resistance are constant over the past 24hrs * Steroid dosing unchanged, 30mg PO daily Prednisone * Anticipating insulin regimen will need decreased for the next 24hrs d/t : * AM Fasting BSG = 73mg/dl, as low as 69m/dl, despite reductions yesterday, therefore Basal insulin needs decreased further, will only decrease Lantus, as NPH is covering steroid effects, and loosen CF and CR further to prevent hypoglycemia, especially with patient's prognosis and goals. PLAN FOR INPATIENT GLYCEMIC CONTROL: * Hold outpatient oral diabetes medications * Basal insulin * DECREASE Lantus to 8 units SQ daily * Continue NPH 30 units SQ daily with Prednisone 30mg daily * Bolus insulin - no change * NovoLog per scale ACHS or Q6hrs while NPO * Goal Range: Low 110 mg/dL - High 140 mg/dL * Correction Factor: 25 mg/dL/unit * Nutritional / Prandial insulin per carb ratio of 1 unit per 7 grams CHO consumed PLAN FOR DISCHARGE: * A1c 8.0%, somewhat unreliable d/t steroid use, acceptable for patient's prognosis and goals, continue Metformin at home as prescribed. * If patient goes home on prednisone taper, recommend giving NPH given with each prednisone dose as follows: * Prednisone 30mg - give NPH 30 units * Prednisone 27.5mg - give NPH 27 units * Prednisone 25mg - give NPH 25 units * Prednisone 20mg - give NPH 20 units * Prednisone 17.5mg - give NPH 17 units * Prednisone 15mg - give NPH 15 units * Prednisone 12.5mg - give NPH 12 units * Prednisone 10mg - give NPH 10 units * Prednisone 7.5mg - give NPH 7 units * Prednisone 5mg - give NPH 5 units
--- NOTE | 2019-05-28 11:36 | Hospitalist Progress Note ---
Date of Service May 28, 2019 Assessment & Plan (1) Acute and chronic respiratory failure: - Acute on chronic resp failure, likely related to CHF exacerbation vs. COPD. - Currently requiring 4L via NC --on home requirements but has increased SOB with exertion. - CXR with severe emphysema and atelectasis; consider repeat imaging if no improvement in symptoms. - Diuresis as noted below. - Continue home inhalers along with scheduled Duonebs q6hr. - Pt. has BiPAP machine at home but has not started using it yet; he has been refusing our BiPAP mask. He will contact his sister to ask if she can bring in home machine. Recommend BiPAP usage qhs. (2) COPD (chronic obstructive pulmonary disease): - Has been steroid dependent for many months, cannot taper below 30 mg daily. - Follows with Dr. Dodge. - Continue Pred 30 mg daily, Symbicort BID, Spiriva daily with Duonebs q6hr scheduled. - CXR neg on admission; consider addition of abx coverage for persistent sinus congestion to treat bacterial sinusitis. 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 - Patient has previously refused palliative xrt. 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 - Palliative consulted to discuss goals of care; consider hospice referral via [facility] health/[facility]. (4) Non-small cell carcinoma of left lung: - As discussed above. (5) Acute on chronic diastolic CHF (congestive heart failure): - Most recent echo Mar 2019 showed preserved EF, no significant valvular disease. - Doppler of RLE negative for DVT. - May have fluid retention 2/2 chronic prednisone usage. - Monitor net I/Os and daily weights -- weight increased by ~10 kg compared to Jan 2019. Wght improved by ~3.5 kg over last 24 hours. - Increased Lasix to 40 mg PO BID but Cr is now trending up; will decrease diuretics back to once daily dosing. Also on Metolazone twice weekly. - No indication for ACEI/ARB or beta dean therapy. (6) Nasal congestion: - Possibly related to viral URI. - Mucinex 1200 mg BID; saline nasal spray q4hr. - Consider addition of abx coverage if no improvement for bacterial sinusitis. (7) Hypertension: - Continue Amlodipine 5 mg, Lasix daily and Metolazone 5 mg twice weekly. 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 - Holding home Metformin. - Pharmacy following for steroid induced hyperglycemia. (9) Hyperlipidemia: - Continue statin agent. (10) Bladder cancer: - Follows with Dr. Anand. (11) Chronic pain: - Continue Methadone as prescribed. (12) Hypokalemia: - In setting of diuretic therapy. - K level 2.8; received 40 mEq this AM; will give additional 80 mEq throughout the day due to persistently low levels. - Also receiving mag oxide 400 mg BID. (13) Hypercalcemia: - Ca level 10.5 - may be related to dehydration vs. underlying malignancy. - Will decrease diuretics to once daily dosing. Hold IV fluids to avoid volume overload. - Monitor Ca levels daily. (14) Morbid obesity with BMI of 40.0-44.9, adult: - BMI 40.7. - Encourage weight loss and exercise. (15) DVT prophylaxis: - Lovenox daily. Dispo: Med/surg; discharge pending improvement in acute resp failure. Patient is considering hospice. Subjective Pt. remains on 4L via NC -- he wears the NC in his mouth most of the time due to nasal congestion. Pt. reports he commonly wears oxygen like this at home as well. Has been refusing our BiPAP mask at night, requested that his family bring mask in from home to use. Has ongoing SOB with exertion and nasal congestion. Denies chest pain, constipation, abd pain, N/V, urinary retention. Pt. reports he would "just like to go home and stop coming to the hospital" - we re- discussed hospice placement but it does not appear that patient is ready at this time. Review of Systems Review of Systems: All systems reviewed & are unremarkable except as noted in HPI & below Constitutional: + fatigue and + weakness; no fever, no chills and no anorexia Ear, Nose, Mouth, Throat: + nasal congestion Respiratory: + dyspnea on exertion; no cough, no dyspnea and no wheezing Cardiovascular: no chest pain, no palpitations and no edema Gastrointestinal: no abdominal pain, no nausea and no constipation Genitourinary: no difficulty urinating Musculoskeletal: no back pain and no joint pain Integumentary: no non-healing lesions Physical Exam Physical Exam: General: Chronically ill appearing male. HEENT: NC/AT; PERRLA with EOMI; [place] conjunctiva, MMM. No erythema of posterior pharynx Neck: Supple and nontender Cardiac: RRR Lungs: NC placed in mouth; CTA throughout. Abdomen: Abd is slightly distended; Bowel normoactive X 4; Nontender to palpation Extremities: Warm. +1 bilat LE edema. Neuro: No focal weakness Skin: No rash Results & Data Vital Signs (Past 12 Hours) Vital Signs Temp Pulse Resp BP BP Pulse Ox 05/28/19 09:01 85 137/77 05/28/19 07:20 36.7 C 51 L 18 162/83 H 95 Laboratory Results 05/28/19 05/28/19 05/27/19 Range/Units 07:40 07:31 20:47 Sodium 139 (136-145) mmol/L Potassium 2.8 L (3.5-5.1) mmol/L Chloride 95 L (98-107) mmol/L Carbon Dioxide 39 H (21-32) mmol/L Anion Gap 5.0 (3-11) BUN 39 H (7-18) mg/dl Creatinine 1.39 (0.6-1.4) mg/dl Est Cr Clr Drug Dosing 57.8 ml/min Est GFR ( Amer) 58.3 Est GFR (Non-Af Amer) 50.3 BUN/Creatinine Ratio 28.1 H (10-20) Glucose 83 (70-99) mg/dl POC Glucose 88 147 H (70-99) Calcium 10.5 H (8.5-10.1) mg/dl Magnesium 2.1 (1.8-2.4) mg/dl 05/27/19 Range/Units 11:38 Sodium (136-145) mmol/L Potassium (3.5-5.1) mmol/L Chloride (98-107) mmol/L Carbon Dioxide (21-32) mmol/L Anion Gap (3-11) BUN (7-18) mg/dl Creatinine (0.6-1.4) mg/dl Est Cr Clr Drug Dosing ml/min Est GFR ( Amer) Est GFR (Non-Af Amer) BUN/Creatinine Ratio (10-20) Glucose (70-99) mg/dl POC Glucose 213 H (70-99) Calcium (8.5-10.1) mg/dl Magnesium (1.8-2.4) mg/dl PG Care Time/CCT Total # of Minutes Spent Total Time Spent with Patient: Total time spent is greater than 50% in coordination of care (as documented) at patient's floor/unit and/or counseling patient: (1) Bladder cancer Bladder location: unspecified site Qualified Code(s): C67.9 - Malignant neoplasm of bladder, unspecified (2) Hyperlipidemia Hyperlipidemia type: mixed hyperlipidemia Qualified Code(s): E78.2 - Mixed hyperlipidemia (3) COPD (chronic obstructive pulmonary disease) COPD type: unspecified COPD Qualified Code(s): J44.9 - Chronic obstructive pulmonary disease, unspecified (4) Hypertension Hypertension type: essential hypertension Qualified Code(s): I10 - Essential (primary) hypertension
[2019-05-28] MEDS: SODIUM CHLORIDE 0.65% NA SOLN 45 ML (OCEAN) SCH ×4 (13:05→23:01)
[2019-05-28] MEDS: ALBUT/IPRATROP 3MG/0.5MG NEB 3 ML VIAL NEB SCH ×2 (13:09→19:43)
[2019-05-28] MEDS ORDERED: POTASSIUM CHLORIDE 20 MEQ TABCR PO SCH (17:00)
[2019-05-28] MEDS: ATORVASTATIN 40 MG TAB PO SCH (20:43)
[2019-05-28] MEDS: TERAZOSIN HCL 1 MG CAP PO SCH (20:44)
[2019-05-28] MEDS: ENOXAPARIN INJ 40 MG/0.4 ML SYR SQ SCH (20:46)
[2019-05-28] MEDS: AMLODIPINE BESYLATE 5 MG TAB PO SCH (20:47)
[2019-05-29] MEDS: SODIUM CHLORIDE 0.65% NA SOLN 45 ML (OCEAN) SCH ×6 (03:34→23:06)
[2019-05-29] MEDS: METHADONE HCL 10 MG TAB PO SCH ×4 (05:01→23:06)
[2019-05-29 07:13] LABS: BUN Creatinine Ratio 29.1 (10-20); Creatinine Clr Calc Pharmacy 72.5 ml/min; Est GFR (African American) 74.8; Est GFR (Non-African American) 64.6; Potassium 3.2 mmol/L (3.5-5.1)
[2019-05-29] MEDS: ALBUT/IPRATROP 3MG/0.5MG NEB 3 ML VIAL NEB SCH ×3 (07:14→19:17)
[2019-05-29 07:15] LABS: Albumin Globulin Ratio 0.9 (0.9-2); Bilirubin,Total 0.5 mg/dl (0.2-1); Globulin 3.5 gm/dl (2.5-4.0); Total Protein 6.5 gm/dl (6.4-8.2)
[2019-05-29] MEDS ORDERED: POTASSIUM CHLORIDE 20 MEQ TABCR PO STA (08:01)
[2019-05-29] MEDS: guaiFENesin 600 MG TABCR PO SCH ×2 (08:45→20:23)
[2019-05-29] MEDS: predniSONE 10 MG TABLET PO SCH (08:45)
[2019-05-29] MEDS: MAGNESIUM OXIDE 400 MG TAB PO SCH ×2 (08:46→20:25)
[2019-05-29] MEDS: FINASTERIDE 5 MG TAB PO SCH (08:46)
[2019-05-29] MEDS: CETIRIZINE HCL 10 MG TABLET PO SCH (08:46)
[2019-05-29] MEDS: SENNA 8.6 MG TAB PO SCH ×2 (08:46→20:26)
[2019-05-29] MEDS: PYRIDOXINE HCL 50 MG TAB PO SCH (08:46)
[2019-05-29] MEDS: CYANOCOBALAMIN (VITAMIN B-12) 100 MCG TABLET PO SCH (08:46)
[2019-05-29] MEDS: CHOLECALCIFEROL 1,000 UNITS TAB PO SCH (08:47)
[2019-05-29] MEDS: FUROSEMIDE 40 MG TAB PO SCH (08:47)
[2019-05-29] MEDS: PANTOprazole 40 MG TAB PO SCH (08:47)
[2019-05-29] MEDS: TIOTROPIUM BROMIDE 5 PUFF/90 MCG INH INH SCH (08:47)
[2019-05-29] MEDS: DOCUSATE SODIUM 100 MG CAP PO SCH ×2 (08:47→20:22)
[2019-05-29] MEDS: POTASSIUM CHLORIDE 20 MEQ TABCR PO SCH (08:48)
[2019-05-29] MEDS: INSULIN GLARGINE SOLOSTAR 100 UNITS/ML 3 ML PEN SC SCH (08:48)
[2019-05-29] MEDS: INSULIN HUMAN NPH SC SCH (08:49)
[2019-05-29] MEDS: INSULIN ASPART 100 UNITS/ML 3 ML PEN SC SCH ×4 (08:51→20:29)
[2019-05-29] MEDS: BUDESONIDE/FORMOTEROL FUMARATE 160/4.5 60 PUFFS/INHALER INH SCH ×2 (08:52→20:26)
[2019-05-29] MEDS: POLYETHYLENE (MIRALAX) 17 GM PACK PO SCH ×2 (09:12)
--- NOTE | 2019-05-29 10:28 | XRay Report ---
XR KUB/Abdomen 6 views CLINICAL HISTORY: Abd distention, rule out constipation COMPARISON STUDY: 03/30/2019 FINDINGS: There is no pathologic bowel dilatation. There is a mild to moderate amount of colonic stoo l. IMPRESSION: Mild to moderate amount of colonic stool. No evidence of pathologic bowel dilatation ACT 112: Negative or not required by law. Electronically signed by: Shen Orona M.D. 05/29/2019 10:27 AM
--- NOTE | 2019-05-29 10:58 | Hospitalist Progress Note ---
Date of Service May 29, 2019 Assessment & Plan (1) Acute and chronic respiratory failure: - Acute on chronic resp failure, likely related to CHF exacerbation vs. COPD. - Currently requiring 4L via NC --on home requirements, close to baseline resp status. - CXR with severe emphysema and atelectasis.. - Diuresis as noted below. - Continue home inhalers along with scheduled Duonebs q6hr. - Pt. has BiPAP machine at home but has not started using it yet; he has been refusing our BiPAP mask. His nephew will bring in his home mask today, plan to use BiPAP qhs. (2) COPD (chronic obstructive pulmonary disease): - Has been steroid dependent for many months, cannot taper below 30 mg daily. - Follows with Dr. Dodge. - Continue Pred 30 mg daily, Symbicort BID, Spiriva daily with Duonebs q6hr scheduled. - CXR neg on admission; consider abx coverage for persistent sinus congestion to treat bacterial sinusitis. 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 - Patient has previously refused palliative xrt. 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 - Palliative consulted; will arrange home health at discharge but continue to address transition to hospice to avoid recurrent hospital re-admissions. (4) Right-sided back pain: - C/o right sided back pain -- may be related to muscle tension from hospital beds vs. thoracic metastatic lesion. - Known right sided paraspinal mass at level of T7 - had increased in size on CT chest in Mar 2019 but has not been re-imaged recently. - Recent abd/pelvis CT with no large masses noted in abdomen that could be related to pain. (5) Non-small cell carcinoma of left lung: - As discussed above. (6) Acute on chronic diastolic CHF (congestive heart failure): - Most recent echo Mar 2019 showed preserved EF, no significant valvular disease. - Doppler of RLE negative for DVT. - May have fluid retention 2/2 chronic prednisone usage. Currently appears euvolemic following additional diuresis. - Monitor net I/Os and daily weights -- weight has slightly improved during this admission. - Lasix 40 mg PO daily (cannot tolerate BID dosing per renal function). Also on Metolazone twice weekly. - No indication for ACEI/ARB or beta dean therapy. (7) Nasal congestion: - Possibly related to viral URI. - Mucinex 1200 mg BID; saline nasal spray q4hr. - Consider abx coverage if no improvement for bacterial sinusitis. (8) Hypertension: - Continue Amlodipine 5 mg, Lasix daily and Metolazone 5 mg twice weekly. (9) DM w/o complication type II: - A1C is 8.0. - Holding home Metformin. - Pharmacy following for steroid induced hyperglycemia. (10) Hyperlipidemia: - Continue statin agent. (11) Bladder cancer: - Follows with Dr. Anand. (12) Chronic pain: - Continue Methadone as prescribed. (13) Hypokalemia: - In setting of diuretic therapy. - K level 3.2; received 40 mEq this AM; will give additional 40 mEq today due to persistently low levels. - Also receiving mag oxide 400 mg BID. (14) Hypercalcemia: - Ca level improved to WNL - related to dehydration vs. underlying malignancy. - Monitor Ca levels daily. (15) Constipation: - KUB showed mild to moderate stool burden; c/o abd bloating. - Senokot BID with Miralax daily scheduled. (16) Morbid obesity with BMI of 40.0-44.9, adult: - BMI 40.7. - Encourage weight loss and exercise. (17) DVT prophylaxis: - Lovenox daily. Dispo: Discharge likely on Tuesday 05/30 with home health (possible transition to hospice in the future). Respiratory status is currently stable. Subjective Pt is stable on 4L via NC. Reports nasal congestion improving, has NC in his nose this morning. Has chronic SOB with exertion but is reaching his baseline. C/o abd distention; did not have a BM in 48 hours. Also has right sided back pain. Review of Systems Review of Systems: All systems reviewed & are unremarkable except as noted in HPI & below Constitutional: + fatigue and + weakness; no fever, no chills and no anorexia Respiratory: + dyspnea on exertion; no cough, no dyspnea and no wheezing Cardiovascular: no chest pain, no palpitations and no edema Gastrointestinal: + bloating and + constipation; no abdominal pain, no nausea and no vomiting Genitourinary: no difficulty urinating Musculoskeletal: + back pain (Right back pain); no joint pain Integumentary: no non-healing lesions Physical Exam Physical Exam: General: Chronically ill appearing male. HEENT: NC/AT; PERRLA with EOMI; [place] conjunctiva, MMM. No erythema of posterior pharynx Neck: Supple and nontender Cardiac: RRR Lungs: on 4L via NC; scattered wheezing noted throughout. Abdomen: Abd with moderate distention; Bowel normoactive X 4; Nontender to palpation Extremities: Warm. No LE edema noted. Neuro: No focal weakness Skin: No rash Results & Data Vital Signs (Past 12 Hours) Vital Signs Temp Pulse Resp BP BP Pulse Ox 05/29/19 07:14 71 16 98 05/29/19 07:00 36.3 C L 68 18 126/75 91 05/29/19 04:30 36.4 C L 82 20 126/71 97 05/28/19 23:00 36.3 C L 95 H 20 135/64 90 Laboratory Results 05/29/19 05/29/19 05/28/19 Range/Units 07:21 06:06 20:23 Sodium 138 (136-145) mmol/L Potassium 3.2 L (3.5-5.1) mmol/L Chloride 98 (98-107) mmol/L Carbon Dioxide 35 H (21-32) mmol/L Anion Gap 5.0 (3-11) BUN 33 H (7-18) mg/dl Creatinine 1.13 (0.6-1.4) mg/dl Est Cr Clr Drug Dosing 72.5 ml/min Est GFR ( Amer) 74.8 Est GFR (Non-Af Amer) 64.6 BUN/Creatinine Ratio 29.1 H (10-20) Glucose 112 H (70-99) mg/dl POC Glucose 109 H 92 (70-99) Calcium 10.0 (8.5-10.1) mg/dl Total Bilirubin 0.5 (0.2-1) mg/dl AST 22 (15-37) U/L ALT 48 (12-78) U/L Alkaline Phosphatase 70 (45-117) U/L Total Protein 6.5 (6.4-8.2) gm/dl Albumin 3.0 L (3.4-5.0) gm/dl Globulin 3.5 (2.5-4.0) gm/dl Albumin/Globulin Ratio 0.9 (0.9-2) 01/11/20 01/11/20 Range/Units 16:17 11:35 Sodium (136-145) mmol/L Potassium (3.5-5.1) mmol/L Chloride (98-107) mmol/L Carbon Dioxide (21-32) mmol/L Anion Gap (3-11) BUN (7-18) mg/dl Creatinine (0.6-1.4) mg/dl Est Cr Clr Drug Dosing ml/min Est GFR ( Amer) Est GFR (Non-Af Amer) BUN/Creatinine Ratio (10-20) Glucose (70-99) mg/dl POC Glucose 205 H 188 H (70-99) Calcium (8.5-10.1) mg/dl Total Bilirubin (0.2-1) mg/dl AST (15-37) U/L ALT (12-78) U/L Alkaline Phosphatase (45-117) U/L Total Protein (6.4-8.2) gm/dl Albumin (3.4-5.0) gm/dl Globulin (2.5-4.0) gm/dl Albumin/Globulin Ratio (0.9-2) PG Care Time/CCT Total # of Minutes Spent Total Time Spent with Patient: Total time spent is greater than 50% in coordination of care (as documented) at patient's floor/unit and/or counseling patient: (1) Bladder cancer Bladder location: unspecified site Qualified Code(s): C67.9 - Malignant neoplasm of bladder, unspecified (2) Hyperlipidemia Hyperlipidemia type: mixed hyperlipidemia Qualified Code(s): E78.2 - Mixed hyperlipidemia (3) COPD (chronic obstructive pulmonary disease) COPD type: unspecified COPD Qualified Code(s): J44.9 - Chronic obstructive pulmonary disease, unspecified (4) Hypertension Hypertension type: essential hypertension Qualified Code(s): I10 - Essential (primary) hypertension
--- NOTE | 2019-05-29 14:05 | Pharmacy Report ---
Pharmacy Glycemic Short Note 2 - Date of Service May 29, 2019 - Glycemic Short BSG Results (Last 24 hours): 05/28/19 05/28/19 05/29/19 16:17 20:23 06:06 Glucose 112 H POC Glucose 205 H 92 05/29/19 05/29/19 07:21 11:52 Glucose POC Glucose 109 H 218 H OUTPATIENT ANTIDIABETIC REGIMEN: * Metformin 500mg PO QAM ASSESSMENT: 05/29 * Patient is currently receiving an average of 70 units of insulin per day * 40 units of basal insulin (Lantus + NPH to cover steroids) * 30 units of prandial/correctional insulin * BSGs ranging 92-218 over the past 24hrs * Risk factors for insulin resistance are constant over the past 24hrs * Steroid dosing unchanged - prednisone 30 mg daily * Fasting BSG well controlled with adjustment to Lantus * Anticipating insulin regimen will need increased for the next 24hrs d/t : * Pre-lunch tends to be the highest, likely from AM dose of NPH not quite peaking by this time * Will tighten CR for breakfast only 05/28 * Patient is currently receiving an average of 64 units of insulin per day * 40 units of basal insulin (Lantus + NPH to cover steroids) * 24 units of prandial/correctional insulin * BSGs ranging 83-213 over the past 24hrs * Risk factors for insulin resistance are constant over the past 24hrs * Steroid dosing unchanged - prednisone 30 mg daily * Anticipating insulin regimen will need decreased for the next 24hrs d/t : * AM Fasting BSG = 83 therefore Basal insulin needs decreased 05/27 * Type 2 diabetic, Stage IV lung cancer, palliative care consult * Patient is currently receiving an average of 76 units of insulin per day * 45 units of basal insulin * 31 units of prandial/correctional insulin * BSGs ranging 69-164 over the past 24hrs * Risk factors for insulin resistance are constant over the past 24hrs * Steroid dosing unchanged, 30mg PO daily Prednisone * Anticipating insulin regimen will need decreased for the next 24hrs d/t : * AM Fasting BSG = 73mg/dl, as low as 69m/dl, despite reductions yesterday, therefore Basal insulin needs decreased further, will only decrease Lantus, as NPH is covering steroid effects, and loosen CF and CR further to prevent hypoglycemia, especially with patient's prognosis and goals. PLAN FOR INPATIENT GLYCEMIC CONTROL: * Hold outpatient oral diabetes medications * Basal insulin - no change * Lantus 8 units SQ daily * NPH 30 units SQ daily with Prednisone 30mg daily * Bolus insulin - tighten CR with breakfast only * NovoLog per scale ACHS or Q6hrs while NPO * Goal Range: Low 110 mg/dL - High 140 mg/dL * Correction Factor: 25 mg/dL/unit * Nutritional / Prandial insulin per carb ratio of 1 unit per 7 grams CHO consumed (1 unit per 6 gm CHO with breakfast) PLAN FOR DISCHARGE: * A1c 8.0%, somewhat unreliable d/t steroid use, acceptable for patient's prognosis and goals, continue Metformin at home as prescribed. * If patient goes home on prednisone taper, recommend giving NPH with each prednisone dose as follows: * Prednisone 30mg - give NPH 30 units * Prednisone 27.5mg - give NPH 27 units * Prednisone 25mg - give NPH 25 units * Prednisone 20mg - give NPH 20 units * Prednisone 17.5mg - give NPH 17 units * Prednisone 15mg - give NPH 15 units * Prednisone 12.5mg - give NPH 12 units * Prednisone 10mg - give NPH 10 units * Prednisone 7.5mg - give NPH 7 units * Prednisone 5mg - give NPH 5 units
[2019-05-29] MEDS: TERAZOSIN HCL 1 MG CAP PO SCH (20:22)
[2019-05-29] MEDS: AMLODIPINE BESYLATE 5 MG TAB PO SCH (20:22)
[2019-05-29] MEDS: ENOXAPARIN INJ 40 MG/0.4 ML SYR SQ SCH (20:24)
[2019-05-29] MEDS: ATORVASTATIN 40 MG TAB PO SCH (20:25)
[2019-05-30] MEDS: SODIUM CHLORIDE 0.65% NA SOLN 45 ML (OCEAN) SCH ×3 (04:35→11:05)
[2019-05-30] MEDS: METHADONE HCL 10 MG TAB PO SCH ×2 (05:52→11:05)
[2019-05-30 06:23] LABS: Hematocrit (blood only) 35.4 % (42-52); Hemoglobin 11.2 g/dL (14.0-18.0); Mean Corpuscular Hemoglobin 30.5 pg (25-34); Mean Corpuscular Hgb Conc 31.6 g/dL (32-36); Mean Corpuscular Volume 96.5 fL (80-100); Mean Platelet Volume 9.4 fL (7.4-10.4); Platelet Count 147 K/uL (130-400); RDW Coefficient of Variation 15.8 % (11.5-14.5); RDW Standard Deviation 55.5 fL (36.4-46.3); Red Blood Count 3.67 M/uL (4.7-6.1); White Blood Count 10.16 K/uL (4.8-10.8)
[2019-05-30 07:05] LABS: BUN Creatinine Ratio 29.3 (10-20); Creatinine Clr Calc Pharmacy 74.4 ml/min; Est GFR (African American) 77.3; Est GFR (Non-African American) 66.7
[2019-05-30] MEDS: ALBUT/IPRATROP 3MG/0.5MG NEB 3 ML VIAL NEB SCH (07:05)
[2019-05-30] MEDS ORDERED: INSULIN ASPART 100 UNITS/ML 3 ML PEN SC SCH ×2 (07:30→16:30)
[2019-05-30] MEDS: guaiFENesin 600 MG TABCR PO SCH (08:27)
[2019-05-30] MEDS: CHOLECALCIFEROL 1,000 UNITS TAB PO SCH (08:27)
[2019-05-30] MEDS: FINASTERIDE 5 MG TAB PO SCH (08:27)
[2019-05-30] MEDS: FUROSEMIDE 40 MG TAB PO SCH (08:27)
[2019-05-30] MEDS: SENNA 8.6 MG TAB PO SCH (08:27)
[2019-05-30] MEDS: CYANOCOBALAMIN (VITAMIN B-12) 100 MCG TABLET PO SCH (08:27)
[2019-05-30] MEDS: DOCUSATE SODIUM 100 MG CAP PO SCH (08:27)
[2019-05-30] MEDS: POTASSIUM CHLORIDE 20 MEQ TABCR PO SCH (08:28)
[2019-05-30] MEDS: predniSONE 10 MG TABLET PO SCH (08:28)
[2019-05-30] MEDS: CETIRIZINE HCL 10 MG TABLET PO SCH (08:28)
[2019-05-30] MEDS: PYRIDOXINE HCL 50 MG TAB PO SCH (08:28)
[2019-05-30] MEDS: TIOTROPIUM BROMIDE 5 PUFF/90 MCG INH INH SCH (08:29)
[2019-05-30] MEDS: PANTOprazole 40 MG TAB PO SCH (08:29)
[2019-05-30] MEDS: POLYETHYLENE (MIRALAX) 17 GM PACK PO SCH (08:29)
[2019-05-30] MEDS: MAGNESIUM OXIDE 400 MG TAB PO SCH (08:29)
[2019-05-30] MEDS: BUDESONIDE/FORMOTEROL FUMARATE 160/4.5 60 PUFFS/INHALER INH SCH (08:30)
[2019-05-30] MEDS: INSULIN HUMAN NPH SC SCH (08:35)
[2019-05-30] MEDS: INSULIN GLARGINE SOLOSTAR 100 UNITS/ML 3 ML PEN SC SCH (08:35)
--- NOTE | 2019-05-30 10:38 | Pharmacy Report ---
Pharmacy Glycemic Short Note 2 - Date of Service May 30, 2019 - Glycemic Short BSG Results (Last 24 hours): 05/29/19 05/29/19 05/29/19 11:52 17:28 20:16 Glucose POC Glucose 218 H 126 H 186 H 05/30/19 05/30/19 05:41 07:39 Glucose 77 POC Glucose 88 OUTPATIENT ANTIDIABETIC REGIMEN: * Metformin 500mg PO QAM ASSESSMENT: Pt received 64 units of insulin yesterday, 05/29. BSGs have been well controlled while on PO glucocorticoids. Prednisone 30mg daily continues. Ergo, we will continue with standing insulin orders. Diet continues. PLAN FOR INPATIENT GLYCEMIC CONTROL: * Hold outpatient oral diabetes medications * Basal insulin * Lantus 8 units SQ daily + NPH 30u w/ prednisone 30mg daily * Bolus insulin - tighten CR with breakfast only * NovoLog per scale ACHS or Q6hrs while NPO * Goal Range: Low 110 mg/dL - High 140 mg/dL * Correction Factor: 25 mg/dL/unit * Nutritional / Prandial insulin per carb ratio of 1 unit per 7 grams CHO consumed (1 unit per 6 gm CHO with breakfast) PLAN FOR DISCHARGE: * A1c 8.0%, somewhat unreliable d/t steroid use, acceptable for patient's prognosis and goals, continue Metformin at home as prescribed. * If patient goes home on prednisone taper, recommend giving NPH with each prednisone dose as follows: * Prednisone 30mg - give NPH 30 units * Prednisone 27.5mg - give NPH 27 units * Prednisone 25mg - give NPH 25 units * Prednisone 20mg - give NPH 20 units * Prednisone 17.5mg - give NPH 17 units * Prednisone 15mg - give NPH 15 units * Prednisone 12.5mg - give NPH 12 units * Prednisone 10mg - give NPH 10 units * Prednisone 7.5mg - give NPH 7 units * Prednisone 5mg - give NPH 5 units
[2019-05-30] MEDS: INSULIN ASPART 100 UNITS/ML 3 ML PEN SC SCH (12:47)
--- NOTE | 2019-05-30 17:28 | Discharge Summary ---
Date of Service May 30, 2019 Admission HPI Per Admitting Provider Patient is a 74 years old male with past medical history of chronic respiratory failure, diabetes mellitus type 2 with complications, benign prostatic hypertrophy,, stage IV lung cancer currently not under treatment, patient with adverse reaction to Opdivo, chronic pain on methadone, hypertension, hyperlipidemia who presents to the emergency room with severe shortness of breath and acute respiratory failure. After being placed on BiPAP patient condition improved. Patient received in the emergency room Solu-Medrol 60 mg IV x1 magnesium 1 g IV x1 furosemide 40 mg IV x1 DuoNeb x1. Patient denies fever, chills, chest pain, abdominal pain, frequency, urgency, syncope or near syncope. Patient was recently admitted to the hospital for the similar issue in March. He lives by himself. 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 Patient is at the risk of developing paraplegia if patient does not go under radiation oncology treatment. Patient supposed to receive AVAPS unit with full facemask with his oxygen supplementation. Dr. Dodge who is his top waddy is hopeful that noninvasive positive pressure ventilation will assist him in the future. EKG reviewed shows normal sinus rhythm. There are nonspecific T wave abnormalities now evident in lateral leads. Labs are reviewed WBC is 10.13, hemoglobin 12.4, hematocrit 37.9, platelets 145. Sodium 135, potassium 3.2, chloride 93, BUN 27, creatinine 1.36, GFR 51.6, creatinine 1.36, glucose 169, calcium 9.5, AST 19, ALT 40, CK-MB 4, troponin 0 0.015, Albumin 3.1. Chest x-ray significant for severe emphysema, minor bibasilar opacities which favors atelectasis.An infectious process could appear similar but is considered less likely. CT abdomen pelvis no evidence of bowel obstruction. No evidence of free air. Severe pulmonary emphysema. Stable 47 x 17 mm lingular opacity. Stable opacity in the right medial lung base. No acute inflammatory changes. No evidence of diverticulitis. No evidence of acute appendicitis. Stable right-sided nephrolithiasis. Decision was made to admit patient to telemetry for respiratory acute respiratory failure. Admission Exam Per Admitting Provider Constitutional: WD/WN, vitals as above well developed and + morbidly obese Eyes: PERRL, conjunctivae normal, anicteric sclerae ENMT: external ear and nose normal, oropharynx normal Neck: trachea midline, no thyromegaly Respiratory: + respiratory distress, + labored breathing and + tripod positioning Auscultation: + diminished lung sounds, + crackles and + wheezes Cardiovascular: Heart Sounds: normal S1 and normal S2 Vessels: dorsalis pedis pulses present Musculoskeletal: no cyanosis or clubbing, extremities motor strength 5/5 Skin: no rashes, warm and dry Neurologic: patellar DTR's 2+ bilat, sensation intact Psychiatric: A+Ox3, euthymic affect Lymphatic: no cervical or axillary lymphadenopathy Principal Diagnosis Acute on chronic respiratory failure related to COPD and CHF Discharge Exam General: Chronically ill appearing male. HEENT: NC/AT; PERRLA with EOMI; [place] conjunctiva, MMM. No erythema of posterior pharynx Neck: Supple and nontender Cardiac: RRR Lungs: on 4L via NC; diminished in bilat lung bases Abdomen: Bowel normoactive X 4; Nontender to palpation Extremities: Warm. No LE edema noted. Neuro: No focal weakness Skin: No rash Discharge Data Allergies Allergy/AdvReac Type Severity Reaction Status Date / Time Bactrim Allergy Severe TONGUE Verified 12/02/17 08:11 SWELLS/FONG mupirocin Allergy Severe ANAPHYLAXIS Verified 05/24/19 15:05 sulfamethoxazole Allergy Severe TONGUE Verified 05/24/19 15:05 SWELLS/FONG trimethoprim Allergy Severe TONGUE Verified 05/24/19 15:05 SWELLS/FONG Iodinated Contrast Media Allergy Intermediate HIVES/ITCHI Verified 05/24/19 15:05 NG lisinopril Allergy Intermediate Tongue Verified 05/24/19 15:05 Swelling mustard Allergy Intermediate Hives, Verified 05/24/19 15:05 SOB, Itchy aspirin Allergy Mild ITCHY Verified 05/24/19 15:05 adhesive AdvReac Intermediate Tape - Rash Verified 05/24/19 15:05 Consultations 05/24/19 14:16 ED Decision to Admit Stat 05/24/19 21:52 Consult Case Management - Discharge Planning Routine Consult Pulmonology Routine 05/25/19 16:44 Consult Palliative Care Routine Ordered Studies 05/24/19 12:45 CT abd pelvis wo con Stat CXR 05/26/19 20:02 US venous doppler LE RT Routine Hospital Course (1) Acute and chronic respiratory failure: Acute on chronic resp failure, likely related to CHF exacerbation vs. COPD. Currently requiring 4L via NC --on home requirements, baseline resp status. CXR with severe emphysema and atelectasis.. Diuresis as noted below. Continued home inhalers along with scheduled Duonebs q6hr. Pt. has BiPAP machine at home but has not started using it yet; he has been refusing our BiPAP mask. Will use machine at home following discharge. (2) COPD (chronic obstructive pulmonary disease): Has been steroid dependent for many months, cannot taper below 30 mg daily. Follow[address] with Dr. Dodge. Continued Pred 30 mg daily, Symbicort BID, Spiriva daily with Duonebs q6hr scheduled. CXR neg on admission. 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 Patient has previously refused palliative xrt. 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 Palliative consulted; arranged home health at discharge but will need to continue to address transition to hospice to avoid recurrent hospital re- admissions. (4) Right-sided back pain: C/o right sided back pain -- may be related to muscle tension from hospital beds vs. thoracic metastatic lesion. Known right sided paraspinal mass at level of T7 - had increased in size on CT chest in Mar 2019 but has not been re-imaged recently. Recent abd/pelvis CT with no large masses noted in abdomen that could be related to pain. (5) Non-small cell carcinoma of left lung: As discussed above. (6) Acute on chronic diastolic CHF (congestive heart failure): Most recent echo Mar 2019 showed preserved EF, no significant valvular disease. Doppler of RLE negative for DVT. May have fluid retention 2/2 chronic prednisone usage. Appeared euvolemic at discharge. Lasix 40 mg PO daily (cannot tolerate BID dosing per renal function). Also on Metolazone twice weekly. No indication for ACEI/ARB or beta dean therapy. (7) Nasal congestion: Possibly related to viral URI. Mucinex 1200 mg BID; saline nasal spray q4hr. (8) Hypertension: Continued Amlodipine 5 mg, Lasix daily and Metolazone 5 mg twice weekly. (9) DM w/o complication type II: A1C is 8.0. Steroid induced hyperglycemia during this admission, will be chronic issue at home. Required NPH 30 units qAM along with SSI and Lantus coverage. Resume Metformin XR, increase to BID dosing. Will also start Glimepiride 2 mg PO daily with breakfast. Pt. was resistant to using insulin at home. Educated pt. to monitor blood glucose at least twice daily. F/u with PCP to discuss. (10) Hyperlipidemia: Continued statin agent. (11) Bladder cancer: Follows with Dr. Anand. (12) Chronic pain: Continued Methadone as prescribed. (13) Hypokalemia: In setting of diuretic therapy. Recommended to take 20 mEq daily at home. Also receiving mag oxide 400 mg BID. (14) Hypercalcemia: Ca level improved to WNL - related to dehydration vs. underlying malignancy. (15) Constipation: KUB showed mild to moderate stool burden; c/o abd bloating. Senokot BID with Miralax daily scheduled. Had BM prior to discharge. (16) Morbid obesity with BMI of 40.0-44.9, adult: BMI 40.7. (17) DVT prophylaxis: Lovenox daily. Stable for discharge to home on 05/30/19. Total Time Total Time Spent Total Time Spent (In Minutes): >30 minutes Total Time Includes: Examination of the Patient, Discharge Planning, Medication Reconciliation, Communication With Other Providers and Other Discharge Plan Discharge Items Patient Disposition: Home - Home Health Services Reason For Visit: ACUTE EXACERBATION OF COPD Discharge Diagnosis: Acute on Chronic Respiratory Failure in setting of COPD, CHF Condition on Discharge: Fair Goals: You have been hospitalized for an acute medical problem. During your stay at [facility], we have made an effort to correct the problem that brought you to the hospital while keeping you as comfortable as possible. Medications were used to bring your condition under control and your discharge instructions will include directions for any medications you should take after leaving the hospital. Please make sure you see your Primary Care Provider as part of your follow up plan. Activity: As commented below Exercise/Sports: Gradually increase as tolerated Non-emergency contact: Primary Care Provider and Director Of Agronomy Call non-emergency contact if: you have any medication questions, your symptoms worsen and you have a fever Follow-up/Referrals: Kathy Del Cid C.R.N.P. [Primary Care Provider] - Diet: Carb Consistent or DM2 Addtl Attending Provider Instructions: 1. Acute on chronic respiratory failure related to COPD, lung cancer and acute on chronic diastolic heart failure * Please continue to wear 3-4 liters via nasal cannula at home. * Please continue Lasix 40 mg daily and Metolazone every Thursday/Thursday. * Please continue Prednisone 30 mg daily as prescribed. * You will need to follow up with your primary care provider after discharge along with top waddy Dr. Dodge. 2. Low potassium levels * Please take potassium 20 mEq daily (two tablets) at home. 3. Diabetes Mellitus * Please increase home Metformin to twice daily dosing. * Please take Glimepiride 2 mg daily with breakfast. * Monitor blood glucose levels at least twice daily. * You will need to follow up with PCP to discuss blood sugar management. 4. Home health has been resumed following discharge. Pending Studies at Discharge: No Stand-Alone Forms: [facility] Medications and DC Order Prescriptions: New metolazone 5 mg tablet 5 mg PO . Qty: 20 RF: 0 glimepiride 2 mg tablet 2 mg PO DAILY Qty: 30 RF: 2 Continued methadone 10 mg tablet 10 mg PO QID Qty: 12 RF: 0 cholecalciferol (vitamin D3) 400 unit capsule 400 unit PO QAM RF: 0 atorvastatin 80 mg Tablet 80 mg PO HS RF: 0 cyanocobalamin (vitamin B-12) [Vitamin B-12] 100 mcg Tablet 100 mcg PO QAM RF: 0 terazosin 2 mg Capsule 2 mg PO HS RF: 0 docusate sodium 100 mg Capsule 100 mg PO BID RF: 0 pyridoxine (vitamin B6) [Vitamin B-6] 100 mg Tablet 100 mg PO QAM RF: 0 albuterol sulfate 90 mcg/actuation Hfa Aerosol Inhaler 2 puff INHALATION Q4H PRN (Reason: Shortness Of Breath) RF: 0 finasteride 5 mg Tablet 5 mg PO QAM RF: 0 magnesium oxide 400 mg magnesium Capsule 400 mg PO BID RF: 0 furosemide 40 mg Tablet 40 mg PO QAM Qty: 30 RF: 0 Symbicort 160-4.5 mcg/actuation Hfa Aerosol Inhaler 2 puff inhalation BID Qty: 1 RF: 0 sodium chloride [Saline Mist] 0.65 % Aerosol,[place] 1 spray NA Q4H PRN (Reason: nasal congestion) Qty: 1 RF: 0 sennosides 8.6 mg Tablet 17.2 mg PO BID RF: 0 amlodipine [Norvasc] 5 mg tablet 5 mg PO HS RF: 0 albuterol sulfate 1.25 mg/3 mL Solution For Nebulization 1.25 mg INHALATION QID RF: 0 cetirizine 5 mg Tablet 5 mg PO QAM RF: 0 diclofenac sodium [Voltaren] 1 % Gel 4 applic EXT QID PRN (Reason: joint pain) Qty: 1 RF: 0 azelastine 137 mcg (0.1 %) aerosol,spray 1 spray INTRANASAL BID RF: 0 prednisone 10 mg tablet 30 mg PO QAM RF: 0 omeprazole 20 mg capsule,delayed release(DR/EC) 20 mg PO QAM RF: 0 Spiriva with HandiHaler 18 mcg capsule, w/inhalation device 1 puff inhalation QAM RF: 0 Changed potassium chloride 20 mEq Tablet Extended Release 20 meq PO DAILY Qty: 0 RF: 0 metformin 500 mg tablet extended release 24 hr 500 mg PO BID Qty: 0 RF: 0 Discontinued potassium chloride 20 mEq Tablet Extended Release 20 meq PO WEFR@0500 RF: 0 metolazone 5 mg tablet 5 mg PO WEFR@0500 RF: 0 Discharge Orders: Discharge Order (Routine); Ordered 05/30/19 Ordered By: Yareli Zee Admission Data Admit Date/Time: 05/24/19 16:14 Attending Provider: Francy Alford Admit Provider: Francy Alford Primary Care Provider: Kathy Del Cid Other Providers: [facility] ; Francy Alford ; Arnold Sanders ; Dianna Spencer Other Interventions: Discharge Summary Assessment (RN) Last Done: 05/30/19 11:20 DC Date/Time DO NOT enter until pt leaves facility: 05/30/19 13:51 Supervising Physician Co-Signing Physician Notes Patient seen and examined with Yareli Zee PA-C. I agree with with her D/C summary. Patient has essentially end-stage lung disease and stage IV lung cancer. Recommend focusing on comfort at this time. He does have a trilogy at home to prevent exacerbations that he just received. Recommend to follow up with palliative care since he is interested in hospice.
[2019-05-31] MEDS ORDERED: INSULIN HUMAN NPH SC SCH (08:00)
== END 2019-05-30 13:51 | disposition home health service (06) | DRG 189 ==
LOC: ED 11:55 → SUATTDRO 16:14 → 2W 16:14 → 4W 05-29 10:29

== ENCOUNTER 2019-07-02 21:23 | Inpatient (IN) ==
[2019-07-02] MEDS ORDERED: ALBUT/IPRATROP 3MG/0.5MG NEB 3 ML VIAL NEB STA (22:01)
[2019-07-02] MEDS ORDERED: methylPREDNISolone 125 MG/2 ML VIAL IV STA (22:01)
--- NOTE | 2019-07-02 22:19 | XRay Report ---
XR chest 1V portable CLINICAL HISTORY: SEPSIS COMPARISON STUDY: 05/24/2019 FINDINGS: The heart is enlarged. There is a right midlung zone granuloma. Small pleural effusions are suspected. There is suspected bibasilar atelectasis/consolidation. Evaluation is somewhat limited du e to the semierect nature the study. A follow-up PA and lateral study might be considered in follow-u p.[ IMPRESSION: 1. Somewhat limited study from a technical standpoint 2. Possible small pleural effusions 3. Probable bibasilar atelectasis/consolidation 4. A follow-up PA and lateral study is recommended, when the patient is clinically able. ACT 112: Negative or not required by law. Electronically signed by: Shne Orona M.D. 07/02/2019 10:18 PM
[2019-07-02] MEDS ORDERED: PIPERACILLIN/TAZOBACTAM 4.5 GM/120 ML BAG IV ONE (22:26)
[2019-07-02] MEDS ORDERED: PIPERACILL/TAZOBAC CONSULT ACTIVE PRN (22:26)
[2019-07-02 22:41] LABS: Basophils # (auto) 0.01 K/uL (0-0.2); Basophils % (auto) 0.1 %; Eosinophils # (auto) 0.09 K/uL (0-0.5); Eosinophils % (auto) 0.8 %; Hematocrit (blood only) 37.4 % (42-52); Immature Granulocytes # (auto) 0.16 K/uL (0.00-0.02); Immature Granulocytes % (auto) 1.4 %; Lymphocytes # (auto) 1.66 K/uL (1.2-3.4); Lymphocytes % (auto) 14.7 %; Mean Corpuscular Hgb Conc 32.1 g/dL (32-36); Mean Corpuscular Volume 96.6 fL (80-100); Mean Platelet Volume 9.7 fL (7.4-10.4); Monocytes % (auto) 7.1 %; Neutrophils # (auto) 8.58 K/uL (1.4-6.5); Neutrophils % (auto) 75.9 %; Platelet Count 187 K/uL (130-400); RDW Coefficient of Variation 15.6 % (11.5-14.5); RDW Standard Deviation 53.9 fL (36.4-46.3); Red Blood Count 3.87 M/uL (4.7-6.1)
[2019-07-02 23:05] LABS: Alanine Aminotransferase 37 U/L (12-78); Aspartate Aminotransferase 24 U/L (15-37); BUN Creatinine Ratio 26.3 (10-20); Blood Urea Nitrogen 43 mg/dl (7-18); Calcium 10.3 mg/dl (8.5-10.1); Carbon Dioxide 41 mmol/L (21-32); Chloride 84 mmol/L (98-107); Creatinine Clr Calc Pharmacy 49.8 ml/min; Est GFR (African American) 47.7; Est GFR (Non-African American) 41.2; Glucose 161 mg/dl (70-99); Magnesium 2.1 mg/dl (1.8-2.4); Potassium 2.6 mmol/L (3.5-5.1); Sodium 136 mmol/L (136-145)
[2019-07-02 23:08] LABS: Albumin Globulin Ratio 0.8 (0.9-2); Alkaline Phosphatase 75 U/L (45-117); Bilirubin,Total 0.7 mg/dl (0.2-1); Globulin 3.9 gm/dl (2.5-4.0); Total Protein 6.9 gm/dl (6.4-8.2); Troponin I < 0.015 ng/ml (0-0.045)
[2019-07-02 23:11] LABS: INR 1.1 (0.9-1.1); Partial Thromboplastin Ratio 0.8; Partial Thromboplastin Time 21.7 Seconds (21.0-31.0); Prothrombin Time 10.8 Seconds (9.0-12.0)
[2019-07-02 23:19] LABS: Influenza A virus by PCR Neg for Influ A (Neg); Influenza B virus by PCR Neg for Influ B (Neg)
--- NOTE | 2019-07-02 23:19 | Emergency Department Note ---
History of Present Illness General Chief complaint: Shortness of Breath/Dyspnea Stated complaint: shortness of breath History of Present Illness Maximum Pain Intensity: 6 This 74-year-old presents to the ER complaining of cough, congestion, hard to breathe he is on hospice for lung cancer with mets who chronically wears oxygen Location: Chest Quality: Hard to breathe Severity: Moderate Duration: Past few days Timing: Started several days ago Context: Breathing got much worse and patient came in Modifying factors: better with nothing; worse with coughing Patient states that home nebulizers are not helping. He states he is having hard time breathing and has a lot of coughing and congestion. Patient states he does not know how to use his CPAP/BiPAP at home. He states home health nursing has not helped him. He is currently on hospice. He is on chronic prednisone. He takes Lasix. He was on Z-Alhaji. No documented temperature. Patient complains of chest pain and congestion. Patient denies abdominal pain, vomiting, diarrhea. Patient states he would like treatment for his difficulty breathing and does not want to go home like this. Home Medications Home Medications Medication Instructions Recorded Confirmed Type albuterol sulfate 2 puff INHALATION Q4H PRN 03/30/18 07/02/19 History cyanocobalamin (vitamin B-12) 100 mcg PO QAM 03/30/18 07/02/19 History [Vitamin B-12] docusate sodium 100 mg PO BID 03/30/18 07/02/19 History finasteride 5 mg PO QAM 03/30/18 07/02/19 History pyridoxine (vitamin B6) [Vitamin 100 mg PO QAM 03/30/18 07/02/19 History B-6] terazosin 2 mg PO HS 03/30/18 07/02/19 History cholecalciferol (vitamin D3) 10 400 unit PO QAM cap 12/01/18 07/02/19 History mcg (400 unit) capsule magnesium oxide 400 mg PO BID 12/03/18 07/02/19 History amlodipine [Norvasc] 5 mg PO HS 12/07/18 07/02/19 History sennosides 17.2 mg PO BID 12/07/18 07/02/19 History albuterol sulfate 1.25 mg INHALATION QID 12/28/18 07/02/19 History cetirizine 5 mg PO QAM 01/09/19 07/02/19 History diclofenac sodium [Voltaren] 4 applic EXT QID PRN #1 tube 01/15/19 07/02/19 Rx budesonide-formoterol [Symbicort] 2 puff INHALATION BID #1 box 04/05/19 07/02/19 Rx methadone 10 mg tablet 10 mg PO QID #12 tab 04/05/19 07/02/19 Rx sodium chloride [Saline Mist] 1 spray NA Q4H PRN #1 btl 04/05/19 07/02/19 Rx Spiriva with HandiHaler 1 puff INHALATION QAM 05/24/19 07/02/19 History omeprazole 20 mg PO QAM 05/24/19 07/02/19 History prednisone 30 mg PO QAM 05/24/19 07/02/19 History glimepiride 2 mg PO DAILY #30 tab 05/30/19 07/02/19 Rx metformin 500 mg PO BID #0 tab 05/30/19 07/02/19 Rx metolazone 5 mg PO .wedfri #20 tab 05/30/19 07/02/19 Rx potassium chloride 20 meq PO DAILY #0 tab 05/30/19 07/02/19 Rx azelastine 137 mcg (0.1 %) nasal 1 spray INTRANASAL BID PRN 06/16/19 07/02/19 History spray aerosol furosemide 40 mg tablet 80 mg PO QAM tab 06/16/19 07/02/19 History Allergies Allergy/AdvReac Type Severity Reaction Status Date / Time Bactrim Allergy Severe TONGUE Verified 12/02/17 08:11 SWELLS/FONG mupirocin Allergy Severe ANAPHYLAXIS Verified 07/02/19 22:44 sulfamethoxazole Allergy Severe TONGUE Verified 07/02/19 22:44 SWELLS/FONG trimethoprim Allergy Severe TONGUE Verified 07/02/19 22:44 SWELLS/FONG Iodinated Contrast Media Allergy Intermediate HIVES/ITCHI Verified 07/02/19 22:44 NG lisinopril Allergy Intermediate Tongue Verified 07/02/19 22:44 Swelling mustard Allergy Intermediate Hives, Verified 07/02/19 22:44 SOB, Itchy aspirin Allergy Mild ITCHY Verified 07/02/19 22:44 adhesive AdvReac Intermediate Tape - Rash Verified 07/02/19 22:44 Past Med/Surg History Medical History Acute leg pain (Inactive) Bladder cancer CURRENTLY BEING TREATED W/ CHEMOTHERAPY Bladder cancer metastasized to pelvic region (Acute) BPH (benign prostatic hyperplasia) (Chronic) Chronic back pain Chronic respiratory failure (Chronic) Constipation COPD (chronic obstructive pulmonary disease) (Chronic) COPD (chronic obstructive pulmonary disease) (Chronic) DVT prophylaxis Elevated PSA (Chronic) Goals of care, counseling/discussion H/O hematuria (Resolved) H/O malignant neoplasm of skin (Chronic) Hyperlipidemia (Chronic) Hypertension (Resolved) Inguinal hernia BL Left leg swelling (Inactive) Non-small cell lung cancer (Chronic) CURRENTLY BEING TREATED W/ CHEMOTHERAPY Opioid dependence (Chronic) Osteoarthritis Stroke (Chronic) 2009 - NO PERIPHERAL VISION RT SIDE - NO NEUROLOGIST Umbilical hernia Urothelial carcinoma (Chronic) Surgical History H/O hand surgery (Resolved) H/O Moh's micrographic surgery for skin cancer (Resolved) H/O prostate biopsy (Acute) H/O prostatectomy History of bronchoscopy W/ BIOPSY History of colonoscopy History of surgery TRANSURETHRAL RESECTION OF BLADDER TUMOR X 3 History of surgery PLACEMENT OF MEDIPORT W/ REMOVAL History of ureter stent W/ REMOVAL Family History Father , 69yo [place], DM, arthritis, HTN Diabetes Cardiac disorder Hypertension Mother , age 84 from stroke Cardiac disorder Hypertension Brother Diabetes Cardiac disorder Hypertension Cancer, face Sister History of kidney cancer Hypertension Unknown Lung cancer Leukemia Basal cell carcinoma Social History Preferred Language: Micronesian Communication Ability: Effective Visual Impairment: No Limitations Hearing Ability: Hard of Hearing Manager Fiber Required: No Beliefs That Will Affect Care: None marital status: marital status details: 1 son and 3 daughters Current Living Situation: Alone Current Living Situation Comment: apartment 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 Feels Safe at Home: Yes Smoking Status: Former smoker Tobacco Type: cigarettes ; Cigarettes Per Day: 20 ; Second Hand Exposure: No ; Hx Alcohol Use: No Hx Substance Use: No caffeine: Yes (3 cups/day) during the past year weight has: decreased > 10 lbs Review of Systems A total of 10 systems reviewed and were otherwise negative Physical Exam Vital Signs Vital Signs - 24 hr 07/02/19 21:30 07/02/19 21:32 07/02/19 22:01 Temperature 36.7 C Temperature Source Oral Pulse Rate 109 H 109 H 104 H Pulse Rate [Apical] Pulse Rate from SpO2 Sensor 108 H 104 H Respiratory Rate 17 18 17 Respiratory Effort / Characteristics Blood Pressure 102/72 102/72 124/88 Blood Pressure Mean 83 82 97 Blood Pressure Position Sitting Pulse Oximetry 93 93 96 Oxygen Delivery Method Nasal Cannula Nasal Cannula Nasal Cannula Oxygen Flow Rate 4 4 4 Sepsis Recent Fever Within 48 Hours No Sepsis New/Unexplained Change in Mental Status No Sepsis Action Taken by Nursing No Action Required 07/02/19 22:30 07/02/19 22:40 07/02/19 22:47 Temperature Temperature Source Pulse Rate 105 H Pulse Rate [Apical] 102 H Pulse Rate from SpO2 Sensor 105 H Respiratory Rate 24 24 Respiratory Effort / Characteristics Non-Labored Spontaneous Blood Pressure Blood Pressure Mean Blood Pressure Position Pulse Oximetry 95 96 94 Oxygen Delivery Method Nasal Cannula Nasal Cannula Oxygen Flow Rate 4 4 Sepsis Recent Fever Within 48 Hours Sepsis New/Unexplained Change in Mental Status Sepsis Action Taken by Nursing 07/02/19 23:01 Temperature Temperature Source Pulse Rate 101 H Pulse Rate [Apical] Pulse Rate from SpO2 Sensor 101 H Respiratory Rate 18 Respiratory Effort / Characteristics Blood Pressure 126/73 Blood Pressure Mean 92 Blood Pressure Position Pulse Oximetry 95 Oxygen Delivery Method Nasal Cannula Oxygen Flow Rate 4 Sepsis Recent Fever Within 48 Hours Sepsis New/Unexplained Change in Mental Status Sepsis Action Taken by Nursing VITALS: Vitals are noted on the nurse's note and reviewed by myself. Vital signs mildly tachycardic. GENERAL: Elderly male working to breathe with nasal cannula, nondiaphoretic SKIN: The skin was without rashes or bruising. There is no tenting of the skin. Capillary reflex less than 2 seconds. HEAD: Normocephalic atraumatic. EARS: External auditory canals clear EYES: Pupils equal round and reactive to light and accommodation. Conjunctivae without injection, sclerae without icterus. Extraocular movements intact. NOSE: Patent, turbinates without inflammation or discharge. MOUTH: Mucous membranes mildly dry. Pharynx without erythema or exudate. Uvula midline. Airway patent. Tongue does not deviate. NECK: Supple without nuchal rigidity. No lymphadenopathy. No thyromegaly. Cervical spine is nontender. No JVD. HEART: Regular rate and rhythm LUNGS: Diffuse inspiratory and end expiratory wheezes, No retractions or accessory muscle use. ABDOMEN: Positive bowel sounds x 4. Normal tympanic percussion. Soft, nontender, without masses or organomegaly. Escobar sign negative. No guarding or rebound tenderness. No CVA tenderness MUSCULOSKELETAL: No muscle atrophy noted. +2 pitting edema up to the mid tib- fib bilaterally. Unchanged per patient. NEURO: Patient was alert and oriented to person place and time. Normal sensation to light and sharp touch. No focal neurological deficits. Course Administered Medications Discontinued Medications Albuterol (Duoneb) 3 ml NEB NOW STA Stop: 07/02/19 22:02 Last Admin: 07/02/19 22:45 Dose: 3 ml Documented by: [id number] Piperacillin Sod/Tazobactam Sod (Zosyn) 4.5 gm in 120 mls @ 240 mls/hr IV NOW ONE Stop: 07/02/19 22:55 Last Infusion: 07/02/19 23:52 Dose: 0 mls/hr Documented by: [id number] Admin: 07/02/19 23:01 Dose: 240 mls/hr Documented by: [id number] Methylprednisolone (Solumedrol) 125 mg IV NOW STA Stop: 07/02/19 22:02 Last Admin: 07/02/19 22:32 Dose: 125 mg Documented by: [id number] Potassium Chloride (Klor-Con M10) 40 meq PO NOW STA Stop: 07/02/19 23:37 Last Admin: 07/02/19 23:52 Dose: 40 meq Documented by: [id number] Medical Decision Making Medical Records Attestation: I reviewed the patient's medical records. Home Medications Current Medication List: was personally reviewed by me Laboratory Data Attestation: I reviewed the patient's lab results. Result diagrams: 07/02/19 22:18 07/02/19 22:18 Lab Results 07/02/19 07/02/19 07/02/19 Range/Units 22:18 22:18 22:18 WBC 11.30 H (4.8-10.8) K/uL RBC 3.87 L (4.7-6.1) M/uL Hgb 12.0 L (14.0-18.0) g/dL Hct 37.4 L (42-52) % MCV 96.6 (80-100) fL MCH 31.0 (25-34) pg MCHC 32.1 (32-36) g/dL RDW Std Deviation 53.9 H (36.4-46.3) fL RDW Coeff of James 15.6 H (11.5-14.5) % Plt Count 187 (130-400) K/uL MPV 9.7 (7.4-10.4) fL Immature Gran % (Auto) 1.4 % Neut % (Auto) 75.9 % Lymph % (Auto) 14.7 % [place] % (Auto) 7.1 % Eos % (Auto) 0.8 % Baso % (Auto) 0.1 % Immature Gran # (Auto) 0.16 H (0.00-0.02) K/uL Neut # (Auto) 8.58 H (1.4-6.5) K/uL Lymph # (Auto) 1.66 (1.2-3.4) K/uL [place] # (Auto) 0.80 H (0.11-0.59) K/uL Eos # (Auto) 0.09 (0-0.5) K/uL Baso # (Auto) 0.01 (0-0.2) K/uL PT 10.8 (9.0-12.0) Seconds INR 1.1 (0.9-1.1) APTT 21.7 (21.0-31.0) Seconds PTT Ratio 0.8 VBG pH (7.36-7.41) VBG pCO2 (38-50) mmHg VBG pO2 mmHg VBG HCO3 mmol/L VBG O2 Saturation % VBG Base Excess mEq/L Barometric Pressure mm/Hg Sodium 136 (136-145) mmol/L Potassium 2.6 L (3.5-5.1) mmol/L Chloride 84 L (98-107) mmol/L Carbon Dioxide 41 H* (21-32) mmol/L Anion Gap 13.0 H (3-11) BUN 43 H (7-18) mg/dl Creatinine 1.64 H (0.6-1.4) mg/dl Est Cr Clr Drug Dosing 49.8 ml/min Est GFR ( Amer) 47.7 Est GFR (Non-Af Amer) 41.2 BUN/Creatinine Ratio 26.3 H (10-20) Glucose 161 H (70-99) mg/dl Lactate (0.4-2.0) mmol/L Calcium 10.3 H (8.5-10.1) mg/dl Magnesium 2.1 (1.8-2.4) mg/dl Total Bilirubin 0.7 (0.2-1) mg/dl AST 24 (15-37) U/L ALT 37 (12-78) U/L Alkaline Phosphatase 75 (45-117) U/L Troponin I < 0.015 (0-0.045) ng/ml NT-Pro-B Natriuret Pep 269 (0-900) pg/ml Total Protein 6.9 (6.4-8.2) gm/dl Albumin 3.0 L (3.4-5.0) gm/dl Globulin 3.9 (2.5-4.0) gm/dl Albumin/Globulin Ratio 0.8 L (0.9-2) Influenza Type A (PCR) (Neg) Influenza Type B (PCR) (Neg) 07/02/19 07/02/19 07/02/19 Range/Units 22:39 22:45 23:51 WBC (4.8-10.8) K/uL RBC (4.7-6.1) M/uL Hgb (14.0-18.0) g/dL Hct (42-52) % MCV (80-100) fL MCH (25-34) pg MCHC (32-36) g/dL RDW Std Deviation (36.4-46.3) fL RDW Coeff of James (11.5-14.5) % Plt Count (130-400) K/uL MPV (7.4-10.4) fL Immature Gran % (Auto) % Neut % (Auto) % Lymph % (Auto) % [place] % (Auto) % Eos % (Auto) % Baso % (Auto) % Immature Gran # (Auto) (0.00-0.02) K/uL Neut # (Auto) (1.4-6.5) K/uL Lymph # (Auto) (1.2-3.4) K/uL [place] # (Auto) (0.11-0.59) K/uL Eos # (Auto) (0-0.5) K/uL Baso # (Auto) (0-0.2) K/uL PT (9.0-12.0) Seconds INR (0.9-1.1) APTT (21.0-31.0) Seconds PTT Ratio VBG pH 7.50 H (7.36-7.41) VBG pCO2 55 H (38-50) mmHg VBG pO2 52 mmHg VBG HCO3 42 mmol/L VBG O2 Saturation 85.3 % VBG Base Excess 16.6 mEq/L Barometric Pressure 736.5 mm/Hg Sodium (136-145) mmol/L Potassium (3.5-5.1) mmol/L Chloride (98-107) mmol/L Carbon Dioxide (21-32) mmol/L Anion Gap (3-11) BUN (7-18) mg/dl Creatinine (0.6-1.4) mg/dl Est Cr Clr Drug Dosing ml/min Est GFR ( Amer) Est GFR (Non-Af Amer) BUN/Creatinine Ratio (10-20) Glucose (70-99) mg/dl Lactate 1.9 (0.4-2.0) mmol/L Calcium (8.5-10.1) mg/dl Magnesium (1.8-2.4) mg/dl Total Bilirubin (0.2-1) mg/dl AST (15-37) U/L ALT (12-78) U/L Alkaline Phosphatase (45-117) U/L Troponin I (0-0.045) ng/ml NT-Pro-B Natriuret Pep (0-900) pg/ml Total Protein (6.4-8.2) gm/dl Albumin (3.4-5.0) gm/dl Globulin (2.5-4.0) gm/dl Albumin/Globulin Ratio (0.9-2) Influenza Type A (PCR) Neg for Influ A (Neg) Influenza Type B (PCR) Neg for Influ B (Neg) Imaging Data Attestation: I personally reviewed and interpreted this imaging study as follows: Blood Pressure Blood Pressure Findings: Normal blood pressure MDM Narrative Prior records/ancillary studies reviewed. Triage Nursing notes reviewed. Additional history obtained from the family. The patient's history was concerning for respiratory difficulties. Differential diagnosis: Etiologies such as infections, reactive airway disease, pneumonia, pneumothorax , COPD, CHF, cardiac ischemia, pulmonary embolism, musculoskeletal, gastrointestinal, as well as others were entertained. Physical examination: As above. ER treatment provided: An order was placed for continuous cardiac monitoring. The monitor shows a rate of 60-1 20 with a normal sinus rhythm. Nebulizer, steroids, Zosyn On reassessment the patient felt better. Diagnostic interpretation by me: The electrocardiogram was negative for acute ischemic or pathologic change. Poor baseline, normal sinus, normal intervals, no acute ST-T wave changes, rate of 103. Impression sinus tachycardia interpreted by myself Ordered for chest pain I think arrhythmia is unlikely. EKG shows normal sinus rhythm with no interval abnormalities such as QT prolongation or WPW. There are no findings to suggest Brugada syndrome. Cardiac monitoring in the emergency department reveals no tachycardic or bradycardic dysrhythmia. Hypertrophic cardiomyopathy was considered but there are no clear historical elements pointing toward this. EKG is not suggestive. The QRS voltage is not extremely large and there are no suggestive Q waves. The labs revealed leukocytosis, negative lactic acid, negative flu, hypokalemia Blood cultures pending ABG reviewed Imaging studies: XR chest 1V portable CLINICAL HISTORY: SEPSIS COMPARISON STUDY: 05/24/2019 FINDINGS: The heart is enlarged. There is a right midlung zone granuloma. Small pleural effusions are suspected. There is suspected bibasilar atelecta sis/consolidation. Evaluation is somewhat limited due to the semierect nature the study. A follow-up PA and lateral study might be considered in follow-up.[ IMPRESSION: 1. Somewhat limited study from a technical standpoint 2. Possible small pleural effusions 3. Probable bibasilar atelectasis/consolidation 4. A follow-up PA and lateral study is recommended, when the patient is clinically able. ACT 112: Negative or not required by law. Electronically signed by: Shen Orona M.D. 07/02/2019 10:18 PM Dictated: 07/02/192214 Transcribed: 07/02/192214 Consultation: A consultation was placed with DR Rodriguez, hospitalist. The case was discussed and diagnostics were reviewed. The patient was evaluated in the ER for further treatment. This appears to be consistent with pneumonia with COPD exacerbation in a hospice patient requesting further evaluation treatment and admission. Patient started on antibiotics. He was given a nebulizer and steroids. Medicine was consu lted. He does not want to go home. He is requesting admission. Sister is present. By the evaluation outlined above emergent etiologies such as cardiac ischemia, pulmonary embolism, reactive airway disease, pneumothorax, musculoskeletal, as well as others were deemed relatively unlikely. The pt informed about the findings as listed above. All questions were answered and pleased with the treatment. The chart was completed utilizing [employer] Speech voice recognition software. Grammatical errors, random word insertions, pronoun errors, and incomplete sentences are an occassional consequence of this system due to software limitations, ambient noise, and hardware issues. Any formal questions or concerns about the content, text, or information contained within the body of this dictation should be directly addressed to the physician dental assistant medical assistant for clarification. Impression & Plan Pneumonia, Acute exacerbation of chronic obstructive pulmonary disease, Stage 4 lung cancer Discharge Plan Visit Data Chief Complaint: Shortness of Breath/Dyspnea Stated Complaint: shortness of breath ED Provider: Reinaldo Tristan ED Midlevel Provider: Gloria Johnson Discharge Problem: Pneumonia, Acute exacerbation of chronic obstructive pulmonary disease, Stage 4 lung cancer Patient Disposition: Being Evaluated by Hospitalist Condition: Fair Forms Stand Alone Forms: Peak Prescriptions Prescriptions: No Action methadone 10 mg tablet 10 mg PO QID Qty: 12 RF: 0 furosemide 40 mg tablet 80 mg PO QAM RF: 0 cholecalciferol (vitamin D3) 400 unit capsule 400 unit PO QAM RF: 0 cyanocobalamin (vitamin B-12) [Vitamin B-12] 100 mcg Tablet 100 mcg PO QAM RF: 0 terazosin 2 mg Capsule 2 mg PO HS RF: 0 docusate sodium 100 mg Capsule 100 mg PO BID RF: 0 pyridoxine (vitamin B6) [Vitamin B-6] 100 mg Tablet 100 mg PO QAM RF: 0 albuterol sulfate 90 mcg/actuation Hfa Aerosol Inhaler 2 puff INHALATION Q4H PRN (Reason: Shortness Of Breath) RF: 0 finasteride 5 mg Tablet 5 mg PO QAM RF: 0 magnesium oxide 400 mg magnesium Capsule 400 mg PO BID RF: 0 budesonide-formoterol [Symbicort] 160-4.5 mcg/actuation Hfa Aerosol Inhaler 2 puff inhalation BID Qty: 1 RF: 0 sodium chloride [Saline Mist] 0.65 % Aerosol,Chelsea 1 spray NA Q4H PRN (Reason: nasal congestion) Qty: 1 RF: 0 sennosides 8.6 mg Tablet 17.2 mg PO BID RF: 0 amlodipine [Norvasc] 5 mg tablet 5 mg PO HS RF: 0 albuterol sulfate 1.25 mg/3 mL Solution For Nebulization 1.25 mg INHALATION QID RF: 0 cetirizine 5 mg Tablet 5 mg PO QAM RF: 0 diclofenac sodium [Voltaren] 1 % Gel 4 applic EXT QID PRN (Reason: joint pain) Qty: 1 RF: 0 prednisone 10 mg tablet 30 mg PO QAM RF: 0 omeprazole 20 mg capsule,delayed release(DR/EC) 20 mg PO QAM RF: 0 Spiriva with HandiHaler 18 mcg capsule, w/inhalation device 1 puff inhalation QAM RF: 0 potassium chloride 20 mEq Tablet Extended Release 20 meq PO DAILY Qty: 0 RF: 0 metformin 500 mg tablet extended release 24 hr 500 mg PO BID Qty: 0 RF: 0 metolazone 5 mg tablet 5 mg PO .wedfri Qty: 20 RF: 0 glimepiride 2 mg tablet 2 mg PO DAILY Qty: 30 RF: 2 azelastine 137 mcg (0.1 %) aerosol,spray 1 spray INTRANASAL BID PRN (Reason: Nasal Congestion) RF: 0 Referrals Referrals: Kathy Del Cid C.R.N.P. [Primary Care Provider] - Discharge Problem: Pneumonia Qualifiers: Pneumonia type: due to unspecified organism Laterality: unspecified laterality Lung location: unspecified part of lung Qualified Code(s): J18.9 - Pneumonia, unspecified organism
--- NOTE | 2019-07-02 23:21 | Emergency Department Note ---
ED Visit Note Patient presents with worsening respiratory complaints. He is being treated for pneumonia. He is on oral antibiotics. The patient is in need of a hospital stay. He is not comfortable with discharge home. His situation has worsened despite his antibiotics. Chest x-ray does suggest a bilateral lower lung pneumonia, he does have a slight white blood cell count elevation. His CO2 is elevated consistent with some respiratory compromise. The on-call hospitalist has been consulted. .
[2019-07-02] MEDS ORDERED: POTASSIUM CHLORIDE 10 MEQ TABCR PO STA (23:36)
[2019-07-02] MEDS ORDERED: SODIUM CHLORIDE 0.65% NA SOLN 45 ML (OCEAN) PRN (23:40)
--- NOTE | 2019-07-02 23:40 | History & Physical Report ---
Date of Service July 02, 2019 Assessment & Plan (1) Acute and chronic respiratory failure: Patient admitted with acute on chronic hypercapnic respiratory failure. -Likely related to COPD. Doubt CHF as cause, BNP is low, however, patient does complain of orthopnea. - CXR with severe emphysema and atelectasis. - Currently requiring 4L via NC/ However due to his elevated bicarb on BMP and elevated C02 on VBG, patient will benefit from BIPAP. -At the moment will hold the diuretic and monitor kidney function. If his breathing worsens, can resume the lasix. -Patient likely worse as he is non compliant with the CPAP due to not knowing how to use it (as per patient). -will need to confirm that home health will help. Patient currently has hospice taking care of him but does want to be a full code and is "not ready to " as of yet. (2) Acute exacerbation of chronic obstructive pulmonary disease: as noted above. (3) Morbid obesity with BMI of 40.0-44.9, adult: Life style modifications however given his end stage lung disease and cancer, it may be difficult. (4) Hypokalemia: will replace (5) Non-small cell carcinoma of left lung: F/U with Dr. Boykin as an outpatient. 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 - Palliative was seen in last admission. (6) Edema: will monitor. will hold diuretic as of now. (7) DVT prophylaxis: heparin History of Present Illness Chief Complaint: SOB at rest Primary Care Provider: Kathy Del Cid Patient is a 74 years old male with past medical history of chronic respiratory failure, diabetes mellitus type 2 with complications, benign prostatic hypertrophy, stage IV lung cancer currently not under treatment. Patient with adverse reaction to Opdivo, chronic pain on methadone, hypertension, hyperlipidemia who presents to the emergency room with severe shortness of breath and acute respiratory failure. 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 Patient recently discharged with COPD exacerbation about 32 days ago. Patient reports that he has been getting more short of breath over the course of the past 2-3 weeks. He obtained a z pack this past week and completed it. He states that this did not help with his symptoms. He states that he has the CPAP machine at home but does not know how to use it. Patient denies any fever chills. He does report orthopnea. Patient states he has been compliant with his lasix and his urine has been getting darker. Despite this his SOB has not improved. Patient came to the ED and was found to have hypercapnic respiratory failure. On another note, he states that he has followed with Oncology who states he no longer requires any further cancer treatment at this time. Allergies Allergy/AdvReac Type Severity Reaction Status Date / Time Bactrim Allergy Severe TONGUE Verified 12/02/17 08:11 SWELLS/FONG mupirocin Allergy Severe ANAPHYLAXIS Verified 07/02/19 22:44 sulfamethoxazole Allergy Severe TONGUE Verified 07/02/19 22:44 SWELLS/FONG trimethoprim Allergy Severe TONGUE Verified 07/02/19 22:44 SWELLS/FONG Iodinated Contrast Media Allergy Intermediate HIVES/ITCHI Verified 07/02/19 22:44 NG lisinopril Allergy Intermediate Tongue Verified 07/02/19 22:44 Swelling mustard Allergy Intermediate Hives, Verified 07/02/19 22:44 SOB, Itchy aspirin Allergy Mild ITCHY Verified 07/02/19 22:44 adhesive AdvReac Intermediate Tape - Rash Verified 07/02/19 22:44 Home Medications Home Medications Medication Instructions Recorded Confirmed Type albuterol sulfate 2 puff INHALATION Q4H PRN 03/30/18 07/02/19 History cyanocobalamin (vitamin B-12) 100 mcg PO QAM 03/30/18 07/02/19 History [Vitamin B-12] docusate sodium 100 mg PO BID 03/30/18 07/02/19 History finasteride 5 mg PO QAM 03/30/18 07/02/19 History pyridoxine (vitamin B6) [Vitamin 100 mg PO QAM 03/30/18 07/02/19 History B-6] terazosin 2 mg PO HS 03/30/18 07/02/19 History cholecalciferol (vitamin D3) 10 400 unit PO QAM cap 12/01/18 07/02/19 History mcg (400 unit) capsule magnesium oxide 400 mg PO BID 12/03/18 07/02/19 History amlodipine [Norvasc] 5 mg PO HS 12/07/18 07/02/19 History sennosides 17.2 mg PO BID 12/07/18 07/02/19 History albuterol sulfate 1.25 mg INHALATION QID 12/28/18 07/02/19 History cetirizine 5 mg PO QAM 01/09/19 07/02/19 History diclofenac sodium [Voltaren] 4 applic EXT QID PRN #1 tube 01/15/19 07/02/19 Rx budesonide-formoterol [Symbicort] 2 puff INHALATION BID #1 box 04/05/19 07/02/19 Rx methadone 10 mg tablet 10 mg PO QID #12 tab 04/05/19 07/02/19 Rx sodium chloride [Saline Mist] 1 spray NA Q4H PRN #1 btl 04/05/19 07/02/19 Rx Spiriva with HandiHaler 1 puff INHALATION QAM 05/24/19 07/02/19 History omeprazole 20 mg PO QAM 05/24/19 07/02/19 History prednisone 30 mg PO QAM 05/24/19 07/02/19 History glimepiride 2 mg PO DAILY #30 tab 05/30/19 07/02/19 Rx metformin 500 mg PO BID #0 tab 05/30/19 07/02/19 Rx metolazone 5 mg PO .wedfri #20 tab 05/30/19 07/02/19 Rx potassium chloride 20 meq PO DAILY #0 tab 05/30/19 07/02/19 Rx azelastine 137 mcg (0.1 %) nasal 1 spray INTRANASAL BID PRN 06/16/19 07/02/19 History spray aerosol furosemide 40 mg tablet 80 mg PO QAM tab 06/16/19 07/02/19 History Past Med/Surg History Medical History Acute leg pain (Inactive) Bladder cancer CURRENTLY BEING TREATED W/ CHEMOTHERAPY Bladder cancer metastasized to pelvic region (Acute) BPH (benign prostatic hyperplasia) (Chronic) Chronic back pain Chronic respiratory failure (Chronic) Constipation COPD (chronic obstructive pulmonary disease) (Chronic) COPD (chronic obstructive pulmonary disease) (Chronic) DVT prophylaxis Elevated PSA (Chronic) Goals of care, counseling/discussion H/O hematuria (Resolved) H/O malignant neoplasm of skin (Chronic) Hyperlipidemia (Chronic) Hypertension (Resolved) Inguinal hernia BL Left leg swelling (Inactive) Non-small cell lung cancer (Chronic) CURRENTLY BEING TREATED W/ CHEMOTHERAPY Opioid dependence (Chronic) Osteoarthritis Stroke (Chronic) 2008 - NO PERIPHERAL VISION RT SIDE - NO NEUROLOGIST Umbilical hernia Urothelial carcinoma (Chronic) Surgical History H/O hand surgery (Resolved) H/O Moh's micrographic surgery for skin cancer (Resolved) H/O prostate biopsy (Acute) H/O prostatectomy History of bronchoscopy W/ BIOPSY History of colonoscopy History of surgery TRANSURETHRAL RESECTION OF BLADDER TUMOR X 3 History of surgery PLACEMENT OF MEDIPORT W/ REMOVAL History of ureter stent W/ REMOVAL Family History Father , 69yo MS, DM, arthritis, HTN Diabetes Cardiac disorder Hypertension Mother , age 84 from stroke Cardiac disorder Hypertension Brother Diabetes Cardiac disorder Hypertension Cancer, face Sister History of kidney cancer Hypertension Unknown Lung cancer Leukemia Basal cell carcinoma Social History Preferred Language: Yakut Communication Ability: Effective Visual Impairment: No Limitations Hearing Ability: Hard of Hearing Cosmetic Dentist Required: No Beliefs That Will Affect Care: None marital status: marital status details: 1 son and 3 daughters Current Living Situation: Alone Current Living Situation Comment: apartment current occupational status: retired 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 [employer] Other Information That Helps Us Care for You: No Feels Safe at Home: Yes Safety Concerns: Feels Safe At This Time Smoking Status: Former smoker Tobacco Type: cigarettes ; Cigarettes Per Day: 20 ; Do You Dip or Chew Tobacco: No ; Second Hand Exposure: No ; Tobacco Cessation Education Requested by Patient: No Hx Alcohol Use: No Hx Substance Use: No caffeine: Yes (3 cups/day) during the past year weight has: decreased > 10 lbs Review of Systems Constitutional: no fever and no sweats Eyes: no diplopia and no discharge Ear, Nose, Mouth, Throat: no ear trauma Respiratory: + cough, + dyspnea and + dyspnea on exertion Cardiovascular: + dyspnea at rest and + orthopnea Gastrointestinal: no abdominal pain and no early satiety Genitourinary: no dysuria Musculoskeletal: no back pain Integumentary: no acne Neurologic: no gait abnormality Psychiatric: no behavioral changes and no anhedonia Endocrine: + fatigue Physical Exam Physical Exam: Constitutional: WD/WN, vitals as above well developed and + morbidly obese Eyes: PERRL, conjunctivae normal, anicteric sclerae ENMT: external ear and nose normal, oropharynx normal Neck: trachea midline, no thyromegaly, difficult to assess JVD Respiratory: + respiratory distress, + labored breathing Auscultation: + diminished lung sounds, + wheezes Cardiovascular: Heart Sounds: normal S1 and normal S2 Vessels: dorsalis pedis pulses present Musculoskeletal: no cyanosis or clubbing, extremities motor strength 5/5 Skin: no rashes, warm and dry Neurologic: patellar DTR's 2+ bilat, sensation intact Psychiatric: A+Ox3, euthymic affect Lymphatic: no cervical or axillary lymphadenopathy Results & Data Vital Signs (Past 12 Hours) Vital Signs Temp Pulse Pulse Resp BP Pulse Ox 07/02/19 23:01 101 H 18 126/73 95 07/02/19 22:47 102 H 24 94 07/02/19 22:40 96 07/02/19 22:30 105 H 24 95 07/02/19 22:01 104 H 17 124/88 96 07/02/19 21:32 36.7 C 109 H 18 102/72 93 07/02/19 21:30 109 H 17 102/72 93 Code Status & VTE Plan VTE Prophylaxis Plan VTE Prophylaxis will be ordered: Yes PG Care Time/CCT Total # of Minutes Spent Total Time Spent with Patient: Total time spent is greater than 50% in coordination of care (as documented) at patient's floor/unit and/or counseling p atient: Coding Level of Care Code 90158 Initial Inpt Care Lvl 3 Diagnoses Acute and chronic respiratory failure J96.20 Acute exacerbation of chronic obstructive pulmonary disease J44.1 Morbid obesity with BMI of 40.0-44.9, adult E66.01; Z68.41 Hypokalemia E87.6 Non-small cell carcinoma of left lung C34.92 Edema R60.9 Edema type: unspecified DVT prophylaxis Z29.9 Time Spent (min) 45 (1) Edema Edema type: unspecified Qualified Code(s): R60.9 - Edema, unspecified
[2019-07-03 00:05] LABS: NT Pro B Type Natriuretic Pept 269 pg/ml (0-900)
[2019-07-03 00:09] LABS: Base Excess VBG 16.6 mEq/L; Oxygen Saturation VBG 85.3 %; pH VBG 7.5 (7.36-7.41)
[2019-07-03] MEDS: POTASSIUM CHLORIDE / WTR 10 MEQ/100 ML PLCT IV SCH ×4 (01:54→02:30)
[2019-07-03] MEDS: FLUTICASONE/VILANTEROL 100/25MCG 14 PUFFS/INHALER INH SCH (01:55)
[2019-07-03] MEDS: PIPERACILLIN/TAZOBACTAM 4.5 GM in DEXTROSE 5% 100 ML IV SCH ×2 (03:21→11:36)
[2019-07-03 05:36] LABS: Basophils # (auto) 0.01 K/uL (0-0.2); Basophils % (auto) 0.1 %; Eosinophils # (auto) 0.01 K/uL (0-0.5); Eosinophils % (auto) 0.1 %; Hematocrit (blood only) 34.8 % (42-52); Hemoglobin 11.1 g/dL (14.0-18.0); Immature Granulocytes # (auto) 0.15 K/uL (0.00-0.02); Immature Granulocytes % (auto) 1.5 %; Lymphocytes # (auto) 0.56 K/uL (1.2-3.4); Lymphocytes % (auto) 5.7 %; Mean Corpuscular Hemoglobin 30.7 pg (25-34); Mean Corpuscular Hgb Conc 31.9 g/dL (32-36); Mean Corpuscular Volume 96.1 fL (80-100); Mean Platelet Volume 9.6 fL (7.4-10.4); Monocytes # (auto) 0.16 K/uL (0.11-0.59); Monocytes % (auto) 1.6 %; Neutrophils # (auto) 8.95 K/uL (1.4-6.5); Platelet Count 172 K/uL (130-400); RDW Coefficient of Variation 15.7 % (11.5-14.5); RDW Standard Deviation 54.8 fL (36.4-46.3); Red Blood Count 3.62 M/uL (4.7-6.1); White Blood Count 9.84 K/uL (4.8-10.8)
[2019-07-03 05:42] LABS: Base Excess VBG 16.9 mEq/L; pH VBG 7.51 (7.36-7.41)
[2019-07-03 06:00] LABS: BUN Creatinine Ratio 24.8 (10-20); Calcium 9.5 mg/dl (8.5-10.1); Creatinine Clr Calc Pharmacy 46.8 ml/min; Est GFR (African American) 45.4; Est GFR (Non-African American) 39.1; Potassium 2.9 mmol/L (3.5-5.1)
[2019-07-03] MEDS: LEVALBUTEROL HCL 1.25 MG/3 ML NEB NEB SCH ×3 (06:51→19:00)
[2019-07-03] MEDS ORDERED: LEVOFLOXACIN/D5W 750 MG/150 ML BAG IV SCH (08:00)
[2019-07-03] MEDS: AZELASTINE~ORDER AWAITING ACTION SCH ×2 (08:17→16:34)
[2019-07-03] MEDS: DOCUSATE SODIUM 100 MG CAP PO SCH ×2 (08:20→22:44)
[2019-07-03] MEDS: HEPARIN SOD 5,000 UNIT/0.5 ML VIAL SQ SCH ×2 (08:20→19:44)
[2019-07-03] MEDS: METHADONE HCL 10 MG TAB PO SCH ×4 (08:20→22:44)
[2019-07-03] MEDS: UMECLIDINIUM BROMIDE 62.5MCG/BLISTER 7 PUFFS/INHALER INH SCH (08:20)
[2019-07-03] MEDS: FINASTERIDE 5 MG TAB PO SCH (08:21)
[2019-07-03] MEDS: SENNA 8.6 MG TAB PO SCH ×2 (08:21→19:42)
[2019-07-03] MEDS: MAGNESIUM OXIDE 400 MG TAB PO SCH ×2 (08:21→19:42)
[2019-07-03] MEDS: PANTOprazole 40 MG TAB PO SCH (08:21)
[2019-07-03] MEDS: PYRIDOXINE HCL 50 MG TAB PO SCH (08:22)
[2019-07-03] MEDS: CYANOCOBALAMIN (VITAMIN B-12) 100 MCG TABLET PO SCH (08:22)
[2019-07-03] MEDS: CHOLECALCIFEROL (VITAMIN D) 400 UNITS TABLET PO SCH (08:22)
[2019-07-03] MEDS: methylPREDNISolone 40 MG in SYRINGE 0 ML IV SCH (08:23)
[2019-07-03] MEDS: CETIRIZINE HCL 10 MG TABLET PO SCH (08:23)
--- NOTE | 2019-07-03 08:59 | Hospitalist Progress Note ---
Date of Service July 03, 2019 Assessment & Plan (1) Acute and chronic respiratory failure: Continue admit to PCU on telemetry . Patient admitted with acute on chronic hypercapnic respiratory failure. Severe COPD exacerbation. Patient also has non-small cell carcinoma of the left lung with metastasis to the vertebra. CXR with severe emphysema and atelectasis. Currently requiring 4L via NC/ However due to his elevated bicarb on BMP and elevated C02 on VBG, patient will benefit from BIPAP. Continue Levaquin 750 mg IV every 24 hours and piperacillin/tazobactam 4.5 g IV every 8 hours. At the moment will hold the diuretic and monitor kidney function. If his breathing worsens, can resume the Lasix. Patient likely worse as he is non compliant with the CPAP due to not knowing how to use it (as per patient). Patient was admitted multiple times so far and we recommended to be discharged go to senior living which he refused. Patient currently has hospice taking care of him but does want to be a full code and is "not ready to " as of yet. DVT prophylaxis Heparin 5000 every 12 hours subacute. (2) Acute exacerbation of chronic obstructive pulmonary disease: as noted above. (3) Morbid obesity with BMI of 40.0-44.9, adult: Life style modifications however given his end stage lung disease and cancer, it may be difficult. (4) Hypokalemia: will replace (5) Non-small cell carcinoma of left lung: F/U with Dr. Boykin as an outpatient. 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 - Palliative was seen in last admission. (6) Edema: Improving, will monitor. will hold diuretic as of now. (7) DVT prophylaxis: Heparin 5000 units every 12 hours subacute. Admission and Anticipated Discharge Date Admission Date: July 02, 2019 Possibly discharge tomorrow to hospice if patient clinically stable. Subjective Patient seen and examined at the bedside. No acute event overnight. Afebrile. Patient reports shortness of breath is slowly improving. Patient denies fever, chills, chest pain, shortness of breath, abdominal pain, frequency, urgency. Patient has chronic respiratory failure due to failing lungs. He is usually on 3 to 4 L of oxygen 24/7 at home. He also uses [facility]. Patient is at the present time on hospice for severe COPD. Review of Systems Review of Systems: All systems reviewed & are unremarkable except as noted in HPI & below Physical Exam Constitutional: WD/WN, vitals as above well developed and + morbidly obese Eyes: PERRL, conjunctivae normal, anicteric sclerae ENMT: external ear and nose normal, oropharynx normal Neck: trachea midline, no thyromegaly Respiratory: normal respiratory effort, lungs clear to auscultation Cardiovascular: RRR, no murmur, no edema Gastrointestinal (Abdomen): normal bowel sounds, soft, nontender, no hepatosplenomegaly Musculoskeletal: no cyanosis or clubbing, extremities motor strength 5/5 Skin: no rashes, warm and dry Neurologic: patellar DTR's 2+ bilat, sensation intact Psychiatric: A+Ox3, euthymic affect Lymphatic: no cervical or axillary lymphadenopathy Results & Data ([facility]) Vital Signs (Past 12 Hours) Vital Signs Temp Pulse Pulse Pulse Resp BP BP 07/03/19 08:00 36.7 C 97 H 20 136/68 07/03/19 06:56 78 18 07/03/19 04:00 36.8 C 92 H 20 143/74 H 07/03/19 02:38 87 20 07/03/19 02:00 90 07/03/19 01:31 36.3 C L 99 H 24 152/84 H 07/03/19 00:56 105 H 19 102/58 L 07/02/19 23:01 101 H 18 126/73 07/02/19 22:47 102 H 24 07/02/19 22:40 07/02/19 22:30 105 H 24 07/02/19 22:01 104 H 17 124/88 07/02/19 21:32 36.7 C 109 H 18 102/72 07/02/19 21:30 109 H 17 102/72 Pulse Ox 07/03/19 08:00 96 07/03/19 06:56 94 07/03/19 04:00 91 07/03/19 02:38 94 07/03/19 02:00 07/03/19 01:31 92 07/03/19 00:56 94 07/02/19 23:01 95 07/02/19 22:47 94 07/02/19 22:40 96 07/02/19 22:30 95 07/02/19 22:01 96 07/02/19 21:32 93 07/02/19 21:30 93 PG Care Time/CCT Total # of Minutes Spent Total Time Spent with Patient: Total time spent is greater than 50% in coordination of care (as documented) at patient's floor/unit and/or counseling patient: Coding Level of Care Code 63917 Subseq Hosp Care Lvl 3 Diagnoses Acute and chronic respiratory failure J96.20 Acute exacerbation of chronic obstructive pulmonary disease J44.1 Morbid obesity with BMI of 40.0-44.9, adult E66.01; Z68.41 Hypokalemia E87.6 Non-small cell carcinoma of left lung C34.92 Edema R60.9 Edema type: unspecified DVT prophylaxis Z29.9 (1) Edema Edema type: unspecified Qualified Code(s): R60.9 - Edema, unspecified
[2019-07-03] MEDS ORDERED: POTASSIUM CHLORIDE 20 MEQ TABCR PO SCH (09:00)
[2019-07-03] MEDS ORDERED: PHARMACY GLYCEMIC MGMT CONSULT SCH (09:37)
[2019-07-03] MEDS ORDERED: GLUCAGON FOR INJ 1 MG VIAL IM PRN (09:45)
[2019-07-03] MEDS ORDERED: DEXTROSE 50% 50 ML SYRINGE IV PRN (09:45)
[2019-07-03] MEDS ORDERED: CARBOHYDRATES FOR HYPOGLYCEMIA PO PRN (09:45)
[2019-07-03] MEDS ORDERED: GLUCOSE 40% GEL 15 GM TUBE PO PRN (09:45)
[2019-07-03] MEDS ORDERED: GLUCOSE 10 TABS/TUBE PO PRN (09:45)
--- NOTE | 2019-07-03 09:57 | Pharmacy Report ---
Glycemic Control Consultation - Date of Service July 03, 2019 - Scope Scope: Glycemic Pharmacist consulted by Dr Alford on 07/03/19 for glycemic control and to write orders per [facility] inpatient glycemic control protocol - Objective Weight: 112.8 kg Accuchecks BSG (last 24hrs): 07/02/19 07/03/19 07/03/19 22:18 05:25 09:19 Glucose 161 H 291 H POC Glucose 391 H* 07/03/19 09:19 Glucose POC Glucose 395 H* Laboratory Data (last 24hrs): 07/02/19 07/03/19 22:18 05:25 Potassium 2.6 L 2.9 L Carbon Dioxide 41 H* 41 H* Anion Gap 13.0 H 6.0 Creatinine 1.64 H 1.71 H Est Cr Clr Drug Dosing 49.8 46.8 - Recent Pertinent Medications Outpatient Anti-diabetic Regimen: * Glimepiride 2mg PO daily * Metformin 500mg PO BID * A1c = 8% 05/25/19 Risk Factors for Insulin Resistance: * Steroids: Solu-medrol 125mg IV x 1 last night, then 40mg IV daily started today * Infection: IV Zosyn + Levaquin * Diet: Regular --> change to type 2 DM - Assessment & Plan Assessment & Plan: ASSESSMENT: * 74 year old male admitted with acute on chronic hypercapnic respiratory failure, hx lung cancer, now with steroid induced hyperglycemia. Pt known to pharmacy glycemic service. * Pt is maintained on oral antidiabetic agents as an outpatient * Oral agents are not recommended for inpatient use d/t drug interactions, changing PO intake, and difficulty titrating for acute hyper/hypoglycemia. ADA recommends re-initiating outpatient oral agents 1-2 days prior to discharge if/when appropriate if they were held on admission. * Patient started glimepiride since last admission. * Will hold oral agents for admission and utilize SQ basal bolus insulin regimen which is the recommended regimen for inpatient glycemic control. * Will give patient NPH to cover steroid induced hyperglycemia and start with CF/CR from May admission. * Ordered regular diet - changed to carb consistent Type 2 DM. PLAN FOR INPATIENT GLYCEMIC CONTROL: * Holding outpatient oral diabetes medications * Basal insulin * NPH 34 (0.3units/kg) units SQ daily with IV solu-medrol * Bolus insulin * NovoLog per scale ACHS or Q6hrs while NPO * Goal Range: Low 110 mg/dL - High 140 mg/dL * Correction Factor: 18 mg/dL/unit * Nutritional / Prandial insulin per carb ratio of 1 unit per 6 grams CHO consumed * Please note that the plan above was derived based on current level of insulin resistance and hospital stress. These recommendations are appropriate for inpatient admission only. Plan of care upon discharge will need to be reassessed to avoid potential outpatient hypo/hyperglycemia. Thank you.
[2019-07-03] MEDS: INSULIN ASPART 100 UNITS/ML 3 ML PEN SC SCH ×4 (10:01→21:26)
[2019-07-03] MEDS: INSULIN HUMAN NPH SC SCH (10:02)
[2019-07-03] MEDS: POTASSIUM CHLORIDE 20 MEQ TABCR PO SCH ×2 (11:35→19:41)
--- NOTE | 2019-07-03 14:17 | Electrocardiogram Report ---
Test Reason : Blood Pressure : / mmHG Vent. Rate : 103 BPM Atrial Rate : 103 BPM P-R Int : 180 ms QRS Dur : 070 ms QT Int : 398 ms P-R-T Axes : 068 043 015 degrees QTc Int : 521 ms Poor data quality, interpretation may be adversely affected Sinus tachycardia Nonspecific ST abnormality Prolonged QT Abnormal ECG When compared with ECG of 25-MAY-2019 07:46, ST now depressed in Anterior leads QT has lengthened Confirmed by Jay Lantigua ([id number]) on 07/03/2019 2:16:28 PM Referred By: REFERRED SELF Confirmed By:Jay Lantigua
[2019-07-03 18:17] LABS: Appearance Urine Cloudy (Clear); Bacteria Urine Automated Negative (Negative); Bilirubin Urine Negative (Negative); Blood Urine 3+ (Negative); Color Urine Yellow; Epithelial Cell Urine Auto >30 /lpf (0-5); Glucose Urine UA Negative (Negative); Ketones Urine Trace (Negative); Leukocyte Esterase Urine 1+ (Negative); Nitrite Urine Negative (Negative); Protein Urine 1+ (Negative); RBC Urine Automated >30 /hpf (0-4); Specific Gravity Urine 1.021 (1.000-1.030); Urobilinogen Urine Negative (Negative)
[2019-07-03] MEDS: AMLODIPINE BESYLATE 5 MG TAB PO SCH (19:40)
[2019-07-03] MEDS: TERAZOSIN HCL 1 MG CAP PO SCH (19:40)
[2019-07-03] MEDS: AMOXICILLIN/CLAVULANATE 875 MG TAB PO SCH (19:43)
[2019-07-04] MEDS: LEVALBUTEROL HCL 1.25 MG/3 ML NEB NEB SCH ×4 (01:04→19:30)
[2019-07-04] MEDS: AZELASTINE~ORDER AWAITING ACTION SCH ×2 (01:08→09:25)
[2019-07-04] MEDS: METHADONE HCL 10 MG TAB PO SCH ×4 (05:46→22:25)
[2019-07-04] MEDS: AMOXICILLIN/CLAVULANATE 875 MG TAB PO SCH ×2 (09:17→17:41)
[2019-07-04] MEDS: HEPARIN SOD 5,000 UNIT/0.5 ML VIAL SQ SCH ×2 (09:17→21:18)
[2019-07-04] MEDS: CHOLECALCIFEROL (VITAMIN D) 400 UNITS TABLET PO SCH (09:18)
[2019-07-04] MEDS: FINASTERIDE 5 MG TAB PO SCH (09:18)
[2019-07-04] MEDS: CETIRIZINE HCL 10 MG TABLET PO SCH (09:18)
[2019-07-04] MEDS: PYRIDOXINE HCL 50 MG TAB PO SCH (09:18)
[2019-07-04] MEDS: PANTOprazole 40 MG TAB PO SCH (09:18)
[2019-07-04] MEDS: MAGNESIUM OXIDE 400 MG TAB PO SCH ×2 (09:18→21:15)
[2019-07-04] MEDS: CYANOCOBALAMIN (VITAMIN B-12) 100 MCG TABLET PO SCH (09:19)
[2019-07-04] MEDS: SENNA 8.6 MG TAB PO SCH ×2 (09:20→21:15)
[2019-07-04] MEDS: POTASSIUM CHLORIDE 20 MEQ TABCR PO SCH ×2 (09:20→21:14)
[2019-07-04] MEDS: methylPREDNISolone 40 MG in SYRINGE 0 ML IV SCH (09:21)
[2019-07-04] MEDS: FLUTICASONE/VILANTEROL 100/25MCG 14 PUFFS/INHALER INH SCH (09:21)
[2019-07-04] MEDS: UMECLIDINIUM BROMIDE 62.5MCG/BLISTER 7 PUFFS/INHALER INH SCH (09:21)
[2019-07-04] MEDS: DOCUSATE SODIUM 100 MG CAP PO SCH ×2 (09:25→21:27)
[2019-07-04] MEDS: INSULIN ASPART 100 UNITS/ML 3 ML PEN SC SCH ×4 (09:26→21:19)
[2019-07-04] MEDS: INSULIN HUMAN NPH SC SCH (09:27)
[2019-07-04] MEDS: DICLOFENAC SOD 1% GEL 100 GM TUBE EXT SCH ×2 (09:39→21:15)
--- NOTE | 2019-07-04 09:47 | Hospitalist Progress Note ---
Date of Service July 04, 2019 Assessment & Plan (1) Acute and chronic respiratory failure: downgrade to medical floor today, feeling much better but not back to baseline continue Levaquin and Zosyn for now continue Solu Medrol continue Duoneb PRN discussed with RN with home hospice, the patient NEEDS home care givers they cannot provide enough care, he is non-compliant with medications, CPAP at home he still wishes to be full code, they have been discussing this with him we will work to address it tomorrow (2) Acute exacerbation of chronic obstructive pulmonary disease: improving, no wheezing or distress on exam has a cough, some sputum production (3) Morbid obesity with BMI of 40.0-44.9, adult: Life style modifications however given his end stage lung disease and cancer, it may be difficult. (4) Hypokalemia: replaced, will repeat tomorrow (5) Non-small cell carcinoma of left lung: F/U with Dr. Boykin as an outpatient. 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 Admission and Anticipated Discharge Date Admission Date: July 02, 2019 Subjective patient feels better overall since time of admission breathing better, coughing less, no fever eating well, urinating less off his Lasix, moved bowels two days ago he says he does not feel ready to go home has edema in his legs bilaterally, pitting home staging specialist in the room, they feel he needs [facility] can be [facility] reviewed chart, labs reviewed notes from previous admission, including discharge summary and subsequent pulmonary visit Review of Systems Review of Systems: All systems reviewed & are unremarkable except as noted in HPI & below Constitutional: + fatigue and + weakness; no fever Respiratory: + cough, + dyspnea and + dyspnea on exertion; no wheezing Cardiovascular: + edema; no chest pain Gastrointestinal: no abdominal pain, no nausea, no vomiting and no constipation Physical Exam Constitutional: WD/WN, vitals as above Eyes: PERRL, conjunctivae normal, anicteric sclerae ENMT: external ear and nose normal, oropharynx normal Neck: trachea midline, no thyromegaly Respiratory: normal respiratory effort and + cough; no respiratory distress Auscultation: + diminished lung sounds; no rales, no rhonchi and no wheezes Cardiovascular: Rate/Rhythm: regular rate and regular rhythm Heart Sounds: normal S1 and normal S2; no murmur Extremities: + edema (Pitting bilaterally) Gastrointestinal (Abdomen): normal bowel sounds, soft, nontender, no hepatosplenomegaly Musculoskeletal: no cyanosis or clubbing, extremities motor strength 5/5 Skin: no rashes, warm and dry Neurologic: patellar DTR's 2+ bilat, sensation intact and PERRL, EOMI, accommodation nl, no face palsy, no dysarthria Psychiatric: A+Ox3, euthymic affect Lymphatic: no cervical or axillary lymphadenopathy Results & Data ([facility]) Vital Signs (Past 12 Hours) Vital Signs Temp Pulse Pulse Resp BP Pulse Ox 07/04/19 07:53 36.3 C L 81 24 116/69 98 07/04/19 07:10 76 18 98 07/04/19 04:00 36.8 C 80 23 128/75 93 07/04/19 02:36 77 18 96 07/04/19 01:18 73 16 94 07/04/19 01:04 73 16 94 07/03/19 23:10 36.3 C L 88 20 120/77 94 Laboratory Results Laboratory Results - last 24 hr 07/03/19 07/03/19 07/03/19 11:42 16:21 18:06 POC Glucose 227 H 133 H Urine Color Yellow Urine Appearance Cloudy A Urine pH 5.0 Ur Specific [place] 1.021 Urine Protein 1+ H Urine Glucose (UA) Negative Urine Ketones Trace H Urine Blood 3+ H Urine Nitrite Negative Urine Bilirubin Negative Urine Urobilinogen Negative Ur Leukocyte Esterase 1+ H Urine WBC (Auto) 10-30 H Urine RBC (Auto) >30 H U Hyaline Cast (Auto) 1-5 U Epithel Cells (Auto) >30 H Urine Bacteria (Auto) Negative 07/03/19 07/04/19 20:13 07:10 POC Glucose 279 H 176 H Urine Color Urine Appearance Urine pH Ur Specific [place] Urine Protein Urine Glucose (UA) Urine Ketones Urine Blood Urine Nitrite Urine Bilirubin Urine Urobilinogen Ur Leukocyte Esterase Urine WBC (Auto) Urine RBC (Auto) U Hyaline Cast (Auto) U Epithel Cells (Auto) Urine Bacteria (Auto) Medications Administered Current Inpatient Medications Amlodipine Besylate (Norvasc) 5 mg PO HS [facility] Stop: 08/02/19 20:59 Last Admin: 07/03/19 19:40 Dose: 5 mg Documented by: Amoxicillin/Clavulanate Potassium (Augmentin 875mg) 1 tab PO BIDM [facility] Stop: 07/10/19 18:59 Last Admin: 07/04/19 09:17 Dose: 1 tab Documented by: Cetirizine [facility] ([facility]) [facility] Stop: 08/02/19 08:59 Last Admin: 07/04/19 09:18 Dose: 5 mg Documented by: Cyanocobalamin (Vitamin B-12) 100 mcg PO QAM [facility] Stop: 08/02/19 08:59 Last Admin: 07/04/19 09:19 Dose: 100 mcg Documented by: Dextrose (Dextrose 50%) 25 - 50 ml IV UD PRN; Protocol PRN Reason: Hypoglycemia Protocol Stop: 08/02/19 09:44 Diclofenac Sodium (Voltaren 1% Top) 2 gm EXT Q12 [facility] Stop: 08/03/19 08:59 Last Admin: 07/04/19 09:39 Dose: 2 gm Documented by: Docusate Sodium (Colace) 100 mg PO BID [facility] Stop: 08/02/19 08:59 Last Admin: 07/04/19 09:25 Dose: 100 mg Documented by: Finasteride (Proscar) 5 mg PO QAM [facility] Stop: 08/02/19 08:59 Last Admin: 07/04/19 09:18 Dose: 5 mg Documented by: Fluticasone/Vilanterol (Breo Ellipta 100/25 Mcg Inh) 1 puffs INH DAILY [facility] Stop: 08/02/19 01:29 Last Admin: 07/04/19 09:21 Dose: 1 puffs Documented by: Glucagon (Glucagen) 1 mg IM UD PRN; Protocol PRN Reason: Hypoglycemia Protocol Stop: 08/02/19 09:44 Glucose (Glucose 40%) 15 - 30 gm PO UD PRN; Protocol PRN Reason: Hypoglycemia Protocol Stop: 08/02/19 09:44 Glucose (Dex4 Glucose) 4 - 8 tabs PO UD PRN; Protocol PRN Reason: Hypoglycemia Protocol Stop: 08/02/19 09:44 Heparin Sodium (Porcine) (Heparin Sodium (Porcine)) 5,000 units SQ Q12 [facility] Stop: 08/02/19 08:59 Last Admin: 07/04/19 09:17 Dose: 5,000 units Documented by: Methylprednisolone 40 mg/ (Syringe) 0.64 mls @ 1.5 mls/min IV DAILY [facility] Stop: 08/02/19 08:59 Last Admin: 07/04/19 09:21 Dose: 1.5 mls/min Documented by: Insulin Aspart (Novolog Flexpen) 0 units SC ACHS [facility]; Protocol Stop: 08/02/19 09:59 Last Admin: 07/04/19 09:26 Dose: 16 units Documented by: Insulin Human NPH (Novolin N Nph) 34 units SC DAILY [facility]; Protocol Stop: 08/02/19 09:59 Last Admin: 07/04/19 09:27 Dose: 34 units Documented by: Levalbuterol HCl (Xopenex 1.25mg/3ml Neb) 1.25 mg NEB Q6R [facility] Stop: 08/02/19 06:59 Last Admin: 07/04/19 07:08 Dose: 1.25 mg Documented by: Levofloxacin (Levaquin) 750 mg PO Q48H [facility] Stop: 07/12/19 10:59 Magnesium Oxide (Mag-Ox) 400 mg PO BID [facility] Stop: 08/02/19 08:59 Last Admin: 07/04/19 09:18 Dose: 400 mg Documented by: Methadone HCl (Dolophine) 10 mg PO 0500,1100,1700,2300 [facility] Stop: 07/18/19 05:44 Last Admin: 07/04/19 05:46 Dose: 10 mg Documented by: Metolazone (Zaroxolyn) 5 mg PO WeFr@0730 [facility] Stop: 08/05/19 07:29 Miscellaneous (Order Awaiting Action) 1 ea N/A QS [facility] Stop: 08/02/19 07:59 Last Admin: 07/04/19 09:25 Dose: Not Given Documented by: Miscellaneous (Carbohydrates For Hypoglycemia) 15 - 30 gm PO UD PRN PRN Reason: Hypoglycemia Treatment Stop: 08/02/19 09:44 Miscellaneous Information (Consult Glycemic Management Pharmacy) 1 ea N/A UD [facility] Stop: 08/02/19 09:36 Pantoprazole Sodium (Protonix) 40 mg PO QAM [facility] Stop: 08/02/19 08:59 Last Admin: 07/04/19 09:18 Dose: 40 mg Documented by: Potassium Chloride (Klor-Con M20) 40 meq PO BID [facility] Stop: 08/02/19 10:44 Last Admin: 07/04/19 09:20 Dose: 40 meq Documented by: Pyridoxine HCl (Vitamin B-6) 100 mg PO QAM [facility] Stop: 08/02/19 08:59 Last Admin: 07/04/19 09:18 Dose: 100 mg Documented by: Sennosides (Senokot) 17.2 mg PO BID [facility] Stop: 08/02/19 08:59 Last Admin: 07/04/19 09:20 Dose: 17.2 mg Documented by: Sodium Chloride ([place] Nasal) 1 sprays NA Q4H PRN PRN Reason: nasal congestion Stop: 08/01/19 23:39 Terazosin HCl (Hytrin) 2 mg PO HS [facility] Stop: 08/02/19 20:59 Last Admin: 07/03/19 19:40 Dose: 2 mg Documented by: Umeclidinium [place] (Incruse Ellipta) 1 puffs INH [facility] Stop: 08/02/19 08:59 Last Admin: 07/04/19 09:21 Dose: 1 puffs Documented by: Vitamin D (Vitamin D3) 400 units PO QAM [facility] Stop: 08/02/19 08:59 Last Admin: 07/04/19 09:18 Dose: 400 units Documented by: PG Care Time/CCT Total # of Minutes Spent Total Time Spent with Patient: Total time spent is greater than 50% in coordination of care (as documented) at patient's floor/unit and/or counseling patient: Coding Level of Care Code 42556 Subseq Hosp Care Lvl 3 Diagnoses Acute and chronic respiratory failure J96.20 Acute exacerbation of chronic obstructive pulmonary disease J44.1 Morbid obesity with BMI of 40.0-44.9, adult E66.01; Z68.41 Hypokalemia E87.6 Non-small cell carcinoma of left lung C34.92 Edema R60.9 Edema type: unspecified DVT prophylaxis Z29.9 (1) Edema Edema type: unspecified Qualified Code(s): R60.9 - Edema, unspecified
--- NOTE | 2019-07-04 13:17 | Pharmacy Report ---
Glycemic Control Progress Note - Date of Service July 04, 2019 - Scope Glycemic Pharmacist consulted for glycemic control to write orders per [facility] inpatient glycemic control protocol. - Objective Accuchecks BSG(last 24 hours):: 07/03/19 07/03/19 07/04/19 16:21 20:13 07:10 POC Glucose 133 H 279 H 176 H 07/04/19 11:48 POC Glucose 225 H - Recent Pertinent Medications The patient is currently receiving: * Basal insulin: NPH 34 units in the morning * Correctional Insulin: Novolog Correction per scale ACHS Goal Range: Low 110 mg/dL - High 140 mg/dL Correction Factor: 18 mg/dL/unit * Prandial insulin: Per carb ratio of 1 unit per 6 grams CHO consumed - Outpatient Anti-Diabetic Meds glimepiride 2 mg daily metformin 500 mg BIDM - Assessment & Plan ASSESSMENT: * See progress note from 07/03/2019 for more background info, in short: * Pt receiving SQ basal bolus insulin regimen for hyperglycemia secondary to baseline DM (outpatient regimen on hold),stress/infection (respiratory infection on Augmentin), and Solu-Medrol 40 mg IV daily. * Patient is currently receiving an average of 81 units of insulin per day * 34 units of basal insulin * 47 units of prandial/correctional insulin * BSGs ranging 133 - 591 mg/dl over the past 24hrs * Changes needed to insulin regimen: * AM Fasting BSG = 176 mg/dl. This is slightly above goal range for patient based on inpatient targets and co-morbidities. Will add second dose of NPH at dinnertime to continue coverage. Will give half of the AM dose or 15 units. * Post-prandial BSGs are reasonably controlled and expect to see better control with addition of second NPH dose. * Total daily dose = ? units. Expect TDD to change with changing steroids. PLAN FOR INPATIENT GLYCEMIC CONTROL: * Adding NPH to 34 units SQ in the morning and 15 units in the PM * Continuing correction factor of 18 mg/dl/unit * Continuing carb ratio of 1 unit per 6 grams CHO consumed * Continuing goal range of Low 110 mg/dL - High 140 mg/dL * Please note that the plan above was derived based on current level of insulin resistance and hospital stress. These recommendations are appropriate for inpatient admission only. Plan of care upon discharge will need to be reassessed to avoid potential outpatient hypo/hyperglycemia. Thank you.
[2019-07-04] MEDS: FUROSEMIDE 80 MG TAB PO SCH (14:18)
[2019-07-04] MEDS ORDERED: INSULIN HUMAN NPH SC SCH ×2 (16:30)
[2019-07-04] MEDS: TERAZOSIN HCL 1 MG CAP PO SCH (21:14)
[2019-07-04] MEDS: AMLODIPINE BESYLATE 5 MG TAB PO SCH (21:15)
[2019-07-05] MEDS: LEVALBUTEROL HCL 1.25 MG/3 ML NEB NEB SCH ×4 (01:17→19:16)
[2019-07-05] MEDS: METHADONE HCL 10 MG TAB PO SCH ×4 (05:03→22:22)
[2019-07-05] MEDS: DICLOFENAC SOD 1% GEL 100 GM TUBE EXT SCH ×2 (07:53→20:52)
[2019-07-05] MEDS: CHOLECALCIFEROL (VITAMIN D) 400 UNITS TABLET PO SCH (07:57)
[2019-07-05] MEDS: CETIRIZINE HCL 10 MG TABLET PO SCH (07:57)
[2019-07-05] MEDS: AMOXICILLIN/CLAVULANATE 875 MG TAB PO SCH ×2 (07:57→17:19)
[2019-07-05] MEDS: MAGNESIUM OXIDE 400 MG TAB PO SCH ×2 (07:58→20:53)
[2019-07-05] MEDS: SENNA 8.6 MG TAB PO SCH ×2 (07:58→20:51)
[2019-07-05] MEDS: PYRIDOXINE HCL 50 MG TAB PO SCH (07:58)
[2019-07-05] MEDS: CYANOCOBALAMIN (VITAMIN B-12) 100 MCG TABLET PO SCH (07:58)
[2019-07-05] MEDS: POTASSIUM CHLORIDE 20 MEQ TABCR PO SCH ×2 (07:59→20:53)
[2019-07-05] MEDS: FUROSEMIDE 80 MG TAB PO SCH ×2 (07:59→17:20)
[2019-07-05] MEDS: PANTOprazole 40 MG TAB PO SCH (07:59)
[2019-07-05] MEDS: FINASTERIDE 5 MG TAB PO SCH (07:59)
[2019-07-05] MEDS: UMECLIDINIUM BROMIDE 62.5MCG/BLISTER 7 PUFFS/INHALER INH SCH (08:00)
[2019-07-05] MEDS: FLUTICASONE/VILANTEROL 100/25MCG 14 PUFFS/INHALER INH SCH (08:00)
[2019-07-05] MEDS: DOCUSATE SODIUM 100 MG CAP PO SCH ×2 (09:00→21:16)
[2019-07-05] MEDS: methylPREDNISolone 40 MG in SYRINGE 0 ML IV SCH (09:00)
[2019-07-05] MEDS: HEPARIN SOD 5,000 UNIT/0.5 ML VIAL SQ SCH ×2 (09:00→21:17)
[2019-07-05] MEDS: INSULIN ASPART 100 UNITS/ML 3 ML PEN SC SCH ×4 (09:02→21:18)
[2019-07-05] MEDS: INSULIN HUMAN NPH SC SCH (09:04)
[2019-07-05] MEDS: levoFLOXacin 750 MG TAB PO SCH (11:49)
--- NOTE | 2019-07-05 15:21 | Pharmacy Report ---
Pharmacy Glycemic Short Note 2 - Date of Service July 05, 2019 - Glycemic Short BSG Results (Last 24 hours): 07/04/19 07/04/19 07/05/19 17:15 20:41 08:18 POC Glucose 124 H 213 H 118 H 07/05/19 12:19 POC Glucose 154 H OUTPATIENT ANTIDIABETIC REGIMEN: * Metformin * Glimepiride ASSESSMENT: * Steroids tapering slightly starting tomorrow. * Will decrease NPH administered in AM * Will maintain current CHO ratio as trend noted last two days where lunch and HS BSG were >180 mg/dL PLAN FOR INPATIENT GLYCEMIC CONTROL: * Hold outpatient oral diabetes medications * Basal insulin * Insulin NPH 20-25 units SQ qAM depending on BSG * Bolus insulin * NovoLog per scale ACHS or Q6hrs while NPO * Goal Range: Low 110 mg/dL - High 140 mg/dL * Correction Factor: 18 mg/dL/unit * Nutritional / Prandial insulin per carb ratio of 1 unit per 6 grams CHO consumed
--- NOTE | 2019-07-05 15:50 | Hospitalist Progress Note ---
Date of Service July 05, 2019 Assessment & Plan (1) Acute and chronic respiratory failure: feeling much better but not back to baseline continue Levaquin and Augmentin for now changed Solu Medrol to Prednisone continue Duoneb PRN discussed with RN with home hospice, the patient NEEDS home care givers they cannot provide enough care, he is non-compliant with medications, CPAP at home he still wishes to be full code, they have been discussing this with him some of his dyspnea likely due to volume overload, increase Lasix to BID today, watch for response (2) Acute exacerbation of chronic obstructive pulmonary disease: improving, no wheezing or distress on exam has a cough, some sputum production Prednisone 40mg daily, antibiotics x 7 days, nebs (3) Morbid obesity with BMI of 40.0-44.9, adult: Life style modifications however given his end stage lung disease and cancer, it may be difficult. (4) Hypokalemia: repleted check BMP in the morning (5) Non-small cell carcinoma of left lung: F/U with Dr. Boykin as an outpatient. 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 (8) Constipation: will give a dose of Lactulose and watch for response Admission and Anticipated Discharge Date Admission Date: July 02, 2019 Anticipated date of discharge: 07/07/19 Subjective patient feeling a little better, breathing close to baseline still with edema in legs, more edema in right leg has a lot of distension, could have ascites his appetite is good had two small BM, he wants to have more of a BM, will give Lactulose no labs today discussed safe discharge plan, he is frustrated on hospice, says he does not get enough care reports that he had more care with [facility] he is angry and frustrated, does not want to keep coming back to the hospital we discussed that he will continue to decline clinically, there is no further treatment available for lung CA Review of Systems Review of Systems: All systems reviewed & are unremarkable except as noted in HPI & below Respiratory: + cough and + dyspnea on exertion; no dyspnea Cardiovascular: + edema; no chest pain Gastrointestinal: + bloating and + constipation; no abdominal pain, no nausea, no vomiting and no diarrhea/loose stools Physical Exam Constitutional: WD/WN, vitals as above Eyes: PERRL, conjunctivae normal, anicteric sclerae ENMT: external ear and nose normal, oropharynx normal Neck: trachea midline, no thyromegaly Respiratory: normal respiratory effort and + cough; no respiratory distress Auscultation: + diminished lung sounds; no rales, no rhonchi and no wheezes Cardiovascular: Rate/Rhythm: regular rate and regular rhythm Heart Sounds: normal S1 and normal S2; no murmur Extremities: + edema (Pitting bilaterally) Gastrointestinal (Abdomen): Inspection/Auscultation: + abdomen distended and normal bowel sounds Percussion/Palpation: abdomen soft and + ascites; abdomen nontender Musculoskeletal: no cyanosis or clubbing, extremities motor strength 5/5 Skin: no rashes, warm and dry Neurologic: patellar DTR's 2+ bilat, sensation intact and PERRL, EOMI, accommodation nl, no face palsy, no dysarthria Psychiatric: A+Ox3, euthymic affect Lymphatic: no cervical or axillary lymphadenopathy Results & Data ([facility]) Vital Signs (Past 12 Hours) Vital Signs Temp Pulse Resp BP Pulse Ox 07/05/19 15:24 36.4 C L 96 H 19 113/73 93 07/05/19 13:31 83 18 92 07/05/19 07:35 36.4 C L 82 18 111/71 98 07/05/19 07:24 96 H 18 98 Laboratory Results Laboratory Results - last 24 hr 07/05/19 07/05/19 07/05/19 08:18 12:19 16:49 POC Glucose 118 H 154 H 319 H* 07/05/19 07/05/19 16:50 20:24 POC Glucose 278 H 154 H Medications Administered Current Inpatient Medications Amlodipine Besylate (Norvasc) 5 mg PO HS [facility] Stop: 08/02/19 20:59 Last Admin: 07/05/19 20:52 Dose: 5 mg Documented by: Amoxicillin/Clavulanate Potassium (Augmentin 875mg) 1 tab PO BIDM [facility] Stop: 07/10/19 18:59 Last Admin: 07/05/19 17:19 Dose: 1 tab Documented by: Cetirizine HCl (Zyrtec) 5 mg PO QAM [facility] Stop: 08/02/19 08:59 Last Admin: 07/05/19 07:57 Dose: 5 mg Documented by: Cyanocobalamin (Vitamin B-12) 100 mcg PO QAM [facility] Stop: 08/02/19 08:59 Last Admin: 07/05/19 07:58 Dose: 100 mcg Documented by: Dextrose (Dextrose 50%) 25 - 50 ml IV UD PRN; Protocol PRN Reason: Hypoglycemia Protocol Stop: 08/02/19 09:44 Diclofenac Sodium (Voltaren 1% Top) 2 gm EXT Q12 [facility] Stop: 08/03/19 08:59 Last Admin: 07/05/19 20:52 Dose: 2 gm Documented by: Docusate Sodium (Colace) 100 mg PO BID [facility] Stop: 08/02/19 08:59 Last Admin: 07/05/19 21:16 Dose: 100 mg Documented by: Finasteride (Proscar) 5 mg PO QAM [facility] Stop: 08/02/19 08:59 Last Admin: 07/05/19 07:59 Dose: 5 mg Documented by: Fluticasone/Vilanterol (Breo Ellipta 100/25 Mcg Inh) 1 puffs INH DAILY [facility] Stop: 08/02/19 01:29 Last Admin: 07/05/19 08:00 Dose: 1 puffs Documented by: Furosemide (Lasix) 80 mg PO BID17 [facility] Stop: 08/04/19 16:59 Last Admin: 07/05/19 17:20 Dose: 80 mg Documented by: Glucagon (Glucagen) 1 mg IM UD PRN; Protocol PRN Reason: Hypoglycemia Protocol Stop: 08/02/19 09:44 Glucose (Glucose 40%) 15 - 30 gm PO UD PRN; Protocol PRN Reason: Hypoglycemia Protocol Stop: 08/02/19 09:44 Glucose (Dex4 Glucose) 4 - 8 tabs PO UD PRN; Protocol PRN Reason: Hypoglycemia Protocol Stop: 08/02/19 09:44 Heparin Sodium (Porcine) (Heparin Sodium (Porcine)) 5,000 units SQ Q12 [facility] Stop: 08/02/19 08:59 Last Admin: 07/05/19 21:17 Dose: 5,000 units Documented by: Insulin Aspart (Novolog Flexpen) 0 units SC BID@1130,2100 [facility]; Protocol Stop: 08/04/19 11:29 Last Admin: 07/05/19 21:17 Dose: Not Given Documented by: Insulin Aspart (Novolog Flexpen) 0 units SC TODAY@0200 [facility]; Protocol Stop: 07/06/19 02:01 Insulin Aspart (Novolog Flexpen) 0 units SC ACHS [facility]; Protocol Stop: 08/04/19 20:59 Last Admin: 07/05/19 21:18 Dose: 1 units Documented by: Insulin Human NPH (Novolin N Nph) 0 units SC DAILY [facility]; Protocol Stop: 08/05/19 08:59 Levalbuterol HCl (Xopenex 1.25mg/3ml Neb) 1.25 mg NEB Q6R [facility] Stop: 08/02/19 06:59 Last Admin: 07/05/19 19:16 Dose: 1.25 mg Documented by: Levofloxacin (Levaquin) 750 mg PO Q48H [facility] Stop: 07/12/19 10:59 Last Admin: 07/05/19 11:49 Dose: 750 mg Documented by: Magnesium Oxide (Mag-Ox) 400 mg PO BID [facility] Stop: 08/02/19 08:59 Last Admin: 07/05/19 20:53 Dose: 400 mg Documented by: Methadone HCl (Dolophine) 10 mg PO 0500,1100,1700,2300 [facility] Stop: 07/18/19 05:44 Last Admin: 07/05/19 17:19 Dose: 10 mg Documented by: Metolazone (Zaroxolyn) 5 mg PO WeFr@0730 [facility] Stop: 08/05/19 07:29 Miscellaneous (Carbohydrates For Hypoglycemia) 15 - 30 gm PO UD PRN PRN Reason: Hypoglycemia Treatment Stop: 08/02/19 09:44 Miscellaneous Information (Consult Glycemic Management Pharmacy) 1 ea N/A UD [facility] Stop: 08/02/19 09:36 Pantoprazole Sodium (Protonix) 40 mg PO QAM [facility] Stop: 08/02/19 08:59 Last Admin: 07/05/19 07:59 Dose: 40 mg Documented by: Potassium Chloride (Klor-Con M20) 40 meq PO BID [facility] Stop: 08/02/19 10:44 Last Admin: 07/05/19 20:53 Dose: 40 meq Documented by: Prednisone (Prednisone) 40 mg PO QAM [facility] Stop: 08/05/19 08:59 Pyridoxine HCl (Vitamin B-6) 100 mg PO QAM [facility] Stop: 08/02/19 08:59 Last Admin: 07/05/19 07:58 Dose: 100 mg Documented by: Sennosides (Senokot) 17.2 mg PO BID [facility] Stop: 08/02/19 08:59 Last Admin: 07/05/19 20:51 Dose: 17.2 mg Documented by: Sodium Chloride ([place] Nasal) 1 sprays NA Q4H PRN PRN Reason: nasal congestion Stop: 08/01/19 23:39 Terazosin HCl (Hytrin) 2 mg PO HS [facility] Stop: 08/02/19 20:59 Last Admin: 07/05/19 20:54 Dose: 2 mg Documented by: Umeclidinium [place] (Incruse Ellipta) 1 puffs INH [facility] Stop: 08/02/19 08:59 Last Admin: 07/05/19 08:00 Dose: 1 puffs Documented by: Vitamin D (Vitamin D3) [facility]: 08/02/19 08:59 Last Admin: 07/05/19 07:57 Dose: 400 units Documented by: PG Care Time/CCT Total # of Minutes Spent Total Time Spent with Patient: Total time spent is greater than 50% in coordination of care (as documented) at patient's floor/unit and/or counseling patient: Coding Level of Care Code 29502 Subs Hosp Care [facility] 3 Diagnoses Acute and chronic respiratory failure J96.20 Acute exacerbation of chronic obstructive pulmonary disease J44.1 Morbid obesity with BMI of 40.0-44.9, adult E66.01; Z68.41 Hypokalemia E87.6 Non-small cell carcinoma of left lung C34.92 Edema R60.9 Edema type: unspecified DVT prophylaxis Z29.9 Constipation K59.00 (1) Edema Edema type: unspecified Qualified Code(s): R60.9 - Edema, unspecified
[2019-07-05] MEDS ORDERED: LACTULOSE SYRUP 20 GM/30 ML UDC PO ONE (16:00)
[2019-07-05] MEDS ORDERED: INSULIN ASPART 100 UNITS/ML 3 ML PEN SC SCH (16:30)
[2019-07-05] MEDS: AMLODIPINE BESYLATE 5 MG TAB PO SCH (20:52)
[2019-07-05] MEDS: TERAZOSIN HCL 1 MG CAP PO SCH (20:54)
[2019-07-06] MEDS: LEVALBUTEROL HCL 1.25 MG/3 ML NEB NEB SCH ×4 (01:37→19:18)
[2019-07-06] MEDS ORDERED: INSULIN ASPART 100 UNITS/ML 3 ML PEN SC ONE (02:00)
[2019-07-06] MEDS: METHADONE HCL 10 MG TAB PO SCH ×4 (05:22→22:24)
[2019-07-06] MEDS: FLUTICASONE/VILANTEROL 100/25MCG 14 PUFFS/INHALER INH SCH (08:09)
[2019-07-06] MEDS: UMECLIDINIUM BROMIDE 62.5MCG/BLISTER 7 PUFFS/INHALER INH SCH (08:09)
[2019-07-06] MEDS: DICLOFENAC SOD 1% GEL 100 GM TUBE EXT SCH ×2 (08:10→21:28)
[2019-07-06] MEDS: FINASTERIDE 5 MG TAB PO SCH (08:13)
[2019-07-06] MEDS: CETIRIZINE HCL 10 MG TABLET PO SCH (08:13)
[2019-07-06] MEDS: CHOLECALCIFEROL (VITAMIN D) 400 UNITS TABLET PO SCH (08:13)
[2019-07-06] MEDS: predniSONE 20 MG TAB PO SCH (08:14)
[2019-07-06] MEDS: PANTOprazole 40 MG TAB PO SCH (08:14)
[2019-07-06] MEDS: FUROSEMIDE 80 MG TAB PO SCH ×2 (08:14→17:17)
[2019-07-06] MEDS: POTASSIUM CHLORIDE 20 MEQ TABCR PO SCH (08:15)
[2019-07-06] MEDS: AMOXICILLIN/CLAVULANATE 875 MG TAB PO SCH (08:15)
[2019-07-06] MEDS: metOLazone 5 MG TABLET PO SCH (08:15)
[2019-07-06] MEDS: PYRIDOXINE HCL 50 MG TAB PO SCH (08:15)
[2019-07-06] MEDS: CYANOCOBALAMIN (VITAMIN B-12) 100 MCG TABLET PO SCH (08:15)
[2019-07-06] MEDS: MAGNESIUM OXIDE 400 MG TAB PO SCH ×2 (08:16→21:26)
[2019-07-06] MEDS: SENNA 8.6 MG TAB PO SCH ×2 (08:16→21:27)
[2019-07-06] MEDS: DOCUSATE SODIUM 100 MG CAP PO SCH ×2 (09:00→21:26)
[2019-07-06] MEDS: INSULIN ASPART 100 UNITS/ML 3 ML PEN SC SCH ×4 (09:00→21:29)
[2019-07-06] MEDS: HEPARIN SOD 5,000 UNIT/0.5 ML VIAL SQ SCH ×2 (09:01→21:28)
[2019-07-06] MEDS: INSULIN HUMAN NPH SC SCH (09:02)
--- NOTE | 2019-07-06 12:30 | Pharmacy Report ---
Pharmacy Glycemic Short Note 2 - Date of Service July 06, 2019 - Glycemic Short BSG Results (Last 24 hours): 07/05/19 07/05/19 07/05/19 16:49 16:50 20:24 POC Glucose 319 H* 278 H 154 H 07/06/19 07/06/19 07/06/19 01:39 08:17 12:14 POC Glucose 79 96 132 H OUTPATIENT ANTIDIABETIC REGIMEN: * Metformin * Glimepiride ASSESSMENT: * Steroids tapered slightly today - AM NPH dose was reduced significantly, especially given lower BSG of 79 mg/dL overnight * Will not loosen CHO ratio despite steroid taper as trend noted where some post-prandial BSG's >180 mg/dL recently. Current regimen likely to be more effective given steroid taper. PLAN FOR INPATIENT GLYCEMIC CONTROL: * Hold outpatient oral diabetes medications * Basal insulin * Insulin NPH 15-25 units SQ qAM depending on BSG * Bolus insulin * NovoLog per scale ACHS or Q6hrs while NPO * Goal Range: Low 110 mg/dL - High 140 mg/dL * Correction Factor: 18 mg/dL/unit * Nutritional / Prandial insulin per carb ratio of 1 unit per 6 grams CHO consumed
--- NOTE | 2019-07-06 12:36 | Hospitalist Progress Note ---
Date of Service July 06, 2019 Assessment & Plan (1) Acute and chronic respiratory failure: feeling much better but not back to baseline continue Levaquin, stop Augmentin changed Solu Medrol to Prednisone 40mg daily (he never goes below 30mg due to arthritis) continue Duoneb PRN discussed with RN with home hospice, the patient NEEDS home care givers they cannot provide enough care, he is non-compliant with medications, CPAP at home he still wishes to be full code, they have been discussing this with him some of his dyspnea likely due to volume overload, continue Lasix to BID to achieve a dry weight (2) Acute exacerbation of chronic obstructive pulmonary disease: improving, no wheezing or distress on exam has a cough, no sputum today Prednisone 40mg daily, antibiotics x 7 days, nebs (3) Morbid obesity with BMI of 40.0-44.9, adult: Life style modifications however given his end stage lung disease and cancer, it may be difficult. (4) Hypokalemia: repleted K is normal today, continue BID replacement with the Lasix BID (5) Non-small cell carcinoma of left lung: F/U with Dr. Boykin as an outpatient. 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 (8) Constipation: will give a dose of Lactulose and watch for response Admission and Anticipated Discharge Date Admission Date: July 02, 2019 Anticipated date of discharge: 07/07/19 Subjective patient breathing better, feels like he has less edema he definitely feels like he is responding to Lasix admitted that he is drinking a lot, discussed that he will be on a fluid restriction will check daily weights eating well, minimal cough discussed with CM, [facility] has [facility] them labs show Cr is 1.6, K is normal constipation resolved, had three BM last night after Lactulose Review of Systems Review of Systems: All systems reviewed & are unremarkable except as noted in HPI & below Respiratory: + cough and + dyspnea on exertion Cardiovascular: + edema Gastrointestinal: no abdominal pain, no nausea, no vomiting, no constipation and no diarrhea/loose stools Physical Exam Constitutional: WD/WN, vitals as above Eyes: PERRL, conjunctivae normal, anicteric sclerae ENMT: external ear and nose normal, oropharynx normal Neck: trachea midline, no thyromegaly Respiratory: normal respiratory effort and + cough; no respiratory distress Auscultation: + diminished lung sounds; no rales, no rhonchi and no wheezes Cardiovascular: Rate/Rhythm: regular rate and regular rhythm Heart Sounds: normal S1 and normal S2; no murmur Extremities: + edema (Pitting bilaterally) Gastrointestinal (Abdomen): normal bowel sounds, soft, nontender, no hepatosplenomegaly Inspection/Auscultation: + abdomen distended and normal bowel sounds Percussion/Palpation: abdomen soft and + ascites; abdomen nontender Musculoskeletal: no cyanosis or clubbing, extremities motor strength 5/5 Skin: no rashes, warm and dry Neurologic: patellar DTR's 2+ bilat, sensation intact and PERRL, EOMI, accommodation nl, no face palsy, no dysarthria Psychiatric: A+Ox3, euthymic affect Lymphatic: no cervical or axillary lymphadenopathy Results & Data ([facility]) Vital Signs (Past 12 Hours) Vital Signs Temp Pulse Resp BP Pulse Ox 07/06/19 07:35 81 18 93 07/06/19 07:20 36.5 C 86 18 121/70 97 07/06/19 01:39 90 16 98 Laboratory Results Laboratory Results - last 24 hr 07/05/19 07/06/19 07/06/19 20:24 01:39 08:17 WBC RBC Hgb Hct MCV MCH MCHC RDW Std Deviation RDW Coeff of James Plt Count MPV Immature Gran % (Auto) Neut % (Auto) Lymph % (Auto) [place] % (Auto) Eos % (Auto) Baso % (Auto) Immature Gran # (Auto) Neut # (Auto) Lymph # (Auto) [place] # (Auto) Eos # (Auto) Baso # (Auto) Absolute Nucleated RBC Nucleated RBC % (auto) Sodium Potassium Chloride Carbon Dioxide Anion Gap BUN Creatinine Est Cr Clr Drug Dosing Est GFR ( Amer) Est GFR (Non-Af Amer) BUN/Creatinine Ratio Glucose POC Glucose 154 H 79 96 Calcium 07/06/19 07/06/19 07/06/19 12:14 12:23 12:23 WBC 13.39 H RBC 3.75 L Hgb 11.8 L Hct 37.2 L MCV 99.2 MCH 31.5 MCHC 31.7 L RDW Std Deviation 57.3 H RDW Coeff of James 16.0 H Plt Count 174 MPV 9.8 Immature Gran % (Auto) 3.7 Neut % (Auto) 80.0 Lymph % (Auto) 9.7 [place] % (Auto) 6.2 Eos % (Auto) 0.2 Baso % (Auto) 0.2 Immature Gran # (Auto) 0.49 H Neut # (Auto) 10.71 H Lymph # (Auto) 1.30 [place] # (Auto) 0.83 H Eos # (Auto) 0.03 Baso # (Auto) 0.03 Absolute Nucleated RBC 0.06 H Nucleated RBC % (auto) 0.5 Sodium 137 Potassium 4.2 Chloride 95 L Carbon Dioxide 36 H Anion Gap 6.0 BUN 34 H Creatinine 1.63 H Est Cr Clr Drug Dosing 49.1 Est GFR ( Amer) 48.1 Est GFR (Non-Af Amer) 41.5 BUN/Creatinine Ratio 20.6 H Glucose 131 H POC Glucose 132 H Calcium 9.8 07/06/19 17:03 WBC RBC Hgb Hct MCV MCH MCHC RDW Std Deviation RDW Coeff of James Plt Count MPV Immature Gran % (Auto) Neut % (Auto) Lymph % (Auto) [place] % (Auto) Eos % (Auto) Baso % (Auto) Immature Gran # (Auto) Neut # (Auto) Lymph # (Auto) [place] # (Auto) Eos # (Auto) Baso # (Auto) Absolute Nucleated RBC Nucleated RBC % (auto) Sodium Potassium Chloride Carbon Dioxide Anion Gap BUN Creatinine Est Cr Clr Drug Dosing Est GFR ( Amer) Est GFR (Non-Af Amer) BUN/Creatinine Ratio Glucose POC Glucose 160 H Calcium Medications Administered Current Inpatient Medications Amlodipine Besylate (Norvasc) 5 mg PO HS [facility] Stop: 08/02/19 20:59 Last Admin: 07/05/19 20:52 Dose: 5 mg Documented by: Cetirizine HCl (Zyrtec) 5 mg PO QAM [facility] Stop: 08/02/19 08:59 Last Admin: 07/06/19 08:13 Dose: 5 mg Documented by: Cyanocobalamin (Vitamin B-12) 100 mcg PO QAM [facility] Stop: 08/02/19 08:59 Last Admin: 07/06/19 08:15 Dose: 100 mcg Documented by: Dextrose (Dextrose 50%) 25 - 50 ml IV UD PRN; Protocol PRN Reason: Hypoglycemia Protocol Stop: 08/02/19 09:44 Diclofenac Sodium (Voltaren 1% Top) 2 gm EXT Q12 [facility] Stop: 08/03/19 08:59 Last Admin: 07/06/19 08:10 Dose: 2 gm Documented by: Docusate Sodium (Colace) 100 mg PO BID [facility] Stop: 08/02/19 08:59 Last Admin: 07/06/19 09:00 Dose: 100 mg Documented by: Finasteride (Proscar) 5 mg PO QAM [facility] Stop: 08/02/19 08:59 Last Admin: 07/06/19 08:13 Dose: 5 mg Documented by: Fluticasone/Vilanterol (Breo Ellipta 100/25 Mcg Inh) 1 puffs INH DAILY [facility] Stop: 08/02/19 01:29 Last Admin: 07/06/19 08:09 Dose: 1 puffs Documented by: Furosemide (Lasix) 80 mg PO BID17 [facility] Stop: 08/04/19 16:59 Last Admin: 07/06/19 17:17 Dose: 80 mg Documented by: Glucagon (Glucagen) 1 mg IM UD PRN; Protocol PRN Reason: Hypoglycemia Protocol Stop: 08/02/19 09:44 Glucose (Glucose 40%) 15 - 30 gm PO UD PRN; Protocol PRN Reason: Hypoglycemia Protocol Stop: 08/02/19 09:44 Glucose (Dex4 Glucose) 4 - 8 tabs PO UD PRN; Protocol PRN Reason: Hypoglycemia Protocol Stop: 08/02/19 09:44 Heparin Sodium (Porcine) (Heparin Sodium (Porcine)) 5,000 units SQ Q12 [facility] Stop: 08/02/19 08:59 Last Admin: 07/06/19 09:01 Dose: 5,000 units Documented by: Insulin Aspart (Novolog Flexpen) 0 units SC ACHS [facility]; Protocol Stop: 08/04/19 20:59 Last Admin: 07/06/19 18:02 Dose: 12 units Documented by: Insulin Human NPH (Novolin N Nph) 0 units SC DAILY [facility]; Protocol Stop: 08/05/19 08:59 Last Admin: 07/06/19 09:02 Dose: 20 units Documented by: Levalbuterol HCl (Xopenex 1.25mg/3ml Neb) 1.25 mg NEB Q6R [facility] Stop: 08/02/19 06:59 Last Admin: 07/06/19 19:18 Dose: 1.25 mg Documented by: Levofloxacin (Levaquin) 750 mg PO Q48H [facility] Stop: 07/12/19 10:59 Last Admin: 07/05/19 11:49 Dose: 750 mg Documented by: Magnesium Oxide (Mag-Ox) 400 mg PO BID [facility] Stop: 08/02/19 08:59 Last Admin: 07/06/19 08:16 Dose: 400 mg Documented by: Methadone HCl (Dolophine) 10 mg PO 0500,1100,1700,2300 [facility] Stop: 07/18/19 05:44 Last Admin: 07/06/19 17:17 Dose: 10 mg Documented by: Metolazone (Zaroxolyn) 5 mg PO WeFr@0730 [facility] Stop: 08/05/19 07:29 Last Admin: 07/06/19 08:15 Dose: 5 mg Documented by: Miscellaneous (Carbohydrates For Hypoglycemia) 15 - 30 gm PO UD PRN PRN Reason: Hypoglycemia Treatment Stop: 08/02/19 09:44 Miscellaneous Information (Consult Glycemic Management Pharmacy) 1 ea N/A UD [facility] Stop: 08/02/19 09:36 Pantoprazole Sodium (Protonix) 40 mg PO QAM [facility] Stop: 08/02/19 08:59 Last Admin: 07/06/19 08:14 Dose: 40 mg Documented by: Potassium Chloride (Klor-Con M20) 40 meq PO BID [facility] Stop: 08/06/19 08:59 Prednisone (Prednisone) 40 mg PO QAM [facility] Stop: 08/05/19 08:59 Last Admin: 07/06/19 08:14 Dose: 40 mg Documented by: Pyridoxine HCl (Vitamin B-6) 100 mg PO QAM [facility] Stop: 08/02/19 08:59 Last Admin: 07/06/19 08:15 Dose: 100 mg Documented by: Sennosides (Senokot) 17.2 mg PO BID [facility] Stop: 08/02/19 08:59 Last Admin: 07/06/19 08:16 Dose: 17.2 mg Documented by: Sodium Chloride ([place] Nasal) 1 sprays NA Q4H PRN PRN Reason: nasal congestion Stop: 08/01/19 23:39 Terazosin HCl (Hytrin) 2 mg PO HS [facility] Stop: 08/02/19 20:59 Last Admin: 07/05/19 20:54 Dose: 2 mg Documented by: Umeclidinium [place] (Incruse Ellipta) 1 puffs INH QAM [facility] Stop: 08/02/19 08:59 Last Admin: 07/06/19 08:09 Dose: 1 puffs Documented by: Vitamin D (Vitamin D3) 400 units PO QAM [facility] Stop: 08/02/19 08:59 Last Admin: 07/06/19 08:13 Dose: 400 units Documented by: PG Care Time/CCT Total # of Minutes Spent Total Time Spent with Patient: Total time spent is greater than 50% in coordination of care (as documented) at patient's floor/unit and/or counseling patient: Coding Level of Care Code 91149 Subseq Hosp Care Lvl 3 Diagnoses Acute and chronic respiratory failure J96.20 Acute exacerbation of chronic obstructive pulmonary disease J44.1 Morbid obesity with BMI of 40.0-44.9, adult E66.01; Z68.41 Hypokalemia E87.6 Non-small cell carcinoma of left lung C34.92 Edema R60.9 Edema type: unspecified DVT prophylaxis Z29.9 Constipation K59.00 (1) Edema Edema type: unspecified Qualified Code(s): R60.9 - Edema, unspecified
[2019-07-06 12:38] LABS: Basophils # (auto) 0.03 K/uL (0-0.2); Basophils % (auto) 0.2 %; Eosinophils # (auto) 0.03 K/uL (0-0.5); Eosinophils % (auto) 0.2 %; Hematocrit (blood only) 37.2 % (42-52); Hemoglobin 11.8 g/dL (14.0-18.0); Immature Granulocytes # (auto) 0.49 K/uL (0.00-0.02); Immature Granulocytes % (auto) 3.7 %; Lymphocytes % (auto) 9.7 %; Mean Corpuscular Hemoglobin 31.5 pg (25-34); Mean Corpuscular Hgb Conc 31.7 g/dL (32-36); Mean Corpuscular Volume 99.2 fL (80-100); Mean Platelet Volume 9.8 fL (7.4-10.4); Monocytes # (auto) 0.83 K/uL (0.11-0.59); Monocytes % (auto) 6.2 %; Neutrophils # (auto) 10.71 K/uL (1.4-6.5); Nucleated RBC # (auto) 0.06 K/uL (0-0); Nucleated RBC % (auto) 0.5 %; Platelet Count 174 K/uL (130-400); RDW Standard Deviation 57.3 fL (36.4-46.3); Red Blood Count 3.75 M/uL (4.7-6.1); White Blood Count 13.39 K/uL (4.8-10.8)
[2019-07-06 13:08] LABS: BUN Creatinine Ratio 20.6 (10-20); Calcium 9.8 mg/dl (8.5-10.1); Creatinine Clr Calc Pharmacy 49.1 ml/min; Est GFR (African American) 48.1; Est GFR (Non-African American) 41.5; Potassium 4.2 mmol/L (3.5-5.1)
[2019-07-06] MEDS ORDERED: POTASSIUM CHLORIDE 20 MEQ TABCR PO SCH (14:00)
[2019-07-06] MEDS: TERAZOSIN HCL 1 MG CAP PO SCH (21:26)
[2019-07-06] MEDS: AMLODIPINE BESYLATE 5 MG TAB PO SCH (21:27)
[2019-07-07] MEDS: LEVALBUTEROL HCL 1.25 MG/3 ML NEB NEB SCH ×4 (00:36→19:52)
[2019-07-07] MEDS: METHADONE HCL 10 MG TAB PO SCH ×4 (05:24→22:48)
[2019-07-07] MEDS: UMECLIDINIUM BROMIDE 62.5MCG/BLISTER 7 PUFFS/INHALER INH SCH (07:55)
[2019-07-07] MEDS: FLUTICASONE/VILANTEROL 100/25MCG 14 PUFFS/INHALER INH SCH (07:55)
[2019-07-07] MEDS: DOCUSATE SODIUM 100 MG CAP PO SCH ×2 (07:59→20:37)
[2019-07-07] MEDS: SENNA 8.6 MG TAB PO SCH ×2 (08:00→20:34)
[2019-07-07] MEDS: POTASSIUM CHLORIDE 20 MEQ TABCR PO SCH ×2 (08:00→20:34)
[2019-07-07] MEDS: CHOLECALCIFEROL (VITAMIN D) 400 UNITS TABLET PO SCH (08:00)
[2019-07-07] MEDS: CETIRIZINE HCL 10 MG TABLET PO SCH (08:00)
[2019-07-07] MEDS: MAGNESIUM OXIDE 400 MG TAB PO SCH ×2 (08:00→20:33)
[2019-07-07] MEDS: PANTOprazole 40 MG TAB PO SCH (08:01)
[2019-07-07] MEDS: CYANOCOBALAMIN (VITAMIN B-12) 100 MCG TABLET PO SCH (08:01)
[2019-07-07] MEDS: predniSONE 20 MG TAB PO SCH (08:01)
[2019-07-07] MEDS: FUROSEMIDE 80 MG TAB PO SCH ×2 (08:01→16:39)
[2019-07-07] MEDS: PYRIDOXINE HCL 50 MG TAB PO SCH (08:02)
[2019-07-07] MEDS: FINASTERIDE 5 MG TAB PO SCH (08:02)
[2019-07-07] MEDS: DICLOFENAC SOD 1% GEL 100 GM TUBE EXT SCH ×2 (08:03→20:34)
[2019-07-07] MEDS: INSULIN ASPART 100 UNITS/ML 3 ML PEN SC SCH ×4 (09:20→20:39)
[2019-07-07] MEDS: INSULIN HUMAN NPH SC SCH (09:21)
[2019-07-07] MEDS: HEPARIN SOD 5,000 UNIT/0.5 ML VIAL SQ SCH ×2 (09:21→20:39)
[2019-07-07 09:41] LABS: BUN Creatinine Ratio 21.5 (10-20); Creatinine Clr Calc Pharmacy 52.9 ml/min; Est GFR (African American) 52.7; Est GFR (Non-African American) 45.5; Potassium 3.4 mmol/L (3.5-5.1)
--- NOTE | 2019-07-07 11:00 | Pharmacy Report ---
Pharmacy Glycemic Short Note 2 - Date of Service July 07, 2019 - Glycemic Short BSG Results (Last 24 hours): 07/06/19 07/06/19 07/06/19 12:14 12:23 17:03 Glucose 131 H POC Glucose 132 H 160 H 07/06/19 07/06/19 07/06/19 20:25 20:26 20:47 Glucose POC Glucose 65 L* 64 L* 78 07/07/19 07/07/19 08:20 08:47 Glucose 109 H POC Glucose 104 H OUTPATIENT ANTIDIABETIC REGIMEN: * Metformin * Glimepiride ASSESSMENT: * Moderately low BSGs (64mg/dL) yesterday @[facility] likely due to NovoLog given with dinner. Will slightly loosen correctional insulin. Reviewed chart, unsure if he was symptomatic. Prednisone 40mg QAM continues. Antibx narrowed to LVQ monotx. Diet continues. PLAN FOR INPATIENT GLYCEMIC CONTROL: * Hold outpatient oral diabetes medications * Basal insulin * Insulin NPH 15-25 units SQ qAM depending on BSG * Bolus insulin - loosened * NovoLog per scale ACHS or Q6hrs while NPO * Goal Range: Low 110 mg/dL - High 140 mg/dL * Correction Factor: 18 mg/dL/unit * Nutritional / Prandial insulin per carb ratio of 1 unit per 7 grams CHO consumed
[2019-07-07] MEDS: levoFLOXacin 750 MG TAB PO SCH (12:16)
[2019-07-07] MEDS: TERAZOSIN HCL 1 MG CAP PO SCH (20:33)
[2019-07-07] MEDS: AMLODIPINE BESYLATE 5 MG TAB PO SCH (20:34)
--- NOTE | 2019-07-07 22:42 | Hospitalist Progress Note ---
Date of Service July 07, 2019 Assessment & Plan (1) Acute and chronic respiratory failure: feeling much better continue Levaquin for 7 days total, stop Augmentin changed Solu Medrol to Prednisone 40mg daily (he never goes below 30mg due to arthritis) continue Duoneb PRN discussed with RN with home hospice, the patient NEEDS home care givers they cannot provide enough care, he is non-compliant with medications, CPAP at home he still wishes to be full code, they have been discussing this with him d/w CM, he has services available to him through [place] but he refuses some of his dyspnea likely due to volume overload, continue Lasix to BID to achieve a dry weight (2) Acute exacerbation of chronic obstructive pulmonary disease: improving, no wheezing or distress on exam has a cough, no sputum today Prednisone 40mg daily, antibiotics x 7 days, nebs (3) Morbid obesity with BMI of 40.0-44.9, adult: Life style modifications however given his end stage lung disease and cancer, it may be difficult. (4) Hypokalemia: slightly low today continue BID replacement with the Lasix BID (5) Non-small cell carcinoma of left lung: F/U with Dr. Boykin as an outpatient. 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 - Palliative was involved last admission, he did not want to change to DNR wants hospice services but expects to continue to come to hospital (6) Edema: pitting edema, increased Lasix to 80mg BID with abdominal distension, could have ascites as well had a CT this year that did not show any evidence of liver disease but that does not rule it out responding well to Lasix, weight down 8kg, continue daily weights, fluid restrict to 1500mL a day this does not represent heart failure, more likely cirrhosis, fluid retention due to chronic steroids (7) DVT prophylaxis: Heparin 5000 units every 12 hours subacute. (8) Constipation: resolved with a dose of Lactulose Admission and Anticipated Discharge Date Admission Date: July 02, 2019 Anticipated date of discharge: 07/09/19 Subjective patient continues to diurese, responding well to Lasix 80mg BID less edema in legs, still with swelling in abdomen he is compliant with fluid restriction weight is down since admission, he is 112kg from 120kg on admission labs reviewed, Cr is holding at 1.5, K is a little low, on BID replacement breathing better appetite is normal moving bowels Review of Systems Review of Systems: All systems reviewed & are unremarkable except as noted in HPI & below Respiratory: + cough and + dyspnea Cardiovascular: + edema; no chest pain Physical Exam Constitutional: WD/WN, vitals as above Eyes: PERRL, conjunctivae normal, anicteric sclerae ENMT: external ear and nose normal, oropharynx normal Neck: trachea midline, no thyromegaly Respiratory: normal respiratory effort and + cough; no respiratory distress Auscultation: + diminished lung sounds; no rales, no rhonchi and no wheezes Cardiovascular: Rate/Rhythm: regular rate and regular rhythm Heart Sounds: normal S1 and normal S2; no murmur Extremities: + edema (Pitting bilaterally, slight improvement) Gastrointestinal (Abdomen): normal bowel sounds, soft, nontender, no hepatosplenomegaly Inspection/Auscultation: + abdomen distended and normal bowel sounds Percussion/Palpation: abdomen soft and + ascites; abdomen nontender Musculoskeletal: no cyanosis or clubbing, extremities motor strength 5/5 Skin: no rashes, warm and dry Neurologic: patellar DTR's 2+ bilat, sensation intact and PERRL, EOMI, accommodation nl, no face palsy, no dysarthria Psychiatric: A+Ox3, euthymic affect Lymphatic: no cervical or axillary lymphadenopathy Results & Data ([facility]) Vital Signs (Past 12 Hours) Vital Signs Temp Pulse Resp BP Pulse Ox 07/07/19 20:31 98 H 117/65 07/07/19 19:55 90 18 96 07/07/19 15:08 36.4 C L 99 H 18 102/61 94 07/07/19 13:35 111 H 18 96 Laboratory Results Laboratory Results - last 24 hr 07/07/19 07/07/19 07/07/19 08:20 08:47 12:39 Sodium 137 Potassium 3.4 L D Chloride 95 L Carbon Dioxide 37 H Anion Gap 5.0 BUN 33 H Creatinine 1.51 H Est Cr Clr Drug Dosing 52.9 Est GFR ( Amer) 52.7 Est GFR (Non-Af Amer) 45.5 BUN/Creatinine Ratio 21.5 H Glucose 109 H POC Glucose 104 H 200 H Calcium 10.0 07/07/19 07/07/19 07/07/19 17:06 20:28 22:09 Sodium Potassium Chloride Carbon Dioxide Anion Gap BUN Creatinine Est Cr Clr Drug Dosing Est GFR ( Amer) Est GFR (Non-Af Amer) BUN/Creatinine Ratio Glucose POC Glucose 142 H 78 104 H Calcium Medications Administered Current Inpatient Medications Amlodipine Besylate (Norvasc) 5 mg PO HS [facility] Stop: 08/02/19 20:59 Last Admin: 07/07/19 20:34 Dose: 5 mg Documented by: Cetirizine HCl (Zyrtec) 5 mg PO QAM [facility] Stop: 08/02/19 08:59 Last Admin: 07/07/19 08:00 Dose: 5 mg Documented by: Cyanocobalamin (Vitamin B-12) 100 mcg PO QAM [facility] Stop: 08/02/19 08:59 Last Admin: 07/07/19 08:01 Dose: 100 mcg Documented by: Dextrose (Dextrose 50%) 25 - 50 ml IV UD PRN; Protocol PRN Reason: Hypoglycemia Protocol Stop: 08/02/19 09:44 Diclofenac Sodium (Voltaren 1% Top) 2 gm EXT Q12 [facility] Stop: 08/03/19 08:59 Last Admin: 07/07/19 20:34 Dose: 2 gm Documented by: Docusate Sodium (Colace) 100 mg PO BID [facility] Stop: 08/02/19 08:59 Last Admin: 07/07/19 20:37 Dose: 100 mg Documented by: Finasteride (Proscar) 5 mg PO QAM [facility] Stop: 08/02/19 08:59 Last Admin: 07/07/19 08:02 Dose: 5 mg Documented by: Fluticasone/Vilanterol (Breo Ellipta 100/25 Mcg Inh) 1 puffs INH DAILY [facility] Stop: 08/02/19 01:29 Last Admin: 07/07/19 07:55 Dose: 1 puffs Documented by: Furosemide (Lasix) 80 mg PO BID17 [facility] Stop: 08/04/19 16:59 Last Admin: 07/07/19 16:39 Dose: 80 mg Documented by: Glucagon (Glucagen) 1 mg IM UD PRN; Protocol PRN Reason: Hypoglycemia Protocol Stop: 08/02/19 09:44 Glucose (Glucose 40%) 15 - 30 gm PO UD PRN; Protocol PRN Reason: Hypoglycemia Protocol Stop: 08/02/19 09:44 Glucose (Dex4 Glucose) 4 - 8 tabs PO UD PRN; Protocol PRN Reason: Hypoglycemia Protocol Stop: 08/02/19 09:44 Heparin Sodium (Porcine) (Heparin Sodium (Porcine)) 5,000 units SQ Q12 [facility] Stop: 08/02/19 08:59 Last Admin: 07/07/19 20:39 Dose: 5,000 units Documented by: Insulin Aspart (Novolog Flexpen) 0 units SC ACHS [facility]; Protocol Stop: 08/04/19 20:59 Last Admin: 07/07/19 20:39 Dose: Not Given Documented by: Insulin Human NPH (Novolin N Nph) 0 units SC DAILY [facility]; Protocol Stop: 08/05/19 08:59 Last Admin: 07/07/19 09:21 Dose: 20 units Documented by: Levalbuterol HCl (Xopenex 1.25mg/3ml Neb) 1.25 mg NEB Q6R [facility] Stop: 08/02/19 06:59 Last Admin: 07/07/19 19:52 Dose: 1.25 mg Documented by: Levofloxacin (Levaquin) 750 mg PO Q48H [facility] Stop: 07/12/19 10:59 Last Admin: 07/07/19 12:16 Dose: 750 mg Documented by: Magnesium Oxide (Mag-Ox) 400 mg PO BID [facility] Stop: 08/02/19 08:59 Last Admin: 07/07/19 20:33 Dose: 400 mg Documented by: Methadone HCl (Dolophine) 10 mg PO 0500,1100,1700,2300 [facility] Stop: 07/18/19 05:44 Last Admin: 07/07/19 16:39 Dose: 10 mg Documented by: Metolazone (Zaroxolyn) 5 mg PO WeFr@0730 [facility] Stop: 08/05/19 07:29 Last Admin: 07/06/19 08:15 Dose: 5 mg Documented by: Miscellaneous (Carbohydrates For Hypoglycemia) 15 - 30 gm PO UD PRN PRN Reason: Hypoglycemia Treatment Stop: 08/02/19 09:44 Last Admin: 07/06/19 20:31 Dose: 15 gm Documented by: Miscellaneous Information (Consult Glycemic Management Pharmacy) 1 ea N/A UD [facility] Stop: 08/02/19 09:36 Pantoprazole Sodium (Protonix) 40 mg PO QAM [facility] Stop: 08/02/19 08:59 Last Admin: 07/07/19 08:01 Dose: 40 mg Documented by: Potassium Chloride (Klor-Con M20) 40 meq PO BID [facility] Stop: 08/06/19 08:59 Last Admin: 07/07/19 20:34 Dose: 40 meq Documented by: Prednisone (Prednisone) 40 mg PO QAM [facility] Stop: 08/05/19 08:59 Last Admin: 07/07/19 08:01 Dose: 40 mg Documented by: Pyridoxine HCl (Vitamin B-6) 100 mg PO QAM [facility] Stop: 08/02/19 08:59 Last Admin: 07/07/19 08:02 Dose: 100 mg Documented by: Sennosides (Senokot) 17.2 mg PO BID [facility] Stop: 08/02/19 08:59 Last Admin: 07/07/19 20:34 Dose: 17.2 mg Documented by: Sodium Chloride ([place] Nasal) 1 sprays NA Q4H PRN PRN Reason: nasal congestion Stop: 08/01/19 23:39 Terazosin HCl (Hytrin) 2 mg PO HS [facility] Stop: 08/02/19 20:59 Last Admin: 07/07/19 20:33 Dose: 2 mg Documented by: Umeclidinium [place] (Incruse Ellipta) 1 puffs INH [facility] Stop: 08/02/19 08:59 Last Admin: 07/07/19 07:55 Dose: 1 puffs Documented by: Vitamin D (Vitamin D3) [facility] Stop: 08/02/19 08:59 Last Admin: 07/07/19 08:00 Dose: 400 units Documented by: PG Care Time/CCT Total # of Minutes Spent Total Time Spent with Patient: Total time spent is greater than 50% in coord ination of care (as documented) at patient's floor/unit and/or counseling patient: Coding Level of Care Code 22621 Subseq Hosp Care Lvl 2 Diagnoses Acute and chronic respiratory failure J96.20 Acute exacerbation of chronic obstructive pulmonary disease J44.1 Morbid obesity with BMI of 40.0-44.9, adult E66.01; Z68.41 Hypokalemia E87.6 Non-small cell carcinoma of left lung C34.92 Edema R60.9 Edema type: unspecified DVT prophylaxis Z29.9 Constipation K59.00 (1) Edema Edema type: unspecified Qualified Code(s): R60.9 - Edema, unspecified
[2019-07-08] MEDS: LEVALBUTEROL HCL 1.25 MG/3 ML NEB NEB SCH ×4 (00:57→19:32)
[2019-07-08] MEDS: METHADONE HCL 10 MG TAB PO SCH ×4 (05:25→22:33)
[2019-07-08 08:32] LABS: BUN Creatinine Ratio 21.1 (10-20); Calcium 10.2 mg/dl (8.5-10.1); Creatinine Clr Calc Pharmacy 45.2 ml/min; Est GFR (African American) 43.8; Est GFR (Non-African American) 37.8; Potassium 3.2 mmol/L (3.5-5.1)
[2019-07-08] MEDS: predniSONE 20 MG TAB PO SCH (09:03)
[2019-07-08] MEDS: CETIRIZINE HCL 10 MG TABLET PO SCH (09:03)
[2019-07-08] MEDS: POTASSIUM CHLORIDE 20 MEQ TABCR PO SCH ×2 (09:04→20:39)
[2019-07-08] MEDS: FINASTERIDE 5 MG TAB PO SCH (09:04)
[2019-07-08] MEDS: CHOLECALCIFEROL (VITAMIN D) 400 UNITS TABLET PO SCH (09:04)
[2019-07-08] MEDS: PANTOprazole 40 MG TAB PO SCH (09:04)
[2019-07-08] MEDS: CYANOCOBALAMIN (VITAMIN B-12) 100 MCG TABLET PO SCH (09:04)
[2019-07-08] MEDS: SENNA 8.6 MG TAB PO SCH ×2 (09:04→20:41)
[2019-07-08] MEDS: PYRIDOXINE HCL 50 MG TAB PO SCH (09:04)
[2019-07-08] MEDS: metOLazone 5 MG TABLET PO SCH (09:04)
[2019-07-08] MEDS: FUROSEMIDE 80 MG TAB PO SCH ×2 (09:05→17:26)
[2019-07-08] MEDS: MAGNESIUM OXIDE 400 MG TAB PO SCH ×2 (09:05→20:40)
[2019-07-08] MEDS: FLUTICASONE/VILANTEROL 100/25MCG 14 PUFFS/INHALER INH SCH (09:05)
[2019-07-08] MEDS: UMECLIDINIUM BROMIDE 62.5MCG/BLISTER 7 PUFFS/INHALER INH SCH (09:05)
[2019-07-08] MEDS: INSULIN ASPART 100 UNITS/ML 3 ML PEN SC SCH ×4 (09:08→20:45)
[2019-07-08] MEDS: DOCUSATE SODIUM 100 MG CAP PO SCH ×2 (09:09→20:38)
[2019-07-08] MEDS: INSULIN HUMAN NPH SC SCH (09:11)
[2019-07-08] MEDS: HEPARIN SOD 5,000 UNIT/0.5 ML VIAL SQ SCH ×2 (09:11→20:45)
[2019-07-08] MEDS: DICLOFENAC SOD 1% GEL 100 GM TUBE EXT SCH ×2 (09:20→20:41)
--- NOTE | 2019-07-08 16:20 | Hospitalist Progress Note ---
Date of Service July 08, 2019 Assessment & Plan (1) Acute and chronic respiratory failure: feeling much better continue Levaquin for 7 days total, stop Augmentin changed Solu Medrol to Prednisone 40mg daily (he never goes below 30mg due to arthritis) continue Duoneb PRN discussed with RN with home hospice, the patient NEEDS home care givers they cannot provide enough care, he is non-compliant with medications, CPAP at home he still wishes to be full code, they have been discussing this with him d/w CM, he has services available to him through [place] but he refuses some of his dyspnea likely due to volume overload, continue Lasix to BID to achieve a dry weight talked with patient about going to the [facility] home, he refuses to consider this even though it would be his best option (2) Edema: pitting edema, increased Lasix to 80mg BID a few days ago with abdominal distension, could have ascites as well had a CT this year that did not show any evidence of liver disease but that does not rule it out responding well to Lasix, weight down 14lbs, continue daily weights, fluid restrict to 1500mL a day this does not represent heart failure, more likely cirrhosis, fluid retention due to chronic steroids (3) Acute exacerbation of chronic obstructive pulmonary disease: improving, no wheezing or distress on exam has a cough, no sputum today Prednisone 40mg daily, antibiotics x 7 days, nebs will taper to Prednisone 30mg on discharge which is his home dose (4) Morbid obesity with BMI of 40.0-44.9, adult: Life style modifications however given his end stage lung disease and cancer, it may be difficult. (5) Hypokalemia: 3.2, continue BID replacement consider addition of Spironolactone (6) Non-small cell carcinoma of left lung: F/U with Dr. Boykin as an outpatient. 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 Admission and Anticipated Discharge Date Admission Date: July 02, 2019 Anticipated date of discharge: 07/11/19 Subjective patient continues to lose edema, down another pound no edema in left leg, still with some in his right leg eating well, breathing is at baseline discussed with him safe options for discharge strongly encouraged him to go to the [facility] home in [place] he has reservations, he says his brother went to a home and there, his family would not want him to go his apartment is all he has left I told him that without caregivers and home nursing he is not safe at home hospice reported that he was not taking his medications, not using nebulizers he blamed it on hospice, said that they moved his medications around labs reviewed, Cr 1.7 and K is 3.2 Review of Systems Review of Systems: All systems reviewed & are unremarkable except as noted in HPI & below Constitutional: no fever Respiratory: + cough and + dyspnea on exertion Cardiovascular: + edema; no chest pain and no syncope Gastrointestinal: no abdominal pain, no nausea, no vomiting, no constipation and no diarrhea/loose stools Physical Exam Constitutional: WD/WN, vitals as above Eyes: PERRL, conjunctivae normal, anicteric sclerae ENMT: external ear and nose normal, oropharynx normal Neck: trachea midline, no thyromegaly Respiratory: normal respiratory effort and + cough; no respiratory distress Auscultation: + diminished lung sounds; no rales, no rhonchi and no wheezes Cardiovascular: Rate/Rhythm: regular rate and regular rhythm Heart Sounds: normal S1 and normal S2; no murmur Extremities: + edema (nearly gone in left leg, pitting edema in right leg) Gastrointestinal (Abdomen): normal bowel sounds, soft, nontender, no hepatosplenomegaly Inspection/Auscultation: + abdomen distended and normal bowel sounds Percussion/Palpation: abdomen soft and + ascites; abdomen nontender Musculoskeletal: no cyanosis or clubbing, extremities motor strength 5/5 Skin: no rashes, warm and dry Neurologic: patellar DTR's 2+ bilat, sensation intact and PERRL, EOMI, accommodation nl, no face palsy, no dysarthria Psychiatric: A+Ox3, euthymic affect Lymphatic: no cervical or axillary lymphadenopathy Results & Data ([facility]) Vital Signs (Past 12 Hours) Vital Signs Temp Pulse Pulse Resp BP Pulse Ox 07/08/19 15:15 36.6 C 101 H 18 126/81 95 07/08/19 13:13 110 H 18 87 L 07/08/19 08:14 101 H 18 96 07/08/19 08:08 36.3 C L 94 H 16 112/64 90 Laboratory Results Laboratory Results - last 24 hr 07/07/19 07/07/19 07/07/19 17:06 20:28 22:09 Sodium Potassium Chloride Carbon Dioxide Anion Gap BUN Creatinine Est Cr Clr Drug Dosing Est GFR ( Amer) Est GFR (Non-Af Amer) BUN/Creatinine Ratio Glucose POC Glucose 142 H 78 104 H Calcium 07/08/19 07/08/19 07/08/19 05:24 07:43 08:18 Sodium 138 Potassium 3.2 L Chloride 95 L Carbon Dioxide 36 H Anion Gap 7.0 BUN 37 H Creatinine 1.76 H Est Cr Clr Drug Dosing 45.2 Est GFR ( Amer) 43.8 Est GFR (Non-Af Amer) 37.8 BUN/Creatinine Ratio 21.1 H Glucose 88 POC Glucose 97 101 H Calcium 10.2 H 07/08/19 12:16 Sodium Potassium Chloride Carbon Dioxide Anion Gap BUN Creatinine Est Cr Clr Drug Dosing Est GFR ( Amer) Est GFR (Non-Af Amer) BUN/Creatinine Ratio Glucose POC Glucose 110 H Calcium Medications Administered Current Inpatient Medications Amlodipine Besylate (Norvasc) 5 mg PO HS [facility] Stop: 08/02/19 20:59 Last Admin: 07/07/19 20:34 Dose: 5 mg Documented by: Cetirizine HCl (Zyrtec) 5 mg PO QAM [facility] Stop: 08/02/19 08:59 Last Admin: 07/08/19 09:03 Dose: 5 mg Documented by: Cyanocobalamin (Vitamin B-12) 100 mcg PO QAM [facility] Stop: 08/02/19 08:59 Last Admin: 07/08/19 09:04 Dose: 100 mcg Documented by: Dextrose (Dextrose 50%) 25 - 50 ml IV UD PRN; Protocol PRN Reason: Hypoglycemia Protocol Stop: 08/02/19 09:44 Diclofenac Sodium (Voltaren 1% Top) 2 gm EXT Q12 [facility] Stop: 08/03/19 08:59 Last Admin: 07/08/19 09:20 Dose: 2 gm Documented by: Docusate Sodium (Colace) 100 mg PO BID [facility] Stop: 08/02/19 08:59 Last Admin: 07/08/19 09:09 Dose: Not Given Documented by: Finasteride (Proscar) 5 mg PO QAM [facility] Stop: 08/02/19 08:59 Last Admin: 07/08/19 09:04 Dose: 5 mg Documented by: Fluticasone/Vilanterol (Breo Ellipta 100/25 Mcg Inh) 1 puffs INH DAILY [facility] Stop: 08/02/19 01:29 Last Admin: 07/08/19 09:05 Dose: 1 puffs Documented by: Furosemide (Lasix) 80 mg PO BID17 [facility] Stop: 08/04/19 16:59 Last Admin: 07/08/19 09:05 Dose: 80 mg Documented by: Glucagon (Glucagen) 1 mg IM UD PRN; Protocol PRN Reason: Hypoglycemia Protocol Stop: 08/02/19 09:44 Glucose (Glucose 40%) 15 - 30 gm PO UD PRN; Protocol PRN Reason: Hypoglycemia Protocol Stop: 08/02/19 09:44 Glucose (Dex4 Glucose) 4 - 8 tabs PO UD PRN; Protocol PRN Reason: Hypoglycemia Protocol Stop: 08/02/19 09:44 Heparin Sodium (Porcine) (Heparin Sodium (Porcine)) 5,000 units SQ Q12 [facility] Stop: 08/02/19 08:59 Last Admin: 07/08/19 09:11 Dose: 5,000 units Documented by: Insulin Aspart (Novolog Flexpen) 0 units SC ACHS [facility]; Protocol Stop: 08/04/19 20:59 Last Admin: 07/08/19 13:15 Dose: 10 units Documented by: Insulin Human NPH (Novolin N Nph) 0 units SC DAILY [facility]; Protocol Stop: 08/05/19 08:59 Last Admin: 07/08/19 09:11 Dose: 15 units Documented by: Levalbuterol HCl (Xopenex 1.25mg/3ml Neb) 1.25 mg NEB Q6R [facility] Stop: 08/02/19 06:59 Last Admin: 07/08/19 13:12 Dose: 1.25 mg Documented by: Levofloxacin (Levaquin) 750 mg PO Q48H [facility] Stop: 07/12/19 10:59 Last Admin: 07/07/19 12:16 Dose: 750 mg Documented by: Magnesium Oxide (Mag-Ox) 400 mg PO BID [facility] Stop: 08/02/19 08:59 Last Admin: 07/08/19 09:05 Dose: 400 mg Documented by: Methadone HCl (Dolophine) 10 mg PO 0500,1100,1700,2300 [facility] Stop: 07/18/19 05:44 Last Admin: 07/08/19 12:18 Dose: 10 mg Documented by: Metolazone (Zaroxolyn) 5 mg PO WeFr@0730 [facility] Stop: 08/05/19 07:29 Last Admin: 07/08/19 09:04 Dose: 5 mg Documented by: Miscellaneous (Carbohydrates For Hypoglycemia) 15 - 30 gm PO UD PRN PRN Reason: Hypoglycemia Treatment Stop: 08/02/19 09:44 Last Admin: 07/06/19 20:31 Dose: 15 gm Documented by: Miscellaneous Information (Consult Glycemic Management Pharmacy) 1 ea N/A UD [facility] Stop: 08/02/19 09:36 Pantoprazole Sodium (Protonix) 40 mg PO QAM [facility] Stop: 08/02/19 08:59 Last Admin: 07/08/19 09:04 Dose: 40 mg Documented by: Potassium Chloride (Klor-Con M20) 40 meq PO BID [facility] Stop: 08/06/19 08:59 Last Admin: 07/08/19 09:04 Dose: 40 meq Documented by: Prednisone (Prednisone) 40 mg PO QAM [facility] Stop: 08/05/19 08:59 Last Admin: 07/08/19 09:03 Dose: 40 mg Documented by: Pyridoxine HCl (Vitamin B-6) 100 mg PO QAM [facility] Stop: 08/02/19 08:59 Last Admin: 07/08/19 09:04 Dose: 100 mg Documented by: Sennosides (Senokot) 17.2 mg PO BID [facility] Stop: 08/02/19 08:59 Last Admin: 07/08/19 09:04 Dose: 17.2 mg Documented by: Sodium Chloride ([place] Nasal) 1 sprays NA Q4H PRN PRN Reason: nasal congestion Stop: 08/01/19 23:39 Terazosin HCl (Hytrin) 2 mg PO HS [facility] Stop: 08/02/19 20:59 Last Admin: 07/07/19 20:33 Dose: 2 mg Documented by: Umeclidinium [place] (Incruse Ellipta) 1 puffs INH [facility] Stop: 08/02/19 08:59 Last Admin: 07/08/19 09:05 Dose: 1 puffs Documented by: Vitamin D (Vitamin D3) 400 units PO QAM [facility] Stop: 08/02/19 08:59 Last Admin: 07/08/19 09:04 Dose: 400 units Documented by: PG Care Time/CCT Total # of Minutes Spent Total Time Spent with Patient: Total time spent is greater than 50% in coordination of care (as documented) at patient's floor/unit and/or counseling patient: Coding Level of Care Code 27992 Subseq Hosp Care Lvl 2 Diagnoses Acute and chronic respiratory failure J96.20 Edema R60.9 Edema type: unspecified Acute exacerbation of chronic obstructive pulmonary disease J44.1 Morbid obesity with BMI of 40.0-44.9, adult E66.01; Z68.41 Hypokalemia E87.6 Non-small cell carcinoma of left lung C34.92 Constipation K59.00 DVT prophylaxis Z29.9 (1) Edema Edema type: unspecified Qualified Code(s): R60.9 - Edema, unspecified
[2019-07-08] MEDS: AMLODIPINE BESYLATE 5 MG TAB PO SCH (20:40)
[2019-07-08] MEDS: TERAZOSIN HCL 1 MG CAP PO SCH (20:40)
[2019-07-09] MEDS: LEVALBUTEROL HCL 1.25 MG/3 ML NEB NEB SCH ×4 (00:58→19:32)
[2019-07-09] MEDS: METHADONE HCL 10 MG TAB PO SCH ×4 (05:31→22:51)
[2019-07-09] MEDS ORDERED: SPIRONOLACTONE 25 MG TAB PO SCH (09:00)
[2019-07-09] MEDS: INSULIN HUMAN NPH SC SCH (10:00)
[2019-07-09] MEDS: HEPARIN SOD 5,000 UNIT/0.5 ML VIAL SQ SCH ×2 (10:00→21:45)
[2019-07-09] MEDS: INSULIN ASPART 100 UNITS/ML 3 ML PEN SC SCH ×4 (10:01→21:44)
[2019-07-09] MEDS: FLUTICASONE/VILANTEROL 100/25MCG 14 PUFFS/INHALER INH SCH (10:02)
[2019-07-09] MEDS: UMECLIDINIUM BROMIDE 62.5MCG/BLISTER 7 PUFFS/INHALER INH SCH (10:03)
[2019-07-09] MEDS: POTASSIUM CHLORIDE 20 MEQ TABCR PO SCH ×2 (10:04→21:42)
[2019-07-09] MEDS: FUROSEMIDE 80 MG TAB PO SCH ×2 (10:05→18:22)
[2019-07-09] MEDS: predniSONE 20 MG TAB PO SCH (10:06)
[2019-07-09] MEDS: FINASTERIDE 5 MG TAB PO SCH (10:06)
[2019-07-09] MEDS: MAGNESIUM OXIDE 400 MG TAB PO SCH ×2 (10:06→21:47)
[2019-07-09] MEDS: CYANOCOBALAMIN (VITAMIN B-12) 100 MCG TABLET PO SCH (10:07)
[2019-07-09] MEDS: SENNA 8.6 MG TAB PO SCH ×2 (10:07→21:41)
[2019-07-09] MEDS: PANTOprazole 40 MG TAB PO SCH (10:07)
[2019-07-09] MEDS: PYRIDOXINE HCL 50 MG TAB PO SCH (10:08)
[2019-07-09] MEDS: CHOLECALCIFEROL (VITAMIN D) 400 UNITS TABLET PO SCH (10:08)
[2019-07-09] MEDS: CETIRIZINE HCL 10 MG TABLET PO SCH (10:08)
[2019-07-09] MEDS: DICLOFENAC SOD 1% GEL 100 GM TUBE EXT SCH ×2 (10:09→21:43)
[2019-07-09] MEDS: DOCUSATE SODIUM 100 MG CAP PO SCH ×2 (10:11→21:54)
[2019-07-09] MEDS: levoFLOXacin 750 MG TAB PO SCH (11:35)
--- NOTE | 2019-07-09 14:25 | Pharmacy Report ---
Glycemic Control Progress Note - Date of Service July 09, 2019 - Scope Glycemic Pharmacist consulted for glycemic control to write orders per [facility] inpatient glycemic control protocol. - Objective Accuchecks BSG(last 24 hours):: 07/08/19 07/08/19 07/09/19 17:29 20:37 08:08 POC Glucose 240 H 144 H 129 H 07/09/19 11:57 POC Glucose 173 H - Recent Pertinent Medications The patient is currently receiving: * Basal insulin: nph 15 UNITS units every 24 hours * Correctional Insulin: Novolog Correction per scale ACHS Goal Range: Low 110 mg/dL - High 140 mg/dL Correction Factor: 25 mg/dL/unit * Prandial insulin: Per carb ratio of 1 unit per 9 grams CHO consumed - Outpatient Anti-Diabetic Meds glimepiride 2 mg daily metformin 500 mg PO BID - Assessment & Plan ASSESSMENT: * See progress note from 07/03/2019 for more background info, in short: * Pt receiving SQ basal bolus insulin regimen for hyperglycemia secondary to baseline DM (outpatient regimen on hold),stress/infection (pulmonary infection on Levaquin), and prednisone 40 mg daily. * Patient is currently receiving an average of 40 units of insulin per day * 15 units of basal insulin * 25 units of prandial/correctional insulin * BSGs ranging 101 - 240 mg/dl over the past 24hrs * Changes needed to insulin regimen: * AM Fasting BSG = 129 mg/dl. This is in goal range for patient based on inpatient targets and co-morbidities. Therefore continue to hold any Jonas tus. Will schedule NPH 20 units daily as this appears to be what patient requires at this point. May increase NPH tomorrow. * Post-prandial BSGs are in range therefore no changes needed to CF/CR. P atient's dinnertime blood sugar yesterday was elevated but patient received only 15 units of NPH - increased to 20 units today. Lunch blood sugar slightly high but NPH was given at 10 today. * Total daily dose = 40-50 units. This will change once prednisone strength decreases. PLAN FOR INPATIENT GLYCEMIC CONTROL: * Increasing NPH to 20 units SQ qAM * Continuing correction factor of 25 mg/dl/unit * Continuing carb ratio of 1 unit per 7 grams CHO consumed * Continuing goal range of Low 110 mg/dL - High 140 mg/dL * Please note that the plan above was derived based on current level of insulin resistance and hospital stress. These recommendations are appropriate for inpatient admission only. Plan of care upon discharge will need to be reassessed to avoid potential outpatient hypo/hyperglycemia. Thank you.
--- NOTE | 2019-07-09 16:09 | Hospitalist Progress Note ---
Date of Service July 09, 2019 Assessment & Plan (1) Acute and chronic respiratory failure: feeling much better completed 7 days of Levaquin changed Solu Medrol to Prednisone 30mg daily, this is his home dose continue Duoneb PRN discussed with RN with home hospice, the patient NEEDS home care givers they cannot provide enough care, he is non-compliant with medications, CPAP at home he still wishes to be full code, they have been discussing this with him d/w CM, he has services available to him through [place] but he refuses some of his dyspnea likely due to volume overload, continue Lasix to BID to achieve a dry weight talked with patient about going to the [facility] home, he refuses to consider this even though it would be his best option plan to go home tomorrow, breathing is at baseline (2) Edema: pitting edema, increased Lasix to 80mg BID on 07/05 with abdominal distension, could have ascites as well had a CT this year that did not show any evidence of liver disease but that does not rule it out responding well to Lasix, weight down 15lbs, continue daily weights, fluid restrict to 1500mL a day this does not represent heart failure, more likely cirrhosis, fluid retention due to chronic steroids (3) Acute exacerbation of chronic obstructive pulmonary disease: improving, no wheezing or distress on exam has a cough, no sputum today Prednisone 30mg daily, antibiotics x 7 days (complete), nebs (4) Morbid obesity with BMI of 40.0-44.9, adult: Life style modifications however given his end stage lung disease and cancer, it may be difficult. (5) Hypokalemia: 3.2, continue BID replacement add Spironolactone 25mg this morning check BMP tomorrow (6) Non-small cell carcinoma of left lung: F/U with Dr. Boykin as an outpatient. 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 Admission and Anticipated Discharge Date Admission Date: July 02, 2019 Anticipated date of discharge: 07/10/19 Subjective patient resting in bed, propping his legs up to help with edema right leg is improving eating well c/o constipation weight down a little further to 110kg might be close to his baseline weight Review of Systems Review of Systems: All systems reviewed & are unremarkable except as noted in HPI & below Respiratory: + dyspnea on exertion Cardiovascular: + edema Physical Exam Constitutional: WD/WN, vitals as above Eyes: PERRL, conjunctivae normal, anicteric sclerae ENMT: external ear and nose normal, oropharynx normal Neck: trachea midline, no thyromegaly Respiratory: normal respiratory effort and + cough; no respiratory distress Auscultation: + diminished lung sounds; no rales, no rhonchi and no wheezes Cardiovascular: Rate/Rhythm: regular rate and regular rhythm Heart Sounds: normal S1 and normal S2; no murmur Extremities: + edema (nearly gone in left leg, pitting edema in right leg) Gastrointestinal (Abdomen): normal bowel sounds, soft, nontender, no hepatosplenomegaly Inspection/Auscultation: + abdomen distended and normal bowel sounds Percussion/Palpation: abdomen soft and + ascites; abdomen nontender Musculoskeletal: no cyanosis or clubbing, extremities motor strength 5/5 Skin: no rashes, warm and dry Neurologic: patellar DTR's 2+ bilat, sensation intact and PERRL, EOMI, accommodation nl, no face palsy, no dysarthria Psychiatric: A+Ox3, euthymic affect Lymphatic: no cervical or axillary lymphadenopathy Results & Data ([facility]) Vital Signs (Past 12 Hours) Vital Signs Temp Pulse Resp BP Pulse Ox 07/09/19 15:50 36.6 C 92 H 17 108/70 95 07/09/19 13:36 91 H 16 98 07/09/19 07:12 36.5 C 91 H 20 114/70 98 07/09/19 07:02 97 H 16 97 Medications Administered Current Inpatient Medications Amlodipine Besylate (Norvasc) 5 mg PO HS [facility] Stop: 08/02/19 20:59 Last Admin: 07/08/19 20:40 Dose: 5 mg Documented by: Cetirizine HCl (Zyrtec) 5 mg PO QAM [facility] Stop: 08/02/19 08:59 Last Admin: 07/09/19 10:08 Dose: 5 mg Documented by: Cyanocobalamin (Vitamin B-12) 100 mcg PO QAM [facility] Stop: 08/02/19 08:59 Last Admin: 07/09/19 10:07 Dose: 100 mcg Documented by: Dextrose (Dextrose 50%) 25 - 50 ml IV UD PRN; Protocol PRN Reason: Hypoglycemia Protocol Stop: 08/02/19 09:44 Diclofenac Sodium (Voltaren 1% Top) 2 gm EXT Q12 [facility] Stop: 08/03/19 08:59 Last Admin: 07/09/19 10:09 Dose: 2 gm Documented by: Docusate Sodium (Colace) 100 mg PO BID [facility] Stop: 08/02/19 08:59 Last Admin: 07/09/19 10:11 Dose: 100 mg Documented by: Finasteride (Proscar) 5 mg PO QAM [facility] Stop: 08/02/19 08:59 Last Admin: 07/09/19 10:06 Dose: 5 mg Documented by: Fluticasone/Vilanterol (Breo Ellipta 100/25 Mcg Inh) 1 puffs INH DAILY [facility] Stop: 08/02/19 01:29 Last Admin: 07/09/19 10:02 Dose: 1 puffs Documented by: Furosemide (Lasix) 80 mg PO BID17 [facility] Stop: 08/04/19 16:59 Last Admin: 07/09/19 10:05 Dose: 80 mg Documented by: Glucagon (Glucagen) 1 mg IM UD PRN; Protocol PRN Reason: Hypoglycemia Protocol Stop: 08/02/19 09:44 Glucose (Glucose 40%) 15 - 30 gm PO UD PRN; Protocol PRN Reason: Hypoglycemia Protocol Stop: 08/02/19 09:44 Glucose (Dex4 Glucose) 4 - 8 tabs PO UD PRN; Protocol PRN Reason: Hypoglycemia Protocol Stop: 08/02/19 09:44 Heparin Sodium (Porcine) (Heparin Sodium (Porcine)) 5,000 units SQ Q12 [facility] Stop: 08/02/19 08:59 Last Admin: 07/09/19 10:00 Dose: 5,000 units Documented by: Insulin Aspart (Novolog Flexpen) 0 units SC ACHS [facility]; Protocol Stop: 08/04/19 20:59 Last Admin: 07/09/19 12:54 Dose: 8 units Documented by: Insulin Human NPH (Novolin N Nph) 20 units SC DAILY [facility]; Protocol Stop: 08/09/19 08:59 Lactulose (Chronulac) 20 gm PO NOW ONE Stop: 07/09/19 16:16 Levalbuterol HCl (Xopenex 1.25mg/3ml Neb) 1.25 mg NEB Q6R [facility] Stop: 08/02/19 06:59 Last Admin: 07/09/19 13:34 Dose: 1.25 mg Documented by: Levofloxacin (Levaquin) 750 mg PO Q48H [facility] Stop: 07/12/19 10:59 Last Admin: 07/09/19 11:35 Dose: 750 mg Documented by: Magnesium Oxide (Mag-Ox) 400 mg PO BID [facility] Stop: 08/02/19 08:59 Last Admin: 07/09/19 10:06 Dose: 400 mg Documented by: Methadone HCl (Dolophine) 10 mg PO 0500,1100,1700,2300 [facility] Stop: 07/18/19 05:44 Last Admin: 07/09/19 11:35 Dose: 10 mg Documented by: Metolazone (Zaroxolyn) 5 mg PO WeFr@0730 [facility] Stop: 08/05/19 07:29 Last Admin: 07/08/19 09:04 Dose: 5 mg Documented by: Miscellaneous (Carbohydrates For Hypoglycemia) 15 - 30 gm PO UD PRN PRN Reason: Hypoglycemia Treatment Stop: 08/02/19 09:44 Last Admin: 07/06/19 20:31 Dose: 15 gm Documented by: Miscellaneous Information (Consult Glycemic Management Pharmacy) 1 ea N/A UD [facility] Stop: 08/02/19 09:36 Pantoprazole Sodium (Protonix) 40 mg PO QAM [facility] Stop: 08/02/19 08:59 Last Admin: 07/09/19 10:07 Dose: 40 mg Documented by: Potassium Chloride (Klor-Con M20) 40 meq PO BID [facility] Stop: 08/06/19 08:59 Last Admin: 07/09/19 10:04 Dose: 40 meq Documented by: Prednisone (Prednisone) 40 mg PO QAM [facility] Stop: 08/05/19 08:59 Last Admin: 07/09/19 10:06 Dose: 40 mg Documented by: Pyridoxine HCl (Vitamin B-6) 100 mg PO QAM [facility] Stop: 08/02/19 08:59 Last Admin: 07/09/19 10:08 Dose: 100 mg Documented by: Sennosides (Senokot) 17.2 mg PO BID [facility] Stop: 08/02/19 08:59 Last Admin: 07/09/19 10:07 Dose: 17.2 mg Documented by: Sodium Chloride ([place] Nasal) 1 sprays NA Q4H PRN PRN Reason: nasal congestion Stop: 08/01/19 23:39 Spironolactone (Aldactone) 25 mg PO QAM [facility] Stop: 08/08/19 08:59 Last Admin: 07/09/19 10:02 Dose: 25 mg Documented by: Terazosin HCl (Hytrin) 2 mg PO HS [facility] Stop: 08/02/19 20:59 Last Admin: 07/08/19 20:40 Dose: 2 mg Documented by: Umeclidinium [place] (Incruse Ellipta) [facility] Stop: 08/02/19 08:59 Last Admin: 07/09/19 10:03 Dose: 1 puffs Documented by: Vitamin D (Vitamin D3) 400 units PO QAM [facility] Stop: 08/02/19 08:59 Last Admin: 07/09/19 10:08 Dose: 400 units Documented by: PG Care Time/CCT Total # of Minutes Spent Total Time Spent with Patient: Total time spent is greater than 50% in coordination of care (as documented) at patient's floor/unit and/or counseling patient: Coding Level of Care Code 88900 Subseq Hosp Care Lvl 2 Diagnoses Acute and chronic respiratory failure J96.20 Edema R60.9 Edema type: unspecified Acute exacerbation of chronic obstructive pulmonary disease J44.1 Morbid obesity with BMI of 40.0-44.9, adult E66.01; Z68.41 Hypokalemia E87.6 Non-small cell carcinoma of left lung C34.92 Constipation K59.00 DVT prophylaxis Z29.9 (1) Edema Edema type: unspecified Qualified Code(s): R60.9 - Edema, unspecified
[2019-07-09] MEDS ORDERED: LACTULOSE SYRUP 20 GM/30 ML UDC PO ONE (16:15)
[2019-07-09] MEDS: TERAZOSIN HCL 1 MG CAP PO SCH (21:40)
[2019-07-09] MEDS: AMLODIPINE BESYLATE 5 MG TAB PO SCH (21:42)
[2019-07-10] MEDS: LEVALBUTEROL HCL 1.25 MG/3 ML NEB NEB SCH ×4 (01:12→19:50)
[2019-07-10] MEDS: METHADONE HCL 10 MG TAB PO SCH ×3 (05:18→17:07)
[2019-07-10 06:12] LABS: BUN Creatinine Ratio 23.6 (10-20); Calcium 10.4 mg/dl (8.5-10.1); Creatinine Clr Calc Pharmacy 37.6 ml/min; Est GFR (African American) 35.4; Est GFR (Non-African American) 30.5; Magnesium 2.2 mg/dl (1.8-2.4)
[2019-07-10] MEDS ORDERED: predniSONE 10 MG TABLET PO SCH (09:00)
[2019-07-10] MEDS ORDERED: INSULIN HUMAN NPH SC SCH (09:00)
[2019-07-10] MEDS: MAGNESIUM OXIDE 400 MG TAB PO SCH (09:20)
[2019-07-10] MEDS: PYRIDOXINE HCL 50 MG TAB PO SCH (09:21)
[2019-07-10] MEDS: POTASSIUM CHLORIDE 20 MEQ TABCR PO SCH ×2 (09:22→14:55)
[2019-07-10] MEDS: CYANOCOBALAMIN (VITAMIN B-12) 100 MCG TABLET PO SCH (09:22)
[2019-07-10] MEDS: CETIRIZINE HCL 10 MG TABLET PO SCH (09:23)
[2019-07-10] MEDS: PANTOprazole 40 MG TAB PO SCH (09:23)
[2019-07-10] MEDS: CHOLECALCIFEROL (VITAMIN D) 400 UNITS TABLET PO SCH (09:23)
[2019-07-10] MEDS: SENNA 8.6 MG TAB PO SCH (09:26)
[2019-07-10] MEDS: FINASTERIDE 5 MG TAB PO SCH (09:26)
[2019-07-10] MEDS: UMECLIDINIUM BROMIDE 62.5MCG/BLISTER 7 PUFFS/INHALER INH SCH (09:27)
[2019-07-10] MEDS: FLUTICASONE/VILANTEROL 100/25MCG 14 PUFFS/INHALER INH SCH (09:27)
[2019-07-10] MEDS: DOCUSATE SODIUM 100 MG CAP PO SCH (09:29)
[2019-07-10] MEDS: INSULIN ASPART 100 UNITS/ML 3 ML PEN SC SCH ×3 (09:31→17:50)
[2019-07-10] MEDS: HEPARIN SOD 5,000 UNIT/0.5 ML VIAL SQ SCH (09:36)
[2019-07-10] MEDS: DICLOFENAC SOD 1% GEL 100 GM TUBE EXT SCH (09:38)
--- NOTE | 2019-07-10 10:26 | Pharmacy Report ---
Glycemic Control Progress Note - Date of Service July 10, 2019 - Scope Glycemic Pharmacist consulted for glycemic control to write orders per [facility] inpatient glycemic control protocol. - Objective Accuchecks BSG(last 24 hours):: 07/09/19 07/09/19 07/09/19 11:57 17:24 20:53 Glucose POC Glucose 173 H 192 H 162 H 07/10/19 07/10/19 05:17 08:03 Glucose 101 H POC Glucose 116 H - Recent Pertinent Medications The patient is currently receiving: * Basal insulin: NPH 20 units every 24 hours * Correctional Insulin: Novolog Correction per scale ACHS Goal Range: Low 110 mg/dL - High 140 mg/dL Correction Factor: 25 mg/dL/unit * Prandial insulin: Per carb ratio of 1 unit per 7 grams CHO consumed - Outpatient Anti-Diabetic Meds glimepiride 2 mg PO daily metformin 500 mg PO BID - Assessment & Plan ASSESSMENT: * See progress note from 07/09/2019 for more background info, in short: * Pt receiving SQ basal bolus insulin regimen for hyperglycemia secondary to baseline DM (outpatient regimen on hold) and infection (on Levaquin PO). * Patient is currently receiving an average of 44 units of insulin per day * 20 units of basal insulin * 24 units of prandial/correctional insulin * BSGs ranging 129 - 192 mg/dl over the past 24hrs * Changes needed to insulin regimen: * AM Fasting BSG = 116 mg/dl. This is in goal range for patient based on inpatient targets and co-morbidities. Will continue to hold Lantus. Will continue NPH at 20 units. Prednisone was decreased to 30 mg daily. If was left at 40 mg daily would have increased NPH. So at this point continue. * Post-prandial BSGs trend upwards. NPH "increased." Remove HS Novolog coverage as patient is able to correct himself. * Total daily dose = ~45 units. * PLAN FOR INPATIENT GLYCEMIC CONTROL: * Continuing NPH to 20 units SQ daily * Continuing correction factor of 25 mg/dl/unit * Continuing carb ratio of 1 unit per 7 grams CHO consumed * Continuing goal range of Low 110 mg/dL - High 140 mg/dL * Please note that the plan above was derived based on current level of insulin resistance and hospital stress. These recommendations are appropriate for inpatient admission only. Plan of care upon discharge will need to be reassessed to avoid potential outpatient hypo/hyperglycemia. Thank you.
--- NOTE | 2019-07-10 13:40 | Discharge Summary ---
Date of Service July 10, 2019 Admission HPI Per Admitting Provider Patient is a 74 years old male with past medical history of chronic respiratory failure, diabetes mellitus type 2 with complications, benign prostatic hypertrophy, stage IV lung cancer currently not under treatment. Patient with adverse reaction to Opdivo, chronic pain on methadone, hypertension, hyperlipidemia who presents to the emergency room with severe shortness of breath and acute respiratory failure. 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 Patient recently discharged with COPD exacerbation about 32 days ago. Patient reports that he has been getting more short of breath over the course of the past 2-3 weeks. He obtained a z pack this past week and completed it. He states that this did not help with his symptoms. He states that he has the CPAP machine at home but does not know how to use it. Patient denies any fever chills. He does report orthopnea. Patient states he has been compliant with his lasix and his urine has been getting darker. Despite this his SOB has not improved. Patient came to the ED and was found to have hypercapnic respiratory failure. On another note, he states that he has followed with Oncology who states he no longer requires any further cancer treatment at this time. Principal Diagnosis Acute on chronic respiratory failure Discharge Exam Constitutional WD/WN, vitals as above Eyes PERRL, conjunctivae normal, anicteric sclerae ENMT external ear and nose normal, oropharynx normal Neck trachea midline, no thyromegaly Respiratory normal respiratory effort and + cough; no respiratory distress Auscultation: + diminished lung sounds; no rales, no rhonchi and no wheezes Cardiovascular Rate/Rhythm: regular rate and regular rhythm Heart Sounds: normal S1 and normal S2; no murmur Extremities: + edema (nearly gone in left leg, far less edema in right leg) Gastrointestinal (Abdomen) normal bowel sounds, soft, nontender, no hepatosplenomegaly Inspection/Auscultation: + abdomen distended and normal bowel sounds Percussion/Palpation: abdomen soft and + ascites; abdomen nontender Musculoskeletal no cyanosis or clubbing, extremities motor strength 5/5 Skin no rashes, warm and dry Neurologic patellar DTR's 2+ bilat, sensation intact and PERRL, EOMI, accommodation nl, no face palsy, no dysarthria Psychiatric A+Ox3, euthymic affect Lymphatic no cervical or axillary lymphadenopathy Discharge Data Allergies Allergy/AdvReac Type Severity Reaction Status Date / Time Bactrim Allergy Severe TONGUE Verified 12/02/17 08:11 SWELLS/FONG mupirocin Allergy Severe ANAPHYLAXIS Verified 07/02/19 22:44 sulfamethoxazole Allergy Severe TONGUE Verified 07/02/19 22:44 SWELLS/FONG trimethoprim Allergy Severe TONGUE Verified 07/02/19 22:44 SWELLS/FONG Iodinated Contrast Media Allergy Intermediate HIVES/ITCHI Verified 07/02/19 22:44 NG lisinopril Allergy Intermediate Tongue Verified 07/02/19 22:44 Swelling mustard Allergy Intermediate Hives, Verified 07/02/19 22:44 SOB, Itchy aspirin Allergy Mild ITCHY Verified 07/02/19 22:44 adhesive AdvReac Intermediate Tape - Rash Verified 07/02/19 22:44 Consultations 07/02/19 23:25 ED Decision to Admit Stat Hospital Course (1) Acute and chronic respiratory failure: feeling much better completed 7 days of Levaquin changed Solu Medrol to Prednisone 30mg daily, this is his home dose continue Duoneb PRN discussed with RN with home hospice, the patient NEEDS home care givers they cannot provide enough care, he is non-compliant with medications, CPAP at home he still wishes to be full code, they have been discussing this with him d/w CM, he has services available to him through [facility] but he refuses encouraged him to accept these services after discharge, CM can arrange [facility] with [facility], he refuses to consider this even though it would be his best option d/c to home today (2) Edema: pitting edema, increased Lasix to 80mg BID on 07/05 with abdominal distension, could have ascites as well had a CT this year that did not show any evidence of liver disease but that does not rule it out responded well to increased Lasix, weight down 15lbs this does not represent heart failure, more likely cirrhosis, fluid retention due to chronic steroids on discharge will resume Lasix 80mg daily, encouraged him to follow low sodium diet and fluid restriction Cr started to trend up at the end of admission due to diuresis Lasix was held on 07/10 and instructed him to hold on 07/11, he can resume on the morning of 07/12 in addition to the Spironolactone 25mg that was added could likely titrate up on the Spironolactone at home (3) Acute exacerbation of chronic obstructive pulmonary disease: improving, no wheezing or distress on exam has a cough, no sputum today Prednisone 30mg daily, antibiotics x 7 days (complete), nebs (has these at home) (4) Morbid obesity with BMI of 40.0-44.9, adult: Life style modifications however given his end stage lung disease and cancer, it may be difficult. (5) Hypokalemia: 3.0, continue BID replacement on discharge add Spironolactone 25mg qAM check BMP with home services on 07/12 (6) Non-small cell carcinoma of left lung: F/U with Dr. Boykin as an outpatient. 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 Total Time Total Time Spent Total Time Spent (In Minutes): 35 minutes Total Time Includes: Examination of the Patient, Discharge Planning and Medication Reconciliation Discharge Plan Discharge Items Patient Disposition: Home - Home Health Services Reason For Visit: HYPERCAPNIC RESPIRATORY FAILURE Discharge Diagnosis: COPD exacerbation Volume overload CKD stage III Hypokalemia Condition on Discharge: Fair Goals: please accept services from [facility] for home nursing visits, care givers check labs this week to follow up on renal function continue with hospice Activity: Resume your previous activity Non-emergency contact: Primary Care Provider Call non-emergency contact if: you have any medication questions, your symptoms worsen and you have a fever Follow-up/Referrals: Kathy Del Cid C.R.N.P. [Primary Care Provider] - (Hospice patient) Diet: Low Sodium (2gm) Fluids: 1800ml (7 cups) Ambulatory Orders: Basic Metabolic Panel (Routine) Timeframe: 2 Days Location: Determined by Patient Ordered By: Bronson Stokes Attending Provider Instructions: Medications: - POTASSIUM: dose increased to 40mEq daily - SPIRONOLACTONE: 25mg daily, this is a new diuretic to take in addition to the Lasix - LASIX: continue 80mg daily, but don't start until 07/12 (Thursday) morning COPD exacerbation: you completed a course of antibiotics you are back down to your baseline Prednisone 30mg daily, continue continue to use your inhaled medications as prescribed you need to take Spiriva EVERY DAY you need to take Symbicort TWICE A DAY use your Albuterol nebulizer four times a day as needed Volume overload we removed 15 lbs of fluid while you were admitted by giving you Lasix 80mg twice a day today your renal function started to go up a little too high so we will back off on Lasix please HOLD the Lasix until Thursday, at that time resume 80mg DAILY I added a new medication which is Spironolactone, this is also a diuretic please start taking the Spironolactone on Thursday as well it is important that you follow a low sodium diet, less than 2gm a day please follow a fluid restriction of less than seven 8 oz glasses a day this includes all fluids Constipation: recommend that you take Miralax as needed, this is over the counter please accept home services from the [facility], my rehabilitation case coordinator will make phone calls to start these this week, hospice should resume tomorrow I will give you a lab script, have home nursing draw this on Thursday with results to Kathy Del Cid Pending Studies at Discharge: No Stand-Alone Forms: [facility] [place], Smoking Cessation Medications and DC Order Prescriptions: New spironolactone 25 mg tablet 25 mg PO DAILY Qty: 30 RF: 1 potassium chloride [Klor-Con M20] 20 mEq Tablet,Er Particles/Crystals 40 meq PO DAILY 30 Days Qty: 60 RF: 0 Continued methadone 10 mg tablet 10 mg PO QID Qty: 12 RF: 0 furosemide 40 mg tablet 80 mg PO QAM RF: 0 cholecalciferol (vitamin D3) 400 unit capsule 400 unit PO QAM RF: 0 cyanocobalamin (vitamin B-12) [Vitamin B-12] 100 mcg Tablet 100 mcg PO QAM RF: 0 terazosin 2 mg Capsule 2 mg PO HS RF: 0 docusate sodium 100 mg Capsule 100 mg PO BID RF: 0 pyridoxine (vitamin B6) [Vitamin B-6] 100 mg Tablet 100 mg PO QAM RF: 0 albuterol sulfate 90 mcg/actuation Hfa Aerosol Inhaler 2 puff INHALATION Q4H PRN (Reason: Shortness Of Breath) RF: 0 finasteride 5 mg Tablet 5 mg PO QAM RF: 0 magnesium oxide 400 mg magnesium Capsule 400 mg PO BID RF: 0 budesonide-formoterol [Symbicort] 160-4.5 mcg/actuation Hfa Aerosol Inhaler 2 puff inhalation BID Qty: 1 RF: 0 sodium chloride [Saline Mist] 0.65 % Aerosol,[place] 1 spray NA Q4H PRN (Reason: nasal congestion) Qty: 1 RF: 0 sennosides 8.6 mg Tablet 17.2 mg PO BID RF: 0 amlodipine [Norvasc] 5 mg tablet 5 mg PO HS RF: 0 albuterol sulfate 1.25 mg/3 mL Solution For Nebulization 1.25 mg INHALATION QID RF: 0 cetirizine 5 mg Tablet 5 mg PO QAM RF: 0 diclofenac sodium [Voltaren] 1 % Gel 4 applic EXT QID PRN (Reason: joint pain) Qty: 1 RF: 0 prednisone 10 mg tablet 30 mg PO QAM RF: 0 omeprazole 20 mg capsule,delayed release(DR/EC) 20 mg PO QAM RF: 0 Spiriva with HandiHaler 18 mcg capsule, w/inhalation device 1 puff inhalation QAM RF: 0 metformin 500 mg tablet extended release 24 hr 500 mg PO BID Qty: 0 RF: 0 glimepiride 2 mg tablet 2 mg PO DAILY Qty: 30 RF: 2 azelastine 137 mcg (0.1 %) aerosol,spray 1 spray INTRANASAL BID PRN (Reason: Nasal Congestion) RF: 0 Discontinued potassium chloride 20 mEq Tablet Extended Release 20 meq PO DAILY Qty: 0 RF: 0 metolazone 5 mg tablet 5 mg PO . Qty: 20 RF: 0 Discharge Orders: Discharge Order (Routine); Ordered 07/10/19 Ordered By: Bronson Goldberg/Other Patient Handouts: Choices Low Salt, Fluids Limiting Dc Admission Data Admit Date/Time: 07/02/19 23:37 Attending Provider: Bronson Dail Admit Provider: Kike Marcum Primary Care Provider: Kathy Del Cid Other Providers: [facility] ; Kike Marcum Other Interventions: Discharge Summary Assessment (RN) Last Done: 07/10/19 16:45 DC Date/Time DO NOT enter until pt leaves facility: 07/10/19 20:46 Coding Level of Care Code D/C Day Management >30 mins Diagnoses Acute and chronic respiratory failure J96.20 Edema R60.9 Edema type: unspecified Acute exacerbation of chronic obstructive pulmonary disease J44.1 Morbid obesity with BMI of 40.0-44.9, adult E66.01; Z68.41 Hypokalemia E87.6 Non-small cell carcinoma of left lung C34.92 Constipation K59.00 DVT prophylaxis Z29.9
--- NOTE | 2019-07-13 08:48 | Coding Query ---
To promote full compliance with coding requirements relating to patient care, provider participation is requested in all cases of local company hazmat driver uncertainty. Please assist us with the question(s) below: Coding Question(s): The diagnosis below was documented in the ER H&P, then subsequently fell off all further documentation. Please indicate if it is still a possible diagnosis or ruled out. Physician's Response(s): PNEUMONIA ( ) Diagnosed and POA ( ) Diagnosed and not POA ( x ) Ruled out ( ) Other (please specify) MTDD
== END 2019-07-10 20:46 | disposition hospice, home (50) | DRG 189 ==
LOC: ED 21:23 → 2S 23:37 → SUATTDRO 23:37 → 2S 07-03 01:07 → 3W 07-04 12:45

== ENCOUNTER 2019-08-04 09:25 | Inpatient (IN) ==
[2019-08-04] MEDS ORDERED: ONDANSETRON INJ 2 MG/ML 2 ML VIAL IV STA (09:52)
[2019-08-04 10:07] LABS: Basophils # (auto) 0.02 K/uL (0-0.2); Basophils % (auto) 0.2 %; Eosinophils # (auto) 0.02 K/uL (0-0.5); Eosinophils % (auto) 0.2 %; Hematocrit (blood only) 37.2 % (42-52); Hemoglobin 11.8 g/dL (14.0-18.0); Immature Granulocytes # (auto) 0.25 K/uL (0.00-0.02); Lymphocytes # (auto) 1.24 K/uL (1.2-3.4); Mean Corpuscular Hemoglobin 30.7 pg (25-34); Mean Corpuscular Hgb Conc 31.7 g/dL (32-36); Mean Corpuscular Volume 96.9 fL (80-100); Mean Platelet Volume 9.4 fL (7.4-10.4); Monocytes # (auto) 1.37 K/uL (0.11-0.59); Monocytes % (auto) 11.1 %; Neutrophils # (auto) 9.48 K/uL (1.4-6.5); Neutrophils % (auto) 76.5 %; Platelet Count 204 K/uL (130-400); RDW Standard Deviation 55.9 fL (36.4-46.3); Red Blood Count 3.84 M/uL (4.7-6.1); White Blood Count 12.38 K/uL (4.8-10.8)
--- NOTE | 2019-08-04 10:09 | Emergency Department Note ---
ED Provider Note NAME: ELLIS MILTON AGE: 74 SEX: M ARRIVES VIA: Ambulance INFORMANT: [Patient], hospice ED PROVIDER(S): Abhinav Yanez MD CHIEF COMPLAINT: Back pain, weakness IMPRESSION: Thoracic back pain Metastatic lung cancer Weakness Fever Tachycardia PLAN: Disposition: Admitted Condition: [Good] MEDICAL DECISION MAKING: Patient is a 74-year-old male that presented back to the emergency department several hours after being discharged due to back pain and weakness. The patient was in the emergency department and had a work-up performed. Unfortunately patient could not tolerate CT imaging. Dr. gómez wanted to admit the patient however he wanted to go home. He was in contact with hospice this morning called EMS. The patient was treated with IV Dilaudid. X-ray imaging and ultrasound imaging was performed. No evidence of DVT on ultrasound. The patient does have new compression fractures of the thoracic spine. This is concerning for possible pathologic fractures. Triage Nursing notes reviewed and agree them. [Additional history obtained from] hospice [Prior medical records reviewed] patient had a mild leukocytosis last night on CBC. He has lung cancer. History of bladder cancer as well. Vital Signs: reviewed and remarkable for tachycardia, fever, and hypoxia on room air Differential diagnosis: Musculoskeletal, disc herniation, fracture, metastatic disease, cord compression, discitis, sciatica, cauda equina, infection, aortic disease, renal colic, gastrointestinal, pneumonia, PE, DVT, as well as other pathologies. ER treatment provided: Supplemental oxygen IV Dilaudid IV Zofran IV Rocephin empirically Diagnostics interpreted by me: ECG: Rate: 114 bpm Rhythm: Sinus tachycardia Melvin: Normal QRS: Normal ST segements: No elevation or depression Other: Anterior Q waves Cardiac Monitoring: Cardiac monitoring ordered: The patient was placed on continuous cardiac monitoring and observed. It revealed a sinus tachycardia at 102 bpm without ectopy or evidence of dysrhythmia. Laboratory studies: [See below] mild leukocytosis on CBC. Chemistry panel was unremarkable. BNP and troponin negative. Blood cultures pending. Imaging studies: Arrival Chest x-ray. Findings: A chest x-ray was performed and revealed no pneumothorax, effusion, infiltrate, pulmonary edema, free air under the diaphragm, or wide mediastinum. Impression: No acute disease. Thoracic spine x-ray agitation patient imaging: Redemonstration of a T7 pathologic fracture as shown on CT of March 31, 2019. Associated paraspinal mass not well seen on this exam. Suspected additional T5, T6 and T8 fractures, as above. Ultrasound imaging negative for DVT. Consultation(s): A consultation was placed with the [facility] hospitalist. The case was discussed and diagnostics were reviewed. The patient was evaluated and admitted for further management. HPI: The patient is a 74 year old male who presents to the Emergency Room with complaints of midthoracic back pain weakness. This started several days ago and is worsening. The patient also notes the following associated symptoms, right leg swelling, shortness of breath, 5 years of abdominal pain, general fatigue. The patient has been using his pain medications for relieving factors. Current pain is rated as 8/10. The patient was here last night because of the back pain. A work-up was initiated however the patient could not tolerate lying flat despite using pain medications and BiPAP. Admission was recommended but the patient declined. Pt denies LOC, headache, fevers, chills, diaphoresis, visual changes, neck pain, chest pain, nausea, vomiting, melena, hematochezia, urinary symptoms, numbness, lymphadenopathy, rash, or other complaints. ROS: See above HPI for pertinent positives & negatives. A total of [10] systems reviewed and were otherwise negative. PAST MEDICAL HISTORY:[See Below] lung CA PAST SURGICAL HISTORY:[See Below] FAMILY HISTORY:[See Below] SOCIAL HISTORY:Lives alone HOME MEDICATIONS:Reviewed in the EMR ALLERGIES:Reviewed. Extensive list. Allergic to contrast. VITALS:[See Below] PHYSICAL EXAMINATION: GENERAL: Awake, alert, uncomfortable and dyspneic-appearing, in no distress HENT: Normocephalic, atraumatic. Oropharynx unremarkable. EYES: Normal conjunctiva. Sclera non-icteric. NECK: Inspection normal. Non-tender. Supple. No nuchal rigidity. FROM. No masses. RESPIRATORY: Diminished however clear to auscultation. No wheezes. No rales. Mildly increased respiratory effort. CARDIAC: Normal rate. Normal rhythm. No murmurs. No rubs. Extremities warm and well perfused. Pulses equal. No JVD. GI: Soft, non-distended. Mild diffuse tenderness to palpation which the patient states is chronic. No rebound or guarding. No masses. Umbilical hernia present. Reducible. RECTAL: Deferred. MUSCULOSKELETAL: Atraumatic. Chest examination reveals no tenderness. The back is symmetrical on inspection without obvious abnormality. There is no CVA tenderness to palpation. No joint edema. LOWER EXTREMITIES: 2+ edema on the right and 1+ on the left. The patient states that this has been worsening on the right side. NEURO: Normal sensorium. Generalized weakness in the lower legs however no sensory or motor deficits noted. The patient has no saddle anesthesia. SKIN: No rash or jaundice noted. ED COURSE: Procedures: [none] [Critical Care:] I have personally spent greater than 35 minutes of critical care time in the direct management of this patient. This includes bedside care, interpretation of diagnostic studies, and testing, discussion with consultants, patient, and other required patient management activities. This 30 minutes is in excess of all separately billable procedures. Abhinav Yanez MD Impression & Plan Compression fx, thoracic spine, SIRS (systemic inflammatory response syndrome), Back pain, thoracic, Leukocytosis Past Med/Surg History Medical History Acute leg pain (Inactive) Bladder cancer CURRENTLY BEING TREATED W/ CHEMOTHERAPY Bladder cancer metastasized to pelvic region (Acute) BPH (benign prostatic hyperplasia) (Chronic) Chronic back pain Chronic respiratory failure (Chronic) Constipation COPD (chronic obstructive pulmonary disease) (Chronic) COPD (chronic obstructive pulmonary disease) (Chronic) DVT prophylaxis Elevated PSA (Chronic) Goals of care, counseling/discussion H/O hematuria (Resolved) H/O malignant neoplasm of skin (Chronic) Hyperlipidemia (Chronic) Hypertension (Resolved) Inguinal hernia BL Left leg swelling (Inactive) Non-small cell lung cancer (Chronic) CURRENTLY BEING TREATED W/ CHEMOTHERAPY Opioid dependence (Chronic) Osteoarthritis Stroke (Chronic) 2009 - NO PERIPHERAL VISION RT SIDE - NO NEUROLOGIST Umbilical hernia Urothelial carcinoma (Chronic) Surgical History H/O hand surgery (Resolved) H/O Moh's micrographic surgery for skin cancer (Resolved) H/O prostate biopsy (Acute) H/O prostatectomy History of bronchoscopy W/ BIOPSY History of colonoscopy History of surgery TRANSURETHRAL RESECTION OF BLADDER TUMOR X 3 History of surgery PLACEMENT OF MEDIPORT W/ REMOVAL History of ureter stent W/ REMOVAL Family History Father , 69yo ID, DM, arthritis, HTN Diabetes Cardiac disorder Hypertension Mother , age 84 from stroke Cardiac disorder Hypertension Brother Diabetes Cardiac disorder Hypertension Cancer, face Sister History of kidney cancer Hypertension Unknown Lung cancer Leukemia Basal cell carcinoma Social History Preferred Language: Mexican Communication Ability: Effective Visual Impairment: No Limitations Hearing Ability: Hard of Hearing Fire Supp[employer] Required: No Beliefs That Will Affect Care: None marital status: marital status details: 1 son and 3 daughters Current Living Situation: Alone Current Living Situation Comment: apartment current occupational status: retired current occupation: [employer] Other Information That Helps Us Care for You: No Feels Safe at Home: Yes Safety Concerns: Feels Safe At This Time Smoking Status: Former smoker Tobacco Type: cigarettes ; Cigarettes Per Day: 20 ; Do You Dip or Chew Tobacco: No ; Second Hand Exposure: No ; Tobacco Cessation Education Requested by Patient: No Hx Alcohol Use: No Hx Substance Use: No caffeine: Yes (3 cups/day) during the past year weight has: decreased > 10 lbs Results & Data Vital Signs Vital Signs - 24 hr 08/04/19 09:35 08/04/19 09:41 08/04/19 10:09 Temperature 37.8 C H Temperature Source Oral Pulse Rate 115 H Pulse Rate [Left Finger] Respiratory Rate 26 H Blood Pressure 118/77 Blood Pressure [Left Arm] Blood Pressure Mean 90 Blood Pressure Mean [Left Arm] Pulse Oximetry 85 L 94 94 Oxygen Delivery Method Room Air Nasal Cannula Nasal Cannula Oxygen Flow Rate 4 4 Sepsis Recent Fever Within 48 Hours Yes Sepsis New/Unexplained Change in Mental Status No Sepsis Action Taken by Nursing No Action Required 08/04/19 10:38 08/04/19 11:35 08/04/19 12:45 Temperature Temperature Source Pulse Rate Pulse Rate [Left Finger] 109 H 112 H 99 H Respiratory Rate 16 22 18 Blood Pressure Blood Pressure [Left Arm] 101/72 117/78 129/76 Blood Pressure Mean Blood Pressure Mean [Left Arm] 81 91 93 Pulse Oximetry 94 97 98 Oxygen Delivery Method Nasal Cannula Nasal Cannula Room Air Oxygen Flow Rate 4 4 Sepsis Recent Fever Within 48 Hours Sepsis New/Unexplained Change in Mental Status Sepsis Action Taken by Nursing Laboratory Data Result diagrams: 08/04/19 09:47 08/04/19 09:47 Lab Results 08/04/19 08/04/19 08/04/19 Range/Units 09:47 09:47 09:47 WBC 12.38 H (4.8-10.8) K/uL RBC 3.84 L (4.7-6.1) M/uL Hgb 11.8 L (14.0-18.0) g/dL Hct 37.2 L (42-52) % MCV 96.9 (80-100) fL MCH 30.7 (25-34) pg MCHC 31.7 L (32-36) g/dL RDW Std Deviation 55.9 H (36.4-46.3) fL RDW Coeff of James 16.0 H (11.5-14.5) % Plt Count 204 (130-400) K/uL MPV 9.4 (7.4-10.4) fL Immature Gran % (Auto) 2.0 % Neut % (Auto) 76.5 % Lymph % (Auto) 10.0 % [place] % (Auto) 11.1 % Eos % (Auto) 0.2 % Baso % (Auto) 0.2 % Immature Gran # (Auto) 0.25 H (0.00-0.02) K/uL Neut # (Auto) 9.48 H (1.4-6.5) K/uL Lymph # (Auto) 1.24 (1.2-3.4) K/uL [place] # (Auto) 1.37 H (0.11-0.59) K/uL Eos # (Auto) 0.02 (0-0.5) K/uL Baso # (Auto) 0.02 (0-0.2) K/uL Sodium 135 L (136-145) mmol/L Potassium 3.9 (3.5-5.1) mmol/L Chloride 96 L (98-107) mmol/L Carbon Dioxide 33 H (21-32) mmol/L Anion Gap 6.0 (3-11) BUN 22 H (7-18) mg/dl Creatinine 1.05 (0.6-1.4) mg/dl Est Cr Clr Drug Dosing 78.6 ml/min Est GFR ( Amer) 81.8 Est GFR (Non-Af Amer) 70.6 BUN/Creatinine Ratio 20.7 H (10-20) Glucose 160 H (70-99) mg/dl Lactate (0.4-2.0) mmol/L Calcium 10.5 H (8.5-10.1) mg/dl Total Bilirubin 0.4 (0.2-1) mg/dl AST 21 (15-37) U/L ALT 36 (12-78) U/L Alkaline Phosphatase 90 (45-117) U/L NT-Pro-B Natriuret Pep 305 (0-900) pg/ml Total Protein 6.6 (6.4-8.2) gm/dl Albumin 2.8 L (3.4-5.0) gm/dl Globulin 3.8 (2.5-4.0) gm/dl Albumin/Globulin Ratio 0.7 L (0.9-2) Lipase 37 L (73-393) U/L Procalcitonin (0-0.5) ng/ml Urine Color Urine Appearance (Clear) Urine pH (4.5-7.5) Ur Specific [place] (1.000-1.030) Urine Protein (Negative) Urine Glucose (UA) (Negative) Urine Ketones (Negative) Urine Blood (Negative) Urine Nitrite (Negative) Urine Bilirubin (Negative) Urine Urobilinogen (Negative) Ur Leukocyte Esterase (Negative) Urine WBC (Auto) (0-5) /hpf Urine RBC (Auto) (0-4) /hpf U Hyaline Cast (Auto) (0-5) /lpf U Epithel Cells (Auto) (0-5) /lpf Urine Bacteria (Auto) (Negative) Ur Renal Epithelial Cell Influenza Type A (PCR) (Neg) Influenza Type B (PCR) (Neg) 08/04/19 08/04/19 08/04/19 Range/Units 09:50 10:00 10:03 WBC (4.8-10.8) K/uL RBC (4.7-6.1) M/uL Hgb (14.0-18.0) g/dL Hct (42-52) % MCV (80-100) fL MCH (25-34) pg MCHC (32-36) g/dL RDW Std Deviation (36.4-46.3) fL RDW Coeff of James (11.5-14.5) % Plt Count (130-400) K/uL MPV (7.4-10.4) fL Immature Gran % (Auto) % Neut % (Auto) % Lymph % (Auto) % [place] % (Auto) % Eos % (Auto) % Baso % (Auto) % Immature Gran # (Auto) (0.00-0.02) K/uL Neut # (Auto) (1.4-6.5) K/uL Lymph # (Auto) (1.2-3.4) K/uL [place] # (Auto) (0.11-0.59) K/uL Eos # (Auto) (0-0.5) K/uL Baso # (Auto) (0-0.2) K/uL Sodium (136-145) mmol/L Potassium (3.5-5.1) mmol/L Chloride (98-107) mmol/L Carbon Dioxide (21-32) mmol/L Anion Gap (3-11) BUN (7-18) mg/dl Creatinine (0.6-1.4) mg/dl Est Cr Clr Drug Dosing ml/min Est GFR ( Amer) Est GFR (Non-Af Amer) BUN/Creatinine Ratio (10-20) Glucose (70-99) mg/dl Lactate 1.4 (0.4-2.0) mmol/L Calcium (8.5-10.1) mg/dl Total Bilirubin (0.2-1) mg/dl AST (15-37) U/L ALT (12-78) U/L Alkaline Phosphatase (45-117) U/L NT-Pro-B Natriuret Pep (0-900) pg/ml Total Protein (6.4-8.2) gm/dl Albumin (3.4-5.0) gm/dl Globulin (2.5-4.0) gm/dl Albumin/Globulin Ratio (0.9-2) Lipase (73-393) U/L Procalcitonin 0.15 (0-0.5) ng/ml Urine Color Urine Appearance (Clear) Urine pH (4.5-7.5) Ur Specific [place] (1.000-1.030) Urine Protein (Negative) Urine Glucose (UA) (Negative) Urine Ketones (Negative) Urine Blood (Negative) Urine Nitrite (Negative) Urine Bilirubin (Negative) Urine Urobilinogen (Negative) Ur Leukocyte Esterase (Negative) Urine WBC (Auto) (0-5) /hpf Urine RBC (Auto) (0-4) /hpf U Hyaline Cast (Auto) (0-5) /lpf U Epithel Cells (Auto) (0-5) /lpf Urine Bacteria (Auto) (Negative) Ur Renal Epithelial Cell Influenza Type A (PCR) Neg for Influ A (Neg) Influenza Type B (PCR) Neg for Influ B (Neg) 08/04/19 Range/Units 13:00 WBC (4.8-10.8) K/uL RBC (4.7-6.1) M/uL Hgb (14.0-18.0) g/dL Hct (42-52) % MCV (80-100) fL MCH (25-34) pg MCHC (32-36) g/dL RDW Std Deviation (36.4-46.3) fL RDW Coeff of James (11.5-14.5) % Plt Count (130-400) K/uL MPV (7.4-10.4) fL Immature Gran % (Auto) % Neut % (Auto) % Lymph % (Auto) % [place] % (Auto) % Eos % (Auto) % Baso % (Auto) % Immature Gran # (Auto) (0.00-0.02) K/uL Neut # (Auto) (1.4-6.5) K/uL Lymph # (Auto) (1.2-3.4) K/uL [place] # (Auto) (0.11-0.59) K/uL Eos # (Auto) (0-0.5) K/uL Baso # (Auto) (0-0.2) K/uL Sodium (136-145) mmol/L Potassium (3.5-5.1) mmol/L Chloride (98-107) mmol/L Carbon Dioxide (21-32) mmol/L Anion Gap (3-11) BUN (7-18) mg/dl Creatinine (0.6-1.4) mg/dl Est Cr Clr Drug Dosing ml/min Est GFR ( Amer) Est GFR (Non-Af Amer) BUN/Creatinine Ratio (10-20) Glucose (70-99) mg/dl Lactate (0.4-2.0) mmol/L Calcium (8.5-10.1) mg/dl Total Bilirubin (0.2-1) mg/dl AST (15-37) U/L ALT (12-78) U/L Alkaline Phosphatase (45-117) U/L NT-Pro-B Natriuret Pep (0-900) pg/ml Total Protein (6.4-8.2) gm/dl Albumin (3.4-5.0) gm/dl Globulin (2.5-4.0) gm/dl Albumin/Globulin Ratio (0.9-2) Lipase (73-393) U/L Procalcitonin (0-0.5) ng/ml Urine Color Yellow Urine Appearance Clear (Clear) Urine pH 7.0 (4.5-7.5) Ur Specific [place] 1.016 (1.000-1.030) Urine Protein 1+ H (Negative) Urine Glucose (UA) Negative (Negative) Urine Ketones Trace H (Negative) Urine Blood 3+ H (Negative) Urine Nitrite Negative (Negative) Urine Bilirubin Negative (Negative) Urine Urobilinogen Negative (Negative) Ur Leukocyte Esterase Trace H (Negative) Urine WBC (Auto) 5-10 H (0-5) /hpf Urine RBC (Auto) >30 H (0-4) /hpf U Hyaline Cast (Auto) 1-5 (0-5) /lpf U Epithel Cells (Auto) >30 H (0-5) /lpf Urine Bacteria (Auto) Negative (Negative) Ur Renal Epithelial Cell Not Reportable Influenza Type A (PCR) (Neg) Influenza Type B (PCR) (Neg) Administered Medications Sodium Chloride (Nss 1000ml) 1,000 mls @ 125 mls/hr IV .Q8H STA Stop: 08/04/19 18:16 Last Admin: 08/04/19 10:32 Dose: 125 mls/hr Documented by: [id number] Doxycycline Hyclate 100 mg/ (Dextrose) 110 mls @ 50 mls/hr IV Q12 BELKIS Stop: 08/11/19 15:59 Last Admin: 08/04/19 16:34 Dose: 50 mls/hr Documented by: [id number] Methylprednisolone 60 mg/ (Syringe) 0.96 mls @ 1.5 mls/min IV Q12H BELKIS Stop: 09/03/19 15:59 Last Admin: 08/04/19 16:34 Dose: 1.5 mls/min Documented by: [id number] Methadone HCl (Dolophine) 10 mg PO 0500,1100,1700,2300 BELKIS Stop: 08/18/19 16:59 Last Admin: 08/04/19 16:48 Dose: 10 mg Documented by: [id number] Discontinued Medications Hydromorphone HCl (Dilaudid) 0.5 mg IV Q15M PRN PRN Reason: Pain Stop: 08/18/19 09:51 Last Admin: 08/04/19 14:07 Dose: 0.5 mg Documented by: [id number] Admin: 08/04/19 13:32 Dose: 0.5 mg Documented by: [id number] Admin: 08/04/19 12:55 Dose: 0.5 mg Documented by: [id number] Admin: 08/04/19 10:31 Dose: 0.5 mg Documented by: [id number] Ceftriaxone Sodium (Rocephin) 1,000 mg in 50 mls @ 100 mls/hr IV NOW STA Stop: 08/04/19 12:59 Last Infusion: 08/04/19 13:05 Dose: 0 mls/hr Documented by: [id number] Admin: 08/04/19 12:45 Dose: 100 mls/hr Documented by: [id number] Ceftriaxone Sodium 1,000 mg/ (Dextrose) 60 mls @ 120 mls/hr IV ONE ONE Stop: 08/04/19 16:14 Last Admin: 08/04/19 16:33 Dose: 120 mls/hr Documented by: [id number] Ondansetron HCl (Zofran) 4 mg IV NOW STA Stop: 08/04/19 09:53 Last Admin: 08/04/19 10:31 Dose: 4 mg Documented by: [id number] Discharge Plan Visit Data *Final* Discharge Date/Time: 08/04/19 14:35 Chief Complaint: Back Injury/Pain Stated Complaint: back pain ED Provider: Abhinav Yanez Discharge Problem: Compression fx, thoracic spine, SIRS (systemic inflammatory response syndrome), Back pain, thoracic, Leukocytosis Patient Disposition: Admitted As Inpatient Discharge Instructions Interventions: ED Discharge Assessment Last Done: 08/04/19 14:35
[2019-08-04] MEDS ORDERED: SODIUM CHLORIDE 0.9% 1000ML 1,000 ML IV STA (10:17)
[2019-08-04 10:22] LABS: Albumin Level 2.8 gm/dl (3.4-5.0); BUN Creatinine Ratio 20.7 (10-20); Calcium 10.5 mg/dl (8.5-10.1); Creatinine Clr Calc Pharmacy 78.6 ml/min; Est GFR (African American) 81.8; Est GFR (Non-African American) 70.6; Potassium 3.9 mmol/L (3.5-5.1)
[2019-08-04 10:25] LABS: Albumin Globulin Ratio 0.7 (0.9-2); Bilirubin,Total 0.4 mg/dl (0.2-1); Globulin 3.8 gm/dl (2.5-4.0); Total Protein 6.6 gm/dl (6.4-8.2)
[2019-08-04] MEDS: HYDROmorphone INJ 0.5 MG/0.5 ML SYR IV PRN ×5 (10:31→17:20)
--- NOTE | 2019-08-04 10:44 | Electrocardiogram Report ---
Test Reason : Blood Pressure : / mmHG Vent. Rate : 114 BPM Atrial Rate : 114 BPM P-R Int : 152 ms QRS Dur : 082 ms QT Int : 302 ms P-R-T Axes : 066 064 055 degrees QTc Int : 416 ms Sinus tachycardia Possible Anterior infarct , age undetermined Abnormal ECG When compared with ECG of 03-AUG-2019 23:22, Borderline criteria for Anterior infarct are now Present Confirmed by Maicol Hines ([id number]) on 08/04/2019 10:44:38 AM Referred By: REFERRED SELF Confirmed By:Maicol Hines
[2019-08-04 11:04] LABS: Influenza A virus by PCR Neg for Influ A (Neg); Influenza B virus by PCR Neg for Influ B (Neg)
--- NOTE | 2019-08-04 11:06 | Ultrasound Report ---
US venous doppler LE RT CLINICAL HISTORY: right leg swelling, lung CA COMPARISON STUDY: No previous studies for comparison. FINDINGS: Real-time and color flow Doppler imaging were performed. Flow was seen within the femoral, popliteal and calf veins with no intraluminal thrombus demonstrated. The saphenous vein is patent. IMPRESSION: No evidence of deep venous thrombosis. ACT 112: Negative or not required by law. The above report was generated using voice recognition software. It may contain grammatical, syntax or spelling errors. Electronically signed by: Amaury Sanchez M.D. 08/04/2019 11:05 AM
--- NOTE | 2019-08-04 11:28 | XRay Report ---
XR chest 2V PA/lateral CLINICAL HISTORY: back pain, fever, lung CA COMPARISON STUDY: 08/04/2019 12:44 AM FINDINGS: No change compared to the prior study. All findings previously described appear similar. Th ere is a emphysematous bleb at the left lung base which is improved in definition on the current exam . IMPRESSION: No change compared to the prior study. Chronic and pre-existing findings are stable ACT 112: Negative or not required by law. The above report was generated using voice recognition software. It may contain grammatical, syntax or spelling errors. Electronically signed by: Amaury Sanchez M.D. 08/04/2019 11:27 AM
--- NOTE | 2019-08-04 11:57 | XRay Report ---
XR thoracic spine 3V routine CLINICAL HISTORY: mid back pain, lung CA COMPARISON STUDY: Chest CT March 31, 2019. FINDINGS: Right paraspinal mass at the T7 level shown on CT of March 31, 2019 is not well seen on this exam. Pathologic T7 compression fracture is similar to prior exam. There are also fractures of T 5 and T6 with suspected interval increase in loss of height of T5. There may also be a T8 fracture. F ocal levoscoliosis of the thoracic spine is noted at this level. IMPRESSION: Redemonstration of a T7 pathologic fracture as shown on CT of March 31, 2019. [facility] paraspinal mass not well seen on this exam. Suspected additional T5, T6 and T8 fractures, as abov e. ACT 112: Negative or not required by law. Electronically signed by: Giovanny Milian M.D. 08/04/2019 11:56 AM
[2019-08-04] MEDS ORDERED: cefTRIAXone SODIUM 1,000 MG/50 ML BAG IV STA ×2 (12:30→15:20)
--- NOTE | 2019-08-04 13:06 | History & Physical Report ---
Date of Service August 04, 2019 Assessment & Plan (1) Compression fracture of body of thoracic vertebra: Patient has 3 compression fracture thoracic spine at T5, T6, and T8 likely new. There is also a older compression fracture at T7 seen on x-ray. Patient cannot tolerate MRI to confirm this. Patient failed outpatient therapy with seems responding well to IV Dilaudid. For now will admit patient for further pain management. We will continue oral medications along with IV Dilaudid. Wi ll start lower dose IV Solu-Medrol as well. Will ask orthopedics to evaluate for possible surgical intervention including kyphoplasty. Patient was previously on hospice, will ask palliative care to see the patient as well to continue managing his pain medically. Will need PT/OT evaluation. (2) Stage 4 lung cancer: Patient has stage IV lung carcinoma, is hospice. Patient follows with Dr. Gu. Consider consultation if necessary. (3) Chronic respiratory failure with hypoxia and hypercapnia: Patient's O2 saturation is fine with nasal cannula. He typically wears this in his mouth since he can not tolerate in his nose and seems to be effective. Can continue this is noted. (4) SIRS (systemic inflammatory response syndrome): Patient is febrile, there is concern regarding possible concomitant pneumonia or COPD exacerbation. Patient was given a dose of Rocephin in the emergency room. We will continue this along with doxycycline for now. Check procalcitonin. Steroids as above for possible COPD exacerbation. Will await cultures as ordered. Continue other medications as ordered. (5) DM w/o complication type II: Continue metformin with glimepiride. Will add sliding scale with an ADA diet. History of Present Illness Primary Care Provider: Kathy Del Cid This is a 74-year-old male with past medical history of metastatic lung cancer on hospice that presents today complaining of severe back pain. Patient is a decent historian. Patient tells me that starting yesterday morning he had significant back pain that woke him from sleep. This is mostly in the thoracic region without radiation. It hurts much more with movement. While initially denied trauma, he does tell me that 2 days prior, he had a partial fall where he fell against a door jam and did not think he injured himself. He does have significant cough but tells me that this is at his baseline. He denies any fevers at home but did present with a temp of 37.8 C. Patient presented to the emergency room on the evening of 08/02. They note the patient is on methadone, tramadol, and liquid morphine but none of these will help with the pain. He was given a dose of Dilaudid along with IV morphine. Patient cannot tolerate a CT scan. Patient apparently did well with pain medication subsequently discharged home. Earlier today, patient was having significant more back pain. Called the hospitalist company to send someone to help him. However, the pain was so severe that he called EMS prior to their arrival. Patient was subsequently brought to the emergency room. At the time my evaluation, the patient is in to be much more comfortable. Received Dilaudid 0.5mg which should relieve the pain. He does note continued significant pain with movement. Allergies Allergy/AdvReac Type Severity Reaction Status Date / Time Bactrim Allergy Severe TONGUE Verified 12/02/17 08:11 SWELLS/FONG mupirocin Allergy Severe ANAPHYLAXIS Verified 08/03/19 23:56 sulfamethoxazole Allergy Severe TONGUE Verified 08/03/19 23:56 SWELLS/FONG trimethoprim Allergy Severe TONGUE Verified 08/03/19 23:56 SWELLS/FONG Iodinated Contrast Media Allergy Intermediate HIVES/ITCHI Verified 08/03/19 23:56 NG lisinopril Allergy Intermediate Tongue Verified 08/03/19 23:56 Swelling mustard Allergy Intermediate Hives, Verified 08/03/19 23:56 SOB, Itchy aspirin Allergy Mild ITCHY Verified 08/03/19 23:56 adhesive AdvReac Intermediate Tape - Rash Verified 08/03/19 23:56 Home Medications Home Medications Medication Instructions Recorded Confirmed Type albuterol sulfate 2 puff INHALATION Q4H PRN 03/30/18 08/04/19 History cyanocobalamin (vitamin B-12) 0 mcg PO QAM 03/30/18 08/04/19 History [Vitamin B-12] finasteride 0 mg PO QAM 03/30/18 08/04/19 History pyridoxine (vitamin B6) [Vitamin 0 mg PO QAM 03/30/18 08/04/19 History B-6] terazosin 0 mg PO HS 03/30/18 08/04/19 History cholecalciferol (vitamin D3) 10 0 unit PO QAM cap 12/01/18 08/04/19 History mcg (400 unit) capsule magnesium oxide 400 mg PO BID 12/03/18 08/04/19 History amlodipine [Norvasc] 0 mg PO HS 12/07/18 08/04/19 History sennosides 17.2 mg PO BID 12/07/18 08/04/19 History albuterol sulfate 1.25 mg INHALATION QID PRN 12/28/18 08/04/19 History diclofenac sodium [Voltaren] 4 applic EXT QID PRN #1 tube 01/15/19 08/04/19 Rx budesonide-formoterol [Symbicort] 2 puff INHALATION BID #1 box 04/05/19 08/04/19 Rx methadone 10 mg tablet 10 mg PO QID #12 tab 04/05/19 08/04/19 Rx sodium chloride [Saline Mist] 1 spray NA Q4H PRN #1 btl 04/05/19 08/04/19 Rx Spiriva with HandiHaler 1 puff INHALATION QAM 05/24/19 08/04/19 History omeprazole 20 mg PO QAM 05/24/19 08/04/19 History prednisone 0 mg PO QAM 05/24/19 08/04/19 History glimepiride 2 mg PO DAILY #30 tab 05/30/19 08/04/19 Rx azelastine 137 mcg (0.1 %) nasal 1 spray INTRANASAL BID PRN 06/16/19 08/04/19 History spray aerosol furosemide 40 mg tablet 0 mg PO QAM tab 06/16/19 08/04/19 History potassium chloride [Klor-Con M20] 40 meq PO DAILY 30 Days #60 tab 07/10/19 08/04/19 Rx spironolactone 25 mg PO DAILY #30 tab 07/10/19 08/04/19 Rx guaifenesin [Tussin] 200 mg PO DIRECTED PRN 08/04/19 08/04/19 History haloperidol lactate 2 mg PO Q4H PRN 08/04/19 08/04/19 History metformin 500 mg PO DAILY 08/04/19 08/04/19 History metolazone 5 mg PO UD 08/04/19 08/04/19 History tramadol 50 mg PO Q6H PRN 08/04/19 08/04/19 History Past Med/Surg History Medical History Acute leg pain (Inactive) Bladder cancer CURRENTLY BEING TREATED W/ CHEMOTHERAPY Bladder cancer metastasized to pelvic region (Acute) BPH (benign prostatic hyperplasia) (Chronic) Chronic back pain Chronic respiratory failure (Chronic) Constipation COPD (chronic obstructive pulmonary disease) (Chronic) COPD (chronic obstructive pulmonary disease) (Chronic) DVT prophylaxis Elevated PSA (Chronic) Goals of care, counseling/discussion H/O hematuria (Resolved) H/O malignant neoplasm of skin (Chronic) Hyperlipidemia (Chronic) Hypertension (Resolved) Inguinal hernia BL Left leg swelling (Inactive) Non-small cell lung cancer (Chronic) CURRENTLY BEING TREATED W/ CHEMOTHERAPY Opioid dependence (Chronic) Osteoarthritis Stroke (Chronic) 2009 - NO PERIPHERAL VISION RT SIDE - NO NEUROLOGIST Umbilical hernia Urothelial carcinoma (Chronic) Surgical History H/O hand surgery (Resolved) H/O Moh's micrographic surgery for skin cancer (Resolved) H/O prostate biopsy (Acute) H/O prostatectomy History of bronchoscopy W/ BIOPSY History of colonoscopy History of surgery TRANSURETHRAL RESECTION OF BLADDER TUMOR X 3 History of surgery PLACEMENT OF MEDIPORT W/ REMOVAL History of ureter stent W/ REMOVAL Family History Father , 69yo [place], DM, arthritis, HTN Diabetes Cardiac disorder Hypertension Mother , age 84 from stroke Cardiac disorder Hypertension Brother Diabetes Cardiac disorder Hypertension Cancer, face Sister History of kidney cancer Hypertension Unknown Lung cancer Leukemia Basal cell carcinoma Social History Preferred Language: Syriac Communication Ability: Effective Visual Impairment: No Limitations Hearing Ability: Hard of Hearing [employer] Work[employer] Required: No Beliefs That Will Affect Care: None marital status: marital status details: 1 son and 3 daughters Current Living Situation: Alone Current Living Situation Comment: apartment current occupational status: retired 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 Feels Safe at Home: Yes Smoking Status: Former smoker Tobacco Type: cigarettes ; Cigarettes Per Day: 20 ; Second Hand Exposure: No ; Hx Alcohol Use: No Hx Substance Use: No caffeine: Yes (3 cups/day) during the past year weight has: decreased > 10 lbs Review of Systems Constitutional: + fever; no chills, no weakness, no weight loss and no weight gain Eyes: as per Subjective / HPI Respiratory: + cough, + dyspnea and + sputum production; no chest congestion, no dyspnea on exertion and no hemoptysis Cardiovascular: no chest pain, no orthopnea, no palpitations, no lightheadedness and no edema Gastrointestinal: no abdominal pain, no nausea, no vomiting, no constipation and no diarrhea/loose stools Musculoskeletal: + back pain; no neck pain, no radicular pain, no joint pain, no stiffness and no myalgia Integumentary: no rash Neurologic: no gait abnormality, no unsteadiness, no falls and no generalized weakness Physical Exam Constitutional: cooperative; no acute distress Neck: trachea midline, no thyromegaly + thick neck Respiratory: normal respiratory effort Auscultation: + diminished lung sounds, + rhonchi and + wheezes; no crackles and no rales Cardiovascular: Rate/Rhythm: regular rate and regular rhythm Heart Sounds: normal S1 and normal S2 Vessels: no carotid bruit Extremities: + pedal edema Gastrointestinal (Abdomen): Inspection/Auscultation: abdomen normal to inspection Percussion/Palpation: abdomen soft; abdomen nontender, no guarding, abdomen not rigid and no hepatosplenomegaly Skin: no rashes, warm and dry Results & Data Vital Signs (Past 12 Hours) Vital Signs Temp Pulse Pulse Resp BP BP Pulse Ox 08/04/19 12:45 99 H 18 129/76 98 08/04/19 11:35 112 H 22 117/78 97 08/04/19 10:38 109 H 16 101/72 94 08/04/19 10:09 94 08/04/19 09:41 94 08/04/19 09:35 37.8 C H 115 H 26 H 118/77 85 L Laboratory Results This is a 12.3, hemoglobin 11.8, hematocrit of 37.2, platelet count 204. Sodium 135, potassium 3.9, chloride 96,, dioxide 33, BUN of 12 creatinine 1.05 which is baseline. Glucose of 160. Calcium 10.5. LFTs are normal. Lipase is 37. Patient is negative for influenza. Urinalysis has not yet been obtained. Diagnostic Findings XR chest 2V PA/lateral CLINICAL HISTORY: back pain, fever, lung CA COMPARISON STUDY: 08/04/2019 12:44 AM FINDINGS: No change compared to the prior study. All findings previously described appear similar. There is a emphysematous bleb at the left lung base which is improved in definition on the current exam. IMPRESSION: No change compared to the prior study. Chronic and pre-existing findings are stable --- XR thoracic spine 3V routine CLINICAL HISTORY: mid back pain, lung CA COMPARISON STUDY: Chest CT March 31, 2019. FINDINGS: Right paraspinal mass at the T7 level shown on CT of March 31, 2019 is not well seen on this exam. Pathologic T7 compression fracture is similar to prior exam. There are also fractures of T5 and T6 with suspected interval increase in loss of height of T5. There may also be a T8 fracture. Focal levoscoliosis of the thoracic spine is noted at this level. IMPRESSION: Redemonstration of a T7 pathologic fracture as shown on CT of March 31, 2019. Associated paraspinal mass not well seen on this exam. Suspected additional T5, T6 and T8 fractures, as above. --- US venous doppler LE RT CLINICAL HISTORY: right leg swelling, lung CA COMPARISON STUDY: No previous studies for comparison. FINDINGS: Real-time and color flow Doppler imaging were performed. Flow was seen within the femoral, popliteal and calf veins with no intraluminal thrombus demonstrated. The saphenous vein is patent. IMPRESSION: No evidence of deep venous thrombosis. PG Care Time/CCT Total # of Minutes Spent Total Time Spent with Patient: Total time spent is greater than 50% in coordination of care (as documented) at patient's floor/unit and/or counseling patient: Coding Level of Care Code 06012 Initial Inpt Care Lvl 3 Diagnoses Compression fracture of body of thoracic vertebra S22.000A Stage 4 lung cancer C34.90 Chronic respiratory failure with hypoxia and hypercapnia J96.11; J96.12 SIRS (systemic inflammatory response syndrome) R65.10 DM w/o complication type II E11.9
[2019-08-04 13:18] LABS: Appearance Urine Clear (Clear); Bacteria Urine Automated Negative (Negative); Bilirubin Urine Negative (Negative); Blood Urine 3+ (Negative); Color Urine Yellow; Epithelial Cell Urine Auto >30 /lpf (0-5); Glucose Urine UA Negative (Negative); Ketones Urine Trace (Negative); Leukocyte Esterase Urine Trace (Negative); Nitrite Urine Negative (Negative); Protein Urine 1+ (Negative); RBC Urine Automated >30 /hpf (0-4); Specific Gravity Urine 1.016 (1.000-1.030); Urobilinogen Urine Negative (Negative)
[2019-08-04] MEDS ORDERED: guaiFENesin SUGAR FREE 100 MG/5 ML UDC PO PRN (15:20)
[2019-08-04] MEDS ORDERED: GLUCOSE 40% GEL 15 GM TUBE PO PRN (15:20)
[2019-08-04] MEDS ORDERED: haloperidoL 1 MG TAB PO PRN (15:20)
[2019-08-04] MEDS ORDERED: ONDANSETRON INJ 2 MG/ML 2 ML VIAL IV PRN (15:20)
[2019-08-04] MEDS ORDERED: SODIUM CHLORIDE 0.65% NA SOLN 45 ML (OCEAN) PRN (15:20)
[2019-08-04] MEDS ORDERED: methylPREDNISolone 125 MG/2 ML VIAL IV SCH (15:20)
[2019-08-04] MEDS ORDERED: CARBOHYDRATES FOR HYPOGLYCEMIA PO PRN (15:20)
[2019-08-04] MEDS ORDERED: GLUCAGON FOR INJ 1 MG VIAL SQ PRN (15:20)
[2019-08-04] MEDS ORDERED: DEXTROSE 50% 50 ML SYRINGE IV PRN (15:20)
[2019-08-04] MEDS ORDERED: NON-FORMULARY MEDICATION (Azelastine 1 SPRAYS) INTNAS PRN (15:20)
[2019-08-04] MEDS ORDERED: GLUCOSE 10 TABS/TUBE PO PRN (15:20)
[2019-08-04] MEDS ORDERED: ACETAMINOPHEN 325 MG TAB PO PRN (15:20)
[2019-08-04] MEDS ORDERED: cefTRIAXone SODIUM 1,000 MG in DEXTROSE 5% 50 ML IV ONE (15:45)
[2019-08-04] MEDS ORDERED: PHARMACY GLYCEMIC MGMT CONSULT PRN (16:15)
[2019-08-04] MEDS: DOXYCYCLINE HYCLATE 100 MG in DEXTROSE 5% 100 ML IV SCH ×2 (16:34→22:14)
[2019-08-04] MEDS: methylPREDNISolone 60 MG in SYRINGE 0 ML IV SCH (16:34)
[2019-08-04] MEDS: METHADONE HCL 10 MG TAB PO SCH ×2 (16:48→22:13)
[2019-08-04] MEDS: INSULIN ASPART 100 UNITS/ML 3 ML PEN SC SCH ×2 (18:20→20:41)
[2019-08-04] MEDS: TERAZOSIN HCL 1 MG CAP PO SCH (20:40)
[2019-08-04] MEDS: MAGNESIUM OXIDE 400 MG TAB PO SCH (20:40)
[2019-08-04] MEDS: SENNA 8.6 MG TAB PO SCH (20:40)
[2019-08-04] MEDS: AMLODIPINE BESYLATE 5 MG TAB PO SCH (20:40)
[2019-08-04] MEDS: HEPARIN SOD 5,000 UNIT/0.5 ML VIAL SQ SCH (20:45)
[2019-08-04] MEDS ORDERED: INSULIN HUMAN NPH SC ONE (21:15)
[2019-08-05] MEDS: INSULIN ASPART 100 UNITS/ML 3 ML PEN SC SCH ×6 (01:29→19:40)
[2019-08-05] MEDS: HYDROmorphone INJ 0.5 MG/0.5 ML SYR IV PRN ×2 (03:25→19:31)
[2019-08-05] MEDS: methylPREDNISolone 60 MG in SYRINGE 0 ML IV SCH (03:50)
[2019-08-05] MEDS: METHADONE HCL 10 MG TAB PO SCH ×4 (05:16→23:19)
[2019-08-05] MEDS: HEPARIN SOD 5,000 UNIT/0.5 ML VIAL SQ SCH ×3 (05:20→19:43)
[2019-08-05 06:34] LABS: Hematocrit (blood only) 35.6 % (42-52); Hemoglobin 11.5 g/dL (14.0-18.0); Immature Granulocytes % (auto) 1.3 %; Lymphocytes # (auto) 0.56 K/uL (1.2-3.4); Mean Corpuscular Hemoglobin 31.2 pg (25-34); Mean Corpuscular Hgb Conc 32.3 g/dL (32-36); Mean Corpuscular Volume 96.5 fL (80-100); Mean Platelet Volume 9.7 fL (7.4-10.4); Monocytes # (auto) 0.19 K/uL (0.11-0.59); Monocytes % (auto) 2.4 %; Neutrophils # (auto) 7.15 K/uL (1.4-6.5); Neutrophils % (auto) 89.3 %; Platelet Count 173 K/uL (130-400); RDW Coefficient of Variation 15.5 % (11.5-14.5); RDW Standard Deviation 54.5 fL (36.4-46.3); Red Blood Count 3.69 M/uL (4.7-6.1)
[2019-08-05 06:50] LABS: Estimated Average Glucose 169 mg/dl; Hemoglobin A1C 7.5 % (4.5-5.6)
[2019-08-05 07:01] LABS: BUN Creatinine Ratio 19.2 (10-20); Creatinine Clr Calc Pharmacy 82.9 ml/min; Est GFR (African American) 87.8; Est GFR (Non-African American) 75.8; Magnesium 2.2 mg/dl (1.8-2.4); Potassium 4.3 mmol/L (3.5-5.1)
[2019-08-05] MEDS ORDERED: INSULIN HUMAN NPH SC SCH (07:30)
--- NOTE | 2019-08-05 07:56 | Pharmacy Report ---
Glycemic Control Consultation - Date of Service August 05, 2019 - Scope Scope: Glycemic Pharmacist consulted for glycemic control and to write orders per [facility] inpatient glycemic control protocol. - Objective Weight: 107.7 kg Accuchecks BSG (last 24hrs): 08/04/19 08/04/19 08/04/19 09:47 16:37 20:27 Glucose 160 H POC Glucose 138 H 196 H 08/05/19 08/05/19 08/05/19 01:27 03:45 06:06 Glucose 127 H POC Glucose 165 H 197 H 08/05/19 07:37 Glucose POC Glucose 129 H Laboratory Data (last 24hrs): 08/04/19 08/05/19 09:47 06:06 Potassium 3.9 4.3 Carbon Dioxide 33 H 33 H Anion Gap 6.0 5.0 Creatinine 1.05 0.99 Est Cr Clr Drug Dosing 78.6 82.9 HbA1c: Hemoglobin A1c 7.5 % (4.5-5.6) H 08/05/19 06:06 - Recent Pertinent Medications Outpatient Anti-diabetic Regimen: * Glimepiride 2mg PO Daily * Metformin ER 500mg daily * A1c = 7.5 % 08/05/19 The patient is currently receiving: * Basal insulin: NPH 15 units x 1 dose last night * Correctional Insulin: Novolog Correction per scale ACHS Goal Range: Low 110 mg/dL - High 140 mg/dL Correction Factor: 18 mg/dL/unit * Prandial insulin: Per carb ratio of 1 unit per 5 grams CHO consumed * Oral Agents: On Hold Risk Factors for Insulin Resistance: * Steroids: Solu-medrol 60mg IV Q12H * Infection: IV Doxycycline, Rocephin * Diet: Type 2 DM - Assessment & Plan Assessment & Plan: ASSESSMENT: * 74 year old male admitted with back pain, 3 compression fractures of thoracic spine and SIRS, possible COPD exacerbation/pneumonia. PMH Significant for stage 4 lung cancer, with [facility] hospice at home, COPD. * Patient known to glycemic service for previous admissions on steroids * Will give NPH with Solu-medrol doses to match pharmacokinetics with hyperglycemic effects of steroids and continue tight CF/CR. * Will adjust insulin regimen as steroids are changed. PLAN FOR INPATIENT GLYCEMIC CONTROL: * Holding outpatient oral diabetes medications * Oral agents are not recommended for inpatient use d/t drug interactions, changing PO intake, and difficulty titrating for acute hyper/hypoglycemia. ADA recommends re-initiating outpatient oral agents 1-2 days prior to discharge if/when appropriate if they were held on admission. * Basal insulin * NPH 15 units units SQ BID at 0400 and 1600 with IV Solu-medrol (hold if solu-medrol held) * Bolus insulin * NovoLog per scale ACHS or Q6hrs while NPO * Goal Range: Low 110 mg/dL - High 140 mg/dL * Correction Factor: 18 mg/dL/unit * Nutritional / Prandial insulin per carb ratio of 1 unit per 5 grams CHO consumed * Please note that the plan above was derived based on current level of insulin resistance and hospital stress. These recommendations are appropriate for inpatient admission only. Plan of care upon discharge will need to be reassessed to avoid potential outpatient hypo/hyperglycemia. Thank you.
[2019-08-05] MEDS: CHOLECALCIFEROL 1,000 UNITS 25 MCG TAB PO SCH (08:34)
[2019-08-05] MEDS: SENNA 8.6 MG TAB PO SCH ×2 (08:34→19:44)
[2019-08-05] MEDS: PANTOprazole 40 MG TAB PO SCH (08:34)
[2019-08-05] MEDS: POTASSIUM CHLORIDE 20 MEQ TABCR PO SCH (08:34)
[2019-08-05] MEDS: MAGNESIUM OXIDE 400 MG TAB PO SCH ×2 (08:34→19:47)
[2019-08-05] MEDS: metOLazone 5 MG TABLET PO SCH (08:34)
[2019-08-05] MEDS: FINASTERIDE 5 MG TAB PO SCH (08:35)
[2019-08-05] MEDS: CYANOCOBALAMIN 500 MCG TABLET (VITAMIN B-12) PO SCH (08:35)
[2019-08-05] MEDS: FUROSEMIDE 40 MG TAB PO SCH (08:35)
[2019-08-05] MEDS: PYRIDOXINE HCL 50 MG TAB PO SCH (08:35)
[2019-08-05] MEDS: SPIRONOLACTONE 25 MG TAB PO SCH (08:35)
[2019-08-05] MEDS: FLUTICASONE/VILANTEROL 100/25MCG 14 PUFFS/INHALER INH SCH (08:36)
[2019-08-05] MEDS: UMECLIDINIUM BROMIDE 62.5MCG/BLISTER 7 PUFFS/INHALER INH SCH (08:36)
[2019-08-05] MEDS ORDERED: METFORMIN HCL ER 500 MG TABCR PO SCH (09:00)
[2019-08-05] MEDS ORDERED: GLIMEPIRIDE 2 MG TAB PO SCH (09:00)
[2019-08-05] MEDS ORDERED: cefTRIAXone SODIUM 2,000 MG in DEXTROSE 5% 50 ML IV SCH (09:00)
--- NOTE | 2019-08-05 09:02 | Hospitalist Progress Note ---
Date of Service August 05, 2019 Assessment & Plan (1) Compression fracture of body of thoracic vertebra: Mr. Shetty is a 74 yo M with metastatic lung cancer on home hospice who was admitted 08/03 for intractable back pain, found to have multiple thoracic compression factures. - patient with known metastatic paraspinal lesion in thoracic spine, likely etiology of compression fractures - fractures at T5-T8; T7 has been visualized on previous xray films - continue home methadone 10mg, QID and tramadol 50mg, q6h, prn - additional pain control with lidocaine patch, Tylenol 1,000mg, PO, q8h, Ibuprofen, 600mg, QID, prn, and Dilaudid 0.5mg, IV, Q4h prn - can consider back brace if movement provokes significant pain - kyphoplasty unlikely to be of use as patient has multiple fractures, likely caused by soft tissue infiltrate - PT/OT recommend patient suitable to return home on hospice once pain is under control; case maker working to arrange [facility] assistance [facility] (2) Stage 4 lung cancer: - Stage IV lung carcinoma with mets to the spine - no longer undergoing treatment, on hospice (3) Chronic respiratory failure with hypoxia and hypercapnia: - currently satting 97% on 4L via NC - wearing NC in mouth as it dries his nose out - wean O2 as tolerated (4) SIRS (systemic inflammatory response syndrome): - criteria met on admission with WBC count and HR - WBC normalized today - procal normal - blood cultures showing no growth to date - CXR showing no acute changes human resources representative of infection - given 1 dose of IV Rocephin in ED; discontinued today as patient showing no acute signs of infection - patient afebrile, HR normal at 87, Resp rate normal at 6 (5) DM w/o complication type II: - holding home regimen of metformin and glimepiride - sliding scale insulin while in hospital - diabetic diet (6) COPD (chronic obstructive pulmonary disease): - patient was SOB on admission - CXR showing no acute process - started on IV methylprednisolone in ED, since discontinued as patient not felt to be in acute exacerbation - continue home inhalers (7) Essential (primary) hypertension: - continue home norvasc (8) BPH (benign prostatic hyperplasia): - continue home finasteride and terazosin (9) Acute on chronic diastolic CHF (congestive heart failure): - continue home direutic regimen: furosemide 40mg qAM, spironalactone 25mg daily, metolazone M-F, 5mg - continue KCl 40mg qdaily (10) GERD (gastroesophageal reflux disease): - protonix 40mg Code: DNR/DNI DVT ppx: Heparin, 5,000 units, SQ, daily Diet: DM 2 Dispo: Med/Surg Admission and Anticipated Discharge Date Admission Date: August 04, 2019 Supervising Physician Co-Signing Physician Notes I personally examined the patient and verified all tam points of history and exam, discussed case, and agree with decision making with Dr Correa. back pain - between shoulder blades. no f/c/s. cough the same as always. sputum the same as always. relates shakes - but on further description is more large amplitude shakes/twitches that happen after leaning on muscles for a while etc vitals noted nad heent nc at mmm lungs coarse b/l no r/r/w no focal findings no accessory muscles good effort skin no rashes no pallor or icterus. tender along mid thoracic spine and paraspinals back pain / compression fractures - concern is metastatic. since on hospice/after discussions is not for further cancer treatment no need / no benefit for further imaging. presumably could be osteoporotic but mets most likely. pain control, increase mobility, work towards home w hospice if at all possible SIRS - after further review nothing that appears acutely infectious. stop abx. follow. wbc technically >12 but nonspecific, HR most likely from pain, temp low grade not truly a fever, nothing as far as SOFA, follow. otherwise as above Subjective Patient reporting significant back pain. pain worse with movement. Expresses fr ustration with condition. Verbalizes overall discouraged attitude. Review of Systems Musculoskeletal: + back pain; no radicular pain Physical Exam Constitutional: WD/WN, vitals as above Eyes: + anicteric sclerae ENMT: external ear and nose normal, oropharynx normal Neck: normal visual inspection and trachea midline Respiratory: normal respiratory effort Auscultation: + wheezes (on expiration ) Cardiovascular: RRR, no murmur, no edema Heart Sounds: normal S1 and normal S2 Musculoskeletal: Spine: + paraspinal tenderness; + thoracic spine abnormal to inspection (+midline tenderness) Skin: no rashes, warm and dry Psychiatric: A+Ox3, euthymic affect Results & Data ([facility]) Vital Signs (Past 12 Hours) Vital Signs Temp Pulse Pulse Resp BP Pulse Ox 08/05/19 07:17 36.5 C 81 16 107/70 98 08/05/19 03:56 36.7 C 92 H 20 118/75 98 08/05/19 02:14 92 H 08/04/19 23:00 36.8 C 87 20 109/67 92 Resident Activity Tracking Resident Involvement: Resident Care Provided Care Provided: Adult Hospital Medicine (1) COPD (chronic obstructive pulmonary disease) COPD type: unspecified COPD Qualified Code(s): J44.9 - Chronic obstructive pulmonary disease, unspecified
[2019-08-05] MEDS: DOXYCYCLINE HYCLATE 100 MG in DEXTROSE 5% 100 ML IV SCH (09:35)
[2019-08-05] MEDS: LIDOCAINE 5% 1 PATCH TD SCH (11:02)
[2019-08-05] MEDS: ACETAMINOPHEN 500 MG TAB PO SCH ×2 (11:02→17:31)
--- NOTE | 2019-08-05 15:05 | Billing Data ---
Date of Service August 05, 2019 Coding Level of Care Code 61583 Subseq Hosp Care Lvl 3
[2019-08-05] MEDS: TRAMADOL HCL 50 MG TABLET PO PRN (15:45)
[2019-08-05] MEDS: TERAZOSIN HCL 1 MG CAP PO SCH (19:45)
[2019-08-05] MEDS: AMLODIPINE BESYLATE 5 MG TAB PO SCH (19:46)
[2019-08-06] MEDS: ACETAMINOPHEN 500 MG TAB PO SCH ×3 (03:20→17:49)
[2019-08-06] MEDS: METHADONE HCL 10 MG TAB PO SCH ×4 (05:45→22:23)
[2019-08-06] MEDS: HEPARIN SOD 5,000 UNIT/0.5 ML VIAL SQ SCH ×3 (05:46→20:23)
[2019-08-06] MEDS: DICLOFENAC SOD 1% GEL 100 GM TUBE EXT PRN ×2 (05:48→10:10)
--- NOTE | 2019-08-06 06:56 | Hospitalist Progress Note ---
Date of Service August 06, 2019 Assessment & Plan (1) Compression fracture of body of thoracic vertebra: Mr. Shetty is a 74 yo M with metastatic lung cancer on home hospice who was admitted 08/03 for intractable back pain, found to have multiple thoracic compression factures. 1) Multiple Thoracic Vertebra Compression Fractures - patient with known metastatic paraspinal lesion in thoracic spine, likely etiology of compression fractures -Pain worsening today and now radiating to the R side, concern for continued/worsening compression of vertebrae - fractures at T5-T8; T7 has been visualized on previous xray films - continue home methadone 10mg, QID and tramadol 50mg, q6h, prn - additional pain control with lidocaine patch, Tylenol 1,000mg, PO, q8h, Ibuprofen, 600mg, QID, prn, and Dilaudid 0.5mg, IV, Q4h prn -Increasing Dilaudid to 1mg due to patient's worsening symptoms. 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 5) DMII - holding home regimen of metformin and glimepiride - sliding scale insulin while in hospital - diabetic diet 6) COPD - CXR on admission - continue home inhalers 7) HTN - continue home norvasc 8) BPH - continue home finasteride and terazosin 9) CHF - continue home diuretic regimen: furosemide 40mg qAM, spironolactone 25mg daily, metolazone M-F, 5mg - continue KCl 40mg qd - Does not appear to be in CHF exacerbation at this time. 10) GERD - protonix 40mg Code: DNR/DNI DVT ppx: Heparin, 5,000 units, SQ, daily Diet: DM 2 Dispo: Med/Surg (2) Stage 4 lung cancer: (3) Chronic respiratory failure with hypoxia and hypercapnia: (4) SIRS (systemic inflammatory response syndrome): (5) DM w/o complication type II: (6) COPD (chronic obstructive pulmonary disease): (7) Essential (primary) hypertension: (8) BPH (benign prostatic hyperplasia): (9) Acute on chronic diastolic CHF (congestive heart failure): (10) GERD (gastroesophageal reflux disease): Admission and Anticipated Discharge Date Admission Date: August 04, 2019 Supervising Physician Co-Signing Physician Notes I personally examined the patient and verified all tam points of history and exam, discussed case, and agree with decision making with Dr Cuevas. back pain worse despite increase in pain meds. also seems to the right side more now. vitals noted nad heent nc at mmm breathing unlabored no accessory muscles good effort skin no rashes no pallor or icterus. tender along mid thoracic spine and paraspinals, also more pain to R/scapular area now. back pain / compression fractures - concern is metastatic. escalated pain meds yesterday without much benefit - and new radiation to R side raises concern on progression w mets. brace, increase pain meds further. may need spine involvement to stabilize depending on progression of sx. PT/OT ongoing eval and treat SIRS - after further review nothing that appears acutely infectious. stopped abx. follow. no s/s worsening infection. otherwise as above Subjective Patient noting significantly increased pain this morning. States that his pain is now wrapping around his R side in towards his chest. Currently a 7/10 even with an extra dose of Dilaudid. Stating that after his medications were adjusted yesterday his pain has actually continued to worsen. Review of Systems Musculoskeletal: + back pain, + radicular pain (from back to side and chest ), + limited range of motion, + myalgia and + muscle weakness (R shoulder ) Physical Exam Constitutional: WD/WN, vitals as above cooperative and + in distress; no acute distress Eyes: + anicteric sclerae Musculoskeletal: Spine: + paraspinal tenderness; + thoracic spine abnormal to inspection (+midline tenderness) Midline tenderness around level of T7 that radiates laterally to the R and swings around to his lateral chest wall. Increasingly limited ROM of the R shoulder 2/2 pain. Results & Data ([facility]) Vital Signs (Past 12 Hours) Vital Signs Temp Pulse Resp BP Pulse Ox 08/06/19 03:11 36.5 C 99 H 20 135/76 95 08/05/19 23:31 36.4 C L 95 H 24 144/79 H 95 08/05/19 19:06 36.5 C 82 22 129/83 94 Resident Activity Tracking Resident Involvement: Resident Care Provided Care Provided: Adult Hospital Medicine (1) COPD (chronic obstructive pulmonary disease) COPD type: unspecified COPD Qualified Code(s): J44.9 - Chronic obstructive pulmonary disease, unspecified
[2019-08-06] MEDS: INSULIN ASPART 100 UNITS/ML 3 ML PEN SC SCH ×4 (08:45→20:24)
[2019-08-06] MEDS: PANTOprazole 40 MG TAB PO SCH (08:46)
[2019-08-06] MEDS: POTASSIUM CHLORIDE 20 MEQ TABCR PO SCH (08:47)
[2019-08-06] MEDS: CHOLECALCIFEROL 1,000 UNITS 25 MCG TAB PO SCH (08:47)
[2019-08-06] MEDS: SENNA 8.6 MG TAB PO SCH ×2 (08:47→21:14)
[2019-08-06] MEDS: FUROSEMIDE 40 MG TAB PO SCH (08:48)
[2019-08-06] MEDS: SPIRONOLACTONE 25 MG TAB PO SCH (08:48)
[2019-08-06] MEDS: PYRIDOXINE HCL 50 MG TAB PO SCH (08:48)
[2019-08-06] MEDS: FINASTERIDE 5 MG TAB PO SCH (08:48)
[2019-08-06] MEDS: MAGNESIUM OXIDE 400 MG TAB PO SCH ×2 (08:49→20:22)
[2019-08-06] MEDS: CYANOCOBALAMIN 500 MCG TABLET (VITAMIN B-12) PO SCH (08:49)
[2019-08-06] MEDS: LIDOCAINE 5% 1 PATCH TD SCH (08:50)
[2019-08-06] MEDS: TRAMADOL HCL 50 MG TABLET PO PRN (08:51)
[2019-08-06] MEDS: UMECLIDINIUM BROMIDE 62.5MCG/BLISTER 7 PUFFS/INHALER INH SCH (08:52)
[2019-08-06] MEDS: FLUTICASONE/VILANTEROL 100/25MCG 14 PUFFS/INHALER INH SCH (08:52)
[2019-08-06] MEDS: HYDROmorphone INJ 0.5 MG/0.5 ML SYR IV PRN (09:51)
[2019-08-06] MEDS: IBUPROFEN 600 MG TAB PO PRN ×2 (10:08→20:31)
[2019-08-06] MEDS ORDERED: HYDROmorphone INJ 0.5 MG/0.5 ML SYR IV STA (10:45)
--- NOTE | 2019-08-06 15:30 | Billing Data ---
Date of Service August 06, 2019 Coding Level of Care Code 74956 Subseq Hosp Care Lvl 3
[2019-08-06] MEDS: TERAZOSIN HCL 1 MG CAP PO SCH (20:21)
[2019-08-06] MEDS: AMLODIPINE BESYLATE 5 MG TAB PO SCH (20:22)
[2019-08-07] MEDS: ACETAMINOPHEN 500 MG TAB PO SCH ×3 (01:32→17:19)
[2019-08-07] MEDS: TRAMADOL HCL 50 MG TABLET PO PRN ×4 (01:34→22:19)
[2019-08-07] MEDS: HYDROmorphone INJ 1 MG/ML SYRINGE IV PRN ×4 (02:40→18:46)
[2019-08-07] MEDS: HEPARIN SOD 5,000 UNIT/0.5 ML VIAL SQ SCH ×3 (05:04→21:06)
[2019-08-07] MEDS: METHADONE HCL 10 MG TAB PO SCH (05:04)
[2019-08-07] MEDS: MAGNESIUM OXIDE 400 MG TAB PO SCH ×2 (07:55→21:04)
[2019-08-07 07:56] LABS: Hematocrit (blood only) 34.7 % (42-52); Mean Corpuscular Hgb Conc 31.7 g/dL (32-36); Mean Corpuscular Volume 97.7 fL (80-100); Mean Platelet Volume 9.7 fL (7.4-10.4); Nucleated RBC # (auto) 0.02 K/uL (0-0); Nucleated RBC % (auto) 0.2 %; Platelet Count 170 K/uL (130-400); RDW Standard Deviation 57.1 fL (36.4-46.3); Red Blood Count 3.55 M/uL (4.7-6.1); White Blood Count 8.65 K/uL (4.8-10.8)
[2019-08-07] MEDS: PANTOprazole 40 MG TAB PO SCH (07:56)
[2019-08-07] MEDS: SPIRONOLACTONE 25 MG TAB PO SCH (07:56)
[2019-08-07] MEDS: SENNA 8.6 MG TAB PO SCH ×2 (07:56→21:04)
[2019-08-07] MEDS: POTASSIUM CHLORIDE 20 MEQ TABCR PO SCH (07:56)
[2019-08-07] MEDS: FUROSEMIDE 40 MG TAB PO SCH (07:57)
[2019-08-07] MEDS: FINASTERIDE 5 MG TAB PO SCH (07:57)
[2019-08-07] MEDS: CHOLECALCIFEROL 1,000 UNITS 25 MCG TAB PO SCH (07:57)
[2019-08-07] MEDS: PYRIDOXINE HCL 50 MG TAB PO SCH (07:57)
[2019-08-07] MEDS: DICLOFENAC SOD 1% GEL 100 GM TUBE EXT PRN ×3 (07:58→21:12)
[2019-08-07] MEDS: CYANOCOBALAMIN 500 MCG TABLET (VITAMIN B-12) PO SCH (07:58)
[2019-08-07] MEDS: LIDOCAINE 5% 1 PATCH TD SCH (08:05)
[2019-08-07] MEDS: UMECLIDINIUM BROMIDE 62.5MCG/BLISTER 7 PUFFS/INHALER INH SCH (08:05)
[2019-08-07] MEDS: FLUTICASONE/VILANTEROL 100/25MCG 14 PUFFS/INHALER INH SCH (08:06)
[2019-08-07] MEDS: INSULIN ASPART 100 UNITS/ML 3 ML PEN SC SCH ×4 (09:01→21:05)
--- NOTE | 2019-08-07 09:13 | Hospitalist Progress Note ---
Date of Service August 07, 2019 Assessment & Plan (1) Compression fracture of body of thoracic vertebra: Mr. Shetty is a 74 yo M with metastatic lung cancer on home hospice who was admitted 08/03 for intractable back pain, found to have multiple thoracic compression factures. 1) Multiple Thoracic Vertebra Compression Fractures - patient with known metastatic paraspinal lesion in thoracic spine, likely etiology of compression fractures -Pain worsened on 08/06/19 and now radiating to the R side, concern for continued/worsening compression of vertebrae -Upon reassessment 08/07/19 he notes that the pain is still present and has not really improved, but that the pain and weakness of his R arm have had improvement since the day prior. - fractures at T5-T8; T7 has been visualized on previous xray films -Increased home methadone 10mg to 15mg QID today. - Tramadol 50mg, q6h, prn - additional pain control with lidocaine patch, Tylenol 1,000mg, PO, q8h, Ibuprofen, 600mg, QID, prn, and Dilaudid 0.5mg, IV, Q4h prn -Increased Dilaudid to 1mg yesterday due to patient's worsening symptoms. - can consider back brace if movement provokes significant pain -Patient agreeable to back-brace at this time, will trial and consult Orthotics - kyphoplasty unlikely to be of use as patient has multiple fractures, likely caused by soft tissue infiltrate - PT/OT recommend patient suitable to return home on hospice once pain is under control; ed case manager working to arrange [facility] additional [facility] - At this time patient does not feel safe going back to his home apartment alone, would like further discussions with Case Management. 2) Stage 4 Lung Cancer - Stage IV lung carcinoma with mets to the spine - no longer undergoing treatment, on hospice 3) Chronic RF w/ hypoxia and hypercapnia - currently satting 97% on 4L via NC - wearing NC in mouth as it dries his nose out - wean O2 as tolerated 4) SIRS - criteria met on admission with WBC count and HR - WBC normalized - procal normal - blood cultures showing no growth to date - CXR showing no acute changes procurement representative of infection - given 1 dose of IV Rocephin in ED; discontinued today as patient showing no acute signs of infection - Clinically stable. 5) DMII - holding home regimen of metformin and glimepiride - sliding scale insulin while in hospital - diabetic diet 6) COPD - CXR on admission - continue home inhalers 7) HTN - continue home norvasc 8) BPH - continue home finasteride and terazosin 9) CHF - continue home diuretic regimen: furosemide 40mg qAM, spironolactone 25mg daily, metolazone M-F, 5mg - continue KCl 40mg qd - Does not appear to be in CHF exacerbation at this time. 10) GERD - protonix 40mg Code: DNR/DNI DVT ppx: Heparin, 5,000 units, SQ, daily Diet: DM 2 Dispo: Med/Surg (2) Stage 4 lung cancer: - Stage IV lung carcinoma with mets to the spine - no longer undergoing treatment, on hospice (3) Chronic respiratory failure with hypoxia and hypercapnia: - currently satting 97% on 4L via NC - wearing NC in mouth as it dries his nose out - wean O2 as tolerated (4) SIRS (systemic inflammatory response syndrome): - criteria met on admission with WBC count and HR - WBC normalized today - procal normal - blood cultures showing no growth to date - CXR showing no acute changes procurement representative of infection - given 1 dose of IV Rocephin in ED; discontinued today as patient showing no acute signs of infection - patient afebrile, HR normal at 87, Resp rate normal at 6 (5) DM w/o complication type II: - holding home regimen of metformin and glimepiride - sliding scale insulin while in hospital - diabetic diet (6) COPD (chronic obstructive pulmonary disease): - CXR on admission - continue home inhalers (7) Essential (primary) hypertension: - continue home norvasc (8) BPH (benign prostatic hyperplasia): - continue home finasteride and terazosin (9) Acute on chronic diastolic CHF (congestive heart failure): - continue home direutic regimen: furosemide 40mg qAM, spironalactone 25mg daily, metolazone M-F, 5mg - continue KCl 40mg qdaily (10) GERD (gastroesophageal reflux disease): - protonix 40mg Code: DNR/DNI DVT ppx: Heparin, 5,000 units, SQ, daily Diet: DM 2 Dispo: Med/Surg Admission and Anticipated Discharge Date Admission Date: August 04, 2019 Supervising Physician Co-Signing Physician Notes I personally examined the patient and verified all tam points of history and exam, discussed case, and agree with decision making with Dr Cuevas. back pain off and on -- seems mostly bad with movement today but notes that he can't find a comfortable position. pain around R side is less and R arm pain seems less vitals noted nad heent nc at mmm breathing unlabored no accessory muscles good effort skin no rashes no pallor or icterus. tender along mid thoracic spine and paraspinals, also more pain to R/scapular area now. back pain / compression fractures - concern is metastatic. continue to escalate meds (today increase methadone slightly) - anticipate brace helping some. reassurred that R sided pain has regressed, if it progresses again would need to consider re-imaging and or ortho-spine for stabilizing but right now does not appear to be needed. reassured that he is now willing for rehab after discharge - PT/OT, case management. SIRS - after further review nothing that appears acutely infectious. stopped abx. follow. no s/s worsening infection. otherwise as above Subjective Patient noting that his pain has been waxing and waning. Was able to get a few hours of sleep overnight. States that his pain "feels worse" today, however, describes it as a 6/10. He does note that his R arm is feeling better today. He notes that he feels unsafe at this time returning home as he lives alone in an apartment and doesn't believe he'd be able to care for himself. He would like to discuss his options with Case Management about what his other discharge options may entail. Review of Systems Constitutional: + body aches (mainly back); no fever and no chills Respiratory: + dyspnea on exertion Cardiovascular: no chest pain Gastrointestinal: no abdominal pain and no nausea Musculoskeletal: + back pain, + radicular pain (from back to R side and chest ), + limited range of motion, + myalgia and + muscle weakness (R shoulder ) Physical Exam Constitutional: WD/WN, vitals as above cooperative and + in distress; no acute distress Eyes: + anicteric sclerae Musculoskeletal: Spine: + paraspinal tenderness; + thoracic spine abnormal to inspection (+midline tenderness) Spine: + paraspinal tenderness; + thoracic spine abnormal to inspection (+midline tenderness) Midline tenderness around level of T7 that radiates laterally to the R and around to his lateral chest wall. Limited ROM of the R shoulder 2/2 pain, though improved since the day prior. Psychiatric: A+Ox3, euthymic affect Results & Data ([facility]) Vital Signs (Past 12 Hours) Vital Signs Temp Pulse Resp BP BP Pulse Ox 08/07/19 07:42 36.9 C 64 20 155/61 H 94 08/07/19 02:36 36.5 C 85 20 123/73 91 08/06/19 23:08 36.6 C 81 20 98/63 L 91 Resident Activity Tracking Resident Involvement: Resident Care Provided Care Provided: Adult Hospital Medicine (1) COPD (chronic obstructive pulmonary disease) COPD type: unspecified COPD Qualified Code(s): J44.9 - Chronic obstructive pulmonary disease, unspecified
[2019-08-07] MEDS: IBUPROFEN 600 MG TAB PO PRN ×2 (09:54→21:17)
[2019-08-07] MEDS: METHADONE HCL 5 MG TAB PO SCH ×3 (10:47→22:19)
--- NOTE | 2019-08-07 11:01 | Billing Data ---
Date of Service August 07, 2019 Coding Level of Care Code 08133 Subseq Hosp Care Lvl 2
--- NOTE | 2019-08-07 14:36 | Pharmacy Report ---
Pharmacy Glycemic Short Note 2 - Date of Service August 07, 2019 - Glycemic Short BSG Results (Last 24 hours): 08/06/19 08/06/19 08/07/19 16:55 20:00 08:09 POC Glucose 122 H 129 H 99 08/07/19 12:02 POC Glucose 114 H OUTPATIENT ANTIDIABETIC REGIMEN: * Glimepiride 2mg PO Daily * Metformin ER 500mg daily * A1c = 7.5 % 08/05/19 ASSESSMENT: 08/07/19 * Blood sugars ranging 99-163mg/dl over past 24 hours, 11 units of insulin used, all bolus insulin. * No changes in insulin regimen needed at this time. 08/05/19 * 74 year old male admitted with back pain, 3 compression fractures of thoracic spine and SIRS, possible COPD exacerbation/pneumonia. PMH Significant for stage 4 lung cancer, with [facility] hospice at home, COPD. * Patient known to glycemic service for previous admissions on steroids * Will give NPH with Solu-medrol doses to match pharmacokinetics with hyperglycemic effects of steroids and continue tight CF/CR. * Will adjust insulin regimen as steroids are changed. PLAN FOR INPATIENT GLYCEMIC CONTROL: * Holding outpatient oral diabetes medications * Oral agents are not recommended for inpatient use d/t drug interactions, changing PO intake, and difficulty titrating for acute hyper/hypoglycemia. ADA recommends re-initiating outpatient oral agents 1-2 days prior to discharge if/when appropriate if they were held on admission. * Bolus insulin * NovoLog per scale ACHS or Q6hrs while NPO * Goal Range: Low 110 mg/dL - High 140 mg/dL * Correction Factor: 20 mg/dL/unit * Nutritional / Prandial insulin per carb ratio of 1 unit per 7 grams CHO consumed PLAN FOR DISCHARGE: * A1c 7.5%, continue outpatient oral medications as prescribed.
[2019-08-07] MEDS: TERAZOSIN HCL 1 MG CAP PO SCH (21:03)
[2019-08-07] MEDS: AMLODIPINE BESYLATE 5 MG TAB PO SCH (21:05)
[2019-08-08] MEDS: HYDROmorphone INJ 1 MG/ML SYRINGE IV PRN ×3 (00:36→14:13)
[2019-08-08] MEDS: ACETAMINOPHEN 500 MG TAB PO SCH ×3 (01:21→17:07)
[2019-08-08] MEDS: METHADONE HCL 5 MG TAB PO SCH ×4 (04:21→22:22)
[2019-08-08] MEDS ORDERED: SODIUM CHLORIDE 0.9% 1000ML 500 ML IV ONE (06:03)
[2019-08-08] MEDS: DOCUSATE SODIUM 100 MG CAP PO PRN (06:32)
[2019-08-08] MEDS: HEPARIN SOD 5,000 UNIT/0.5 ML VIAL SQ SCH ×3 (06:34→20:08)
[2019-08-08] MEDS: FUROSEMIDE 40 MG TAB PO SCH (07:51)
[2019-08-08] MEDS: SPIRONOLACTONE 25 MG TAB PO SCH (07:51)
[2019-08-08] MEDS: FINASTERIDE 5 MG TAB PO SCH (07:51)
[2019-08-08] MEDS: MAGNESIUM OXIDE 400 MG TAB PO SCH ×2 (07:51→20:07)
[2019-08-08] MEDS: POTASSIUM CHLORIDE 20 MEQ TABCR PO SCH (07:51)
[2019-08-08] MEDS: SENNA 8.6 MG TAB PO SCH ×2 (07:52→20:07)
[2019-08-08] MEDS: CYANOCOBALAMIN 500 MCG TABLET (VITAMIN B-12) PO SCH (07:52)
[2019-08-08] MEDS: PANTOprazole 40 MG TAB PO SCH (07:52)
[2019-08-08] MEDS: CHOLECALCIFEROL 1,000 UNITS 25 MCG TAB PO SCH (07:52)
[2019-08-08] MEDS: PYRIDOXINE HCL 50 MG TAB PO SCH (07:52)
[2019-08-08] MEDS: LIDOCAINE 5% 1 PATCH TD SCH (07:52)
[2019-08-08] MEDS: metOLazone 5 MG TABLET PO SCH (07:52)
[2019-08-08] MEDS: FLUTICASONE/VILANTEROL 100/25MCG 14 PUFFS/INHALER INH SCH (07:53)
[2019-08-08] MEDS: UMECLIDINIUM BROMIDE 62.5MCG/BLISTER 7 PUFFS/INHALER INH SCH (07:53)
[2019-08-08] MEDS: INSULIN ASPART 100 UNITS/ML 3 ML PEN SC SCH ×4 (08:39→20:08)
[2019-08-08] MEDS: TRAMADOL HCL 50 MG TABLET PO PRN ×2 (09:28→15:57)
[2019-08-08] MEDS ORDERED: LACTULOSE SYRUP 30 GM/45 ML UDP PO STA (10:00)
--- NOTE | 2019-08-08 10:13 | Hospitalist Progress Note ---
Date of Service August 08, 2019 Assessment & Plan (1) Compression fracture of body of thoracic vertebra: Patient was admitted as a GIP. Patient has 3 compression fracture thoracic spine at T5, T6, and T8 likely new. There is also a older compression fracture at T7 seen on x-ray. Patient cannot tolerate MRI to confirm this. Patient failed outpatient therapy with seems responding well to IV Dilaudid. For now will continue to manage his pain. Discussed with palliative care team as initally plan was to have them involved. However they informed me that patient is a GIP patient and home hospice will be assisting. Patient had recently increased methadone on 08/07. will monitor. (2) Stage 4 lung cancer: Patient has stage IV lung carcinoma, is hospice. Patient follows with Dr. Gu. Consider consultation if necessary. (3) Chronic respiratory failure with hypoxia and hypercapnia: Patient's O2 saturation is fine with nasal cannula. He typically wears this in his mouth since he can not tolerate in his nose and seems to be effective. Can continue this is noted. 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 Will add sliding scale with an ADA d iet. (6) COPD (chronic obstructive pulmonary disease): - patient was SOB on admission - CXR showing no acute process - started on IV methylprednisolone in ED, since discontinued as patient not felt to be in acute exacerbation - continue home inhalers (7) Essential (primary) hypertension: (8) BPH (benign prostatic hyperplasia): (9) Acute on chronic diastolic CHF (congestive heart failure): (10) GERD (gastroesophageal reflux disease): Admission and Anticipated Discharge Date Admission Date: August 04, 2019 Subjective Patient is a 74 yo m reports having no bowel movements for the past 3 days. He states he normally has a BM bout 2-3 times a day. He feels like his abdomen is more bloated today and is having some mild abdominal pain. Patient denies any nausea, or vomiting. Review of Systems Review of Systems: All systems reviewed & are unremarkable except as noted in HPI & below Results & Data ([facility]) Vital Signs (Past 12 Hours) Vital Signs Temp Pulse Resp BP Pulse Ox 08/08/19 07:33 36.8 C 94 H 18 132/67 90 08/08/19 02:59 36.6 C 92 H 20 97/65 L 90 08/08/19 00:23 102/64 08/07/19 22:58 36.7 C 92 H 20 98/65 L 90 PG Care Time/CCT Total # of Minutes Spent Total Time Spent with Patient: Total time spent is greater than 50% in coordination of care (as documented) at patient's floor/unit and/or counseling patient: Coding Level of Care Code 87696 Subseq Hosp Care Lvl 3 Diagnoses Compression fracture of body of thoracic vertebra S22.000A Stage 4 lung cancer C34.90 Chronic respiratory failure with hypoxia and hypercapnia J96.11; J96.12 SIRS (systemic inflammatory response syndrome) R65.10 DM w/o complication type II E11.9 COPD (chronic obstructive pulmonary disease) J44.9 COPD type: unspecified COPD Essential (primary) hypertension I10 BPH (benign prostatic hyperplasia) N40.0 Acute on chronic diastolic CHF (congestive heart failure) I50.33 GERD (gastroesophageal reflux disease) K21.9 Time Spent (min) 35 (1) COPD (chronic obstructive pulmonary disease) COPD type: unspecified COPD Qualified Code(s): J44.9 - Chronic obstructive pulmonary disease, unspecified
--- NOTE | 2019-08-08 11:32 | Pharmacy Report ---
Pharmacy Glycemic Sign Off Nt - Date of Service August 08, 2019 - Assessment & Plan ASSESSMENT: * Pharmacy was consulted by Dr. Telles on 08/04/2019 for glycemic control and to write orders per [facility] inpatient glycemic control protocol. * Major changes made by pharmacy to antidiabetic regimen include: * Held outpatient oral DM medications * Initiated inpatient Basal-Bolus insulin regimen to account for steroid- induced hyperglycemia * Patient has been receiving/requiring ~ 8 units of insulin per day for adequate glycemic control * BSGs ranging 99 - 163 mg/dl * Regimen has only required minor adjustments over the past 48hrs to achieve this level of control * Do not anticipate further changes in patient status that would quickly deteriorate glycemic control (i.e. patient to be NPO for upcoming procedure, steroids tapering, starting tube feedings, etc). * Please see recommendations for outpatient antidiabetic regimen below. PLAN FOR INPATIENT GLYCEMIC CONTROL: No changes needed to current regimen. * Continue NovoLog per scale ACHS/Q6hrs while NPO * Goal range = 110 - 140 mg/dl * CF = 20 mg/dl/unit * CR = 1 unit for ever 7 g CHO consumed * Pharmacy is signing off of glycemic consult and will no longer be making adjustments to inpatient regimen. Please feel free to re-consult if needed. Thank you. DISCHARGE RECOMMENDATIONS: * A1c 7.5% on 08/05/2019 * Goal A1c < 8% based on age and comorbidities * Recommend resuming Metformin ER 500 mg PO daily and Glimepiride 2 mg PO daily upon discharge
--- NOTE | 2019-08-08 11:45 | Palliative Care Consultation ---
Date of Consultation August 08, 2019 Assessment & Plan (1) Goals of care, counseling/discussion: This is an unfortunate 74 year old male patient known to the Palliative Care Consult team and is a Home Hospice patient; presented to the hospital with intractable back pain and was diagnosed with a metastatic paraspinal lesion in his thoracic spine. Additional PMH includes: chronic respiratory failure on continuous home oxygen at 2-3LPM, DM type 2, hypertension, hyperlipidemia, benign prostatic hypertrophy, stage IV lung cancer. He has been experiencing chronic pain and is receiving Methadone, Dilaudid, Tramadol, and lidocaine patch, Tylenol, Ibuprofen for management. Palliative care is consulted to assist with providing pain management. (2) Chronic pain: Chronic pain type: due to neoplasm Qualified Code(s): G89.3 - Neoplasm related pain (acute) (chronic) (3) Compression fx, thoracic spine: (4) Metastatic lung cancer (metastasis from lung to other site): Laterality: right Qualified Code(s): C34.91 - Malignant neoplasm of unspecified part of right bronchus or lung (5) Acute on chronic diastolic CHF (congestive heart failure): History of Present Illness Reason for Consultation: Pain Management Requesting Physician: Dr. Marcum Attending Physician: Kike Marcum History of Present Illness This is an unfortunate 74 year old male patient known to the Palliative Care Consult team and is a Home Hospice patient; presented to the hospital with intractable back pain and was diagnosed with a metastatic paraspinal lesion in his thoracic spine. Additional PMH includes: chronic respiratory failure on continuous home oxygen at 2-3LPM, DM type 2, hypertension, hyperlipidemia, b enign prostatic hypertrophy, stage IV lung cancer. He has been experiencing chronic pain and is receiving Methadone, Dilaudid, Tramadol, and lidocaine patch, Tylenol, Ibuprofen for management. Palliative care is consulted to assist with providing pain management. Please see A/P for further details. Thank you for involving the palliative care team. We will follow accordingly. Allergies Allergy/AdvReac Type Severity Reaction Status Date / Time Bactrim Allergy Severe TONGUE Verified 12/02/17 08:11 SWELLS/FONG mupirocin Allergy Severe ANAPHYLAXIS Verified 08/03/19 23:56 sulfamethoxazole Allergy Severe TONGUE Verified 08/03/19 23:56 SWELLS/FONG trimethoprim Allergy Severe TONGUE Verified 08/03/19 23:56 SWELLS/FONG Iodinated Contrast Media Allergy Intermediate HIVES/ITCHI Verified 08/03/19 23:56 NG lisinopril Allergy Intermediate Tongue Verified 08/03/19 23:56 Swelling mustard Allergy Intermediate Hives, Verified 08/03/19 23:56 SOB, Itchy aspirin Allergy Mild ITCHY Verified 08/03/19 23:56 adhesive AdvReac Intermediate Tape - Rash Verified 08/03/19 23:56 Home Medications Home Medications Medication Instructions Recorded Confirmed Type albuterol sulfate 2 puff INHALATION Q4H PRN 03/30/18 08/04/19 History cyanocobalamin (vitamin B-12) 0 mcg PO QAM 03/30/18 08/04/19 History [Vitamin B-12] finasteride 0 mg PO QAM 03/30/18 08/04/19 History pyridoxine (vitamin B6) [Vitamin 0 mg PO QAM 03/30/18 08/04/19 History B-6] terazosin 0 mg PO HS 03/30/18 08/04/19 History cholecalciferol (vitamin D3) 10 0 unit PO QAM cap 12/01/18 08/04/19 History mcg (400 unit) capsule magnesium oxide 400 mg PO BID 12/03/18 08/04/19 History amlodipine [Norvasc] 0 mg PO HS 12/07/18 08/04/19 History sennosides 17.2 mg PO BID 12/07/18 08/04/19 History albuterol sulfate 1.25 mg INHALATION QID PRN 12/28/18 08/04/19 History diclofenac sodium [Voltaren] 4 applic EXT QID PRN #1 tube 01/15/19 08/04/19 Rx budesonide-formoterol [Symbicort] 2 puff INHALATION BID #1 box 04/05/19 08/04/19 Rx methadone 10 mg tablet 10 mg PO QID #12 tab 04/05/19 08/04/19 Rx sodium chloride [Saline Mist] 1 spray NA Q4H PRN #1 btl 04/05/19 08/04/19 Rx Spiriva with HandiHaler 1 puff INHALATION QAM 05/24/19 08/04/19 History omeprazole 20 mg PO QAM 05/24/19 08/04/19 History prednisone 0 mg PO QAM 05/24/19 08/04/19 History glimepiride 2 mg PO DAILY #30 tab 05/30/19 08/04/19 Rx azelastine 137 mcg (0.1 %) nasal 1 spray INTRANASAL BID PRN 06/16/19 08/04/19 History spray aerosol furosemide 40 mg tablet 0 mg PO QAM tab 06/16/19 08/04/19 History potassium chloride [Klor-Con M20] 40 meq PO DAILY 30 Days #60 tab 07/10/19 08/04/19 Rx spironolactone 25 mg PO DAILY #30 tab 07/10/19 08/04/19 Rx guaifenesin [Tussin] 200 mg PO DIRECTED PRN 08/04/19 08/04/19 History haloperidol lactate 2 mg PO Q4H PRN 08/04/19 08/04/19 History metformin 500 mg PO DAILY 08/04/19 08/04/19 History metolazone 5 mg PO UD 08/04/19 08/04/19 History tramadol 50 mg PO Q6H PRN 08/04/19 08/04/19 History Patient History Medical History Acute leg pain (Inactive) Bladder cancer CURRENTLY BEING TREATED W/ CHEMOTHERAPY Bladder cancer metastasized to pelvic region (Acute) BPH (benign prostatic hyperplasia) (Chronic) Chronic back pain Chronic respiratory failure (Chronic) Constipation COPD (chronic obstructive pulmonary disease) (Chronic) COPD (chronic obstructive pulmonary disease) (Chronic) DVT prophylaxis Elevated PSA (Chronic) Goals of care, counseling/discussion H/O hematuria (Resolved) H/O malignant neoplasm of skin (Chronic) Hyperlipidemia (Chronic) Hypertension (Resolved) Inguinal hernia BL Left leg swelling (Inactive) Non-small cell lung cancer (Chronic) CURRENTLY BEING TREATED W/ CHEMOTHERAPY Opioid dependence (Chronic) Osteoarthritis Stroke (Chronic) 2009 - NO PERIPHERAL VISION RT SIDE - NO NEUROLOGIST Umbilical hernia Urothelial carcinoma (Chronic) Surgical History H/O hand surgery (Resolved) H/O Moh's micrographic surgery for skin cancer (Resolved) H/O prostate biopsy (Acute) H/O prostatectomy History of bronchoscopy W/ BIOPSY History of colonoscopy History of surgery TRANSURETHRAL RESECTION OF BLADDER TUMOR X 3 History of surgery PLACEMENT OF MEDIPORT W/ REMOVAL History of ureter stent W/ REMOVAL Family History Father , 69yo [place], DM, arthritis, HTN Diabetes Cardiac disorder Hypertension Mother , age 84 from stroke Cardiac disorder Hypertension Brother Diabetes Cardiac disorder Hypertension Cancer, face Sister History of kidney cancer Hypertension Unknown Lung cancer Leukemia Basal cell carcinoma Social History Preferred Language: Tunisian Communication Ability: Effective Visual Impairment: No Limitations Hearing Ability: Hard of Hearing Yarn Spooler Required: No Beliefs That Will Affect Care: None marital status: marital status details: 1 son and 3 daughters Current Living Situation: Alone Current Living Situation Comment: apartment current occupational status: retired current occupation: [employer] Other Information That Helps Us Care for You: No Feels Safe at Home: Yes Safety Concerns: Feels Safe At This Time Smoking Status: Former smoker Tobacco Type: cigarettes ; Cigarettes Per Day: 20 ; Do You Dip or Chew Tobacco: No ; Second Hand Exposure: No ; Tobacco Cessation Education Requested by Patient: No Hx Alcohol Use: No Hx Substance Use: No caffeine: Yes (3 cups/day) during the past year weight has: decreased > 10 lbs Results & Data Vital Signs (Past 12 Hours) Vital Signs Temp Pulse Resp BP Pulse Ox 08/08/19 07:33 36.8 C 94 H 18 132/67 90 08/08/19 02:59 36.6 C 92 H 20 97/65 L 90 08/08/19 00:23 102/64 PG Care Time/CCT Total # of Minutes Spent Total Time Spent with Patient: Total time spent is greater than 50% in coordination of care (as documented) at patient's floor/unit and/or counseling patient: Coding Diagnoses Goals of care, counseling/discussion Z71.89 Chronic pain G89.3 Chronic pain type: due to neoplasm Compression fx, thoracic spine S22.000A Metastatic lung cancer (metastasis from lung to other site) C34.91 Laterality: right Acute on chronic diastolic CHF (congestive heart failure) I50.33
[2019-08-08] MEDS: AMLODIPINE BESYLATE 5 MG TAB PO SCH (20:06)
[2019-08-08] MEDS: TERAZOSIN HCL 1 MG CAP PO SCH (20:07)
[2019-08-09] MEDS: ACETAMINOPHEN 500 MG TAB PO SCH ×3 (01:27→18:01)
[2019-08-09] MEDS: DOCUSATE SODIUM 100 MG CAP PO PRN (01:30)
[2019-08-09] MEDS: TRAMADOL HCL 50 MG TABLET PO PRN ×2 (02:51→18:01)
[2019-08-09] MEDS: ALBUTEROL 0.083% NEBU SOLN 3 ML VIAL INH PRN (04:32)
[2019-08-09] MEDS: METHADONE HCL 5 MG TAB PO SCH ×4 (05:37→22:05)
[2019-08-09] MEDS: HEPARIN SOD 5,000 UNIT/0.5 ML VIAL SQ SCH ×3 (05:39→22:06)
[2019-08-09] MEDS: HYDROmorphone INJ 1 MG/ML SYRINGE IV PRN ×2 (07:57→15:52)
[2019-08-09] MEDS: LIDOCAINE 5% 1 PATCH TD SCH (07:58)
[2019-08-09] MEDS: CYANOCOBALAMIN 500 MCG TABLET (VITAMIN B-12) PO SCH (08:14)
[2019-08-09] MEDS: SPIRONOLACTONE 25 MG TAB PO SCH (08:14)
[2019-08-09] MEDS: PYRIDOXINE HCL 50 MG TAB PO SCH (08:14)
[2019-08-09] MEDS: POTASSIUM CHLORIDE 20 MEQ TABCR PO SCH (08:14)
[2019-08-09] MEDS: FUROSEMIDE 40 MG TAB PO SCH (08:14)
[2019-08-09] MEDS: MAGNESIUM OXIDE 400 MG TAB PO SCH ×2 (08:14→20:54)
[2019-08-09] MEDS: CHOLECALCIFEROL 1,000 UNITS 25 MCG TAB PO SCH (08:14)
[2019-08-09] MEDS: PANTOprazole 40 MG TAB PO SCH (08:14)
[2019-08-09] MEDS: FINASTERIDE 5 MG TAB PO SCH (08:14)
[2019-08-09] MEDS: SENNA 8.6 MG TAB PO SCH ×2 (08:14→20:55)
[2019-08-09] MEDS: INSULIN ASPART 100 UNITS/ML 3 ML PEN SC SCH ×4 (08:15→20:56)
[2019-08-09] MEDS: UMECLIDINIUM BROMIDE 62.5MCG/BLISTER 7 PUFFS/INHALER INH SCH (08:15)
[2019-08-09] MEDS: FLUTICASONE/VILANTEROL 100/25MCG 14 PUFFS/INHALER INH SCH (08:15)
[2019-08-09] MEDS: DICLOFENAC SOD 1% GEL 100 GM TUBE EXT PRN (12:50)
[2019-08-09] MEDS ORDERED: CYCLOBENZAPRINE HCL 10 MG TAB PO STA (17:27)
[2019-08-09] MEDS: TERAZOSIN HCL 1 MG CAP PO SCH (20:54)
[2019-08-09] MEDS: AMLODIPINE BESYLATE 5 MG TAB PO SCH (20:55)
--- NOTE | 2019-08-09 22:38 | Hospitalist Progress Note ---
Date of Service August 09, 2019 Assessment & Plan (1) Compression fracture of body of thoracic vertebra: Patient was admitted as a GIP. Patient has 3 compression fracture thoracic spine at T5, T6, and T8 likely new. There is also a older compression fracture at T7 seen on x-ray. Patient cannot tolerate MRI to confirm this. Patient failed outpatient therapy with seems responding well to IV Dilaudid. For now will continue to manage his pain. Discussed with palliative care team as initally plan was to have them involved. However they informed me that patient is a GIP patient and home hospice will be assisting. Patient had recently increased methadone on 08/07. will add one dose of cycobenzaprine and will monitor response. (2) Stage 4 lung cancer: Patient has stage IV lung carcinoma, is hospice. Patient follows with Dr. Gu. Consider consultation if necessary. (3) Chronic respiratory failure with hypoxia and hypercapnia: Patient's O2 saturation is fine with nasal cannula. He typically wears this in his mouth since he can not tolerate in his nose and seems to be effective. Can continue this is noted. 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 Will add sliding scale with an ADA diet. (6) COPD (chronic obstructive pulmonary disease): - patient was SOB on admission - CXR showing no acute process - started on IV methylprednisolone in ED, since discontinued as patient not felt to be in acute exacerbation - continue home inhalers (7) Essential (primary) hypertension: (8) BPH (benign prostatic hyperplasia): (9) Acute on chronic diastolic CHF (congestive heart failure): (10) GERD (gastroesophageal reflux disease): Admission and Anticipated Discharge Date Admission Date: August 04, 2019 Subjective Patient states that he continues to have back pain. It is mainly in the thoracic region, next to the Review of Systems Constitutional: no chills, no weakness, no weight loss and no weight gain Eyes: as per Subjective / HPI Respiratory: + cough; no chest congestion, no dyspnea on exertion and no hemoptysis Musculoskeletal: + back pain; no neck pain, no radicular pain, no joint pain, no stiffness and no myalgia Physical Exam Physical Exam: Constitutional: cooperative; no acute distress Neck: trachea midline, no thyromegaly + thick neck Respiratory: normal respiratory effort Auscultation: + diminished lung sounds, + rhonchi no crackles, no wheezing and no rales Cardiovascular: Rate/Rhythm: regular rate and regular rhythm Heart Sounds: normal S1 and normal S2 Vessels: no carotid bruit Extremities: + pedal edema Gastrointestinal (Abdomen): Inspection/Auscultation: abdomen normal to inspection Percussion/Palpation: abdomen soft; abdomen nontender, no guarding, abdomen not rigid and no hepatosplenomegaly Skin: no rashes, warm and dry Results & Data [facility]) Vital Signs (Past 12 Hours) Vital Signs Temp Pulse Resp BP Pulse Ox 08/09/19 15:25 36.3 C L 86 18 177/71 H 96 PG Care Time/CCT Total # of Minutes Spent Total Time Spent with Patient: Total time spent is greater than 50% in coordination of care (as documented) at patient's floor/unit and/or counseling patient: Coding Level of Care Code 22053 Subseq Hosp Care Lvl 2 Diagnoses Compression fracture of body of thoracic vertebra S22.000A Stage 4 lung cancer C34.90 Chronic respiratory failure with hypoxia and hypercapnia J96.11; J96.12 SIRS (systemic inflammatory response syndrome) R65.10 DM w/o complication type II E11.9 COPD (chronic obstructive pulmonary disease) J44.9 COPD type: unspecified COPD Essential (primary) hypertension I10 BPH (benign prostatic hyperplasia) N40.0 Acute on chronic diastolic CHF (congestive heart failure) I50.33 GERD (gastroesophageal reflux disease) K21.9 Time Spent (min) 25 (1) COPD (chronic obstructive pulmonary disease) COPD type: unspecified COPD Qualified Code(s): J44.9 - Chronic obstructive pulmonary disease, unspecified
[2019-08-10] MEDS: ACETAMINOPHEN 500 MG TAB PO SCH ×3 (02:10→18:03)
[2019-08-10] MEDS: ALBUTEROL 0.083% NEBU SOLN 3 ML VIAL INH PRN (02:34)
[2019-08-10] MEDS: METHADONE HCL 5 MG TAB PO SCH ×4 (05:17→22:15)
[2019-08-10] MEDS: HEPARIN SOD 5,000 UNIT/0.5 ML VIAL SQ SCH ×3 (05:18→20:35)
[2019-08-10 05:48] LABS: Hemoglobin 10.5 g/dL (14.0-18.0); Mean Corpuscular Hemoglobin 31.1 pg (25-34); Mean Corpuscular Hgb Conc 31.8 g/dL (32-36); Mean Corpuscular Volume 97.6 fL (80-100); Mean Platelet Volume 9.9 fL (7.4-10.4); Platelet Count 162 K/uL (130-400); RDW Coefficient of Variation 16.6 % (11.5-14.5); RDW Standard Deviation 58.7 fL (36.4-46.3); Red Blood Count 3.38 M/uL (4.7-6.1); White Blood Count 8.88 K/uL (4.8-10.8)
[2019-08-10] MEDS: POTASSIUM CHLORIDE 20 MEQ TABCR PO SCH (08:29)
[2019-08-10] MEDS: CYANOCOBALAMIN 500 MCG TABLET (VITAMIN B-12) PO SCH (08:29)
[2019-08-10] MEDS: SPIRONOLACTONE 25 MG TAB PO SCH (08:29)
[2019-08-10] MEDS: CHOLECALCIFEROL 1,000 UNITS 25 MCG TAB PO SCH (08:29)
[2019-08-10] MEDS: PYRIDOXINE HCL 50 MG TAB PO SCH (08:29)
[2019-08-10] MEDS: FINASTERIDE 5 MG TAB PO SCH (08:29)
[2019-08-10] MEDS: FUROSEMIDE 40 MG TAB PO SCH (08:29)
[2019-08-10] MEDS: MAGNESIUM OXIDE 400 MG TAB PO SCH ×2 (08:30→20:36)
[2019-08-10] MEDS: PANTOprazole 40 MG TAB PO SCH (08:30)
[2019-08-10] MEDS: FLUTICASONE/VILANTEROL 100/25MCG 14 PUFFS/INHALER INH SCH (08:30)
[2019-08-10] MEDS: UMECLIDINIUM BROMIDE 62.5MCG/BLISTER 7 PUFFS/INHALER INH SCH (08:30)
[2019-08-10] MEDS: SENNA 8.6 MG TAB PO SCH ×2 (08:30→20:33)
[2019-08-10] MEDS: DICLOFENAC SOD 1% GEL 100 GM TUBE EXT PRN ×2 (08:30→13:03)
[2019-08-10] MEDS: LIDOCAINE 5% 1 PATCH TD SCH (08:31)
[2019-08-10] MEDS: INSULIN ASPART 100 UNITS/ML 3 ML PEN SC SCH ×4 (08:38→20:34)
[2019-08-10] MEDS: DOCUSATE SODIUM 100 MG CAP PO PRN (12:04)
[2019-08-10] MEDS: TRAMADOL HCL 50 MG TABLET PO PRN (12:04)
[2019-08-10] MEDS ORDERED: MICONAZOLE NITRATE POWDER 43 GM EXT PRN (12:05)
[2019-08-10] MEDS ORDERED: CYCLOBENZAPRINE HCL 10 MG TAB PO STA (12:24)
[2019-08-10] MEDS: HYDROmorphone INJ 1 MG/ML SYRINGE IV PRN (15:51)
[2019-08-10] MEDS: IBUPROFEN 600 MG TAB PO PRN (16:11)
[2019-08-10] MEDS: TERAZOSIN HCL 1 MG CAP PO SCH (20:35)
[2019-08-10] MEDS: AMLODIPINE BESYLATE 5 MG TAB PO SCH (20:35)
--- NOTE | 2019-08-10 21:44 | Hospitalist Progress Note ---
Date of Service August 10, 2019 Assessment & Plan (1) Compression fracture of body of thoracic vertebra: Patient was admitted as a GIP. Patient has 3 compression fracture thoracic spine at T5, T6, and T8 likely new. There is also a older compression fracture at T7 seen on x-ray. Patient cannot tolerate MRI to confirm this. Patient failed outpatient therapy with seems responding well to IV Dilaudid. For now will continue to manage his pain. Discussed with palliative care team as initally plan was to have them involved. However they informed me that patient is a GIP patient and home hospice will be assisting. Patient had recently increased methadone on 08/07. Patient has required PRN doses of dilaudid with 2 doses of cyclobenzaprine. Patient was seen multiple times, patient does not want to be discharged today. (2) Stage 4 lung cancer: Patient has stage IV lung carcinoma, is hospice. Patient follows with Dr. Gu. Consider consultation if necessary. (3) Chronic respiratory failure with hypoxia and hypercapnia: Patient's O2 saturation is fine with nasal cannula. He typically wears this in his mouth since he can not tolerate in his nose and seems to be effective. Can continue this is noted. 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 Will add sliding scale with an ADA diet. (6) COPD (chronic obstructive pulmonary disease): - patient was SOB on admission - CXR showing no acute process - started on IV methylprednisolone in ED, since discontinued as patient not felt to be in acute exacerbation - continue home inhalers (7) Essential (primary) hypertension: (8) BPH (benign prostatic hyperplasia): (9) Acute on chronic diastolic CHF (congestive heart failure): (10) GERD (gastroesophageal reflux disease): Admission and Anticipated Discharge Date Admission Date: August 04, 2019 Subjective 74 yo male reports he continues to have pain in his back, but the pain appears to be better. Patient seen on multiple encounters today. Review of Systems Review of Systems: All systems reviewed & are unremarkable except as noted in HPI & below Physical Exam Physical Exam: Constitutional: cooperative; no acute distress Neck: trachea midline, no thyromegaly + thick neck Respiratory: normal respiratory effort Auscultation: + diminished lung sounds, + rhonchi no crackles, no wheezing and no rales Cardiovascular: Rate/Rhythm: regular rate and regular rhythm Heart Sounds: normal S1 and normal S2 Vessels: no carotid bruit Extremities: + pedal edema Gastrointestinal (Abdomen): Inspection/Auscultation: abdomen normal to inspection Percussion/Palpation: abdomen soft; abdomen nontender, no guarding, abdomen not rigid and no hepatosplenomegaly Skin: no rashes, warm and dry Musculoskeletal: Tenderness to bilateral paraspinal muscles. Results & Data Results & Data ([facility]) Vital Signs (Past 12 Hours) Vital Signs Temp Pulse Resp BP Pulse Ox 08/10/19 15:27 36.8 C 95 H 20 105/66 97 PG Care Time/CCT Total # of Minutes Spent Total Time Spent with Patient: Total time spent is greater than 50% in coordination of care (as documented) at patient's floor/unit and/or counseling patient: Coding Level of Care Code 86459 Subseq Hosp Care Lvl 3 Diagnoses Compression fracture of body of thoracic vertebra S22.000A Stage 4 lung cancer C34.90 Chronic respiratory failure with hypoxia and hypercapnia J96.11; J96.12 SIRS (systemic inflammatory response syndrome) R65.10 DM w/o complication type II E11.9 COPD (chronic obstructive pulmonary disease) J44.9 COPD type: unspecified COPD Essential (primary) hypertension I10 BPH (benign prostatic hyperplasia) N40.0 Acute on chronic diastolic CHF (congestive heart failure) I50.33 GERD (gastroesophageal reflux disease) K21.9 Time Spent (min) 35 (1) COPD (chronic obstructive pulmonary disease) COPD type: unspecified COPD Qualified Code(s): J44.9 - Chronic obstructive pulmonary disease, unspecified
[2019-08-11] MEDS: ACETAMINOPHEN 500 MG TAB PO SCH ×3 (04:49→17:28)
[2019-08-11] MEDS: METHADONE HCL 5 MG TAB PO SCH ×3 (04:58→17:27)
[2019-08-11] MEDS: HEPARIN SOD 5,000 UNIT/0.5 ML VIAL SQ SCH ×2 (05:01→11:53)
[2019-08-11] MEDS: UMECLIDINIUM BROMIDE 62.5MCG/BLISTER 7 PUFFS/INHALER INH SCH (07:40)
[2019-08-11] MEDS: PANTOprazole 40 MG TAB PO SCH (07:40)
[2019-08-11] MEDS: FLUTICASONE/VILANTEROL 100/25MCG 14 PUFFS/INHALER INH SCH (07:40)
[2019-08-11] MEDS: FUROSEMIDE 40 MG TAB PO SCH (07:40)
[2019-08-11] MEDS: FINASTERIDE 5 MG TAB PO SCH (07:41)
[2019-08-11] MEDS: PYRIDOXINE HCL 50 MG TAB PO SCH (07:41)
[2019-08-11] MEDS: CYANOCOBALAMIN 500 MCG TABLET (VITAMIN B-12) PO SCH (07:41)
[2019-08-11] MEDS: SPIRONOLACTONE 25 MG TAB PO SCH (07:41)
[2019-08-11] MEDS: SENNA 8.6 MG TAB PO SCH (07:42)
[2019-08-11] MEDS: LIDOCAINE 5% 1 PATCH TD SCH (07:42)
[2019-08-11] MEDS: DICLOFENAC SOD 1% GEL 100 GM TUBE EXT PRN (07:42)
[2019-08-11] MEDS: POTASSIUM CHLORIDE 20 MEQ TABCR PO SCH (07:42)
[2019-08-11] MEDS: MAGNESIUM OXIDE 400 MG TAB PO SCH (07:42)
[2019-08-11] MEDS: CHOLECALCIFEROL 1,000 UNITS 25 MCG TAB PO SCH (07:42)
[2019-08-11] MEDS: DOCUSATE SODIUM 100 MG CAP PO PRN (07:52)
[2019-08-11] MEDS: INSULIN ASPART 100 UNITS/ML 3 ML PEN SC SCH ×3 (07:54→17:30)
[2019-08-11] MEDS: HYDROmorphone INJ 1 MG/ML SYRINGE IV PRN (09:25)
[2019-08-11] MEDS ORDERED: CYCLOBENZAPRINE HCL 10 MG TAB PO STA (09:39)
[2019-08-11] MEDS ORDERED: OXYCODONE HCL IR 5 MG TAB (IMMEDIATE RELEASE) PO PRN ×2 (09:41→09:42)
[2019-08-11] MEDS ORDERED: LACTULOSE SYRUP 30 GM/45 ML UDP PO ONE (12:00)
--- NOTE | 2019-08-16 23:42 | Discharge Summary ---
Date of Service August 11, 2019 Admission HPI Per Admitting Provider This is a 74-year-old male with past medical history of metastatic lung cancer on hospice that presents today complaining of severe back pain. Patient is a decent historian. Patient tells me that starting yesterday morning he had significant back pain that woke him from sleep. This is mostly in the thoracic region without radiation. It hurts much more with movement. While initially denied trauma, he does tell me that 2 days prior, he had a partial fall where he fell against a door jam and did not think he injured himself. He does have significant cough but tells me that this is at his baseline. He denies any fevers at home but did present with a temp of 37.8 C. Patient presented to the emergency room on the evening of 08/02. They note the patient is on methadone, tramadol, and liquid morphine but none of these will help with the pain. He was given a dose of Dilaudid along with IV morphine. Patient cannot tolerate a CT scan. Patient apparently did well with pain medication subsequently discharged home. Earlier today, patient was having significant more back pain. Called the [facility] to send someone to help him. However, the pain was so severe that he called EMS prior to their arrival. Patient was subsequently brought to the emergency room. At the time my evaluation, the patient is in to be much more comfortable. Received Dilaudid 0.5mg which should relieve the pain. He does note continued significant pain with movement. Principal Diagnosis compression fracture of thoracic spine Discharge Exam Constitutional: cooperative; no acute distress Neck: trachea midline, no thyromegaly + thick neck Respiratory: normal respiratory effort Auscultation: + diminished lung sounds, + rhonchi no crackles, no wheezing and no rales Cardiovascular: Rate/Rhythm: regular rate and regular rhythm Heart Sounds: normal S1 and normal S2 Vessels: no carotid bruit Extremities: + pedal edema Gastrointestinal (Abdomen): Inspection/Auscultation: abdomen normal to inspection Percussion/Palpation: abdomen soft; abdomen nontender, no guarding, abdomen not rigid and no hepatosplenomegaly Skin: no rashes, warm and dry Musculoskeletal: Decreased tenderness to bilateral paraspinal muscles. Discharge Data Allergies Allergy/AdvReac Type Severity Reaction Status Date / Time Bactrim Allergy Severe TONGUE Verified 12/02/17 08:11 SWELLS/FONG mupirocin Allergy Severe ANAPHYLAXIS Verified 08/03/19 23:56 sulfamethoxazole Allergy Severe TONGUE Verified 08/03/19 23:56 SWELLS/FONG trimethoprim Allergy Severe TONGUE Verified 08/03/19 23:56 SWELLS/FONG Iodinated Contrast Media Allergy Intermediate HIVES/ITCHI Verified 08/03/19 23:56 NG lisinopril Allergy Intermediate Tongue Verified 08/03/19 23:56 Swelling mustard Allergy Intermediate Hives, Verified 08/03/19 23:56 SOB, Itchy aspirin Allergy Mild ITCHY Verified 08/03/19 23:56 adhesive AdvReac Intermediate Tape - Rash Verified 08/03/19 23:56 Consultations 08/04/19 12:30 ED Decision to Admit Stat 08/07/19 11:00 Consult Case Management - Discharge Planning Routine Ordered Studies 08/04/19 09:57 US venous doppler LE RT Stat Hospital Course (1) Compression fracture of body of thoracic vertebra: Patient was admitted as a GIP. Patient has 3 compression fracture thoracic spine at T5, T6, and T8 likely new. There is also a older compression fracture at T7 seen on x-ray. Patient cannot tolerate MRI to confirm this. Patient failed outpatient therapy with seems responding well to IV Dilaudid. For now will continue to manage his pain. Discussed with palliative care team as initally plan was to have them involved. However they informed me that patient is a GIP patient and home hospice will be assisting. Patient had recently increased methadone on 08/07. Patient has required PRN doses of dilaudid with 2 doses of cyclobenzaprine. Will discharge today as patient;s pain is better controlled. (2) Stage 4 lung cancer: Patient has stage IV lung carcinoma, is hospice. Patient follows with Dr. Gu. Consider consultation if necessary. (3) Chronic respiratory failure with hypoxia and hypercapnia: Patient's O2 saturation is fine with nasal cannula. He typically wears this in his mouth since he can not tolerate in his nose and seems to be effective. Can continue this is noted. 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 Will add sliding scale with an ADA diet. (6) COPD (chronic obstructive pulmonary disease): - patient was SOB on admission - CXR showing no acute process - started on IV methylprednisolone in ED, since discontinued as patient not felt to be in acute exacerbation - continue home inhalers (7) Essential (primary) hypertension: (8) BPH (benign prostatic hyperplasia): (9) Acute on chronic diastolic CHF (congestive heart failure): (10) GERD (gastroesophageal reflux disease): Total Time Total Time Spent Total Time Spent (In Minutes): 31 Total Time Includes: Examination of the Patient, Discharge Planning and Medication Reconciliation Discharge Plan Discharge Items Patient Disposition: Home - Home Health Services Reason For Visit: back pain Discharge Diagnosis: back pain Activity: Resume your previous activity Non-emergency contact: Primary Care Provider Call non-emergency contact if: you have any medication questions Follow-up/Referrals: Kathy Del Cid C.R.N.P. [Primary Care Provider] - Diet: Carb Consistent or DM2 Addtl Attending Provider Instructions: . During your stay at [facility], we have made an effort to correct the problem that brought you to the hospital while keeping you as comfortable as possible. Medications were used to bring your condition under control and your discharge instructions will include directions for any medications you should take after leaving the hospital. Pending Studies at Discharge: No Stand-Alone Forms: My [facility] [id number], Smoking Cessation Medications and DC Order Prescriptions: New terazosin 1 mg Capsule 2 mg PO HS Qty: 30 RF: 0 amlodipine [Norvasc] 5 mg Tablet 5 mg PO HS Qty: 30 RF: 0 lidocaine 5 % Adhesive Patch,Medicated 1 patch transdermal QAM Qty: 30 RF: 0 finasteride [Proscar] 5 mg Tablet 5 mg PO QAM Qty: 0 RF: 0 oxycodone 5 mg Tablet 5 mg PO Q4H PRN (Reason: moderate pain) Qty: 0 RF: 0 oxycodone 5 mg Tablet 10 mg PO Q4H PRN (Reason: severe pain) Qty: 50 RF: 0 Continued furosemide 40 mg tablet 0 mg PO QAM RF: 0 cholecalciferol (vitamin D3) 400 unit capsule 0 unit PO QAM RF: 0 cyanocobalamin (vitamin B-12) [Vitamin B-12] 100 mcg Tablet 0 mcg PO QAM RF: 0 pyridoxine (vitamin B6) [Vitamin B-6] 100 mg Tablet 0 mg PO QAM RF: 0 albuterol sulfate 90 mcg/actuation Hfa Aerosol Inhaler 2 puff INHALATION Q4H PRN (Reason: Shortness Of Breath) RF: 0 magnesium oxide 400 mg magnesium Capsule 400 mg PO BID RF: 0 budesonide-formoterol [Symbicort] 160-4.5 mcg/actuation Hfa Aerosol Inhaler 2 puff inhalation BID Qty: 1 RF: 0 sodium chloride [Saline Mist] 0.65 % Aerosol,Barto 1 spray NA Q4H PRN (Reason: nasal congestion) Qty: 1 RF: 0 tramadol 50 mg Tablet 50 mg PO Q6H PRN (Reason: Pain) RF: 0 guaifenesin [Tussin] 100 mg/5 mL Liquid 200 mg PO DIRECTED PRN (Reason: Cough) RF: 0 sennosides 8.6 mg Tablet 17.2 mg PO BID RF: 0 albuterol sulfate 1.25 mg/3 mL Solution For Nebulization 1.25 mg INHALATION QID PRN (Reason: Shortness Of Breath) RF: 0 diclofenac sodium [Voltaren] 1 % Gel 4 applic EXT QID PRN (Reason: joint pain) Qty: 1 RF: 0 prednisone 10 mg tablet 0 mg PO QAM RF: 0 omeprazole 20 mg capsule,delayed release(DR/EC) 20 mg PO QAM RF: 0 Spiriva with HandiHaler 18 mcg capsule, w/inhalation device 1 puff inhalation QAM RF: 0 glimepiride 2 mg tablet 2 mg PO DAILY Qty: 30 RF: 2 azelastine 137 mcg (0.1 %) aerosol,spray 1 spray INTRANASAL BID PRN (Reason: Nasal Congestion) RF: 0 spironolactone 25 mg tablet 25 mg PO DAILY Qty: 30 RF: 1 haloperidol lactate 2 mg/mL concentrate 2 mg PO Q4H PRN (Reason: Nausea And Vomiting) RF: 0 metolazone 5 mg tablet 5 mg PO UD RF: 0 metformin 500 mg tablet extended release 24 hr 500 mg PO DAILY RF: 0 Discontinued methadone 10 mg tablet 10 mg PO QID Qty: 12 RF: 0 terazosin 2 mg Capsule 0 mg PO HS RF: 0 finasteride 5 mg Tablet 0 mg PO QAM RF: 0 amlodipine [Norvasc] 5 mg tablet 0 mg PO HS RF: 0 Discharge Orders: Discharge Order (Routine); Ordered 08/11/19 Ordered By: Kike Marcum Admission Data Admit Date/Time: 08/04/19 13:29 Attending Provider: Kike Marcum Admit Provider: Sixto Telles Primary Care Provider: Kathy Del Cid Other Providers: Sixto Telles ; [facility] Other Interventions: Discharge Summary Assessment (RN) Last Done: 08/11/19 14:53 DC Date/Time DO NOT enter until pt leaves facility: 08/11/19 17:58 Coding Level of Care Code D/C Day Management >30 mins Diagnoses Compression fracture of body of thoracic vertebra S22.000A Stage 4 lung cancer C34.90 Chronic respiratory failure with hypoxia and hypercapnia J96.11; J96.12 SIRS (systemic inflammatory response syndrome) R65.10 DM w/o complication type II E11.9 COPD (chronic obstructive pulmonary disease) J44.9 COPD type: unspecified COPD Essential (primary) hypertension I10 BPH (benign prostatic hyperplasia) N40.0 Acute on chronic diastolic CHF (congestive heart failure) I50.33 GERD (gastroesophageal reflux disease) K21.9
== END 2019-08-11 17:58 | disposition home health service (06) | DRG 542 ==
LOC: ED 09:25 → SUATTDRO 13:29 → 2W 13:29 → 4W 08-05 19:00 → 2W 08-08 21:19